=== PATIENT | female | born 1965 | race Caucasian/White ===

== ENCOUNTER 2023-08-05 10:55 | Inpatient (IN) ==
--- NOTE | 2023-08-05 11:51 | Emergency Department Note ---
Impression & Plan Back pain, Lumbar radiculopathy, UTI (urinary tract infection), Mass of buttock ED Provider Note ED Provider Note NAME: SOCORRO VALENZUELA AGE:58 SEX: Female : 1965 ARRIVES VIA: Private vehicle INFORMANT: Patient ED PROVIDER(s): Sybil Milner DO CHIEF COMPLAINT: Right low back pain, right hip pain, radicular pain HPI: This is a 58-year-old female who presents to the emergency department due to concern for worsening right low back pain, right hip pain, and pain rating into the right lower extremity. Symptoms began several months ago and have been slowly worsening. Patient takes Tylenol at home, naproxen, and Flexeril. She states that time it is hard to walk and her leg feels weak. She denies any overt numbness/tingling to the leg or in her genital region. No incontinence or change in urine/stools. Occasionally she has accompanying abdominal pain. No fevers or chills, no nausea or vomiting. Patient is a diabetic. She states she did see Dr. Malagon at [facility] as she was concerned it was her hip. She states she had a hip x-ray performed and was referred for physical therapy. No other imaging. PAST MEDICAL HISTORY:See Below PAST SURGICAL HISTORY:See Below FAMILY HISTORY:See Below SOCIAL HISTORY:See Below HOME MEDICATIONS:See Below ALLERGIES:See Below VITALS:See Below PHYSICAL EXAMINATION: GENERAL: alert, uncomfortable appearing, well nourished, mild distress, non- toxic EYE EXAM: normal conjunctiva, PERRL and EOM's grossly intact OROPHARYNX: no exudate, no erythema, lips, buccal mucosa, and tongue normal and mucous membranes are moist NECK: supple, no nuchal rigidity, no adenopathy, non-tender LUNGS: Clear to auscultation. Normal chest wall mechanics, no w/r/r HEART: no murmurs, S1 normal and S2 normal ABDOMEN: abdomen soft, non-tender, normo-active bowel sounds, no masses, no rebound or guarding. BACK: Pain with palpation across the right lateral lumbar spine and right PSIS. SKIN: no rashes, petechiae, orbruising UPPER EXTREMITIES: upper extremities are grossly normal. Decreased right lower extremity ROM, nml pulses b/l. Normal sensation bilaterally. Pain with palpation over the right lateral and right posterior hip. LOWER EXTREMITIES: No pitting edema. FROM, nml pulses b/l. NEURO EXAM: Normal sensorium, cranial nerves II-XII grossly intact, normal speech, no facial droop,nogross weakness of arms, no gross weakness of legs. Gross sensation intact. No ataxia. Vital Signs: reviewed and remarkable Differential Diagnosis: lumbar radiculopathy, muscle strain, facture, cauda equina, mass, disc herniation, UTI, renal colic, septic arthritis, as well as others were considered MEDICAL DECISION MAKING: This is a 58-year-old female who presents emergency department due to concern for right low back/right hip pain with radiation of the right lower extremity. This has been worsening over the course of several months. Patient was afebrile vital signs stable. Initially we discussed treatment of pain and imaging of the low back. A BSG and UA were also added. Patient's urinalysis suggestive of possible infection and given patient is a diabetic, we discussed additional labs and imaging. Patient continued to have pain despite initial gabapentin and lidocaine, and began requiring IV pain medication. She was given IV Tylenol and IV morphine. Patient sent back for CT of the abdomen pelvis to evaluate for ascending UTI/pyelonephritis. No evidence of SANDRA, mild leukopenia noted on CBC CT of the abdomen and pelvis revealed gluteal mass with lymphadenopathy and evidence of metastatic disease concerning for possible lymphoma. Case discussed with on-call oncology. Extensive time spent at bedside discussing with patient and family. Patient admitted due to ongoing needs for pain control is after additional morphine, Toradol, Valium and Dilaudid she still appeared uncomfortable. Patient was given IV Rocephin initially for UTI, urine culture pending. Patient verbalized understanding of results and plan at this time. Case discussed with hospitalist team for additional evaluation and management. Consultation(s): 1558: Discussed with Dr. Archibald, oncology. No need to transfer. 1628: Discussed with Fiorella Cuellar hospitalist team, for additional evaluation and management. ER Treatment Provided: See below 1252: Patient updated on CT results. Patient now appears markedly more uncomfortable. She states she does have a history of recurrent UTIs, has not had any urinary symptoms recently. Diagnostics Interpreted By Me: -Cardiac Monitoring: An order was placed for continuous cardiac monitoring. The monitor shows a rate of 66 with normal sinus rhythm. -Laboratory studies: As stated above and show below. -Imaging studies: CT lumbar spine: No obvious fracture Triage Nursing Note Reviewed Prior/Outside Records Reviewed Past Med/Surg History Medical History Delivered by section Depression Hypothyroidism GERD (gastroesophageal reflux disease) HLD (hyperlipidemia) HTN (hypertension) DM2 (diabetes mellitus, type 2) Surgical History Hx of tonsillectomy H/O tubal ligation H/O dilation and curettage H/O hernia repair Family History Other Cancer Social History Smoking Status: Former smoker Feels Safe at Home: Yes Allergies Allergies Allergy/AdvReac Type Severity Reaction Status Date / Time adhesive tape Allergy Mild Rash/Itchin Unverified 08/05/23 17:38 [facility] Home Meds Home Medications Medication Instructions Recorded Confirmed metformin 1,000 mg tablet 1,000 mg PO BID ##0 09/21/09 08/05/23 aspirin 81 mg tablet,delayed 81 mg PO QAM ##0 08/15/13 08/05/23 release atorvastatin 20 mg tablet (Lipitor) 20 mg PO PM #0 tabs 08/15/13 08/05/23 citalopram 20 mg tablet 20 mg PO QAM ##0 08/15/13 08/05/23 lisinopril 10 mg tablet 10 mg PO QAM ##0 08/15/13 08/05/23 insulin degludec 100 unit/mL (3 36 unit subcut QAM 05/15/21 08/05/23 mL) subcutaneous pen (Tresiba FlexTouch U-100 insulin) alendronate 70 mg tablet 70 mg PO WK 08/05/23 08/05/23 empagliflozin 25 mg tablet 25 mg PO QAM 08/05/23 08/05/23 (Jardiance) levothyroxine 150 mcg tablet 150 mcg PO DAILYBB 08/05/23 08/05/23 omeprazole 40 mg capsule,delayed 40 mg PO DAILYBB 08/05/23 08/05/23 release oxybutynin chloride 5 mg tablet 5 mg PO AMHS 08/05/23 08/05/23 semaglutide 1 mg/dose (4 mg/3 mL) 1 mg subcut WK 08/05/23 08/05/23 subcutaneous pen injector (Ozempic) Results & Data (ED) Vital Signs Vital Signs - 24 hr 08/05/23 11:02 08/05/23 12:41 08/05/23 16:00 Temperature 36.3 C L Temperature Source Temporal Artery Scan Pulse Rate 97 H Pulse Rate [Finger] 86 65 Respiratory Rate 18 20 12 Respiratory Effort / Characteristics Non-Labored Spontaneous Respiratory Depth Normal Blood Pressure 122/83 Blood Pressure [Right Arm] 122/85 Blood Pressure Mean 96 Blood Pressure Mean [Right Arm] 97 Pulse Oximetry 99 97 94 Oxygen Delivery Method Room Air Room Air Nasal Cannula Oxygen Flow Rate 1 Sepsis Recent Fever Within 48 Hours No Sepsis New/Unexplained Change in Mental Status No Sepsis Action Taken by Nursing No Action Required Laboratory Data 08/05/23 13:11 08/05/23 13:11 Lab Results 08/05/23 08/05/23 Range/Units 11:48 13:11 WBC 3.29 L (4.8-10.8) K/ul RBC 4.02 L (4.20-5.40) M/uL Hgb 11.7 L (12.0-16.0) g/dl Hct 36.9 L (37.0-47.0) % MCV 91.8 (80.0-100.0) fL MCH 29.1 (25.0-34.0) pg MCHC 31.7 L (32.0-36.0) g/dL RDW Std Deviation 50.7 H (36.4-46.3) fL RDW Coeff of Lisset 15.1 H (11.5-14.5) % Plt Count 233 (130-400) K/uL MPV 8.8 L (9.4-12.4) fL Immature Gran % (Auto) 0.9 % Neut % (Auto) 54.8 % Lymph % (Auto) 34.3 % Boundary % (Auto) 7.9 % Eos % (Auto) 1.5 % Baso % (Auto) 0.6 % Neut # (Auto) 1.80 (1.40-6.50) K/uL Lymph # (Auto) 1.13 L (1.20-3.40) K/uL Boundary # (Auto) 0.26 (0.11-0.59) K/uL Eos # (Auto) 0.05 (0.00-0.50) K/uL Baso # (Auto) 0.02 (0.00-0.20) K/uL Immature Gran # (Auto) 0.03 (0.01-0.20) K/uL Sodium 137 (136-145) mmol/L Potassium 4.4 (3.5-5.1) mmol/L Chloride 101 (98-107) mmol/L Carbon Dioxide 28 (21-32) mmol/L Anion Gap 8 (3-11) BUN 18 (6-23) mg/dl Creatinine 0.59 L (0.6-1.2) mg/dl Est Cr Clr Drug Dosing 111.5 ml/min Est GFR ( Amer) 118.8 ml/min Est GFR (Non-Af Amer) 102.5 ml/min BUN/Creatinine Ratio 30.5 H (10-20) Glucose 78 (70-99(Fasting)) mg/dl POC Glucose 107 H (70-99) mg/dl Calcium 9.7 (8.6-10.3) mg/dl Total Bilirubin 0.5 (0.2-1.0) mg/dl AST 29 (13-39) U/L ALT 20 (7-52) U/L Alkaline Phosphatase 91 (34-104) U/L Total Protein 6.6 (6.0-8.3) gm/dl Albumin 4.3 (3.4-5.0) gm/dl Globulin 2.3 L (2.5-4.0) gm/dl Albumin/Globulin Ratio 1.9 (0.9-2) Administered Medications Gabapentin (Gabapentin 100 Mg Cap) [facility] [place] Stop: 09/04/23 11:44 Last Admin: 08/05/23 12:03 Dose: 100 mg Documented By: MMG Gadobutrol (Gadobutrol 65ml Vial) 8.7 ml IV ONCE ONE Stop: 08/05/23 18:30 Last Admin: 08/05/23 18:30 Dose: 8.7 ml Documented By: [facility] Hydromorphone HCl (Hydromorphone Inj 0.5 Mg/0.5 Ml Syr) 0.5 mg IV Q15M PRN PRN Reason: Pain Stop: 08/19/23 15:25 Last Admin: 08/05/23 17:17 Dose: 0.5 mg Documented By: Admin: 08/05/23 16:13 Dose: 0.5 mg Documented By: Admin: 08/05/23 15:55 Dose: 0.5 mg Documented By: MARIPOSA Polyethylene Glycol (Polyethylene (Miralax) 17 Gm Pack) 17 gm PO DAILY JOHN Stop: 09/04/23 17:29 Last Admin: 08/05/23 17:17 Dose: 17 gm Documented By: ABY Discontinued Medications Diazepam (Diazepam 5 Mg/Ml 10ml Vial) 2 mg IV NOW STA Stop: 08/05/23 13:29 Last Admin: 08/05/23 13:33 Dose: 2 mg Documented By: AIMEE Docusate Sodium (Docusate Sodium 100 Mg Cap) 100 mg PO NOW ONE Stop: 08/05/23 17:11 Last Admin: 08/05/23 17:17 Dose: 100 mg Documented By: ABY Sodium Chloride (Nss) 1,000 mls @ 999 mls/hr IV .Q1H1M ONE Stop: 08/05/23 13:52 Last Infusion: 08/05/23 14:26 Dose: Infused Documented By: Admin: 08/05/23 13:08 Dose: 999 mls/hr Documented By: AIMEE Acetaminophen (Ofirmev) 1,000 mg in 100 mls @ 400 mls/hr IV NOW STA Stop: 08/05/23 13:06 Last Infusion: 08/05/23 13:25 Dose: Infused Documented By: Admin: 08/05/23 13:08 Dose: 400 mls/hr Documented By: AIMEE Ceftriaxone Sodium (Rocephin) 2,000 mg in 50 mls @ 100 mls/hr IV NOW STA Stop: 08/05/23 15:26 Last Infusion: 08/05/23 17:03 Dose: Infused Documented By: Admin: 08/05/23 15:38 Dose: 100 mls/hr Documented By: MARIPOSA Ioversol (Optiray 320 100ml) 93 ml IV ONCE ONE Stop: 08/05/23 14:21 Last Admin: 08/05/23 14:20 Dose: 93 ml Documented By: MOY Ioversol (Optiray 320 100ml) 90 ml IV ONCE ONE Stop: 08/05/23 18:03 Last Admin: 08/05/23 18:04 Dose: 90 ml Documented By: NIKOLAS Ketorolac Tromethamine (Ketorolac Tromethamine 15 Mg/Ml Vial) 10 mg IV NOW ONE Stop: 08/05/23 12:53 Last Admin: 08/05/23 13:09 Dose: 10 mg Documented By: AIMEE Lidocaine (Lidocaine 5% 1 Patch) 1 patch TD NOW STA Stop: 08/05/23 11:43 Last Admin: 08/05/23 11:52 Dose: 1 patch Documented By: KACIE Morphine Sulfate (Morphine Sulfate 4 Mg/Ml 1 Ml Carp\Vial) 4 mg IV NOW STA Stop: 08/05/23 12:53 Last Admin: 08/05/23 13:09 Dose: 4 mg Documented By: AIMEE Morphine Sulfate (Morphine Sulfate 4 Mg/Ml 1 Ml Carp\Vial) 4 mg IV NOW STA Stop: 08/05/23 13:45 Last Admin: 08/05/23 13:46 Dose: 4 mg Documented By: AIMEE Ondansetron HCl (Ondansetron Inj 2 Mg/Ml 2 Ml Vial) Confirm Administered Dose 4 mg .ROUTE .STK-MED ONE Stop: 08/05/23 17:40 Last Admin: 08/05/23 17:41 Dose: 4 mg Documented By: ABY Imaging Data Radiologist's Impression: Lumbar Spine CT 08/05/23 11:42 CT lumbar spine wo con CLINICAL HISTORY: low back pain, right sided TECHNIQUE: Multidetector row helical CT of the lumbar spine was performed without administration of intravenous contrast. Coronal and sagittal reformations were obtained. Automated dose lowering techniques and/or adjustment according to patient size were utilized for this exam. CT DOSE: 1062.24 mGy.cm Comparison: Comparison is made to CT abdomen pelvis 07/16/2020 FINDINGS: For counting purposes, the last complete intervertebral disc space is considered L5-S1. No acute fractures are identified. Prominent osteophyte formation and mild loss of height of the L3 vertebral body is unchanged from prior exam. Vertebral body alignment is within normal limits. Surrounding soft tissues are unremarkable. IMPRESSION: Degenerative changes without evidence of acute bony injury. ACT 112: Negative or not required by law. Electronically signed by: Rishi Mckeon M.D. 08/05/2023 12:37 PM Abdomen/Pelvis CT 08/05/23 12:52 CT SCAN OF THE ABDOMEN AND PELVIS WITH IV CONTRAST CLINICAL HISTORY: Urinary tract infection. Back pain. COMPARISON STUDY: Abdominal CT dated 05/15/2021. TECHNIQUE: Following the IV administration of 93 cc of Optiray 320, CT scan of the abdomen and pelvis is performed from the lung bases to the proximal femora. Images are reviewed in the axial, sagittal, and coronal planes. IV contrast was administered without complication. A dose lowering technique was utilized adhering to the principles of ALARA. CT DOSE: 1342.8 mGy.cm FINDINGS: Lung bases: The heart is normal in size and without pericardial effusion. There are coronary artery calcifications. The lung bases are clear. Liver: The contrast-enhanced liver is normal in size, contour, and attenuation. There is no intrahepatic biliary ductal dilatation. The hepatic veins and portal veins are patent. Gallbladder: The gallbladder is distended but otherwise normal in appearance.. Spleen: The spleen is mildly enlarged measuring 13.5 cm in length. There are numerous low attenuation splenic mass lesions. These measure up to 4.8 cm. Pancreas: Unremarkable. Adrenal glands: Unremarkable. Kidneys: The contrast enhanced kidneys are normal in size and without hydronephrosis. The kidneys enhance symmetrically. Abdominal vasculature: The abdominal aorta is normal in course and caliber noting mild to moderate atherosclerotic calcification. Bowel: There is moderate to severe constipation. No bowel obstruction is seen. The appendix is not visualized. Peritoneum: There is no intraperitoneal free air or abdominal ascites. There is evidence of previous ventral hernia repairs. A residual fat-containing hernia is seen in the left ventral pelvis. Lymphadenopathy: There are mildly enlarged retroperitoneal lymph nodes. An aortocaval node on image #136 measures 2.2 x 1.2 cm. A right iliac chain node on image #245 measures 1.9 x 1.6 cm. There is confluent lymphadenopathy along the right external iliac chain extending into the groin. This encases the iliac vessels and measures approximately 8 x 3.5 cm as seen on image #288. There are likely enlarged right groin nodes. The lesion on image #29 measures 2.6 cm. Pelvic viscera: There is an air-fluid level within the bladder. The bladder is otherwise normal as imaged. The uterus and adnexa are normal as visualized. There is marked masslike expansion of the right gluteus medius muscles which extends into the right obturator foramen. There may also be involvement of the proximal right rectus femoris muscle. A 2.7 cm lesion is seen in the left gluteus minimus muscle on image #210. Skeletal structures: The skeletal structures are heterogeneously osteopenic. There is mild lumbosacral spondylosis. There is a chronic superior endplate compression deformity of L3. Metastatic bony involvement is suspected throughout the bony structures. Sclerotic change is noted in the sacroiliac joints and pubic symphysis. IMPRESSION: 1. There is marked masslike expansion of the right gluteus medius muscle extending into the right back shoe operator foramen. There is also mass involving the right rectus femoris muscle and the left gluteus minimus. Additionally, the spleen is mildly enlarged with several splenic masses. There are also enlarged retroperitoneal lymph nodes, as well as right iliac chain lymphadenopathy extending into tube the right groin. This constellation of findings is highly suggestive of a neoplastic process such as lymphoma. Tissue sampling will likely be required for further assessment. 2. The skeletal structures are significantly heterogeneous suggesting metastatic bone involvement. 3. There is an air-fluid level within the bladder, possibly related to instrumentation. Correlate with clinical findings and urinalysis. 4. Coronary artery atherosclerosis. 5. Moderate to severe constipation. 6. Additional findings as above. ACT 112: Positive. There are findings on this exam that require communication between the performing entity and the patient following Patient Test Result Information Act ([place] Act 112) guidelines. Electronically signed by: Igor Mccall M.D. 08/05/2023 2:53 PM Discharge Plan Visit Data Chief Complaint: Back Injury/Pain Stated Complaint: PAIN IN LOWER BACK AND LEGS ED Provider: Sybil Milner Discharge Problem: Back pain, Lumbar radiculopathy, UTI (urinary tract infection), Mass of buttock Patient Disposition: Admitted As Inpatient Discharge Instructions Interventions: ED Discharge Assessment Last Done: 08/05/23 17:04
[2023-08-05] MEDS: LIDOCAINE 5% 1 PATCH TD STA (11:52)
[2023-08-05] MEDS: GABAPENTIN 100 MG CAP PO SCH (12:03)
[2023-08-05 12:24] LABS: Appearance Urine Cloudy (Clear); Bacteria Urine Automated 4+ (Negative); Bilirubin Urine Negative (Negative); Blood Urine 1+ (Negative); Color Urine Yellow; Epithelial Cell Urine Auto 20-30 /lpf (0-5); Glucose Urine UA 3+ (Negative); Ketones Urine Negative (Negative); Leukocyte Esterase Urine 3+ (Negative); Nitrite Urine Negative (Negative); Protein Urine Negative (Negative); Urobilinogen Urine Negative (Negative); WBC Urine Automated >30 /hpf (0-5)
--- NOTE | 2023-08-05 12:38 | CT Scan Report ---
CT lumbar spine wo con CLINICAL HISTORY: low back pain, right sided TECHNIQUE: Multidetector row helical CT of the lumbar spine was performed without administration of i ntravenous contrast. Coronal and sagittal reformations were obtained. Automated dose lowering techniq ues and/or adjustment according to patient size were utilized for this exam. CT DOSE: 1062.24 mGy.cm Comparison: Comparison is made to CT abdomen pelvis 07/16/2020 FINDINGS: For counting purposes, the last complete intervertebral disc space is considered L5-S1. No acute fractures are identified. Prominent osteophyte formation and mild loss of height of the L3 v ertebral body is unchanged from prior exam. Vertebral body alignment is within normal limits. Surroun ding soft tissues are unremarkable. IMPRESSION: Degenerative changes without evidence of acute bony injury. ACT 112: Negative or not required by law. Electronically signed by: Rishi Mckeon M.D. 08/05/2023 12:37 PM
[2023-08-05] MEDS: ACETAMINOPHEN 1,000 MG/100 ML VIAL IV STA (13:08)
[2023-08-05] MEDS: SODIUM CHLORIDE 0.9% 1,000 ML IV ONE (13:08)
[2023-08-05] MEDS: MoRPHine SULFATE 4 MG/ML 1 ML CARP\\VIAL IV STA ×2 (13:09→13:46)
[2023-08-05] MEDS: KETOROLAC TROMETHAMINE 15 MG/ML VIAL IV ONE ×2 (13:09→21:53)
[2023-08-05 13:29] LABS: Basophils # (auto) 0.02 K/uL (0.00-0.20); Basophils % (auto) 0.6 %; Eosinophils # (auto) 0.05 K/uL (0.00-0.50); Eosinophils % (auto) 1.5 %; Hematocrit (blood only) 36.9 % (37.0-47.0); Hemoglobin 11.7 g/dl (12.0-16.0); Immature Granulocytes # (auto) 0.03 K/uL (0.01-0.20); Immature Granulocytes % (auto) 0.9 %; Lymphocytes # (auto) 1.13 K/uL (1.20-3.40); Lymphocytes % (auto) 34.3 %; Mean Corpuscular Hemoglobin 29.1 pg (25.0-34.0); Mean Corpuscular Hgb Conc 31.7 g/dL (32.0-36.0); Mean Corpuscular Volume 91.8 fL (80.0-100.0); Mean Platelet Volume 8.8 fL (9.4-12.4); Monocytes # (auto) 0.26 K/uL (0.11-0.59); Monocytes % (auto) 7.9 %; Neutrophils % (auto) 54.8 %; Platelet Count 233 K/uL (130-400); RDW Coefficient of Variation 15.1 % (11.5-14.5); RDW Standard Deviation 50.7 fL (36.4-46.3); Red Blood Count 4.02 M/uL (4.20-5.40); White Blood Count 3.29 K/ul (4.8-10.8)
[2023-08-05] MEDS: diazePAM 5 MG/ML 10ML VIAL IV STA (13:33)
[2023-08-05 13:53] LABS: Albumin Globulin Ratio 1.9 (0.9-2); Albumin Level 4.3 gm/dl (3.4-5.0); BUN Creatinine Ratio 30.5 (10-20); Bilirubin,Total 0.5 mg/dl (0.2-1.0); Calcium 9.7 mg/dl (8.6-10.3); Creatinine Clr Calc Pharmacy 111.5 ml/min; Est GFR (African American) 118.8 ml/min; Est GFR (Non-African American) 102.5 ml/min; Globulin 2.3 gm/dl (2.5-4.0); Potassium 4.4 mmol/L (3.5-5.1); Total Protein 6.6 gm/dl (6.0-8.3)
[2023-08-05] MEDS: OPTIRAY 320 100ml IV ONE ×2 (14:20→18:04)
--- NOTE | 2023-08-05 14:54 | CT Scan Report ---
CT SCAN OF THE ABDOMEN AND PELVIS WITH IV CONTRAST CLINICAL HISTORY: Urinary tract infection. Back pain. COMPARISON STUDY: Abdominal CT dated 05/15/2021. TECHNIQUE: Following the IV administration of 93 cc of Optiray 320, CT scan of the abdomen and pelvi s is performed from the lung bases to the proximal femora. Images are reviewed in the axial, sagittal , and coronal planes. IV contrast was administered without complication. A dose lowering technique wa s utilized adhering to the principles of ALARA. CT DOSE: 1342.8 mGy.cm FINDINGS: Lung bases: The heart is normal in size and without pericardial effusion. There are coronary artery c alcifications. The lung bases are clear. Liver: The contrast-enhanced liver is normal in size, contour, and attenuation. There is no intrahepa tic biliary ductal dilatation. The hepatic veins and portal veins are patent. Gallbladder: The gallbladder is distended but otherwise normal in appearance.. Spleen: The spleen is mildly enlarged measuring 13.5 cm in length. There are numerous low attenuation splenic mass lesions. These measure up to 4.8 cm. Pancreas: Unremarkable. Adrenal glands: Unremarkable. Kidneys: The contrast enhanced kidneys are normal in size and without hydronephrosis. The kidneys enh ance symmetrically. Abdominal vasculature: The abdominal aorta is normal in course and caliber noting mild to moderate at herosclerotic calcification. Bowel: There is moderate to severe constipation. No bowel obstruction is seen. The appendix is not v isualized. Peritoneum: There is no intraperitoneal free air or abdominal ascites. There is evidence of previous ventral hernia repairs. A residual fat-containing hernia is seen in the left ventral pelvis. Lymphadenopathy: There are mildly enlarged retroperitoneal lymph nodes. An aortocaval node on image # 136 measures 2.2 x 1.2 cm. A right iliac chain node on image #245 measures 1.9 x 1.6 cm. There is con fluent lymphadenopathy along the right external iliac chain extending into the groin. This encases th e iliac vessels and measures approximately 8 x 3.5 cm as seen on image #288. There are likely enlarge d right groin nodes. The lesion on image #29 measures 2.6 cm. Pelvic viscera: There is an air-fluid level within the bladder. The bladder is otherwise normal as im aged. The uterus and adnexa are normal as visualized. There is marked masslike expansion of the right gluteus medius muscles which extends into the right obturator foramen. There may also be involvement of the proximal right rectus femoris muscle. A 2.7 cm lesion is seen in the left gluteus minimus mus jane on image #210. Skeletal structures: The skeletal structures are heterogeneously osteopenic. There is mild lumbosacra l spondylosis. There is a chronic superior endplate compression deformity of L3. Metastatic bony invo lvement is suspected throughout the bony structures. Sclerotic change is noted in the sacroiliac join ts and pubic symphysis. IMPRESSION: 1. There is marked masslike expansion of the right gluteus medius muscle extending into the right ope rator foramen. There is also mass involving the right rectus femoris muscle and the left gluteus mini mus. Additionally, the spleen is mildly enlarged with several splenic masses. There are also enlarged retroperitoneal lymph nodes, as well as right iliac chain lymphadenopathy extending into tube the ri ght groin. This constellation of findings is highly suggestive of a neoplastic process such as lympho ma. Tissue sampling will likely be required for further assessment. 2. The skeletal structures are significantly heterogeneous suggesting metastatic bone involvement. 3. There is an air-fluid level within the bladder, possibly related to instrumentation. Correlate wit h clinical findings and urinalysis. 4. Coronary artery atherosclerosis. 5. Moderate to severe constipation. 6. Additional findings as above. ACT 112: Positive. There are findings on this exam that require communication between the performing entity and the patient following Patient Test Result Information Act ([place] Act 112) guidelines. Electronically signed by: Igor Mccall M.D. 08/05/2023 2:53 PM
[2023-08-05] MEDS: cefTRIAXone SODIUM 2,000 MG/50 ML BAG IV STA (15:38)
[2023-08-05] MEDS: HYDROmorphone INJ 0.5 MG/0.5 ML SYR IV PRN (15:55)
--- NOTE | 2023-08-05 16:30 | History & Physical Report ---
Date of Service August 05, 2023 Assessment & Plan (1) Back pain: (2) Lumbar radiculopathy: Plan: -CT abdomen pelvis reviewed: 1. There is marked masslike expansion of the right gluteus medius muscle extending into the right quick mixer operator foramen. There is also mass involving the right rectus femoris muscle and the left gluteus minimus. Additionally, the spleen is mildly enlarged with several splenic masses. There are also enlarged retroperitoneal lymph nodes, as well as right iliac chain lymphadenopathy extending into tube the right groin. This constellation of findings is highly suggestive of a neoplastic process such as lymphoma. Tissue sampling will likely be required for further assessment. 2. The skeletal structures are significantly heterogeneous suggesting metastatic bone involvement. 3. There is an air-fluid level within the bladder, possibly related to instrumentation. Correlate with clinical findings and urinalysis. 4. Coronary artery atherosclerosis. 5. Moderate to severe constipation. - Concern for new lymphoma with imaging studies-discussed with the patient at bedside at length - Check MRI brain w/wo contrast and CT chest w/wo contrast to eval for metastasis - IR to biopsy while admitted, they are not available over the weekend for such procedure -WBC 2.29, hemoglobin 11.7, RBC 4.02, hematocrit 36.9, platelet 233 -Oncology consult placed, Self-aware -Pain control with IV MS 2 mg Q3 H as she is now somnolent/sleepy status post multiple Dilaudid doses - Bowel regimen with constipation noted above (3) UTI (urinary tract infection): Plan: - Started IV ceftriaxone, follow urine culture previously has grown out E. coli on EMR link epic review - Follow blood cultures - Pt denies urinary symptoms presently, reports stress incontinence at baseline (4) DM2 (diabetes mellitus, type 2): Plan: -Uses Tresiba 38 units daily at home, will switch to Lantus here, hold home me tformin and Jardiance, uses Ozempic once per week -ISS with Accu-Cheks ACHS -A1c with a.m. labs - Allow heart healthy DM diet (5) HTN (hypertension): (6) HLD (hyperlipidemia): Plan: -Chronic, stable, continue antihypertensive medications, statin therapy, baby aspirin (7) GERD (gastroesophageal reflux disease): Plan: Chronic and stable (8) Hypothyroidism: Plan: -Check TSH, free T4 Continue levothyroxine 150 mcg daily (9) Depression: Plan: -History of such, continue citalopram DVT ppx: heparin subq teds, scds Lines: Obtain 2 PIV FEN/GI: HH/DM Diet CODE: FULL Dispo: From home, likely to remain in the hospital x 2 days A total of 80 minutes were spent with greater than 50% of that time face to face with the patient, personally reviewing all current laboratories, imaging studies, past medication reconciliation, outpatient chart review, and discussion with specialists to collaborate care for the patient with attending. Please see attending documentation for corrections and/or additions. History of Present Illness Chief Complaint: Lower back pain, urinary symptoms Primary Care Provider: Héctor Johnson MD This is a 58 yo F with PMhx of recurrent UTI, DM type II, hypothyroidism, HTN, HLD, FELICITY, GERD who presents to the hospital with worsening back pain. Patient underwent workup with CT abdomen pelvis for concerns with recurrent UTI and p ossible kidney involvement and is found to have new masslike involvement in the right gluteus muscle. Pt reports having had R glute pain leg pain for about 2-3 months. She had previously seen ortho about 3 weeks ago where she had an image of her R hip done but it was negative and was referred to PT. Pt was placed on meloxicam per ortho, but states that this got lost and was taking naproxen instead for pain. She also uses flexeril for extra pain relief. PT states she has numbness and tingling in her lower legs and feet for unknown timeframe. She notices it in her fingers moreso while crochetting. Pt states feels lethargic and weakness all over. Pt reports significant weight loss over the past few years. Denies poor po intake. Pt admits to night sweats but didn't think about it much. Her last menses was 16 years ago, and thought it was menopausal hot flashes. Reports SINGER several days in past few weeks. Denies any urinary symptoms, burning, hematuria. Social Hx: hx of tobacco smoking at age 16, quit 25 years ago. No alcohol use or ilicit drug use. Family Hx: Mother- skin cancer Maternal Aunt: Leukemia Allergies Allergy/AdvReac Type Severity Reaction Status Date / Time adhesive tape Allergy Mild Rash/Itchin Unverified 08/05/23 17:38 ess Home Medications Medication Instructions Recorded Confirmed Type metformin 1,000 mg tablet 1,000 mg PO BID ##0 09/21/09 08/05/23 History aspirin 81 mg tablet,delayed 81 mg PO QAM ##0 08/15/13 08/05/23 History release atorvastatin 20 mg tablet (Lipitor) 20 mg PO PM #0 tabs 08/15/13 08/05/23 History citalopram 20 mg tablet 20 mg PO QAM ##0 08/15/13 08/05/23 History lisinopril 10 mg tablet 10 mg PO QAM ##0 08/15/13 08/05/23 History insulin degludec 100 unit/mL (3 36 unit subcut QAM 05/15/21 08/05/23 History mL) subcutaneous pen (Tresiba FlexTouch U-100 insulin) alendronate 70 mg tablet 70 mg PO WK 08/05/23 08/05/23 History empagliflozin 25 mg tablet 25 mg PO QAM 08/05/23 08/05/23 History (Jardiance) levothyroxine 150 mcg tablet 150 mcg PO DAILYBB 08/05/23 08/05/23 History omeprazole 40 mg capsule,delayed 40 mg PO DAILYBB 08/05/23 08/05/23 History release oxybutynin chloride 5 mg tablet 5 mg PO AMHS 08/05/23 08/05/23 History semaglutide 1 mg/dose (4 mg/3 mL) 1 mg subcut WK 08/05/23 08/05/23 History subcutaneous pen injector (Ozempic) Past Med/Surg History Medical History Delivered by section Depression Hypothyroidism GERD (gastroesophageal reflux disease) HLD (hyperlipidemia) HTN (hypertension) DM2 (diabetes mellitus, type 2) Surgical History Hx of tonsillectomy H/O tubal ligation H/O dilation and curettage H/O hernia repair Family History Other Cancer Social History Smoking Status: Former smoker Second Hand Exposure: No; Do You Dip or Chew Tobacco: No; Tobacco Cessation Education Requested by Patient: No Hx Alcohol Use: Yes Alcohol type: wine Hx Substance Use: No Preferred Language: Northern Irish Communication Ability: Effective Skull Grinder Required: No Beliefs That Will Affect Care: None Current Living Situation: Spouse Feels Safe at Home: Yes Safety Concerns: Feels Safe At This Time Assistive Devices: Cane, Glasses, Hospital Bed and Walker Review of Systems Review of Systems: Constitutional: No fever, sweats or chills Eyes: No diplopia, no worsening or blurred vision ENT: normal hearing, no trouble swallowing Respiratory: No cough, sputum, dyspnea at rest or on exertion Cardiovascular: No chest pain, tightness or palpitations Abdomen: No pain, nausea, vomiting, diarrhea or constipation Musculoskeletal: No joint pain, calf pain, swelling Neurologic: No weakness, numbness/tingling, or balance problems Psychiatric: No anxiety or depression Skin: No rash or itch Physical Exam Physical Exam: General: awake, alert, no apparent distress, appears somnolent but has had multiple pain medications Head: Normocephalic, atraumatic ENT: PERRL, EOMI, no pharyngeal exudate, mucous membranes moist Psych: Normal mood and affect Neuro: AAO x 3, strength intact bilaterally and rated 5/5, no motor deficits, speech is clear, no peripheral sensory deficits Please refer to attending addendum for further PE. Results & Data Results & Data Vital Signs (Past 12 Hours) Vital Signs Temp Pulse Pulse Resp BP BP Pulse Ox 08/05/23 16:00 65 12 94 08/05/23 12:41 86 20 122/85 97 08/05/23 11:02 36.3 C L 97 H 18 122/83 99 O2 Del Method O2 Flow Rate 08/05/23 16:00 Nasal Cannula 1 08/05/23 12:41 Room Air 08/05/23 11:02 Room Air Laboratory Results 08/05/23 Unknown Urine Culture - Pending Urine,Clean Catch 08/05/23 08/05/23 08/05/23 Unknown 13:11 11:48 WBC 3.29 L RBC 4.02 L Hgb 11.7 L Hct 36.9 L MCV 91.8 MCH 29.1 MCHC 31.7 L RDW Std Deviation 50.7 H RDW Coeff of Lsiset 15.1 H Plt Count 233 MPV 8.8 L Immature Gran % (Auto) 0.9 Neut % (Auto) 54.8 Lymph % (Auto) 34.3 [place] % (Auto) 7.9 Eos % (Auto) 1.5 Baso % (Auto) 0.6 Neut # (Auto) 1.80 Lymph # (Auto) 1.13 L [place] # (Auto) 0.26 Eos # (Auto) 0.05 Baso # (Auto) 0.02 Immature Gran # (Auto) 0.03 Sodium 137 Potassium 4.4 Chloride 101 Carbon Dioxide 28 Anion Gap 8 BUN 18 Creatinine 0.59 L Est Cr Clr Drug Dosing 111.5 Est GFR ( Amer) 118.8 Est GFR (Non-Af Amer) 102.5 BUN/Creatinine Ratio 30.5 H Glucose 78 POC Glucose 107 H Calcium 9.7 Total Bilirubin 0.5 AST 29 ALT 20 Alkaline Phosphatase 91 Total Protein 6.6 Albumin 4.3 Globulin 2.3 L Albumin/Globulin Ratio 1.9 Urine Color Yellow Urine Appearance Cloudy A Urine pH 6.0 Ur Specific [place] 1.020 Urine Protein Negative Urine Glucose (UA) 3+ H Urine Ketones Negative Urine Blood 1+ H Urine Nitrite Negative Urine Bilirubin Negative Urine Urobilinogen Negative Ur Leukocyte Esterase 3+ H Urine WBC (Auto) >30 H Urine RBC (Auto) 5-10 H U Hyaline Cast (Auto) 1-5 U Epithel Cells (Auto) 20-30 H Urine Bacteria (Auto) 4+ H Diagnostic Findings Lumbar Spine CT 08/05/23 11:42 CT lumbar spine wo con CLINICAL HISTORY: low back pain, right sided TECHNIQUE: Multidetector row helical CT of the lumbar spine was performed without administration of intravenous contrast. Coronal and sagittal reformati ons were obtained. Automated dose lowering techniques and/or adjustment according to patient size were utilized for this exam. CT DOSE: 1062.24 mGy.cm Comparison: Comparison is made to CT abdomen pelvis 07/16/2020 FINDINGS: For counting purposes, the last complete intervertebral disc space is considered L5-S1. No acute fractures are identified. Prominent osteophyte formation and mild loss of height of the L3 vertebral body is unchanged from prior exam. Vertebral body alignment is within normal limits. Surrounding soft tissues are unremarkable. IMPRESSION: Degenerative changes without evidence of acute bony injury. ACT 112: Negative or not required by law. Electronically signed by: Rishi Mckeon M.D. 08/05/2023 12:37 PM Abdomen/Pelvis CT 08/05/23 12:52 CT SCAN OF THE ABDOMEN AND PELVIS WITH IV CONTRAST CLINICAL HISTORY: Urinary tract infection. Back pain. COMPARISON STUDY: Abdominal CT dated 05/15/2021. TECHNIQUE: Following the IV administration of 93 cc of Optiray 320, CT scan of the abdomen and pelvis is performed from the lung bases to the proximal femora. Images are reviewed in the axial, sagittal, and coronal planes. IV contrast was administered without complication. A dose lowering technique was utilized adhering to the principles of ALARA. CT DOSE: 1342.8 mGy.cm FINDINGS: Lung bases: The heart is normal in size and without pericardial effusion. There are coronary artery calcifications. The lung bases are clear. Liver: The contrast-enhanced liver is normal in size, contour, and attenuation. There is no intrahepatic biliary ductal dilatation. The hepatic veins and portal veins are patent. Gallbladder: The gallbladder is distended but otherwise normal in appearance.. Spleen: The spleen is mildly enlarged measuring 13.5 cm in length. There are numerous low attenuation splenic mass lesions. These measure up to 4.8 cm. Pancreas: Unremarkable. Adrenal glands: Unremarkable. Kidneys: The contrast enhanced kidneys are normal in size and without hydronephrosis. The kidneys enhance symmetrically. Abdominal vasculature: The abdominal aorta is normal in course and caliber noting mild to moderate atherosclerotic calcification. Bowel: There is moderate to severe constipation. No bowel obstruction is seen. The appendix is not visualized. Peritoneum: There is no intraperitoneal free air or abdominal ascites. There is evidence of previous ventral hernia repairs. A residual fat-containing hernia is seen in the left ventral pelvis. Lymphadenopathy: There are mildly enlarged retroperitoneal lymph nodes. An aortocaval node on image #136 measures 2.2 x 1.2 cm. A right iliac chain node on image #245 measures 1.9 x 1.6 cm. There is confluent lymphadenopathy along the right external iliac chain extending into the groin. This encases the iliac vessels and measures approximately 8 x 3.5 cm as seen on image #288. There are likely enlarged right groin nodes. The lesion on image #29 measures 2.6 cm. Pelvic viscera: There is an air-fluid level within the bladder. The bladder is otherwise normal as imaged. The uterus and adnexa are normal as visualized. There is marked masslike expansion of the right gluteus medius muscles which extends into the right obturator foramen. There may also be involvement of the proximal right rectus femoris muscle. A 2.7 cm lesion is seen in the left gl uteus minimus muscle on image #210. Skeletal structures: The skeletal structures are heterogeneously osteopenic. There is mild lumbosacral spondylosis. There is a chronic superior endplate compression deformity of L3. Metastatic bony involvement is suspected throughout the bony structures. Sclerotic change is noted in the sacroiliac joints and pubic symphysis. IMPRESSION: 1. There is marked masslike expansion of the right gluteus medius muscle extending into the right quick mixer operator foramen. There is also mass involving the right rectus femoris muscle and the left gluteus minimus. Additionally, the spleen is mildly enlarged with several splenic masses. There are also enlarged retroperitoneal lymph nodes, as well as right iliac chain lymphadenopathy extending into tube the right groin. This constellation of findings is highly suggestive of a neoplastic process such as lymphoma. Tissue sampling will likely be required for further assessment. 2. The skeletal structures are significantly heterogeneous suggesting metastatic bone involvement. 3. There is an air-fluid level within the bladder, possibly related to instrumentation. Correlate with clinical findings and urinalysis. 4. Coronary artery atherosclerosis. 5. Moderate to severe constipation. 6. Additional findings as above. ACT 112: Positive. There are findings on this exam that require communication between the performing entity and the patient following Patient Test Result Information Act ([place] Act 112) guidelines. Electronically signed by: Igor Mccall M.D. 08/05/2023 2:53 PM Code Status & VTE Plan Code Status Full code - discussed with pt at bedside Supervising Physician Co-Signing Physician Notes Patient is a 58-year-old female with history of diabetes mellitus, hypothyroidism and other medical problems presents with history of worsening right hip/low back pain since 2 to 3 months duration resulting in ambulatory dysfunction. She was evaluated by orthopedics 3 weeks ago and had a hip x-ray and was informed that her pain is not related to her hip and was advised to have PT. Patient does report chronic numbness and tingling in lower and upper extremities. Reports generalized weakness today. Also admits to have significant weight loss of unknown quality, duration and night sweats which she thought to be secondary to menopause. She has been having headaches for the past few weeks as well. Please review HPI for complete details of presentation. I personally reviewed blood work and imaging studies. Physical Exam: Vitals signs as noted above General Appearance:Obese, no apparent distress Head: normocephalic, Atraumatic Eyes: normal inspection, EOMI Neck: supple, Trachea midline Respiratory/Chest: Normal breath sounds, CTA, No accessory muscle use Cardiovascular: S1, S2, No murmur Abdomen/GI:Soft, Non tender, Bowel sounds present Extremities/Musculoskeletal:normal inspection, no edema, R hip mildly palpable mass Neurologic/Psych:AAOX3, grossly no focal neurological deficits Skin: normal color, warm Suspected lymphoma/metastatic disease Right gluteal mass Splenomegaly with retroperitoneal lymphadenopathy Leukopenia, normocytic anemia Constipation Suspected UTI Abnormal thyroid function test Agree with anemia workup, MRI brain, CT chest Peripheral smear pending Oncology consulted Gentle IV fluids PT OT, fall precautions May need biopsy by IR Further management based on above testing Pain control Bowel regimen to prevent constipation Continue Rocephin empirically for now Continue insulin for management of diabetes mellitus I personally interviewed and examined at bedside. Patient's care is coordinated with Altagracia Robert PA-C. I have reviewed the advanced practitioner's documentation, and I agree with, and take responsibility for that plan of care. Please refer to the documentation above for details of patient's presentation and for discussion of other issues. I spent a total [id number] coordinating, documenting, and providing care for this patient excluding time spent in the performance of separately billed services.
[2023-08-05] MEDS ORDERED: bisacodyL 10 MG SUPP PR PRN (17:10)
[2023-08-05] MEDS: DOCUSATE SODIUM 100 MG CAP PO ONE (17:17)
[2023-08-05] MEDS: POLYETHYLENE (MIRALAX) 17 GM PACK PO SCH (17:17)
[2023-08-05] MEDS: ONDANSETRON INJ 2 MG/ML 2 ML VIAL ONE (17:41)
[2023-08-05] MEDS: GADOBUTROL 65ML VIAL IV ONE (18:30)
--- NOTE | 2023-08-05 18:30 | CT Scan Report ---
CT chest diagnostic wo/w con CLINICAL HISTORY: Eval for metastasis TECHNIQUE: Multidetector row helical CT of the chest was performed without and with intravenous contr ast. Coronal and sagittal reformations were obtained. Automated dose lowering techniques and/or adjus tment according to patient size were utilized for this exam. CT DOSE: 1565.74 mGy.cm Comparison: Comparison is made to rib series 08/15/[address] abdomen pelvis 08/05/2023 FINDINGS: Lungs and pleura: Minimal atelectatic changes are seen. There are a few additional nodules are seen o n the left. There is a 3 mm nodule in the lingula (image 110). Heart and pericardium: Heart size is normal. No pericardial effusion. Vessels: Moderate atherosclerotic changes in the aorta and coronary arteries. Mediastinum and wesley: Multiple enlarged lymph nodes are seen measuring up to 23 mm in the right hilum and 10 mm in the left hilum. Chest wall and lower neck: Left axillary nodes measure up to 12 mm. Subcentimeter lymph nodes are see n in the right axilla. Abdomen: For findings below the diaphragm, please refer to CT of the abdomen dated the same. Bones: Degenerative changes in the thoracic spine. IMPRESSION: 1. Lymphadenopathy is seen in the left axilla and right greater than left wesley. Findings are suspici ous for neoplastic process such as lymphoma. 2. Patulous and fluid-filled esophagus, correlation for achalasia is recommended. ACT 112: Positive. There are findings on this exam that require communication between the performing entity and the patient following Patient Test Result Information Act ([place] Act 112) guidelines. Electronically signed by: Rishi Mckeon M.D. 08/05/2023 6:28 PM
[2023-08-05] MEDS ORDERED: GLUCOSE 10 TAB/TUBE PO PRN (18:50)
[2023-08-05] MEDS ORDERED: GLUCAGON FOR INJ 1 MG VIAL SQ PRN (18:50)
[2023-08-05] MEDS ORDERED: DEXTROSE 50% 50 ML SYRINGE IV PRN (18:50)
[2023-08-05] MEDS ORDERED: GLUCOSE 40% GEL 15 GM TUBE PO PRN (18:50)
[2023-08-05] MEDS ORDERED: CARBOHYDRATES FOR HYPOGLYCEMIA PO PRN (18:50)
--- NOTE | 2023-08-05 18:53 | Magnetic Resonance Report ---
MR brain wo/w con CLINICAL HISTORY: Eval for metastasis TECHNIQUE: Multiplanar and multisequence MR images of the brain were obtained prior to and following administration of gadolinium contrast. Comparison: None available at the time of this dictation. FINDINGS: No abnormal restricted diffusion is identified. The white matter is unremarkable. The ventricular sys tem is normal in appearance. No mass or abnormal enhancement is seen. There is no mass effect or midl ine shift. There is no evidence of acute intraparenchymal hemorrhage. No extra axial fluid collection s are seen. The corpus callosum, pituitary gland, and cerebellar tonsils appear grossly unremarkable. Flow voids of the major intracranial arterial vessels are identified. The imaged portions of the para nasal sinuses, mastoid air cells, and orbits are unremarkable. IMPRESSION: No acute abnormality and in particular no evidence of metastatic disease. ACT 112: Negative or not required by law. Electronically signed by: Rishi Mckeon M.D. 08/05/2023 6:51 PM
[2023-08-05] MEDS: SODIUM CHLORIDE 0.9% 1,000 ML IV SCH (19:10)
[2023-08-05 19:55] LABS: Thyroid Stimulating Hormone 9.684 uIu/ml (0.300-4.500)
[2023-08-05 19:57] LABS: T4 Free Thyroxine 1.21 ng/dl (0.61-1.60)
[2023-08-05 20:01] LABS: Ferritin 186.7 ng/ml (8-388)
[2023-08-05] MEDS: ATORVASTATIN 20 MG TAB PO SCH (20:18)
[2023-08-05] MEDS: DOCUSATE SODIUM 100 MG CAP PO SCH (20:19)
[2023-08-05] MEDS: oxyBUTYnin chloride 5 MG TAB PO SCH (20:19)
[2023-08-05 20:31] LABS: Tear Drop Cells 1+
[2023-08-05 21:47] LABS: Folate (Folic Acid),Ser orPlas > 22.30 ng/ml (>5.38)
[2023-08-05 21:48] LABS: Vitamin B12 277 pg/ml (180-914)
[2023-08-05] MEDS: INSULIN ASPART PER UNIT CHARGE SC SCH (21:52)
[2023-08-05] MEDS: LANTUS PER UNIT CHARGE SQ SCH (21:52)
[2023-08-05] MEDS: oxyCODONE HCL IR 5 MG TAB (IMMEDIATE RELEASE) PO PRN (21:58)
--- OUTSIDE RECORDS SUMMARY | 2023-08-05 23:21 | External Medical Summary | Summary of Care ---
Author Name Unknown Organization [facility] Address [address] [facility] [place] [address] Phone [phone] Care Team Providers Care Gas Meter Checker Name Role Phone Héctor Johnson MD Primary Care Provider [phone] Encounter Details Date Type Department Care Team (Late st Contact Info) Description 07/25/2023 Orders Only PATIENT PORTAL DO NOT DELETE THIS DEPT USED BY [place] A[place]ULL[place] [id number] Allergies Active Allergy Reactions Criticality Noted Date Comments Adhesive Tape Rash 04/22/2014 documented as of this encounter (statuses as of 07/25/2023) Medications Medication Sig Dispensed Refills Start Date End Date Status ASPIRIN 81 MG PO TABSIndications:DM type 2, goal A1c below 7 ONE DAILY 30 Tab 5 04/01/2011 Active Cranberry 1000 MG Capsule Start: 01/13/19 9:00:00 EDT, PO, Daily 0 01/13/2019 Active Apple Cider Vinegar 188 MG CAPS Start: 01/13/19 14:02:00 EDT, Apple cider vinegar, PO, bid 0 01/13/2019 Active Lancets (ONETOUCH DELICA PLUS [id number]) MISCIndications:Type 2 diabetes mellitus with hemoglobin A1c goal of less than 8.0% (HCC) Use to check blood sugar up to 3 times per day E11.9 100 Each 11 01/17/2020 Active Pen [place] 32G X 4 MMIndications:Type 2 diabetes mellitus with hemoglobin A1c goal of less than 8.0% (HCC) Use as directed. For use with Tresiba insulin pen. 100 Each 3 02/10/2021 Active Ibuprofen 200 MG Oral Tablet (Motrin) Take 3 Tablets by mouth 2 times a day as needed. In the morning and possibly 400mg mid day if needed. 0 Active Ibuprofen PM 200-38 MG Oral Tablet (Ibuprofen-diphenhyd rAMINE Cit) Take 2 Tablets by mouth at bedtime as needed. 0 Active Ondansetron 4 MG Oral Tablet Disintegrating (Zofran) Place 1 Tablet on tongue as needed. 0 05/15/2021 Active OneTouch Verio In Vitro Strip (Glucose Blood)Indications:Ty pe 2 diabetes mellitus with hemoglobin A1c goal of less than 8.0% (HCC) Test blood sugar 2 to 3 times a day and as needed. E11.9 100 Strip 11 08/19/2021 Active SUMAtriptan Succinate 100 MG Oral TabletIndications:Mi graine with aura ONE AT ONSET OF HEADACHE; MAY REPEAT DOSE IN TWO HOURS IF NEEDED; NO MORE THAN 2 PILLS/24 HRS OR 4 PILLS/WEEK 6 Tablet 2 10/23/2022 Active Additional Information Patient not taking.Reported on 04/18/2023 Levothyroxine Sodium 150 MCG Oral Tablet (Levoxyl)Indications :Acquired hypothyroidism TAKE 1 TABLET BY MOUTH EVERY DAY AT LEAST 30 MIN BEFORE BREAKFAST OR OTHER MEDICATION 90 Tablet 3 02/04/2023 Active Lisinopril 10 MG Oral Tablet (Prinivil)Indication s:HTN, goal below 130/80 TAKE 1 TABLET BY MOUTH EVERY DAY IN THE MORNING 90 Tablet 3 02/18/2023 Active Oxybutynin Chloride 5 MG Oral Tablet (Ditropan)Indication s:Urinary urgency TAKE 1 TABLET BY MOUTH EVERY DAY IN THE MORNING AND BEFORE BEDTIME 180 Tablet 3 02/21/2023 Active Jardiance 25 MG Oral Tablet (Empagliflozin)Indic ations:Type 2 diabetes mellitus with hemoglobin A1c goal of less than 8.0% (HCC) TAKE 1 TABLET BY MOUTH EVERY DAY IN THE MORNING 90 Tablet 1 02/20/2023 Active metFORMIN HCl 1000 MG Oral Tablet (Glucophage)Indicati ons:Dyslipidemia, goal LDL below 100 TAKE 1 TABLET BY MOUTH TWICE A DAY 180 Tablet 3 02/21/2023 Active Atorvastatin Calcium 20 MG Oral Tablet (Lipitor)Indications :Dyslipidemia, goal LDL below 100 TAKE 1 TABLET BY MOUTH EVERY DAY 90 Tablet 2 02/23/2023 Active Citalopram Hydrobromide 20 MG Oral Tablet (CeleXA)Indications: Depression, unspecified depression type TAKE 1 TABLET BY MOUTH EVERY DAY IN THE MORNING 90 Tablet 3 02/23/2023 Active Naloxone HCl 4 MG/0.1ML Nasal Liquid (Narcan Nasal) Administer 1 spray into 1 nostril for suspected opioid overdose. Seek immediate medical attention. [email or web address] 1 Each 3 03/01/2023 Active Additional Information Patient not taking.Reported on 04/18/2023 Alendronate Sodium 70 MG Oral Tablet (Fosamax) TAKE 1 TAB BY MOUTH ONCE A WEEK W/ 8OZ. WATER 30MIN BEFORE 1ST MEAL OF DAY. REMAIN UPRIGHT X30MIN 12 Tablet 3 03/21/2023 Active tiZANidine HCl 4 MG Oral CapsuleIndications:S prain lumbar region, initial encounter,Acute left-sided low back pain with left-sided sciatica Take 1 Capsule by mouth 2 times a day as needed for Muscle spasms. hold for sedation 28 Capsule 1 03/31/2023 Active Tresiba FlexTouch 100 UNIT/ML Subcutaneous Solution Pen-injector (Insulin Degludec)Indications :Type 2 diabetes mellitus with hemoglobin A1c goal of less than 8.0% ([facility]) 38 units 0 04/18/2023 Active Ozempic (1 MG/DOSE) 4 MG/3ML Subcutaneous Solution Pen-injector (Semaglutide (1 MG/DOSE))Indications :Dyslipidemia, goal LDL below 100 Inject 1 mg under the skin once a week. 6 mL 1 05/30/2023 Active Omeprazole 40 MG Oral Capsule Delayed Release (PriLOSEC)Indication s:Gastroesophageal reflux disease without esophagitis TAKE 1 CAPSULE BY MOUTH EVERY DAY 1 HOUR BEFORE THE FIRST MEAL OF THE DAY 90 Capsule 1 07/23/2023 Active documented as of this encounter (statuses as of 07/25/2023) Active Problems Problem Noted Date Diagnosed Date Chronic bilateral thoracic back pain 07/26/2022 Encounter for examination fo r normal comparison and control in clinical research program 01/03/2020 Overview: [employer]: A Randomized Controlled Trial (Project # [id number]). The [employer] program provides food-insecure diabetics with healthy food for their entire household (2 meals/ day X 5 days/week). The program also provides education on food preparation, healthy living, and diabetes self management. The research measures the effects of the program on patient health and wellbeing. Subject will begin the FFF program December 2019. Contact Information: Shipyard Painting Supervisor: Dr. Palmer Anders ([phone]) CRC: Glory Arteaga ([phone]) RA: Chiara Laura ([phone]) Diagnosis changed due to Research Module. Go to Snapshot for study details. Gastroesophageal reflux disease without esophagi tis 02/12/2016 HTN, goal below 130/80 02/12/2016 Type 2 diabetes mellitus wit h hemoglobin A1c goal of less than 8.0% 07/23/2013 Overview: ICD-10 update of inactive term FELICITY (obstructive sleep apnea) 11/21/2012 Overview: AHI 11.5 on 11/09/12 AHP 12/29/12 auto cpap set at 10 cm H20 Depression 11/02/2012 Migraine with aura 07/06/2011 Abnormal results of liver function studies 06/08 Overview: FATTY LIVER BY PREVIOUS U/S, CT Localized osteoarthrosis not specified whether primary or secondary, unspecified site 06/08/2010 Overview: KNEES Other specified disorder of gallbladder 02/14/20 08 Overview: SLUDGE ON U/S, NORMAL HIDA 2008 Varicose vein of leg 12/04/2007 Dyslipidemia, goal LDL below 100 01/17/2006 Calculus of kidney 02/15/2005 Overview: NON OBSTRUCTIVE CALCULUS RIGHT KIDNEY 2008 ADVANCE DIRECTIVE INFORMATION 11/09/2004 Acquired hypothyroidism 07/18/2003 documented as of this encounter (statuses as of 07/25/2023) Resolved Problems Problem Noted Date Diagnosed Date Resolved Date Recurrent major depressive disorder 11/09/2021 05/31/2023 Controlled substance agreement signed 04/01/2016 11/23/2017 HTN, goal below 140/90 01/03/201202/11 GERD (gastroesophageal reflux disease) 10/04/2011 02/12/2016 DM type 2, not at goal 04/21/200912/24 Tension headache 03/10/2009 06/08/2010 Other screening mammogram 04/08/2008 Overview: 04/01/2008--NORMAL Mammogram--Dr. Wilson ordered LIVER DISORDER NOS-fatty liver 02/14/2008 06/08/2010 Overview: 02/23/2008-NML HIDA- Sep08- US--Marked increased echogenicity liver finding consistent diffuse hepatocellular process with focal areas of decreased echogenicity. Although these may represent areas of fatty sparing for further evaluation CT scan is recommended. 2.Question of sludge within the gallbladder. 3. Nonobstructive right renal calculus. - neg H pylori, nmlamylase/lipase, LFT ex ast/alt 53/56 Headache 12/04/2007 06/08/2010 Overview: 02/09/2008_ better with PT. 12/22/2007_ MRI -nml--Dr.KS mccrary-Naprosyn try, not to be used w/Ibuprofen, some Midrin, if she can afford it and Vicodin --noninv cardiac testing ,if above does not help as may need to use Imitrex 12/04/2007_ C/o Diplopia--get MRI, refer neurology.--C spine xray --nml( has sig spasm paracervical muscles, refer PT) ICD-10 update of inactive term Seborrhea capitis 12/04/2007 06/08/2010 INFORMATION 06/20/2007 06/08/2010 Overview: 12/04/2007: CPE, 01/31/2009 06/20/2007:TE:pt canceled appt sleep clinic and refused to pool. Major depressive disorder, s rosalia episode, mild 04/18/2007 06/08/2010 Overview: 12/04/2007: off since ?. On prozac, was inc to 30 mg [id number].Still.,wean 04/18/2007 Screening for malignant neoplasm of cervix 01/16/2007 06/08/2010 Overview: [facility]--[facility][id number]--[place] , had post Fu and pap . Viral warts 01/16/2007 06/08/2010 Overview: ICD-10 update of inactive term NEPHRITIS NOS IN OTH DIS-dm 03/31/2006 06/08/2010 Overview: :A neg MICROALBUMIN 03/29/06 132* ,start lisimopril. 07: 30, nml bmp, alt, 11 MICROALBUMIN 01/14/06 62* ,will RPT in 4 wks.- 33. DIABETES-ANTEPARTUM 11/02/2005 06/08/19 11 POLYHYDRAMNIOS-ANTEPART 10/06/200505/30 Type 2 diabetes mellitus wit h hemoglobin A1c goal of less than 7.0% 03/17/2005 07/23/2013 JOINT PAIN-L-LEG(aka KNEE) 07/20/2003 0 06/08/2010 LIPOMA SKIN NEC 07/20/2003 06/08/2010 Obesity 07/18/2003 12/07/2018 documented as of this encounter (statuses as of 07/25/2023) Immunizations Name Administration Dates Next Due COVID-19 mRNA, LNP-s, No Pre serve, 2-Dose Series ([employer]) 05/01/2021 Hepatitis B, 20+ yrs 11/28/1995,07/28/1994,05/30 PPD 07/12/2016, 7,02/18/2009,2008,03/31/2006 Pneumococcal Conjugate Vacc, 13 Valent (Prevnar) 03/04/2015 Seasonal Influenza, PF, 6 M & above, IM , (FluLaval or Fluzone) 03/31/2023,03/16/2021,03/13/2020,2018,02/27/2018,03/25/2017 Seasonal Influenza, Quadriva lent, No Preserve, IM 03/25/2022 Seasonal Influenza, Split, I IV3, With Preserve, Inj 03/25/2016,02/10/2014,03/28/2013,2011,03/12/2011,02/16/2010,02/18/2009,1 ,04/18/2007,04/12/2006 TDAP (age 11 and older)(Adacel) 05/04/2007 documented as of this encounter Social History Tobacco Use Types Packs/Day Years Used Date Smoking Tobacco: Former Cigarettes 0.5 15 0 05/30/1982 - 05/30/1997 Smokeless Tobacco: Never Alcohol Use Standard Drinks/Week Comments Yes 0 (1 standard drink = 0.6 oz pur e alcohol) Once every few months PHQ-2 Answer Date Recorded PHQ Adult Total Score 0 07/26/2022 Hunger Vital Sign Answer Date Recorded Within the past 12 months, y ou worried that your food would run out before you got the money to buy more. Never true 07/26/19 23 Within the past 12 months, t he food you bought just didn't last and you didn't have money to get more. Never true 07/26/2022 Sex and Gender Information Value Date Recorded Sex Assigned at Female 01/17/2019 12:40 PM EDT Gender Identity Female 01/17/2019 12:40 PM EDT Sexual Orientation Straight 01/17/2019 12 :40 PM EDT Job Start Date Occupation Industry Not on file Not on file Not on file documented as of this encounter Plan of Treatment Upcoming Encounters Date Type Department Care Team (Late st Contact Info) Description 02/01/2024 10:00 AM EDT Office Visit [facility] [address] [phone] Héctor Johnson MD [address] [address] Scheduled Procedures Name Priority Associated Diagnoses Date/Ti me COLONOSCOPY FLEXIBLE PROXIMA L DIAGNOSTIC Recall Family history of colon cancer Health Maintenance Due Date Last Done Comments HPV/Co-Test 1997 DTaP,Tdap,and Td Vaccines (2 - Td or Tdap) 05/04/2017 05/04/2007 Zoster Vaccines (1 of 2) 2017 COVID-19 Vaccine (2 - 2022- season) 2023 05/01/2021 Cervical Cancer Screening 03/10/2023 Pap Smear 03/10/2023 03/10/2020, 02/27, 02/10/2016, Additional history exists COLONOSCOPY-ANNUAL AGES 18-100 07/09/2023 07/09/2022, 07/09/2022 Depression Screening 07/26/2023 07/26/2022 Diabetic Foot Exam 07/26/2023 07/26/2022, 1 , 12/17/2019, Additional history exists HbA1c 08/03/2023 02/02/2023, 07/01, 02/22/2022, Additional history exists Mammogram 08/26/2023 08/25/2022, 07/29, 11/28/2017, Additional history exists Albumin/Creatinine Ratio 02/03/2024 023, 02/22/2022, 11/29/2018, Additional history exists B-12 02/03/2024 02/02/2023, 01/29, 01/12/2021, Additional history exists TSH 02/03/2024 02/02/2023, 01/29, 01/12/2021, Additional history exists GFR 03/24/2024 03/24/2023, 10/07/2022, 02/02/2023, Additional history exists Diabetic Eye Exam 06/27/2024 06/27/2023, , 10/04/2018, Additional history exists PAP SMEAR-EVERY 5 YRS,AGES 21-100 03/10/2025 03/10/2020, 03/10/2020, 02/10/2016, Additional history exists Lipid Panel 02/22/2027 02/22/2022, 03/0 05/2020, 03/10/2020, Additional history exists Pneumococcal Vaccine: Pediatrics (0 to 5 Years) and At-Risk Patients (6 to 64 Years) (3 of 3 - PPSV23 or PCV20) 2032 03/04/2015, 03/17/2005 Hepatitis B Completed 11/28/1995, 05/1994, 05/30/1994 Cologuard Discontinued 12/15/2017, 12/08/2017 Colonoscopy Discontinued 07/09/2022, 07/09/2022 Colorectal Cancer Screening Discontinued Influenza Vaccine (FLU shot) Completed 03/31/2023, 03/25/2022, 03/16/2021, Additional history exists Fecal Occult Blood Test Discontinued GARDASIL-HPV IMMUNIZATION SERIES Aged Out No longer eligible based on patient's age to complete this topic MENINGOCOCCAL (MENACTRA/MENVEO) Aged Out No longer eligible based on patient's age to complete this topic Sigmoidoscopy Discontinued documented as of this encounter Medical Devices Not on filedocumented as of this encounter Advance Directives Documents on File Type Date Recorded Patient Varnish Mixer Expl anation Advance Directives and Living Will 11/02/2005 Power of Collection Advisor 11/02/2005 Care Teams Gas Meter Checker Relationship Specialty Start Date End Date Héctor Johnson MD [address] [address] PCP - General Family Medicine 05/20/21 documented as of this encounter
--- OUTSIDE RECORDS SUMMARY | 2023-08-05 23:21 | External Medical Summary | Summary of Care ---
Author Name Unknown Organization [facility] Address [address] [place] [address] Phone [phone] Care Team Providers Care Space Control Supervisor Name Role Phone Louie Kaye MD Primary Care Provider [phone] Reason for Referral * Evaluate & Treat - Unlimited Visits (Within 10 days (routine)) - Pending Review Specialty Diagnoses / Procedures Referred By Rachel urena Referred To Contact Orthopaedic Surgery / Orthopedics Diagnoses Hip pain, right Louie Kaye MD [address] [address] Referral ID Status Reason Start Date Expiration Date Visits Requested Visits Authorized [id number] Pending Review Specialty Services Required 07/14/[phone] Question Answer Referral Priority Within 10 days (routine) Where should this appointment be scheduled? [facility] What body part is the patient being seen for? Hip What condition is the patient being seen for? Arthritis including related infection Reason for Visit * Reason Onset Date Comments Referral 07/13/2023 Encounter Details Date Type Department Care Team (Late Contact Info) Description 07/13/2023 Telephone Sharmaine Goldstein [address] [phone] Louie Kaye MD [address] [address] Referral Allergies Active Allergy Reactions Criticality Noted Date Comments Adhesive Tape Rash 04/22/2014 documented as of this encounter (statuses as of 07/14/2023) Medications Medication Sig Dispensed Refills Start Date End Date Status ASPIRIN 81 MG PO TABSIndications:DM type 2, goal A1c below 7 ONE DAILY 30 Tab 5 04/01/2011 Active Cranberry 1000 MG Capsule Start: 01/13/19 9:00:00 EDT, PO, Daily 0 01/13/2019 Active Apple Cider Vinegar 188 MG CAPS Start: 01/13/19 14:02:00 EDT, Apple cider vinegar, PO, bid 0 01/13/2019 Active Lancets (ONETOUCH DELICA PLUS [id number]) MISCIndications:Type 2 diabetes mellitus with hemoglobin A1c goal of less than 8.0% (HCC) Use to check blood sugar up to 3 times per day E11.9 100 Each 11 01/17/2020 Active Pen [place] 32G X 4 MMIndications:Type 2 diabetes mellitus [...] Additional Information Patient not taking.Reported on 04/18/2023 Omeprazole 40 MG Oral Capsule Delayed Release (PriLOSEC)Indication s:Gastroesophageal reflux disease without esophagitis TAKE 1 CAPSULE BY MOUTH DAILY 1 HOUR BEFORE THE FIRST MEAL OF THE DAY 90 Capsule 1 01/21/2023 Active Levothyroxine Sodium 150 MCG Oral Tablet (Levoxyl)Indications [...] suspected opioid overdose. Seek immediate medical attention. [email or web address]://[email or web address]/[email or web address]?v=[email or web address] 1 Each 3 03/01/2023 Active Additional Information [...] hemoglobin A1c goal of less than 8.0% ([facility]) 38 units 0 04/18/2023 Active Ozempic (1 MG/DOSE) 4 MG/3ML Subcutaneous Solution Pen-injector (Semaglutide (1 MG/DOSE))Indications :Dyslipidemia, goal LDL below 100 Inject 1 mg under the skin once a week. 6 mL 1 05/30/2023 Active documented as of this encounter (statuses as of 07/14/2023) Active Problems Problem Noted Date Diagnosed Date Chronic bilateral thoracic back pain 07/26/2022 Encounter for examination fo r normal comparison and control in clinical research program 01/03/2020 Overview: [employer]: A Randomized Controlled Trial (Project # [id number]). The [employer] program provides food-insecure diabetics with healthy food for their entire household (2 meals/ day X 5 days/week). The program also provides education on food preparation, healthy living, and diabetes self management. The research measures the effects of the program on patient health and wellbeing. Subject will begin the FFF program December 2019. Contact Information: General Milling Superintendent: Dr. Palmer Anders ([phone]) CRC: Glory Arteaga ([phone]) RA: Chiara Laura ([phone]) Diagnosis changed due to Research Module. Go [...] KNEES Other specified disorder of gallbladder 02/14/20 Overview: SLUDGE ON U/S, NORMAL HIDA 2008 Varicose vein of leg 12/04/2007 Dyslipidemia, goal LDL below 100 01/17/2006 Calculus of kidney 02/15/2005 Overview: NON OBSTRUCTIVE CALCULUS RIGHT KIDNEY 2008 ADVANCE DIRECTIVE INFORMATION 11/09/2004 Acquired hypothyroidism 07/18/2003 documented as of this encounter (statuses as of 07/14/2023) Resolved Problems Problem Noted Date Diagnosed Date [...] the gallbladder. 3. Nonobstructive right renal calculus. Sep08- neg H pylori, nmlamylase/lipase, LFT ex ast/alt 53/56 Headache 12/04/2007 06/08/2010 Overview: 02/09/2008_ better with PT. 12/22/2007_ MRI -nml--Dr.KS jonesNaprosbolivar try, not to be used w/Ibuprofen, some [...] On prozac, was inc to 30 mg [id number].Still.,wean 04/18/2007 Screening for malignant neoplasm of cervix 01/16/2007 06/08/2010 Overview: PAP--?[id number]--[place] [place] , had post Fu and pap . Viral warts 01/16/2007 06/08/2010 Overview: ICD-10 update of inactive term NEPHRITIS NOS IN H DIS-dm 03/31/2006 06/08/2010 Overview: :A neg MICROALBUMIN 03/29/06 132* ,start lisimopril. 09-26-07: 30, nml bmp, alt, 11 MICROALBUMIN 01/14/06 62* ,will RPT in 4 wks.- 33. DIABETES-ANTEPARTUM 11/02/2005 06/08/19 11 POLYHYDRAMNIOS-ANTEPART 10/06/200505/30 Type 2 diabetes mellitus wit h hemoglobin A1c goal of less than 7.0% 03/17/2005 07/23/2013 JOINT PAIN-L-LEG(aka KNEE) 07/20/2003 0 06/08/2010 LIPOMA SKIN NEC 07/20/2003 06/08/2010 Obesity 07/18/2003 12/07/2018 documented as of this encounter (statuses as of 07/14/2023) Immunizations Name Administration Dates Next Due COVID-19 mRNA, LNP-s, No Pre serve, 2-Dose Series ([employer]) 05/01/2021 Hepatitis B, 20+ yrs 11/28/1995,07/28/1994,05/30 PPD 07/12/2016, 7,02/18/2009,01/31,03/31/2006,04/13/2005 Pneumococcal Conjugate Vacc, 13 Valent (Prevnar) 03/04/2015 Pneumococcal Polysaccharide PPV23 (Pneumovax) 03/17/2005 Seasonal Influenza, PF, 6 M & above, IM , (FluLaval or Fluzone) 03/31/2023,03/16/2021,03/13/2020,03/26,02/27/2018,03/25/2017 Seasonal Influenza, Quadriva lent, No Preserve, IM 03/25/2022 Seasonal Influenza, Split, I IV3, With Preserve, Inj 03/25/2016,02/10/2014,03/28/2013,02/27,03/12/2011,02/16/2010,02/18/2009 ,03/20/2008,04/18/2007,04/12/2006,02/27 TDAP (age 11 and older)(Adacel) 05/04/2007 documented as of this encounter Social History Tobacco Use Types Packs/Day Years Used Date Smoking Tobacco: Former Cigarettes 0.5 15 Q uit: 05/30/1997 Smokeless Tobacco: Never Alcohol Use Standard [...] on file documented as of this encounter Miscellaneous Notes * Telephone Encounter - Maria De Jesus Gómez OSA - 07/14/2023 11:39 AM EST Corrected order faxed. Pt notified. * Addendum Note - Louie Kaye MD - 07/14/2023 11:37 AM ESTAddended by: LOUIE KAYE on: 07/14/2023 11:37 AM Modules accepted: Orders * Telephone Encounter - Maria De Jesus Gómez OSA - 07/14/2023 9:05 AM EST Order requested was for right hip but was put in as left hip. Please correct and resubmit order. [facility] will not schedule her until it is corrected. Thanks! * Telephone Encounter - Candie Jerome OSA - 07/13/2023 10:42 AM EST Has the patient been seen for this problem? (Y/N)?: no If No, an appt needs to be scheduled before a referral will be placed (exception: proceed with referral request if referral request is for a yearly routine appointment with speciality) Patient Name: Miguel Manuel Patient Primary care provider: Louie Kaye MD Does this need to be an insurance referral (Y/N)?: yes If Yes, does the insurance referral need to be placed into the [employer] system? Name of preferred specialist: Type of specialist: Orthopedics [facility] [place] [facility] Phone #: Specialist's Fax #: Reason for visit: Right Hip Date of visit: needs an appt documented in this encounter Plan of Treatment Upcoming Encounters Date Type Department Care Team (Late st Contact Info) Description 02/01/2024 10:00 AM EDT [facility] [address] [phone] Louie Kaye MD [address] [address] Scheduled Procedures Name Priority Associated Diagnoses Date/Ti me COLONOSCOPY FLEXIBLE PROXIMA L DIAGNOSTIC Recall Family history of colon cancer Scheduled Referrals Name Type Priority Associated Diagnoses Order Schedule ORTHOPAEDICS REFERRAL OP Referral Within 10 days (routine) Hip pain, right Ordered: 07/14/2023 Health Maintenance Due Date Last Done Comments HPV/Co-Test 1997 DTaP,Tdap,and Td Vaccines (2 - Td or Tdap) 05/04/2017 05/04/2007 Zoster Vaccines (1 of 2) 2017 COVID-19 Vaccine (2 - season) 2023 05/01/2021 Cervical Cancer Screening 03/10/2023 [...] 01/12/2021, Additional history exists GFR 03/24/2024 03/24/2023, 1007/2022, 02/02/2023, Additional history exists Diabetic Eye Exam 06/27/2024 06/27/2023, , 10/04/2018, Additional history exists PAP SMEAR-EVERY 5 YRS,AGES 21-100 03/10/2025 03/10/2020, 03/10/2020, 02/10/2016, Additional history exists Lipid Panel 02/22/2027 02/22/2022, 030 05/2020, 03/10/2020, Additional history exists Pneumococcal Vaccine: Pediatrics (0 to 5 Years) and At-Risk Patients (6 to 64 Years) (3 - PPSV23 or PCV20) 2032 03/04/2015, 03/17/2005 [...] Not on filedocumented as of this encounter Visit Diagnoses Diagnosis Hip pain, right- Primary Pain in joint, pelvic region and thigh documented in this encounter Advance Directives Documents on File Type Date Recorded Patient Operator Technician Expl anation Advance Directives and Living Will 11/02/2005 Power of Vamp Creaser 11/02/2005 Care Teams Space Control Supervisor Relationship Specialty Start Date End Date Louie Kaye MD [address] [address] PCP - General Family Medicine 05/20/21 documented as of this encounter
--- OUTSIDE RECORDS SUMMARY | 2023-08-05 23:21 | External Medical Summary | Summary of Care ---
Author Name Unknown Organization [facility] Address [address] [address] Phone [phone] Care Team Providers Care Manager Student Services Name Role Phone Héctor Johnson MD Primary Care Provider +1 [phone] Reason for Visit * Reason Onset Date Comments Referral 07/13/2023 Encounter Details Date Type Department Care Team (Late st Contact Info) Description 07/13/2023 Telephone [facility] [address] [address] Héctor Johnson MD [address] [place] [address] Referral Allergies Active Allergy Reactions Criticality [...] 0 01/13/2019 Active Lancets (ONETOUCH DELICA PLUS [id number]) MISCIndications:Type 2 diabetes mellitus with hemoglobin A1c goal of less than 8.0% (HCC) Use to check blood sugar up to 3 times per day E11.9 100 Each 11 01/17/2020 Active Pen Brilliant 32G X 4 MMIndications:Type 2 diabetes mellitus [...] suspected opioid overdose. Seek immediate medical attention. [email or web address] [email or web address] 1 Each 3 03/01/2023 Active Additional Information [...] A1c goal of less than 8.0% (HCC) 38 units 0 04/18/2023 Active Ozempic (1 [...] clinical research program 01/03/2020 Overview: Fresh [employer]: A Randomized Controlled Trial (Project # [id number]). The Fresh Food Farmacy program provides food-insecure diabetics with healthy food for their entire household (2 meals/ day X 5 days/week). The program also provides education on food preparation, healthy living, and diabetes self management. The research measures the effects of the program on patient health and wellbeing. Subject will begin the FFF program December 2019. Contact Information: Photographic Technician: Dr. Palmer Anders ([phone]) CRC: Glory Arteaga ([phone]) RA: Chiara Laura ([phone]) Diagnosis changed due to Research Module. Go [...] 02/09/2008_ better with PT. 12/22/2007_ MRI -nml--Dr.KS mccrary-Naprosbolivar try, not to be used w/Ibuprofen, some [...] On prozac, was inc to 30 mg [id number].Still.,wean 04/18/2007 Screening for malignant neoplasm of cervix 01/16/2007 06/08/2010 Overview: PAP--?jfv51--IZ.Grill.----is satish DrGrill-- Del , had post Fu and [...] mRNA, LNP-s, No Pre serve, 2-Dose Series ([facility]) 05/01/2021 Hepatitis B, 20+ yrs 11/28/1995,07/28/1994,05/30 PPD [...] * Telephone Encounter - Maria De Jesus Gómez, FELICITY - 07/14/2023 9:05 AM EST Order requested [...] Name: Miguel Manuel Patient Primary care provider: Héctor Johnson MD Does this need to be an insurance referral (Y/N)?: yes If Yes, does the insurance referral need to be placed into the [employer] system? Name of preferred specialist: Type of specialist: Orthopedics [facility] Phone #: Specialist's Fax #: Reason for visit: Right Hip Date of visit: needs an appt documented in this encounter Plan of Treatment Upcoming Encounters Date Type Department Care Team (Late st Contact Info) Description 02/01/2024 10:00 AM EDT Office Visit [facility] [address] [address] Héctor Johnson MD [address] [address] Scheduled Procedures Name Priority Associated Diagnoses Date/Ti [...] 01/12/2021, Additional history exists GFR 03/24/2024 03/24/2023, 100 07/2022, 02/02/2023, Additional history exists Diabetic Eye Exam [...] Documents on File Type Date Recorded 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
--- OUTSIDE RECORDS SUMMARY | 2023-08-05 23:21 | External Medical Summary | Summary of Care ---
Author Name Unknown Organization [facility] Address [address] [place] [address] Phone [phone] Care Team Providers Care Community Theater Actor Name Role Phone Louie Kaye MD Primary Care Provider [phone] [phone] Reason for Visit * Reason Comments eRx-Medication Refill Encounter Details Date Type Department Care Team (Late st Contact Info) Description 07/23/2023 Refill [facility] [address] [facility] [address] [place] [address] Louie Kaye MD 21 [facility] [address] Encounter for long-term (current) use of medications*; Gastroesophageal reflux disease without esophagitis Allergies Active Allergy Reactions Criticality Noted Date Comments Adhesive Tape Rash 04/22/2014 documented as of this encounter (statuses as of 07/23/2023) Medications Medication Sig Dispensed Refills Start Date End Date Status ASPIRIN 81 MG PO TABSIndications:DM type 2, goal A1c below 7 ONE DAILY 30 Tab 5 1 Active Cranberry 1000 MG Capsule Start: 01/13/19 9:00:00 EDT, PO, Daily 0 9 Active Apple Cider Vinegar 188 MG CAPS Start: 01/13/19 14:02:00 EDT, Apple cider vinegar, PO, bid 0 9 Active Lancets (ONETOUCH DELICA PLUS [id number]) MISCIndications:Typ e 2 diabetes mellitus with hemoglobin A1c goal of less than 8.0% (HCC) Use to check blood sugar up to 3 times per day E11.9 100 Each 11 0 Active Pen [place] 32G X 4 MMIndications:Type 2 diabetes mellitus with hemoglobin A1c goal of less than 8.0% (HCC) Use as directed. For use with Tresiba insulin pen. 100 Each 3 1 Active Ibuprofen 200 MG Oral Tablet (Motrin) Take 3 Tablets by mouth 2 times a day as needed. In the morning and possibly 400mg mid day if needed. 0 Active Ibuprofen PM 200-38 MG Oral Tablet (Ibuprofen-diphenhy drAMINE Cit) Take 2 Tablets by mouth at bedtime as needed. 0 Active Ondansetron 4 MG Oral Tablet Disintegrating (Zofran) Place 1 Tablet on tongue as needed. 0 1 Active Clearleap Verio In Vitro Strip (Glucose Blood)Indications:T ype 2 diabetes mellitus with hemoglobin A1c goal of less than 8.0% (HCC) Test blood sugar 2 to 3 times a day and as needed. E11.9 100 Strip 11 2 Active SUMAtriptan Succinate 100 MG Oral TabletIndications:M igraine with aura ONE AT ONSET OF HEADACHE; MAY REPEAT DOSE IN TWO HOURS IF NEEDED; NO MORE THAN 2 PILLS/24 HRS OR 4 PILLS/WEEK 6 Tablet 2 3 Active Additional Information Patient not taking.Reported on 04/18/2023 Levothyroxine Sodium 150 MCG Oral Tablet (Levoxyl)Indication s:Acquired hypothyroidism TAKE 1 TABLET BY MOUTH EVERY DAY AT LEAST 30 MIN BEFORE BREAKFAST OR OTHER MEDICATION 90 Tablet 3 3 Active Lisinopril 10 MG Oral Tablet (Prinivil)Indicatio ns:HTN, goal below 130/80 TAKE 1 TABLET BY MOUTH EVERY DAY IN THE MORNING 90 Tablet 3 3 Active Oxybutynin Chloride 5 MG Oral Tablet (Ditropan)Indicatio ns:Urinary urgency TAKE 1 TABLET BY MOUTH EVERY DAY IN THE MORNING AND BEFORE BEDTIME 180 Tablet 3 3 Active Jardiance 25 MG Oral Tablet (Empagliflozin)Ilda cations:Type 2 diabetes mellitus with hemoglobin A1c goal of less than 8.0% (HCC) TAKE 1 TABLET BY MOUTH EVERY DAY IN THE MORNING 90 Tablet 1 3 Active metFORMIN HCl 1000 MG Oral Tablet (Glucophage)Indicat ions:Dyslipidemia, goal LDL below 100 TAKE 1 TABLET BY MOUTH TWICE A DAY 180 Tablet 3 3 Active Atorvastatin Calcium 20 MG Oral Tablet (Lipitor)Indication s:Dyslipidemia, goal LDL below 100 TAKE 1 TABLET BY MOUTH EVERY DAY 90 Tablet 2 3 Active Citalopram Hydrobromide 20 MG Oral Tablet (CeleXA)Indications :Depression, unspecified depression type TAKE 1 TABLET BY MOUTH EVERY DAY IN THE MORNING 90 Tablet 3 3 Active Naloxone HCl 4 MG/0.1ML Nasal Liquid (Narcan Nasal) Administer 1 spray into 1 nostril for suspected opioid overdose. Seek immediate medical attention. https://www.bizsol.com/watch? [email or web address] 1 Each 3 3 Active Additional Information Patient not taking.Reported on 04/18/2023 Alendronate Sodium 70 MG Oral Tablet (Fosamax) TAKE 1 TAB BY MOUTH ONCE A WEEK W/ 8OZ. WATER 30MIN BEFORE 1ST MEAL OF DAY. REMAIN UPRIGHT X30MIN 12 Tablet 3 3 Active tiZANidine HCl 4 MG Oral CapsuleIndications: Sprain lumbar region, initial encounter,Acute left-sided low back pain with left-sided sciatica Take 1 Capsule by mouth 2 times a day as needed for Muscle spasms. hold for sedation 28 Capsule 1 3 Active Tresiba FlexTouch 100 UNIT/ML Subcutaneous Solution Pen-injector (Insulin Degludec)Indication s:Type 2 diabetes mellitus with hemoglobin A1c goal of less than 8.0% (HCC) 38 units 0 3 Active Ozempic (1 MG/DOSE) 4 MG/3ML Subcutaneous Solution Pen-injector (Semaglutide (1 MG/DOSE))Indication s:Dyslipidemia, goal LDL below 100 Inject 1 mg under the skin once a week. 6 mL 1 4 Active Omeprazole 40 MG Oral Capsule Delayed Release (PriLOSEC)Indicatio ns:Gastroesophageal reflux disease without esophagitis TAKE 1 CAPSULE BY MOUTH EVERY DAY 1 HOUR BEFORE THE FIRST MEAL OF THE DAY 90 Capsule 1 4 Active Omeprazole 40 MG Oral Capsule Delayed Release (PriLOSEC)Indicatio ns:Gastroesophageal reflux disease without esophagitis TAKE 1 CAPSULE BY MOUTH DAILY 1 HOUR BEFORE THE FIRST MEAL OF THE DAY 90 Capsule 1 3 07/23/19 24 Discontinued documented as of this encounter (statuses as of 07/23/2023) Active Problems Problem Noted Date Diagnosed Date Chronic bilateral thoracic back pain 07/26/2022 Encounter for examination fo r normal comparison and control in clinical research program 01/03/2020 Overview: [employer]: A Randomized Controlled Trial (Project # [id number]). The [employer]Before [employer] ID90T program provides food-insecure diabetics with healthy food for their entire household (2 meals/ day X 5 days/week). The program also provides education on food preparation, healthy living, and diabetes self management. The research measures the effects of the program on patient health and wellbeing. Subject will begin the FFF program December 2019. Contact Information: Glass Products Inspector: Dr. Palmer Anders ([phone]) CRC: Glory Arteaga ([phone]) RA: Chiara Laura ([phone]) Diagnosis changed due to Research Module. Go [...] Overview: KNEES Other specified disorder of gallbladder 09/17/20 08 Overview: SLUDGE ON U/S, NORMAL HIDA 2007 Varicose vein of leg 12/04/2007 Dyslipidemia, goal LDL below 100 01/17/2006 Calculus of kidney 02/15/2005 Overview: NON OBSTRUCTIVE CALCULUS RIGHT KIDNEY 2008 ADVANCE DIRECTIVE INFORMATION 11/09/2004 Acquired hypothyroidism 07/18/2003 documented as of this encounter (statuses as of 07/23/2023) Resolved Problems Problem Noted Date Diagnosed Date Resolved Date Recurrent major depressive disorder 11/09/2021 05/31/2023 Controlled substance agreement signed 04/01/2016 11/23/2017 HTN, goal below 140/90 01/03/201202/11 GERD (gastroesophageal reflux disease) 10/04/2011 02/12/2016 DM type 2, not at goal 04/21/200912/24 Tension headache 03/10/2009 06/08/2010 Other screening mammogram 04/08/2008 Overview: 04/01/2008--NORMAL Mammogram--Dr. Wilson ordered LIVER DISORDER NOS-fatty liver 02/14/2008 06/08/2010 Overview: 02/23/2008-NML HIDA- - US--Marked increased echogenicity liver finding consistent diffuse [...] On prozac, was inc to 30 mg .Still.,wean 04/18/2007 Screening for malignant neoplasm of cervix 01/16/2007 06/08/2010 Overview: PAP[facility]?myz51--[facility] , had post Fu and pap [...] as of this encounter (statuses as of 07/23/2023) Immunizations Name Administration Dates Next Due COVID-19 mRNA, LNP-s, No Pre serve, 2-Dose Series ([employer]) 05/01/2021 Hepatitis B, 20+ yrs 11/28/1995,07/28/1994,05/30 PPD [...] encounter Miscellaneous Notes * Telephone Encounter - Nany Martinez [facility] - 07/23/2023 7:43 PM ESTSigned Prescriptions: Disp Refills Omeprazole 40 MG Oral Capsule Delayed Rele*90 Cap*1 Sig: TAKE 1 CAPSULE BY MOUTH EVERY DAY 1 HOUR BEFORE THE FIRST MEAL OF THE DAYAuthorizing Provider: LOUIE KAYE User: NANY MARTINEZ * Telephone Encounter - Nany Martinez [facility] - 07/23/2023 7:42 PM EST Per refill protocol patient needs magnesium lab on file within the past 2 years while using PPIs. Lab work ordered. Patient may obtain with next routine labs. Thanks, Nany Martinez, PharmD Clinical Pharmacist [facility] ([facility] - Former[facility] Telepharm[facility]) [phone] 07/23/2023 7:42 PM documented in this encounter Plan of Treatment Upcoming Encounters Date Type Department Care Team (Late st Contact Info) Description 02/01/2024 10:00 AM EDT Office Visit [facility] [address] [address] Louie Kaye MD [address] [address] Scheduled Orders Name Type Priority Associated Diagnoses Orde r Schedule MAGNESIUM Lab Routine Encounter for long-term (current) use of medications Expected: 07/23/2023 (Approximate), Expires: 07/23/2024 Scheduled Procedures Name Priority Associated Diagnoses Date/Ti [...] as of this encounter Visit Diagnoses Diagnosis Encounter for long-term (current) use of medications- Primary Encounter for long-term (current) use of other medications Gastroesophageal reflux disease without esophagitis Esophageal reflux documented in this encounter Advance Directives Documents on File Type Date Recorded 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
--- OUTSIDE RECORDS SUMMARY | 2023-08-05 23:21 | External Medical Summary | Summary of Care ---
Author Name Unknown Organization [facility] Address [address] [place] [address] Phone [phone] Care Team Providers Care Manager Leasing Name Role Phone Louie Kaye MD Primary Care Provider +1 [phone] Reason for Referral * Evaluate & Treat - Unlimited Visits (Within 10 days (routine)) - Pending Review Specialty Diagnoses / Procedures Referred By Rachel urena Referred To Contact Orthopaedic Surgery / Orthopedics Diagnoses Hip pain, right Louie Kaye MD [address] [address] Referral ID Status Reason Start Date Expiration Date Visits Requested Visits Authorized [id number] Pending Review Specialty Services Required 07/14/2023 999 [...] 0 01/13/2019 Active Lancets (ONETOUCH DELICA PLUS [id number]) MISCIndications:Type 2 diabetes mellitus with hemoglobin A1c goal of less than 8.0% (HCC) Use to check blood sugar up to 3 times per day E11.9 100 Each 11 01/17/2020 Active Pen Wellfleet 32G X 4 MMIndications:Type 2 diabetes mellitus [...] overdose. Seek immediate medical attention. https://www.youtu [email or web address]/watch?v=[email or web address] 1 Each 3 03/01/2023 Active Additional Information [...] hemoglobin A1c goal of less than 8.0% ([facility]) 38 units 0 04/18/2023 Active Ozempic (1 [...] control in clinical research program 01/03/2020 Overview: [employer]: A Randomized Controlled Trial (Project # [id number]). The [employer] program provides food-insecure diabetics with healthy food for their entire household (2 meals/ day X 5 days/week). The program also provides education on food preparation, healthy living, and diabetes self management. The research measures the effects of the program on patient health and wellbeing. Subject will begin the FFF program December 2019. Contact Information: Press Smith Helper: Dr. Palmer Anders ([phone]) CRC: Glory Arteaga ([phone]) RA: Chiara Laura ([phone]) Diagnosis changed due to Research Module. Go [...] On prozac, was inc to 30 mg [id number].Still.,wean 04/18/2007 Screening for malignant neoplasm of cervix 01/16/2007 06/08/2010 Overview: PAP--?mzt69--SN.Grill.----is [facility] Dr[facility]-- Del , had post Fu and [...] mRNA, LNP-s, No Pre serve, 2-Dose Series ([employer]) 05/01/2021 Hepatitis B, 20+ yrs 11/28/1995,07/28/1994,05/30 PPD [...] as of this encounter Miscellaneous Notes * Addendum Note - Louie Kaye MD [...] referral need to be placed into the [employer] system? Name of preferred specialist: Type of specialist: Orthopedics [facility] of [place] [facility] [place] Officer's Phone #: Specialist's Fax #: Reason for visit: Right Hip Date of visit: needs an appt documented in this encounter Plan of Treatment Upcoming Encounters Date Type Department Care Team (Late st Contact Info) Description 02/01/2024 10:00 AM EDT Office Visit [facility] [address] [address] Louie Kaye MD [address] [phone] Scheduled Procedures Name Priority Associated Diagnoses Date/Ti [...] 01/12/2021, Additional history exists GFR 03/24/2024 03/24/2023, 07/2022, 02/02/2023, Additional history exists Diabetic Eye Exam 06/27/2024 06/27/2023, , 10/04/2018, Additional history exists PAP SMEAR-EVERY 5 YRS,AGES 21-100 03/10/2025 03/10/2020, 03/10/2020, 02/10/2016, Additional history exists Lipid Panel 02/22/2027 02/22/2022, 05/2020, 03/10/2020, Additional history exists Pneumococcal Vaccine: [...] Documents on File Type Date Recorded 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
--- OUTSIDE RECORDS SUMMARY | 2023-08-05 23:22 | External Medical Summary | Summary of Care ---
Author Name Unknown Organization [facility] Address [address] [place] [place] [address] Phone [phone] Care Team Providers Care Svp Marketing Name Role Phone Louie Kaye MD Primary Care Provider +1 [phone] Reason for Visit * Reason Comments eRx-Medication Refill Encounter Details Date Type Department Care Team (Late st Contact Info) Description 05/27/2023 Refill [facility] [address] [facility] [place] [place] [address] Louie Kaye MD [address] [facility] [place] [address] Dyslipidemia, goal LDL below 100 Allergies Active Allergy Reactions Criticality Noted Date Comments Adhesive Tape Rash 04/22/2014 documented as of this encounter (statuses as of 05/30/2023) Medications Medication Sig Dispensed Refills Start Date End Date Status ASPIRIN 81 MG PO TABSIndications:DM type 2, goal A1c below 7 ONE DAILY 30 Tab 5 1 Active Cranberry 1000 MG Capsule Start: 01/13/19 9:00:00 EDT, PO, Daily 0 9 Active Apple Cider Vinegar 188 MG CAPS Start: 01/13/19 14:02:00 EDT, Apple cider vinegar, PO, bid 0 9 Active Lancets (ONETOUCH DELICA PLUS [id number]) MISCIndications:Typ e 2 diabetes mellitus with hemoglobin A1c goal of less than 8.0% (HCC) Use to check blood sugar up to 3 times per day E11.9 100 Each 11 0 Active Pen [place] 32G X 4 MMIndications:Type 2 diabetes mellitus [...] on tongue as needed. 0 1 Active [employer] Verio In Vitro Strip (Glucose Blood)Indications:T ype [...] OF THE DAY 90 Capsule 1 3 Active Levothyroxine Sodium 150 MCG Oral Tablet (Levoxyl)Indication [...] suspected opioid overdose. Seek immediate medical attention. https://[email or web address] [email or web address]/watch? [email or web address] 1 Each 3 3 Active Additional Information [...] a week. 6 mL 1 4 Active Ozempic (1 MG/DOSE) 4 MG/3ML Subcutaneous Solution Pen-injector (Semaglutide (1 MG/DOSE))Indication s:Dyslipidemia, goal LDL below 100 INJECT 1 MG UNDER THE SKIN WEEKLY 3 mL 5 3 05/30/19 24 Discontinued documented as of this encounter (statuses as of 05/30/2023) Active Problems Problem Noted Date Diagnosed Date Chronic bilateral thoracic back pain 07/26/2022 Recurrent major depressive disorder 11/09/2021 Encounter for examination fo r normal comparison and control in clinical research program 01/03/2020 Overview: [employer]: A Randomized Controlled Trial (Project # [id number]). The [employer] program provides food-insecure diabetics with healthy food for their entire household (2 meals/ day X 5 days/week). The program also provides education on food preparation, healthy living, and diabetes self management. The research measures the effects of the program on patient health and wellbeing. Subject will begin the FFF program December 2019. Contact Information: Gamma Facilities Operator: Dr. Palmer Anders ([phone]) CRC: Glory Arteaga ([phone]) RA: Chiara Laura ([phone]) Diagnosis changed due to Research Module. Go [...] as of this encounter (statuses as of 05/30/2023) Resolved Problems Problem Noted Date Diagnosed Date Resolved Date Controlled substance agreement signed 04/01/2016 11/23/2017 HTN, [...] 02/09/2008_ better with PT. 12/22/2007_ MRI -nml--Dr.KS Stewart try, not to be used w/Ibuprofen, some [...] On prozac, was inc to 30 mg [id number].Still.,wean 04/18/2007 Screening for malignant neoplasm of cervix 01/16/2007 06/08/2010 Overview: PAP--?kqr00--[place].Grill.----is satish DrGrill-- Del , had post Fu and pap . Viral warts 01/16/2007 06/08/2010 Overview: ICD-10 update of inactive term NEPHRITIS NOS IN OTH DIS-dm 03/31/2006 06/08/2010 Overview: :A neg MICROALBUMIN 03/29/06 132* ,start lisimopril. 30-07: 30, nml bmp, alt, 11 MICROALBUMIN 01/14/06 62* ,will RPT in 4 wks.- 33. DIABETES-ANTEPARTUM 11/02/2005 06/08/19 11 POLYHYDRAMNIOS-ANTEPART 10/06/200505/30 Type 2 diabetes mellitus wit h hemoglobin A1c goal of less than 7.0% 03/17/2005 07/23/2013 JOINT PAIN-L-LEG(aka KNEE) 07/20/2003 0 06/08/2010 LIPOMA SKIN NEC 07/20/2003 06/08/2010 Obesity 07/18/2003 12/07/2018 documented as of this encounter (statuses as of 05/30/2023) Immunizations Name Administration Dates Next Due COVID-19 mRNA, LNP-s, No Pre serve, 2-Dose Series ([employer]) 05/01/2021 Hepatitis B, 20+ yrs 11/28/1995,07/28/1994,05/30 PPD [...] encounter Miscellaneous Notes * Telephone Encounter - Lorin Medina [facility] - 05/30/2023 11:33 AM ESTSigned Prescriptions: Disp Refills Ozempic (1 MG/DOSE) 4 MG/3ML Subcutaneous *6 mL 1 Sig: Inject 1 mg under the skin once a week.Authorizing Provider: LOUIE KAYE User: LORIN MEDINA documented in this encounter Plan of Treatment Upcoming Encounters Date Type Department Care Team (Late st Contact Info) Description 02/01/2024 10:00 AM EDT Office Visit [facility] [address] [address] Louie Kaye MD [address] [address] Scheduled Procedures Name Priority Associated Diagnoses Date/Ti me COLONOSCOPY FLEXIBLE PROXIMA L DIAGNOSTIC Recall Family history of colon cancer Health Maintenance Due Date Last Done Comments HPV/Co-Test 1997 DTaP,Tdap,and Td Vaccines (2 - Td or Tdap) 05/04/2017 05/04/2007 Zoster Vaccines (1 of 2) 2017 Diabetic Eye Exam 03/23/2022 03/23/2021, , 11/17/2016, Additional history exists COVID-19 Vaccine (2 - 2022- season) 2023 [...] 03/24/2024 03/24/2023, 07/2022, 02/02/2023, Additional history exists PAP SMEAR-EVERY 5 YRS,AGES 21-100 03/10/2025 03/10/2020, 03/10/2020, 02/10/2016, Additional history exists Lipid Panel 02/22/2027 02/22/2022, 0305/2020, 03/10/2020, Additional history exists Pneumococcal Vaccine: Pediatrics [...] as of this encounter Visit Diagnoses Diagnosis Dyslipidemia, goal LDL below 100 Other and unspecified hyperlipidemia documented in this encounter Advance Directives Documents on File Type Date Recorded 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
--- OUTSIDE RECORDS SUMMARY | 2023-08-05 23:22 | External Medical Summary | Summary of Care ---
Author Name Unknown Organization [facility] Address [address] [facility] [address] Phone [phone] Care Team Providers Care African Studies Professor Name Role Phone Héctor Johnson MD Primary Care Provider [phone] [phone] Reason for Visit * Reason Onset Date Comments Referral 07/13/2023 Encounter Details Date Type Department Care Team (Late st Contact Info) Description 07/13/[address] [facility] [address] [address] Héctor Johnson MD [address] [place] [address] Referral Allergies Active Allergy Reactions Criticality Noted Date Comments Adhesive Tape Rash 04/22/2014 documented as of this encounter (statuses as of 07/13/2023) Medications Medication Sig Dispensed Refills Start Date End Date Status ASPIRIN 81 MG PO TABSIndications:DM type 2, goal A1c below 7 ONE DAILY 30 Tab 5 04/01/2011 Active Cranberry 1000 MG Capsule Start: 01/13/19 9:00:00 EDT, PO, Daily 0 01/13/2019 Active Apple Cider Vinegar 188 MG CAPS Start: 01/13/19 14:02:00 EDT, Apple cider vinegar, PO, bid 0 01/13/2019 Active Lancets (ONETOUCH DELICA PLUS [id number]) MISCIndications:Type 2 diabetes mellitus with hemoglobin A1c goal of less than 8.0% (HCC) Use to check blood sugar up to 3 times per day E11.9 100 Each 11 01/17/2020 Active Pen [place] 32G X 4 MMIndications:Type 2 diabetes mellitus [...] suspected opioid overdose. Seek immediate medical attention. [email or web address]?v=[email or web address] 1 Each 3 03/01/2023 Active Additional Information [...] as of this encounter (statuses as of 07/13/2023) Active Problems Problem Noted Date Diagnosed Date Chronic bilateral thoracic back pain 07/26/2022 Encounter for examination fo r normal comparison and control in clinical research program 01/03/2020 Overview: Fresh Food [employer]here [employer]): A Randomized Controlled Trial (Project # [id number]). The Fresh Food Farmacy program provides food-insecure diabetics with healthy food for their entire household (2 meals/ day X 5 days/week). The program also provides education on food preparation, healthy living, and diabetes self management. The research measures the effects of the program on patient health and wellbeing. Subject will begin the FFF program December 2019. Contact Information: Credit Risk Analyst: Dr. Palmer Anders ([phone]) CRC: Glory Arteaga ([phone]) RA: Chiara Laura ([phone]) Diagnosis changed due to Research Module. Go [...] as of this encounter (statuses as of 07/13/2023) Resolved Problems Problem Noted Date Diagnosed Date [...] On prozac, was inc to 30 mg Puk57Iz.Still.,wean 04/18/2007 Screening for malignant neoplasm of cervix 01/16/2007 06/08/2010 Overview: PAP--?feg50--RA.Grill.----is [facility] Dr[facility]-- Del , had post Fu [...] as of this encounter (statuses as of 07/13/2023) Immunizations Name Administration Dates Next Due COVID-19 mRNA, LNP-s, No Pre serve, 2-Dose Series ([employer]) 05/01/2021 Hepatitis B, 20+ yrs 11/28/1995,07/28/1994,05/30 PPD [...] encounter Miscellaneous Notes * Telephone Encounter - Candie Jerome OSA [...] referral need to be placed into the [employer] system? Name of preferred specialist: Type of specialist: Orthopedics [facility] [place] Phone #: Specialist's Fax #: Reason for visit: Right Hip Date of visit: needs an appt documented in this encounter Plan of Treatment Upcoming Encounters Date Type Department Care Team (Late st Contact Info) Description 02/01/2024 10:00 AM EDT Office Visit [facility] [address] [phone] Héctor Johnson [...] Documents on File Type Date Recorded Patient Word Processor Operator Expl anation Advance Directives and Living Will 11/02/2005 Power of Hearing Consultant 11/02/2005 Care Teams African Studies Professor Relationship Specialty Start Date End Date Héctor Johnson MD [address] [phone] PCP - General Family Medicine 05/20/21 documented as of this encounter
--- OUTSIDE RECORDS SUMMARY | 2023-08-05 23:22 | External Medical Summary | Summary of Care ---
Author Name Unknown Organization [facility] Address [address] [place] [address] Phone [phone] Care Team Providers Care Cattle Knocker Name Role Phone Louie Kaye MD Primary Care Provider [phone] Reason for Referral * Evaluate & Treat - Unlimited Visits (Within 10 days (routine)) - Pending Review Specialty Diagnoses / Procedures Referred By Rachel urena Referred To Contact Orthopaedic Surgery / Orthopedics Diagnoses Hip pain, left Louie Kaye MD [address] [address] Referral ID Status Reason Start Date Expiration Date Visits Requested Visits Authorized [id number] Pending Review Specialty Services Required 07/12/2023 999 999 Question Answer Referral Priority Within 10 days (routine) Where should this appointment be scheduled? [facility] What body part is the patient being seen for? Hip What condition is the patient being seen for? Arthritis including related infection Encounter Details Date Type Department Care Team (Late st Contact Info) Description 07/12/2023 Telephone [facility] Sharmaine Hardin [address] [phone] Louie Kaye MD [address] [address] Allergies Active Allergy Reactions Criticality Noted Date Comments Adhesive Tape Rash 04/22/2014 documented as of this encounter (statuses as of 07/12/2023) Medications Medication Sig Dispensed Refills Start Date End Date Status ASPIRIN 81 MG PO TABSIndications:DM type 2, goal A1c below 7 ONE DAILY 30 Tab 5 04/01/2011 Active Cranberry 1000 MG Capsule Start: 01/13/19 9:00:00 EDT, PO, Daily 0 01/13/2019 Active Apple Cider Vinegar 188 MG CAPS Start: 01/13/19 14:02:00 EDT, Apple cider vinegar, PO, bid 0 01/13/2019 Active Lancets (ONETOUCH DELICA PLUS [id number]) MISCIndications:Type 2 diabetes mellitus with hemoglobin A1c goal of less than 8.0% (HCC) Use to check blood sugar up to 3 times per day E11.9 100 Each 11 01/17/2020 Active Pen [place] 32G X 4 MMIndications:Type 2 diabetes mellitus [...] on tongue as needed. 0 05/15/2021 Active EnerG2Touch Verio In Vitro Strip (Glucose Blood)Indications:Ty pe [...] overdose. Seek immediate medical attention. [email or web address]://[email or web address] [email or web address]/watch?v=[email or web address] 1 Each 3 03/01/2023 Active Additional Information [...] as of this encounter (statuses as of 07/12/2023) Active Problems Problem Noted Date Diagnosed Date Chronic bilateral thoracic back pain 07/26/2022 Encounter for examination fo r normal comparison and control in clinical research program 01/03/2020 Overview: [email or web address]: A Randomized Controlled Trial (Project # [id number]). The Fresh Food FarmThe Simple program provides food-insecure diabetics with healthy food for their entire household (2 meals/ day X 5 days/week). The program also provides education on food preparation, healthy living, and diabetes self management. The research measures the effects of the program on patient health and wellbeing. Subject will begin the FFF program December 2019. Contact Information: Technology Teacher: Dr. Palmer Anders ([phone]) CRC: Glory Arteaga ([phone]) RA: Chiara Laura ([phone]) Diagnosis changed due to Research Module. Go [...] as of this encounter (statuses as of 07/12/2023) Resolved Problems Problem Noted Date Diagnosed Date [...] On prozac, was inc to 30 mg Wnr78Oi.Still.,wean 04/18/2007 Screening for malignant neoplasm of cervix 01/16/2007 06/08/2010 Overview: PAP--?nqp80--WH.Grill.----[facility] [place] , had post Fu and pap [...] as of this encounter (statuses as of 07/12/2023) Immunizations Name Administration Dates Next Due COVID-19 mRNA, LNP-s, No Pre serve, 2-Dose Series ([employer]) 05/01/2021 Hepatitis B, 20+ yrs 11/28/1995,07/28/1994,05/30 PPD [...] Addendum Note - Louie Kaye MD - 07/12/2023 5:22 PM ESTAddended by: LOUIE KAYE on: 07/12/2023 05:22 PM Modules accepted: Orders * Telephone Encounter - Louie Kaye MD - 07/12/2023 5:22 PM EST Referral signed * Telephone Encounter - Maria De Jesus Gómez OSA - 07/12/2023 9:31 AM EST Pt is requesting an orthopedic referral for her right hip due to ongoing pain. Pt wants to see Dr. Coy at [facility]. Please place referral if agreeable. Thanks! documented in this encounter Plan of Treatment Upcoming Encounters Date Type Department Care Team (Late st Contact Info) Description 02/01/2024 10:00 AM EDT Office Visit [facility] [address] [phone] Louie Kaye MD [address] [phone] Scheduled Procedures Name Priority Associated Diagnoses Date/Ti me COLONOSCOPY FLEXIBLE PROXIMA L DIAGNOSTIC Recall Family history of colon cancer Scheduled Referrals Name Type Priority Associated Diagnoses Order Schedule ORTHOPAEDICS REFERRAL OP Referral Within 10 days (routine) Hip pain, left Ordered: 07/12/2023 Health Maintenance Due Date Last Done Comments [...] this encounter Visit Diagnoses Diagnosis Hip pain, left- Primary Pain in joint, pelvic region and thigh documented in this encounter Advance Directives Documents on File Type Date Recorded Patient Dietary Manager Expl anation Advance Directives and Living Will 11/02/2005 Power of Supercharger Repair Supervisor 11/02/2005 Care Teams Cattle Knocker Relationship Specialty Start Date End Date Louie Kaye MD [address] [phone] PCP - General Family Medicine 05/20/21 documented as of this encounter
--- OUTSIDE RECORDS SUMMARY | 2023-08-05 23:22 | External Medical Summary | Summary of Care ---
Author Name Unknown Organization [facility] Address [address] [place] [address] Phone [phone] Care Team Providers Care Catering Truck Driver Name Role Phone Louie Kaye MD Primary Care Provider [phone] [phone] Reason for Referral * Evaluate & Treat - Unlimited Visits (Within 10 days (routine)) - Pending Review Specialty Diagnoses / Procedures Referred By Rachel urena Referred To Contact Orthopaedic Surgery / Orthopedics Diagnoses Hip pain, left Louie Kaye MD [address] [address] Referral ID Status Reason Start Date Expiration Date Visits Requested Visits Authorized [id number] Pending Review Specialty Services Required 07/12/2023 999 [...] 0 01/13/2019 Active Lancets (ONETOUCH DELICA PLUS [id number]) MISCIndications:Type 2 diabetes mellitus with hemoglobin A1c goal of less than 8.0% (HCC) Use to check blood sugar up to 3 times per day E11.9 100 Each 11 01/17/2020 Active Pen [place] 32G X 4 MMIndications:Type 2 diabetes mellitus [...] on tongue as needed. 0 05/15/2021 Active FamiliarTouch Verio In Vitro Strip (Glucose Blood)Indications:Ty pe [...] overdose. Seek immediate medical attention. [email or web address]://[email or web address] [email or web address]/watch?v=[email or web address] 1 Each 3 03/01/2023 Active Additional Information [...] control in clinical research program 01/03/2020 Overview: [employer] Food Next 1 Interactive: A Randomized Controlled Trial (Project # [id number]). The Fresh Food FarmOctonotco program provides food-insecure diabetics with healthy food for their entire household (2 meals/ day X 5 days/week). The program also provides education on food preparation, healthy living, and diabetes self management. The research measures the effects of the program on patient health and wellbeing. Subject will begin the FFF program December 2019. Contact Information: Microwave Remote Sensing Scientist: Dr. Palmer Anders ([phone]) CRC: Glory Arteaga ([phone]) RA: Chiara Laura ([phone]) Diagnosis changed due to Research Module. Go [...] On prozac, was inc to 30 mg Chc44Vq.Still.,wean 04/18/2007 Screening for malignant neoplasm of cervix 01/16/2007 06/08/2010 Overview: PAP--?vec88--DQ.Grill.[facility] [place] , had post Fu and pap [...] mRNA, LNP-s, No Pre serve, 2-Dose Series ([employer]) 05/01/2021 Hepatitis B, 20+ yrs 11/28/1995,07/28/1994,05/30 PPD [...] - Maria De Jesus Gómez OSA - 07/13/2023 9:47 AM EST [place] [facility] [place] * Addendum Note - Louie Kaye MD [...] Pt wants to see Dr. Coy [place] [facility] [place] place referral if agreeable. Thanks! documented in this encounter Plan of Treatment Upcoming Encounters Date Type Department Care Team (Late st Contact Info) Description 02/01/2024 10:00 AM EDT Office Visit [facility] [address] [phone] Louie Kaye MD [address] [phone] Scheduled Procedures Name Priority Associated Diagnoses Date/Ti [...] Documents on File Type Date Recorded Patient Stereotyper Expl anation Advance Directives and Living Will 11/02/2005 Power of Central Aisle Cashier 11/02/2005 Care Teams Catering Truck Driver Relationship Specialty Start Date End Date Louie Kaye MD [address] [phone] PCP - General Family Medicine 05/20/21 documented as of this encounter
--- OUTSIDE RECORDS SUMMARY | 2023-08-05 23:22 | External Medical Summary | Summary of Care ---
Author Name Unknown Organization [facility] Address [address] [place] [address] Phone [phone] Care Team Providers Care Gis Database Administrator Name Role Phone Louie Kaye MD Primary Care Provider [phone] Reason for Referral * Evaluate & Treat - Unlimited Visits (Within 10 days (routine)) - Pending Review Specialty Diagnoses / Procedures Referred By Rachel urena Referred To Contact Orthopaedic Surgery / Orthopedics Diagnoses Hip pain, left Louie Kaye MD [address] [address] Referral ID Status Reason Start Date Expiration Date Visits Requested Visits Authorized [id number] Pending Review Specialty Services Required 07/12/2023 999 999 Question Answer Referral Priority Within 10 days (routine) Where should this appointment be scheduled? [facility] What body part is the patient being seen for? Hip What condition is the patient being seen for? Arthritis including related infection Encounter Details Date Type Department Care Team (Late st Contact Info) Description 07/12/2023 Telephone [facility] Sharmaine Hardin [address] [...] 0 01/13/2019 Active Lancets (ONETOUCH DELICA PLUS [id number]) MISCIndications:Type 2 diabetes mellitus with hemoglobin A1c goal of less than 8.0% (HCC) Use to check blood sugar up to 3 times per day E11.9 100 Each 11 01/17/2020 Active Pen [place] 32G X 4 MMIndications:Type 2 diabetes mellitus [...] on tongue as needed. 0 05/15/2021 Active Vega-ChiTouch Verio In Vitro Strip (Glucose Blood)Indications:Ty pe [...] overdose. Seek immediate medical attention. [email or web address]://[email or web address] [email or web address]/watch?v=[email or web address] 1 Each 3 03/01/2023 Active Additional Information [...] control in clinical research program 01/03/2020 Overview: [employer] Food Easy Pairings: A Randomized Controlled Trial (Project # [id number]). The Fresh Food FarmPlandai [employer] program provides food-insecure diabetics with healthy food for their entire household (2 meals/ day X 5 days/week). The program also provides education on food preparation, healthy living, and diabetes self management. The research measures the effects of the program on patient health and wellbeing. Subject will begin the FFF program December 2019. Contact Information: Director Retail Brand Development: Dr. Palmer Anders ([phone]) CRC: Glory Arteaga ([phone]) RA: Chiara Laura ([phone]) Diagnosis changed due to Research Module. Go [...] On prozac, was inc to 30 mg Qdp80Mm.Still.,wean 04/18/2007 Screening for malignant neoplasm of cervix 01/16/2007 06/08/2010 Overview: PAP--?vws00--LQ.[facility] , had post Fu and [...] mRNA, LNP-s, No Pre serve, 2-Dose Series ([employer]) 05/01/2021 Hepatitis B, 20+ yrs 11/28/1995,07/28/1994,05/30 PPD [...] [place] [facility] [place] referral if agreeable. Thanks! documented in this encounter Plan of Treatment Upcoming Encounters Date Type Department Care Team (Late st Contact Info) Description 02/01/2024 10:00 AM EDT Office Visit [facility] [address] [phone] Louie Kaye MD [address] [phone] Scheduled Procedures Name Priority Associated Diagnoses Date/Ti [...] Documents on File Type Date Recorded Patient Inspector Shells Expl anation Advance Directives and Living Will 11/02/2005 Power of Hydroelectric Plant Electrical Engineer 11/02/2005 Care Teams Gis Database Administrator Relationship Specialty Start Date End Date Louie Kaye MD [address] [id number] PCP - General Family Medicine 05/20/21 documented as of this encounter
--- OUTSIDE RECORDS SUMMARY | 2023-08-05 23:22 | External Medical Summary | Summary of Care ---
Author Name Unknown Organization [facility] Address [address] [place] [address] Phone [phone] Care Team Providers Care Orthopedic Assistant Name Role Phone Héctor Johnson MD Primary Care Provider [phone] Reason for Visit * Reason Comments NEW PATIENT Referred for finger nail abnormalities x months. Has tired oral medications for fungus, helped a little but came back. Tried otc topicals for fungus, has been using otc healing lotions. Was given doxy on Tuesday, and gave a sample of thumb nails today for culture, ordered by referring doctor. * Evaluate & Treat - Unlimited Visits (Within 10 days (routine)) - Pending Review Specialty Diagnoses / Procedures Referred By Rachel urena Referred To Contact Dermatology Diagnoses Nail abnormalities Rash of hands Josette Reece MD [address] [facility] [place] [address] Referral ID Status Reason Start Date Expiration Date Visits Requested Visits Authorized [id number] Pending Review Specialty Services Required [phone] Encounter Details Date Type Department Care Team (Late st Contact Info) Description 04/20/2023 10:20 AM EST Office Visit Dermatology [facility] ([place], [place]), [place] [id number] [facility] [address] Tessa Ricci PA-C [address] [facility] ([place], [place]) [place] [address] Onychomycosis* Allergies Active Allergy Reactions Criticality Noted Date Comments Adhesive Tape Rash 04/22/2014 documented as of this encounter (statuses as of 05/26/2023) Medications Medication Sig Dispensed Refills Start Date End Date Status ASPIRIN 81 MG PO TABSIndications:DM type 2, goal A1c below 7 ONE DAILY 30 Tab 5 04/01/2011 Active Cranberry 1000 MG Capsule Start: 01/13/19 9:00:00 EDT, PO, Daily 0 01/13/2019 Active Apple Cider Vinegar 188 MG CAPS Start: 01/13/19 14:02:00 EDT, Apple cider vinegar, PO, bid 0 01/13/2019 Active Lancets (ONETOUCH DELICA PLUS [id number]) MISCIndications:Type 2 diabetes mellitus with hemoglobin A1c goal of less than 8.0% (HCC) Use to check blood sugar up to 3 times per day E11.9 100 Each 11 01/17/2020 Active Pen [place] 32G X 4 MMIndications:Type 2 diabetes mellitus [...] needed. E11.9 100 Strip 11 08/19/2021 Active Ozempic (1 MG/DOSE) 4 MG/3ML Subcutaneous Solution Pen-injector (Semaglutide (1 MG/DOSE))Indications :Dyslipidemia, goal LDL below 100 INJECT 1 MG UNDER THE SKIN WEEKLY 3 mL 5 10/20/2022 Active SUMAtriptan Succinate 100 MG Oral TabletIndications:Mi [...] suspected opioid overdose. Seek immediate medical attention. [email or web address]://www.[email or web address] Freedomu [email or web address]/watch?v=[email or web address] 1 Each 3 03/01/2023 Active Additional Information [...] hemoglobin A1c goal of less than 8.0% ([facility]) 38 units 0 04/18/2023 Active Doxycycline Hyclate 100 MG Oral CapsuleIndications:N ail abnormalities Take 1 Capsule by mouth in the morning and 1 Capsule before bedtime. Do all this for 20 days. Until gone.. 40 Capsule 0 04/18/2023 3 Triamcinolone Acetonide 0.1 % External Cream (Aristocort)Indicati ons:Rash of hands Apply topically to affected area 2 times a day for 7 days. To affected area. 15 g 0 04/18/2023 3 documented as of this encounter (statuses as of 05/26/2023) Active Problems Problem Noted Date Diagnosed Date Chronic bilateral thoracic back pain 07/26/2022 Recurrent major depressive disorder 11/09/2021 Encounter for examination fo r normal comparison and control in clinical research program 01/03/2020 Overview: [employer]: A Randomized Controlled Trial (Project # [id number]). The [employer] program provides food-insecure diabetics with healthy food for their entire household (2 meals/ day X 5 days/week). The program also provides education on food preparation, healthy living, and diabetes self management. The research measures the effects of the program on patient health and wellbeing. Subject will begin the FFF program December 2019. Contact Information: Skidder Operator: Dr. Palmer Anders ([phone]) CRC: Glory Arteaga ([phone]) RA: Chiara Laura ([phone]) Diagnosis changed due to Research Module. Go [...] as of this encounter (statuses as of 05/26/2023) Resolved Problems Problem Noted Date Diagnosed Date [...] On prozac, was inc to 30 mg [id number].Still.,wean 04/18/2007 Screening for malignant neoplasm of cervix 01/16/2007 06/08/2010 Overview: PAP--?ajv17--EO.Grill.----is satish DrGrill-- Del , had post Fu [...] as of this encounter (statuses as of 05/26/2023) Immunizations Name Administration Dates Next Due COVID-19 mRNA, LNP-s, No Pre serve, 2-Dose Series ([employer]) 05/01/2021 Hepatitis B, 20+ yrs 11/28/1995,07/28/1994,05/30 PPD [...] on file documented as of this encounter Progress Notes * Ten Treviño MD - 05/26/2023 10:35 AM EST I have reviewed the charting notes and orders and associated images and agree with the assessment and plan of Tessa Clifford PA-C . Ten Treviño MD., Dermatology [facility] [address] [place] [address] * Tessa Ricci PA-C - 04/20/2023 10:32 AM EST Nursing Notes: Adriana Urbano LPN 04/20/23 1037 Signed Patient identified by name and date. Chief Complaint Patient presents with NEW PATIENT Referred for finger nail abnormalities x months. Has tired oral medications for fungus, helped a little but came back. Tried otc topicals for fungus, has been using otc healing lotions. Was given doxy on Tuesday, and gave a sample of thumb nails today for culture, ordered by referring doctor. SUBJECTIVE: HPI: Miguel Manuel is a 57 year old female seen at the request of PCP for evaluation and treatmentof nail abnormalities. Ongoing x months C/o swelling, redness, pain and dry skin around cuticles. Gets manicures done regularly, has brought her own set of tools/dip slovak to her appointments the last few visits. Previous attempted tx includes terbinafine x 6 weeks in Jan 2023 with some improvement but recurrence when stopped med. Has not noticed any breaking of the nails. Recently started getting a boil on R hand. PCP obtained fungal culture of nails this morning and treated with doxycycline and triamcinolone cream 2 days ago. Has not noticed significant improvement yet. REVIEW OF SYSTEMS: See HPI- all other findings negative Constitutional: (-) fever, chills, sweats, weight loss Cardiovascular: (-) lower extremity edema Skin: (-) no rash or new or changing moles or skin lesions Past Medical History: Diagnosis Date Depression 11/02/2012 Depressive disorder, not elsewhere classified Diabetes (HCC) Diabetes mellitus complicating , antepartum 11/02/2005 Dyslipidemia, goal LDL below 100 01/17/2006 Gastroesophageal reflux disease without esophagitis 02/12/2016 HTN, goal below 140/90 01/03/2012 pt denies as of 03/18/21 Hypothyroidism Kidney stones Migraines Motion sickness Polyhydramnios, antepartum complication 10/06/2005 PONV (postoperative nausea and vomiting) Patient Active Problem List Diagnosis Code Acquired hypothyroidism E03.9 ADVANCE DIRECTIVE INFORMATION Calculus of kidney N20.0 Dyslipidemia, goal LDL below 100 E78.5 Varicose vein of leg I83.90 Other specified disorder of gallbladder K82.8 Abnormal results of liver function studies R94.5 Localized osteoarthrosis not specified whether primary or secondary, unspecified site M19.90 Migraine with aura G43.109 Depression F32.A FELICITY (obstructive sleep apnea) G47.33 Type 2 diabetes mellitus with hemoglobin A1c goal of less than 8.0% (HCC) E11.9 Gastroesophageal reflux disease without esophagitis K21.9 HTN, goal below 130/80 I10 Encounter for examination for normal comparison and control in clinical research program Z00.6 Recurrent major depressive disorder (HCC) F33.9 Chronic bilateral thoracic back pain M54.6, G89.29 SOCIAL HISTORY: Social History Tobacco Use Smoking status: Former Packs/day: 0.50 Years: 15.00 Additional pack years: 0.00 Total pack years: 7.50 Types: Cigarettes Quit date: 05/30/1997 Years since quittin.9 Smokeless tobacco: Never Substance Use Topics Alcohol use: Yes Comment: Once every few months Vaping/E-Cigarette Use Vaping/E-Cigarette Use Never User Vaping/E-Cigarette Substances Vaping/E-Cigarette Devices MEDICATIONS: Current Outpatient Medications Medication Sig Dispense Refill ASPIRIN 81 MG PO TABS ONE DAILY 30 Tab 5 Cranberry 1000 MG Capsule Start: 01/13/19 9:00:00 EDT, PO, Daily Apple Cider Vinegar 188 MG CAPS Start: 01/13/19 14:02:00 EDT, Apple cider vinegar, PO, bid Lancets ([place] EnergyTOUCH DELICA PLUS [id number]) [facility] Use to check blood sugar up to 3 times per day E11.9 100 Each 11 Pen Reno 32G X 4 MM Use as directed. For use with Tresiba insulin pen. 100 Each 3 Ibuprofen 200 MG Oral Tablet (Motrin) Take 3 Tablets by mouth 2 times a day as needed. In the morning and possibly 400mg mid day if needed. Ibuprofen PM 200-38 MG Oral Tablet (Ibuprofen-diphenhydrAMINE Cit) Take 2 Tablets by mouth at bedtime as needed. Ondansetron 4 MG Oral Tablet Disintegrating (Zofran) Place 1 Tablet on tongue as needed. (Patient not taking: Reported on 04/18/2023) [employer] In Vitro Strip (Glucose Blood) Test blood sugar 2 to 3 times a day and as needed. E11.9 100 Strip 11 Ozempic (1 MG/DOSE) 4 MG/3ML Subcutaneous Solution Pen-injector (Semaglutide (1 MG/DOSE)) INJECT 1 MG UNDER THE SKIN WEEKLY 3 mL 5 SUMAtriptan Succinate 100 MG Oral Tablet ONE AT ONSET OF HEADACHE; MAY REPEAT DOSE IN TWO HOURS IF NEEDED; NO MORE THAN 2 PILLS/24 HRS OR 4 PILLS/WEEK (Patient not taking: Reported on 04/18/2023) 6 Tablet 2 Omeprazole 40 MG Oral Capsule Delayed Release (PriLOSEC) TAKE 1 CAPSULE BY MOUTH DAILY 1 HOUR BEFORE THE FIRST MEAL OF THE DAY 90 Capsule 1 Levothyroxine Sodium 150 MCG Oral Tablet (Levoxyl) TAKE 1 TABLET BY MOUTH EVERY DAY AT LEAST 30 MINBEFORE BREAKFAST OR OTHER MEDICATION 90 Tablet 3 Lisinopril 10 MG Oral Tablet (Prinivil) TAKE 1 TABLET BY MOUTH EVERY DAY IN THE MORNING 90 Tablet 3 Oxybutynin Chloride 5 MG Oral Tablet (Ditropan) TAKE 1 TABLET BY MOUTH EVERY DAY IN THE MORNING ANDBEFORE BEDTIME 180 Tablet 3 Jardiance 25 MG Oral Tablet (Empagliflozin) TAKE 1 TABLET BY MOUTH EVERY DAY IN THE MORNING 90 Tablet 1 metFORMIN HCl 1000 MG Oral Tablet (Glucophage) TAKE 1 TABLET BY MOUTH TWICE A DAY 180 Tablet 3 Atorvastatin Calcium 20 MG Oral Tablet (Lipitor) TAKE 1 TABLET BY MOUTH EVERY DAY 90 Tablet 2 Citalopram Hydrobromide 20 MG Oral Tablet (CeleXA) TAKE 1 TABLET BY MOUTH EVERY DAY IN THE MORNING 90 Tablet 3 Naloxone HCl 4 MG/0.1ML Nasal Liquid (Narcan Nasal) Administer 1 spray into 1 nostril for suspectedopioid overdose. Seek immediate medical attention. [email or web address]?v=[email or web address] (Patient not taking: Reported on 04/18/2023) 1 Each 3 Alendronate Sodium 70 MG Oral Tablet (Fosamax) TAKE 1 TAB BY MOUTH ONCE A WEEK W/ 8OZ. WATER 30MIN BEFORE 1ST MEAL OF DAY. REMAIN UPRIGHT X30MIN 12 Tablet 3 tiZANidine HCl 4 MG Oral Capsule Take 1 Capsule by mouth 2 times a day as needed for Muscle spasms.hold for sedation 28 Capsule 1 Doxycycline Hyclate 100 MG Oral Capsule Take 1 Capsule by mouth in the morning and 1 Capsule beforebedtime. Do all this for 20 days. Until gone.. 40 Capsule 0 Triamcinolone Acetonide 0.1 % External Cream (Aristocort) Apply topically to affected area 2 times a day for 7 days. To affected area. 15 g 0 Tresiba FlexTouch 100 UNIT/ML Subcutaneous Solution Pen-injector (Insulin Degludec) 38 units No current facility-administered medications for this visit. ALLERGIES: Adhesive tape OBJECTIVE: GEN: Healthy, alert, no distress, appears oriented, pleasant, and cooperative. PSYCH: Appropriate mood and affect, alert SKIN: Detailed exam of bilateral hands was completed and are within normal limits with the following exceptions: 1. Erythema, edema crusting and flaking of nail folds, worse on bilateral thumbs but present on alldigits; yellow discoloration of distal thumb nails No pitting of nails noted ASSESSMENT/PLAN: 1. Dermatitis of nail folds, r/o onychomycosis- culture pending. Favor allergic contact dermatitis - will wait for culture results and treat accordingly. For now, recommend finishing course of doxycycline and triamcinolone cream as prescribed. Strict avoidance of manicure or nail trauma advised. Patient alone today. Follow-up: PRN Photos taken, patient consented to photos. Applicable photos (if any) and chart reviewed by Dr. Ten Treviño The patient was encouraged to contact me with any further questions or concerns. Tessa Ricci PA-C 04/20/2023 10:33 AM documented in this encounter Nursing Notes * Adriana Urbano LPN - 04/20/2023 10:37 AM EST Patient identified by name and date. Chief Complaint Patient presents with NEW PATIENT Referred for finger nail abnormalities x months. Has tired oral medications for fungus, helped a little but came back. Tried otc topicals for fungus, has been using otc healing lotions. Was given doxy on Tuesday, and gave a sample of thumb nails today for culture, ordered by referring doctor. documented in this encounter Plan of Treatment Upcoming Encounters Date Type Department Care Team (Late st Contact Info) Description 02/01/2024 10:00 AM EDT Office Visit [facility] [address] [place] [phone] Héctor Johnson MD [address] [id number] Scheduled Procedures Name Priority Associated Diagnoses Date/Ti [...] Not on filedocumented as of this encounter Procedures Procedure Name Priority Date/Time Associated Diagnosis Comments DERM IMAGE (SITE) Routine 04/20/2023 Onychomycosis documented in this encounter Results * DERM IMAGE (SITE) (04/20/2023) 04/20/2023 Tessa Ricci PA-C DIGITAL ALEXX TOGRAPHY documented in this encounter Visit Diagnoses Diagnosis Onychomycosis- Primary Dermatophytosis of nail documented in this encounter Advance Directives Documents on File Type Date Recorded Patient Miller Supervisor Expl anation Advance Directives and Living Will 11/02/2005 Power of Machine Load Clerk 11/02/2005 Care Teams Orthopedic Assistant Relationship Specialty Start Date End Date Héctor Johnson MD [address] [place] [id number] PCP - General Family Medicine 05/20/21 documented as of this encounter
--- OUTSIDE RECORDS SUMMARY | 2023-08-05 23:22 | External Medical Summary | Summary of Care ---
Author Name Unknown Organization [facility] Address [address] [facility] [address] Phone [phone] Care Team Providers Care Motion Graphics Artist Name Role Phone Héctor Johnson MD Primary Care Provider [phone] Reason for Visit * Reason Onset Date Comments Referral 07/13/2023 Encounter Details Date Type Department Care Team (Late st Contact Info) Description 07/13/2023 Telephone [facility] [address] [place] [phone] Héctor Johnson MD [...] 0 01/13/2019 Active Lancets (ONETOUCH DELICA PLUS [id number]) MISCIndications:Type 2 diabetes mellitus with hemoglobin A1c goal of less than 8.0% (HCC) Use to check blood sugar up to 3 times per day E11.9 100 Each 11 01/17/2020 Active Pen [place] 32G X 4 MMIndications:Type 2 diabetes mellitus [...] suspected opioid overdose. Seek immediate medical attention. [email or web address] [email or web address]?v=[email or web address] 1 Each 3 03/01/2023 Active Additional Information [...] clinical research program 01/03/2020 Overview: [employer] A Randomized Controlled Trial (Project # [id number]). The [employer] program provides food-insecure diabetics with healthy food for their entire household (2 meals/ day X 5 days/week). The program also provides education on food preparation, healthy living, and diabetes self management. The research measures the effects of the program on patient health and wellbeing. Subject will begin the FFF program December 2019. Contact Information: Interventional Tech: Dr. aPlmer Anders ([phone]) CRC: Glory Arteaga ([phone]) RA: Chiara Laura ([phone]) Diagnosis changed due to Research Module. Go [...] On prozac, was inc to 30 mg Ake85Zh.Still.,wean 04/18/2007 Screening for malignant neoplasm of cervix 01/16/2007 06/08/2010 Overview: PAP--?zji69--BI.Grill.----is satish DrGrill-- Del , had post Fu [...] mRNA, LNP-s, No Pre serve, 2-Dose Series ([employer]) 05/01/2021 Hepatitis B, 20+ yrs 11/28/1995,07/28/1994,05/30 PPD [...] referral need to be placed into the [employer] system? Name of preferred specialist: Type of specialist: Orthopedics [facility] [place] Examiner's Phone #: Specialist's Fax #: Reason for visit: Right Hip Date of visit: needs an appt documented in this encounter Plan of Treatment Upcoming Encounters Date Type Department Care Team (Late st Contact Info) Description 02/01/2024 10:00 AM EDT Office Visit [facility] [address] [place] [phone] Héctor Johnson MD [...] Documents on File Type Date Recorded Patient Cigar Binder Expl anation Advance Directives and Living Will 11/02/2005 Power of Time Lock Expert 11/02/2005 Care Teams Motion Graphics Artist Relationship Specialty Start Date End Date Héctor Johnson MD [address] [place] [address] [id number] PCP - General Family Medicine 05/20/21 documented as of this encounter
--- OUTSIDE RECORDS SUMMARY | 2023-08-05 23:22 | External Medical Summary | Summary of Care ---
Author Name Unknown Organization [facility] Address [address] [place] [address] Phone [phone] Care Team Providers Care Supply Chain Planner Name Role Phone Héctor Johnson MD Primary Care Provider [phone] Reason for Visit * Reason Comments NEW [...] Rash of hands Josette Reece MD [address] [facility] [place] [address] Referral ID Status Reason Start Date Expiration Date Visits Requested Visits Authorized [id number] Pending Review Specialty Services Required [phone] Encounter Details Date Type Department Care Team (Late st Contact Info) Description 04/20/2023 10:20 AM EST Office Visit Dermat[facility], [place] [phone] [facility] [address] Tessa Ricci PA-C [address] [facility] [place] [address] Onychomycosis* Allergies Active Allergy Reactions Criticality Noted [...] 0 01/13/2019 Active Lancets (ONETOUCH DELICA PLUS [id number]) MISCIndications:Type 2 diabetes mellitus with hemoglobin A1c goal of less than 8.0% (HCC) Use to check blood sugar up to 3 times per day E11.9 100 Each 11 01/17/2020 Active Pen [place] 32G X 4 MMIndications:Type 2 diabetes mellitus [...] suspected opioid overdose. Seek immediate medical attention. [email or web address]://www.[email or web address] Servicesu [email or web address]/watch?v=[email or web address] 1 Each 3 03/01/2023 Active Additional Information [...] hemoglobin A1c goal of less than 8.0% ([facility]) 38 units 0 04/18/2023 Active Doxycycline [...] control in clinical research program 01/03/2020 Overview: [employer]: A Randomized Controlled Trial (Project # [id number]). The [employer] program provides food-insecure diabetics with healthy food for their entire household (2 meals/ day X 5 days/week). The program also provides education on food preparation, healthy living, and diabetes self management. The research measures the effects of the program on patient health and wellbeing. Subject will begin the FFF program December 2019. Contact Information: Matching Machine Operator: Dr. Palmer Anders ([phone]) CRC: Gloyr Arteaga ([phone]) RA: Chiara Laura ([phone]) Diagnosis changed due to Research Module. Go [...] On prozac, was inc to 30 mg Wnf18Ra.Still.,wean 04/18/2007 Screening for malignant neoplasm of cervix 01/16/2007 06/08/2010 Overview: PAP--?gqr05--NQ.Grill.----is satish DrGrill-- Del , had post Fu [...] mRNA, LNP-s, No Pre serve, 2-Dose Series ([employer]) 05/01/2021 Hepatitis B, 20+ yrs 11/28/1995,07/28/1994,05/30 PPD [...] Clifford PA-C . Ten Treviño MD., Dermatology [facility] [address] [place] [address] * Tessa Ricci PA-C - 04/20/2023 10:32 [...] has brought her own set of tools/dip sri lankan to her appointments the last few visits. [...] EDT, Apple cider vinegar, PO, bid Lancets (whoactuallyTOUCH DELICA PLUS [id number]) [facility] Use to check blood sugar up to 3 times per day E11.9 100 Each 11 Pen [place] 32G X 4 MM Use as directed. [...] needed. (Patient not taking: Reported on 04/18/2023) [employer] In Vitro Strip (Glucose Blood) Test blood [...] for suspectedopioid overdose. Seek immediate medical attention. https://www.[email or web address]/watch?v=[email or web address] (Patient not taking: Reported on 04/18/2023) 1 [...] Description 02/01/2024 10:00 AM EDT Office Visit [facility] [address] [phone] Héctor Johnson MD [address] [phone] Scheduled Procedures Name Priority Associated Diagnoses Date/Ti [...] Documents on File Type Date Recorded Patient Clinical Program Consultant Expl anation Advance Directives and Living Will 11/02/2005 Power of Managing Partner 11/02/2005 Care Teams Supply Chain Planner Relationship Specialty Start Date End Date Héctor Johnson MD [address] [phone] PCP - General Family Medicine 05/20/21 documented as of this encounter
--- OUTSIDE RECORDS SUMMARY | 2023-08-05 23:22 | External Medical Summary | Summary of Care ---
Author Name Unknown Organization [facility] Address [address] [facility] [place] [address] Phone [phone] Care Team Providers Care Police Service Technician Name Role Phone Louie Kaye MD Primary Care Provider [phone] Reason for Visit * Reason Comments eRx-Medication Refill Encounter Details Date Type Department Care Team (Late st Contact Info) Description 02/19/2023 Refill [facility] [address] [facility] [place] [phone] Louie Kaye MD [address] [facility] [address] [place] [address] Encounter for long-term (current) use of medications*; Type 2 diabetes mellitus with hemoglobin A1c goal of less than 8.0% ([facility]) Allergies Active Allergy Reactions Criticality Noted Date Comments Adhesive Tape Rash 04/22/2014 documented as of this encounter (statuses as of 05/11/2023) Medications Medication Sig Dispensed Refills Start Date End Date Status ASPIRIN 81 MG PO TABSIndications:DM type 2, goal A1c below 7 ONE DAILY 30 Tab 5 1 Active Cranberry 1000 MG Capsule Start: 01/13/19 9:00:00 EDT, PO, Daily 0 9 Active Apple Cider Vinegar 188 MG CAPS Start: 01/13/19 14:02:00 EDT, Apple cider vinegar, PO, bid 0 9 Active Lancets (ONETOUCH DELICA PLUS [id number]) MISCIndications:Ty pe 2 diabetes mellitus with hemoglobin A1c goal of less than 8.0% (HCC) Use to check blood sugar up to 3 times per day E11.9 100 Each 11 0 Active Pen [place] 32G X 4 MMIndications:Type 2 diabetes mellitus [...] Active Ibuprofen PM 200-38 MG Oral Tablet (Ibuprofen-diphenh ydrAMINE Cit) Take 2 Tablets by mouth at bedtime as needed. 0 Active Ondansetron 4 MG Oral Tablet Disintegrating (Zofran) Place 1 Tablet on tongue as needed. 0 1 Active OneTouch Verio In Vitro Strip (Glucose Blood)Indications: Type 2 diabetes mellitus with hemoglobin A1c goal of less than 8.0% (HCC) Test blood sugar 2 to 3 times a day and as needed. E11.9 100 Strip 11 2 Active Ozempic (1 MG/DOSE) 4 MG/3ML Subcutaneous Solution Pen-injector (Semaglutide (1 MG/DOSE))Indicatio ns:Dyslipidemia, goal LDL below 100 INJECT 1 MG UNDER THE SKIN WEEKLY 3 mL 5 3 Active SUMAtriptan Succinate 100 MG Oral TabletIndications: Migraine with aura ONE AT ONSET OF HEADACHE; MAY REPEAT DOSE IN TWO HOURS IF NEEDED; NO MORE THAN 2 PILLS/24 HRS OR 4 PILLS/WEEK 6 Tablet 2 3 Active Additional Information Patient not taking.Reported on 04/18/2023 Omeprazole 40 MG Oral Capsule Delayed Release (PriLOSEC)Indicati ons:Gastroesophage al reflux disease without esophagitis TAKE 1 CAPSULE BY MOUTH DAILY 1 HOUR BEFORE THE FIRST MEAL OF THE DAY 90 Capsule 1 3 Active Levothyroxine Sodium 150 MCG Oral Tablet (Levoxyl)Indicatio ns:Acquired hypothyroidism TAKE 1 TABLET BY MOUTH EVERY DAY AT LEAST 30 MIN BEFORE BREAKFAST OR OTHER MEDICATION 90 Tablet 3 3 Active Lisinopril 10 MG Oral Tablet (Prinivil)Indicati ons:HTN, goal below 130/80 TAKE 1 TABLET BY MOUTH EVERY DAY IN THE MORNING 90 Tablet 3 3 Active Jardiance 25 MG Oral Tablet (Empagliflozin)Ind ications:Type 2 diabetes mellitus with hemoglobin A1c goal of less than 8.0% (HCC) TAKE 1 TABLET BY MOUTH EVERY DAY IN THE MORNING 90 Tablet 1 3 Active Oxybutynin Chloride 5 MG Oral Tablet (Ditropan)Indicati ons:Urinary urgency Take by mouth 1 Tablet in the morning AND 1 Tablet before bedtime. 60 Tablet 11 2 023 Discontinued Citalopram Hydrobromide 20 MG Oral Tablet (CeleXA)Indication s:Depression, unspecified depression type Take by mouth 1 Tablet in the morning. 90 Tablet 3 2 023 Discontinued Atorvastatin Calcium 20 MG Oral Tablet (Lipitor)Indicatio ns:Dyslipidemia, goal LDL below 100 TAKE 1 TABLET BY MOUTH EVERY DAY 90 Tablet 3 2 023 Discontinued metFORMIN HCl 1000 MG Oral Tablet (Glucophage)Indica tions:Dyslipidemia , goal LDL below 100 One tablet twice daily 180 Tablet 3 2 023 Discontinued Empagliflozin 25 MG Oral Tablet (Jardiance)Indicat ions:Type 2 diabetes mellitus with hemoglobin A1c goal of less than 8.0% (HCC) Take by mouth 1 Tablet in the morning. 90 Tablet 3 2 023 Discontinued B-12-SL 1000 MCG Sublingual Tablet Sublingual (Cyanocobalamin)In dications:B12 deficiency Place under the tongue 1,000 mcg daily . 90 Tablet 3 2 023 Discontinued(Me dication/Dose Changed) Alendronate Sodium 70 MG Oral Tablet (Fosamax) TAKE 1 TAB BY MOUTH ONCE A WEEK W/ 8OZ. WATER 30MIN BEFORE 1ST MEAL OF DAY. REMAIN UPRIGHT X30MIN 12 Tablet 2 3 023 Discontinued Tresiba FlexTouch 100 UNIT/ML Subcutaneous Solution Pen-injector (Insulin Degludec)Indicatio ns:Type 2 diabetes mellitus with hemoglobin A1c goal of less than 8.0% ([facility]) INJECT 40 UNITS UNDER THE SKIN DAILY 15 mL 5 3 023 Discontinued(Re fill) tiZANidine HCl 4 MG Oral CapsuleIndications :Sprain lumbar region, initial encounter,Acute left-sided low back pain with left-sided sciatica Take 1 Capsule by mouth 2 times a day as needed for Muscle spasms. hold for sedation 28 Capsule 0 3 023 Discontinued(Re fill) Terbinafine HCl 250 MG Oral TabletIndications: Enlarged and hypertrophic nails,Onychomycosi s Take 1 Tablet by mouth in the morning. for toenail fungus. Labs prior to refill. 42 Tablet 0 3 023 documented as of this encounter (statuses as of 05/11/2023) Active Problems Problem Noted Date Diagnosed Date Chronic bilateral thoracic back pain 07/26/2022 Recurrent major depressive disorder 11/09/2021 Encounter for examination fo r normal comparison and control in clinical research program 01/03/2020 Overview: [employer]: A Randomized Controlled Trial (Project # [id number]). The [employer] program provides food-insecure diabetics with healthy food for their entire household (2 meals/ day X 5 days/week). The program also provides education on food preparation, healthy living, and diabetes self management. The research measures the effects of the program on patient health and wellbeing. Subject will begin the FFF program December 2019. Contact Information: Top Hat Body Maker: Dr. Palmer Anders ([phone]) CRC: Glory Arteaga ([phone]) RA: Chiara Laura ([phone]) Diagnosis changed due to Research Module. Go [...] as of this encounter (statuses as of 05/11/2023) Resolved Problems Problem Noted Date Diagnosed Date [...] On prozac, was inc to 30 mg [id number].Still.,wean 04/18/2007 Screening for malignant neoplasm of cervix 01/16/2007 06/08/2010 Overview: PAP--?jmj18--ME.Grill.[facility] , had post Fu and [...] as of this encounter (statuses as of 05/11/2023) Immunizations Name Administration Dates Next Due COVID-19 mRNA, LNP-s, No Pre serve, 2-Dose Series (GI Track) 05/01/2021 Hepatitis B, 20+ yrs 11/28/1995,07/28/1994,05/30 PPD 07/12/2016, 7,02/18/2009,2008,03/31/2006 Pneumococcal Conjugate Vacc, 13 Valent (Prevnar) 03/04/2015 Seasonal Influenza, PF, 6 M & above, IM , (FluLaval or Fluzone) 03/16/2021,03/13/2020,03/26/2019,2017,03/25/2017 Seasonal Influenza, Quadriva lent, No Preserve, IM [...] encounter Miscellaneous Notes * Telephone Encounter - Deniz Trevino - 05/11/2023 6:47 AM EST Received message from [facility] regarding patient needing labs. Patient was notified. Successfully contacted patient and provided [facility] message. * Telephone Encounter - Shari Lee RP - 02/20/2023 8:16 AM EDTSigned Prescriptions: Disp Refills Jardiance 25 MG Oral Tablet (Empagliflozin)90 Tab*1 Sig: TAKE 1 TABLET BY MOUTH EVERY DAY IN THE MORNING Authorizing Provider: LOUIE KAYE Ordering User: SHARI LEE * Telephone Encounter - Shari Lee [facility] - 02/20/2023 8:15 AM EDT Provided 90 days supply with 1 refill(s). Per refill protocol patient should have Lipid panel on file within past year. Reviewed AMP report, Care Gaps/Health Maintenance, medications list, and for any routine labs typically ordered for this patient. Lab orders placed. Please contact patient to advise of labs ordered for blood draw. Recommend patient to fast if able for labs. Patient may still have water and regular medications. Advise to obtain labs before requesting the next refill. Thanks, Shari Lee PharmD Clinical Pharmacist [facility] [phone] 02/20/2023, 8:15 AM documented in this encounter Plan of Treatment Upcoming Encounters Date Type Department Care Team (Late st Contact Info) Description 02/01/2024 10:00 AM EDT Office Visit [facility] [address] [place] [phone] Louie Kaye MD [address] [id number] Scheduled Orders Name Type Priority Associated Diagnoses Orde r Schedule LIPID PANEL WITH DIRECT LDL IF TG IS HIGH Lab Routine Encounter for long-term (current) use of medications Expected: 02/27/2023 (Approximate), Expires: 02/21/2024 Scheduled Procedures Name Priority Associated Diagnoses Date/Ti me COLONOSCOPY FLEXIBLE PROXIMA L DIAGNOSTIC Recall Family history of colon cancer Health Maintenance Due Date Last Done Comments HPV/Co-Test 1997 DTaP,Tdap,and Td Vaccines (2 - Td or Tdap) 05/04/2017 05/04/2007 Zoster Vaccines (1 of 2) 2017 Diabetic Eye Exam 03/23/2022 03/23/2021, , 11/17/2016, Additional history exists COVID-19 Vaccine (2 - season) 2023 05/01/2021 [...] Additional history exists Lipid Panel 02/22/2027 02/22/2022, 0 05/2020, 03/10/2020, Additional history exists Pneumococcal Vaccine: Pediatrics (0 to 5 Years) and At-Risk Patients (6 to 64 Years) (3 - PPSV23 or PCV20) 2032 03/04/2015, 03/17/2005 Hepatitis B Completed 11/28/1995, 0 05/1994, 05/30/1994 Cologuard Discontinued 12/15/2017, 12/08/2017 Colonoscopy [...] for long-term (current) use of other medications Type 2 diabetes mellitus with hemoglobin A1c goal of less than 8.0% (HCC) documented in this encounter Advance Directives Documents on File Type Date Recorded Patient Zinc Etcher Expl anation Advance Directives and Living Will 11/02/2005 Power of Erp Analyst 11/02/2005 Care Teams Police Service Technician Relationship Specialty Start Date End Date Louie Kaye MD [address] [phone] PCP - General Family Medicine 05/20/21 documented as of this encounter
--- OUTSIDE RECORDS SUMMARY | 2023-08-05 23:22 | External Medical Summary | Summary of Care ---
Author Name Unknown Organization [facility] Address [address] [place] [facility] [place] [address] Phone [phone] Care Team Providers Care Mortgage Loan Processor Name Role Phone Héctor Johnson MD Primary Care Provider [phone] [phone] Reason for Visit * Reason Comments Urinary Tract Infection Symptoms Encounter Details Date Type Department Care Team (Late st Contact Info) Description 05/31/2023 11:40 AM EST Office Visit [facility] [address] [phone] Héctor Johnson MD [address] [phone] Acute cystitis without hematuria*; Urinary frequency; Right lower quadrant abdominal pain; Type 2 diabetes mellitus with hemoglobin A1c goal of less than 8.0% ([facility]) Allergies Active Allergy Reactions Criticality Noted Date Comments Adhesive Tape Rash 04/22/2014 documented as of this encounter (statuses as of 05/31/2023) Medications Medication Sig Dispensed Refills Start Date End Date Status ASPIRIN 81 MG PO TABSIndications:DM type 2, goal A1c below 7 ONE DAILY 30 Tab 5 04/01/2011 Active Cranberry 1000 MG Capsule Start: 01/13/19 9:00:00 EDT, PO, Daily 0 01/13/2019 Active Apple Cider Vinegar 188 MG CAPS Start: 01/13/19 14:02:00 EDT, Apple cider vinegar, PO, bid 0 01/13/2019 Active Lancets (ONETOUCH DELICA PLUS [id number]) MISCIndications:Type 2 diabetes mellitus with hemoglobin A1c goal of less than 8.0% (HCC) Use to check blood sugar up to 3 times per day E11.9 100 Each 11 01/17/2020 Active Pen [place] 32G X 4 MMIndications:Type 2 diabetes mellitus [...] on tongue as needed. 0 05/15/2021 Active L2CTouch Verio In Vitro Strip (Glucose Blood)Indications:Ty pe [...] suspected opioid overdose. Seek immediate medical attention. [email or web address] 1 Each 3 03/01/2023 Active Additional Information [...] a week. 6 mL 1 05/30/2023 Active Nitrofurantoin Monohyd Macro 100 MG Oral Capsule (Macrobid)Indication s:Acute cystitis without hematuria Take 1 Capsule by mouth in the morning and 1 Capsule before bedtime. Do all this for 7 days. With food until gone. 14 Capsule 0 05/31/2023 4 Active documented as of this encounter (statuses as of 05/31/2023) Active Problems Problem Noted Date Diagnosed Date Chronic bilateral thoracic back pain 07/26/2022 Encounter for examination fo r normal comparison and control in clinical research program 01/03/2020 Overview: [employer] [place] [employer]: A Randomized Controlled Trial (Project # [id number]). The [employer] program provides food-insecure diabetics with healthy food for their entire household (2 meals/ day X 5 days/week). The program also provides education on food preparation, healthy living, and diabetes self management. The research measures the effects of the program on patient health and wellbeing. Subject will begin the FFF program December 2019. Contact Information: Icing Mixer: Dr. Palmer Anders ([phone]) CRC: Glory Arteaga ([phone]) RA: Chiara Laura ([phone]) Diagnosis changed due to Research Module. Go [...] as of this encounter (statuses as of 05/31/2023) Resolved Problems Problem Noted Date Diagnosed Date [...] malignant neoplasm of cervix 01/16/2007 06/08/2010 Overview: [facility]?eva32--OM.Grill.[facility] [place] , had post Fu and pap [...] as of this encounter (statuses as of 05/31/2023) Immunizations Name Administration Dates Next Due COVID-19 [...] 15 Q uit: 05/30/1997 Smokeless Tobacco: Never Tobacco Cessation:Counseling Given: Not Answered Alcohol Use Standard Drinks/Week Comments Yes 0 [...] on file documented as of this encounter Last Filed Vital Signs Vital Sign Reading Time Taken Comments Blood Pressure 118/66 05/31/2023 12:12 PM EST Pulse 90 05/31/2023 12:12 PM EST Temperature 36.7 C (98 F) 05/31/2023 12:12 PM EST Respiratory Rate 16 05/31/2023 12:12 PM EST Oxygen Saturation 96% 05/31/2023 12:12 PM EST Inhaled Oxygen Concentration - - Weight 85.3 kg (188 lb 1.6 oz) 05/31/2023 12:12 PM EST Height 167.6 cm (5' 6") 05/31/2023 12:12 PM EST Body Mass Index 30.36 05/31/2023 12:12 PM EST documented in this encounter Progress Notes * Héctor Johnson MD - 05/31/2023 12:25 PM EST Images from the original note were not included. History of Present Illness Miguel Manuel is a 57 year old female that presents for Urinary Tract Infection Symptoms Urinary symtoms started 2 weeks ago. Improved on azo, worse after stopping. Dysuria, frequency. Last UTI in February. Working 12-16 hour shifts at [employer]; 12 is okay, but at 16 hours seems to be too much for her. Gets UTIs or sick afterwards. Also getting pain in RLQ intermittently when bending over, twisting, etc. Hx 2 deliveries,plus abdominal hernia surgery with mesh, thinks around 1998 then after 2005. Physical Exam Vitals: 05/31/23 1212 Temp: 36.7 C (98 F) Pulse: 90 Resp: 16 SpO2: 96% BP: 118/66 BMI: 30.37 Physical Exam Constitutional: General: She is not in acute distress. Appearance: She is normal weight. She is not ill-appearing. Abdominal: General: There is no distension. Palpations: There is no mass. Tenderness: There is no abdominal tenderness. There is no right CVA tenderness, left CVA tenderness, guarding or rebound. Hernia: No hernia is present. Comments: No tenderness or bulge with abdominal wall activation I have reviewed the following results: Results for orders placed or performed in visit on 05/31/23 URINALYSIS, POINT OF CARE (ENTER/EDIT) Result Value Ref Range Color, Urine Light Yellow Yellow or Light Yellow Clarity, Urine Turbid Clear Glucose, Urine 500 Negative mg/dL Bilirubin, Urine Negative Negative Ketone, Urine Negative Negative mg/dL Specific Greenleaf, Urine 1.020 1.003 - 1.030 Blood, Urine Negative Negative pH, Urine 7.5 5.0 - 7.5 units Protein, Urine Negative Negative mg/dL Urobilinogen, Urine 1.0 0.2 - 1.0 mg/dL Nitrite, Urine Positive Negative Esterase, Urine Trace Negative *Note: Due to a large number of results and/or encounters for the requested time period, some results have not been displayed. A complete set of results can be found in Results Review. Assessment and Plan Acute cystitis without hematuria Simple cystitis- return precautions given for worsening/ c/f pyelo. Encouraged great hydration, urination after sex, and always to wipe front to back. Avoid tight fitting clothing until symptoms totally resolved. - Nitrofurantoin Monohyd Macro 100 MG Oral Capsule (Macrobid); Take 1 Capsule by mouth in the morning and 1 Capsule before bedtime. Do all this for 7 days. With food until gone. Urinary frequency - URINALYSIS, POINT OF CARE (ENTER/EDIT) Right lower quadrant abdominal pain Question adhesions vs mesh. Ultrasound if persistent. Recent CT w/o any radiopaque cause for pain. Wrap-Up Time: I spent a total of 20-29 minutes (exact time 24 mins) on the date of service in preparation, delivery, and documentation of the care provided to Miguel Manuel excluding any time spent in the performance of separately billed services. * Emily Jesus NeuroPace - 05/31/2023 12:09 PM EST Chief Complaint Patient presents with Urinary Tract Infection Symptoms Pt complaining of urinary frequency and pressure for over a week. Pt tried AZO which helped but then would come back. Pt reports Tuesday she was very fatigued, nauseated and had a fever. Pt was not able to drive home from work. Pt reports she is till running a fever at night. documented in this encounter Plan of Treatment Upcoming Encounters Date Type Department Care Team (Late st Contact Info) Description 02/01/2024 10:00 AM EDT Office Visit [facility] [place] [address] [phone] Héctor Johnson MD [address] [...] Procedure Name Priority Date/Time Associated Diagnosis Comments URINALYSIS, POINT OF CARE (ENTER/EDIT) Routine 05/31/2023 Urinary frequency documented in this encounter Results * URINALYSIS, POINT OF CARE (ENTER/EDIT) (05/31/2023) Color, Urine Light Yellow Yellow or Light Yellow Clarity, Urine Turbid Clear Glucose, Urine 500 Negative mg/dL Bilirubin, Urine Negative Negative Ketone, Urine Negative Negative mg/dL Specific Greenleaf, Urine 1.020 1.003 - 1.030 Blood, Urine Negative Negative pH, Urine 7.5 5.0 - 7.5 units Protein, Urine Negative Negative mg/dL Urobilinogen, Urine 1.0 0.2 - 1.0 mg/dL Nitrite, Urine Positive Negative Esterase, Urine Trace Negative Urine 05/31/2023 Héctor Johnson MD LAB POINT OF CARE TEST ENTER/EDIT ORDERABLES documented in this encounter Visit Diagnoses Diagnosis Acute cystitis without hematuria- Primary Acute cystitis Urinary frequency Right lower quadrant abdominal pain Abdominal pain, right lower quadrant Type 2 diabetes mellitus with hemoglobin A1c goal of less than 8.0% ([facility]) documented in this encounter Advance Directives Documents on File Type Date Recorded Patient Storage Receipt Poster Expl anation Advance Directives and Living Will 11/02/2005 Power of Medical Record Retrieval Specialist 11/02/2005 Care Teams Mortgage Loan Processor Relationship Specialty Start Date End Date Héctor Johnson MD [address] [place] [id number] PCP - General Family Medicine 05/20/21 documented as of this encounter
--- OUTSIDE RECORDS SUMMARY | 2023-08-05 23:22 | External Medical Summary | Summary of Care ---
Author Name Unknown Organization [facility] Address [address] [place] [address] Phone [phone] Care Team Providers Care Window Shade Ring Coverer Name Role Phone Héctor Johnson MD Primary Care Provider [phone] Encounter Details Date Type Department Care Team (Late st Contact Info) Description [facility] [address] [place] [phone] Héctor Johnson MD [address] [facility] [address] [place] [address] Allergies Active Allergy Reactions Criticality Noted [...] 0 01/13/2019 Active Lancets (ONETOUCH DELICA PLUS [id number]) MISCIndications:Type 2 diabetes mellitus with hemoglobin A1c goal of less than 8.0% (HCC) Use to check blood sugar up to 3 times per day E11.9 100 Each 11 01/17/2020 Active Pen [place] 32G X 4 MMIndications:Type 2 diabetes mellitus [...] suspected opioid overdose. Seek immediate medical attention. [email or web address] 1 Each 3 03/01/2023 Active Additional Information [...] clinical research program 01/03/2020 Overview: [employer]: A Randomized Controlled Trial (Project # [id number]). The [employer] program provides food-insecure diabetics with healthy food for their entire household (2 meals/ day X 5 days/week). The program also provides education on food preparation, healthy living, and diabetes self management. The research measures the effects of the program on patient health and wellbeing. Subject will begin the FFF program December 2019. Contact Information: Singer Back Tender: Dr. Palmer Anders ([phone]) CRC: Glory Arteaga ([phone]) RA: Chiara Laura ([phone]) Diagnosis changed due to Research Module. Go [...] On prozac, was inc to 30 mg [id number].Still.,wean 04/18/2007 Screening for malignant neoplasm of cervix 01/16/2007 06/08/2010 Overview: PAP--?fvq21--[place].Grill.----is [facility]-- Del , had post Fu [...] mRNA, LNP-s, No Pre serve, 2-Dose Series ([employer]) 05/01/2021 Hepatitis B, 20+ yrs 11/28/1995,07/28/1994,05/30 PPD [...] Pt wants to see Dr. Coy at [facility]. Please place referral if agreeable. Thanks! documented in this encounter Plan of Treatment Upcoming Encounters Date Type Department Care Team (Late st Contact Info) Description 02/01/2024 10:00 AM EDT Office Visit [facility] [place] [address] [phone] Héctor Johnson MD [address] [phone] Scheduled Procedures Name Priority Associated Diagnoses Date/Ti [...] Documents on File Type Date Recorded Patient Precast Concrete Ironworker Expl anation Advance Directives and Living Will 11/02/2005 Power of Synchronous Motor Assembler 11/02/2005 Care Teams Window Shade Ring Coverer Relationship Specialty Start Date End Date Héctor Johnson MD [address] [id number] PCP - General Family Medicine 05/20/21 documented as of this encounter
--- OUTSIDE RECORDS SUMMARY | 2023-08-05 23:22 | External Medical Summary | Summary of Care ---
Author Name Unknown Organization [facility] Address [address] [place] [address] Phone [phone] Care Team Providers Care Ratchet Setter Name Role Phone Héctor Johnson MD Primary Care Provider [phone] [phone] Encounter Details Date Type Department Care Team (Late st Contact Info) Description 07/11/2023 Orders Only [facility] [address] [place] [id number] Héctor Johnson MD [address] [address] Allergies Active Allergy Reactions Criticality Noted Date Comments Adhesive Tape Rash 04/22/2014 documented as of this encounter (statuses as of 07/11/2023) Medications Medication Sig Dispensed Refills Start Date End Date Status ASPIRIN 81 MG PO TABSIndications:DM type 2, goal A1c below 7 ONE DAILY 30 Tab 5 04/01/2011 Active Cranberry 1000 MG Capsule Start: 01/13/19 9:00:00 EDT, PO, Daily 0 01/13/2019 Active Apple Cider Vinegar 188 MG CAPS Start: 01/13/19 14:02:00 EDT, Apple cider vinegar, PO, bid 0 01/13/2019 Active Lancets (ONETOUCH DELICA PLUS [id number]) MISCIndications:Type 2 diabetes mellitus with hemoglobin A1c goal of less than 8.0% (HCC) Use to check blood sugar up to 3 times per day E11.9 100 Each 11 01/17/2020 Active Pen Lynn 32G X 4 MMIndications:Type 2 diabetes mellitus [...] suspected opioid overdose. Seek immediate medical attention. [email or web address]://[email or web address]?[email or web address] 1 Each 3 03/01/2023 Active Additional Information [...] as of this encounter (statuses as of 07/11/2023) Active Problems Problem Noted Date Diagnosed Date Chronic bilateral thoracic back pain 07/26/2022 Encounter for examination fo r normal comparison and control in clinical research program 01/03/2020 Overview: [employer]: A Randomized Controlled Trial (Project # [id number]). The [employer] program provides food-insecure diabetics with healthy food for their entire household (2 meals/ day X 5 days/week). The program also provides education on food preparation, healthy living, and diabetes self management. The research measures the effects of the program on patient health and wellbeing. Subject will begin the FFF program December 2019. Contact Information: Membership Correspondent: Dr. Palmer Anders ([phone]) CRC: Glory Arteaga ([phone]) RA: Chiara Laura ([phone]) Diagnosis changed due to Research Module. Go [...] as of this encounter (statuses as of 07/11/2023) Resolved Problems Problem Noted Date Diagnosed Date [...] the gallbladder. 3. Nonobstructive right renal calculus. Jan08- neg H pylori, nmlamylase/lipase, LFT ex ast/alt [...] On prozac, was inc to 30 mg [id number].Still.,wean 04/18/2007 Screening for malignant neoplasm of cervix 01/16/2007 06/08/2010 Overview: PAP--?bzq81--CP.Grill.----is [facility] DrGrill-- Del , had post Fu and [...] as of this encounter (statuses as of 07/11/2023) Immunizations Name Administration Dates Next Due COVID-19 mRNA, LNP-s, No Pre serve, 2-Dose Series ([employer]) 05/01/2021 Hepatitis B, 20+ yrs 11/28/1995,07/28/1994,05/30 PPD [...] Description 02/01/2024 10:00 AM EDT Office Visit [facility] [place] [address] [address] Héctor Johnson MD [...] 02/22/2022, Additional history exists Mammogram 08/26/2023 08/25/2022, 2 09/2020, 11/28/2017, Additional history exists Albumin/Creatinine Ratio 02/03/2024 023, 02/22/2022, 11/29/2018, Additional history exists B-12 02/03/2024 02/02/2023, 01/29, 01/12/2021, Additional history exists TSH 02/03/2024 02/02/2023, 01/29, 01/12/2021, Additional history exists GFR 03/24/2024 03/24/2023, 1007/2022, 02/02/2023, Additional history exists Diabetic Eye Exam 07/11/2024 06/27/2023, , 10/04/2018, Additional history exists PAP [...] Procedure Name Priority Date/Time Associated Diagnosis Comments DIABETIC EYE EXAM Routine 06/27/2023 documented in this encounter Results * DIABETIC EYE EXAM (06/27/2023) 06/27/2023 History Per Patient OTHER OUTSIDE LAB (SEE SCANNED REPORT) documented in this encounter Advance Directives Documents on File Type Date Recorded 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
--- OUTSIDE RECORDS SUMMARY | 2023-08-05 23:23 | External Medical Summary ---
Author Name Unknown Address Unknown Organization K1F:[facility] [place] [address] Laboratory Report Ordering Provider Test Date Status MIGUEL SIMENTAL 03/24/2023 20:16:37 Final Observation Date Value Abnormality Reference (Units ) Status RBC, Urine 03/24/2023 20:16:37 50+ Abnormal 0-2 (/HPF) Final WBC, Urine 03/24/2023 20:16:37 50+ Abnormal 0-2 (/HPF) Final Bacteria [#/area] in Urine sediment by Microscopy high power field 03/24/2023 20:16:37 151-200 Abnormal 0-25 (/HPF) Final Performing Location [facility] - [address] [place] [address]
--- OUTSIDE RECORDS SUMMARY | 2023-08-05 23:23 | External Medical Summary | Summary of Care ---
Author Name Unknown Organization [facility] Address [address] [place] [address] Phone [phone] Care Team Providers Care Engineering And Operations Director Name Role Phone Héctor Johnson MD Primary Care Provider [phone] [phone] Reason for Visit * Reason Onset Date Comments Urinary Tract Infection Symptoms 03/28/2023 Encounter Details Date Type Department Care Team (Late st Contact Info) Description 03/28/2023 Telephone [facility] Emergency Department ([place]) [address] [place] [address] Soraya Gomez, [address] [place] [id number] Urinary Tract Infection Symptoms Allergies Active Allergy Reactions Criticality Noted Date Comments Adhesive Tape Rash 04/22/2014 documented as of this encounter (statuses as of 03/28/2023) Medications Medication Sig Dispensed Refills Start Date End Date Status ASPIRIN 81 MG PO TABSIndications:DM type 2, goal A1c below 7 ONE DAILY 30 Tab 5 04/01/2011 Active Cranberry 1000 MG Capsule Start: 01/13/19 9:00:00 EDT, PO, Daily 0 01/13/2019 Active Apple Cider Vinegar 188 MG CAPS Start: 01/13/19 14:02:00 EDT, Apple cider vinegar, PO, bid 0 01/13/2019 Active Lancets (ONETOUCH DELICA PLUS [id number]) MISCIndications:Type 2 diabetes mellitus with hemoglobin A1c goal of less than 8.0% (HCC) Use to check blood sugar up to 3 times per day E11.9 100 Each 11 01/17/2020 Active Pen [place]inault 32G X 4 MMIndications:Type 2 diabetes mellitus [...] Oral Tablet (Ibuprofen-diphenhyd rAMINE Cit) Take 2 Tabs by mouth at bedtime as needed. 0 Active Ondansetron 4 MG Oral Tablet Disintegrating (Zofran) Place 1 Tablet on tongue as needed. 0 05/15/2021 Active OneTouch Verio In Vitro Strip (Glucose Blood)Indications:Ty pe 2 diabetes mellitus with hemoglobin A1c goal of less than 8.0% (HCC) Test blood sugar 2 to 3 times a day and as needed. E11.9 100 Strip 11 08/19/2021 Active B-12-SL 1000 MCG Sublingual Tablet Sublingual (Cyanocobalamin)Ilda cations:B12 deficiency Place under the tongue 1,000 mcg daily . 90 Tablet 3 03/18/2022 Active Ozempic (1 MG/DOSE) 4 MG/3ML Subcutaneous [...] 4 PILLS/WEEK 6 Tablet 2 10/23/2022 Active Tresiba FlexTouch 100 UNIT/ML Subcutaneous Solution Pen-injector (Insulin Degludec)Indications :Type 2 diabetes mellitus with hemoglobin A1c goal of less than 8.0% (HCC) INJECT 40 UNITS UNDER THE SKIN DAILY 15 mL 5 11/16/2022 Active Omeprazole 40 MG Oral Capsule Delayed Release (PriLOSEC)Indication s:Gastroesophageal reflux disease without esophagitis TAKE 1 CAPSULE BY MOUTH DAILY 1 HOUR BEFORE THE FIRST MEAL OF THE DAY 90 Capsule 1 01/21/2023 Active tiZANidine HCl 4 MG Oral CapsuleIndications:S prain lumbar region, initial encounter,Acute left-sided low back pain with left-sided sciatica Take 1 Capsule by mouth 2 times a day as needed for Muscle spasms. hold for sedation 28 Capsule 0 01/26/2023 Active Levothyroxine Sodium 150 MCG Oral Tablet [...] THE MORNING 90 Tablet 3 02/23/2023 Active oxyCODONE HCl 5 MG Oral Tablet (Oxy IR) Take 1 Tablet by mouth every 8 hours as needed for Pain, Breakthrough or Pain, Severe for up to 10 doses. 10 Tablet 0 03/01/2023 Active Naloxone HCl 4 MG/0.1ML Nasal Liquid (Narcan Nasal) Administer 1 spray into 1 nostril for suspected opioid overdose. Seek immediate medical attention. [email or web address]://[email or web address] [email or web address]/watch?v=[email or web address] 1 Each 3 03/01/2023 Active Alendronate Sodium 70 MG Oral Tablet (Fosamax) TAKE 1 TAB BY MOUTH ONCE A WEEK W/ 8OZ. WATER 30MIN BEFORE 1ST MEAL OF DAY. REMAIN UPRIGHT X30MIN 12 Tablet 3 03/21/2023 Active Cephalexin 500 MG Oral Capsule Take 1 Capsule by mouth in the morning and 1 Capsule at noon and 1 Capsule before bedtime. Do all this for 7 days. 21 Capsule 0 03/24/2023 3 Active documented as of this encounter (statuses as of 03/28/2023) Active Problems Problem Noted Date Diagnosed Date Chronic bilateral thoracic back pain 07/26/2022 Recurrent major depressive disorder 11/09/2021 Encounter for examination fo r normal comparison and control in clinical research program 01/03/2020 Overview: [employer]: A Randomized Controlled Trial (Project # [id number]). The [employer] program provides food-insecure diabetics with healthy food for their entire household (2 meals/ day X 5 days/week). The program also provides education on food preparation, healthy living, and diabetes self management. The research measures the effects of the program on patient health and wellbeing. Subject will begin the FFF program December 2019. Contact Information: Fundraising Manager: Dr. Palmer Anders ([phone]) CRC: Glory Arteaga ([phone]) RA: Chiara Laura ([phone]) Diagnosis changed due to Research Module. Go [...] as of this encounter (statuses as of 03/28/2023) Resolved Problems Problem Noted Date Diagnosed Date [...] Overview: 02/09/2008_ better with PT. 12/22/2007_ MRI -nml-- evelio-Naprosyn try, not to be used w/Ibuprofen, some [...] On prozac, was inc to 30 mg [id number].Still.,wean 04/18/2007 Screening for malignant neoplasm of cervix 01/16/2007 06/08/2010 Overview: PAP--?gzx93--EW.Grill.----is [facility] DrGrill-- Del , had post Fu [...] as of this encounter (statuses as of 03/28/2023) Immunizations Name Administration Dates Next Due COVID-19 mRNA, LNP-s, No Pre serve, 2-Dose Series ([employer]) 05/01/2021 Hepatitis B, 20+ yrs 11/28/1995,07/28/1994,05/30 PPD 07/12/2016, 7,02/18/2009,2008,03/31/2006 Pneumococcal Conjugate Vacc, 13 Valent (Prevnar) 03/04/2015 SEASONAL INFLUENZA, PF, 6 M & Above, IM , (FLULAVAL or FLUZONE) 03/16/2021,03/13/2020,03/26/2019,2017,03/25/2017 Seasonal Influenza, Quadriva lent, No Preserve, [...] 10:00 AM EDT Office Visit [facility] [place] [address] [phone] Héctor Johnson MD [address] [phone] Scheduled Procedures Name Priority Associated Diagnoses Date/Ti me COLONOSCOPY FLEXIBLE PROXIMA L DIAGNOSTIC Recall Family history of colon cancer Health Maintenance Due Date Last Done Comments HPV/Co-Test 1997 DTaP,Tdap,and Td Vaccines (2 - Td or Tdap) 05/04/2017 05/04/2007 Zoster Vaccines (1 of 2) 2017 DIABETES-EYE EXAM 03/23/2022 03/23/2021, , 11/17/2016, Additional history exists COVID-19 Vaccine (2 - 2022- season) 2023 05/01/2021 Influenza Vaccine (FLU shot) (#1) 2023 03/25/2022, 03/16/2021, 03/13/2020, Additional history exists Cervical Cancer Screening 03/10/2023 Pap Smear 03/10/2023 [...] Discontinued 07/09/2022, 07/09/2022 Colorectal Cancer Screening Discontinued Fecal Occult Blood Test Discontinued GARDASIL-HPV IMMUNIZATION SERIES Aged Out No longer eligible based on patient's age to complete this topic MENINGOCOCCAL (MENACTRA/MENVEO) Aged Out No longer eligible based on patient's age to complete this topic Sigmoidoscopy Discontinued documented as of this encounter Medical Devices Not on filedocumented as of this encounter Advance Directives Documents on File Type Date Recorded 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
--- OUTSIDE RECORDS SUMMARY | 2023-08-05 23:23 | External Medical Summary ---
Author Name Unknown Address Unknown Organization K1F:[facility] - [address] [place] [address] Laboratory Report Ordering Provider Test Date Status MIGUEL SIMENTAL 03/24/2023 18:44:52 Final Observation Date Value Abnormality Reference (Units ) Status Lipase 03/24/2023 18:44:52 29 13-60 (U/L ) Final Performing Location [facility] - [address] [place] [id number]
--- OUTSIDE RECORDS SUMMARY | 2023-08-05 23:23 | External Medical Summary | Summary of Care ---
Author Name Unknown Organization [facility] Address [address] [place] [address] Phone [phone] Care Team Providers Care Ncr Operator Name Role Phone Héctor Johnson MD Primary Care Provider [phone] Reason for Visit * Reason Onset Date Comments Acute Muscle cramps in ankles, calf muscle, thigh, hips and back up into neck. Sometimes when bending over, she gets a cramp in her stomach that takes her breath away. Was using tizanidine but all out. Now using flexeril prn with no relief. Sx x 1 yr, but recently worsening. Cramps happen daily. Medication Administration 03/31/2023 Flu an d/or Pneumo Inj Encounter Details Date Type Department Care Team (Late st Contact Info) Description 03/31/2023 4:20 PM EDT Office Visit [facility] [address] [facility] [place] [phone] Junaid Daigle MD [address] [place] [address] Need for prophylactic vaccination and inoculation against influenza*; Sprain lumbar region, initial encounter; Acute left-sided low back pain with left-sided sciatica; Urinary tract infection with hematuria, site unspecified; Type 2 diabetes mellitus with hemoglobin A1c goal of less than 8.0% ([facility]) Allergies Active Allergy Reactions Criticality Noted Date Comments Adhesive Tape Rash 04/22/2014 documented as of this encounter (statuses as of 04/02/2023) Medications Medication Sig Dispensed Refills Start Date End Date Status ASPIRIN 81 MG PO TABSIndications:DM type 2, goal A1c below 7 ONE DAILY 30 Tab 5 1 Active Cranberry 1000 MG Capsule Start: 01/13/19 9:00:00 EDT, PO, Daily 0 9 Active Apple Cider Vinegar 188 MG CAPS Start: 01/13/19 14:02:00 EDT, Apple cider vinegar, PO, bid 0 9 Active Lancets (ONETOUCH DELICA PLUS [id number]) MISCIndications:Typ e 2 diabetes mellitus with hemoglobin A1c goal of less than 8.0% (HCC) Use to check blood sugar up to 3 times per day E11.9 100 Each 11 0 Active Pen [place] 32G X 4 MMIndications:Type 2 diabetes mellitus [...] Oral Tablet (Ibuprofen-diphenhy drAMINE Cit) Take 2 Tabs by mouth at bedtime as needed. 0 Active Ondansetron 4 MG Oral Tablet Disintegrating (Zofran) Place 1 Tablet on tongue as needed. 0 1 Active OneTouch Verio In Vitro Strip (Glucose Blood)Indications:T ype 2 diabetes mellitus with hemoglobin A1c goal of less than 8.0% (HCC) Test blood sugar 2 to 3 times a day and as needed. E11.9 100 Strip 11 2 Active B-12-SL 1000 MCG Sublingual Tablet Sublingual (Cyanocobalamin)Ind ications:B12 deficiency Place under the tongue 1,000 mcg daily . 90 Tablet 3 2 Active Additional Information Patient not taking.Reported on 03/31/2023 Ozempic (1 MG/DOSE) 4 MG/3ML Subcutaneous Solution Pen-injector (Semaglutide (1 MG/DOSE))Indication s:Dyslipidemia, goal LDL below 100 INJECT 1 MG UNDER THE SKIN WEEKLY 3 mL 5 3 Active SUMAtriptan Succinate 100 MG Oral TabletIndications:M igraine with aura ONE AT ONSET OF HEADACHE; MAY REPEAT DOSE IN TWO HOURS IF NEEDED; NO MORE THAN 2 PILLS/24 HRS OR 4 PILLS/WEEK 6 Tablet 2 3 Active Tresiba FlexTouch 100 UNIT/ML Subcutaneous Solution Pen-injector (Insulin Degludec)Indication s:Type 2 diabetes mellitus with hemoglobin A1c goal of less than 8.0% (HCC) INJECT 40 UNITS UNDER THE SKIN DAILY 15 mL 5 3 Active Additional Information Patient taking differently: 38 units, Reported on 03/31/2023 Omeprazole 40 MG Oral Capsule Delayed Release (PriLOSEC)Indicatio ns:Gastroesophageal reflux disease without esophagitis TAKE 1 CAPSULE BY MOUTH DAILY 1 HOUR BEFORE THE FIRST MEAL OF THE DAY 90 Capsule 3 Active Levothyroxine Sodium 150 MCG Oral [...] THE MORNING 90 Tablet 3 3 Active oxyCODONE HCl 5 MG Oral Tablet (Oxy IR) Take 1 Tablet by mouth every 8 hours as needed for Pain, Breakthrough or Pain, Severe for up to 10 doses. 10 Tablet 0 3 Active Additional Information Patient not taking.Reported on 03/31/2023 Naloxone HCl 4 MG/0.1ML Nasal Liquid (Narcan Nasal) Administer 1 spray into 1 nostril for suspected opioid overdose. Seek immediate medical attention. [email or web address] 1 Each 3 3 Active Alendronate Sodium 70 MG Oral Tablet [...] for sedation 28 Capsule 1 3 Active tiZANidine HCl 4 MG Oral CapsuleIndications: Sprain lumbar region, initial encounter,Acute left-sided low back pain with left-sided sciatica Take 1 Capsule by mouth 2 times a day as needed for Muscle spasms. hold for sedation 28 Capsule 0 3 03/31/20 23 Discontinue d(Refill) Cephalexin 500 MG Oral Capsule Take 1 Capsule by mouth in the morning and 1 Capsule at noon and 1 Capsule before bedtime. Do all this for 7 days. 21 Capsule 0 3 03/31/20 23 documented as of this encounter (statuses as of 04/02/2023) Active Problems Problem Noted Date Diagnosed Date Chronic bilateral thoracic back pain 07/26/2022 Recurrent major depressive disorder 11/09/2021 Encounter for examination fo r normal comparison and control in clinical research program 01/03/2020 Overview: PlatformQ: A Randomized Controlled Trial (Project # [id number]). The PlatformQ program provides food-insecure diabetics with healthy food for their entire household (2 meals/ day X 5 days/week). The program also provides education on food preparation, healthy living, and diabetes self management. The research measures the effects of the program on patient health and wellbeing. Subject will begin the FFF program December 2019. Contact Information: Residential Tech: Dr. Palmer Anders ([phone]) CRC: Glory Arteaga ([phone]) RA: Chiara Laura ([phone]) Diagnosis changed due to Research Module. Go [...] as of this encounter (statuses as of 04/02/2023) Resolved Problems Problem Noted Date Diagnosed Date [...] On prozac, was inc to 30 mg [id number].Still.,wean 04/18/2007 Screening for malignant neoplasm of cervix 01/16/2007 06/08/2010 Overview: PAP--?ack88--ON.Grill.----is [facility]-- [place] , had post Fu and pap [...] as of this encounter (statuses as of 04/02/2023) Immunizations Name Administration Dates Next Due COVID-19 mRNA, LNP-s, No Pre serve, 2-Dose Series (Tweetwall) 05/01/2021 Hepatitis B, 20+ yrs 11/28/1995,07/28/1994,05/30 PPD 07/12/2016, 7,02/18/2009,2008,03/31/2006 Pneumococcal Conjugate Vacc, 13 Valent (Prevnar) 03/04/2015 SEASONAL INFLUENZA, PF, 6 M & Above, IM , (FLULAVAL or FLUZONE) 03/31/2023,03/16/2021,03/13/2020,2018,02/27/2018,03/25/2017 Seasonal Influenza, Quadriva lent, No Preserve, IM 03/25/2022 Seasonal Influenza, Split, I IV3, With Preserve, Inj 03/25/2016,02/10/2014,03/28/2013,2011,03/12/2011,02/16/2010,02/18/2009,1 ,04/18/2007,04/12/2006 TDAP (age 11 and older)(Adacel) 05/04/2007 documented as of this encounter Social History Tobacco Use Types Packs/Day Years Used Date Smoking Tobacco: Former Cigarettes 0.5 15 Q uit: 05/30/1997 Smokeless Tobacco: Never Tobacco Cessation:Counseling Given: No Alcohol Use Standard Drinks/Week Comments Yes 0 [...] Sign Reading Time Taken Comments Blood Pressure 102/58 03/31/2023 4:25 PM EDT Pulse 100 03/31/2023 4:25 PM EDT Temperature 36.2 C (97.1 F) 03/31/2023 4:25 PM ED T Respiratory Rate 15 03/31/2023 4:25 PM EDT Oxygen Saturation 96% 03/31/2023 4:25 PM EDT Inhaled Oxygen Concentration - - Weight 85.3 kg (188 lb) 03/31/2023 4:25 PM EDT Height - - Body Mass Index 30.34 03/24/2023 6:15 PM EDT documented in this encounter Progress Notes * Pema Serra LPN - 03/31/2023 5:03 PM EDT PRE - ADMINISTRATION DOCUMENTATION Are you experiencing any cold symptoms or fever? No Have you had Guillain-[place] Syndrome (an illness that causes paralysis) within the last 6 weeks? No Have you had the flu shot in the past? YES Have you ever had a reaction to the flu shot? No Pema Serra LPN, 03/31/2023 5:03 PM Immunization Administration Documentation Time Out Procedure Performed: Yes Patient Identified (Ask Name/Date of ): Yes Does the patient have a fever greater than 101 degrees today? No Patient allergic to latex? No VFC Stock: No Immunization(s) verified: Yes, Immunization Name: Flu, VIS Sheet(s) given: Yes Verified Side and Site: Yes Verified Shot(s) with Parent(s)/Patient: Yes * Junaid Daigle MD - 03/31/2023 4:29 PM EDT Subjective: Miguel Manuel is a 57 year old female Chief Complaint Patient presents with Acute Muscle cramps in ankles, calf muscle, thigh, hips and back up into neck. Sometimes when bending over, she gets a cramp in her stomach that takes her breath away. Was using tizanidine but all out. Nowusing flexeril prn with no relief. Sx x 1 yr, but recently worsening. Cramps happen daily. Medication Administration Flu and/or Pneumo Inj HPI: Miguel Manuel is a 57 year old female who presents with a chief complaint of Acute (Muscle cramps in ankles, calf muscle, thigh, hips and back up into neck. Sometimes when bending over, she gets a cramp in her stomach that takes her breath away. Was using tizanidine but all out. Now using flexerilprn with no relief. Sx x 1 yr, but recently worsening. Cramps happen daily. ) and Medication Administration (Flu and/or Pneumo Inj) Whole body cramps for the past year Has a bladder infection, no burning no pain, frequency, currently taking cephalexin and symptoms are improving Nasuea, no emesis today first time Thinking about food makes her nauseous. 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 [facility] Cramps in LE, ankles and works way up, helps to stretch Will awaken her at night Reviewed recent lab Requests refill of muscle relaxer, cyclobenzaprine not much help Component Latest Ref Rng 03/01/2023 03/24/2023 BUN 6 - 20 mg/dL 26 (H) 32 (H) Creatinine 0.5 - 1.0 mg/dL 0.7 0.8 Estimated Glomerular Filtration Rate >=60 mL/min >90 86 Sodium 135 - 146 mmol/L 138 135 Potassium 3.5 - 5.1 mmol/L 4.6 4.2 Chloride 98 - 107 mmol/L 103 98 CO2 22 - 32 mmol/L 28 22 Anion Gap 7 - 15 mmol/L 7 15 Glucose 70 - 120 mg/dL 117 120 Albumin 3.8 - 5.0 g/dL 3.7 (L) 4.2 AST 10 - 35 U/L 22 25 Alkaline Phosphatase 35 - 130 U/L 68 84 Bilirubin, Total <=1.2 mg/dL 0.2 0.6 Calcium 8.4 - 10.2 mg/dL 8.7 9.7 Protein 6.0 - 8.3 g/dL 6.0 6.8 ALT 10 - 35 U/L 15 16 WBC 4.00 - 10.80 K/uL 3.43 (L) 6.32 Neutrophils % 40.0 - 75.0 % 53.9 67.7 Lymphocytes % 18.0 - 42.0 % 36.4 24.1 Monocytes % 1.0 - 11.0 % 7.6 7.3 Eosinophils % 0.0 - 6.0 % 1.2 0.3 Basophils % 0.0 - 2.0 % 0.3 0.3 Immature Granulocytes % 0.0 - 2.0 % 0.6 0.3 Absolute Neutrophils 1.80 - 7.70 K/uL 1.85 4.28 Absolute Lymphocytes 1.00 - 4.80 K/ul 1.25 1.52 Absolute Monocytes 0.00 - 1.10 K/uL 0.26 0.46 Absolute Eosinophils 0.00 - 0.70 K/uL 0.04 0.02 Absolute Basophils 0.00 - 0.20 K/uL 0.01 0.02 Absolute Immature Granulocytes 0.00 - 0.20 K/uL 0.02 0.02 Color, Urine Light Yellow, Yellow, Dark Yellow Yellow Yellow Clarity, Urine Clear Clear Cloudy ! Glucose, Urine Negative mg/dL >=1000 ! >=1000 ! Bilirubin, Urine Negative Negative Negative Ketone, Urine Negative mg/dL Negative Negative Specific [place], Urine 1.003 - 1.030 1.025 1.041 (H) Blood, Urine Negative Negative Large ! pH, Urine 5.0 - 7.5 Units 6.0 6.0 Protein, Urine Negative mg/dL Negative 30 ! Urobilinogen, Urine 0.2, 1.0 mg/dL 1.0 0.2 Nitrite, Urine Negative Negative Positive ! Esterase, Urine Negative Negative Large ! Comment, Urine -- WBC 4.00 - 10.80 K/uL 3.43 (L) 6.32 RBC 3.85 - 5.15 M/uL 3.38 3.87 HGB 12.0 - 15.3 g/dL 10.1 (L) 11.8 (L) HCT 36.0 - 45.2 % 31.3 (L) 34.4 (L) MCV 81.5 - 97.5 fL 92.6 88.9 MCH 27.0 - 34.0 pg 29.9 30.5 MCHC 32.0 - 36.0 g/dL 32.3 34.3 RDW 11.5 - 15.5 % 14.6 14.7 PLT 140 - 400 K/uL 172 222 MPV 6.6 - 11.1 fL 8.9 8.9 nRBCs <=0 /100 WBCs 0 0 RBC, Urine 0 - 2 /HPF 50+ ! WBC, Urine 0 - 2 /HPF 50+ ! Bacteria, Urine 0 - 25 /HPF 151-200 ! Troponin T, High Sensitivity <=14 ng/L 11 Troponin T, High Sensitivity 12 Lactate 0.4 - 2.0 mmol/L 2.4 (H) Lipase 13 - 60 U/L 29 Legend: (H) High (L) Low ! Abnormal Patient Active Problem List Diagnosis Code Acquired [...] goal of less than 8.0% ([facility]) E11.9 Gastroesophageal reflux disease without esophagitis K21.9 HTN, goal below 130/80 I10 Encounter for examination for normal comparison and control in clinical research program Z00.6 Recurrent major depressive disorder ([facility]) F33.9 Chronic bilateral thoracic back pain M54.6, G89.29 Current Outpatient Medications Medication Sig Dispense Refill ASPIRIN 81 MG PO TABS ONE DAILY 30 Tab 5 Cranberry 1000 MG Capsule Start: 01/13/19 9:00:00 EDT, PO, Daily Apple Cider Vinegar 188 MG CAPS Start: 01/13/19 14:02:00 EDT, Apple cider vinegar, PO, bid Ibuprofen 200 MG Oral Tablet (Motrin) Take 3 Tablets by mouth 2 times a day as needed. In the morning and possibly 400mg mid day if needed. Ondansetron 4 MG Oral Tablet Disintegrating (Zofran) Place 1 Tablet on tongue as needed. Ozempic (1 MG/DOSE) 4 MG/3ML Subcutaneous Solution Pen-injector (Semaglutide (1 MG/DOSE)) INJECT 1 MG UNDER THE SKIN WEEKLY 3 mL 5 SUMAtriptan Succinate 100 MG Oral Tablet ONE AT ONSET OF HEADACHE; MAY REPEAT DOSE IN TWO HOURS IF NEEDED; NO MORE THAN 2 PILLS/24 HRS OR 4 PILLS/WEEK 6 Tablet 2 Tresiba FlexTouch 100 UNIT/ML Subcutaneous Solution Pen-injector (Insulin Degludec) INJECT 40 UNITSUNDER THE SKIN DAILY (Patient taking differently: 38 units) 15 mL 5 Omeprazole 40 MG Oral Capsule Delayed Release [...] DAY IN THE MORNING 90 Tablet 3 Alendronate Sodium 70 MG Oral Tablet (Fosamax) TAKE 1 TAB BY MOUTH ONCE A WEEK W/ 8OZ. WATER 30MIN BEFORE 1ST MEAL OF DAY. REMAIN UPRIGHT X30MIN 12 Tablet 3 tiZANidine HCl 4 MG Oral Capsule Take 1 Capsule by mouth 2 times a day as needed for Muscle spasms.hold for sedation 28 Capsule 1 Lancets (Beaut[employer] DELICA PLUS [id number]) MIS Use to check blood sugar up to 3 times per day E11.9 100 Each 11 Pen [place] 32G X 4 MM Use as directed. For use with Tresiba insulin pen. 100 Each 3 Ibuprofen PM 200-38 MG Oral Tablet (Ibuprofen-diphenhydrAMINE Cit) Take 2 Tabs by mouth at bedtime as needed. (Patient not taking: Reported on 03/31/2023) [employer] In Vitro Strip (Glucose Blood) Test blood sugar 2 to 3 times a day and as needed. E11.9 100 Strip 11 B-12-SL 1000 MCG Sublingual Tablet Sublingual (Cyanocobalamin) Place under the tongue 1,000 mcg daily . (Patient not taking: Reported on 03/31/2023) 90 Tablet 3 oxyCODONE HCl 5 MG Oral Tablet (Oxy IR) Take 1 Tablet by mouth every 8 hours as needed for Pain, Breakthrough or Pain, Severe for up to 10 doses. (Patient not taking: Reported on 03/31/2023) 10 Tablet0 Naloxone HCl 4 MG/0.1ML Nasal Liquid (Narcan Nasal) Administer 1 spray into 1 nostril for suspectedopioid overdose. Seek immediate medical attention. [email or web address] 1 Each 3 No current facility-administered medications for this visit. Review of patient's allergies indicates: Allergen Reactions Adhesive Tape Rash Past Medical History: Diagnosis Date Depression 11/02/2012 Depressive disorder, not elsewhere classified Diabetes (HCC) Diabetes mellitus complicating , antepartum 11/02/2005 Dyslipidemia, goal LDL below 100 01/17/2006 Gastroesophageal reflux disease without esophagitis 02/12/2016 HTN, goal below 140/90 01/03/2012 pt denies as of 03/18/21 Hypothyroidism Kidney stones Migraines Motion sickness Polyhydramnios, antepartum complication 10/06/2005 PONV (postoperative nausea and vomiting) Past Surgical History: Procedure Laterality Date ANESTHESIA FOR FAT LAYER REMOVAL 05/28/2007 partial panniculectomy DELIVERY x2 COLONOSCOPY, DIAGNOSTIC (RECTUM) N/A 07/09/2022 poor prep/recall 1 year/COLONOSCOPY FLEXIBLE PROXIMAL DIAGNOSTIC performed by Genoveva Bauer DO at ENDOSCOPY GE CYSTOSCOPY 01/08/2013 CYSTOSCOPY Right 10/20/2015 stent placed DILATION AND CURETTAGE (D&C) D&C, non OB INFORMATION nov hernioarhhaphy, with mesh LIGATE/CUT OVIDUCT(S) MISCELLANEOUS ORDER ([facility] ONLY) 05/30/2004 lipoma removal REMOVAL OF ABDOMINAL LESION endometriosis REMOVAL OF TONSILS, UNDER AGE 12 REPAIR INITIAL INGUINAL HERNIA REDUCIBLE AGE 5 OR MORE STAB PHLEB VARICOSE VEINS,1 EX Right 04/22/2014 STAB PHLEBECTOMY VARICOSE VEINS ONE EXTREMITY - performed by Palmer Guerrero MD at OR [facility] TENDON SHEATH INCISION, FINGER Right 03/24/2021 TRIGGER FINGER RELEASE performed by Franki Dick MD at OR [facility] UMBIL HERNIA REPAIR (INCARCERATED) AGE 5+YR 05/28/2007 Umbilical Herniorraphy, with mesh VEIN ABLATION EXTREMITY,ENDOVEN,1ST Right 04/22/2014 ENDOVENOUS RADIOFREQUENCY ABLATION THERAPY FIRST VEIN performed by Palmer Guerrero MD at OR [facility] Objective: The patient is a 57 year old female BP 102/58 | Pulse 100 | Temp 36.2 C (97.1 F) (Tympanic) | Resp 15 | Wt 85.3 kg (188 lb) | LMP 07/14/2010 | SpO2 96% | BMI 30.34 kg/m | BSA 1.99 m General: alert, healthy, well nourished, well developed, anxious, obese, restless, and smiling Neck: supple, no adenopathy, no bruits, thyroid normal size, non-tender, without nodularity, no stridor, non-tender, neck veins flat, trachea midline Heart: regular rate & rhythm, no murmur, no gallops, S-1 normal, and S-2 normal Lungs: chest symmetric with normal AP diameter, no chest deformities noted, no chest wall tenderness, lungs clear to auscultation Abdomen: abdomen soft, non-tender, normal bowel sounds, and no masses or organomegaly Extremities: less than 2 second capillary refill, no joint deformities, effusion, or inflammation Neuro Exam: alert & oriented x 3 with fluent speech, no focal motor/sensory deficits, gait normal, reflexes normal and symmetric Musculoskeletal: no significant abnormalities ASSESSMENT/PLAN: Need for prophylactic vaccination and inoculation against influenza (Primary) - INFLUENZA VACC, QUAD, PF, 6 MONTHS & UP, 0.5 ML, IM Sprain lumbar region, initial encounter - tiZANidine HCl 4 MG Oral Capsule; Take 1 Capsule by mouth 2 times a day as needed for Muscle spasms. hold for sedation Acute left-sided low back pain with left-sided sciatica - tiZANidine HCl 4 MG Oral Capsule; Take 1 Capsule by mouth 2 times a day as needed for Muscle spasms. hold for sedation Urinary tract infection with hematuria, site unspecified Type 2 diabetes mellitus with hemoglobin A1c goal of less than 8.0% ([facility]) Junaid Daigle MD [address] [address] documented in this encounter Nursing Notes * Colleen Garcia CMA - 03/31/2023 4:21 PM EDT Chief Complaint Patient presents with Acute Muscle cramps in ankles, calf muscle, thigh, hips and back up into neck. Sometimes when bending over, she gets a cramp in her stomach that takes her breath away. Was using tizanidine but all out. Nowusing flexeril prn with no relief. Sx x 1 yr, but recently worsening. Cramps happen daily. The tizanidine worked better for the cramps, would like refill if possible. documented in this encounter Plan of Treatment Upcoming Encounters Date Type Department Care Team (Late st Contact Info) Description 02/01/2024 10:00 AM EDT Office Visit [facility] [place] [address] [phone] Héctor Johnson MD [address] [id number] Scheduled Procedures Name Priority Associated Diagnoses Date/Ti [...] as of this encounter Visit Diagnoses Diagnosis Need for prophylactic vaccination and inoculation against influenza- Primary Sprain lumbar region, initial encounter Acute left-sided low back pain with left-sided sciatica Urinary tract infection with hematuria, site unspecified Type 2 diabetes mellitus with hemoglobin A1c goal of less than 8.0% ([facility]) documented in this encounter Advance Directives Documents on File Type Date 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
--- OUTSIDE RECORDS SUMMARY | 2023-08-05 23:23 | External Medical Summary ---
Author Name Unknown Address Unknown Organization K1F:[facility] - [address] [facility] [place] [address] Laboratory Report Ordering Provider Test Date Status MIGUEL SIMENTAL 03/24/2023 18:44:52 Final Observation Date Value Abnormality Reference (Units ) Status SYNC LEUKOCYTES IN BLOOD BY AUTOMATED COUNT 03/24/2023 18:44:52 6.32 4.00-10.80 (K/uL) Final Segs 03/24/2023 18:44:52 67.7 40.0-75.0 (%) Final Lymphs % 03/24/2023 18:44:52 24.1 18.0-42.0 (%) Final Monos 03/24/2023 18:44:52 7.3 1.0-11.0 (%) Final Eosinophils 03/24/2023 18:44:52 0.3 0.0-6.0 (%) Final Basos 03/24/2023 18:44:52 0.3 0.0-2.0 (%) Final Immature Granulocyte, Percent 03/24/2023 18:44:52 0.3 0.0-2.0 (%) Final Absolute Segs 03/24/2023 18:44:52 4.28 1.80-7.70 (K/uL) Final Lymphs, absolute 03/24/2023 18:44:52 1.52 1.00-4.80 (K/ul) Final Monos, Abs 03/24/2023 18:44:52 0.46 0.00-1.10 (K/uL) Final Eos, Abs 03/24/2023 18:44:52 0.02 0.00-0.70 (K/uL) Final Basos, Abs 03/24/2023 18:44:52 0.02 0.00-0.20 (K/uL) Final Immature Granulocytes, Number 03/24/2023 18:44:52 0.02 0.00-0.20 (K/uL) Final Performing Location [facility] - [address] [place] [address]
--- OUTSIDE RECORDS SUMMARY | 2023-08-05 23:23 | External Medical Summary | Summary of Care ---
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 ([facility]) [address] [place] [address] Tato Macedo, [address] [place] [address] Closed fracture of one rib of right side, initial encounter (Primary Dx); Syncope Allergies Active Allergy Reactions Severity Noted Date Comments Adhesive Tape Rash 04/22/2014 documented as of this encounter (statuses as of 03/02/2023) Medications Medication Sig Dispensed Refills Start Date End Date Status ASPIRIN 81 MG PO TABSIndications:DM type 2, goal A1c below 7 ONE DAILY 30 Tab 5 04/01/2011 Active Cranberry 1000 MG Capsule Start: 01/13/19 9:00:00 EDT, PO, Daily 0 01/13/2019 Active Apple Cider Vinegar 188 MG CAPS Start: 01/13/19 14:02:00 EDT, Apple cider vinegar, PO, bid 0 01/13/2019 Active Lancets (ONETOUCH DELICA PLUS [id number]) MISCIndications:Type 2 diabetes mellitus with hemoglobin A1c goal of less than 8.0% (HCC) Use to check blood sugar up to 3 times per day E11.9 100 Each 11 01/17/2020 Active Pen Alma 32G X 4 MMIndications:Type 2 diabetes mellitus [...] on tongue as needed. 0 05/15/2021 Active Q Interactiveuch Verio In Vitro Strip (Glucose Blood)Indications:Ty pe 2 diabetes mellitus with hemoglobin A1c goal of less than 8.0% (HCC) Test blood sugar 2 to 3 times a day and as needed. E11.9 100 Strip 11 08/19/2021 Active B-12-SL 1000 MCG Sublingual Tablet Sublingual (Cyanocobalamin)Ilda cations:B12 deficiency Place under the tongue 1,000 mcg daily . 90 Tablet 3 03/18/2022 Active Alendronate Sodium 70 MG Oral Tablet (Fosamax) TAKE 1 TAB BY MOUTH ONCE A WEEK W/ 8OZ. WATER 30MIN BEFORE 1ST MEAL OF DAY. REMAIN UPRIGHT X30MIN 12 Tablet 2 07/05/2022 Active Ozempic (1 MG/DOSE) 4 MG/3ML Subcutaneous [...] OTHER MEDICATION 90 Tablet 3 02/04/2023 Active Terbinafine HCl 250 MG Oral TabletIndications:En larged and hypertrophic nails,Onychomycosis Take 1 Tablet by mouth in the morning. for toenail fungus. Labs prior to refill. 42 Tablet 0 02/04/2023 Active Lisinopril 10 MG Oral Tablet [...] suspected opioid overdose. Seek immediate medical attention. [email or web address]://[email or web address]/[email or web address]?v=v26c [email or web address] 1 Each 3 03/01/2023 Active documented as of this encounter (statuses as of 03/02/2023) Active Problems Problem Noted Date Chronic bilateral thoracic back pain Recurrent major depressive disorder 10/28 Encounter for examination fo r normal comparison and control in clinical research program 01/03/2020 Overview: [employer]: A Randomized Controlled Trial (Project # [id number]). The [employer] program provides food-insecure diabetics with healthy food for their entire household (2 meals/ day X 5 days/week). The program also provides education on food preparation, healthy living, and diabetes self management. The research measures the effects of the program on patient health and wellbeing. Subject will begin the FFF program December 2019. Contact Information: Family Nurse: Dr. Palmer Anders ([phone]) CRC: Glory Arteaga ([phone]) RA: Chiara Laura ([phone]) Diagnosis changed due to Research Module. Go to Snapshot for study details. Gastroesophageal reflux disease without esophagitis 02/12/2016 HTN, goal below 130/80 02/12/2016 Type 2 diabetes mellitus with hemoglobin A1c goal of less than 8.0% 07/23/2013 Overview: ICD-10 update of inactive term FELICITY (obstructive sleep apnea) 11/21/2012 Overview: AHI 11.5 on 11/09/12 AHP 12/29/12 auto cpap set at 10 cm H20 Depression 11/02/2012 Migraine with aura 07/06/2011 Abnormal results of liver function studi es 06/08/2010 Overview: FATTY LIVER BY PREVIOUS U/S, CT Localized osteoarthrosis not specified whether primary or secondary, unspecified site 06/08/2010 Overview: KNEES Other specified disorder of gallbladder 02/14/2008 Overview: SLUDGE ON U/S, NORMAL HIDA 2007 Varicose vein of leg 12/04/2007 Dyslipidemia, goal LDL below 100 006 Calculus of kidney 02/15/2005 Overview: NON OBSTRUCTIVE CALCULUS RIGHT KIDNEY 2008 ADVANCE DIRECTIVE INFORMATION 11/09/2004 Acquired hypothyroidism 07/18/2003 documented as of this encounter (statuses as of 03/02/2023) Resolved Problems Problem Noted Date Resolved Date Controlled substance agreement signed 04/01/2016 11/23/2017 HTN, goal below 140/90 01/03/2012 6 GERD (gastroesophageal reflux disease) 2 02/12/2016 DM type 2, not at goal 04/21/2009 1 Tension headache 03/10/2009 06/08/2010 Other screening mammogram 04/08/20082010 Overview: 04/01/2008--NORMAL Mammogram--Dr. Wilson ordered LIVER DISORDER NOS-fatty liver 02/14/2008 0 06/08/2010 Overview: 02/23/2008-NML HIDA- Sep08- [place]--Marked increased [...] and refused to pool. Major depressive disorder, single episode, mild 04/18/2007 06/08/2010 Overview: 12/04/2007: off since ?. On prozac, was inc to 30 mg [id number].Still.,wean 04/18/2007 Screening for malignant neoplasm of cervix 01/1606/08/2010 Overview: PAP--?lga08--KR.Grill.----is [facility]-- [place] , had post Fu and pap . Viral warts 01/16/2007 06/08/2010 Overview: ICD-10 update of inactive term NEPHRITIS NOS IN OTH DIS-dm 03/31/200605/30 Overview: :A neg MICROALBUMIN 03/29/06 132* ,start lisimopril. 09-26-07: 30, nml bmp, alt, 11 MICROALBUMIN 01/14/06 62* ,will RPT in 4 wks.- 33. DIABETES-ANTEPARTUM 11/02/2005 06/08/2010 POLYHYDRAMNIOS-ANTEPART 10/06/2005 06/08/19 11 Type 2 diabetes mellitus wit h hemoglobin A1c goal of less than 7.0% 03/17/2005 07/23/2013 JOINT PAIN-L-LEG(aka KNEE) 07/20/200306/08 LIPOMA SKIN NEC 07/20/2003 06/08/2010 Obesity 07/18/2003 12/07/2018 documented as of this encounter (statuses as of 03/02/2023) Immunizations Name Administration Dates Next Due COVID-19 [...] pur e alcohol) Once every few months Food Insecurity Answer Date Recorded Within the past 12 months, y ou worried that your food would run out before you got money to buy more. Never true 07/26/2022 Within the past 12 months, t he food you bought just didn't last and you didn't have money to get more. Never true 07/26/2022 Sex Assigned at Date Recorded Female 01/17/2019 12:40 PM EDT Job Start Date Occupation Industry Not on file Not on file Not on file documented as of this encounter Last Filed Vital Signs Vital Sign Reading Time Taken Comments Blood Pressure 152/99 03/01/2023 2:00 PM EDT Pulse 72 03/01/2023 2:00 PM EDT Temperature 36.4 C (97.5 F) 03/01/2023 9:39 AM ED T Respiratory Rate 18 03/01/2023 2:00 PM EDT Oxygen Saturation 97% 03/01/2023 2:00 PM EDT Inhaled Oxygen Concentration - - Weight 84.4 kg (186 lb) 03/01/2023 9:39 AM EDT Height 170.2 cm (5' 7") 03/01/2023 9:39 AM EDT Body Mass Index 29.13 03/01/2023 9:39 AM EDT documented in this encounter Discharge Instructions * Discharge Instructions* Tato Macedo DO - 03/01/2023 2:23 PM EDT You have a right rib fracture. Please use the incentive spirometer and refer to the attachment for information instructions. Please use ibuprofen and Tylenol to help with your discomfort. Make sure you follow the instructions. You can alternate between Tylenol and ibuprofen every 3 hours. So 1st take 650 mg Tylenol, 3 hours later take 400 mg ibuprofen, 3 hours later take Tylenol, and so on. Make sure you eat something when you take ibuprofen. Please avoid the ibuprofen if possible. Only use the oxycodone for breakthrough pain. Do not operate machinery of taking this medication and also be very cautious when you standup or walk as you may be unsteady on her feet when taking this medicine. Please follow-up with your primary care doctor this week. If you develop any new or concerning symptoms such as chest pain, difficulty breathing, fevers, persistent nausea/vomiting, inability to tolerate oral hydration, severe abdominal pain, or any other concerning symptoms please return to the emergency department for evaluation. documented in this encounter ED Notes * Tato Macedo DO - 03/01/2023 11:06 AM EDT HISTORY OF PRESENT ILLNESS Miguel Manuel is a 57 year old female who presents to the ED for evaluation of Fall. The patient was seen at 03/01/23 1012. 57-year-old female presenting to the emergency department after a fall. She was at work and tripped over a cord. She struck her right shoulder and face on the ground. She is developing a right- sided headache. She does not have any posterior neck pain but does have pain nearthe base of her right lateral neck. She complains of pain in the trapezius area I am right upper chest as well as her right shoulder and upper arm. She denies any injuries in the other extremities, abdomen or midline back but does have some right upper back pain from the fall. She says she got up and walked but when she got out to her car she felt like she was going to pass out and then woke up on the ground with everyone around her. She denies any coughing, fevers, urinary symptoms, abnormal bowel movements. She has pain in the right clavicle, upper chest region with deep breaths. History provided by: patient level designer used: No Trauma Evaluation: Mechanism of injury: fall Trauma Mechanism of injury: Fall The patient's allergies, past history, and medications were reviewed. PHYSICAL EXAM Initial Vitals (see all): BP 106/80 | Pulse 88 | Resp 18 | Temp 97.5 | O2 100 %Weight 84.37 kg | Height 170.2 cm | BMI 29.13 kg/m2 Initial Pain Assessment (see all): 8 (severe pain)/10, location: right shoulder/clavicle ([facility] Adult Scale 0-10) Physical Exam Vitals and nursing note reviewed. Constitutional: General: She is not in acute distress. Appearance: Normal appearance. She is well-developed. She is not ill-appearing or diaphoretic. HENT: Head: Normocephalic and atraumatic. Comments: She does have some mild tenderness around the right eye Nose: Nose normal. Mouth/Throat: Mouth: Mucous membranes are moist. Pharynx: Oropharynx is clear. Eyes: Extraocular Movements: Extraocular movements intact. Pupils: Pupils are equal, round, and reactive to light. Cardiovascular: Rate and Rhythm: Normal rate and regular rhythm. Pulses: Normal pulses. Pulmonary: Effort: Pulmonary effort is normal. No respiratory distress. Breath sounds: Normal breath sounds. No wheezing or rales. Abdominal: General: Bowel sounds are normal. There is no distension. Palpations: Abdomen is soft. Tenderness: There is no abdominal tenderness. There is no guarding. Musculoskeletal: General: Normal range of motion. Cervical back: Normal range of motion. Comments: There is tenderness over the right shoulder, upper humerus, right upper chest, trapezius,there is limited range of motion in the right shoulder There is no midline spine tenderness or deformity, there is no tenderness with palpation of the lower extremities or left upper extremity or the elbow down through the hand of the right upper extremity Skin: General: Skin is warm. Comments: There is no significant bruising Neurological: General: No focal deficit present. Mental Status: She is alert. Sensory: No sensory deficit. Motor: No weakness. Psychiatric: Mood and Affect: Mood normal. PROCEDURES AND TREATMENTS ED Orders | ED Results MEDICAL DECISION MAKING Nursing notes and vital signs were reviewed. ED Course as of 03/01/23 1424 Tue Mar 01, 2023 1343 Patient did well with ambulation and orthostatics. [AT] 1416 Patient found to have a possible right rib fracture of indeterminate age but this is the area of pain for the patient. No pulmonary contusion read by Radiology. Since this patient's pain is improved and she is oxygenating well and prefers to be discharged home I will discharge her. Troponin series is negative. Patient ambulated well. Pulse ox within normal limits during ambulation for nursing staff. Pain is improving but still 5/10. I will give her a short prescription of oxycodone to go home with. Incentive spirometer. Return precautions. Encouraged to follow-up with her primary care doctor as well. [AT] ED Course User Index [AT] Tato Macedo DO Differential Diagnoses Based on my history, physical exam, and evaluation, the differential includes, but is not limited, to the following diagnoses: Mechanical fall, syncope, arrhythmia, ACS, rib fracture, clavicle fracture, shoulder dislocation less likely, humeral fracture, contusions, occult C-spine injury, intracranial hemorrhage, tumor less likely, pulmonary contusion, vagal episode, orthostatic hypotension, UTI. 57-year-old female presenting to the emergency department after mechanical fall. She syncopized shortly after as well. She complains of a right-sided headache. She has pain over her right shoulder, trapezius and right upper chest. I will obtain CT head from head through chest. She will be provided Tylenol. Labs will be obtained including a troponin. EKG on my independent review reveals a normal sinus rhythm at a rate of 69. Intervals within normal limits. I do not appreciate any signs of ischemia arrhythmia. Overall appears similar compared to prior. Urinalysis will be sent as well. No significant bruising or tenderness on exam of the face to suggest a need for a CT face. She has full extraocular range of motion and pupils are equal and reactive. Amount and/or Complexity of Data Reviewed Labs: ordered. Radiology: ordered. ECG/medicine tests: ordered. Risk OTC drugs. Prescription drug management. Clinical Impressions Syncope Closed fracture of one rib of right side, initial encounter Disposition Discharged. The patient's condition at disposition was: stable. Discharge Medications Disp Refills Start End oxyCODONE HCl 5 MG Oral Tablet (Oxy IR) 10 Tablet 0 03/01/2023 Sig - Route: Take 1 Tablet by mouth every 8 hours as needed for Pain, Breakthrough or Pain, Severe for up to 10 doses. - Oral Class: ePrescribing Earliest Fill Date: 03/01/2023 Renewals Renewal requests to authorizing provider (Tato Macedo DO) <b>prohibited</b> Naloxone HCl 4 MG/0.1ML Nasal Liquid (Narcan Nasal) 1 Each 3 03/01/2023 Sig: Administer 1 spray into 1 nostril for suspected opioid overdose. Seek immediate medical attention. [email or web address]://www.Shape [email or web address]/[email or web address]?v=[email or web address] Class: ePrescribing Renewals Renewal requests to authorizing provider (Tato Macedo DO) <b>prohibited</b> Tato Macedo * Anjelica Jensen RN - 03/01/2023 9:44 AM EDT Pt came to ED via EMS due to fall.pt states on baby aspirin. Pt states at work and tripped over wires. Pt states hit head off of wheel chair, shoulder off of hospital bed. States pain in right shoulder region. 8/10 on pain scale. Zofran given by EMS. documented in this encounter Miscellaneous Notes * Pt Handout (on AVS) - Tato Macedo, - 03/01/2023 2:18 PM EDT Images from the original note were not included. [address]2005 Using an Incentive Spirometer An incentive spirometer is a device that helps you do deep breathing exercises after surgery. Or ithelps lower the risk for breathing problems if you have a lung disease or condition. These exercises expand your lungs, aid in circulation, and may help prevent pneumonia. Deep breathing exercises also help you breathe better and improve the function of your lungs by: Keeping your lungs clear Strengthening your breathing muscles Helping prevent respiratory complications or problems The incentive spirometer gives you a way to take an active part in your recovery. A nurse or respiratory therapist will teach you breathing exercises. To do these exercises, you will breathe in through your mouth and not your nose. The incentive spirometer only works correctly if you breathe in through your mouth. Deep breathing expands the lungs, aids circulation, and helps prevent pneumonia. Your healthcare provider or their staff will tell you how to use the device, your targeted volume(s), and provide other helpful tips to prevent complications (such as pain, dizziness, feeling lightheaded) when blowing in the incentive spirometer. Steps to clear lungs Step 1. Exhale normally. Then, inhale normally. Relax and breathe out. Step 2. Place your lips tightly around the mouthpiece. Make sure the device is upright and not tilted. Sit up and breathe out (exhale) fully Tightly seal your lips around the mouthpiece Step 3. Inhale as much air as you can through the mouthpiece. Don't breathe through your nose. Breathe in (inhale) slowly and deeply. Hold your breath long enough to keep the balls, piston, or disk raised for at least 3 to 5seconds, or as instructed by your healthcare provider. Exhale slowly to allow the balls, piston, or disk to fall before repeating again. Note: Some spirometers have an indicator to let you know that you are breathing in too fast. If theindicator goes off, breathe in more slowly. Step 4. Repeat the exercise regularly. Do sets of 10 exercises every hour while you're awake, or as instructed by your healthcare provider. Don't do more than 30 breaths in each set. If you were taught deep breathing and coughing exercises, do them regularly as instructed by your provider, nurse, or respiratory therapist. Follow-up care Make a follow-up appointment, or as directed by your healthcare provider. Also follow up with your provider as advised if your symptoms don't improve or continue to get worse. When to call your healthcare provider Call your healthcare provider right away if you have any of these: Fever 100.4 (38C) or higher, or as advised by your provider Brownish, bloody, or smelly sputum (phlegm that you cough up) Call 911 Call 911 if any of these occur: Shortness of breath that doesn't get better after taking your medicine Cool, moist, pale, or blue skin Trouble breathing or swallowing, wheezing Fainting or loss of consciousness Feeling of dizziness or weakness, or a sudden drop in blood pressure Feeling very ill Lightheadedness Chest pain or rapid heart rate Last Reviewed Date: 10/28/202119998515-7895 [employer]. All rights reserved. This information is not intended as a substitute for professional medical care. Always follow your healthcare professional's instructions. * Pt Handout (on AVS) - Tato Macedo DO - 03/01/2023 2:18 PM EDT Images from the original note were not included. [address]5633 Rib Fracture (Broken Rib) Your ribs are curved bones in your chest. They help protect your lungs and expand and contract whenyou breathe. Children's ribs bend easily and can often withstand a blow or fall. But adult ribs aremore likely to break (fracture) under stress. Even coughing or a hard sneeze can fracture a rib. When to go to the emergency room (ER) Although they can be painful, most rib fractures aren't serious. But they often make it hard to cough or breathe deeply. Get to the ER or call 911 right away if you have: Trouble breathing Nausea, vomiting, or stomach pain with a sore or bruised rib Pain that worsens over time An injury to the chest or stomach What to expect in the ER Here's what will happen in the ER: A healthcare provider will ask about your injury and examine you carefully. An X-ray of your chest will likely be taken to show any major damage to ribs and lungs. But ribscan have small breaks that don't show up on X-rays, even though they still hurt. In some cases, a CT scan may be done. You may be given medicine to ease your discomfort. In rare cases, rib fractures can cause a lung to collapse or lead to bleeding in the chest. In these cases, a tube will be inserted into the chest to reinflate the lung or drain the blood. Follow-up You are likely to heal in 6 to 8 weeks. Most rib fractures heal on their own with no lasting effects. Call your healthcare provider right away if you notice any of these symptoms: Increased chest pain Shortness of breath Fever of 100.4F (38C) or above, or as directed by your provider Chills Coughing up blood Last Reviewed Date: 02/27/202119993506-4581 [employer]. All rights reserved. This information is not intended as a substitute for professional medical care. Always follow your healthcare professional's instructions. * ED Educational Technology Coordinator Note - Anjelica Jensen RN - 03/01/2023 9:54 AM EDT Pt came to ED due to fall via EMS. Pt states at work she tripped over cords and hit head on wheel chair, shoulder on hospital bed. Pt denies LOC. Pt states 8/10 pain in right shoulder/clavicle region. Pt has no evident bruising in region. Pt states on baby aspirin. Pt denies SINGER. States dizziness when moving. Pt states hx of lower BP. Pt denies SOB, /GI abnormalities. Denies NVD. Pt states pain in left clavicle region when breathing in. Pt denies any other complaints. Normoactive bowel sounds.Regular heart rhythm. Bilaterally clear in lungs. +PMS in all extremities. Pt laying in bed with call modi in reach. All questions answered at this time. 1112: pt given meds as per order. Pt tolerated well. Pt laying in bed with call modi in reach. All questions answered at this time. 1307: c collar removed by provider. Pt laying in bed with call modi in reach. All questions answered at this time. 1331: pt positional changes tolerated well and documented. Denies dizziness, SINGER, SOB. Pulse ox ambulated tolerated well. Denies SOB, dizziness, SINGER. Pt tolerated medications given as per eMAR Well. Provider made aware. Pt denies any further needs at this time. Pt laying in bed with call modi in reach. All questions answered at this time. 1407: pt states pain 5/10 on adult pain scale. Pt laying in bed with call modi in reach. All questions answered at this time. documented in this encounter Plan of Treatment Upcoming Encounters Date Type Specialty Care Team Description 02/01/2024 Office Visit Family Medicine Héctor Johnson MD [address] [place] [id number] Scheduled Orders Name Type Priority Associated Diagnoses Orde r Schedule 3 POSITIONAL BLOOD PRESSURE Procedures STAT One Time for 1 Occurrences starting 03/01/2023 until 03/01/2023 Scheduled Procedures Name Priority Associated Diagnoses Date/Ti me COLONOSCOPY FLEXIBLE PROXIMA L DIAGNOSTIC Recall Family history of colon cancer Health Maintenance Due Date Last Done Comments HPV/Co-Test 1997 DTaP,Tdap,and Td Vaccines (2 - Td or Tdap) 05/04/2017 05/04/2007 Zoster Vaccines (1 of 2) 2017 DIABETES-EYE EXAM 03/23/2022 03/23/2021, , 11/17/2016, Additional history exists COVID-19 Vaccine (2 - season) 2023 05/01/2021 Influenza Vaccine (FLU shot) [...] 02/02/2023, 01/29, 01/12/2021, Additional history exists GFR 03/01/2024 03/01/2023, 10/2022, 02/22/2022, Additional history exists PAP SMEAR-EVERY 5 YRS,AGES 21-100 03/10/2025 03/10/2020, 03/10/2020, 02/10/2016, Additional history exists Lipid Panel 02/22/2027 02/22/2022, 0305/2020, 03/10/2020, Additional history exists Pneumococcal Vaccine: Pediatrics (0 to 5 Years) and At-Risk Patients (6 to 64 Years) (3 - PPSV23 or PCV20) 2032 03/04/2015, 03/17/2005 Hepatitis B Completed 11/28/1995, 030 05/1994, 05/30/1994 Cologuard Discontinued 12/15/2017, 12/08/2017 Colonoscopy [...] Procedure Name Priority Date/Time Associated Diagnosis Comments TROPONIN T, HIGH SENSITIVITY Routine 03/01/2023 1:12 PM EDT URINALYSIS, REFLEX TO MICROSCOPIC STAT 03/01/2023 12:42 PM EDT XR HUMERUS 2 OR MORE VIEWS STAT 03/01/2023 11:33 AM EDT XR SHOULDER, 2 OR MORE VIEWS STAT 03/01/2023 11:[address] C SPINE WO CONTRAST STAT 11:[address] CHEST WO CONTRAST STAT 03/01/2023 11:[address] HEAD/BRAIN WO CONTRAST STAT 03/01/2023 11:29 AM EDT DIFFERENTIAL, AUTOMATED STAT 03/01/2023 10:52 AM EDT TROPONIN T, HIGH SENSITIVITY STAT 03/01/2023 10:52 AM EDT COMPREHENSIVE METABOLIC PANEL STAT 03/01/2023 10:52 AM EDT CBC STAT 03/01/2023 10:52 AM EDT CBC STAT 03/01/2023 10:52 AM EDT documented in this encounter Results * TROPONIN T, HIGH SENSITIVITY (03/01/2023 1:12 PM EDT) Troponin T, High Sensitivity 11 <=14 ng/L 03/01/2023 1:46 PM EDT [facility] Blood Venous blood specimen / Unknown Venipuncture / Unknown 03/01/2023 1:12 PM EDT 03/01/2023 1:20 PM EDT Tato Macedo DO LAB BLOOD ORDERABLE S LABORATORY [address] [address] * (ABNORMAL) URINALYSIS, REFLEX TO MICROSCOPIC (03/01/2023 12:42 PM EDT) Color, Urine Yellow Light Yellow, Yellow, Dark Yellow 03/01/2023 12:55 PM EDT [facility] Clarity, Urine Clear Clear 03/01/2023 12:55 PM EDT [facility] Glucose, Urine >=1000(A) Negative mg/dL 03/01/2023 12:55 PM EDT LABORATORY [facility] Bilirubin, Urine Negative Negative 03/01/2023 12:55 PM EDT LABORATORY [facility] Ketone, Urine Negative Negative mg/dL 03/01/2023 12:55 PM EDT [facility] Specific [place], Urine 1.025 1.003 - 1.030 03/01/2023 12:55 PM EDT [facility] Blood, Urine Negative Negative 03/01/2023 12:55 PM EDT LABORATORY GL pH, Urine 6.0 5.0 - 7.5 Units 03/01/2023 12:55 PM EDT LABORATORY GL Protein, Urine Negative Negative mg/dL 03/01/2023 12:55 PM EDT LABORATORY GL Urobilinogen, Urine 1.0 0.2, 1.0 mg/dL 03/01/2023 12:55 PM EDT LABORATORY GL Nitrite, Urine Negative Negative 03/01/2023 12:55 PM EDT [facility] Esterase, Urine Negative Negative 12:55 PM EDT LAB[facility]ATORY [facility] Comment, Urine 03/01/2023 12:55 PM EDT LABORATORY [facility] Comment:Screen negative - Mi croscopic not performed. Urine Urine specimen obtained by clean catch procedure / Unknown Non-blood Collection / Unknown 03/01/2023 12:42 PM EDT 03/01/2023 12:47 PM EDT Tato Macedo DO LAB URINE ORDERABLE S LABORATORY [address] [address] * XR SHOULDER, 2 OR MORE VIEWS (03/01/2023 11:33 AM EDT) Anatomical Region Laterality Modality Upper Extremity, Shoulder Digita l Radiography 03/01/2023 11:4 3 AM EDT Impressions 03/01/2023 12:19 PM EDT IMPRESSION: No acute abnormality. THIS DOCUMENT HAS BEEN ELECTRONICALLY SIGNED BY GAEL MARINO MD Narrative 03/01/2023 12:19 PM EDT PROCEDURE INFORMATION: Exam: XR Right Shoulder Exam date and time: 03/01/2023 11:43 AM Age: 57 years old Clinical indication: Other: Pain after fall TECHNIQUE: Imaging protocol: Radiologic exam of the right shoulder. Views: 2 or more views. COMPARISON: DX XR HUMERUS 2 OR MORE VIEWS 03/01/2023 11:42 AM FINDINGS: Bones/joints: No acute fracture or dislocation is seen. There are moderate degenerative changes involving the right acromioclavicular joint. Soft tissues: Normal. Procedure Note Gael Marino MD - 03/01/2023 PROCEDURE INFORMATION: Exam: XR Right Shoulder Exam date and time: 03/01/2023 11:43 AM Age: 57 years old Clinical indication: Other: Pain after fall TECHNIQUE: Imaging protocol: Radiologic exam of the right shoulder. Views: 2 or more views. COMPARISON: DX XR HUMERUS 2 OR MORE VIEWS 03/01/2023 11:42 AM FINDINGS: Bones/joints: No acute fracture or dislocation is seen. There are moderate degenerative changes involving the right acromioclavicular joint. Soft tissues: Normal. IMPRESSION IMPRESSION: No acute abnormality. THIS DOCUMENT HAS BEEN ELECTRONICALLY SIGNED BY GAEL MARINO MD [facility] RADIOLOGY ([facility]) * XR HUMERUS 2 OR MORE VIEWS (03/01/2023 11:33 AM EDT) Anatomical Region Laterality Modality Upper Extremity, HUMERUS Digital Radiography 03/01/2023 11:4 2 AM EDT Impressions 03/01/2023 12:18 PM EDT IMPRESSION: No acute findings. THIS DOCUMENT HAS BEEN ELECTRONICALLY SIGNED BY GAEL MARINO MD Narrative 03/01/2023 12:18 PM EDT PROCEDURE INFORMATION: Exam: XR Right Humerus Exam date and time: 03/01/2023 11:42 AM Age: 57 years old Clinical indication: Other: Pain, after fall TECHNIQUE: Imaging protocol: Radiologic exam of the right humerus. Views: 2 or more views. COMPARISON: CT C SPINE WO CONTRAST 03/01/2023 11:16 AM FINDINGS: Bones/joints: There is no acute fracture or dislocation. Soft tissues: Normal. Procedure Note Gael Marino MD - 03/01/2023 PROCEDURE INFORMATION: Exam: XR Right Humerus Exam date and time: 03/01/2023 11:42 AM Age: 57 years old Clinical indication: Other: Pain, after fall TECHNIQUE: Imaging protocol: Radiologic exam of the right humerus. Views: 2 or more views. COMPARISON: CT C SPINE WO CONTRAST 03/01/2023 11:16 AM FINDINGS: Bones/joints: There is no acute fracture or dislocation. Soft tissues: Normal. IMPRESSION IMPRESSION: No acute findings. THIS DOCUMENT HAS BEEN ELECTRONICALLY SIGNED BY GAEL MARINO MD [facility] RADIOLOGY ([facility]) * CT CHEST WO CONTRAST (03/01/2023 11:29 AM EDT) Anatomical Region Laterality Modality Chest, Body, Cardio Computed Sukhwinder ography 03/01/2023 11:1 6 AM EDT Impressions 03/01/2023 12:03 PM EDT IMPRESSION: 1. Age-indeterminate fracture involving the anterior right 2nd rib near the costochondral junction. 2. Chronic findings as discussed above. REFERENCES: Stephany Titus, et al. Guidelines for Management of Incidental Pulmonary Nodules Detected on CT Images: From the Fleischner Society 2017. Radiology. 2017;284(1):228-243. THIS DOCUMENT HAS BEEN ELECTRONICALLY SIGNED BY GAEL MARINO MD Narrative 03/01/2023 12:03 PM EDT PROCEDURE INFORMATION: Exam: CT Chest Without Contrast; Diagnostic Exam date and time: 03/01/2023 11:16 AM Age: 57 years old Clinical indication: Other: Right upper chest pain, concern for rib fractures/clavicle/other injury TECHNIQUE: Imaging protocol: Diagnostic computed tomography of the chest without contrast. 3D rendering (Not supervised by radiologist): MIP and/or 3D reconstructed images were created by the technologist. Radiation optimization: All CT scans at this facility use at least one of these dose optimization techniques: automated exposure control; mA and/or kV adjustment per patient size (includes targeted exams where dose is matched to clinical indication); or iterative reconstruction. REPORTING DATA: Count of CT and Cardiac NM exams in prior 12 months: This patient has received 0 known CTs and 0 known cardiac nuclear medicine studies in the 12 months prior to the current study. COMPARISON: DX (PORT CXR AP X-TRIVEDI, CHEST, PORT CXR AP X-TRIVEDI) 04/01/2016 1:47 PM FINDINGS: Limitations: Evaluation is limited without IV contrast. Lungs: Dependent atelectasis is present in both lungs. No focal consolidation is seen. There are two 6 mm nodules in the left lower lobe along the major fissure.For patients at low risk (minimal or absent history of smoking and of other known risk factors), recommend CT Chest at 3-6 months, then consider CT Chest at 18-24 months. For patients at high risk (history of smoking or of other known risk factors), recommend CT Chest at 3-6 months, then CT Chest at 18-24 months. (Reference: MacMahon) Pleural spaces: Unremarkable. No pneumothorax. No pleural effusion. Heart: The heart is not significantly enlarged. Coronary artery calcifications are present. There is no pericardial effusion. Lymph nodes: Unremarkable. No enlarged lymph nodes. Vasculature: No aortic aneurysm. Bones/joints: There is an age-indeterminate fracture involving the anterior right 2nd rib near the costochondral junction. Soft tissues: Unremarkable. Procedure Note Gael Marino MD - 03/01/2023 PROCEDURE INFORMATION: Exam: CT Chest Without Contrast; Diagnostic Exam date and time: 03/01/2023 11:16 AM Age: 57 years old Clinical indication: Other: Right upper chest pain, concern for rib fractures/clavicle/other injury TECHNIQUE: Imaging protocol: Diagnostic computed tomography of the chest withoutcontrast. 3D rendering (Not supervised by radiologist): MIP and/or 3D reconstructed images were created by the technologist. Radiation optimization: All CT scans at this facility use at least one ofthese dose optimization techniques: automated exposure control; mA and/or kV adjustment per patient size (includes targeted exams where dose is matchedto clinical indication); or iterative reconstruction. REPORTING DATA: Count of CT and Cardiac NM exams in prior 12 months: This patient hasreceived 0 known CTs and 0 known cardiac nuclear medicine studies in the 12 monthsprior to the current study. COMPARISON: DX (PORT CXR AP X-TRIVEDI, CHEST, PORT CXR AP X-TRIVEDI) 04/01/2016 1:47 PM FINDINGS: Limitations: Evaluation is limited without IV contrast. Lungs: Dependent atelectasis is present in both lungs. No focalconsolidation is seen. There are two 6 mm nodules in the left lower lobe along the major fissure.For patients at low risk (minimal or absent history of smoking andof other known risk factors), recommend CT Chest at 3-6 months, then considerCT Chest at 18-24 months. For patients at high risk (history of smoking or of other known risk factors), recommend CT Chest at 3-6 months, then CT Chestat 18-24 months. (Reference: Stephany) Pleural spaces: Unremarkable. No pneumothorax. No pleural effusion. Heart: The heart is not significantly enlarged. Coronary arterycalcifications are present. There is no pericardial effusion. Lymph nodes: Unremarkable. No enlarged lymph nodes. Vasculature: No aortic aneurysm. Bones/joints: There is an age-indeterminate fracture involving theanterior right 2nd rib near the costochondral junction. Soft tissues: Unremarkable. IMPRESSION IMPRESSION: 1. Age-indeterminate fracture involving the anterior right 2nd rib nearthe costochondral junction. 2. Chronic findings as discussed above. REFERENCES: Stephany H, et al. Guidelines for Management of Incidental PulmonaryNodules Detected on CT Images: From the Fleischner Society 2017. Radiology. 2017;284(1):228-243. THIS DOCUMENT HAS BEEN ELECTRONICALLY SIGNED BY GAEL MARINO MD [facility] * CT C SPINE WO CONTRAST (03/01/2023 11:29 AM EDT) Anatomical Region Laterality Modality Cspine, Spine, Neck, Vertebra Co mputed Tomography 03/01/2023 11:1 6 AM EDT Impressions 03/01/2023 12:15 PM EDT IMPRESSION: No acute abnormality. THIS DOCUMENT HAS BEEN ELECTRONICALLY SIGNED BY GAEL MARINO MD Narrative 03/01/2023 12:15 PM EDT PROCEDURE INFORMATION: Exam: CT Cervical Spine Without Contrast Exam date and time: 03/01/2023 11:16 AM Age: 57 years old Clinical indication: Other: Fall; Additional info: No applicable indication TECHNIQUE: Imaging protocol: Computed tomography of the cervical spine without contrast. Radiation optimization: All CT scans at this facility use at least one of these dose optimization techniques: automated exposure control; mA and/or kV adjustment per patient size (includes targeted exams where dose is matched to clinical indication); or iterative reconstruction. REPORTING DATA: Count of CT and Cardiac NM exams in prior 12 months: This patient has received 0 known CTs and 0 known cardiac nuclear medicine studies in the 12 months prior to the current study. COMPARISON: DX TSPINE 06/25/2022 11:59 AM FINDINGS: Bones/joints: There is no acute cervical spine fracture alignment is anatomic. Moderate degenerative changes of the cervical spine are present. There is no significant spinal canal stenosis. Lungs: The lung apices are clear. Soft tissues: Unremarkable. Procedure Note Gael Marino MD - 03/01/2023 PROCEDURE INFORMATION: Exam: CT Cervical Spine Without Contrast Exam date and time: 03/01/2023 11:16 AM Age: 57 years old Clinical indication: Other: Fall; Additional info: No applicableindication TECHNIQUE: Imaging protocol: Computed tomography of the cervical spine withoutcontrast. Radiation optimization: All CT scans at this facility use at least one ofthese dose optimization techniques: automated exposure control; mA and/or kV adjustment per patient size (includes targeted exams where dose is matchedto clinical indication); or iterative reconstruction. REPORTING DATA: Count of CT and Cardiac NM exams in prior 12 months: This patient hasreceived 0 known CTs and 0 known cardiac nuclear medicine studies in the 12 monthsprior to the current study. COMPARISON: DX TSPINE 06/25/2022 11:59 AM FINDINGS: Bones/joints: There is no acute cervical spine fracture alignment isanatomic. Moderate degenerative changes of the cervical spine are present. There isno significant spinal canal stenosis. Lungs: The lung apices are clear. Soft tissues: Unremarkable. IMPRESSION IMPRESSION: No acute abnormality. THIS DOCUMENT HAS BEEN ELECTRONICALLY SIGNED BY GAEL MARINO MD [facility] CT HEAD/BRAIN WO CONTRAST (03/01/2023 11:29 AM EDT) Anatomical Region Laterality Modality Head Computed Tomogra phy 03/01/2023 11:1 6 AM EDT Impressions 03/01/2023 11:45 AM EDT IMPRESSION: No acute intracranial abnormality. THIS DOCUMENT HAS BEEN ELECTRONICALLY SIGNED BY GAEL MARINO MD Narrative 03/01/2023 11:45 AM EDT PROCEDURE INFORMATION: Exam: CT Head Without Contrast Exam date and time: 03/01/2023 11:16 AM Age: 57 years old Clinical indication: Other: Fall, syncope, SINGER, right side TECHNIQUE: Imaging protocol: Computed tomography of the head without contrast. Radiation optimization: All CT scans at this facility use at least one of these dose optimization techniques: automated exposure control; mA and/or kV adjustment per patient size (includes targeted exams where dose is matched to clinical indication); or iterative reconstruction. REPORTING DATA: Count of CT and Cardiac NM exams in prior 12 months: This patient has received 0 known CTs and 0 known cardiac nuclear medicine studies in the 12 months prior to the current study. COMPARISON: No relevant prior studies available. FINDINGS: Brain: No acute intracranial hemorrhage, cerebral edema, or midline shift. Cerebral ventricles: No hydrocephalus. Paranasal sinuses: There is no acute sinusitis. Mastoid air cells: Visualized mastoid air cells are well aerated. Orbital cavities: The visualized orbits appear unremarkable. Bones/joints: No acute fracture. Soft tissues: Unremarkable. Procedure Note Gael Marino MD - 03/01/2023 PROCEDURE INFORMATION: Exam: CT Head Without Contrast Exam date and time: 03/01/2023 11:16 AM Age: 57 years old Clinical indication: Other: Fall, syncope, SINGER, right side TECHNIQUE: Imaging protocol: Computed tomography of the head without contrast. Radiation optimization: All CT scans at this facility use at least one ofthese dose optimization techniques: automated exposure control; mA and/or kV adjustment per patient size (includes targeted exams where dose is matchedto clinical indication); or iterative reconstruction. REPORTING DATA: Count of CT and Cardiac NM exams in prior 12 months: This patient hasreceived 0 known CTs and 0 known cardiac nuclear medicine studies in the 12 monthsprior to the current study. COMPARISON: No relevant prior studies available. FINDINGS: Brain: No acute intracranial hemorrhage, cerebral edema, or midline shift. Cerebral ventricles: No hydrocephalus. Paranasal sinuses: There is no acute sinusitis. Mastoid air cells: Visualized mastoid air cells are well aerated. Orbital cavities: The visualized orbits appear unremarkable. Bones/joints: No acute fracture. Soft tissues: Unremarkable. IMPRESSION IMPRESSION: No acute intracranial abnormality. THIS DOCUMENT HAS BEEN ELECTRONICALLY SIGNED BY GAEL MARINO MD [facility] CT * (ABNORMAL) DIFFERENTIAL, AUTOMATED (03/01/2023 10:52 AM EDT) WBC 3.43(L) 4.00 - 10.80 K/uL 03/01/2023 10:59 AM EDT [facility] Neutrophils % 53.9 40.0 - 75.0 % 03/01/2023 10:59 AM EDT [facility] Lymphocytes % 36.4 18.0 - 42.0 % 03/01/2023 10:59 AM EDT [facility] Monocytes % 7.6 1.0 - 11.0 % 03/01/2023 10:59 AM EDT [facility] Eosinophils % 1.2 0.0 - 6.0 % 03/01/2023 10:59 AM EDT [facility] Basophils % 0.3 0.0 - 2.0 % 03/01/2023 10:59 AM EDT [facility] Immature Granulocytes % 0.6 0.0 - 2.0 % 03/01/2023 10:59 AM EDT [facility] Absolute Neutrophils 1.85 1.80 - 7.70 K/uL 03/01/2023 10:59 AM EDT [facility] Absolute Lymphocytes 1.25 1.00 - 4.80 K/ul 03/01/2023 10:59 AM EDT [facility] Absolute Monocytes 0.26 0.00 - 1.10 K/uL 03/01/2023 10:59 AM EDT [facility] Absolute Eosinophils 0.04 0.00 - 0.70 K/uL 03/01/2023 10:59 AM EDT [facility] Absolute Basophils 0.01 0.00 - 0.20 K/uL 03/01/2023 10:59 AM EDT [facility] Absolute Immature Granulocytes 0.02 0.00 - 0.20 K/uL 03/01/2023 10:59 AM EDT [facility] Blood Venous blood specimen / Unknown Venipuncture / Unknown 03/01/2023 10:52 AM EDT 03/01/2023 10:56 AM EDT [facility] [address] [place] [address] * (ABNORMAL) CBC (03/01/2023 10:52 AM EDT) WBC 3.43(L) 4.00 - 10.80 K/uL 03/01/2023 10:59 AM EDT [facility] RBC 3.38 3.85 - 5.15 M/uL 03/01/2023 10:59 AM EDT [facility] HGB 10.1(L) 12.0 - 15.3 g/dL 03/01/2023 10:59 AM EDT [facility] HCT 31.3(L) 36.0 - 45.2 % 03/01/2023 10:59 AM EDT [facility] MCV 92.6 81.5 - 97.5 fL 03/01/2023 10:59 AM EDT [facility] MCH 29.9 27.0 - 34.0 pg 03/01/2023 10:59 AM EDT [facility] MCHC 32.3 32.0 - 36.0 g/dL 03/01/2023 10:59 AM EDT [facility] RDW 14.6 11.5 - 15.5 % 03/01/2023 10:59 AM EDT [facility] PLT 172 140 - 400 K/uL 03/01/2023 10:59 AM EDT [facility] MPV 8.9 6.6 - 11.1 fL 03/01/2023 10:59 AM EDT [facility] nRBCs 0 <=0 /100 WBCs 03/01/2023 10:59 AM EDT [facility] Blood Venous blood specimen / Unknown Venipuncture / Unknown 03/01/2023 10:52 AM EDT 03/01/2023 10:56 AM EDT [facility] S Performing Organization Address City/[facility]/ZIP Co de Phone Number [facility] [address] [place] [address] * TROPONIN T, HIGH SENSITIVITY (03/01/2023 10:52 AM EDT) Troponin T, High Sensitivity 12 <=14 ng/L 03/01/2023 11:15 AM EDT [facility] Blood Venous blood specimen / Unknown Venipuncture / Unknown 03/01/2023 10:52 AM EDT 03/01/2023 10:56 AM EDT [facility] S Performing Organization Address City/[facility]/ZIP Co de Phone Number [facility] [address] [place] [address] * (ABNORMAL) COMPREHENSIVE METABOLIC PANEL (03/01/2023 10:52 AM EDT) BUN 26(H) 6 - 20 mg/dL 03/01/2023 11:15 AM EDT LABORATORY [facility] Creatinine 0.7 0.5 - 1.0 mg/dL 03/01/2023 11:15 AM EDT [facility] Estimated Glomerular Filtration Rate >90 >=60 mL/min 03/01/2023 11:15 AM EDT [facility] Comment:eGFR is calculated b ased on the CKD-EPI 2020 equation Sodium 138 135 - 146 mmol/L 03/01/2023 11:15 AM EDT [facility] Potassium 4.6 3.5 - 5.1 mmol/L 03/01/2023 11:15 AM EDT [facility] Chloride 103 98 - 107 mmol/L 03/01/2023 11:15 AM EDT [facility] CO2 28 22 - 32 mmol/L 03/01/2023 11:15 AM EDT [facility] Anion Gap 7 7 - 15 mmol/L 03/01/2023 11:15 AM EDT [facility] Glucose 117 70 - 120 mg/dL 03/01/2023 11:15 AM EDT [facility] Albumin 3.7(L) 3.8 - 5.0 g/dL 03/01/2023 11:15 AM EDT [facility] AST 22 10 - 35 U/L 03/01/2023 11:15 AM EDT [facility] Alkaline Phosphatase 68 35 - 130 U/L 03/01/2023 11:15 AM EDT [facility] Bilirubin, Total 0.2 <=1.2 mg/dL 03/01/2023 11:15 AM EDT [facility] Calcium 8.7 8.4 - 10.2 mg/dL 03/01/2023 11:15 AM EDT [facility] Protein 6.0 6.0 - 8.3 g/dL 03/01/2023 11:15 AM EDT [facility] ALT 15 10 - 35 U/L 03/01/2023 11:15 AM EDT [facility] Blood Venous blood specimen / Unknown Venipuncture / Unknown 03/01/2023 10:52 AM EDT 03/01/2023 10:56 AM EDT [facility] BLOOD ORDERABLE S LAB[facility]ATORY [address] [address] documented in this encounter Visit Diagnoses Diagnosis Closed fracture of one rib of right side, initial encounter- Primary Syncope Syncope and collapse documented in this encounter Administered Medications Inactive Administered Medications - up to 3 most recent administrations Medication Order MAR Action Action Date Dose Rate Site Acetaminophen (Tylenol) tab 975 mg 975 mg, Oral, ONCE, On Tue03/01/23 at 1100, For 1 dose, Maximum of 4 grams (4000 mg) per day. Given 03/01/2023 11:10 AM EDT 975 mg ketorolac (Toradol) 30 MG/ML inj 15 mg 15 mg, Intramuscular, ONCE, On Tue03/01/23 at 1345, For 1 dose, Given 03/01/2023 1:26 PM EDT 15 mg Deltoid Left Lower NSS 0.9% 1,000 mL bolus infusion Peripheral IV, at 1,000 mL/hr Administer over 60 Minutes, Administer entire volume within 60 minutes or less., ONCE, 1 dose, On Tue03/01/23 at 1200 New Bag 03/01/2023 11:38 AM EDT 1,000 mL 1000 mL/hr oxyCODONE (Oxy IR) tab 5 mg 5 mg, Oral, ONCE, On Tue03/01/23 at 1345, For 1 dose Given 03/01/2023 1:29 PM EDT 5 mg documented in this encounter Active and Recently Administered Medications Times are shown in EDT. Scheduled Medication Order 02/27/2023 02/28/2023 03/01/2023 Acetaminophen (Tylenol) tab 975 mg (COMPLETED) 975 mg, Oral, ONCE, On Tue03/01/23 at 1100, For 1 dose, Maximum of 4 grams (4000 mg) per day. 1110 (Given - Provid er: Anjelica Jensen RN) ketorolac (Toradol) 30 MG/ML inj 15 mg (COMPLETED) 15 mg, Intramuscular, ONCE, On Tue03/01/23 at 1345, For 1 dose, 1326 (Given - Provid er: Anjelica Jensen RN) NSS 0.9% 1,000 mL bolus infusion (COMPLETED) Peripheral IV, at 1,000 mL/hr Administer over 60 Minutes, Administer entire volume within 60 minutes or less., ONCE, 1 dose, On Tue03/01/23 at 1200 1138 (New Bag - Prov ider: Edgar Overton RN)1322 (Stopped - Provider: Anjeliac Jensen RN) oxyCODONE (Oxy IR) tab 5 mg (COMPLETED) 5 mg, Oral, ONCE, On Tue03/01/23 at 1345, For 1 dose 1329 (Given - Provid er: Anjelica Jensen RN) documented in this encounter Advance Directives Documents on File Type Date Recorded 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
--- OUTSIDE RECORDS SUMMARY | 2023-08-05 23:23 | External Medical Summary | Summary of Care ---
Author Name Unknown Organization [facility] Address [address] [place] [facility] [place] [address] Phone [phone] Care Team Providers Care Director Name Role Phone Héctor Johnson MD Primary Care Provider [phone] Reason for Visit * Reason Comments Abdominal Pain * Auth/Cert Specialty Diagnoses / Procedures Referred By Rachel urena Referred To Contact Referral ID Status Reason Start Date Expiration Date Visits Re quested Visits Authorized [id number] Encounter Details Date Type Department Care Team (Late st Contact Info) Description 03/24/2023 6:15 PM EDT - 03/24/2023 9:13 PM EDT Emergency [facility] Emergency Department ([facility]) [address] [facility] [address] Soraya Gomez, DO [address] [facility] [address] Acute cystitis with hematuria (Primary Dx) Discharge Disposition: Home - Self Care Allergies Active Allergy Reactions Criticality Noted Date Comments Adhesive Tape Rash 04/22/2014 documented as of this encounter (statuses as of 03/25/2023) Medications Medication Sig Dispensed Refills Start Date End Date Status ASPIRIN 81 MG PO TABSIndications:DM type 2, goal A1c below 7 ONE DAILY 30 Tab 5 04/01/2011 Active Cranberry 1000 MG Capsule Start: 01/13/19 9:00:00 EDT, PO, Daily 0 01/13/2019 Active Apple Cider Vinegar 188 MG CAPS Start: 01/13/19 14:02:00 EDT, Apple cider vinegar, PO, bid 0 01/13/2019 Active Lancets (ONETOUCH DELICA PLUS [id number]) MISCIndications:Type 2 diabetes mellitus with hemoglobin A1c goal of less than 8.0% (HCC) Use to check blood sugar up to 3 times per day E11.9 100 Each 11 01/17/2020 Active Pen [place] 32G X 4 MMIndications:Type 2 diabetes mellitus [...] suspected opioid overdose. Seek immediate medical attention. [email or web address]?[email or web address] 1 Each 3 03/01/2023 Active Alendronate Sodium [...] for 7 days. 21 Capsule 0 03/24/2023 Active documented as of this encounter (statuses as of 03/25/2023) Active Problems Problem Noted Date Diagnosed Date Chronic bilateral thoracic back pain 07/26/2022 Recurrent major depressive disorder 11/09/2021 Encounter for examination fo r normal comparison and control in clinical research program 01/03/2020 Overview: [employer]: A Randomized Controlled Trial (Project # [id number]). The [employer] program provides food-insecure diabetics with healthy food for their entire household (2 meals/ day X 5 days/week). The program also provides education on food preparation, healthy living, and diabetes self management. The research measures the effects of the program on patient health and wellbeing. Subject will begin the F[employer] program December 2019. Contact Information: Presidential Support Specialist: Dr. Palmer Anders ([phone]) CRC: Glory Arteaga ([phone]) RA: Chiara Laura ([phone]) Diagnosis changed due to Research Module. Go [...] as of this encounter (statuses as of 03/25/2023) Resolved Problems Problem Noted Date Diagnosed Date [...] On prozac, was inc to 30 mg Mhe41Hu.Still.,wean 04/18/2007 Screening for malignant neoplasm of cervix 01/16/2007 06/08/2010 Overview: PAP--[facility]azd18--EG[facility]Grill.[facility] , had post Fu and [...] as of this encounter (statuses as of 03/25/2023) Immunizations Name Administration Dates Next Due COVID-19 mRNA, LNP-s, No Pre serve, 2-Dose Series (Clever) 05/01/2021 Hepatitis B, 20+ yrs 11/28/1995,07/28/1994,05/30 PPD [...] Sign Reading Time Taken Comments Blood Pressure 108/80 03/24/2023 6:15 PM EDT Pulse 103 03/24/2023 6:15 PM EDT Temperature 37.3 C (99.1 F) 03/24/2023 6:15 PM ED T Respiratory Rate 20 03/24/2023 6:15 PM EDT Oxygen Saturation 99% 03/24/2023 6:15 PM EDT Inhaled Oxygen Concentration - - Weight 84.4 kg (186 lb) 03/24/2023 6:15 PM EDT Height 167.6 cm (5' 6") 03/24/2023 6:15 PM EDT Body Mass Index 30.02 03/24/2023 6:15 PM EDT documented in this encounter ED Notes * Soraya Gomez, DO - 03/24/2023 6:23 PM EDT HISTORY OF PRESENT ILLNESS Miguel Manuel is a 57 year old female who presents to the ED for evaluation of Abdominal Pain. Thepatient was seen at 03/24/231816. Patient is a 57-year-old female who presents a chief complaint of abdominal pain, nausea vomiting. The patient has past medical history of diabetes, hypertension, hyperlipidemia, hypothyroidism, depression, migraine disorder. The patient states that today she had onset of mostly lower abdominal pain but then it worsened to be more diffuse throughout the day. Shedoes admit to multiple episodes of nausea with nonbloody nonbilious emesis. No diarrhea. No associated fevers, chills, chest pain, shortness of breath. No history of abdominal surgeries in the past. Denies any urinary symptoms. No suspicious food intake or new medications. No other treatment prior to arrival. History provided by: patient psychiatric aide instructor used: No Abdominal Pain Associated symptoms: nausea and vomiting Associated symptoms: no chest pain, no chills, no constipation, no cough, no diarrhea, no dysuria, no fatigue, no fever, no hematuria, no shortness of breath and no sore throat Review of Systems Constitutional: Negative for chills, fatigue and fever. HENT: Negative for congestion, rhinorrhea, sinus pressure, sinus pain, sneezing and sore throat. Eyes: Negative for photophobia and visual disturbance. Respiratory: Negative for cough, shortness of breath and wheezing. Cardiovascular: Negative for chest pain and palpitations. Gastrointestinal: Positive for abdominal pain, nausea and vomiting. Negative for constipation and diarrhea. Genitourinary: Negative for dysuria, frequency and hematuria. Musculoskeletal: Negative for back pain, neck pain and neck stiffness. Skin: Negative for rash and wound. Neurological: Negative for dizziness, light-headedness and headaches. Psychiatric/Behavioral: Negative for agitation, behavioral problems and confusion. The patient's allergies, past history, and medications were reviewed. PHYSICAL EXAM Initial Vitals (see all): BP 108/80 | Pulse 103 | Resp 20 | Temp 99.1 | O2 99 %Weight 84.37 kg | Height 167.6 cm | BMI 30.02 kg/m2 Initial Pain Assessment (see all): 10 (severe pain)/10, location: abdomen ([facility] Adult Scale 0-10) Physical Exam Constitutional: General: She is not in acute distress. Appearance: She is not toxic-appearing. HENT: Head: Normocephalic. Mouth/Throat: Mouth: Mucous membranes are dry. Eyes: General: No scleral icterus. Pupils: Pupils are equal, round, and reactive to light. Cardiovascular: Rate and Rhythm: Tachycardia present. Heart sounds: No murmur heard. No gallop. Pulmonary: Effort: No respiratory distress. Breath sounds: Normal breath sounds. No wheezing. Comments: Clear breath sounds in all lung contreras. No acute respiratory distress. Pulse ox 99% on room air. Abdominal: Tenderness: There is abdominal tenderness. Comments: Patient does have diffuse abdominal tenderness palpation. Abdomen is soft, no rigidity orguarding. Musculoskeletal: General: No swelling or deformity. Normal range of motion. Cervical back: No rigidity. Lymphadenopathy: Cervical: No cervical adenopathy. Skin: General: Skin is warm. Capillary Refill: Capillary refill takes less than 2 seconds. Coloration: Skin is not jaundiced. Findings: No bruising. Neurological: Mental Status: She is alert and oriented to person, place, and time. Cranial Nerves: No cranial nerve deficit. Motor: No weakness. PROCEDURES AND TREATMENTS ED Orders | ED Results MEDICAL DECISION MAKING Nursing notes and vital signs were reviewed. ED Course as of 03/24/232041 Abril Mar 24, 2023 1840 Chest x-ray was performed I do not see any free air underneath the abdomen. [MS] 2039 Patient was updated on her laboratory results. She will be discharged home this time after Rocephin. [MS] ED Course User Index [MS] Soraya Gomez DO Patient is a 57-year-old female who presents with a chief complaint of abdominal pain that started today has gotten worse. She does admit to nausea vomiting as well. Patient was found have urinary tract infection. Labs otherwise are stable, CT scan now show any other abnormality. Patient was given 1 dose of Rocephin in the emergency department she will be discharged home with a prescription. She d id receive Zofran IV fluids as well as pain medication. She is feeling much better at this time. Amount and/or Complexity of Data Reviewed Labs: ordered. Radiology: ordered. Risk Prescription drug management. Clinical Impressions Acute cystitis with hematuria Disposition Discharged. The patient's condition at disposition was: stable. Discharge Medications Disp Refills Start End Cephalexin 500 MG Oral Capsule 21 Capsule 0 03/24/2023 03/31/2023 Sig - Route: Take 1 Capsule by mouth in the morning and 1 Capsule at noon and 1 Capsule before bedtime. Do all this for 7 days. - Oral Class: ePrescribing Renewals Renewal requests to authorizing provider (Soraya Gomez DO) <b>prohibited</b> Soraya Gomez * Jean Claude Correa RN - 03/24/2023 6:13 PM EDT Pt c/o abdominal pain that started today and has become worse within the last hour. documented in this encounter Miscellaneous Notes * ED Mother Tester Note - Zainab Smith RN - 03/24/2023 9:12 PM EDT 2111. Pt verbalized understanding of discharge instructions. Made aware of prescription sent to pharmacy and how to take it. Advised to follow up with PCP and to return for any worsening symptoms. Ptambulated steadily out of unit with belongings. * Pt Handout (on AVS) - Soraya Gomez, - 03/24/2023 8:41 PM EDT Images from the original note were not included. [id number] Bladder Infection, Female (Adult) Urine normally doesn't have any germs (bacteria) in it. But bacteria can get into the urinary tractfrom the skin around the rectum. Or they can travel in the blood from other parts of the body. Oncethey are in your urinary tract, they can cause infection in these areas: The urethra (urethritis) The bladder (cystitis) The kidneys (pyelonephritis) The most common place for an infection is in the bladder. This is called a bladder infection. This is one of the most common infections in women because women have a shorter urethra than men. Bacteria have a shorter distance to travel to reach the bladder.. Women who have gone through menopause also lose the protection from estrogen that lowers the chance of getting a UTI. And some women are at higher risk because of their genes. Most bladder infections are easily treated. They are not serious unless the infection spreads to the kidney. The terms bladder infection, UTI, and cystitis are often used to describe the same thing. But they are not always the same. Cystitis is an inflammation of the bladder. The most common cause of cystitis is an infection. Symptoms The infection causes inflammation in the urethra and bladder. This causes many of the symptoms. Themost common symptoms of a bladder infection are: Pain or burning when urinating Having to urinate more often than normal Urgent need to urinate Only a small amount of urine comes out Blood in urine Belly (abdominal) discomfort. This is often in the lower belly above the pubic bone. Lower back pain Cloudy urine Strong- or bad-smelling urine Unable to urinate (urinary retention) Unable to hold urine in (urinary incontinence) Fever Loss of appetite Confusion (in older adults) Causes Bladder infections are not contagious. You can't get one from someone else, from a toilet seat, or from sharing a bath. The most common cause of bladder infections is bacteria from the bowels. The bacteria get onto the skin around the opening of the urethra. From there, they can get into the urine. Then they travel upto the bladder, causing inflammation and infection. This often happens because of: Wiping incorrectly after urinating. Always wipe from front to back. Bowel incontinence . During urinary tract changes raise the risk for infection. Procedures such as having a catheter put in Older age Not emptying your bladder. This can give bacteria a chance to grow in your urine. Fluid loss (dehydration) Constipation Having sex Using a diaphragm for control Treatment Bladder infections are diagnosed by a urine test and urine culture. They are treated with antibiotics. They often clear up quickly without problems. Treatment helps prevent a more serious kidney infection. Medicines Medicines can help in the treatment of a bladder infection: Take antibiotics until they are used up, even if you feel better. It's important to finish them to make sure the infection has cleared. You can use acetaminophen or ibuprofen for pain, fever, or discomfort, unless another medicine was prescribed. If you have long-term (chronic) liver or kidney disease, talk with your healthcare provider before using these medicines. Also talk with your provider if you've ever had a stomach ulceror GI (gastrointestinal) bleeding, or are taking blood-thinner medicines. If you are given phenazopydridine to reduce burning with urination, it will make your urine a bright orange color. This can stain clothing. Care and prevention These self-care steps can help prevent future infections: Drink plenty of fluids. This helps to prevent dehydration and flush out your bladder. Do this unless you must restrict fluids for other health reasons, or your healthcare provider told you not to. Clean yourself correctly after going to the bathroom. Wipe from front to back after using the toilet. This helps prevent the spread of bacteria. Urinate more often. Don't try to hold urine in for a long time. Wear loose-fitting clothes and cotton underwear. Don't wear tight-fitting pants. Improve your diet and prevent constipation. Eat more fresh fruits and vegetables, and fiber. Eatless junk foods and fatty foods. Don't have sex until your symptoms are gone. Don't have caffeine, alcohol, and spicy foods. These can irritate your bladder. Urinate right after you have sex to flush out your bladder. If you use control pills and have frequent bladder infections, discuss it with your healthcare provider. Follow-up care Call your healthcare provider if all symptoms are not gone after 3 days of treatment. This is especially important if you have repeat infections. If a culture was done, you will be told if your treatment needs to be changed. If directed, you cancall to find out the results. If X-rays were done, you will be told if the results will affect your treatment. Call 911 Call 911 if any of the following occur: Trouble breathing Hard to wake up or confusion Fainting (loss of consciousness) Fast heart rate When to get medical advice Call your healthcare provider right away if any of these occur: Fever of 100.4F (38.0C) or higher, or as directed by your healthcare provider Symptoms are not better after 3 days of treatment Symptoms get worse or you have new symptoms Back or belly pain that gets worse Repeated vomiting, or unable to keep medicine down Weakness or dizziness Vaginal discharge Pain, redness, or swelling in the outer vaginal area (labia) Last Reviewed Date: 05/30/202119996014-5013 [employer]. All rights reserved. This information is not intended as a substitute for professional medical care. Always follow your healthcare professional's instructions. * ED Mother Tester Note - Diana Gunn RN - 03/24/2023 6:25 PM EDT Patient presents to the ED for abdominal pain and nausea. Per patient she was not feeling well thismorning with chills stomachache and nausea. Patient took zofran and imitrex for a migraine and tooka nap. Upon waking, patient with severe abdominal pain and vomiting. Patient AAOx4, lungs clear andequal, respirations unlabored. Heart rate regular, no edema. Patient with tenderness in right upperand right lower quadrant. Bowel sounds present in all quadrants and abdomen soft. Call modi within reach and bed rails up. documented in this encounter Plan of Treatment Upcoming Encounters Date Type Department Care Team (Late st Contact Info) Description 02/01/2024 10:00 AM EDT Office Visit [facility] [address] [phone] Héctor Johnson MD [address] [phone] Pending Results Name Type Priority Associated Diagnoses Date /Time CULTURE, URINE, QUANTITATIVE Lab STAT 03/24/2023 8:54 PM EDT Scheduled Orders Name Type Priority Associated Diagnoses Orde r Schedule CULTURE, URINE, QUANTITATIVE Lab STAT Perform Now for 1 Occurrences starting 03/24/2023 until 03/24/2023 Scheduled Procedures Name Priority Associated Diagnoses Date/Ti [...] Procedure Name Priority Date/Time Associated Diagnosis Comments MICROSCOPIC EXAM, URINE STAT 03/24/2023 8:16 PM EDT URINALYSIS, REFLEX TO MICROSCOPIC STAT 03/24/2023 8:[address] ABD/PELVIS W IV CONTRAST - WO ORAL CONTRAST STAT 03/24/2023 7:24 PM EDT DIFFERENTIAL, AUTOMATED STAT 03/24/2023 6:44 PM EDT COMPREHENSIVE METABOLIC PANEL STAT 03/24/2023 6:44 PM EDT CBC STAT 03/24/2023 6:44 PM EDT LIPASE STAT 03/24/2023 6:44 PM EDT LACTATE STAT 03/24/2023 6:44 PM EDT CBC STAT 03/24/2023 6:44 PM EDT XR CHEST 1 VIEW STAT 03/24/2023 6:39 PM EDT documented in this encounter Results * (ABNORMAL) MICROSCOPIC EXAM, URINE (03/24/2023 8:16 PM EDT) RBC, Urine 50+(A) 0 - 2 /HPF 03/24/2023 8:47 PM EDT [facility] WBC, Urine 50+(A) 0 - 2 /HPF 03/24/2023 8:47 PM EDT [facility] Bacteria, Urine 151-200(A) 0 - 25 /HPF 03/24/2023 8:47 PM EDT [facility] Urine Non-blood Collection / Unknown 03/24/2023 8:16 PM EDT 03/24/2023 8:22 PM EDT Soraya Gomez DO LAB URINE [facility] [address] [place] [address] * (ABNORMAL) URINALYSIS, REFLEX TO MICROSCOPIC (03/24/2023 8:16 PM EDT) Color, Urine Yellow Light Yellow, Yellow, Dark Yellow 03/24/2023 8:30 PM EDT [facility] Clarity, Urine Cloudy(A) Clear 03/24/2023 8:30 PM EDT [facility] Glucose, Urine >=1000(A) Negative mg/dL 03/24/2023 8:30 PM EDT [facility] Bilirubin, Urine Negative Negative 03/24/2023 8:30 PM EDT [facility] Ketone, Urine Negative Negative mg/dL 03/24/2023 8:30 PM EDT [facility] Specific Decker, Urine 1.041(H) 1.003 - 1.030 03/24/2023 8:30 PM EDT [facility] Blood, Urine Large(A) Negative 03/24/2023 8:30 PM EDT [facility] pH, Urine 6.0 5.0 - 7.5 Units 03/24/2023 8:30 PM EDT [facility] Protein, Urine 30(A) Negative mg/dL 03/24/2023 8:30 PM EDT [facility] Urobilinogen, Urine 0.2 0.2, 1.0 mg/dL 03/24/2023 8:30 PM EDT [facility] Nitrite, Urine Positive(A) Negative 03/24/2023 8:30 PM EDT [facility] Esterase, Urine Large(A) Negative 03/24/2023 8:30 PM EDT [facility] Urine Non-blood Collection / Unknown 03/24/2023 8:16 PM EDT 03/24/2023 8:22 PM EDT Soraya Gomez DO LAB URINE [facility] FLOR[facility] Performing Organization Address City/State/[facility] Co de Phone Number LABORATORY [address] [address] * CT ABD/PELVIS W IV CONTRAST - WO ORAL CONTRAST (03/24/2023 7:24 PM EDT) Anatomical Region Laterality Modality Body, Abdomen, Pelvis Computed T omography 03/24/2023 7:17 PM EDT Impressions 03/24/2023 8:00 PM EDT IMPRESSION: 1. Findings concerning for urinary tract infection with wall thickening and prominence of the bilateral renal pelvises and ureters without obstructing calculus. 2. Nondependent air within the bladder which could be secondary to prior instrumentation versus infectious process. Recommend correlation with urinalysis to exclude cystitis. THIS DOCUMENT HAS BEEN ELECTRONICALLY SIGNED BY FREDDY HANNAH MD Narrative 03/24/2023 8:00 PM EDT PROCEDURE INFORMATION: Exam: CT Abdomen And Pelvis With Contrast Exam date and time: 03/24/2023 7:17 PM Age: 57 years old Clinical indication: Other: Lower abdominal pain TECHNIQUE: Imaging protocol: Computed tomography of the abdomen and pelvis with contrast. Radiation optimization: All CT scans at this facility use at least one of these dose optimization techniques: automated exposure control; mA and/or kV adjustment per patient size (includes targeted exams where dose is matched to clinical indication); or iterative reconstruction. Contrast material: OPTI 350; Contrast volume: 100 ml; Contrast route: INTRAVENOUS (IV); REPORTING DATA: Count of CT and Cardiac NM exams in prior 12 months: This patient has received 3 known CTs and 0 known cardiac nuclear medicine studies in the 12 months prior to the current study. COMPARISON: CT ABDOMEN /PELVIS WIT 04/01/2016 2:12 PM FINDINGS: Lungs: Lung bases demonstrate dependent atelectasis. Liver: Normal. No mass. Gallbladder and bile ducts: Normal. No calcified stones. No ductal dilation. Pancreas: Normal. No ductal dilation. Spleen: Normal. No splenomegaly. Adrenal glands: Normal. No mass. Kidneys and ureters: There is mild prominence of the bilateral renal pelvises and ureters with mild wall thickening. No obstructing calculus. Stomach and bowel: Unremarkable. No obstruction. No mucosal thickening. Appendix: No evidence of appendicitis. Intraperitoneal space: Unremarkable. No free air. No significant fluid collection. Vasculature: Mild atherosclerosis of the abdominal aorta. No abdominal aortic aneurysm. Lymph nodes: Unremarkable. No enlarged lymph nodes. Urinary bladder: Bladder is distended with non dependent air within the lumen. No abnormal bladder wall thickening. Reproductive: Unremarkable as visualized. Bones/joints: Unremarkable. No acute fracture. Soft tissues: Unremarkable. Procedure Note Freddy Hannah MD - 03/24/2023 PROCEDURE INFORMATION: Exam: CT Abdomen And Pelvis With Contrast Exam date and time: 03/24/2023 7:17 PM Age: 57 years old Clinical indication: Other: Lower abdominal pain TECHNIQUE: Imaging protocol: Computed tomography of the abdomen and pelvis withcontrast. Radiation optimization: All CT scans at this facility use at least one ofthese dose optimization techniques: automated exposure control; mA and/or kV adjustment per patient size (includes targeted exams where dose is matchedto clinical indication); or iterative reconstruction. Contrast material: OPTI 350; Contrast volume: 100 ml; Contrast route: INTRAVENOUS (IV); REPORTING DATA: Count of CT and Cardiac NM exams in prior 12 months: This patient hasreceived 3 known CTs and 0 known cardiac nuclear medicine studies in the 12 monthsprior to the current study. COMPARISON: CT ABDOMEN /PELVIS WIT 04/01/2016 2:12 PM FINDINGS: Lungs: Lung bases demonstrate dependent atelectasis. Liver: Normal. No mass. Gallbladder and bile ducts: Normal. No calcified stones. No ductaldilation. Pancreas: Normal. No ductal dilation. Spleen: Normal. No splenomegaly. Adrenal glands: Normal. No mass. Kidneys and ureters: There is mild prominence of the bilateral renalpelvises and ureters with mild wall thickening. No obstructing calculus. Stomach and bowel: Unremarkable. No obstruction. No mucosal thickening. Appendix: No evidence of appendicitis. Intraperitoneal space: Unremarkable. No free air. No significant fluid collection. Vasculature: Mild atherosclerosis of the abdominal aorta. No abdominalaortic aneurysm. Lymph nodes: Unremarkable. No enlarged lymph nodes. Urinary bladder: Bladder is distended with non dependent air within thelumen. No abnormal bladder wall thickening. Reproductive: Unremarkable as visualized. Bones/joints: Unremarkable. No acute fracture. Soft tissues: Unremarkable. IMPRESSION IMPRESSION: 1. Findings concerning for urinary tract infection with wall thickeningand prominence of the bilateral renal pelvises and ureters without obstructing calculus. 2. Nondependent air within the bladder which could be secondary to prior instrumentation versus infectious process. Recommend correlation with urinalysis to exclude cystitis. THIS DOCUMENT HAS BEEN ELECTRONICALLY SIGNED BY FREDDY HANNAH MD Soraya Gomez DO RAD CT * DIFFERENTIAL, AUTOMATED (03/24/2023 6:44 PM EDT) WBC 6.32 4.00 - 10.80 K/uL 03/24/2023 6:51 PM EDT [facility] Neutrophils % 67.7 40.0 - 75.0 % 03/24/2023 6:51 PM EDT [facility] Lymphocytes % 24.1 18.0 - 42.0 % 03/24/2023 6:51 PM EDT [facility] Monocytes % 7.3 1.0 - 11.0 % 03/24/2023 6:51 PM EDT [facility] Eosinophils % 0.3 0.0 - 6.0 % 03/24/2023 6:51 PM EDT [facility] Basophils % 0.3 0.0 - 2.0 % 03/24/2023 6:51 PM EDT LABORATORY GL Immature Granulocytes % 0.3 0.0 - 2.0 % 03/24/2023 6:51 PM EDT LABORATORY GL Absolute Neutrophils 4.28 1.80 - 7.70 K/uL 03/24/2023 6:51 PM EDT LABORATORY GL Absolute Lymphocytes 1.52 1.00 - 4.80 K/ul 03/24/2023 6:51 PM EDT LABORATORY [facility] Absolute Monocytes 0.46 0.00 - 1.10 K/uL 03/24/2023 6:51 PM EDT LABORATORY [facility] Absolute Eosinophils 0.02 0.00 - 0.70 K/uL 03/24/2023 6:51 PM EDT LABORATORY [facility] Absolute Basophils 0.02 0.00 - 0.20 K/uL 03/24/2023 6:51 PM EDT LABORATORY GL Absolute Immature Granulocytes 0.02 0.00 - 0.20 K/uL 03/24/2023 6:51 PM EDT LABORATORY [facility] Blood Venous blood specimen / Unknown Venipuncture / Unknown 03/24/2023 6:44 PM EDT 03/24/2023 6:49 PM EDT Soraya Gomez DO LAB BLOOD ZAYRA FLORES LABORATORY [facility] [address] [place] [address] * (ABNORMAL) CBC (03/24/2023 6:44 PM EDT) Pathologist [facility] WBC 6.32 4.00 - 10.80 K/uL 03/24/2023 6:51 PM EDT LABORATORY GL RBC 3.87 3.85 - 5.15 M/uL 03/24/2023 6:51 PM EDT LABORATORY [facility] HGB 11.8(L) 12.0 - 15.3 g/dL 03/24/2023 6:51 PM EDT LABORATORY [facility] HCT 34.4(L) 36.0 - 45.2 % 03/24/2023 6:51 PM EDT LABORATORY [facility] MCV 88.9 81.5 - 97.5 fL 03/24/2023 6:51 PM EDT LABORATORY [facility] MCH 30.5 27.0 - 34.0 pg 03/24/2023 6:51 PM EDT LABORATORY GL MCHC 34.3 32.0 - 36.0 g/dL 03/24/2023 6:51 PM EDT LABORATORY GL RDW 14.7 11.5 - 15.5 % 03/24/2023 6:51 PM EDT LABORATORY GL PLT 222 140 - 400 K/uL 03/24/2023 6:51 PM EDT LABORATORY GL MPV 8.9 6.6 - 11.1 fL 03/24/2023 6:51 PM EDT LABORATORY GL nRBCs 0 <=0 /100 WBCs 03/24/2023 6:51 PM EDT LABORATORY GL Blood Venous blood specimen / Unknown Venipuncture / Unknown 03/24/2023 6:44 PM EDT 03/24/2023 6:49 PM EDT Soraya Gomez DO LAB BLOOD ORDTiffani FLORES LABORATORY [address] [id number] * LIPASE (03/24/2023 6:44 PM EDT) Pathologist [facility] Lipase 29 13 - 60 U/L 03/24/2023 7:07 PM EDT LABORATORY GL Blood Venous blood specimen / Unknown Venipuncture / Unknown 03/24/2023 6:44 PM EDT 03/24/2023 6:49 PM EDT Soraya Gomez DO LAB BLOOD ORDTiffani FLORES LABORATORY [address] [id number] * (ABNORMAL) LACTATE (03/24/2023 6:44 PM EDT) Lactate 2.4(H) 0.4 - 2.0 mmol/L 03/24/2023 7:05 PM EDT LABORATORY GL Blood Venous blood specimen / Unknown Venipuncture / Unknown 03/24/2023 6:44 PM EDT 03/24/2023 6:49 PM EDT Soraya Gomez DO LAB BLOOD [facility]OR[facility]AT[facility] [address] [id number] * (ABNORMAL) COMPREHENSIVE METABOLIC PANEL (03/24/2023 6:44 PM EDT) BUN 32(H) 6 - 20 mg/dL 03/24/2023 7:07 PM EDT LABORATORY GL Creatinine 0.8 0.5 - 1.0 mg/dL 03/24/2023 7:07 PM EDT LABORATORY [facility] Estimated Glomerular Filtration Rate 86 >=60 mL/min 03/24/2023 7:07 PM EDT LABORATORY [facility] Comment:eGFR is calculated b ased on the CKD-EPI 2020 equation Sodium 135 135 - 146 mmol/L 03/24/2023 7:07 PM EDT LABORATORY [facility] Potassium 4.2 3.5 - 5.1 mmol/L 03/24/2023 7:07 PM EDT LABORATORY [facility] Chloride 98 98 - 107 mmol/L 03/24/2023 7:07 PM EDT LABORATORY [facility] CO2 22 22 - 32 mmol/L 03/24/2023 7:07 PM EDT LABORATORY [facility] Anion Gap 15 7 - 15 mmol/L 03/24/2023 7:07 PM EDT LABORATORY [facility] Glucose 120 70 - 120 mg/dL 03/24/2023 7:07 PM EDT LABORATORY [facility] Albumin 4.2 3.8 - 5.0 g/dL 03/24/2023 7:07 PM EDT LABORATORY [facility] AST 25 10 - 35 U/L 03/24/2023 7:07 PM EDT LABORATORY [facility] Alkaline Phosphatase 84 35 - 130 U/L 03/24/2023 7:07 PM EDT LABORATORY [facility] Bilirubin, Total 0.6 <=1.2 mg/dL 03/24/2023 7:07 PM EDT LABORATORY [facility] Calcium 9.7 8.4 - 10.2 mg/dL 03/24/2023 7:07 PM EDT LABORATORY [facility] Protein 6.8 6.0 - 8.3 g/dL 03/24/2023 7:07 PM EDT LABORATORY GL[facility] ALT 16 10 - 35 U/L 03/24/2023 7:07 PM EDT LABORATORY [facility] Blood Venous blood specimen / Unknown Venipuncture / Unknown 03/24/2023 6:44 PM EDT 03/24/2023 6:49 PM EDT Soraya Gomez DO LAB BLOOD ORDTiffani FLORES Performing Organization Address City/State/[facility] Co de Phone Number LABORATORY [facility] [address] [place] [phone] * XR CHEST 1 VIEW (03/24/2023 6:39 PM EDT) Anatomical Region Laterality Modality Chest Digital Radiogra phy 03/24/2023 6:32 PM EDT Impressions 03/24/2023 7:01 PM EDT IMPRESSION: No evidence of intra-abdominal free air assuming radiograph was obtained in the upright position. THIS DOCUMENT HAS BEEN ELECTRONICALLY SIGNED BY JOHN HAMLIN MD Narrative 03/24/2023 7:01 PM EDT PROCEDURE INFORMATION: Exam: XR Chest Exam date and time: 03/24/2023 6:32 PM Age: 57 years old Clinical indication: Other: R/O free air underneath the diaphragm TECHNIQUE: Imaging protocol: Radiologic exam of the chest. Views: 1 view. COMPARISON: CT CHEST WO CONTRAST 03/01/2023 11:16 AM FINDINGS: Lungs: The lungs are well-aerated and clear. No acute infiltrate or consolidation. Pleural spaces: No significant pleural thickening, effusion or pneumothorax. Heart/Mediastinum: Normal cardiac size and contour. No pathologic mediastinal widening. Bones/joints: No significant bony abnormality. Intraperitoneal space: No evidence of intra-abdominal free air. Procedure Note John Hamlin MD - 03/24/2023 PROCEDURE INFORMATION: Exam: XR Chest Exam date and time: 03/24/2023 6:32 PM Age: 57 years old Clinical indication: Other: R/O free air underneath the diaphragm TECHNIQUE: Imaging protocol: Radiologic exam of the chest. Views: 1 view. COMPARISON: CT CHEST WO CONTRAST 03/01/2023 11:16 AM FINDINGS: Lungs: The lungs are well-aerated and clear. No acute infiltrate or consolidation. Pleural spaces: No significant pleural thickening, effusion orpneumothorax. Heart/Mediastinum: Normal cardiac size and contour. No pathologicmediastinal widening. Bones/joints: No significant bony abnormality. Intraperitoneal space: No evidence of intra-abdominal free air. IMPRESSION IMPRESSION: No evidence of intra-abdominal free air assuming radiograph was obtainedin the upright position. THIS DOCUMENT HAS BEEN ELECTRONICALLY SIGNED BY JOHN HAMLIN MD Soraya Gomez DO RADIOLOGY (RAD GENERAL) documented in this encounter Visit Diagnoses Diagnosis Acute cystitis with hematuria- Primary Acute cystitis documented in this encounter Administered Medications Inactive Administered Medications - up to 3 most recent administrations Medication Order MAR Action Action Date Dose Rate Site cefTRIAXone in dextrose (Rocephin) IVPB 1 g IV Piggyback, 1 g, ONCE, 1 dose, On Abril 03/24/23 at 2115, Administer over 30 Minutes New Bag 03/24/2023 8:54 PM EDT 1 g 100 mL/hr fentaNYL (PF) inj 50 mcg 50 mcg, Intravenous, ONCE, On Abril 03/24/23 at 1900, For 1 dose, When given IV Push its recommended that the dose be given over 3 to 5 minutes. Given 03/24/2023 6:49 PM EDT 50 mcg Ioversol (Optiray 350) 74 % inj 100 mL 100 mL, Intravenous, ONCE, On Abril 03/24/23 at 2000, For 1 dose, Radiology Medication Routing (Non-IR) Given 03/24/2023 8:00 PM EDT 100 mL NSS 0.9% 1,000 mL bolus infusion Intravenous, at 1,000 mL/hr Administer over 60 Minutes, Wide open, This infusion may be completed in less than 1 hour, since it will be a wide open rate, ONCE, 1 dose, On Abril 03/24/23 at 1900 New Bag 03/24/2023 6:45 PM EDT 1,000 mL 1000 mL/hr ondansetron (Zofran) inj 4 mg 4 mg, IV Push, ONCE, On Abril 03/24/23 at 1900, For 1 dose Given 03/24/2023 6:49 PM EDT 4 mg documented in this encounter Active and Recently Administered Medications Times are shown in EDT. Scheduled Medication Order 03/22/2023 03/23/2023 03/24/2023 cefTRIAXone in dextrose (Rocephin) IVPB 1 g (COMPLETED) IV Piggyback, 1 g, ONCE, 1 dose, On Abril 03/24/23 at 2114, Administer over 30 Minutes 2053 (New Bag - Prov ider: Zainab Smith, LEA)2111 (Stopped - Provider: Zainab Smith, LEA) fentaNYL (PF) inj 50 mcg (COMPLETED) 50 mcg, Intravenous, ONCE, On Abril 03/24/23 at 1900, For 1 dose, When given IV Push its recommended that the dose be given over 3 to 5 minutes. 1848 (Given - Provid er: Diana Gunn RN) Ioversol (Optiray 350) 74 % inj 100 mL (COMPLETED) 100 mL, Intravenous, ONCE, On Abril 03/24/23 at 2000, For 1 dose, Radiology Medication Routing (Non-IR) 1999 (Given - Provid er: Miri Contreras, RT) NSS 0.9% 1,000 mL bolus infusion (COMPLETED) Intravenous, at 1,000 mL/hr Administer over 60 Minutes, Wide open, This infusion may be completed in less than 1 hour, since it will be a wide open rate, ONCE, 1 dose, On Abril 03/24/23 at 1900 1844 (New Bag - Prov ider: Diana Gunn RN)2056 (Stopped - Provider: Zainab Smith RN) ondansetron (Zofran) inj 4 mg (COMPLETED) 4 mg, IV Push, ONCE, On Abril 03/24/23 at 1900, For 1 dose 1848 (Given - Provid er: Diana Gunn RN) documented in this encounter Advance Directives Documents on File Type Date Recorded 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
--- OUTSIDE RECORDS SUMMARY | 2023-08-05 23:23 | External Medical Summary | Summary of Care ---
Author Name Unknown Organization [facility] Address [address] [address] Phone [phone] Care Team Providers Care Glost Placer Name Role Phone Héctor Johnson MD Primary Care Provider [phone] Reason for Visit * Reason Comments Outpatient Testing Encounter Details Date Type Department Care Team (Late st Contact Info) Description 04/20/2023 8:40 AM EST Laboratory Laboratory, [place] [address] [place] [address] [facility] [address] [facility] [address] Nail abnormalities Allergies Active Allergy Reactions Criticality Noted Date Comments Adhesive Tape Rash 04/22/2014 documented as of this encounter (statuses as of 04/20/2023) Medications Medication Sig Dispensed Refills Start Date End Date Status ASPIRIN 81 MG PO TABSIndications:DM type 2, goal A1c below 7 ONE DAILY 30 Tab 5 04/01/2011 Active Cranberry 1000 MG Capsule Start: 01/13/19 9:00:00 EDT, PO, Daily 0 01/13/2019 Active Apple Cider Vinegar 188 MG CAPS Start: 01/13/19 14:02:00 EDT, Apple cider vinegar, PO, bid 0 01/13/2019 Active Lancets (ONETOUCH DELICA PLUS [id number]) MISCIndications:Type 2 diabetes mellitus with hemoglobin A1c goal of less than 8.0% (HCC) Use to check blood sugar up to 3 times per day E11.9 100 Each 11 01/17/2020 Active Pen [place] 32G X 4 MMIndications:Type 2 diabetes mellitus [...] overdose. Seek immediate medical attention. [email or web address]/[email or web address] 1 Each 3 03/01/2023 Active Additional Information [...] for sedation 28 Capsule 1 03/31/2023 Active Doxycycline Hyclate 100 MG Oral CapsuleIndications:N ail abnormalities Take 1 Capsule by mouth in the morning and 1 Capsule before bedtime. Do all this for 20 days. Until gone.. 40 Capsule 0 04/18/2023 Active Triamcinolone Acetonide 0.1 % External Cream (Aristocort)Indicati ons:Rash of hands Apply topically to affected area 2 times a day for 7 days. To affected area. 15 g 0 04/18/2023 3 Active Tresiba FlexTouch 100 UNIT/ML Subcutaneous Solution Pen-injector (Insulin Degludec)Indications :Type 2 diabetes mellitus with hemoglobin A1c goal of less than 8.0% (HCC) 38 units 0 04/18/2023 Active documented as of this encounter (statuses as of 04/20/2023) Active Problems Problem Noted Date Diagnosed Date Chronic bilateral thoracic back pain 07/26/2022 Recurrent major depressive disorder 11/09/2021 Encounter for examination fo r normal comparison and control in clinical research program 01/03/2020 Overview: [employer]: A Randomized Controlled Trial (Project # [id number]). The [employer] Farm[employer] program provides food-insecure diabetics with healthy food for their entire household (2 meals/ day X 5 days/week). The program also provides education on food preparation, healthy living, and diabetes self management. The research measures the effects of the program on patient health and wellbeing. Subject will begin the FFF program December 2019. Contact Information: Sewage Disposal Worker: Dr. Palmer Anders ([phone]) CRC: Glory Arteaga ([phone]) RA: Chiara Laura ([phone]) Diagnosis changed due to Research Module. Go [...] 02/14/20 Overview: SLUDGE ON U/S, NORMAL HIDA 2007 Varicose vein of leg 12/04/2007 Dyslipidemia, goal LDL below 100 01/17/2006 Calculus of kidney 02/15/2005 Overview: NON OBSTRUCTIVE CALCULUS RIGHT KIDNEY 2008 ADVANCE DIRECTIVE INFORMATION 11/09/2004 Acquired hypothyroidism 07/18/2003 documented as of this encounter (statuses as of 04/20/2023) Resolved Problems Problem Noted Date Diagnosed Date [...] On prozac, was inc to 30 mg [id number].Still.,wean 04/18/2007 Screening for malignant neoplasm of cervix 01/16/2007 06/08/2010 Overview: [facility]hlu14[facility] [place] , had post Fu and [...] as of this encounter (statuses as of 04/20/2023) Immunizations Name Administration Dates Next Due COVID-19 [...] 04/20/2023 10:20 AM EST Office Visit Dermatology [facility], [place] [address] [facility] [address] [address] Tessa Ricci PA-C [address] [facility] [address] [place] [address] 02/01/2024 10:00 AM EDT Office Visit [facility] [address] [phone] Héctor Johnson MD [address] [address] Pending Results Name Type Priority Associated Diagnoses Date /Time CULTURE, FUNGUS, DERM Lab Routine Nail abnormalities 04/20/2023 8:35 AM EST Scheduled Procedures Name Priority Associated Diagnoses Date/Ti [...] as of this encounter Visit Diagnoses Diagnosis Nail abnormalities Unspecified disease of nail documented in this encounter Advance Directives Documents on File Type Date Recorded 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
--- OUTSIDE RECORDS SUMMARY | 2023-08-05 23:23 | External Medical Summary ---
Author Name Unknown Address Unknown Organization [id number]:LABORATORY [facility] - [address] [place] [address] Laboratory Report Ordering Provider Test Date Status MIGUEL SIMENTAL 03/24/2023 20:16:37 Final Observation Date Value Abnormality Reference (Units ) Status Color of Urine by Auto 03/24/2023 20:16:37 Yellow Light Yellow, Yellow, Dark Yellow Final Clarity, Urine 03/24/2023 20:16:37 Cloudy Abnormal Clear Final Glucose [Mass/volume] in Urine by Automated test strip 03/24/2023 20:16:37 >=1000 Abnormal Negative (mg/dL) Final Bilirubin.total [Presence] in Urine by Automated test strip 03/24/2023 20:16:37 Negative Negative Final Ketones [Mass/volume] in Urine by Automated test strip 03/24/2023 20:16:37 Negative Negative (mg/dL) Final Specific gravity, Urine 03/24/2023 20:16:37 1.041 Above high normal 1.003-1.030 Final Hemoglobin [Presence] in Urine by Automated test strip 03/24/2023 20:16:37 Large Abnormal Negative Final pH, Urine 03/24/2023 20:16:37 6.0 5.0-7.5 (Units) Final Protein [Mass/volume] in Urine by Automated test strip 03/24/2023 20:16:37 30 Abnormal Negative (mg/dL) Final Urobilinogen [Mass/volume] in Urine by Automated test strip 03/24/2023 20:16:37 0.2 0.2, 1.0 (mg/dL) Final Nitrite [Presence] in Urine by Automated test strip 03/24/2023 20:16:37 Positive Abnormal Negative Final Leukocyte esterase [Presence] in Urine by Automated test strip 03/24/2023 20:16:37 Large Abnormal Negative Final Performing Location LABORATORY [facility] - [address] [place] [address]
--- OUTSIDE RECORDS SUMMARY | 2023-08-05 23:23 | External Medical Summary ---
Author Name Unknown Address Unknown Organization K01:LABORATORY [facility] [place] [place] - [address] [facility] [address] Laboratory Report Ordering Provider Test Date Status MIGUEL SIMENTAL 03/24/2023 20:54:37 Final <10,000 colonies/ml mixed no rmal prashanth Observation Date Value Abnormality Reference (Units ) Status Bacteria identified in Specimen by Culture 03/24/2023 20:54:37 [id number]^ESCHE RICHIA COLI Abnormal Final >100,000 colonies/mL Escheri william coli Performing Location LABORATORY [facility] [place] [place] - [address] [facility] [id number] Ordering Provider Test Date Status MIGUEL SIMENTAL 03/24/2023 20:54:37 Final Observation Date Value Abnormality Reference (Units ) Status Ampicillin 03/24/2023 20:54:37 >=32 Resistant Final Ampicillin + Sulbactam 03/24/2023 20:54:37 >=32 Resistant Final Cefazolin 03/24/2023 20:54:37 <=4 Susceptible Final Cefepime susceptibility 03/24/2023 20:54:37 <=1 Susceptible Final Ceftriaxone suceptibility 03/24/2023 20:54:37 <=1 Susceptible Final Ciprofloxacin 03/24/2023 20:54:37 <=0.25 Susceptible Final Due to serious side effects, the FDA has advised against using Ciprofloxacin to treat uncomplicated UTIs and respiratory tract infections unless there are no alternative treatment options. Gentamicin susceptibility 03/24/2023 20:54:37 <=1 Susc eptible Final Levofloxacin susceptibility 03/24/2023 20:54:37 <=0.12 Vo sceptible Final Due to serious side effects, the FDA has advised against using Levofloxacin to treat uncomplicated UTIs and respiratory tract infections unless there are no alternative treatment options. Nitrofurantoin susceptibility 03/24/2023 20:54:37 <=16 Susceptible Final Piperacillin + Tazobactamsusceptibility 03/24/2023 20:54:37 <=4 Susceptible Final TMP-SMZ susceptibility 03/24/2023 20:54:37 >=320 Resista nt Final Test: Culture, Urine, Quanti tative
Specimen Source: Urine, Clean Catch
Specimen Type: Urine
Specimen Date: 03/24/2023 8:54 PM
Result Date: 03/27/2023 2:22 PM
Result Status: Final result
Abnormal: Yes
Resulting Lab: LABORATORY [facility] [place] [place]
[address]
[place] [address]

CULTURE

>100,000 colonies/mL Escherichia coli (Abnormal)

<10,000 colonies/ml mixed normal prashanth

SUSCEPTIBILITY

Escherichia coli
METHOD MICROBROTH DILUTIONS

AMPICILLIN >=32 Resistant
AMPICILLIN/SULBACTAM >=32 Resistant
CEFAZOLIN <=4 Susceptible
CEFEPIME <=1 Susceptible
CEFTRIAXONE <=1 Susceptible
CIPROFLOXACIN <=0.25 Susceptible [1]
GENTAMICIN <=1 Susceptible
LEVOFLOXACIN <=0.12 Susceptible [2]
NITROFURANTOIN <=16 Susceptible
PIPERACILLIN TAZOBACTAM <=4 Susceptible
TRIMETH/SULFAMETHOXAZOLE >=320 Resistant

[1] Due to serious side effects, the FDA has advised against using
Ciprofloxacin to treat uncomplicated UTIs and respiratory tract infections
unless there are no alternative treatment options.

[2] Due to serious side effects, the FDA has advised against using
Levofloxacin to treat uncomplicated UTIs and respiratory tract infections
unless there are no alternative treatment options.

null Performing Location LABORATORY [facility] – [place] [place] - [address] [facility] [address]
--- OUTSIDE RECORDS SUMMARY | 2023-08-05 23:23 | External Medical Summary | Summary of Care ---
Author Name Unknown Organization [facility] Address [address] [place] [address] Phone [phone] Care Team Providers Care Rn Community Health Name Role Phone Héctor Johnosn MD Primary Care Provider [phone] Reason for Referral * Evaluate & Treat - Unlimited Visits (Within 10 days (routine)) - Pending Review Specialty Diagnoses / Procedures Referred By Rachel urena Referred To Contact Dermatology Diagnoses Nail abnormalities Rash of hands Josette Reece MD [address] [address] Referral ID Status Reason Start Date Expiration Date Visits Requested Visits Authorized [id number] Pending Review Specialty Services Required 3 [phone] Question Answer Referral Priority Within 10 days (routine) Where should this appointment be scheduled? [facility] Are you referring the patient for Mohs Surgery and have a current positive skin cancer biopsy result? No What is the reason for the patient referral? Rash/Skin Check/Eval of Lesion or Mole Reason for Visit * Reason Comments Acute Pt presents with fun deb under and around fingernails, pt took terbinafine some time ago which cleared it up but unable to have med refilled by PCP. Encounter Details Date Type Department Care Team (Late st Contact Info) Description 04/18/2023 3:20 PM EST Office Visit [facility] Sharmaine Hardin [address] [address] Josette Reece MD [address] [address] Nail abnormalities*; Rash of hands; Type 2 diabetes mellitus with hemoglobin A1c goal of less than 8.0% (HCC) Allergies Active Allergy Reactions Criticality Noted Date Comments Adhesive Tape Rash 04/22/2014 documented as of this encounter (statuses as of 04/18/2023) Medications Medication Sig Dispensed Refills Start Date End Date Status ASPIRIN 81 MG PO TABSIndications:DM type 2, goal A1c below 7 ONE DAILY 30 Tab 5 04/01/2011 Active Cranberry 1000 MG Capsule Start: 01/13/19 9:00:00 EDT, PO, Daily 0 01/13/2019 Active Apple Cider Vinegar 188 MG CAPS Start: 01/13/19 14:02:00 EDT, Apple cider vinegar, PO, bid 0 01/13/2019 Active Lancets (ONETOUCH DELICA PLUS [id number]) MISCIndications:Typ e 2 diabetes mellitus with hemoglobin A1c goal of less than 8.0% (HCC) Use to check blood sugar up to 3 times per day E11.9 100 Each 11 01/17/2020 Active Pen [place] 32G X 4 MMIndications:Type 2 diabetes mellitus [...] 10/20/2022 Active SUMAtriptan Succinate 100 MG Oral TabletIndications:M [...] 02/04/2023 Active Lisinopril 10 MG Oral Tablet (Prinivil)Indicatio ns:HTN, goal below 130/80 TAKE 1 TABLET BY MOUTH EVERY DAY IN THE MORNING 90 Tablet 3 02/18/2023 Active Oxybutynin Chloride 5 MG Oral Tablet (Ditropan)Indicatio ns:Urinary urgency TAKE 1 TABLET BY MOUTH EVERY DAY IN THE MORNING AND BEFORE BEDTIME 180 Tablet 3 02/21/2023 Active Jardiance 25 MG Oral Tablet (Empagliflozin)Ilda cations:Type 2 diabetes mellitus with hemoglobin A1c goal of less than 8.0% ([facility]) TAKE 1 TABLET BY MOUTH EVERY DAY [...] suspected opioid overdose. Seek immediate medical attention. [email or web address] 1 Each 3 03/01/2023 Active Additional Information Patient not taking.Reported on 04/18/2023 Alendronate Sodium 70 MG Oral Tablet (Fosamax) TAKE 1 TAB BY MOUTH ONCE A WEEK W/ 8OZ. WATER 30MIN BEFORE 1ST MEAL OF DAY. REMAIN UPRIGHT X30MIN 12 Tablet 3 03/21/2023 Active tiZANidine HCl 4 MG Oral CapsuleIndications: Sprain lumbar region, initial encounter,Acute left-sided low back pain with left-sided sciatica Take 1 Capsule by mouth 2 times a day as needed for Muscle spasms. hold for sedation 28 Capsule 1 03/31/2023 Active Doxycycline Hyclate 100 MG Oral CapsuleIndications: Nail abnormalities Take 1 Capsule by mouth in the morning and 1 Capsule before bedtime. Do all this for 20 days. Until gone.. 40 Capsule 0 04/18/2023 05/08/20 Active Triamcinolone Acetonide 0.1 % External Cream (Aristocort)Indicat ions:Rash of hands Apply topically to affected area 2 times a day for 7 days. To affected area. 15 g 0 04/18/2023 04/25/20 Active Tresiba FlexTouch 100 UNIT/ML Subcutaneous Solution Pen-injector (Insulin Degludec)Indication s:Type 2 diabetes mellitus with hemoglobin A1c goal of less than 8.0% (HCC) 38 units 0 04/18/2023 Active B-12-SL 1000 MCG Sublingual Tablet Sublingual (Cyanocobalamin)Ind ications:B12 deficiency Place under the tongue 1,000 mcg daily . 90 Tablet 3 03/18/2022 04/18/20 Discontinu ed(Medicat ion/Dose Changed) Tresiba FlexTouch 100 UNIT/ML Subcutaneous Solution Pen-injector (Insulin Degludec)Indication s:Type 2 diabetes mellitus with hemoglobin A1c goal of less than 8.0% (HCC) INJECT 40 UNITS UNDER THE SKIN DAILY 15 mL 5 11/16/2022 11/20/20 23 Discontinu ed(Refill) oxyCODONE HCl 5 MG Oral Tablet (Oxy IR) Take 1 Tablet by mouth every 8 hours as needed for Pain, Breakthrough or Pain, Severe for up to 10 doses. 10 Tablet 0 03/01/2023 04/18/20 23 Discontinu ed(Medicat ion/Dose Changed) documented as of this encounter (statuses as of 04/18/2023) Active Problems Problem Noted Date Diagnosed Date Chronic bilateral thoracic back pain 07/26/2022 Recurrent major depressive disorder 11/09/2021 Encounter for examination fo r normal comparison and control in clinical research program 01/03/2020 Overview: [employer]: A Randomized Controlled Trial (Project # [id number]). The [employer] program provides food-insecure diabetics with healthy food for their entire household (2 meals/ day X 5 days/week). The program also provides education on food preparation, healthy living, and diabetes self management. The research measures the effects of the program on patient health and wellbeing. Subject will begin the FFF program December 2019. Contact Information: Waste Examiner: Dr. Palmer Anders ([phone]) CRC: Glory Arteaga ([phone]) RA: Chiara Laura ([phone]) Diagnosis changed due to Research Module. Go [...] as of this encounter (statuses as of 04/18/2023) Resolved Problems Problem Noted Date Diagnosed Date [...] On prozac, was inc to 30 mg [id number].Still.,wean 04/18/2007 Screening for malignant neoplasm of cervix 01/16/2007 06/08/2010 Overview: PAP--?lcd70--[place].Grill.----is [facility] DrGrill-- Del , had post Fu [...] as of this encounter (statuses as of 04/18/2023) Immunizations Name Administration Dates Next Due COVID-19 [...] Sign Reading Time Taken Comments Blood Pressure 100/62 04/18/2023 3:44 PM EST Pulse 92 04/18/2023 3:44 PM EST Temperature 36.4 C (97.5 F) 04/18/2023 3:44 PM ES T Respiratory Rate 20 04/18/2023 3:44 PM EST Oxygen Saturation 95% 04/18/2023 3:44 PM EST Inhaled Oxygen Concentration - - Weight 86.9 kg (191 lb 8 oz) 04/18/2023 3:44 PM EST Height - - Body Mass Index 30.91 03/24/2023 6:15 PM EDT documented in this encounter Progress Notes * Josette Reece MD - 04/18/2023 3:52 PM EST Images from the original note were not included. History of Present Illness Miguel Manuel is a 57 year old female that presents for Acute (Pt presents with fungus under and around fingernails, pt took terbinafine some time ago which cleared it up but unable to have med refilled by PCP.) Acute visit. Patient reports "nail fungus" on BL hands for 6-8 months, skin around nail is swollen,dry, irritated, tender to touch . Patient took Lamisil for 6 weeks 01/2023 with some improvement. No other rashes, joint pains, fever/chills. Physical Exam Vitals: 04/18/23 1544 Temp: 36.4 C (97.5 F) Pulse: 92 Resp: 20 SpO2: 95% BP: 100/62 BP Readings from Last 3 Encounters: 04/18/23 100/62 03/31/23 102/58 03/24/23 108/80 Wt Readings from Last 3 Encounters: 04/18/23 86.9 kg (191 lb 8 oz) 03/31/23 85.3 kg (188 lb) 03/24/23 84.4 kg (186 lb) BMI Readings from Last 3 Encounters: 04/18/23 30.91 kg/m 03/31/23 30.34 kg/m 03/24/23 30.02 kg/m Physical Exam Constitutional: General: She is not in acute distress. Appearance: Normal appearance. She is not ill-appearing. HENT: Head: Normocephalic and atraumatic. Right Ear: External ear normal. Left Ear: External ear normal. Nose: Nose normal. Mouth/Throat: Mouth: Mucous membranes are moist. Eyes: Pupils: Pupils are equal, round, and reactive to light. Cardiovascular: Rate and Rhythm: Normal rate and regular rhythm. Pulses: Normal pulses. Pulmonary: Effort: Pulmonary effort is normal. Breath sounds: Normal breath sounds. Abdominal: General: There is no distension. Musculoskeletal: Hands: Cervical back: Neck supple. Skin: General: Skin is warm and dry. Findings: Rash present. Comments: Nail pashto+, BL hands skin around nail beds erythematous, swollen , tender to touch, skin is dry, mild peeling on the fingertips Neurological: Mental Status: She is alert and oriented to person, place, and time. Psychiatric: Mood and Affect: Mood normal. Behavior: Behavior normal. I have reviewed the following results: None Assessment and Plan 1. Nail abnormalities - CULTURE, FUNGUS, DERM; Future - Doxycycline Hyclate 100 MG Oral Capsule; Take 1 Capsule by mouth in the morning and 1 Capsule before bedtime. Do all this for 20 days. Until gone.. Dispense: 40 Capsule; Refill: 0 - DERMATOLOGY REFERRAL OP 2. Rash of hands - DERMATOLOGY REFERRAL OP - Triamcinolone Acetonide 0.1 % External Cream (Aristocort); Apply topically to affected area 2 times a day for 7 days. To affected area. Dispense: 15 g; Refill: 0 3. Type 2 diabetes mellitus with hemoglobin A1c goal of less than 8.0% ([facility]) - Tresiba FlexTouch 100 UNIT/ML Subcutaneous Solution Pen-injector (Insulin Degludec); 38 units Wrap-Up As needed Time: I spent a total of 20-29 minutes (exact time 25 mins) on the date of service in preparation, delivery, and documentation of the care provided to Miguel Manuel excluding any time spent in the performance of separately billed services. documented in this encounter Nursing Notes * Verna Gloria LPN - 04/18/2023 3:40 PM EST Chief Complaint Patient presents with Acute Pt presents with fungus under and around fingernails, pt took terbinafine some time ago which cleared it up but unable to have med refilled by PCP. documented in this encounter Plan of Treatment Upcoming Encounters Date Type Department Care Team (Late st Contact Info) Description 04/20/2023 10:20 AM EST Office Visit Dermatology [facility] [place] [address] [place] [address] Tessa Ricci PA-C [address] [place] [address] 02/01/2024 10:00 AM EDT Office Visit [facility] ([place], [place]) [address] [place] [address] Héctor Johnson MD [address] [place] [address] Scheduled Orders Name Type Priority Associated Diagnoses Orde r Schedule CULTURE, FUNGUS, DERM Lab Routine Nail abnormalities Expected: 04/19/2023, Expires: 04/18/2024 Scheduled Procedures Name Priority Associated Diagnoses Date/Ti me COLONOSCOPY FLEXIBLE PROXIMA L DIAGNOSTIC Recall Family history of colon cancer Scheduled Referrals Name Type Priority Associated Diagnoses Orde r Schedule DERMATOLOGY REFERRAL OP Referral Within 10 days (routine) Nail abnormalities Rash of hands Ordered: 04/18/2023 Health Maintenance Due Date Last Done Comments [...] of this encounter Visit Diagnoses Diagnosis Nail abnormalities- Primary Unspecified disease of nail Rash of hands Rash and other nonspecific skin eruption Type 2 diabetes mellitus with hemoglobin A1c goal of less than 8.0% ([facility]) documented in this encounter Advance Directives Documents on File Type Date Recorded Patient Environmental Field Office Manager Expl anation Advance Directives and Living Will 11/02/2005 Power of Truck Bracer 11/02/2005 Care Teams Rn Community Health Relationship Specialty Start Date End Date Héctor Johnson MD [address] [id number] PCP - General Family Medicine 05/20/21 documented as of this encounter
--- OUTSIDE RECORDS SUMMARY | 2023-08-05 23:23 | External Medical Summary | Summary of Care ---
Author Name Unknown Organization [facility] Address [address] [place] [place] [address] Phone [phone] Care Team Providers Care Manager Online Name Role Phone Louie Kaye MD Primary Care Provider [phone] Reason for Visit * Reason Comments eRx-Medication Refill Encounter Details Date Type Department Care Team (Late st Contact Info) Description 03/20/2023 Refill [facility] [address] [facility] [address] [place] [address] Louie Kaye MD [address] [facility] [place] [address] Allergies Active Allergy Reactions Criticality Noted Date Comments Adhesive Tape Rash 04/22/2014 documented as of this encounter (statuses as of 03/21/2023) Medications Medication Sig Dispensed Refills Start Date End Date Status ASPIRIN 81 MG PO TABSIndications:DM type 2, goal A1c below 7 ONE DAILY 30 Tab 5 1 Active Cranberry 1000 MG Capsule Start: 01/13/19 9:00:00 EDT, PO, Daily 0 9 Active Apple Cider Vinegar 188 MG CAPS Start: 01/13/19 14:02:00 EDT, Apple cider vinegar, PO, bid 0 9 Active Lancets (ONETOUCH DELICA PLUS [id number]) MISCIndications:Ty pe 2 diabetes mellitus with hemoglobin A1c goal of less than 8.0% (HCC) Use to check blood sugar up to 3 times per day E11.9 100 Each 11 0 Active Pen [place] 32G X 4 MMIndications:Type 2 diabetes mellitus [...] Oral Tablet (Ibuprofen-diphenh ydrAMINE Cit) Take 2 Tabs by mouth at [...] Active B-12-SL 1000 MCG Sublingual Tablet Sublingual (Cyanocobalamin)In dications:B12 deficiency Place under the tongue 1,000 mcg daily . 90 Tablet 3 2 Active Ozempic (1 MG/DOSE) 4 MG/3ML [...] SKIN DAILY 15 mL 5 3 Active Omeprazole 40 MG Oral Capsule Delayed Release (PriLOSEC)Indicati ons:Gastroesophage al reflux disease without esophagitis TAKE 1 CAPSULE BY MOUTH DAILY 1 HOUR BEFORE THE FIRST MEAL OF THE DAY 90 Capsule 1 3 Active tiZANidine HCl 4 MG Oral CapsuleIndications :Sprain lumbar region, initial encounter,Acute left-sided low back pain with left-sided sciatica Take 1 Capsule by mouth 2 times a day as needed for Muscle spasms. hold for sedation 28 Capsule 0 3 Active Levothyroxine Sodium 150 MCG Oral [...] 5 MG Oral Tablet (Ditropan)Indicati ons:Urinary urgency TAKE 1 TABLET BY MOUTH EVERY DAY IN THE MORNING AND BEFORE BEDTIME 180 Tablet 3 3 Active Jardiance 25 MG Oral Tablet (Empagliflozin)Ind ications:Type 2 diabetes mellitus with hemoglobin A1c goal of less than 8.0% (HCC) TAKE 1 TABLET BY MOUTH EVERY DAY IN THE MORNING 90 Tablet 1 3 Active metFORMIN HCl 1000 MG Oral Tablet (Glucophage)Indica tions:Dyslipidemia , goal LDL below 100 TAKE 1 TABLET BY MOUTH TWICE A DAY 180 Tablet 3 3 Active Atorvastatin Calcium 20 MG Oral Tablet (Lipitor)Indicatio ns:Dyslipidemia, goal LDL below 100 TAKE 1 TABLET BY MOUTH EVERY DAY 90 Tablet 2 3 Active Citalopram Hydrobromide 20 MG Oral Tablet (CeleXA)Indication s:Depression, unspecified depression type TAKE 1 TABLET BY MOUTH EVERY DAY IN THE MORNING 90 Tablet 3 3 Active oxyCODONE HCl 5 MG Oral Tablet (Oxy IR) Take 1 Tablet by mouth every 8 hours as needed for Pain, Breakthrough or Pain, Severe for up to 10 doses. 10 Tablet 0 3 Active Naloxone HCl 4 MG/0.1ML Nasal Liquid (Narcan Nasal) Administer 1 spray into 1 nostril for suspected opioid overdose. Seek immediate medical attention. [email or web address]://[email or web address].com/watch?v= [email or web address] 1 Each 3 3 Active Alendronate Sodium 70 MG Oral Tablet (Fosamax) TAKE 1 TAB BY MOUTH ONCE A WEEK W/ 8OZ. WATER 30MIN BEFORE 1ST MEAL OF DAY. REMAIN UPRIGHT X30MIN 12 Tablet 3 3 Active Alendronate Sodium 70 MG Oral Tablet (Fosamax) TAKE 1 TAB BY MOUTH ONCE A WEEK W/ 8OZ. WATER 30MIN BEFORE 1ST MEAL OF DAY. REMAIN UPRIGHT X30MIN 12 Tablet 2 3 03/21/20 23 Discontinued documented as of this encounter (statuses as of 03/21/2023) Active Problems Problem Noted Date Diagnosed Date Chronic bilateral thoracic back pain 07/26/2022 Recurrent major depressive disorder 11/09/2021 Encounter for examination fo r normal comparison and control in clinical research program 01/03/2020 Overview: [employer]: A Randomized Controlled Trial (Project # [id number]). The [employer] program provides food-insecure diabetics with healthy food for their entire household (2 meals/ day X 5 days/week). The program also provides education on food preparation, healthy living, and diabetes self management. The research measures the effects of the program on patient health and wellbeing. Subject will begin the FFF program December 2019. Contact Information: Mds Nurse: Dr. Palmer Anders ([phone]) CRC: Glory Arteaga ([phone]) RA: Chiara Laura ([phone]) Diagnosis changed due to Research Module. Go [...] as of this encounter (statuses as of 03/21/2023) Resolved Problems Problem Noted Date Diagnosed Date [...] On prozac, was inc to 30 mg [id number].Still.,wean 04/18/2007 Screening for malignant neoplasm of cervix 01/16/2007 06/08/2010 Overview: PAP--?rnf55--[place] [place] , had post Fu and [...] as of this encounter (statuses as of 03/21/2023) Immunizations Name Administration Dates Next Due COVID-19 mRNA, LNP-s, No Pre serve, 2-Dose Series ([employer]) 05/01/2021 Hepatitis B, 20+ yrs 11/28/1995,07/28/1994,05/30 PPD [...] Notes * Telephone Encounter - Nany Martinez [facility] - 03/21/2023 8:29 AM EDTSigned Prescriptions: Disp Refills Alendronate Sodium 70 MG Oral Tablet (Fosa*12 Tab*3 Sig: TAKE 1 TAB BY MOUTH ONCE A WEEK W/ 8OZ. WATER 30MIN BEFORE 1ST MEAL OF DAY. REMAIN UPRIGHT [id number] Provider: LOUIE KAYE User: NANY MARTINEZ documented in this encounter Plan of Treatment Upcoming Encounters Date Type Department Care Team (Late st Contact Info) Description 02/01/2024 10:00 AM EDT Office Visit [facility] [address] [address] Louie Kaye MD [address] [id number] Scheduled Procedures Name Priority Associated Diagnoses Date/Ti [...] Documents on File Type Date Recorded Patient Airport Operations Duty Manager Expl anation Advance Directives and Living Will 11/02/2005 Power of Pipe Organ Mechanic 11/02/2005 Care Teams Manager Online Relationship Specialty Start Date End Date Louie Kaye MD [address] [address] PCP - General Family Medicine 05/20/21 documented as of this encounter
--- OUTSIDE RECORDS SUMMARY | 2023-08-05 23:23 | External Medical Summary | Summary of Care ---
Author Name Unknown Organization [facility] Address [address] [facility] [address] Phone [phone] Care Team Providers Care Hematology Supervisor Name Role Phone Héctor Johnson MD Primary Care Provider [phone] Reason for Visit * Reason Onset Date Comments Advice 03/21/2023 Encounter Details Date Type Department Care Team (Late st Contact Info) Description 03/21/[address] [facility] [address] [address] Héctor Johnson MD [address] [facility] [address] [place] [address] Advice Allergies Active Allergy Reactions Criticality Noted Date [...] 0 01/13/2019 Active Lancets (ONETOUCH DELICA PLUS [id number]) MISCIndications:Type 2 diabetes mellitus with hemoglobin A1c goal of less than 8.0% (HCC) Use to check blood sugar up to 3 times per day E11.9 100 Each 11 01/17/2020 Active Pen [place] 32G X 4 MMIndications:Type 2 diabetes mellitus [...] suspected opioid overdose. Seek immediate medical attention. [email or web address] 1 Each 3 03/01/2023 Active Alendronate Sodium 70 MG Oral Tablet (Fosamax) TAKE 1 TAB BY MOUTH ONCE A WEEK W/ 8OZ. WATER 30MIN BEFORE 1ST MEAL OF DAY. REMAIN UPRIGHT X30MIN 12 Tablet 3 03/21/2023 Active documented as of this encounter (statuses as of 03/21/2023) Active Problems Problem Noted Date Diagnosed Date Chronic bilateral thoracic back pain 07/26/2022 Recurrent major depressive disorder 11/09/2021 Encounter for examination fo r normal comparison and control in clinical research program 01/03/2020 Overview: [employer]: A Randomized Controlled Trial (Project # [id number]). The [employer] program provides food-insecure diabetics with healthy food for their entire household (2 meals/ day X 5 days/week). The program also provides education on food preparation, healthy living, and diabetes self management. The research measures the effects of the program on patient health and wellbeing. Subject will begin the FFF program December 2019. Contact Information: Vp Research: Dr. Palmer Anders ([phone]) CRC: Glory Arteaga ([phone]) RA: Chiara Laura ([phone]) Diagnosis changed due to Research Module. Go [...] On prozac, was inc to 30 mg Sxs18Ph.Still.,wean 04/18/2007 Screening for malignant neoplasm of cervix 01/16/2007 06/08/2010 Overview: PAP--?bku48--[place].Grill.----[facility] DrGrill-- Del , had post Fu and [...] mRNA, LNP-s, No Pre serve, 2-Dose Series ([employer]) 05/01/2021 Hepatitis B, 20+ yrs 11/28/1995,07/28/1994,05/30 PPD [...] encounter Miscellaneous Notes * Telephone Encounter - Vanesa Rojas, BRYCE - 03/21/2023 1:08 PM EDT Appt scheduled. * Telephone Encounter - FELICITY Barrera - 03/21/2023 10:56 AM EDT Pt called asking for a nurse to call back. Pt's both hands & fingertips are numb. The pt also has an infection around the cuticle area on most of her fingers. 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 documented in this encounter Plan of Treatment Upcoming Encounters Date Type Department Care Team (Late st Contact Info) Description 03/23/2023 8:20 AM EDT Office Visit [facility] [address] [phone] Deanna Bright CRNP [address] [phone] 02/01/2024 10:00 AM EDT [facility] [address] [address] Héctor Johnson MD [address] [id number] Scheduled Procedures Name Priority Associated Diagnoses Date/Ti [...] Documents on File Type Date Recorded Patient Welfare Officer Expl anation Advance Directives and Living Will 11/02/2005 Power of Farm Manager 11/02/2005 Care Teams Hematology Supervisor Relationship Specialty Start Date End Date Héctor Johnson MD [address] [address] PCP - General Family Medicine 05/20/21 documented as of this encounter
--- OUTSIDE RECORDS SUMMARY | 2023-08-05 23:23 | External Medical Summary ---
Author Name Unknown Address Unknown Organization K1F:[facility] [address] [place] [address] Laboratory Report Ordering Provider Test Date Status MIGUEL SIMENTAL 03/24/2023 18:44:52 Final Observation Date Value Abnormality Reference (Units ) Status Lactic Acid 03/24/2023 18:44:52 2.4 Above high normal 0.4-2.0 (mmol/L) Final Performing Location [facility] [address] [place] [address]
--- OUTSIDE RECORDS SUMMARY | 2023-08-05 23:23 | External Medical Summary ---
Author Name Unknown Address Unknown Organization K1F:[facility] [address] [facility] [place] [address] Laboratory Report Ordering Provider Test Date Status MIGUEL SIMENTAL 03/24/2023 18:44:52 Final Observation Date Value Abnormality Reference (Units ) Status BUN 03/24/2023 18:44:52 32 Above high normal 6-20 (mg/dL) Final Creatinine 03/24/2023 18:44:52 0.8 0.5-1.0 (mg/dL) Final Glomerular filtration rate/1.73 sq M.predicted [Volume Rate/Area] in Serum, Plasma or Blood by Creatinine-based formula (CKD-EPI) 03/24/2023 18:44:52 86 >=60 (mL/min) Final eGFR is calculated based on the CKD-EPI 2020 equation SODIUM 03/24/2023 18:44:52 135 135-146 (m mol/L) Final Potassium 03/24/2023 18:44:52 4.2 3.5-5.1 (m mol/L) Final Cl 03/24/2023 18:44:52 98 98-107 (mm ol/L) Final CO2 03/24/2023 18:44:52 22 22-32 (mmo l/L) Final Anion gap 03/24/2023 18:44:52 15 7-15 (mmol /L) Final Glucose 03/24/2023 18:44:52 120 70-120 (mg /dL) Final Albumin 03/24/2023 18:44:52 4.2 3.8-5.0 (g /dL) Final AST (Aspartate aminotransferase) 03/24/2023 18:44:52 25 10-35 (U/L) Final Alk Phos 03/24/2023 18:44:52 84 35-130 (U/ L) Final Bilirubin, Total 03/24/2023 18:44:52 0.6 <=1 .2 (mg/dL) Final Calcium 03/24/2023 18:44:52 9.7 8.4-10.2 ( mg/dL) Final Protein 03/24/2023 18:44:52 6.8 6.0-8.3 (g /dL) Final ALT (Alanine aminotransferase) 03/24/2023 18:44:52 16 10-35 (U/L) Final Performing Location [facility] - [address] [place], [place] [address]. [place] [address]
--- OUTSIDE RECORDS SUMMARY | 2023-08-05 23:23 | External Medical Summary | Summary of Care ---
Author Name Unknown Organization [facility] Address [address] [address] Phone [phone] Care Team Providers Care Livestock Counter Name Role Phone Héctor Johnson MD Primary Care Provider [phone] [phone] Reason for Visit * Reason Comments Outpatient Testing Encounter Details Date Type Department Care Team (Late st Contact Info) Description 04/20/2023 8:40 AM EST Laboratory Laboratory, [place] [address] [facility] [place] [address] [facility] 21 [place] [address] Nail abnormalities Allergies Active Allergy Reactions [...] 0 01/13/2019 Active Lancets (ONETOUCH DELICA PLUS [id number]) MISCIndications:Type 2 diabetes mellitus with hemoglobin A1c goal of less than 8.0% (HCC) Use to check blood sugar up to 3 times per day E11.9 100 Each 11 01/17/2020 Active Pen [place] 32G X 4 MMIndications:Type 2 diabetes mellitus [...] overdose. Seek immediate medical attention. [email or web address] 1 Each 3 03/01/2023 Active Additional Information [...] clinical research program 01/03/2020 Overview: [employer]: A Randomized Controlled Trial (Project # [id number]). The [employer] program provides food-insecure diabetics with healthy food for their entire household (2 meals/ day X 5 days/week). The program also provides education on food preparation, healthy living, and diabetes self management. The research measures the effects of the program on patient health and wellbeing. Subject will begin the FFF program December 2019. Contact Information: Business Practices Supervisor: Dr. Palmer Anders ([phone]) CRC: Glory Arteaga ([phone]) RA: Chiara Laura ([phone]) Diagnosis changed due to Research Module. Go [...] On prozac, was inc to 30 mg Ocf31Mf.Still.,wean 04/18/2007 Screening for malignant neoplasm of cervix 01/16/2007 06/08/2010 Overview: P[facility]?wuy37--TF[facility] [place] , had post Fu and pap [...] 04/20/2023 10:20 AM EST Office Visit Dermatology [facility] [place] [address] [facility] [place] [address] Tessa Ricci PA-C [address] [facility] [place] [address] 02/01/2024 10:00 AM EDT Office Visit [facility] [address] [place] [address] Héctor Johnson [...] Documents on File Type Date Recorded Patient Profiler Expl anation Advance Directives and Living Will 11/02/2005 Power of Technical Support Director 11/02/2005 Care Teams Livestock Counter Relationship Specialty Start Date End Date Héctor Johnson MD [address] [place] [id number] PCP - General Family Medicine 05/20/21 documented as of this encounter
--- OUTSIDE RECORDS SUMMARY | 2023-08-05 23:23 | External Medical Summary ---
Author Name Unknown Address Unknown Organization K1F:LABORATORY [facility] - [address] [place] [address] [address] [place] [address] Laboratory Report Ordering Provider Test Date Status MIGUEL SIMENTAL 03/24/2023 18:44:52 Final Observation Date Value Abnormality Reference (Units ) Status WBC, Total 03/24/2023 18:44:52 6.32 4.00-10.80 (K/uL) Final RBC 03/24/2023 18:44:52 3.87 3.85-5.15 (M/uL) Final Hemoglobin 03/24/2023 18:44:52 11.8 Below low normal 12.0-15.3 (g/dL) Final HCT 03/24/2023 18:44:52 34.4 Below low normal 36.0-45.2 (%) Final MCV 03/24/2023 18:44:52 88.9 81.5-97.5 (fL) Final MCH 03/24/2023 18:44:52 30.5 27.0-34.0 (pg) Final MCHC 03/24/2023 18:44:52 34.3 32.0-36.0 (g/dL) Final RDW 03/24/2023 18:44:52 14.7 11.5-15.5 (%) Final Platelets 03/24/2023 18:44:52 222 140-400 (K/uL) Final MPV 03/24/2023 18:44:52 8.9 6.6-11.1 (fL) Final Nucleated erythrocytes/100 leukocytes [Ratio] in Blood by Automated count 03/24/2023 18:44:52 0 <=0 (/100 WBCs) Final Performing Location [facility]ORY [facility] - [address] [facility] [address] [place] [address]
--- OUTSIDE RECORDS SUMMARY | 2023-08-05 23:23 | External Medical Summary ---
Author Name Unknown Address Unknown Organization K01:LABORATORY [facility] - [address] [facility] [address] [place] [id number] Laboratory Report Ordering Provider Test Date Status JR SILVA 04/20/2023 08:35:10 Final Observation Date Value Abnormality Reference (Units) Status Bacteria identified in Specimen by Culture 04/20/2023 08:35:10 [id number]^MULTIPLE NONPATHOGENIC MOLDS Abnormal Final Multiple nonpathogenic molds
No further workup routinely performed.
Test: Culture, Fungus, Derm
Specimen Source: Finger, Unspecified
Specimen Type: Nail
Specimen Date: 04/20/2023 8:35 AM
Result Date: 05/12/2023 7:27 AM
Result Status: Final result
Abnormal: Yes
Resulting Lab: [facility]ORY [facility]
[address] [facility] [address] [place]
[facility] [address]

CULTURE

Multiple nonpathogenic molds (Abnormal)

No further workup routinely performed.

null Performing Location LABORATORY [facility] - [address] [facility] [address]
--- OUTSIDE RECORDS SUMMARY | 2023-08-05 23:24 | External Medical Summary ---
Author Name Unknown Address Unknown Organization K1F:LABORATORY [facility] - [address] [facility]. [place] [address] Laboratory Report Ordering Provider Test Date Status KIYA BLAKE 03/01/2023 10:52:12 Final Observation Date Value Abnormality Reference (Units ) Status SYNC LEUKOCYTES IN BLOOD BY AUTOMATED COUNT 03/01/2023 10:52:12 3.43 Below low normal 4.00-10.80 (K/uL) Final Segs 03/01/2023 10:52:12 53.9 40.0-75.0 (%) Final Lymphs % 03/01/2023 10:52:12 36.4 18.0-42.0 (%) Final Monos 03/01/2023 10:52:12 7.6 1.0-11.0 (%) Final Eosinophils 03/01/2023 10:52:12 1.2 0.0-6.0 (%) Final Basos 03/01/2023 10:52:12 0.3 0.0-2.0 (%) Final Immature Granulocyte, Percent 03/01/2023 10:52:12 0.6 0.0-2.0 (%) Final Absolute Segs 03/01/2023 10:52:12 1.85 1.80-7.70 (K/uL) Final Lymphs, absolute 03/01/2023 10:52:12 1.25 1.00-4.80 (K/ul) Final Monos, Abs 03/01/2023 10:52:12 0.26 0.00-1.10 (K/uL) Final Eos, Abs 03/01/2023 10:52:12 0.04 0.00-0.70 (K/uL) Final Basos, Abs 03/01/2023 10:52:12 0.01 0.00-0.20 (K/uL) Final Immature Granulocytes, Number 03/01/2023 10:52:12 0.02 0.00-0.20 (K/uL) Final Performing Location LABORATORY [facility] - [address] [facility] [address]
--- OUTSIDE RECORDS SUMMARY | 2023-08-05 23:24 | External Medical Summary | Summary of Care ---
Author Name Unknown Organization [facility] Address [address] [address] Phone [phone] Care Team Providers Care Vessel Manager Name Role Phone Louei Kaye MD Primary Care Provider [phone] [phone] Reason for Visit * Reason Comments eRx-Medication Refill Encounter Details Date Type Department Care Team Description 02/20/2023 Refill [facility] [address] [facility] [place] [address] Louie Kaye MD [address] [facility] [place] [address] Dyslipidemia, goal LDL below 100 Allergies Active Allergy Reactions Severity Noted Date Comments Adhesive Tape Rash 04/22/2014 documented as of this encounter (statuses as of 02/21/2023) Medications Medication Sig Dispensed Refills Start Date End Date Status ASPIRIN 81 MG PO TABSIndications:DM type 2, goal A1c below 7 ONE DAILY 30 Tab 5 1 Active Cranberry 1000 MG Capsule Start: 01/13/19 9:00:00 EDT, PO, Daily 0 9 Active Apple Cider Vinegar 188 MG CAPS Start: 01/13/19 14:02:00 EDT, Apple cider vinegar, PO, bid 0 9 Active Lancets (ONETOUCH DELICA PLUS [id number]) MISCIndications:Typ e 2 diabetes mellitus with hemoglobin A1c goal of less than 8.0% (HCC) Use to check blood sugar up to 3 times per day E11.9 100 Each 11 0 Active Pen [place] 32G X 4 MMIndications:Type 2 diabetes mellitus [...] needed. E11.9 100 Strip 11 2 Active Citalopram Hydrobromide 20 MG Oral Tablet (CeleXA)Indications :Depression, unspecified depression type Take by mouth 1 Tablet in the morning. 90 Tablet 3 2 Active Atorvastatin Calcium 20 MG Oral Tablet (Lipitor)Indication s:Dyslipidemia, goal LDL below 100 TAKE 1 TABLET BY MOUTH EVERY DAY 90 Tablet 3 2 Active B-12-SL 1000 MCG Sublingual Tablet Sublingual (Cyanocobalamin)Ind ications:B12 deficiency Place under the tongue 1,000 mcg daily . 90 Tablet 3 2 Active Alendronate Sodium 70 MG Oral Tablet (Fosamax) TAKE 1 TAB BY MOUTH ONCE A WEEK W/ 8OZ. WATER 30MIN BEFORE 1ST MEAL OF DAY. REMAIN UPRIGHT X30MIN 12 Tablet 2 3 Active Ozempic (1 MG/DOSE) 4 MG/3ML [...] OTHER MEDICATION 90 Tablet 3 3 Active Terbinafine HCl 250 MG Oral TabletIndications:E nlarged and hypertrophic nails,Onychomycosis Take 1 Tablet by mouth in the morning. for toenail fungus. Labs prior to refill. 42 Tablet 0 3 03/18/20 23 Active Lisinopril 10 MG Oral Tablet (Prinivil)Indicatio [...] A DAY 180 Tablet 3 3 Active metFORMIN HCl 1000 MG Oral Tablet (Glucophage)Indicat ions:Dyslipidemia, goal LDL below 100 One tablet twice daily 180 Tablet 3 2 02/22/20 23 Discontinued documented as of this encounter (statuses as of 02/21/2023) Active Problems Problem Noted Date Chronic bilateral thoracic back pain Recurrent major depressive disorder 10/28 Encounter for examination fo r normal comparison and control in clinical research program 01/03/2020 Overview: [employer]: A Randomized Controlled Trial (Project # [id number]). The [employer] program provides food-insecure diabetics with healthy food for their entire household (2 meals/ day X 5 days/week). The program also provides education on food preparation, healthy living, and diabetes self management. The research measures the effects of the program on patient health and wellbeing. Subject will begin the FFF program December 2019. Contact Information: Fabric Machine Operator: Dr. Palmer Anders ([phone]) CRC: Glory Arteaga ([phone]) RA: Chiara Laura ([phone]) Diagnosis changed due to Research Module. Go [...] as of this encounter (statuses as of 02/21/2023) Resolved Problems Problem Noted Date Resolved Date [...] On prozac, was inc to 30 mg [id number].Still.,wean 04/18/2007 Screening for malignant neoplasm of cervix 01/1606/08/2010 Overview: PAP--?oij27--BI.Grill.----[place] [facility] DrGrill-- [place] , had post Fu and [...] as of this encounter (statuses as of 02/21/2023) Immunizations Name Administration Dates Next Due COVID-19 mRNA, LNP-s, No Pre serve, 2-Dose Series ([employer]) 05/01/2021 Hepatitis B, 20+ yrs 11/28/1995,07/28/1994,05/30 PPD 07/12/2016, 7,02/18/2009,2008,03/31/2006 Pneumococcal Conjugate Vacc, 13 Valent (Prevnar) 03/04/2015 Seasonal Influenza, PF, 6 mo ns & Above, IM , (Flulaval) 03/16/2021,03/13/2020,03/26/2019,2017,03/25/2017 Seasonal Influenza, Quadriva lent, No Preserve, [...] encounter Miscellaneous Notes * Telephone Encounter - Y[facility] - 02/21/2023 11:13 AM EDTSigned Prescriptions: Disp Refills metFORMIN HCl 1000 MG Oral Tablet (Glucoph*180 Ta*3 Sig: TAKE 1 TABLET BY MOUTH TWICE A DAYAuthorizing Provider: LOUIE KAYE User: BISMARK STEINBERG N documented in this encounter Plan of Treatment Upcoming Encounters Date Type Specialty Care Team Description 02/01/2024 Office Visit Family Medicine Louie Kaye MD [address] [place] [id number] Scheduled Procedures Name Priority Associated Diagnoses Date/Ti me COLONOSCOPY FLEXIBLE PROXIMA L DIAGNOSTIC Recall Family history of colon cancer Health Maintenance Due Date Last Done Comments HPV/Co-Test 1997 DTaP,Tdap,and Td Vaccines (2 - Td or Tdap) 05/04/2017 05/04/2007 Zoster Vaccines (1 of 2) 2017 COVID-19 Vaccine (2 - Pfizer series) 06/26/2021 05/01/2021 DIABETES-EYE EXAM 03/23/2022 03/23/2021, , 11/17/2016, Additional history exists Influenza Vaccine (FLU shot) (#1) 2023 03/25/2022, [...] 02/02/2023, 01/29, 01/12/2021, Additional history exists GFR 02/03/2024 02/02/2023, 01/29, 05/15/2021, Additional history exists TSH 02/03/2024 02/02/2023, 01/29, 01/12/2021, Additional history exists PAP SMEAR-EVERY 5 YRS,AGES [...] Discontinued 07/09/2022, 07/09/2022 Colorectal Cancer Screening Discontinued Hepatitis C Screening Completed 07/26/2022 , 07/26/2022, 07/26/2022 Fecal Occult Blood Test Discontinued GARDASIL-HPV IMMUNIZATION [...] Documents on File Type Date Recorded Patient Panel Wirer Expl anation Advance Directives and Living Will 11/02/2005 Power of Gear Lapper 11/02/2005 Care Teams Vessel Manager Relationship Specialty Start Date End Date Louie Kaye MD [address] [facility] [place] [id number] PCP - General Family Medicine 05/20/21 documented as of this encounter
--- OUTSIDE RECORDS SUMMARY | 2023-08-05 23:24 | External Medical Summary | Summary of Care ---
Author Name Unknown Organization [facility] Address [address] [facility] [place] [address] Phone [phone] Care Team Providers Care Patient Care Provider Name Role Phone Louie Kaye MD Primary Care Provider [phone] [phone] Reason for Visit * Reason Comments eRx-Medication Refill Encounter Details Date Type Department Care Team Description 02/18/[address] [place] [address] Kaleigh Wells CRNP [address] [place] [address] HTN, goal below 130/80 Allergies Active Allergy Reactions Severity Noted Date Comments Adhesive Tape Rash 04/22/2014 documented as of this encounter (statuses as of 02/18/2023) Medications Medication Sig Dispensed Refills Start Date End Date Status ASPIRIN 81 MG PO TABSIndications:DM type 2, goal A1c below 7 ONE DAILY 30 Tab 5 1 Active Cranberry 1000 MG Capsule Start: 01/13/19 9:00:00 EDT, PO, Daily 0 9 Active Apple Cider Vinegar 188 MG CAPS Start: 01/13/19 14:02:00 EDT, Apple cider vinegar, PO, bid 0 9 Active Lancets (ONETOUCH DELICA PLUS [id number]) MISCIndications:Typ e 2 diabetes mellitus with hemoglobin A1c goal of less than 8.0% (HCC) Use to check blood sugar up to 3 times per day E11.9 100 Each 11 0 Active Pen [place] 32G X 4 MMIndications:Type 2 diabetes mellitus [...] needed. E11.9 100 Strip 11 2 Active Oxybutynin Chloride 5 MG Oral Tablet (Ditropan)Indicatio ns:Urinary urgency Take by mouth 1 Tablet in the morning AND 1 Tablet before bedtime. 60 Tablet 11 2 Active Citalopram Hydrobromide 20 MG Oral Tablet (CeleXA)Indications :Depression, unspecified depression type Take by mouth 1 Tablet in the morning. 90 Tablet 3 2 Active Atorvastatin Calcium 20 MG Oral Tablet (Lipitor)Indication s:Dyslipidemia, goal LDL below 100 TAKE 1 TABLET BY MOUTH EVERY DAY 90 Tablet 3 2 Active metFORMIN HCl 1000 MG Oral Tablet (Glucophage)Indicat ions:Dyslipidemia, goal LDL below 100 One tablet twice daily 180 Tablet 3 2 Active Empagliflozin 25 MG Oral Tablet (Jardiance)Indicati ons:Type 2 diabetes mellitus with hemoglobin A1c goal of less than 8.0% (HCC) Take by mouth 1 Tablet in the morning. 90 Tablet 3 2 Active B-12-SL 1000 [...] hemoglobin A1c goal of less than 8.0% ([facility]) INJECT 40 UNITS UNDER THE SKIN [...] THE MORNING 90 Tablet 3 3 Active Lisinopril 10 MG Oral Tablet (Prinivil)Indicatio ns:HTN, goal below 130/80 Take by mouth 1 Tablet in the morning. 90 Tablet 3 2 02/19/20 23 Discontinued documented as of this encounter (statuses as of 02/18/2023) Active Problems Problem Noted Date Chronic bilateral thoracic back pain Recurrent major depressive disorder 10/28 Encounter for examination fo r normal comparison and control in clinical research program 01/03/2020 Overview: [employer]: A Randomized Controlled Trial (Project # [id number]). The [employer] program provides food-insecure diabetics with healthy food for their entire household (2 meals/ day X 5 days/week). The program also provides education on food preparation, healthy living, and diabetes self management. The research measures the effects of the program on patient health and wellbeing. Subject will begin the FFF program December 2019. Contact Information: Burr Bench Operator: Dr. Palmer Anders ([phone]) CRC: Glory Arteaga ([phone]) RA: Chiara Laura ([phone]) Diagnosis changed due to Research Module. Go [...] as of this encounter (statuses as of 02/18/2023) Resolved Problems Problem Noted Date Resolved Date [...] for malignant neoplasm of cervix 01/1606/08/2010 Overview: PAP--?ovn25--ZT.Grill.----is [facility] DrGrill-- Del , had post Fu [...] as of this encounter (statuses as of 02/18/2023) Immunizations Name Administration Dates Next Due COVID-19 mRNA, LNP-s, No Pre serve, 2-Dose Series ([facility]) 05/01/2021 Hepatitis B, 20+ yrs 11/28/1995,07/28/1994,05/30 PPD [...] encounter Miscellaneous Notes * Telephone Encounter - Aria Mejia [facility] - 02/18/2023 10:44 AM EDTSigned Prescriptions: Disp Refills Lisinopril 10 MG Oral Tablet (Prinivil) 90 Tab*3 Sig: TAKE 1 TABLET BY MOUTH EVERY DAY IN THE MORNINGAuthorizing Provider: LOUIE KAYE User: ARIA MEJIA documented in this encounter Plan of Treatment Upcoming Encounters Date Type Specialty Care Team Description 02/01/2024 Office Visit Family Medicine Louie Kaye MD [address] [place] [address] Scheduled Procedures Name Priority Associated Diagnoses Date/Ti [...] as of this encounter Visit Diagnoses Diagnosis HTN, goal below 130/80 Unspecified essential hypertension documented in this encounter Advance Directives Documents on File Type Date Recorded Patient Tread Booker Expl anation Advance Directives and Living Will 11/02/2005 Power of Asphalt Layer 11/02/2005 Care Teams Patient Care Provider Relationship Specialty Start Date End Date Louie Kaye MD [address] [facility] [place] [address] PCP - General Family Medicine 05/20/21 documented as of this encounter
--- OUTSIDE RECORDS SUMMARY | 2023-08-05 23:24 | External Medical Summary ---
Author Name Unknown Address Unknown Organization K1F:LAB[facility]ORY [facility] [place] [address] Laboratory Report Ordering Provider Test Date Status KIYA BLAKE 03/01/2023 13:12:00 Final Observation Date Value Abnormality Reference (Units ) Status Troponin T 03/01/2023 13:12:00 11 <=14 (ng/ L) Final Performing Location LABORATORY [facility] - [address] [place] [address]
--- OUTSIDE RECORDS SUMMARY | 2023-08-05 23:24 | External Medical Summary ---
Author Name Unknown Address Unknown Organization K1F:LABORATORY [facility] [place] - [address] [place] [address] [address] [place] [address] Laboratory Report Ordering Provider Test Date Status KIYA BLAKE 03/01/2023 10:52:12 Final Observation Date Value Abnormality Reference (Units ) Status WBC, Total 03/01/2023 10:52:12 3.43 Below low normal 4.00-10.80 (K/uL) Final RBC 03/01/2023 10:52:12 3.38 3.85-5.15 (M/uL) Final Hemoglobin 03/01/2023 10:52:12 10.1 Below low normal 12.0-15.3 (g/dL) Final HCT 03/01/2023 10:52:12 31.3 Below low normal 36.0-45.2 (%) Final MCV 03/01/2023 10:52:12 92.6 81.5-97.5 (fL) Final MCH 03/01/2023 10:52:12 29.9 27.0-34.0 (pg) Final MCHC 03/01/2023 10:52:12 32.3 32.0-36.0 (g/dL) Final RDW 03/01/2023 10:52:12 14.6 11.5-15.5 (%) Final Platelets 03/01/2023 10:52:12 172 140-400 (K/uL) Final MPV 03/01/2023 10:52:12 8.9 6.6-11.1 (fL) Final Nucleated erythrocytes/100 leukocytes [Ratio] in Blood by Automated count 03/01/2023 10:52:12 0 <=0 (/100 WBCs) Final Performing Location LABORATORY [facility] [place] - [address] [place] [address]
--- OUTSIDE RECORDS SUMMARY | 2023-08-05 23:24 | External Medical Summary ---
Author Name Unknown Address Unknown Organization K1F:LABORATORY [facility] - [place] [address] Laboratory Report Ordering Provider Test Date Status KIYA BLAKE 03/01/2023 10:52:12 Final Observation Date Value Abnormality Reference (Units ) Status Troponin T 03/01/2023 10:52:12 12 <=14 (ng/ L) Final Performing Location LABORATORY [facility] - [address] [place] [address]
--- OUTSIDE RECORDS SUMMARY | 2023-08-05 23:24 | External Medical Summary | Summary of Care ---
Author Name Unknown Organization [facility] Address [address] [facility] [place] [address] Phone [phone] Care Team Providers Care Electronic System Engineer Name Role Phone Louie Kaye MD Primary Care Provider [phone] Reason for Visit * Reason Comments eRx-Medication Refill Encounter Details Date Type Department Care Team Description 02/22/2023 Refill [facility] [address] [facility] [place] [address] Kaleigh Wells CRNP [address] [place] [address] Dyslipidemia, goal LDL below 100; Depression, unspecified depression type Allergies Active Allergy Reactions Severity Noted Date Comments Adhesive Tape Rash 04/22/2014 documented as of this encounter (statuses as of 02/23/2023) Medications Medication Sig Dispensed Refills Start Date End Date Status ASPIRIN 81 MG PO TABSIndications:DM type 2, goal A1c below 7 ONE DAILY 30 Tab 5 1 Active Cranberry 1000 MG Capsule Start: 01/13/19 9:00:00 EDT, PO, Daily 0 9 Active Apple Cider Vinegar 188 MG CAPS Start: 01/13/19 14:02:00 EDT, Apple cider vinegar, PO, bid 0 9 Active Lancets (ONETOUCH DELICA PLUS [id number]) MISCIndications:Typ e 2 diabetes mellitus with hemoglobin A1c goal of less than 8.0% (HCC) Use to check blood sugar up to 3 times per day E11.9 100 Each 11 0 Active Pen Lucas 32G X 4 MMIndications:Type 2 diabetes mellitus [...] THE MORNING 90 Tablet 3 3 Active Citalopram Hydrobromide 20 MG Oral Tablet (CeleXA)Indications :Depression, unspecified depression type Take by mouth 1 Tablet in the morning. 90 Tablet 3 2 02/24/20 23 Discontinued Atorvastatin Calcium 20 MG Oral Tablet (Lipitor)Indication s:Dyslipidemia, goal LDL below 100 TAKE 1 TABLET BY MOUTH EVERY DAY 90 Tablet 3 2 02/24/20 23 Discontinued documented as of this encounter (statuses as of 02/23/2023) Active Problems Problem Noted Date Chronic bilateral thoracic back pain Recurrent major depressive disorder 10/28 Encounter for examination fo r normal comparison and control in clinical research program 01/03/2020 Overview: [employer]: A Randomized Controlled Trial (Project # [id number]). The [employer] program provides food-insecure diabetics with healthy food for their entire household (2 meals/ day X 5 days/week). The program also provides education on food preparation, healthy living, and diabetes self management. The research measures the effects of the program on patient health and wellbeing. Subject will begin the FFF program December 2019. Contact Information: Director Of Infection Control: Dr. Palmer Anders ([phone]) CRC: Glory Arteaga ([phone]) RA: Chiara Laura ([phone]) Diagnosis changed due to Research Module. Go [...] as of this encounter (statuses as of 02/23/2023) Resolved Problems Problem Noted Date Resolved Date [...] On prozac, was inc to 30 mg Hzt11Ov.Still.,wean 04/18/2007 Screening for malignant neoplasm of cervix 01/1606/08/2010 Overview: PAP--?lal44--SW.Grill.----is satish DrGrill-- Del , had post Fu [...] as of this encounter (statuses as of 02/23/2023) Immunizations Name Administration Dates Next Due COVID-19 [...] encounter Miscellaneous Notes * Telephone Encounter - Migdalia Colindres [facility] - 02/23/2023 9:45 AM EDTSigned Prescriptions: Disp Refills Atorvastatin Calcium 20 MG Oral Tablet (Li*90 Tab*2 Sig: TAKE 1 TABLET BY MOUTH EVERY DAYAuthorizing Provider: LOUIE KAYE User: MIGDALIA COLINDRES Citalopram Hydrobromide 20 MG Oral Tablet *90 Tab*3 Sig: TAKE 1 TABLET BY MOUTH EVERY DAY IN THE ORNINGAuthorizing Provider: LOUIE KAYE User: MIGDALIA COLINDRES * Telephone Encounter - Migdalia Colindres [facility] - 02/23/2023 9:45 AM EDT Lipid panel previously ordered. Pt can obtain with next labs. documented in this encounter Plan of Treatment Upcoming Encounters Date Type Specialty Care Team Description 02/01/2024 Office Visit Family Medicine Louie Kaye MD [address] [facility] [place] [id number] Scheduled Procedures Name Priority Associated Diagnoses Date/Ti [...] LDL below 100 Other and unspecified hyperlipidemia Depression, unspecified depression type documented in this encounter Advance Directives Documents on File Type Date Recorded Patient Frame Catcher Expl anation Advance Directives and Living Will 11/02/2005 Power of Property Administrator 11/02/2005 Care Teams Electronic System Engineer Relationship Specialty Start Date End Date Louie Kaye MD [address] [facility] [place] [address] PCP - General Family Medicine 05/20/21 documented as of this encounter
--- OUTSIDE RECORDS SUMMARY | 2023-08-05 23:24 | External Medical Summary ---
Author Name Unknown Address Unknown Organization K1F:[facility] - [address] [facility]. [place] [address] Laboratory Report Ordering Provider Test Date Status KIYA BLAKE 03/01/2023 10:52:12 Final Observation Date Value Abnormality Reference (Units ) Status BUN 03/01/2023 10:52:12 26 Above high normal 6-20 (mg/dL) Final Creatinine 03/01/2023 10:52:12 0.7 0.5-1.0 (mg/dL) Final Glomerular filtration rate/1.73 sq M.predicted [Volume Rate/Area] in Serum, Plasma or Blood by Creatinine-based formula (CKD-EPI) 03/01/2023 10:52:12 >90 >=60 (mL/min) Final eGFR is calculated based on the CKD-EPI 2020 equation SODIUM 03/01/2023 10:52:12 138 135-146 (m mol/L) Final Potassium 03/01/2023 10:52:12 4.6 3.5-5.1 (m mol/L) Final Cl 03/01/2023 10:52:12 103 98-107 (mm ol/L) Final CO2 03/01/2023 10:52:12 28 22-32 (mmo l/L) Final Anion gap 03/01/2023 10:52:12 7 7-15 (mmol /L) Final Glucose 03/01/2023 10:52:12 117 70-120 (mg /dL) Final Albumin 03/01/2023 10:52:12 3.7 Below low normal 3.8 -5.0 (g/dL) Final AST (Aspartate aminotransferase) 03/01/2023 10:52:12 22 10-35 (U/L) Fin al Alk Phos 03/01/2023 10:52:12 68 35-130 (U/ L) Final Bilirubin, Total 03/01/2023 10:52:12 0.2 <=1 .2 (mg/dL) Final Calcium 03/01/2023 10:52:12 8.7 8.4-10.2 ( mg/dL) Final Protein 03/01/2023 10:52:12 6.0 6.0-8.3 (g /dL) Final ALT (Alanine aminotransferase) 03/01/2023 10:52:12 15 10-35 (U/L) Prosper ballard Performing Location LAB[facility]ATORY [facility] - [facility] [place] [address]. [place] [address]
--- OUTSIDE RECORDS SUMMARY | 2023-08-05 23:24 | External Medical Summary | Summary of Care ---
Author Name Unknown Organization [facility] Address [address] [facility] [place] [address] Phone [phone] Care Team Providers Care Ballet Soloist Name Role Phone Louie Kaye MD Primary Care Provider [phone] Reason for Visit * Reason Comments eRx-Medication Refill Encounter Details Date Type Department Care Team Description 02/19/2023 Refill [facility] [address] [facility] [place] [address] Kaleigh Wells CRNP [address] [place] [address] Urinary urgency Allergies Active Allergy Reactions Severity Noted Date [...] 0 9 Active Lancets (ONETOUCH DELICA PLUS [id number]) MISCIndications:Typ e 2 diabetes mellitus with hemoglobin A1c goal of less than 8.0% (HCC) Use to check blood sugar up to 3 times per day E11.9 100 Each 11 0 Active Pen [place] 32G X 4 MMIndications:Type 2 diabetes mellitus [...] twice daily 180 Tablet 3 2 Active B-12-SL 1000 MCG [...] hemoglobin A1c goal of less than 8.0% ([facility]) INJECT 40 UNITS UNDER THE SKIN DAILY [...] BEFORE BEDTIME 180 Tablet 3 3 Active Oxybutynin Chloride 5 MG Oral Tablet (Ditropan)Indicatio ns:Urinary urgency Take by mouth 1 Tablet in the morning AND 1 Tablet before bedtime. 60 Tablet 11 2 02/22/20 23 Discontinued Empagliflozin 25 MG Oral Tablet (Jardiance)Indicati ons:Type 2 diabetes mellitus with hemoglobin A1c goal of less than 8.0% (HCC) Take by mouth 1 Tablet in the morning. 90 Tablet 3 2 02/21/20 23 Discontinued documented as of this encounter (statuses as of 02/21/2023) Active Problems Problem Noted Date Chronic bilateral thoracic back pain Recurrent major depressive disorder 10/28 Encounter for examination fo r normal comparison and control in clinical research program 01/03/2020 Overview: [employer]: A Randomized Controlled Trial (Project # [id number]). The [employer] program provides food-insecure diabetics with healthy food for their entire household (2 meals/ day X 5 days/week). The program also provides education on food preparation, healthy living, and diabetes self management. The research measures the effects of the program on patient health and wellbeing. Subject will begin the FFF program December 2019. Contact Information: Driver Courier: Dr. Palmer Anders ([phone]) CRC: Glory Arteaga ([phone]) RA: Chiara Laura ([phone]) Diagnosis changed due to Research Module. Go [...] On prozac, was inc to 30 mg Upj15Ii.Still.,wean 04/18/2007 Screening for malignant neoplasm of cervix 01/1606/08/2010 Overview: PAP--?exa38--XX.Grill.----is satish DrGrill-- Del , had post Fu [...] mRNA, LNP-s, No Pre serve, 2-Dose Series ([employer]) 05/01/2021 Hepatitis B, 20+ yrs 11/28/1995,07/28/1994,05/30 PPD [...] encounter Miscellaneous Notes * Telephone Encounter - Louie Kaye MD - 02/21/2023 6:54 AM EDTSigned Prescriptions: Disp Refills Oxybutynin Chloride 5 MG Oral Tablet (Ditr*180 Ta*3 Sig: TAKE 1 TABLET BY MOUTH EVERY DAY IN THE MORNING AND BEFORE BEDTIME Authorizing Provider: LOUIE KAYE * Telephone Encounter - Laura Resendiz [facility] - 02/20/2023 8:13 AM EDTPending Prescriptions: Disp Refills Oxybutynin Chloride 5 MG Oral Tablet (Ditr*180 Ta*3 Sig: TAKE 1 TABLET BY MOUTH EVERY DAY IN THE MORNING AND BEFORE BEDTIME * Telephone Encounter - Laura Resendiz [facility] - 02/20/2023 8:13 AM EDT [facility] is currently not authorized to approve refills for the pended medication(s) per refill protocol. Please approve if appropriate. Thanks, Laura Resendiz, PharmD Clinical Pharmacist Centralized Clinical Pharmacy Services ([facility]) (formerly [facility]). [phone] 02/20/2023, 8:13 AM * Telephone Encounter - Laura Resendiz [facility] - 02/20/2023 8:12 AM EDT Pending Prescriptions: Disp Refills Oxybutynin Chloride 5 MG Oral Tablet (Dit*180 Ta*3 Sig: TAKE 1 TABLET BY MOUTH EVERY DAY IN THE MORNING AND BEFORE BEDTIME Last Visit: 01/26/2023 (in office), Visit date not found (telemedicine) Next Visit: 02/01/2024 If no future appointments scheduled, and last appointment is greater than a year ago, please schedule patient for a follow-up appointment Last date the medication was ordered: 02/19/22 Pharmacy: [id number] [address] [facility] Is this request for a controlled substance? No Urine Drug Screen: Results for orders placed or performed in visit on 02/27/09 TOX SCREEN, URINE Result Value Amphetamine NOT DETECTED Barbiturates NOT DETECTED Benzodiazepines NOT DETECTED Cannabinoids NOT DETECTED Cocaine Metabolite NOT DETECTED Morphine / Codeine NOT DETECTED PCP NOT DETECTED MDMA NOT DETECTED OXYCODONE NOT DETECTED PROPOXYPHENE MEDICAL NOT DETECTED METHADONE MEDICAL NOT DETECTED ACETAMINOPHEN, QUAL NOT DETECTED SALICYLATES, QUAL NOT DETECTED NOTE: SCREENING RESULTS QUALITATIVELY IDENTIFY DRUGS LISTED IN THE GML USER'S MANUAL FOR THE SPECIMEN TYPE INDICATED. RESULTS ARE PRESUMPTIVE UNLESS RETESTED BY A CONFIRMATORY METHOD. CONTACT TOXICOLOGY SERVICE FOR INFORMATION ON CONFIRMATORY TESTING. DETECTION LIMIT *Note: Due to a large number of results and/or encounters for the requested time period, some results have not been displayed. A complete set of results can be found in Results Review. Patient Phone Numbers mobile [phone] Labs: Lab Results Component Value Date/Time CREAT 0.6 02/02/2023 03:27 PM CREAT 0.67 05/15/2021 12:00 AM CREAT 0.5 12/22/2019 09:36 AM CREAT 0.6 (L) 08/17/1996 08:00 AM POTASSIUM 5.3 (H) 02/02/2023 03:27 PM POTASSIUM 4.0 05/15/2021 12:00 AM POTASSIUM 4.5 12/22/2019 09:36 AM POTASSIUM 4.6 08/17/1996 08:00 AM TSH 0.20 (L) 02/02/2023 03:27 PM TSH 0.55 12/22/2019 09:36 AM LDLCALC 114 02/22/2022 08:30 AM LDLCALC 97 03/10/2020 01:38 PM LDLCALC 158. (H) 08/17/1996 08:00 AM LDLDIRECT NOT APPLICABLE 03/10/2020 01:38 PM LDLDIRECT 168 (H) 02/21/2017 01:12 PM ALT 26 02/02/2023 03:27 PM ALT 25 12/22/2019 09:36 AM HGBA1C 7.0 (H) 02/02/2023 03:27 PM HGBA1C 7.5 (H) 03/16/2021 05:11 PM HGBA1C 7.8 (H) 03/10/2020 01:38 PM documented in this encounter Plan of Treatment Upcoming Encounters Date Type Specialty Care Team Description 02/01/2024 Office Visit Family Medicine Louie Kaye MD [address] [facility] [place] [address] Scheduled Procedures Name Priority Associated Diagnoses [...] as of this encounter Visit Diagnoses Diagnosis Urinary urgency Urgency of urination documented in this encounter Advance Directives Documents on File Type Date Recorded Patient Chick Grader Expl anation Advance Directives and Living Will 11/02/2005 Power of Cork Compounder 11/02/2005 Care Teams Ballet Soloist Relationship Specialty Start Date End Date Louie Kaye MD [address] [place] [id number] PCP - General Family Medicine 05/20/21 documented as of this encounter
--- OUTSIDE RECORDS SUMMARY | 2023-08-05 23:24 | External Medical Summary ---
Author Name Unknown Address Unknown Organization K1F:LABORATORY [facility] - [address] [place] [address] Laboratory Report Ordering Provider Test Date Status KIYA BLAKE 03/01/2023 12:42:38 Final Observation Date Value Abnormality Reference (Units ) Status Color of Urine by Auto 03/01/2023 12:42:38 Yellow Light Yellow, Yellow, Dark Yellow Final Clarity, Urine 03/01/2023 12:42:38 Clear Clear Final Glucose [Mass/volume] in Urine by Automated test strip 03/01/2023 12:42:38 >=1000 Abnormal Negative (mg/dL) Final Bilirubin.total [Presence] in Urine by Automated test strip 03/01/2023 12:42:38 Negative Negative Final Ketones [Mass/volume] in Urine by Automated test strip 03/01/2023 12:42:38 Negative Negative (mg/dL) Final Specific gravity, Urine 03/01/2023 12:42:38 1.025 1.003-1.030 Final Hemoglobin [Presence] in Urine by Automated test strip 03/01/2023 12:42:38 Negative Negative Final pH, Urine 03/01/2023 12:42:38 6.0 5.0-7.5 (Units) Final Protein [Mass/volume] in Urine by Automated test strip 03/01/2023 12:42:38 Negative Negative (mg/dL) Final Urobilinogen [Mass/volume] in Urine by Automated test strip 03/01/2023 12:42:38 1.0 0.2, 1.0 (mg/dL) Final Nitrite [Presence] in Urine by Automated test strip 03/01/2023 12:42:38 Negative Negative Final Leukocyte esterase [Presence] in Urine by Automated test strip 03/01/2023 12:42:38 Negative Negative Final Annotation Comment 03/01/2023 12:42:38 Final Screen negative - Microscopi c not performed. Performing Location LAB[facility]AT[facility] - [address] [place] [address]
[2023-08-05] MEDS: MoRPHine SULFATE 4 MG/ML 1 ML CARP\\VIAL IV PRN (23:29)
[2023-08-06] MEDS: PANTOprazole 40 MG TAB PO SCH (06:27)
[2023-08-06] MEDS: LEVOTHYROXINE SODIUM 150 MCG TABLET PO SCH (06:27)
[2023-08-06 06:31] LABS: BUN Creatinine Ratio 33.9 (10-20); Calcium 8.4 mg/dl (8.6-10.3); Creatinine Clr Calc Pharmacy 119.8 ml/min; Est GFR (African American) 120.8 ml/min; Est GFR (Non-African American) 104.2 ml/min; Hematocrit (blood only) 32.6 % (37.0-47.0); Hemoglobin 10.6 g/dl (12.0-16.0); Magnesium 1.4 mg/dl (1.7-2.4); Mean Corpuscular Hemoglobin 29.6 pg (25.0-34.0); Mean Corpuscular Hgb Conc 32.5 g/dL (32.0-36.0); Mean Corpuscular Volume 91.1 fL (80.0-100.0); Mean Platelet Volume 8.7 fL (9.4-12.4); Platelet Count 234 K/uL (130-400); Potassium 4.2 mmol/L (3.5-5.1); RDW Coefficient of Variation 15.4 % (11.5-14.5); RDW Standard Deviation 50.4 fL (36.4-46.3); Red Blood Count 3.58 M/uL (4.20-5.40); White Blood Count 3.25 K/ul (4.8-10.8)
[2023-08-06 07:11] LABS: Estimated Average Glucose 154 mg/dl
[2023-08-06] MEDS: CITALOPRAM 20 MG TAB PO SCH (08:33)
[2023-08-06] MEDS: ASPIRIN 81 MG ECTAB PO SCH (08:33)
[2023-08-06] MEDS: lisinopril 10 MG TAB PO SCH (08:34)
[2023-08-06] MEDS: ENOXAPARIN INJ 40 MG/0.4 ML SYR SQ SCH (08:34)
[2023-08-06] MEDS: MAGNESIUM SULFATE / D5W 1 GM/100 ML BAG IV SCH (10:30)
[2023-08-06] MEDS: cefTRIAXone SODIUM 2,000 MG in DEXTROSE 5 % MINI-B 50 ML IV SCH (12:25)
[2023-08-06] MEDS: oxyCODONE HCL IR 5 MG TAB (IMMEDIATE RELEASE) PO SCH (12:29)
--- NOTE | 2023-08-06 14:34 | Hospitalist Progress Note ---
Date of Service August 06, 2023 Assessment & Plan (1) Mass of buttock: Plan: Suspected lymphoma/metastatic disease Right gluteal mass Splenomegaly with retroperitoneal lymphadenopathy Leukopenia, normocytic anemia -CT abd/pelvis:There is marked masslike expansion of the right gluteus medius muscle extending into the right lumber press operator foramen. There is also mass involving the right rectus femoris muscle and the left gluteus minimus. Additionally, the spleen is mildly enlarged with several splenic masses. There are also enlarged retroperitoneal lymph nodes, as well as right iliac chain lymphadenopathy extending into tube the right groin. This constellation of findings is highly suggestive of a neoplastic process such as lymphoma. --CT Brown:Lymphadenopathy is seen in the left axilla and right greater than left wesley. Findings are suspicious for neoplastic process such as lymphoma. --MRI Brain:No acute abnormality and in particular no evidence of metastatic disease. --Lumbar CT:Degenerative changes without evidence of acute bony injury. -- Peripheral smear is pending Oncology consulted Will likely need biopsy by IR Pain control PT OT as able UTI Urine culture growing gram-negative bacilli Empirically on Rocephin Hypomagnesemia Replete electrolytes as needed Monitor Constipation Continue bowel regimen DM II HbA1c 7.0 Hold home regimen Continue insulin while hospitalized Monitor BGs HTN HLD Continue home medications Monitor GERD Continue PPI Hypothyroidism: Elevated TSH, normal free T4 Continue levothyroxine 150 mcg daily Depression: Continue citalopram DVT Px: Lovenox SQ CODE STATUS Full code Admission and Anticipated Discharge Date Admission Date: August 05, 2023 Subjective Patient is seen and examined at bedside States having persistent right hip pain Denies any dysuria, hematuria Also denies any nausea, vomiting Admits to have some abdominal discomfort Discussed with patient's family at bedside Denies any chest pain, dyspnea Review of Systems Review of Systems: All systems reviewed & are unremarkable except as noted in Subjective Physical Exam Physical Exam: Physical Exam: Vitals signs as noted above General Appearance:Obese, no apparent distress Head: normocephalic, Atraumatic Eyes: normal inspection, EOMI Neck: supple, Trachea midline Respiratory/Chest: Normal breath sounds, CTA, No accessory muscle use Cardiovascular: S1, S2, No murmur Abdomen/GI:Soft, Non tender, Bowel sounds present Extremities/Musculoskeletal:normal inspection, no edema, R hip mildly palpable mass Neurologic/Psych:AAOX3, grossly no focal neurological deficits Skin: normal color, warm Results & Data Results & Data Vital Signs (Past 12 Hours) Vital Signs Temp Pulse Resp BP Pulse Ox O2 Del Method O2 Flow Rate 08/06/23 07:30 Room Air 08/06/23 07:25 36.4 C L 75 16 104/72 96 Nasal Cannula 2 Laboratory Results Short CBC 08/06/23 Range/Units 05:45 WBC 3.25 L (4.8-10.8) K/ul Hgb 10.6 L (12.0-16.0) g/dl Hct 32.6 L (37.0-47.0) % Plt Count 234 (130-400) K/uL BMP 08/06/23 05:45 Sodium 135 L Potassium 4.2 Chloride 101 Carbon Dioxide 27 BUN 19 Creatinine 0.56 L Glucose 70 Calcium 8.4 L
[2023-08-06] MEDS: MoRPHine SULFATE 4 MG/ML 1 ML CARP\\VIAL IV PRN (15:16)
--- NOTE | 2023-08-06 19:11 | Oncology Consultation ---
Date of Consultation August 06, 2023 Assessment & Plan (1) Mass of buttock: I recommend an IR guided biopsy, that will give us a tissue diagnosis. Oncology will have further recommendations subsequently (2) Lymphadenopathy: In my opinion the lymphadenopathy is directly related to the mass of the gluteus medius muscle. If needed we can get a lymph node directed biopsy and would recommend either axillary or retroperitoneal lymph node biopsy (3) Splenic mass: Explained to the patient that biopsy of the spleen is unlikely. That we will need to be assessed subsequently. Plan Medical oncology will continue to follow the patient make appropriate recommendations. Thank you for this interesting oncological consult. History of Present Illness Reason for Consultation: Generalized lymphadenopathy Skeletal muscle involvement Splenic masses ? 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 Over the last couple of weeks the pain has worsened. She was evaluated by one of her orthopedic surgery colleagues and a recommendation was made for physical therapy. However her pain worsened. She came to the [facility] ER and received had a CT of the chest as well as abdomen pelvis which revealed bilateral axillary lymphadenopathy, right gluteus medius muscle mass, questionable dilatation of the esophagus, rectus femoris mass splenic mass and splenomegaly, enlarged retroperitoneal lymph nodes, questionable metastatic bone involvement. Medical oncology has been consulted to assist in management of this patient with generalized lymphadenopathy, skeletal muscle mass, skeletal bone disease. Allergies Allergy/AdvReac Type Severity Reaction Status Date / Time adhesive tape Allergy Mild Rash/Itchin Unverified 08/05/23 17:38 [facility] Home Medications Medication Instructions Recorded Confirmed Type metformin 1,000 mg tablet 1,000 mg PO BID ##0 09/21/09 08/05/23 History aspirin 81 mg tablet,delayed 81 mg PO QAM ##0 08/15/13 08/05/23 History release atorvastatin 20 mg tablet (Lipitor) 20 mg PO PM #0 tabs 08/15/13 08/05/23 History citalopram 20 mg tablet 20 mg PO QAM ##0 08/15/13 08/05/23 History lisinopril 10 mg tablet 10 mg PO QAM ##0 08/15/13 08/05/23 History insulin degludec 100 unit/mL (3 36 unit subcut QAM 12/17/21 03/08/24 History mL) subcutaneous pen (Tresiba FlexTouch U-100 insulin) alendronate 70 mg tablet 70 mg PO WK 08/05/23 08/05/23 History empagliflozin 25 mg tablet 25 mg PO QAM 08/05/23 08/05/23 History (Jardiance) levothyroxine 150 mcg tablet 150 mcg PO DAILYBB 08/05/23 08/05/23 History omeprazole 40 mg capsule,delayed 40 mg PO DAILYBB 08/05/23 08/05/23 History release oxybutynin chloride 5 mg tablet 5 mg PO AMHS 08/05/23 08/05/23 History semaglutide 1 mg/dose (4 mg/3 mL) 1 mg subcut WK 08/05/23 08/05/23 History subcutaneous pen injector (Ozempic) Patient History Medical History Delivered by section Depression Hypothyroidism GERD (gastroesophageal reflux disease) HLD (hyperlipidemia) HTN (hypertension) DM2 (diabetes mellitus, type 2) Surgical History Hx of tonsillectomy H/O tubal ligation H/O dilation and curettage H/O hernia repair Family History Other Cancer Social History Smoking Status: Former smoker Second Hand Exposure: No; Do You Dip or Chew Tobacco: No; Tobacco Cessation Education Requested by Patient: No Hx Alcohol Use: Yes Alcohol type: wine Hx Substance Use: No Preferred Language: Belarusian Communication Ability: Effective Land Department Head Required: No Beliefs That Will Affect Care: None Current Living Situation: Spouse Feels Safe at Home: Yes Safety Concerns: Feels Safe At This Time Assistive Devices: Cane, Glasses, Hospital Bed and Walker Results & Data Vital Signs (Past 12 Hours) Vital Signs Temp Pulse Resp BP Pulse Ox O2 Del Method O2 Flow Rate 08/06/23 15:40 36.8 C 84 16 107/69 92 Nasal Cannula 2 08/06/23 07:30 Room Air 03/09/24 07:25 36.4 C L 75 16 104/72 96 Nasal Cannula 2
[2023-08-06] MEDS: MAGNESIUM CHLORIDE W/CALCIUM 64MG DELAYED REL TAB PO SCH (20:54)
[2023-08-07] MEDS: ACETAMINOPHEN 325 MG TAB PO PRN (01:51)
[2023-08-07 06:33] LABS: Hematocrit (blood only) 34.3 % (37.0-47.0); Hemoglobin 10.8 g/dl (12.0-16.0); Mean Corpuscular Hemoglobin 28.8 pg (25.0-34.0); Mean Corpuscular Hgb Conc 31.5 g/dL (32.0-36.0); Mean Corpuscular Volume 91.5 fL (80.0-100.0); Mean Platelet Volume 8.8 fL (9.4-12.4); Platelet Count 227 K/uL (130-400); RDW Coefficient of Variation 15.6 % (11.5-14.5); RDW Standard Deviation 52.7 fL (36.4-46.3); Red Blood Count 3.75 M/uL (4.20-5.40); White Blood Count 2.97 K/ul (4.8-10.8)
[2023-08-07 06:49] LABS: BUN Creatinine Ratio 26.7 (10-20); Calcium 8.9 mg/dl (8.6-10.3); Creatinine Clr Calc Pharmacy 111.8 ml/min; Est GFR (African American) 118.1 ml/min; Est GFR (Non-African American) 101.9 ml/min; Potassium 4.4 mmol/L (3.5-5.1)
[2023-08-07 08:37] LABS: Thyroid Stimulating Hormone 10.631 uIu/ml (0.300-4.500)
[2023-08-07] MEDS: ERTAPENEM SODIUM 1,000 MG in SYRINGE 0 ML IV SCH (11:55)
[2023-08-07] MEDS: oxyCODONE HCL IR 5 MG TAB (IMMEDIATE RELEASE) PO SCH (12:28)
--- NOTE | 2023-08-07 17:24 | Hospitalist Progress Note ---
Date of Service August 07, 2023 Assessment & Plan (1) Mass of buttock: Plan: Suspected lymphoma/metastatic disease Right gluteal mass Splenomegaly with retroperitoneal lymphadenopathy Leukopenia, normocytic anemia -CT abd/pelvis:There is marked masslike expansion of the right gluteus medius muscle extending into the right pump house operator foramen. There is also mass involving the right rectus femoris muscle and the left gluteus minimus. Additionally, the spleen is mildly enlarged with several splenic masses. There are also enlarged retroperitoneal lymph nodes, as well as right iliac chain lymphadenopathy extending into tube the right groin. This constellation of findings is highly suggestive of a neoplastic process such as lymphoma. --CT Brown:Lymphadenopathy is seen in the left axilla and right greater than left wesley. Findings are suspicious for neoplastic process such as lymphoma. --MRI Brain:No acute abnormality and in particular no evidence of metastatic disease. --Lumbar CT:Degenerative changes without evidence of acute bony injury. -- Peripheral smear is pending Appreciate oncology Input Pain control PT OT as able N.p.o. after midnight for possible IR biopsy of lymph node, right hip mass UTI Urine culture ESBL E. coli Empirically on Rocephin>> ertapenem on 08/07/2023 Hypomagnesemia Replete electrolytes as needed Monitor Constipation Continue bowel regimen DM II HbA1c 7.0 Hold home regimen Continue insulin while hospitalized Monitor BGs HTN HLD Continue home medications Monitor GERD Continue PPI Hypothyroidism: Elevated TSH, normal free T4 Continue levothyroxine 150 mcg daily Depression: Continue citalopram DVT Px: Lovenox SQ CODE STATUS Full code Admission and Anticipated Discharge Date Admission Date: August 05, 2023 Subjective Patient is seen and examined at bedside No new complaints Still has right hip pain Denies any chest pain, dyspnea, nausea, vomiting, dizziness Review of Systems Review of Systems: All systems reviewed & are unremarkable except as noted in Subjective Physical Exam Physical Exam: Physical Exam: Vitals signs as noted above General Appearance:Obese, no apparent distress Head: normocephalic, Atraumatic Eyes: normal inspection, EOMI Neck: supple, Trachea midline Respiratory/Chest: Normal breath sounds, CTA, No accessory muscle use Cardiovascular: S1, S2, No murmur Abdomen/GI:Soft, Non tender, Bowel sounds present Extremities/Musculoskeletal:normal inspection, no edema, R hip mildly palpable mass Neurologic/Psych:AAOX3, grossly no focal neurological deficits Skin: normal color, warm Results & Data Results & Data Vital Signs (Past 12 Hours) Vital Signs Temp Pulse Resp BP Pulse Ox O2 Del Method 08/07/23 15:28 37.0 C 88 16 104/67 91 Room Air 08/07/23 06:58 36.8 C 92 H 16 112/75 92 Room Air Laboratory Results Short CBC 08/07/23 Range/Units 05:37 WBC 2.97 L (4.8-10.8) K/ul Hgb 10.8 L (12.0-16.0) g/dl Hct 34.3 L (37.0-47.0) % Plt Count 227 (130-400) K/uL BMP 08/07/23 05:37 Sodium 135 L Potassium 4.4 Chloride 101 Carbon Dioxide 26 BUN 16 Creatinine 0.60 Glucose 113 H Calcium 8.9
[2023-08-07] MEDS: diphenhydrAMINE 2%/ZINC 0.1% CREAM 28.4GM TUBE EXT PRN (22:03)
[2023-08-08] MEDS: KETOROLAC 30 MG/ML VIAL IV ONE (01:35)
[2023-08-08] MEDS: SODIUM CHLORIDE 0.9% 1,000 ML IV ONE (01:41)
[2023-08-08] MEDS: tiZANidine HCL 4 MG TABLET PO PRN (01:50)
[2023-08-08] MEDS: oxyCODONE HCL IR 5 MG TAB (IMMEDIATE RELEASE) PO PRN (02:50)
[2023-08-08] MEDS: MoRPHine SULFATE 10 MG/ML CARP/VIAL IV PRN (05:15)
[2023-08-08] MEDS: ONDANSETRON INJ 2 MG/ML 2 ML VIAL IV PRN (05:20)
[2023-08-08 07:20] LABS: Hematocrit (blood only) 31.8 % (37.0-47.0); Hemoglobin 10.4 g/dl (12.0-16.0); Mean Corpuscular Hemoglobin 29.9 pg (25.0-34.0); Mean Corpuscular Hgb Conc 32.7 g/dL (32.0-36.0); Mean Corpuscular Volume 91.4 fL (80.0-100.0); Mean Platelet Volume 8.7 fL (9.4-12.4); Platelet Count 202 K/uL (130-400); RDW Coefficient of Variation 15.6 % (11.5-14.5); RDW Standard Deviation 51.4 fL (36.4-46.3); Red Blood Count 3.48 M/uL (4.20-5.40); White Blood Count 2.51 K/ul (4.8-10.8)
[2023-08-08 07:37] LABS: BUN Creatinine Ratio 35.3 (10-20); Creatinine Clr Calc Pharmacy 98.6 ml/min; Est GFR (African American) 113.3 ml/min; Est GFR (Non-African American) 97.8 ml/min; Magnesium 1.9 mg/dl (1.7-2.4); Potassium 4.6 mmol/L (3.5-5.1)
[2023-08-08] MEDS ORDERED: bisacodyL 10 MG SUPP PR PRN (13:59)
--- NOTE | 2023-08-08 14:33 | Ultrasound Report ---
Ultrasound-guided right groin mass core biopsy INDICATION: Right iliac chain lymphadenopathy extending into the right groin PROCEDURE: Procedure and risks were explained. Informed consent was obtained. A final timeout was com pleted. The right groin was prepped and draped in sterile fashion. 1% buffered lidocaine was utilized for skin anesthesia. The patient received 25 mcg fentanyl IV. Utilizing ultrasound guidance, an 18-gauge core biopsy needle was advanced into the right groin mass. Ultrasound images were obtained. 4 cores were obtained and given to the pathologist for review. The needle was removed and Band-Aid applied. The patient tolerated the procedure well. Vital signs will b e monitored postprocedure. IMPRESSION: Right groin mass core biopsy as detailed above. Performed, dictated, and signed by Alexys Pickett PA-C; to be co-signed by Dr. Gael Ha. Electronically signed by: Gael Ha M.D. 08/08/2023 2:59 PM
[2023-08-08] MEDS: CHECK fentaNYL PATCH PLACEMENT SCH (15:08)
--- NOTE | 2023-08-08 16:55 | Hospitalist Progress Note ---
Date of Service August 08, 2023 Assessment & Plan (1) Mass of buttock: Plan: Suspected lymphoma/metastatic disease Right gluteal mass Splenomegaly with retroperitoneal lymphadenopathy Leukopenia, normocytic anemia -CT abd/pelvis:There is marked masslike expansion of the right gluteus medius muscle extending into the right concrete pump operator helper foramen. There is also mass involving the right rectus femoris muscle and the left gluteus minimus. Additionally, the spleen is mildly enlarged with several splenic masses. There are also enlarged retroperitoneal lymph nodes, as well as right iliac chain lymphadenopathy extending into tube the right groin. This constellation of findings is highly suggestive of a neoplastic process such as lymphoma. --CT Brown:Lymphadenopathy is seen in the left axilla and right greater than left wesley. Findings are suspicious for neoplastic process such as lymphoma. --MRI Brain:No acute abnormality and in particular no evidence of metastatic disease. --Lumbar CT:Degenerative changes without evidence of acute bony injury. -- Peripheral smear: No overt changes of neoplastic process or hemolytic anemia Appreciate oncology Input Pain control PT OT as able Had lymph node biopsy by IR today Pathology pending May benefit from rehab placement Needs follow-up with oncology on discharge UTI Urine culture ESBL E. coli Empirically on Rocephin>> ertapenem on 08/07/2023 Continue current management Hypomagnesemia Replete electrolytes as needed Monitor Constipation Continue bowel regimen DM II HbA1c 7.0 Hold home regimen Continue insulin while hospitalized Monitor BGs HTN HLD Continue home medications Monitor GERD Continue PPI Hypothyroidism: Elevated TSH, normal free T4 Continue levothyroxine 150 mcg daily Depression: Continue citalopram DVT Px: Lovenox SQ CODE STATUS Full code Admission and Anticipated Discharge Date Admission Date: August 05, 2023 Subjective Patient is seen and examined at bedside Patient has lymph node biopsy by IR today Still has right hip pain Family at bedside Reports constipation Denies any chest pain, dyspnea, nausea, vomiting, dizziness Review of Systems Review of Systems: All systems reviewed & are unremarkable except as noted in Subjective Physical Exam Physical Exam: Physical Exam: Vitals signs as noted above General Appearance:Obese, no apparent distress Head: normocephalic, Atraumatic Eyes: normal inspection, EOMI Neck: supple, Trachea midline Respiratory/Chest: Normal breath sounds, CTA, No accessory muscle use Cardiovascular: S1, S2, No murmur Abdomen/GI:Soft, Non tender, Bowel sounds present Extremities/Musculoskeletal:normal inspection, no edema, R hip mildly palpable mass Neurologic/Psych:AAOX3, grossly no focal neurological deficits Skin: normal color, warm Results & Data Results & Data Vital Signs (Past 12 Hours) Vital Signs Temp Pulse Resp BP Pulse Ox O2 Del Method 08/08/23 15:08 36.3 C L 93 H 16 128/83 96 Room Air 08/08/23 07:34 36.6 C 82 16 97/64 L 94 Room Air 08/08/23 05:04 74 19 110/74 96 Room Air Laboratory Results Short CBC 08/08/23 Range/Units 06:58 WBC 2.51 L (4.8-10.8) K/ul Hgb 10.4 L (12.0-16.0) g/dl Hct 31.8 L (37.0-47.0) % Plt Count 202 (130-400) K/uL BMP 08/08/23 06:58 Sodium 136 Potassium 4.6 Chloride 102 Carbon Dioxide 28 BUN 24 H Creatinine 0.68 Glucose 121 H Calcium 9.0
[2023-08-08] MEDS: fentaNYL 12 MCG/HR TDSY TD SCH (17:31)
[2023-08-08] MEDS: fentaNYL citrate PF 100 MCG/2 ML VIAL ONE ×2 (19:13)
[2023-08-09] MEDS: DOCUSATE SODIUM/SENNA 50/8.6MG TAB PO SCH (00:43)
[2023-08-09] MEDS: LACTULOSE SYRUP 30 GM/45 ML UDP PO STA (00:43)
[2023-08-09] MEDS: METHYLNALTREXONE BROMIDE 12 MG/0.6 ML VIAL SQ STA (03:59)
[2023-08-09 09:27] LABS: BUN Creatinine Ratio 42.3 (10-20); Calcium 9.4 mg/dl (8.6-10.3); Est GFR (African American) 123.8 ml/min; Est GFR (Non-African American) 106.8 ml/min; Potassium 4.7 mmol/L (3.5-5.1)
--- NOTE | 2023-08-09 17:10 | Hospitalist Progress Note ---
Date of Service August 09, 2023 Assessment & Plan (1) Mass of buttock: Plan: Suspected lymphoma/metastatic disease Right gluteal mass Splenomegaly with retroperitoneal lymphadenopathy Leukopenia, normocytic anemia -CT abd/pelvis:There is marked masslike expansion of the right gluteus medius muscle extending into the right chamfering machine operator foramen. There is also mass involving the right rectus femoris muscle and the left gluteus minimus. Additionally, the spleen is mildly enlarged with several splenic masses. There are also enlarged retroperitoneal lymph nodes, as well as right iliac chain lymphadenopathy extending into tube the right groin. This constellation of findings is highly suggestive of a neoplastic process such as lymphoma. --CT Brown:Lymphadenopathy is seen in the left axilla and right greater than left wesley. Findings are suspicious for neoplastic process such as lymphoma. --MRI Brain:No acute abnormality and in particular no evidence of metastatic disease. --Lumbar CT:Degenerative changes without evidence of acute bony injury. -- Peripheral smear: No overt changes of neoplastic process or hemolytic anemia Appreciate oncology Input Pain control PT OT as able Had lymph node biopsy by IR today Pathology pending Needs follow-up with oncology on discharge Discussed with oncology today--further management will be based on pathology. Will likely discharge home tomorrow UTI Urine culture ESBL E. coli Empirically on Rocephin>> ertapenem on 08/07/2023 Continue current management Plan to transition to p.o. antibiotics on discharge Hypomagnesemia Replete electrolytes as needed Monitor Constipation Continue bowel regimen DM II HbA1c 7.0 Hold home regimen Continue insulin while hospitalized Monitor BGs HTN HLD Continue home medications Monitor GERD Continue PPI Hypothyroidism: Elevated TSH, normal free T4 Continue levothyroxine 150 mcg daily Depression: Continue citalopram DVT Px: Lovenox SQ CODE STATUS Full code Admission and Anticipated Discharge Date Admission Date: August 05, 2023 Subjective Patient is seen and examined at bedside Right hip pain is controlled Had bowel movement today No new complaints Denies any chest pain, dyspnea, nausea, vomiting, dizziness Review of Systems Review of Systems: All systems reviewed & are unremarkable except as noted in Subjective Physical Exam Physical Exam: Physical Exam: Vitals signs as noted above General Appearance:Obese, no apparent distress Head: normocephalic, Atraumatic Eyes: normal inspection, EOMI Neck: supple, Trachea midline Respiratory/Chest: Normal breath sounds, CTA, No accessory muscle use Cardiovascular: S1, S2, No murmur Abdomen/GI:Soft, Non tender, Bowel sounds present Extremities/Musculoskeletal:normal inspection, no edema, R hip mildly palpable mass Neurologic/Psych:AAOX3, grossly no focal neurological deficits Skin: normal color, warm Results & Data Results & Data Vital Signs (Past 12 Hours) Vital Signs Temp Pulse Resp BP Pulse Ox O2 Del Method 08/09/23 15:37 36.8 C 91 H 16 114/73 92 Room Air 08/09/23 09:18 Room Air 08/09/23 06:58 36.9 C 80 16 116/77 93 Room Air Laboratory Results [facility] 08/09/23 08:37 Sodium 134 L Potassium 4.7 Chloride 100 Carbon Dioxide 27 BUN 22 Creatinine 0.52 L Glucose 202 H Calcium 9.4
[2023-08-10] MEDS: KETOROLAC 30 MG/ML VIAL IV ONE (04:52)
[2023-08-10] MEDS: TROLAMINE SALICYLATE 10% CRM 255 APPLN/85 GM TUBE EXT PRN (04:53)
[2023-08-10] MEDS: ACETAMINOPHEN 1000 MG/100 ML IV IV ONE (10:30)
[2023-08-10] MEDS: fentaNYL citrate PF 100 MCG/2 ML VIAL ONE (10:30)
[2023-08-10] MEDS ORDERED: MoRPHine SULFATE 4 MG/ML 1 ML CARP\\VIAL IV PRN (11:44)
[2023-08-10] MEDS: HYDROmorphone INJ 0.5 MG/0.5 ML SYR IV STA (11:47)
--- NOTE | 2023-08-10 11:54 | Hematology/Oncology Prog Note ---
Date of Service August 10, 2023 Assessment & Plan (1) Lymphadenopathy: Plan: Prelim diagnosis suggest that we are dealing with a lymphoma. However we do not have enough tissue to send for flow. Keeping this in mind Dr. Gray from pathology recommended bone marrow biopsy. Bone marrow biopsy was performed today. We will continue to wait for results from pathology before formulating a plan. Plan Medical oncology will continue to follow the patient make appropriate recommendations Admission and Anticipated Discharge Date Admission Date: August 05, 2023 Subjective Pain is still there however better controlled with current use of opiates. Reports no other issues. Reports no nausea vomiting. Reports no fever chills or night sweats. Physical Exam Constitutional: WD/WN, vitals as above Eyes: PERRL, conjunctivae normal, anicteric sclerae ENMT: external ear and nose normal, oropharynx normal Neck: trachea midline, no thyromegaly Respiratory: normal respiratory effort, lungs clear to auscultation Cardiovascular: RRR, no murmur, no edema Gastrointestinal (Abdomen): normal bowel sounds, soft, nontender, no hepatosplenomegaly Musculoskeletal: no cyanosis or clubbing, extremities motor strength 5/5 Skin: no rashes, warm and dry Results & Data Vital Signs (Past 12 Hours) Vital Signs Pulse Resp BP Pulse Ox O2 Del Method 08/10/23 07:42 Room Air 08/10/23 06:58 73 14 120/75 94 Room Air
--- NOTE | 2023-08-10 11:54 | Procedure Note ---
Procedure Note Date of Service August 10, 2023 Note The patient was identified by name, previously a consent had been obtained for a bone marrow biopsy. The patient was placed in a left lateral decubitus position. Right posterior iliac spine was identified by palpation. The area was cleaned and made sterile with povidone iodine. Local anesthetic was injected. A small incision was made and a Jamshidi needle was inserted. 5 cc of aspirate was withdrawn. Core was withdrawn. The specimens were processed and sent to lab for evaluation. The area was cleaned postprocedure and bandage was placed. The patient was asked to lie on her back for 30 minutes. A total of 20 minutes were spent in the procedure. Estimated blood loss was 5 cc. Postprocedure physical exam: General: Patient alert oriented HEENT: Pupils equal round reactive to light Neck: Supple Respiratory: Clear breath sounds Abdomen: Soft nontender nondistended Coding
[2023-08-10 14:44] LABS: Basophils # (auto) 0.02 K/uL (0.00-0.20); Basophils % (auto) 0.7 %; Eosinophils # (auto) 0.04 K/uL (0.00-0.50); Eosinophils % (auto) 1.4 %; Hematocrit (blood only) 33.4 % (37.0-47.0); Hemoglobin 10.5 g/dl (12.0-16.0); Immature Granulocytes # (auto) 0.04 K/uL (0.01-0.20); Immature Granulocytes % (auto) 1.4 %; Lymphocytes # (auto) 0.73 K/uL (1.20-3.40); Lymphocytes % (auto) 25.6 %; Mean Corpuscular Hemoglobin 28.7 pg (25.0-34.0); Mean Corpuscular Hgb Conc 31.4 g/dL (32.0-36.0); Mean Corpuscular Volume 91.3 fL (80.0-100.0); Mean Platelet Volume 8.7 fL (9.4-12.4); Monocytes # (auto) 0.19 K/uL (0.11-0.59); Monocytes % (auto) 6.7 %; Neutrophils # (auto) 1.83 K/uL (1.40-6.50); Neutrophils % (auto) 64.2 %; Nucleated RBC # (auto) 0.02 K/uL (0.00-0.12); Nucleated RBC % (auto) 0.7 %; Platelet Count 222 K/uL (130-400); RDW Coefficient of Variation 15.3 % (11.5-14.5); RDW Standard Deviation 50.5 fL (36.4-46.3); Red Blood Count 3.66 M/uL (4.20-5.40); White Blood Count 2.85 K/ul (4.8-10.8)
--- NOTE | 2023-08-10 15:22 | Hospitalist Progress Note ---
Date of Service August 10, 2023 Assessment & Plan (1) Mass of buttock: Plan: Suspected lymphoma/metastatic disease Right gluteal mass Splenomegaly with retroperitoneal lymphadenopathy Leukopenia, normocytic anemia -CT abd/pelvis:There is marked masslike expansion of the right gluteus medius muscle extending into the right lace paper machine operator foramen. There is also mass involving the right rectus femoris muscle and the left gluteus minimus. Additionally, the spleen is mildly enlarged with several splenic masses. There are also enlarged retroperitoneal lymph nodes, as well as right iliac chain lymphadenopathy extending into tube the right groin. This constellation of findings is highly suggestive of a neoplastic process such as lymphoma. --CT Brown:Lymphadenopathy is seen in the left axilla and right greater than left wesley. Findings are suspicious for neoplastic process such as lymphoma. --MRI Brain:No acute abnormality and in particular no evidence of metastatic disease. --Lumbar CT:Degenerative changes without evidence of acute bony injury. -- Peripheral smear: No overt changes of neoplastic process or hemolytic anemia Appreciate oncology Input Pain control PT OT as able Had lymph node biopsy on 08/09/2023, bone biopsy on 08/10/2023 Pathology pending Needs follow-up with oncology on discharge Further management based on pathology studies UTI Urine culture ESBL E. coli Empirically on Rocephin>> ertapenem on 08/07/2023 Continue current management Plan to transition to p.o. antibiotics on discharge Hypomagnesemia Replete electrolytes as needed Monitor Constipation Continue bowel regimen DM II HbA1c 7.0 Hold home regimen Continue insulin while hospitalized Monitor BGs HTN HLD Continue home medications Monitor GERD Continue PPI Hypothyroidism: Elevated TSH, normal free T4 Continue levothyroxine 150 mcg daily Depression: Continue citalopram DVT Px: Lovenox SQ CODE STATUS Full code Admission and Anticipated Discharge Date Admission Date: August 05, 2023 Subjective Patient is seen and examined at bedside No new complaints Discussed with oncology today Plan for bone biopsy today Right hip pain is persistent Denies any chest pain, dyspnea, nausea, vomiting, dizziness Review of Systems Review of Systems: All systems reviewed & are unremarkable except as noted in Subjective Physical Exam Physical Exam: Physical Exam: Vitals signs as noted above General Appearance:Obese, no apparent distress Head: normocephalic, Atraumatic Eyes: normal inspection, EOMI Neck: supple, Trachea midline Respiratory/Chest: Normal breath sounds, CTA, No accessory muscle use Cardiovascular: S1, S2, No murmur Abdomen/GI:Soft, Non tender, Bowel sounds present Extremities/Musculoskeletal:normal inspection, no edema, R hip mildly palpable mass Neurologic/Psych:AAOX3, grossly no focal neurological deficits Skin: normal color, warm Results & Data Results & Data Vital Signs (Past 12 Hours) Vital Signs Pulse Resp BP Pulse Ox O2 Del Method 08/10/23 07:42 Room Air 08/10/23 06:58 73 14 120/75 94 Room Air Laboratory Results Short CBC 08/08/23 08/10/23 Range/Units 06:58 14:26 WBC 2.51 L 2.85 L (4.8-10.8) K/ul Hgb 10.4 L 10.5 L (12.0-16.0) g/dl Hct 31.8 L 33.4 L (37.0-47.0) % Plt Count 202 222 (130-400) K/uL
[2023-08-10 22:44] LABS: Bone Marrow Smear SLHOLD
[2023-08-10] MEDS: HYDROmorphone INJ 0.5 MG/0.5 ML SYR IV PRN (23:34)
[2023-08-11 07:58] LABS: Hematocrit (blood only) 31.4 % (37.0-47.0); Hemoglobin 10.1 g/dl (12.0-16.0); Mean Corpuscular Hemoglobin 29.2 pg (25.0-34.0); Mean Corpuscular Hgb Conc 32.2 g/dL (32.0-36.0); Mean Corpuscular Volume 90.8 fL (80.0-100.0); Mean Platelet Volume 8.8 fL (9.4-12.4); Nucleated RBC # (auto) 0.02 K/uL (0.00-0.12); Nucleated RBC % (auto) 0.7 %; Platelet Count 218 K/uL (130-400); RDW Coefficient of Variation 15.5 % (11.5-14.5); RDW Standard Deviation 50.8 fL (36.4-46.3); Red Blood Count 3.46 M/uL (4.20-5.40); White Blood Count 2.98 K/ul (4.8-10.8)
[2023-08-11 08:18] LABS: BUN Creatinine Ratio 34.5 (10-20); Calcium 8.8 mg/dl (8.6-10.3); Creatinine Clr Calc Pharmacy 115.6 ml/min; Est GFR (African American) 119.4 ml/min; Potassium 4.2 mmol/L (3.5-5.1)
--- NOTE | 2023-08-11 12:28 | Surgery Consultation ---
Date of Consultation August 11, 2023 Assessment & Plan (1) Lymphadenopathy: Her CT images and results were personally viewed and interpreted by myself She has an ill-defined right buttock mass as well as right retroperitoneal and left axillary lymphadenopathy We discussed the case with IR and they are going to try to get more tissue from the axilla Would also recommend CNB of right buttock mass if more tissue is needed From a surgical standpoint, the right retroperitoneal nodes are too deep for excisional biopsy Would not recommend an open biopsy of the buttock mass If more tissue is needed I think the best approach would be and excisional biopsy of a left axillary lymph node with pre-operative localization Will await the pending pathology results and repeat biopsies from IR prior to consideration of any surgical biopsy (2) Mass of buttock: History of Present Illness Reason for Consultation: Lymphadenopathy, Right buttock mass Attending Physician: Titi Preston MD History of Present Illness This is a 58 yo female how was admitted to the hospital last week with sharp right hip pain for a few weeks. This pain radiated into her right buttock. No aggravating or relieving factors. She was found to have a right buttock and right retroperitoneal lymphadenopathy as well as left axillary and bilateral hilar lymphadenopathy concerning for lymphoma. She has never had surgery in either inguinal or axillary region. No blood thinners. She did undergo a CNB of right groin mass on 08/07 and a bone marrow biopsy yesterday. We are consulted for consideration of excisional biopsy. Allergies Allergy/AdvReac Type Severity Reaction Status Date / Time adhesive tape Allergy Mild Rash/Itchin Unverified 08/05/23 17:38 [facility] Home Medications Medication Instructions Recorded Confirmed Type metformin 1,000 mg tablet 1,000 mg PO BID ##0 09/21/09 08/05/23 History aspirin 81 mg tablet,delayed 81 mg PO QAM ##0 08/15/13 08/05/23 History release atorvastatin 20 mg tablet (Lipitor) 20 mg PO PM #0 tabs 08/15/13 08/05/23 History citalopram 20 mg tablet 20 mg PO QAM ##0 08/15/13 08/05/23 History lisinopril 10 mg tablet 10 mg PO QAM ##0 08/15/13 08/05/23 History insulin degludec 100 unit/mL (3 36 unit subcut QAM 05/15/21 08/05/23 History mL) subcutaneous pen (Tresiba FlexTouch U-100 insulin) alendronate 70 mg tablet 70 mg PO WK 08/05/23 08/05/23 History empagliflozin 25 mg tablet 25 mg PO QAM 08/05/23 08/05/23 History (Jardiance) levothyroxine 150 mcg tablet 150 mcg PO DAILYBB 08/05/23 08/05/23 History omeprazole 40 mg capsule,delayed 40 mg PO DAILYBB 08/05/23 08/05/23 History release oxybutynin chloride 5 mg tablet 5 mg PO AMHS 08/05/23 08/05/23 History semaglutide 1 mg/dose (4 mg/3 mL) 1 mg subcut WK 08/05/23 08/05/23 History subcutaneous pen injector (Ozempic) Patient History Medical History Delivered by section Depression Hypothyroidism GERD (gastroesophageal reflux disease) HLD (hyperlipidemia) HTN (hypertension) DM2 (diabetes mellitus, type 2) Surgical History Hx of tonsillectomy H/O tubal ligation H/O dilation and curettage H/O hernia repair Family History Other Cancer Social History Smoking Status: Former smoker Second Hand Exposure: No; Do You Dip or Chew Tobacco: No; Tobacco Cessation Education Requested by Patient: No Hx Alcohol Use: Yes Alcohol type: wine Hx Substance Use: No Preferred Language: Luxembourgish Communication Ability: Effective [employer]ors [employer]ulatory [employer] Required: No Beliefs That Will Affect Care: None Current Living Situation: Spouse Feels Safe at Home: Yes Safety Concerns: Feels Safe At This Time Assistive Devices: Cane Review of Systems Constitutional: no fever and no chills Eyes: no blind spots and no worsening vision Ear, Nose, Mouth, Throat: no ear pain and no hearing loss Respiratory: no cough and no dyspnea Cardiovascular: no chest pain and no dyspnea on exertion Gastrointestinal: no abdominal pain, no nausea and no vomiting Genitourinary: no dysuria and no urinary urgency Musculoskeletal: no back pain and no neck pain Integumentary: no acne, no skin ulcer and no erythema Neurologic: no paresthesia and no headache(s) Psychiatric: no behavioral changes and no depression Hematologic / Lymphatic: no easy bleeding and no easy bruising Physical Exam Constitutional: WD/WN, vitals as above Eyes: PERRL, conjunctivae normal, anicteric sclerae ENMT: external ear and nose normal, oropharynx normal Neck: trachea midline, no thyromegaly Respiratory: normal respiratory effort, lungs clear to auscultation Cardiovascular: RRR, no murmur, no edema Gastrointestinal (Abdomen): normal bowel sounds, soft, nontender, no hepatosplenomegaly Musculoskeletal: no cyanosis or clubbing, extremities motor strength 5/5 Skin: no rashes, warm and dry Neurologic: PERRL, EOMI, accommodation nl, no face palsy, no dysarthria Psychiatric: A+Ox3, euthymic affect Lymphatic: no cervical lymphadenopathy and no axillary lymphadenopathy Results & Data Vital Signs (Past 12 Hours) Vital Signs Temp Pulse Resp BP Pulse Ox O2 Del Method 08/11/23 07:32 37.0 C 82 16 111/70 95 Room Air Laboratory Results CT chest diagnostic wo/w con CLINICAL HISTORY: Eval for metastasis TECHNIQUE: Multidetector row helical CT of the chest was performed without and with intravenous contrast. Coronal and sagittal reformations were obtained. Automated dose lowering techniques and/or adjustment according to patient size were utilized for this exam. CT DOSE: 1565.74 mGy.cm Comparison: Comparison is made to rib series 08/15/[address] abdomen pelvis 08/05/2023 FINDINGS: Lungs and pleura: Minimal atelectatic changes are seen. There are a few additional nodules are seen on the left. There is a 3 mm nodule in the lingula (image 110). Heart and pericardium: Heart size is normal. No pericardial effusion. Vessels: Moderate atherosclerotic changes in the aorta and coronary arteries. Mediastinum and wesley: Multiple enlarged lymph nodes are seen measuring up to 23 mm in the right hilum and 10 mm in the left hilum. Chest wall and lower neck: Left axillary nodes measure up to 12 mm. Subcentimeter lymph nodes are seen in the right axilla. Abdomen: For findings below the diaphragm, please refer to CT of the abdomen dated the same. Bones: Degenerative changes in the thoracic spine. IMPRESSION: 1. Lymphadenopathy is seen in the left axilla and right greater than left wesley. Findings are suspicious for neoplastic process such as lymphoma. 2. Patulous and fluid-filled esophagus, correlation for achalasia is recommended. Diagnostic Findings IMPRESSION: 1. There is marked masslike expansion of the right gluteus medius muscle extending into the right strap cutting machine operator foramen. There is also mass involving the right rectus femoris muscle and the left gluteus minimus. Additionally, the spleen is mildly enlarged with several splenic masses. There are also enlarged retroperitoneal lymph nodes, as well as right iliac chain lymphadenopathy extending into tube the right groin. This constellation of findings is highly suggestive of a neoplastic process such as lymphoma. Tissue sampling will likely be required for further assessment. 2. The skeletal structures are significantly heterogeneous suggesting metastatic bone involvement. 3. There is an air-fluid level within the bladder, possibly related to instrumentation. Correlate with clinical findings and urinalysis. 4. Coronary artery atherosclerosis. 5. Moderate to severe constipation. 6. Additional findings as above. PG Care Time/CCT Total # of Minutes Spent Total Time Spent with Patient: Total time spent is greater than 50% in coordination of care (as documented) at patient's floor/unit and/or counseling patient: Coding Level of Care Code 76658 IN/OBS CONSULT LVL 5,80M Diagnoses Lymphadenopathy R59.1 Mass of buttock R22.2
[2023-08-11] MEDS: fentaNYL 25 MCG/HR TDSY TD SCH (12:49)
[2023-08-11] MEDS: fentaNYL citrate PF 100 MCG/2 ML VIAL ONE (14:20)
--- NOTE | 2023-08-11 14:42 | Ultrasound Report ---
ULTRASOUND-GUIDED LEFT AXILLARY LYMPH NODE CORE BIOPSY CLINICAL HISTORY: Abnormal left axillary lymph node PROCEDURE: Procedure and risks were explained. Informed consent was obtained. A final timeout was com pleted. The left axilla was prepped and draped in sterile fashion. 1% buffered lidocaine was utilized for skin anesthesia. The patient received 100 mcg fentanyl IV. Utilizing ultrasound guidance, an 18-gauge core biopsy needle was advanced into the left axillary lym ph node. Ultrasound images were obtained. 4 cores were obtained and given to the pathologist for revi ew. The patient tolerated the procedure well. IMPRESSION: Ultrasound-guided left axillary lymph node core biopsy as above. Performed, dictated, and signed by Alexys Pickett PA-C; to be co-signed by Dr. Gael Ha. Electronically signed by: Gael Ha M.D. 08/11/2023 3:35 PM
[2023-08-11] MEDS: CHECK fentaNYL PATCH PLACEMENT SCH (15:18)
--- NOTE | 2023-08-11 15:52 | Hospitalist Progress Note ---
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 There is also mass involving the right rectus femoris muscle and the left gluteus minimus. Additionally, the spleen is mildly enlarged with several splenic masses. There are also enlarged retroperitoneal lymph nodes, as well as right iliac chain lymphadenopathy extending into tube the right groin. This constellation of findings is highly suggestive of a neoplastic process such as lymphoma. --CT Chest: Lymphadenopathy is seen in the left axilla and right greater than left wesley. Findings are suspicious for neoplastic process such as lymphoma. --MRI Brain: No acute abnormality and in particular no evidence of metastatic disease. --Lumbar CT: Degenerative changes without evidence of acute bony injury. -- Peripheral smear: No overt changes of neoplastic process or hemolytic anemia Appreciate oncology Input - Pain control PT OT as able Had lymph node biopsy on 08/09/2023, bone biopsy on 08/10/2023 with pathology pending Gen surg consulted today for consideration of excisional biopsy - feel R retroperitoneal nodes are too deep. Recommend awaiting pending pathology, discussed with IR and will attempt to obtain more tissue from axilla Needs follow-up with oncology on discharge Further management based on pathology studies Working to optimize pain control for R gluteal mass. Increasing fentanyl patch to 25mcg, added IV Dilaudid PRN for severe breakthrough pain with some improvement UTI Urine culture ESBL E. coli Empirically on Rocephin>> ertapenem on 08/07/2023 Continue current management Plan to transition to p.o. antibiotics on discharge Hypomagnesemia Replete electrolytes as needed Monitor Constipation Continue bowel regimen HTN HLD Continue home medications Monitor GERD Continue PPI Hypothyroidism: Elevated TSH, normal free T4 Continue levothyroxine 150 mcg daily Depression: Continue citalopram DVT Px: Lovenox SQ CODE STATUS Full code Patient seen in collaboration with Dr. Preston. Please see addendum. I spent a total of 45 minutes coordinating, documenting, and providing care for this patient excluding time spent in the performance of separately billed services. Admission and Anticipated Discharge Date Admission Date: August 05, 2023 Supervising Physician Co-Signing Physician Notes Patient is seen and examined at bedside. Reports persistent pain of right hip especially at night. Constipation resolved. Denies any chest pain, dyspnea, nausea, vomiting, abdominal pain. Discussed with surgery and oncology today. Physical Exam: Vitals signs as noted above General Appearance:Obese, no apparent distress Head: normocephalic, Atraumatic Eyes: normal inspection, EOMI Neck: supple, Trachea midline Respiratory/Chest: Normal breath sounds, CTA, No accessory muscle use Cardiovascular: S1, S2, No murmur Abdomen/GI:Soft, Non tender, Bowel sounds present Extremities/Musculoskeletal:normal inspection, no edema, R hip mildly palpable mass Neurologic/Psych:AAOX3, grossly no focal neurological deficits Skin: normal color, warm Suspected lymphoma/metastatic disease Right gluteal mass Splenomegaly with retroperitoneal lymphadenopathy UTI Imaging studies were reviewed Had biopsy of lymph node, bone marrow by IR Plan for possible excisional biopsy by surgery Appreciate surgery, oncology input Bowel regimen to prevent constipation Pain control Continue PT OT Continue ertapenem for UTI Lymphoma workup per oncology Needs follow-up with oncology on discharge I personally interviewed and examined at bedside. Patient's care is coordinated with Darlene Kim PA-C. I have reviewed the advanced practitioner's documentation, and I agree with, and take responsibility for that plan of care. Please refer to the documentation above for details of patient's presentation and for discussion of other issues. I spent a total [id number] coordinating, documenting, and providing care for this patient excluding time spent in the performance of separately billed services. Subjective Seen and examined in 381 bed 1 in follow-up for gluteal mass. Continues to have pain in right hip radiating buttocks but improved with addition of IV Dilaudid overnight. Plan to increase fentanyl patch dose today. Care being coordinated with oncology and general surgery. Denies any other new complaints overnight. No fever, chills, lightheadedness, chest pain, shortness of breath, nausea, vomiting, abdominal pain, dysuria, diarrhea or constipation. Review of Systems Review of Systems: At least ten systems reviewed and negative except as noted in the HPI. Physical Exam Physical Exam: Please see Dr. Preston's addendum for physical exam. Results & Data Results & Data Vital Signs (Past 12 Hours) Vital Signs Temp Pulse Resp BP Pulse Ox O2 Del Method 08/11/23 15:17 36.9 C 83 16 122/74 92 Room Air 03/14/24 07:32 37.0 C 82 16 111/70 95 Room Air Laboratory Results Short CBC 08/11/23 Range/Units 07:23 WBC 2.98 L (4.8-10.8) K/ul Hgb 10.1 L (12.0-16.0) g/dl Hct 31.4 L (37.0-47.0) % Plt Count 218 (130-400) K/uL BMP 08/11/23 07:23 Sodium 134 L Potassium 4.2 Chloride 101 Carbon Dioxide 26 BUN 20 Creatinine 0.58 L Glucose 109 H Calcium 8.8 Diagnostic Findings Lumbar Spine CT 08/05/23 11:42 CT lumbar spine wo con CLINICAL HISTORY: low back pain, right sided TECHNIQUE: Multidetector row helical CT of the lumbar spine was performed without administration of intravenous contrast. Coronal and sagittal reformations were obtained. Automated dose lowering techniques and/or adjustment according to patient size were utilized for this exam. CT DOSE: 1062.24 mGy.cm Comparison: Comparison is made to CT abdomen pelvis 07/16/2020 FINDINGS: For counting purposes, the last complete intervertebral disc space is considered L5-S1. No acute fractures are identified. Prominent osteophyte formation and mild loss of height of the L3 vertebral body is unchanged from prior exam. Vertebral body alignment is within normal limits. Surrounding soft tissues are unremarkable. IMPRESSION: Degenerative changes without evidence of acute bony injury. ACT 112: Negative or not required by law. Electronically signed by: Rishi Mckeon M.D. 08/05/2023 12:37 PM Abdomen/Pelvis CT 08/05/23 12:52 CT SCAN OF THE ABDOMEN AND PELVIS WITH IV CONTRAST CLINICAL HISTORY: Urinary tract infection. Back pain. COMPARISON STUDY: Abdominal CT dated 05/15/2021. TECHNIQUE: Following the IV administration of 93 cc of Optiray 320, CT scan of the abdomen and pelvis is performed from the lung bases to the proximal femora. Images are reviewed in the axial, sagittal, and coronal planes. IV contrast was administered without complication. A dose lowering technique was utilized adhering to the principles of ALARA. CT DOSE: 1342.8 mGy.cm FINDINGS: Lung bases: The heart is normal in size and without pericardial effusion. There are coronary artery calcifications. The lung bases are clear. Liver: The contrast-enhanced liver is normal in size, contour, and attenuation. There is no intrahepatic biliary ductal dilatation. The hepatic veins and portal veins are patent. Gallbladder: The gallbladder is distended but otherwise normal in appearance.. Spleen: The spleen is mildly enlarged measuring 13.5 cm in length. There are numerous low attenuation splenic mass lesions. These measure up to 4.8 cm. Pancreas: Unremarkable. Adrenal glands: Unremarkable. Kidneys: The contrast enhanced kidneys are normal in size and without hydronephrosis. The kidneys enhance symmetrically. Abdominal vasculature: The abdominal aorta is normal in course and caliber noting mild to moderate atherosclerotic calcification. Bowel: There is moderate to severe constipation. No bowel obstruction is seen. The appendix is not visualized. Peritoneum: There is no intraperitoneal free air or abdominal ascites. There is evidence of previous ventral hernia repairs. A residual fat-containing hernia is seen in the left ventral pelvis. Lymphadenopathy: There are mildly enlarged retroperitoneal lymph nodes. An aortocaval node on image #136 measures 2.2 x 1.2 cm. A right iliac chain node on image #245 measures 1.9 x 1.6 cm. There is confluent lymphadenopathy along the right external iliac chain extending into the groin. This encases the iliac vessels and measures approximately 8 x 3.5 cm as seen on image #288. There are likely enlarged right groin nodes. The lesion on image #29 measures 2.6 cm. Pelvic viscera: There is an air-fluid level within the bladder. The bladder is otherwise normal as imaged. The uterus and adnexa are normal as visualized. There is marked masslike expansion of the right gluteus medius muscles which extends into the right obturator foramen. There may also be involvement of the proximal right rectus femoris muscle. A 2.7 cm lesion is seen in the left gluteus minimus muscle on image #210. Skeletal structures: The skeletal structures are heterogeneously osteopenic. There is mild lumbosacral spondylosis. There is a chronic superior endplate compression deformity of L3. Metastatic bony involvement is suspected throughout the bony structures. Sclerotic change is noted in the sacroiliac joints and pubic symphysis. IMPRESSION: 1. 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 There is also mass involving the right rectus femoris muscle and the left gluteus minimus. Additionally, the spleen is mildly enlarged with several splenic masses. There are also enlarged retroperitoneal lymph nodes, as well as right iliac chain lymphadenopathy extending into tube the right groin. This constellation of findings is highly suggestive of a neoplastic process such as lymphoma. Tissue sampling will likely be required for further assessment. 2. The skeletal structures are significantly heterogeneous suggesting metastatic bone involvement. 3. There is an air-fluid level within the bladder, possibly related to instrumentation. Correlate with clinical findings and urinalysis. 4. Coronary artery atherosclerosis. 5. Moderate to severe constipation. 6. Additional findings as above. ACT 112: Positive. There are findings on this exam that require communication between the performing entity and the patient following Patient Test Result Information Act ([place] Act 112) guidelines. Electronically signed by: Igor Mccall M.D. 08/05/2023 2:53 PM Brain MRI 08/05/23 17:10 MR brain wo/w con CLINICAL HISTORY: Eval for metastasis TECHNIQUE: Multiplanar and multisequence MR images of the brain were obtained prior to and following administration of gadolinium contrast. Comparison: None available at the time of this dictation. FINDINGS: No abnormal restricted diffusion is identified. The white matter is unremarkable. The ventricular system is normal in appearance. No mass or abnormal enhancement is seen. There is no mass effect or midline shift. There is no evidence of acute intraparenchymal hemorrhage. No extra axial fluid collections are seen. The corpus callosum, pituitary gland, and cerebellar tonsils appear grossly unremarkable. Flow voids of the major intracranial arterial vessels are identified. The imaged portions of the paranasal sinuses, mastoid air cells, and orbits are unrema rkable. IMPRESSION: No acute abnormality and in particular no evidence of metastatic disease. ACT 112: Negative or not required by law. Electronically signed by: Rishi Mckeon M.D. 08/05/2023 6:[address] 08/05/23 17:10 CT chest diagnostic wo/w con CLINICAL HISTORY: Eval for metastasis TECHNIQUE: Multidetector row helical CT of the chest was performed without and with intravenous contrast. Coronal and sagittal reformations were obtained. Automated dose lowering techniques and/or adjustment according to patient size were utilized for this exam. CT DOSE: 1565.74 mGy.cm Comparison: Comparison is made to rib series 08/15/[address] abdomen pelvis 08/05/2023 FINDINGS: Lungs and pleura: Minimal atelectatic changes are seen. There are a few a dditional nodules are seen on the left. There is a 3 mm nodule in the lingula (image 110). Heart and pericardium: Heart size is normal. No pericardial effusion. Vessels: Moderate atherosclerotic changes in the aorta and coronary arteries. Mediastinum and wesley: Multiple enlarged lymph nodes are seen measuring up to 23 mm in the right hilum and 10 mm in the left hilum. Chest wall and lower neck: Left axillary nodes measure up to 12 mm. Subcentimeter lymph nodes are seen in the right axilla. Abdomen: For findings below the diaphragm, please refer to CT of the abdomen dated the same. Bones: Degenerative changes in the thoracic spine. IMPRESSION: 1. Lymphadenopathy is seen in the left axilla and right greater than left wesley. Findings are suspicious for neoplastic process such as lymphoma. 2. Patulous and fluid-filled esophagus, correlation for achalasia is recommended. ACT 112: Positive. There are findings on this exam that require communication between the performing entity and the patient following Patient Test Result Information Act ([place] Act 112) guidelines. Electronically signed by: Rishi Mckeon M.D. 08/05/2023 6:28 PM Biopsy Ultrasound 08/08/23 07:00 Ultrasound-guided right groin mass core biopsy INDICATION: Right iliac chain lymphadenopathy extending into the right groin PROCEDURE: Procedure and risks were explained. Informed consent was obtained. A final timeout was completed. The right groin was prepped and draped in sterile fashion. 1% buffered lidocaine was utilized for skin anesthesia. The patient received 25 mcg fentanyl IV. Utilizing ultrasound guidance, an 18-gauge core biopsy needle was advanced into the right groin mass. Ultrasound images were obtained. 4 cores were obtained and given to the pathologist for review. The needle was removed and Band-Aid applied. The patient tolerated the procedure well. Vital signs will be monitored postprocedure. IMPRESSION: Right groin mass core biopsy as detailed above. Performed, dictated, and signed by Alexys Pickett PA-C; to be co-signed by Dr. Gael Ha. Electronically signed by: Gael Ha M.D. 08/08/2023 2:59 PM Lymph Node Biopsy Ultrasound 08/11/23 12:24 ULTRASOUND-GUIDED LEFT AXILLARY LYMPH NODE CORE BIOPSY CLINICAL HISTORY: Abnormal left axillary lymph node PROCEDURE: Procedure and risks were explained. Informed consent was obtained. A final timeout was completed. The left axilla was prepped and draped in sterile fashion. 1% buffered lidocaine was utilized for skin anesthesia. The patient received 100 mcg fentanyl IV. Utilizing ultrasound guidance, an 18-gauge core biopsy needle was advanced into the left axillary lymph node. Ultrasound images were obtained. 4 cores were obtained and given to the pathologist for review. The patient tolerated the procedure well. IMPRESSION: Ultrasound-guided left axillary lymph node core biopsy as above. Performed, dictated, and signed by Alexys Pickett PA-C; to be co-signed by Dr. Gael Ha. Electronically signed by: Gael Ha M.D. 08/11/2023 3:35 PM
[2023-08-12 07:03] LABS: Hematocrit (blood only) 31.1 % (37.0-47.0); Hemoglobin 9.9 g/dl (12.0-16.0); Mean Corpuscular Hgb Conc 31.8 g/dL (32.0-36.0); Mean Corpuscular Volume 91.2 fL (80.0-100.0); Mean Platelet Volume 8.8 fL (9.4-12.4); Nucleated RBC # (auto) 0.03 K/uL (0.00-0.12); Platelet Count 217 K/uL (130-400); RDW Coefficient of Variation 15.5 % (11.5-14.5); RDW Standard Deviation 51.7 fL (36.4-46.3); Red Blood Count 3.41 M/uL (4.20-5.40); White Blood Count 2.86 K/ul (4.8-10.8)
[2023-08-12 07:33] LABS: BUN Creatinine Ratio 34.5 (10-20); Calcium 8.9 mg/dl (8.6-10.3); Est GFR (African American) 121.5 ml/min; Est GFR (Non-African American) 104.9 ml/min; Potassium 3.9 mmol/L (3.5-5.1)
--- NOTE | 2023-08-12 14:00 | Pain Management Consultation ---
Date of Consultation August 12, 2023 Assessment & Plan (1) Mass of buttock: (2) Lymphadenopathy: (3) Splenic mass: Plan 1. Continue fentanyl patch at 25 mcg/hour. Could consider further dose increase if pain is not adequately controlled. 2. Continue oxycodone 10 mg every 6 hours if needed. 3. Continue IV Dilaudid 0.5 mg if needed for breakthrough pain. 4. She will continue the gabapentin 100 mg in the morning and I will add on an additional 300 mg at bedtime to see if it may be efficacious towards managing her pain. 5. Nothing to offer the patient interventionally at this time. 6. Could consider switching Oxycodone to PO Dilaudid if pain is not improved. History of Present Illness Reason for Consultation: Right bundle mass, right low back pain Attending Physician: Vladimir Curiel MD History of Present Illness This is a 58-year-old female that coming to the [facility] for low back pain, right hip pain, and pain into the right upper leg to the level of the knee. She did go to [facility] and there was concern for her hip. Right hip x-ray was performed and she was sent to physical therapy. Pain did not improve so she then went to the emergency department for further evaluation and found to have urinary tract infection as well as a gluteal mass with lymphadenopathy and evidence of metastatic disease concerning for possible lymphoma. Patient states that her pain is the worst at night or when she is lying supine or startled she will experience a shooting pain going down the right leg and spasming associated. She did have a recent increase of fentanyl patch from 12 to 25 mcg/hour and states that last night was the first night that she was able to sleep supine over the last several weeks. She does take oxycodone 10 mg every 6 hours and has used IV Dilaudid if needed for breakthrough pain. She describes this sharp shooting pain along the right upper leg as her primary pain complaint. Pain is currently 0/10. No leg weakness. Able to weight bear without issue. Allergies Allergy/AdvReac Type Severity Reaction Status Date / Time adhesive tape Allergy Mild Rash/Itchin Unverified 08/05/23 17:38 ess Home Medications Medication Instructions Recorded Confirmed Type metformin 1,000 mg tablet 1,000 mg PO BID ##0 09/21/09 08/05/23 History aspirin 81 mg tablet,delayed 81 mg PO QAM ##0 08/15/13 08/05/23 History release atorvastatin 20 mg tablet (Lipitor) 20 mg PO PM #0 tabs 08/15/13 08/05/23 History citalopram 20 mg tablet 20 mg PO QAM ##0 08/15/13 08/05/23 History lisinopril 10 mg tablet 10 mg PO QAM ##0 08/15/13 08/05/23 History insulin degludec 100 unit/mL (3 36 unit subcut QAM 05/15/21 08/05/23 History mL) subcutaneous pen (Tresiba FlexTouch U-100 insulin) alendronate 70 mg tablet 70 mg PO WK 08/05/23 08/05/23 History empagliflozin 25 mg tablet 25 mg PO QAM 08/05/23 08/05/23 History (Jardiance) levothyroxine 150 mcg tablet 150 mcg PO DAILYBB 08/05/23 08/05/23 History omeprazole 40 mg capsule,delayed 40 mg PO DAILYBB 08/05/23 08/05/23 History release oxybutynin chloride 5 mg tablet 5 mg PO AMHS 08/05/23 08/05/23 History semaglutide 1 mg/dose (4 mg/3 mL) 1 mg subcut WK 08/05/23 08/05/23 History subcutaneous pen injector (Ozempic) Patient History Medical History Delivered by section Depression Hypothyroidism GERD (gastroesophageal reflux disease) HLD (hyperlipidemia) HTN (hypertension) DM2 (diabetes mellitus, type 2) Surgical History Hx of tonsillectomy H/O tubal ligation H/O dilation and curettage H/O hernia repair Family History Other Cancer Social History Smoking Status: Former smoker Second Hand Exposure: No; Do You Dip or Chew Tobacco: No; Tobacco Cessation Education Requested by Patient: No Hx Alcohol Use: Yes Alcohol type: wine Hx Substance Use: No Preferred Language: Bahraini Communication Ability: Effective Supply Manager Required: No Beliefs That Will Affect Care: None Current Living Situation: Spouse Feels Safe at Home: Yes Safety Concerns: Feels Safe At This Time Assistive Devices: Cane Physical Exam Physical Exam: GENERAL: This is a pleasant 58 year old female in no acute distress. Sitting co mfortably in the recliner with her legs elevated. HEAD/FACE: Normocephalic and atraumatic. EYES: No drainage or conjunctival injection. ENT: Nose without bleeding or discharge. Oral mucosa moist. NECK: Full ROM without apparent pain. No swelling or masses noted. RESPIRATORY: Patient with unlabored breathing. No signs of respiratory distress. CHEST/AXILLA: Chest movement symmetrical. No deformities noted. ABDOMEN/GI: No distension BACK: Moves without difficulty SKIN: Mccrory, warm and dry. No rash noted. MS/EXTREMITY: No swelling, no deformities. Moving extremities appropriately. NEURO: Alert and appears oriented. Speech is fluent. Cranial Nerves are grossly intact. PSYCH: Alert, pleasant, affect is calm Results (Pain Clinic) Diagnostic Review CT Findings: CT SCAN OF THE ABDOMEN AND PELVIS WITH IV CONTRAST CLINICAL HISTORY: Urinary tract infection. Back pain. COMPARISON STUDY: Abdominal CT dated 05/15/2021. TECHNIQUE: Following the IV administration of 93 cc of Optiray 320, CT scan of the abdomen and pelvis is performed from the lung bases to the proximal femora. Images are reviewed in the axial, sagittal, and coronal planes. IV contrast was administered without complication. A dose lowering technique was utilized adhering to the principles of ALARA. CT DOSE: 1342.8 mGy.cm FINDINGS: Lung bases: The heart is normal in size and without pericardial effusion. There are coronary artery calcifications. The lung bases are clear. Liver: The contrast-enhanced liver is normal in size, contour, and attenuation. There is no intrahepatic biliary ductal dilatation. The hepatic veins and portal veins are patent. Gallbladder: The gallbladder is distended but otherwise normal in appearance.. Spleen: The spleen is mildly enlarged measuring 13.5 cm in length. There are numerous low attenuation splenic mass lesions. These measure up to 4.8 cm. Pancreas: Unremarkable. Adrenal glands: Unremarkable. Kidneys: The contrast enhanced kidneys are normal in size and without hydronephrosis. The kidneys enhance symmetrically. Abdominal vasculature: The abdominal aorta is normal in course and caliber noting mild to moderate atherosclerotic calcification. Bowel: There is moderate to severe constipation. No bowel obstruction is seen. The appendix is not visualized. Peritoneum: There is no intraperitoneal free air or abdominal ascites. There is evidence of previous ventral hernia repairs. A residual fat-containing hernia is seen in the left ventral pelvis. Lymphadenopathy: There are mildly enlarged retroperitoneal lymph nodes. An aortocaval node on image #136 measures 2.2 x 1.2 cm. A right iliac chain node on image #245 measures 1.9 x 1.6 cm. There is confluent lymphadenopathy along the right external iliac chain extending into the groin. This encases the iliac vessels and measures approximately 8 x 3.5 cm as seen on image #288. There are likely enlarged right groin nodes. The lesion on image #29 measures 2.6 cm. Pelvic viscera: There is an air-fluid level within the bladder. The bladder is otherwise normal as imaged. The uterus and adnexa are normal as visualized. There is marked masslike expansion of the right gluteus medius muscles which extends into the right obturator foramen. There may also be involvement of the proximal right rectus femoris muscle. A 2.7 cm lesion is seen in the left gluteus minimus muscle on image #210. Skeletal structures: The skeletal structures are heterogeneously osteopenic. There is mild lumbosacral spondylosis. There is a chronic superior endplate compression deformity of L3. Metastatic bony involvement is suspected throughout the bony structures. Sclerotic change is noted in the sacroiliac joints and p ubic symphysis. IMPRESSION: 1. There is marked masslike expansion of the right gluteus medius muscle extending into the right job press operator foramen. There is also mass involving the right rectus femoris muscle and the left gluteus minimus. Additionally, the spleen is mildly enlarged with several splenic masses. There are also enlarged retroperitoneal lymph nodes, as well as right iliac chain lymphadenopathy extending into tube the right groin. This constellation of findings is highly suggestive of a neoplastic process such as lymphoma. Tissue sampling will likely be required for further assessment. 2. The skeletal structures are significantly heterogeneous suggesting metastatic bone involvement. 3. There is an air-fluid level within the bladder, possibly related to instrumentation. Correlate with clinical findings and urinalysis. 4. Coronary artery atherosclerosis. 5. Moderate to severe constipation. 6. Additional findings as above. ACT 112: Positive. There are findings on this exam that require communication between the performing entity and the patient following Patient Test Result Information Act ([place] Act 112) guidelines. Electronically signed by: Igor Mccall M.D. 08/05/2023 2:53 PM
--- NOTE | 2023-08-12 14:00 | Hospitalist Progress Note ---
Date of Service August 12, 2023 Assessment & Plan (1) Mass of buttock: Plan: Suspected lymphoma/metastatic disease Right gluteal mass Splenomegaly with retroperitoneal lymphadenopathy Leukopenia, normocytic anemia -CT abd/pelvis:There is marked masslike expansion of the right gluteus medius muscle extending into the right concrete buster operator foramen. There is also mass involving the right rectus femoris muscle and the left gluteus minimus. Additionally, the spleen is mildly enlarged with several splenic masses. There are also enlarged retroperitoneal lymph nodes, as well as right iliac chain lymphadenopathy extending into tube the right groin. This constellation of findings is highly suggestive of a neoplastic process such as lymphoma. --CT Chest: Lymphadenopathy is seen in the left axilla and right greater than left wesley. Findings are suspicious for neoplastic process such as lymphoma. --MRI Brain: No acute abnormality and in particular no evidence of metastatic disease. --Lumbar CT: Degenerative changes without evidence of acute bony injury. -- Peripheral smear: No overt changes of neoplastic process or hemolytic anemia Appreciate oncology Input - Pain control PT OT as able Had lymph node biopsy on 08/09/2023, bone biopsy on 08/10/2023 with pathology pending Gen surg consulted today for consideration of excisional biopsy - feel R retroperitoneal nodes are too deep. Recommend awaiting pending pathology, discussed with IR, who obtained more tissue from axilla the evening of 08/10 Pathology pending Discussed with Dr. Archibald of oncology - okay to discharge from their perspective while awaiting path. Scheduled for followup in clinic next week Working to optimize pain control for R gluteal mass. Increasing fentanyl patch to 25mcg, requiring IV Dilaudid PRN and oxycodone PRN for severe breakthrough pain with some improvement Consulted pain mgmt for recommendations for pain control with return home UTI Urine culture ESBL E. coli Empirically on Rocephin>> ertapenem on 08/07/2023 Continue current management Plan to transition to p.o. antibiotics on discharge Hypomagnesemia Replete electrolytes as needed Monitor Constipation Continue bowel regimen HTN HLD Continue home medications Monitor GERD Continue PPI Hypothyroidism: Elevated TSH, normal free T4 Continue levothyroxine 150 mcg daily Depression: Continue citalopram DVT Px: Lovenox SQ CODE STATUS Full code Patient seen in collaboration with Dr. Curiel. Please see addendum. I spent a total of 45 minutes coordinating, documenting, and providing care for this patient excluding time spent in the performance of separately billed services. Admission and Anticipated Discharge Date Admission Date: August 05, 2023 Supervising Physician Co-Signing Physician Notes Patient seen and examined by me, care coordinated w/ Chava Kim PA-C, pls refer to her note above for further detail. I agree and take responsibility for the plan. Pt had lymph node biopsy done last evening. Seen by pain management today to help manage pain as currently uncontrolled. Continue ertapenem for UTI. Needs follow-up with oncology on discharge. Currently sitting up in chair, surrounded by family, in NAD. Describes her pain in right lower extremity/gluteal area. No fevers chills chest pain shortness of breath or abdominal pain. Lungs are clear to auscultation, heart sounds regular abdomen soft nontender. MD Moisés Subjective Seen and examined in 381 bed 1 in follow-up for gluteal mass. Continues to have pain in right hip radiating buttocks that feels better with increased fentanyl patch dose. Still using IV dilaudid overnight for worsening pain around 0300. Care being coordinated with oncology and general surgery. Denies any other new complaints overnight. No fever, chills, lightheadedness, chest pain, shortness of breath, nausea, vomiting, abdominal pain, dysuria, diarrhea or constipation. Having normal bowel movements. Review of Systems Review of Systems: At least ten systems reviewed and negative except as noted in the HPI. Physical Exam Physical Exam: Gen: WD/WN, NAD, sitting in bedside chair, obese, A&Ox3 HEENT: Normocephalic, atraumatic, conjunctivae moist, sclerae anicteric, mucous membranes moist Lung: Clear to Auscultation bilaterally, no wheezes/rales/rhonchi Heart: Regular rate, regular rhythm, no murmurs, rubs, or gallops Abdomen: Soft, NT, ND +BS x 4 Extremities: + R hip mildly palpable mass , no edema Skin: Warm, no rash Results & Data Results & Data Vital Signs (Past 12 Hours) Vital Signs Temp Pulse Resp BP Pulse Ox O2 Del Method 08/12/23 07:52 36.8 C 77 16 138/82 93 Room Air Laboratory Results Short CBC 08/12/23 Range/Units 06:32 WBC 2.86 L (4.8-10.8) K/ul Hgb 9.9 L (12.0-16.0) g/dl Hct 31.1 L (37.0-47.0) % Plt Count 217 (130-400) K/uL [facility] 08/12/23 06:32 Sodium 134 L Potassium 3.9 Chloride 99 Carbon Dioxide 28 BUN 19 Creatinine 0.55 L Glucose 102 H Calcium 8.9 Diagnostic Findings Lumbar Spine CT 08/05/23 11:42 CT lumbar spine wo con CLINICAL HISTORY: low back pain, right sided TECHNIQUE: Multidetector row helical CT of the lumbar spine was performed without administration of intravenous contrast. Coronal and sagittal reformations were obtained. Automated dose lowering techniques and/or adjustment according to patient size were utilized for this exam. CT DOSE: 1062.24 mGy.cm Comparison: Comparison is made to CT abdomen pelvis 07/16/2020 FINDINGS: For counting purposes, the last complete intervertebral disc space is considered L5-S1. No acute fractures are identified. Prominent osteophyte formation and mild loss of height of the L3 vertebral body is unchanged from prior exam. Vertebral body alignment is within normal limits. Surrounding soft tissues are unremarkable. IMPRESSION: Degenerative changes without evidence of acute bony injury. ACT 112: Negative or not required by law. Electronically signed by: Rishi Mckeon M.D. 08/05/2023 12:37 PM Abdomen/Pelvis CT 08/05/23 12:52 CT SCAN OF THE ABDOMEN AND PELVIS WITH IV CONTRAST CLINICAL HISTORY: Urinary tract infection. Back pain. COMPARISON STUDY: Abdominal CT dated 05/15/2021. TECHNIQUE: Following the IV administration of 93 cc of Optiray 320, CT scan of the abdomen and pelvis is performed from the lung bases to the proximal femora. Images are reviewed in the axial, sagittal, and coronal planes. IV contrast was administered without complication. A dose lowering technique was utilized adhering to the principles of ALARA. CT DOSE: 1342.8 mGy.cm FINDINGS: Lung bases: The heart is normal in size and without pericardial effusion. There are coronary artery calcifications. The lung bases are clear. Liver: The contrast-enhanced liver is normal in size, contour, and attenuation. There is no intrahepatic biliary ductal dilatation. The hepatic veins and portal veins are patent. Gallbladder: The gallbladder is distended but otherwise normal in appearance.. Spleen: The spleen is mildly enlarged measuring 13.5 cm in length. There are numerous low attenuation splenic mass lesions. These measure up to 4.8 cm. Pancreas: Unremarkable. Adrenal glands: Unremarkable. Kidneys: The contrast enhanced kidneys are normal in size and without hydronephrosis. The kidneys enhance symmetrically. Abdominal vasculature: The abdominal aorta is normal in course and caliber noting mild to moderate atherosclerotic calcification. Bowel: There is moderate to severe constipation. No bowel obstruction is seen. The appendix is not visualized. Peritoneum: There is no intraperitoneal free air or abdominal ascites. There is evidence of previous ventral hernia repairs. A residual fat-containing hernia is seen in the left ventral pelvis. Lymphadenopathy: There are mildly enlarged retroperitoneal lymph nodes. An aortocaval node on image #136 measures 2.2 x 1.2 cm. A right iliac chain node on image #245 measures 1.9 x 1.6 cm. There is confluent lymphadenopathy along the right external iliac chain extending into the groin. This encases the iliac vessels and measures approximately 8 x 3.5 cm as seen on image #288. There are likely enlarged right groin nodes. The lesion on image #29 measures 2.6 cm. Pelvic viscera: There is an air-fluid level within the bladder. The bladder is otherwise normal as imaged. The uterus and adnexa are normal as visualized. There is marked masslike expansion of the right gluteus medius muscles which extends into the right obturator foramen. There may also be involvement of the proximal right rectus femoris muscle. A 2.7 cm lesion is seen in the left gluteus minimus muscle on image #210. Skeletal structures: The skeletal structures are heterogeneously osteopenic. There is mild lumbosacral spondylosis. There is a chronic superior endplate compression deformity of L3. Metastatic bony involvement is suspected throughout the bony structures. Sclerotic change is noted in the sacroiliac joints and pubic symphysis. IMPRESSION: 1. There is marked masslike expansion of the right gluteus medius muscle extending into the right concrete buster operator foramen. There is also mass involving the right rectus femoris muscle and the left gluteus minimus. Additionally, the spleen is mildly enlarged with several splenic masses. There are also enlarged retroperitoneal lymph nodes, as well as right iliac chain lymphadenopathy extending into tube the right groin. This constellation of findings is highly suggestive of a neoplastic process such as lymphoma. Tissue sampling will likely be required for further assessment. 2. The skeletal structures are significantly heterogeneous suggesting metastatic bone involvement. 3. There is an air-fluid level within the bladder, possibly related to instrumentation. Correlate with clinical findings and urinalysis. 4. Coronary artery atherosclerosis. 5. Moderate to severe constipation. 6. Additional findings as above. ACT 112: Positive. There are findings on this exam that require communication between the performing entity and the patient following Patient Test Result Information Act ([place] Act 112) guidelines. Electronically signed by: Igor Mccall M.D. 08/05/2023 2:53 PM Brain MRI 08/05/23 17:10 MR brain wo/w con CLINICAL HISTORY: Eval for metastasis TECHNIQUE: Multiplanar and multisequence MR images of the brain were obtained prior to and following administration of gadolinium contrast. Comparison: None available at the time of this dictation. FINDINGS: No abnormal restricted diffusion is identified. The white matter is unremarkable. The ventricular system is normal in appearance. No mass or abnormal enhancement is seen. There is no mass effect or midline shift. There is no evidence of acute intraparenchymal hemorrhage. No extra axial fluid collections are seen. The corpus callosum, pituitary gland, and cerebellar tonsils appear grossly unremarkable. Flow voids of the major intracranial arterial vessels are identified. The imaged portions of the paranasal sinuses, mastoid air cells, and orbits are unremarkable. IMPRESSION: No acute abnormality and in particular no evidence of metastatic disease. ACT 112: Negative or not required by law. Electronically signed by: Rishi Mckeon M.D. 08/05/2023 6:[address] 08/05/23 17:10 CT chest diagnostic wo/w con CLINICAL HISTORY: Eval for metastasis TECHNIQUE: Multidetector row helical CT of the chest was performed without and with intravenous contrast. Coronal and sagittal reformations were obtained. Automated dose lowering techniques and/or adjustment according to patient size were utilized for this exam. CT DOSE: 1565.74 mGy.cm Comparison: Comparison is made to rib series 08/15/[address] abdomen pelvis 08/05/2023 FINDINGS: Lungs and pleura: Minimal atelectatic changes are seen. There are a few additional nodules are seen on the left. There is a 3 mm nodule in the lingula (image 110). Heart and pericardium: Heart size is normal. No pericardial effusion. Vessels: Moderate atherosclerotic changes in the aorta and coronary arteries. Mediastinum and wesley: Multiple enlarged lymph nodes are seen measuring up to 23 mm in the right hilum and 10 mm in the left hilum. Chest wall and lower neck: Left axillary nodes measure up to 12 mm. Subcentimeter lymph nodes are seen in the right axilla. Abdomen: For findings below the diaphragm, please refer to CT of the abdomen dated the same. Bones: Degenerative changes in the thoracic spine. IMPRESSION: 1. Lymphadenopathy is seen in the left axilla and right greater than left wesley. Findings are suspicious for neoplastic process such as lymphoma. 2. Patulous and fluid-filled esophagus, correlation for achalasia is recommended. ACT 112: Positive. There are findings on this exam that require communication between the performing entity and the patient following Patient Test Result Information Act ([place] Act 112) guidelines. Electronically signed by: Rishi Mckeon M.D. 08/05/2023 6:28 PM Biopsy Ultrasound 08/08/23 07:00 Ultrasound-guided right groin mass core biopsy INDICATION: Right iliac chain lymphadenopathy extending into the right groin PROCEDURE: Procedure and risks were explained. Informed consent was obtained. A final timeout was completed. The right groin was prepped and draped in sterile fashion. 1% buffered lidocaine was utilized for skin anesthesia. The patient received 25 mcg fentanyl IV. Utilizing ultrasound guidance, an 18-gauge core biopsy needle was advanced into the right groin mass. Ultrasound images were obtained. 4 cores were obtained and given to the pathologist for review. The needle was removed and Band-Aid applied. The patient tolerated the procedure well. Vital signs will be monitored postprocedure. IMPRESSION: Right groin mass core biopsy as detailed above. Performed, dictated, and signed by Alexys Pickett PA-C; to be co-signed by Dr. Gael Ha. Electronically signed by: Gael Ha M.D. 08/08/2023 2:59 PM Lymph Node Biopsy Ultrasound 08/11/23 12:24 ULTRASOUND-GUIDED LEFT AXILLARY LYMPH NODE CORE BIOPSY CLINICAL HISTORY: Abnormal left axillary lymph node PROCEDURE: Procedure and risks were explained. Informed consent was obtained. A final timeout was completed. The left axilla was prepped and draped in sterile fashion. 1% buffered lidocaine was utilized for skin anesthesia. The patient received 100 mcg fentanyl IV. Utilizing ultrasound guidance, an 18-gauge core biopsy needle was advanced into the left axillary lymph node. Ultrasound images were obtained. 4 cores were obtained and given to the pathologist for review. The patient tolerated the procedure well. IMPRESSION: Ultrasound-guided left axillary lymph node core biopsy as above. Performed, dictated, and signed by Alexys Pickett PA-C; to be co-signed by Dr. Gael Ha. Electronically signed by: Gael Ha M.D. 08/11/2023 3:35 PM
[2023-08-12] MEDS: GABAPENTIN 300 MG CAP PO SCH (21:14)
[2023-08-13] MEDS: oxyCODONE HCL IR 5 MG TAB (IMMEDIATE RELEASE) PO PRN (05:58)
[2023-08-13 07:29] LABS: Hematocrit (blood only) 30.3 % (37.0-47.0); Mean Corpuscular Hemoglobin 29.6 pg (25.0-34.0); Mean Corpuscular Volume 89.6 fL (80.0-100.0); Mean Platelet Volume 8.9 fL (9.4-12.4); Nucleated RBC # (auto) 0.02 K/uL (0.00-0.12); Nucleated RBC % (auto) 0.8 %; Platelet Count 232 K/uL (130-400); RDW Coefficient of Variation 15.8 % (11.5-14.5); Red Blood Count 3.38 M/uL (4.20-5.40); White Blood Count 2.66 K/ul (4.8-10.8)
[2023-08-13 07:51] LABS: Creatinine Clr Calc Pharmacy 134.2 ml/min; Est GFR (African American) 125.4 ml/min; Est GFR (Non-African American) 108.2 ml/min
--- NOTE | 2023-08-13 18:49 | Hospitalist Progress Note ---
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 There is also mass involving the right rectus femoris muscle and the left gluteus minimus. Additionally, the spleen is mildly enlarged with several splenic masses. There are also enlarged retroperitoneal lymph nodes, as well as right iliac chain lymphadenopathy extending into tube the right groin. This constellation of findings is highly suggestive of a neoplastic process such as lymphoma. --CT Chest: Lymphadenopathy is seen in the left axilla and right greater than left wesley. Findings are suspicious for neoplastic process such as lymphoma. --MRI Brain: No acute abnormality and in particular no evidence of metastatic disease. --Lumbar CT: Degenerative changes without evidence of acute bony injury. -- Peripheral smear: No overt changes of neoplastic process or hemolytic anemia Appreciate oncology Input - Pain control PT OT as able Had lymph node biopsy on 08/09/2023, bone biopsy on 08/10/2023 with pathology pending Gen surg consulted today for consideration of excisional biopsy - feel R retroperitoneal nodes are too deep. Recommend awaiting pending pathology, discussed with IR, who obtained more tissue from axilla the evening of 08/10 Pathology pending Discussed with Dr. Archibald of oncology - okay to discharge from their perspective while awaiting path. Scheduled for followup in clinic next week Working to optimize pain control for R gluteal mass. Increasing fentanyl patch to 25mcg, requiring IV Dilaudid PRN and oxycodone PRN for severe breakthrough pain with some improvement Consulted pain mgmt for recommendations for pain control with return home - added gabapentin 300 HS UTI Urine culture ESBL E. coli Empirically on Rocephin>> ertapenem on 08/07/2023 Continue current management Plan to transition to p.o. antibiotics on discharge Hypomagnesemia Replete electrolytes as needed Monitor Constipation Continue bowel regimen HTN HLD Continue home medications Monitor GERD Continue PPI Hypothyroidism: Elevated TSH, normal free T4 Continue levothyroxine 150 mcg daily Depression: Continue citalopram DVT Px:Lovenox SQ CODE STATUS Full code Admission and Anticipated Discharge Date Admission Date: August 05, 2023 Subjective Seen in follow up gluteal mass. Continues to have pain in right hip radiating buttocks. No fevers chills chest pain shortness of breath no abdominal pain. Discussed bowel regimen. Review of Systems Review of Systems: All systems reviewed & are unremarkable except as noted in Subjective Physical Exam Physical Exam: Gen: WD/WN, in NAD HEENT: Normocephalic, atraumatic, conjunctivae moist, sclerae anicteric, mucous membranes moist Lung: Clear to Auscultation bilaterally, no wheezes/rales/rhonchi Heart: Regular rate, regular rhythm, no murmurs, rubs, or gallops Abdomen: Soft, NT, ND +BS x 4 Extremities: + R hip mildly palpable mass , no edema Skin: Warm, no rash Results & Data Results & Data Vital Signs (Past 12 Hours) Vital Signs Temp Pulse Resp BP BP Pulse Ox O2 Del Method 08/13/23 14:41 36.5 C 85 20 143/90 H 94 Room Air 08/13/23 07:53 36.7 C 83 16 113/74 94 Room Air Laboratory Results 08/13/23 08/13/23 08/13/23 Range/Units 16:33 11:34 07:53 WBC (4.8-10.8) K/ul RBC (4.20-5.40) M/uL Hgb (12.0-16.0) g/dl Hct (37.0-47.0) % MCV (80.0-100.0) fL MCH (25.0-34.0) pg MCHC (32.0-36.0) g/dL RDW Std Deviation (36.4-46.3) fL RDW Coeff of Lisset (11.5-14.5) % Plt Count (130-400) K/uL MPV (9.4-12.4) fL Absolute Nucleated RBC (0.00-0.12) K/uL Nucleated RBC % (auto) % Sodium (136-145) mmol/L Potassium (3.5-5.1) mmol/L Chloride (98-107) mmol/L Carbon Dioxide (21-32) mmol/L Anion Gap (3-11) BUN (6-23) mg/dl Creatinine (0.6-1.2) mg/dl Est Cr Clr Drug Dosing ml/min Est GFR ( Amer) ml/min Est GFR (Non-Af Amer) ml/min BUN/Creatinine Ratio (10-20) Glucose (70-99(Fasting)) mg/dl POC Glucose 131 H 177 H 100 H (70-99) mg/dl Calcium (8.6-10.3) mg/dl 08/13/23 08/12/23 Range/Units 06:41 20:01 WBC 2.66 L (4.8-10.8) K/ul RBC 3.38 L (4.20-5.40) M/uL Hgb 10.0 L (12.0-16.0) g/dl Hct 30.3 L (37.0-47.0) % MCV 89.6 (80.0-100.0) fL MCH 29.6 (25.0-34.0) pg MCHC 33.0 (32.0-36.0) g/dL RDW Std Deviation 51.0 H (36.4-46.3) fL RDW Coeff of Lisset 15.8 H (11.5-14.5) % Plt Count 232 (130-400) K/uL MPV 8.9 L (9.4-12.4) fL Absolute Nucleated RBC 0.02 (0.00-0.12) K/uL Nucleated RBC % (auto) 0.8 % Sodium 136 (136-145) mmol/L Potassium 4.0 (3.5-5.1) mmol/L Chloride 101 (98-107) mmol/L Carbon Dioxide 29 (21-32) mmol/L Anion Gap 6 (3-11) BUN 17 (6-23) mg/dl Creatinine 0.50 L (0.6-1.2) mg/dl Est Cr Clr Drug Dosing 134.2 ml/min Est GFR ( Amer) 125.4 ml/min Est GFR (Non-Af Amer) 108.2 ml/min BUN/Creatinine Ratio 34.0 H (10-20) Glucose 94 (70-99(Fasting)) mg/dl POC Glucose 271 H (70-99) mg/dl Calcium 9.0 (8.6-10.3) mg/dl Medications Administered Current Inpatient Medications Acetaminophen (Acetaminophen 325 Mg Tab) 650 mg PO Q4H PRN PRN Reason: Moderate Pain (Scale 4, 5, 6) Stop: 09/04/23 18:49 Last Admin: 08/13/23 16:11 Dose: 650 mg Aspirin (Aspirin 81 Mg Ectab) 81 mg PO QAM [facility] Stop: 09/05/23 08:59 Last Admin: 08/13/23 09:01 Dose: 81 mg Atorvastatin Calcium (Atorvastatin 20 Mg Tab) 20 mg PO PM [facility] Stop: 09/04/23 20:59 Last Admin: 08/12/23 20:06 Dose: 20 mg Bisacodyl (Bisacodyl 10 Mg Supp) 10 mg [place] DAILY PRN PRN Reason: Constipation Stop: 09/04/23 17:09 Bisacodyl (Bisacodyl 10 Mg Supp) 10 mg [place] DAILY PRN PRN Reason: Constipation Stop: 09/07/23 13:58 Citalopram Hydrobromide (Citalopram 20 Mg Tab) 20 mg PO DAILY [facility] Stop: 09/05/23 08:59 Last Admin: 08/13/23 09:02 Dose: 20 mg Dextrose (Dextrose 50% 50 Ml Syringe) 25 - 50 ml IV UD PRN; Protocol PRN Reason: Hypoglycemia Protocol Stop: 09/04/23 18:49 Enoxaparin Sodium (Enoxaparin Inj 40 Mg/0.4 Ml Syr) 40 mg SQ QAM [facility] Stop: 09/05/23 08:59 Last Admin: 08/13/23 09:02 Dose: 40 mg Fentanyl (Fentanyl 25 Mcg/Hr Tdsy) 25 mcg TD Q3D [facility] Stop: 08/25/23 12:29 Last Admin: 08/11/23 12:49 Dose: 25 mcg Gabapentin (Gabapentin 100 Mg Cap) 100 mg PO QAM [facility] Stop: 09/04/23 11:44 Last Admin: 08/13/23 09:01 Dose: 100 mg Gabapentin (Gabapentin 300 Mg Cap) 300 mg PO HS [facility] Stop: 09/11/23 20:59 Last Admin: 08/12/23 21:14 Dose: 300 mg Glucagon (Glucagon For Inj 1 Mg Vial) 1 mg SQ UD PRN; Protocol PRN Reason: Hypoglycemia Protocol Stop: 09/04/23 18:49 Glucose (Glucose 10 Tab/Tube) 4 - 8 tab PO UD PRN; Protocol PRN Reason: Hypoglycemia Treatment Stop: 09/04/23 18:49 Glucose (Glucose 40% Gel 15 Gm Tube) 15 - 30 gm PO UD PRN; Protocol PRN Reason: Hypoglycemia Protocol Stop: 09/04/23 18:49 Hydromorphone HCl (Hydromorphone Inj 0.5 Mg/0.5 Ml Syr) 0.5 mg IV Q3H PRN PRN Reason: Severe Pain (Scale 7, 8, 9,10) Stop: 08/24/23 23:16 Last Admin: 08/13/23 16:10 Dose: 0.5 mg Ertapenem 1,000 mg/ Syringe 10 mls @ 2 mls/min IV Q24H [facility]; Protocol Stop: 08/17/23 10:29 Last Admin: 08/13/23 11:56 Dose: 2 mls/min Insulin Aspart (Insulin Aspart Per Unit Charge) 0 units SC ACHS [facility] Stop: 09/04/23 20:59 Last Admin: 08/13/23 17:56 Dose: 3 units Insulin Glargine (Lantus Per Unit Charge) 30 units SQ QPM [facility] Stop: 09/04/23 20:59 Last Admin: 08/12/23 21:04 Dose: 30 units Levothyroxine Sodium (Levothyroxine Sodium 150 Mcg Tablet) 150 mcg PO DAILYBB [facility] Stop: 09/05/23 06:29 Last Admin: 08/13/23 05:50 Dose: 150 mcg Lisinopril (Lisinopril 10 Mg Tab) 10 mg PO QAM [facility] Stop: 09/05/23 08:59 Last Admin: 08/08/23 08:33 Dose: Not Given Magnesium Chloride (Magnesium Chloride W/Calcium 64mg Delayed Rel Tab) 64 mg PO BID [facility] Stop: 09/05/23 20:59 Last Admin: 08/13/23 08:40 Dose: 64 mg Miscellaneous (Remove Lidoderm Patch) 1 each N/A DAILY@2100 [facility] Stop: 09/04/23 20:59 Last Admin: 08/12/23 20:06 Dose: 1 each Miscellaneous (Carbohydrates For Hypoglycemia ) 15 - 30 gm PO UD PRN PRN Reason: Hypoglycemia Protocol Stop: 09/04/23 18:49 Miscellaneous (Check Fentanyl Patch Placement) 1 each N/A QS [facility] Stop: 09/10/23 15:59 Last Admin: 08/13/23 16:11 Dose: 1 each Miscellaneous (Fentanyl Patch Remove & Waste) 1 each N/A Q3D [facility] Stop: 09/10/23 12:29 Last Admin: 08/11/23 12:48 Dose: 1 each Ondansetron HCl (Ondansetron Inj 2 Mg/Ml 2 Ml Vial) 4 mg IV Q4H PRN PRN Reason: Nausea And Vomiting Stop: 09/04/23 18:49 Last Admin: 08/08/23 05:20 Dose: 4 mg Oxybutynin Chloride (Oxybutynin Chloride 5 Mg Tab) 5 mg PO AMHS JOHN Stop: 09/04/23 20:59 Last Admin: 08/13/23 08:41 Dose: 5 mg Oxycodone HCl (Oxycodone Hcl Ir 5 Mg Tab (Immediate Release)) 10 mg PO Q6H PRN PRN Reason: Pain Stop: 08/22/23 01:22 Last Admin: 08/13/23 18:02 Dose: 10 mg Pantoprazole Sodium (Pantoprazole 40 Mg Tab) 40 mg PO DAILYBB [facility] Stop: 09/05/23 06:29 Last Admin: 08/13/23 05:50 Dose: 40 mg Polyethylene Glycol (Polyethylene (Miralax) 17 Gm Pack) 17 gm PO DAILY [facility] Stop: 09/04/23 17:29 Last Admin: 08/13/23 08:59 Dose: 17 gm Senna/Docusate Sodium (Docusate Sodium/Senna 50/8.6mg Tab) 1 tab PO BID [facility] Stop: 09/07/23 23:44 Last Admin: 08/13/23 08:40 Dose: 1 tab Tizanidine HCl (Tizanidine Hcl 4 Mg Tablet) 2 mg PO TID PRN PRN Reason: spasm Stop: 09/07/23 08:59 Last Admin: 08/13/23 08:38 Dose: 2 mg Trolamine Salicylate (Trolamine Salicylate 10% Crm 255 Appln/85 Gm Tube) 1 appln EXT TID PRN PRN Reason: hip pain Stop: 09/09/23 04:37 Last Admin: 08/12/23 22:32 Dose: 1 appln Zinc Acetate/Diphenhydramine (Diphenhydramine 2%/Zinc 0.1% Cream 28.4gm Tube) 1 appln EXT QID PRN PRN Reason: itchy skin Stop: 09/06/23 21:33 Last Admin: 08/08/23 08:36 Dose: 1 appln
--- NOTE | 2023-08-14 17:03 | Hospitalist Progress Note ---
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 There is also mass involving the right rectus femoris muscle and the left gluteus minimus. Additionally, the spleen is mildly enlarged with several splenic masses. There are also enlarged retroperitoneal lymph nodes, as well as right iliac chain lymphadenopathy extending into tube the right groin. This constellation of findings is highly suggestive of a neoplastic process such as lymphoma. --CT Chest: Lymphadenopathy is seen in the left axilla and right greater than left wesley. Findings are suspicious for neoplastic process such as lymphoma. --MRI Brain: No acute abnormality and in particular no evidence of metastatic disease. --Lumbar CT: Degenerative changes without evidence of acute bony injury. -- Peripheral smear: No overt changes of neoplastic process or hemolytic anemia Appreciate oncology Input - Pain control PT OT as able Had lymph node biopsy on 08/09/2023, bone biopsy on 08/10/2023 with pathology pending Gen surg consulted for consideration of excisional biopsy - feel R retroperitoneal nodes are too deep. Recommend awaiting pending pathology, discussed with IR, who obtained more tissue from axilla the evening of 08/10 Pathology pending Discussed with Dr. Archibald of oncology - okay to discharge from their perspective while awaiting path. Scheduled for followup in clinic next week Working to optimize pain control for R gluteal mass. Increasing fentanyl patch to 25mcg, requiring IV Dilaudid PRN and oxycodone PRN for severe breakthrough pain with some improvement Consulted pain mgmt for recommendations for pain control with return home - added gabapentin 300 HS UTI Urine culture ESBL E. coli Empirically on Rocephin>> ertapenem on 08/07/2023 Continue current management Plan to transition to p.o. antibiotics on discharge Hypomagnesemia Replete electrolytes as needed Monitor Constipation Continue bowel regimen HTN HLD Continue home medications Monitor GERD Continue PPI Hypothyroidism: Elevated TSH, normal free T4 Continue levothyroxine 150 mcg daily Depression: Continue citalopram DVT Px:Lovenox SQ CODE STATUS Full code Admission and Anticipated Discharge Date Admission Date: August 05, 2023 Subjective Seen in follow up gluteal mass. Continues to have pain in right hip radiating buttocks. No fevers chills chest pain shortness of breath no abdominal pain. Discussed bowel regimen. she would like relistor, discussed w/ pharm Review of Systems Review of Systems: All systems reviewed & are unremarkable except as noted in Subjective Physical Exam Physical Exam: Gen: WD/WN, in NAD HEENT: Normocephalic, atraumatic, conjunctivae moist, sclerae anicteric, mucous membranes moist Lung: Clear to Auscultation bilaterally, no wheezes/rales/rhonchi Heart: Regular rate, regular rhythm, no murmurs, rubs, or gallops Abdomen: Soft, NT, ND +BS x 4 Extremities: + R hip mildly palpable mass , no edema Skin: Warm, no rash Results & Data Results & Data Vital Signs (Past 12 Hours) Vital Signs Temp Pulse Resp BP Pulse Ox O2 Del Method 08/14/23 14:15 36.8 C 82 16 114/72 96 Room Air 08/14/23 07:24 36.7 C 77 18 113/76 94 Room Air Laboratory Results 08/14/23 08/14/23 08/14/23 Range/Units 16:36 11:58 07:26 POC Glucose 126 H 107 H 101 H (70-99) mg/dl 08/13/23 Range/Units 20:09 POC Glucose 168 H (70-99) mg/dl Medications Administered Current Inpatient Medications Acetaminophen (Acetaminophen 325 Mg Tab) 650 mg PO Q4H PRN PRN Reason: Moderate Pain (Scale 4, 5, 6) Stop: 09/04/23 18:49 Last Admin: 08/14/23 12:00 Dose: 650 mg Aspirin (Aspirin 81 Mg Ectab) 81 mg PO QAM [facility] Stop: 09/05/23 08:59 Last Admin: 08/14/23 09:02 Dose: 81 mg Atorvastatin Calcium (Atorvastatin 20 Mg Tab) 20 mg PO PM [facility] Stop: 09/04/23 20:59 Last Admin: 08/13/23 20:13 Dose: 20 mg Bisacodyl (Bisacodyl 10 Mg Supp) 10 mg [place] DAILY PRN PRN Reason: Constipation Stop: 09/04/23 17:09 Bisacodyl (Bisacodyl 10 Mg Supp) 10 mg IA DAILY PRN PRN Reason: Constipation Stop: 09/07/23 13:58 Citalopram Hydrobromide (Citalopram 20 Mg Tab) 20 mg PO DAILY [facility] Stop: 09/05/23 08:59 Last Admin: 08/14/23 09:02 Dose: 20 mg Dextrose (Dextrose 50% 50 Ml Syringe) 25 - 50 ml IV UD PRN; Protocol PRN Reason: Hypoglycemia Protocol Stop: 09/04/23 18:49 Enoxaparin Sodium (Enoxaparin Inj 40 Mg/0.4 Ml Syr) 40 mg SQ QAM [facility] Stop: 09/05/23 08:59 Last Admin: 08/14/23 09:02 Dose: 40 mg Fentanyl (Fentanyl 25 Mcg/Hr Tdsy) 25 mcg TD Q3D [facility] Stop: 08/25/23 12:29 Last Admin: 08/14/23 12:35 Dose: 25 mcg Gabapentin (Gabapentin 100 Mg Cap) 100 mg PO QAM [facility] Stop: 09/04/23 11:44 Last Admin: 08/14/23 09:02 Dose: 100 mg Gabapentin (Gabapentin 300 Mg Cap) 300 mg PO HS [facility] Stop: 09/11/23 20:59 Last Admin: 08/13/23 20:13 Dose: 300 mg Glucagon (Glucagon For Inj 1 Mg Vial) 1 mg SQ UD PRN; Protocol PRN Reason: Hypoglycemia Protocol Stop: 09/04/23 18:49 Glucose (Glucose 10 Tab/Tube) 4 - 8 tab PO UD PRN; Protocol PRN Reason: Hypoglycemia Treatment Stop: 09/04/23 18:49 Glucose (Glucose 40% Gel 15 Gm Tube) 15 - 30 gm PO UD PRN; Protocol PRN Reason: Hypoglycemia Protocol Stop: 09/04/23 18:49 Hydromorphone HCl (Hydromorphone Inj 0.5 Mg/0.5 Ml Syr) 0.5 mg IV Q3H PRN PRN Reason: Severe Pain (Scale 7, 8, 9,10) Stop: 08/24/23 23:16 Last Admin: 08/14/23 05:29 Dose: 0.5 mg Ertapenem 1,000 mg/ Syringe 10 mls @ 2 mls/min IV Q24H [facility]; Protocol Stop: 08/17/23 10:29 Last Admin: 08/14/23 10:43 Dose: 2 mls/min Insulin Aspart (Insulin Aspart Per Unit Charge) [facility] Stop: 09/04/23 20:59 Last Admin: 08/14/23 12:35 Dose: 3 units Insulin Glargine (Lantus Per Unit Charge) 30 units SQ QPM [facility] Stop: 09/04/23 20:59 Last Admin: 08/13/23 20:52 Dose: 30 units Levothyroxine Sodium (Levothyroxine Sodium 150 Mcg Tablet) 150 mcg PO DAILYBB [facility] Stop: 09/05/23 06:29 Last Admin: 08/14/23 05:31 Dose: 150 mcg Lisinopril (Lisinopril 10 Mg Tab) 10 mg PO QAM [facility] Stop: 09/05/23 08:59 Last Admin: 08/08/23 08:33 Dose: Not Given Magnesium Chloride (Magnesium Chloride W/Calcium 64mg Delayed Rel Tab) 64 mg PO BID [facility] Stop: 09/05/23 20:59 Last Admin: 08/14/23 09:01 Dose: 64 mg Miscellaneous (Remove Lidoderm Patch) 1 each N/A DAILY@2100 [facility] Stop: 09/04/23 20:59 Last Admin: 08/13/23 20:14 Dose: 1 each Miscellaneous (Carbohydrates For Hypoglycemia ) 15 - 30 gm PO UD PRN PRN Reason: Hypoglycemia Protocol Stop: 09/04/23 18:49 Miscellaneous (Check Fentanyl Patch Placement) 1 each N/A QS [facility] Stop: 09/10/23 15:59 Last Admin: 08/14/23 16:32 Dose: 1 each Miscellaneous (Fentanyl Patch Remove & Waste) 1 each N/A Q3D [facility] Stop: 09/10/23 12:29 Last Admin: 08/14/23 12:37 Dose: 1 each Ondansetron HCl (Ondansetron Inj 2 Mg/Ml 2 Ml Vial) 4 mg IV Q4H PRN PRN Reason: Nausea And Vomiting Stop: 09/04/23 18:49 Last Admin: 08/08/23 05:20 Dose: 4 mg Oxybutynin Chloride (Oxybutynin Chloride 5 Mg Tab) 5 mg PO AMHS [facility] Stop: 09/04/23 20:59 Last Admin: 08/14/23 09:01 Dose: 5 mg Oxycodone HCl (Oxycodone Hcl Ir 5 Mg Tab (Immediate Release)) 10 mg PO Q6H PRN PRN Reason: Pain Stop: 08/22/23 01:22 Last Admin: 08/14/23 15:34 Dose: 10 mg Pantoprazole Sodium (Pantoprazole 40 Mg Tab) 40 mg PO DAILYBB JOHN Stop: 09/05/23 06:29 Last Admin: 08/14/23 05:31 Dose: 40 mg Polyethylene Glycol (Polyethylene (Miralax) 17 Gm Pack) 17 gm PO DAILY JOHN Stop: 09/04/23 17:29 Last Admin: 08/14/23 09:02 Dose: 17 gm Senna/Docusate Sodium (Docusate Sodium/Senna 50/8.6mg Tab) 1 tab PO BID [facility] Stop: 09/07/23 23:44 Last Admin: 08/14/23 09:01 Dose: 1 tab Tizanidine HCl (Tizanidine Hcl 4 Mg Tablet) 2 mg PO TID PRN PRN Reason: spasm Stop: 09/07/23 08:59 Last Admin: 08/14/23 04:14 Dose: 2 mg Trolamine Salicylate (Trolamine Salicylate 10% Crm 255 Appln/85 Gm Tube) 1 appln EXT TID PRN PRN Reason: hip pain Stop: 09/09/23 04:37 Last Admin: 08/14/23 08:59 Dose: 1 appln Zinc Acetate/Diphenhydramine (Diphenhydramine 2%/Zinc 0.1% Cream 28.4gm Tube) 1 appln EXT QID PRN PRN Reason: itchy skin Stop: 09/06/23 21:33 Last Admin: 08/08/23 08:36 Dose: 1 appln
[2023-08-14] MEDS: METHYLNALTREXONE BROMIDE 12 MG/0.6 ML VIAL SQ ONE (17:13)
[2023-08-15 07:23] LABS: Hematocrit (blood only) 29.3 % (37.0-47.0); Hemoglobin 9.7 g/dl (12.0-16.0); Mean Corpuscular Hemoglobin 29.8 pg (25.0-34.0); Mean Corpuscular Hgb Conc 33.1 g/dL (32.0-36.0); Mean Corpuscular Volume 89.9 fL (80.0-100.0); Mean Platelet Volume 8.7 fL (9.4-12.4); Nucleated RBC # (auto) 0.04 K/uL (0.00-0.12); Nucleated RBC % (auto) 1.6 %; Platelet Count 220 K/uL (130-400); RDW Coefficient of Variation 15.6 % (11.5-14.5); RDW Standard Deviation 50.8 fL (36.4-46.3); Red Blood Count 3.26 M/uL (4.20-5.40); White Blood Count 2.57 K/ul (4.8-10.8)
[2023-08-15 07:45] LABS: BUN Creatinine Ratio 41.7 (10-20); Calcium 8.5 mg/dl (8.6-10.3); Creatinine Clr Calc Pharmacy 139.7 ml/min; Est GFR (African American) 127.1 ml/min; Est GFR (Non-African American) 109.7 ml/min; Magnesium 1.5 mg/dl (1.7-2.4); Potassium 3.9 mmol/L (3.5-5.1)
--- NOTE | 2023-08-15 09:16 | Hospitalist Progress Note ---
Date of Service August 15, 2023 Assessment & Plan (1) Mass of buttock: Plan: Suspected lymphoma/metastatic disease Right gluteal mass Splenomegaly with retroperitoneal lymphadenopathy Leukopenia, normocytic anemia -CT abd/pelvis:There is marked masslike expansion of the right gluteus medius muscle extending into the right primer inserting machine operator foramen. There is also mass involving the right rectus femoris muscle and the left gluteus minimus. Additionally, the spleen is mildly enlarged with several splenic masses. There are also enlarged retroperitoneal lymph nodes, as well as right iliac chain lymphadenopathy extending into tube the right groin. This constellation of findings is highly suggestive of a neoplastic process such as lymphoma. --CT Chest: Lymphadenopathy is seen in the left axilla and right greater than left wesley. Findings are suspicious for neoplastic process such as lymphoma. --MRI Brain: No acute abnormality and in particular no evidence of metastatic disease. --Lumbar CT: Degenerative changes without evidence of acute bony injury. -- Peripheral smear: No overt changes of neoplastic process or hemolytic anemia Appreciate oncology Input - Pain control PT OT as able Had lymph node biopsy on 08/09/2023, bone biopsy on 08/10/2023 with pathology pending Gen surg consulted for consideration of excisional biopsy - feel R retroperitoneal nodes are too deep. Recommend awaiting pending pathology, discussed with IR, who obtained more tissue from axilla the evening of 08/10 Pathology pending Discussed with Dr. Archibald of oncology - okay to discharge from their perspective while awaiting path. Scheduled for followup in clinic next week Working to optimize pain control for R gluteal mass. Increasing fentanyl patch to 25mcg, requiring IV Dilaudid PRN and oxycodone PRN for severe breakthrough pain with some improvement Consulted pain mgmt for recommendations for pain control with return home - added gabapentin 300 HS 08/14 per pain management - gabapentin 300 am, oxycodone frequency increased to q4 h prn, Fentanyl increased to 50, tizanidine 2 TID UTI Urine culture ESBL E. coli Empirically on Rocephin>> ertapenem on 08/07/2023 Continue current management Plan to transition to p.o. antibiotics on discharge Hypomagnesemia Replete electrolytes as needed Monitor Constipation Continue bowel regimen HTN HLD Continue home medications Monitor GERD Continue PPI Hypothyroidism: Elevated TSH, normal free T4 Continue levothyroxine 150 mcg daily Depression: Continue citalopram DVT Px:Lovenox SQ CODE STATUS Full code Admission and Anticipated Discharge Date Admission Date: August 05, 2023 Subjective Seen in follow up gluteal mass. Continues to have pain in right hip radiating buttocks. No fevers chills chest pain shortness of breath no abdominal pain. Discussed bowel regimen. received relistor yesterday, had BM today Reports having another difficult night. Seen by pain management - medications further adjusted. Review of Systems Review of Systems: All systems reviewed & are unremarkable except as noted in Subjective Physical Exam Physical Exam: Gen: WD/WN, in NAD HEENT: Normocephalic, atraumatic, conjunctivae moist, sclerae anicteric, mucous membranes moist Lung: Clear to Auscultation bilaterally, no wheezes/rales/rhonchi Heart: Regular rate, regular rhythm, no murmurs, rubs, or gallops Abdomen: Soft, NT, ND +BS x 4 Extremities: + R hip mildly palpable mass , no edema Skin: Warm, no rash Results & Data Results & Data Vital Signs (Past 12 Hours) Vital Signs Temp Pulse Pulse Resp BP Pulse Ox O2 Del Method 08/15/23 07:47 36.6 C 75 16 107/71 92 Room Air 08/14/23 21:34 86 Laboratory Results 08/15/23 08/15/23 08/14/23 Range/Units 07:45 06:58 20:54 WBC 2.57 L (4.8-10.8) K/ul RBC 3.26 L (4.20-5.40) M/uL Hgb 9.7 L (12.0-16.0) g/dl Hct 29.3 L (37.0-47.0) % MCV 89.9 (80.0-100.0) fL MCH 29.8 (25.0-34.0) pg MCHC 33.1 (32.0-36.0) g/dL RDW Std Deviation 50.8 H (36.4-46.3) fL RDW Coeff of Lisset 15.6 H (11.5-14.5) % Plt Count 220 (130-400) K/uL MPV 8.7 L (9.4-12.4) fL Absolute Nucleated RBC 0.04 (0.00-0.12) K/uL Nucleated RBC % (auto) 1.6 % Sodium 137 (136-145) mmol/L Potassium 3.9 (3.5-5.1) mmol/L Chloride 104 (98-107) mmol/L Carbon Dioxide 27 (21-32) mmol/L Anion Gap 6 (3-11) BUN 20 (6-23) mg/dl Creatinine 0.48 L (0.6-1.2) mg/dl Est Cr Clr Drug Dosing 139.7 ml/min Est GFR ( Amer) 127.1 ml/min Est GFR (Non-Af Amer) 109.7 ml/min BUN/Creatinine Ratio 41.7 H (10-20) Glucose 122 H (70-99(Fasting)) mg/dl POC Glucose 135 H 180 H (70-99) mg/dl Calcium 8.5 L (8.6-10.3) mg/dl Magnesium 1.5 L (1.7-2.4) mg/dl 08/14/23 08/14/23 Range/Units 16:36 11:58 WBC (4.8-10.8) K/ul RBC (4.20-5.40) M/uL Hgb (12.0-16.0) g/dl Hct (37.0-47.0) % MCV (80.0-100.0) fL MCH (25.0-34.0) pg MCHC (32.0-36.0) g/dL RDW Std Deviation (36.4-46.3) fL RDW Coeff of Lisset (11.5-14.5) % Plt Count (130-400) K/uL MPV (9.4-12.4) fL Absolute Nucleated RBC (0.00-0.12) K/uL Nucleated RBC % (auto) % Sodium (136-145) mmol/L Potassium (3.5-5.1) mmol/L Chloride (98-107) mmol/L Carbon Dioxide (21-32) mmol/L Anion Gap (3-11) BUN (6-23) mg/dl Creatinine (0.6-1.2) mg/dl Est Cr Clr Drug Dosing ml/min Est GFR ( Amer) ml/min Est GFR (Non-Af Amer) ml/min BUN/Creatinine Ratio (10-20) Glucose (70-99(Fasting)) mg/dl POC Glucose 126 H 107 H (70-99) mg/dl Calcium (8.6-10.3) mg/dl Magnesium (1.7-2.4) mg/dl Medications Administered Current Inpatient Medications Acetaminophen (Acetaminophen 325 Mg Tab) 650 mg PO Q4H PRN PRN Reason: Moderate Pain (Scale 4, 5, 6) Stop: 09/04/23 18:49 Last Admin: 08/15/23 08:21 Dose: 650 mg Aspirin (Aspirin 81 Mg Ectab) 81 mg PO QAM [facility] Stop: 09/05/23 08:59 Last Admin: 08/15/23 08:23 Dose: 81 mg Atorvastatin Calcium (Atorvastatin 20 Mg Tab) 20 mg PO PM [facility] Stop: 09/04/23 20:59 Last Admin: 08/14/23 20:32 Dose: 20 mg Bisacodyl (Bisacodyl 10 Mg Supp) 10 mg [place] DAILY PRN PRN Reason: Constipation Stop: 09/04/23 17:09 Bisacodyl (Bisacodyl 10 Mg Supp) 10 mg [place] DAILY PRN PRN Reason: Constipation Stop: 09/07/23 13:58 Citalopram Hydrobromide (Citalopram 20 Mg Tab) 20 mg PO DAILY [facility] Stop: 09/05/23 08:59 Last Admin: 08/15/23 08:23 Dose: 20 mg Dextrose (Dextrose 50% 50 Ml Syringe) 25 - 50 ml IV UD PRN; Protocol PRN Reason: Hypoglycemia Protocol Stop: 09/04/23 18:49 Enoxaparin Sodium (Enoxaparin Inj 40 Mg/0.4 Ml Syr) 40 mg SQ QAM [facility] Stop: 09/05/23 08:59 Last Admin: 08/15/23 08:23 Dose: 40 mg Fentanyl (Fentanyl 50 Mcg/Hr Tdsy) 50 mcg TD Q3D@0900 [facility] Stop: 08/29/23 09:14 Gabapentin (Gabapentin 300 Mg Cap) 300 mg PO HS [facility] Stop: 09/11/23 20:59 Last Admin: 08/14/23 20:32 Dose: 300 mg Gabapentin (Gabapentin 300 Mg Cap) 300 mg PO QAM [facility] Stop: 09/15/23 08:59 Glucagon (Glucagon For Inj 1 Mg Vial) 1 mg SQ UD PRN; Protocol PRN Reason: Hypoglycemia Protocol Stop: 09/04/23 18:49 Glucose (Glucose 10 Tab/Tube) 4 - 8 tab PO UD PRN; Protocol PRN Reason: Hypoglycemia Treatment Stop: 09/04/23 18:49 Glucose (Glucose 40% Gel 15 Gm Tube) 15 - 30 gm PO UD PRN; Protocol PRN Reason: Hypoglycemia Protocol Stop: 09/04/23 18:49 Hydromorphone HCl (Hydromorphone Inj 0.5 Mg/0.5 Ml Syr) 0.5 mg IV Q3H PRN PRN Reason: Severe Pain (Scale 7, 8, 9,10) Stop: 08/24/23 23:16 Last Admin: 08/15/23 08:37 Dose: 0.5 mg Ertapenem 1,000 mg/ Syringe 10 mls @ 2 mls/min IV Q24H [facility]; Protocol Stop: 08/17/23 10:29 Last Admin: 08/14/23 10:43 Dose: 2 mls/min Magnesium Sulfate/Dextrose (Magnesium Sulfate / D5w) 1 gm in 100 mls @ 50 mls/hr IV ONE ONE Stop: 08/15/23 11:09 Insulin Aspart (Insulin Aspart Per Unit Charge) 0 units SC ACHS [facility] Stop: 09/04/23 20:59 Last Admin: 08/15/23 08:36 Dose: 4 units Insulin Glargine (Lantus Per Unit Charge) 30 units SQ QPM [facility] Stop: 09/04/23 20:59 Last Admin: 08/14/23 21:10 Dose: 30 units Levothyroxine Sodium (Levothyroxine Sodium 150 Mcg Tablet) 150 mcg PO DAILYBB [facility] Stop: 09/05/23 06:29 Last Admin: 08/15/23 06:09 Dose: 150 mcg Lisinopril (Lisinopril 10 Mg Tab) 10 mg PO QAM [facility] Stop: 09/05/23 08:59 Last Admin: 08/08/23 08:33 Dose: Not Given Magnesium Chloride (Magnesium Chloride W/Calcium 64mg Delayed Rel Tab) 64 mg PO BID [facility] Stop: 09/05/23 20:59 Last Admin: 08/15/23 08:22 Dose: 64 mg Magnesium Citrate (Magnesium Citrate 296 Ml/Btl) 148 ml PO TODAY@0915 [facility] Stop: 08/15/23 09:16 Methylnaltrexone Cochran (Methylnaltrexone Cochran 12 Mg/0.6 Ml Vial) 12 mg SQ Q2D [facility] Stop: 09/15/23 06:59 Miscellaneous (Remove Lidoderm Patch) 1 each N/A DAILY@2100 [facility] Stop: 09/04/23 20:59 Last Admin: 08/14/23 20:32 Dose: 1 each Miscellaneous (Carbohydrates For Hypoglycemia ) 15 - 30 gm PO UD PRN PRN Reason: Hypoglycemia Protocol Stop: 09/04/23 18:49 Miscellaneous (Check Fentanyl Patch Placement) 1 each N/A QS [facility] Stop: 09/10/23 15:59 Last Admin: 08/15/23 08:27 Dose: 1 each Miscellaneous (Fentanyl Patch Remove & Waste) 1 each N/A Q3D [facility] Stop: 09/10/23 12:29 Last Admin: 08/14/23 12:37 Dose: 1 each Miscellaneous (Check Fentanyl Patch Placement) 1 each N/A QS [facility] Stop: 09/14/23 15:59 Miscellaneous (Fentanyl Patch Remove & Waste) 1 each N/A Q3D@0859 [facility] Stop: 09/17/23 08:58 Ondansetron HCl (Ondansetron Inj 2 Mg/Ml 2 Ml Vial) 4 mg IV Q4H PRN PRN Reason: Nausea And Vomiting Stop: 09/04/23 18:49 Last Admin: 08/08/23 05:20 Dose: 4 mg Oxybutynin Chloride (Oxybutynin Chloride 5 Mg Tab) 5 mg PO AMHS [facility] Stop: 09/04/23 20:59 Last Admin: 08/15/23 08:22 Dose: 5 mg Oxycodone HCl (Oxycodone Hcl Ir 5 Mg Tab (Immediate Release)) 10 mg PO Q4H PRN PRN Reason: Pain Stop: 08/26/23 23:10 Pantoprazole Sodium (Pantoprazole 40 Mg Tab) 40 mg PO DAILYBB [facility] Stop: 09/05/23 06:29 Last Admin: 08/15/23 06:09 Dose: 40 mg Polyethylene Glycol (Polyethylene (Miralax) 17 Gm Pack) 17 gm PO DAILY [facility] Stop: 09/04/23 17:29 Last Admin: 08/15/23 08:37 Dose: 17 gm Senna/Docusate Sodium (Docusate Sodium/Senna 50/8.6mg Tab) 1 tab PO BID [facility] Stop: 09/07/23 23:44 Last Admin: 08/15/23 08:23 Dose: 1 tab Tizanidine HCl (Tizanidine Hcl 4 Mg Tablet) 2 mg PO TID [facility] Stop: 09/14/23 13:59 Trolamine Salicylate (Trolamine Salicylate 10% Crm 255 Appln/85 Gm Tube) 1 appln EXT TID PRN PRN Reason: hip pain Stop: 09/09/23 04:37 Last Admin: 08/15/23 08:21 Dose: 1 appln Zinc Acetate/Diphenhydramine (Diphenhydramine 2%/Zinc 0.1% Cream 28.4gm Tube) 1 appln EXT QID PRN PRN Reason: itchy skin Stop: 09/06/23 21:33 Last Admin: 08/08/23 08:36 Dose: 1 appln
[2023-08-15] MEDS: MAGNESIUM SULFATE / D5W 1 GM/100 ML BAG IV ONE (10:25)
[2023-08-15] MEDS: MAGNESIUM CITRATE 296 ML/BTL PO SCH (10:25)
[2023-08-15] MEDS: fentaNYL 50 MCG/HR TDSY TD SCH (10:25)
[2023-08-15] MEDS: oxyCODONE HCL IR 5 MG TAB (IMMEDIATE RELEASE) PO PRN (12:37)
[2023-08-15] MEDS: tiZANidine HCL 4 MG TABLET PO SCH (14:03)
[2023-08-15] MEDS: CHECK fentaNYL PATCH PLACEMENT SCH (15:13)
--- NOTE | 2023-08-15 17:27 | Pain Management Progress Note ---
Date of Service August 15, 2023 Assessment & Plan (1) Mass of buttock: (2) Lymphadenopathy: (3) Splenic mass: (4) Back pain: Plan 1. Recommend increasing gabapentin to 300 mg p.o. daily twice daily. 2. Recommend increasing fentanyl to 50 mcg every 72 hours. Recommend utilizing oxycodone 10 mg p.o. every 4 as needed with IV Dilaudid backup. We discussed utilization of long-acting and short acting opiates and how these work together to minimize fluctuations in pain control. Would recommend home dose of Narcan available at discharge. Discussed with patient that well oral hydromorphone is an option, it's duration of action is only approximately 3 hours and therefore less beneficial to her in comparison to oxycodone at this time. 3. Recommend magnesium citrate today with scheduled Relistor starting tomorrow every 2 days. We discussed need for bowel movement at least every 3 days. 4. Recommend scheduled utilization of tizanidine. May utilize baclofen if this fails to provide benefit. 5. Consider conversion from Celexa to Cymbalta in the future to augment descend ing pain regulatory pathways. This was not specifically discussed with the patient at today's visit but can be considered for future visits. 6. Will follow-up with her tomorrow morning. Admission and Anticipated Discharge Date Admission Date: August 05, 2023 Subjective 58-year-old female with a right gluteal mass currently awaiting pathology reports but concerning for possible lymphoma. She reports pain ranges between 8-10 out of 10 and has characterized it as cramping sharp stabbing shooting predominantly over her right buttock but down her posterior lateral thigh to the level of the superior gastroc and superiorly to her lumbosacral junction. She reports modest benefit from fentanyl 25 mcg every 72 hours and has utilized 40 mg of oxycodone over the last 24 hours. She is regularly using IV Dilaudid in addition for breakthrough pain. She denies any significant benefit from increasing her gabapentin to 300 mg p.o. nightly. She denies bowel or bladder incontinence, motor weakness, fever, chills. She admits to significant constipation and has not moved her bowels since 08/10/2023. She had a dose of Relistor yesterday without benefit. She reports significant passage of flatus but no true bowel movement. She denies mental sedation or cognitive deficits secondary to opiate use. She reports significant issues with anxiety surrounding her current medical condition. Current usage of Celexa for depression. Physical Exam Physical Exam: GENERAL: This is a pleasant 58 year old female in no acute distress. Sitting comfortably in her hospital bed with her legs elevated. HEAD/FACE: Normocephalic and atraumatic. EYES: No drainage or conjunctival injection. ENT: Nose without bleeding or discharge. Oral mucosa moist. NECK: Full ROM without apparent pain. No swelling or masses noted. RESPIRATORY: Patient with unlabored breathing. No signs of respiratory distress. CHEST/AXILLA: Chest movement symmetrical. No deformities noted. ABDOMEN/GI: No distension BACK:Able to log roll with some difficulty secondary to pain. SKIN: [place], warm and dry. No rash noted. MS/EXTREMITY: No swelling, no deformities. Moves RLE with reluctance. Notable palpable mass right hip/buttock NEURO: Alert and appears oriented. Speech is fluent. Cranial Nerves are grossly intact. PSYCH: Alert, pleasant, affect is calm Results (Pain Clinic) Diagnostic Review CT Findings: CT SCAN OF THE ABDOMEN AND PELVIS WITH IV CONTRAST CLINICAL HISTORY: Urinary tract infection. Back pain. COMPARISON STUDY: Abdominal CT dated 05/15/2021. TECHNIQUE: Following the IV administration of 93 cc of Optiray 320, CT scan of the abdomen and pelvis is performed from the lung bases to the proximal femora. Images are reviewed in the axial, sagittal, and coronal planes. IV contrast was administered without complication. A dose lowering technique was utilized adhering to the principles of ALARA. CT DOSE: 1342.8 mGy.cm FINDINGS: Lung bases: The heart is normal in size and without pericardial effusion. There are coronary artery calcifications. The lung bases are clear. Liver: The contrast-enhanced liver is normal in size, contour, and attenuation. There is no intrahepatic biliary ductal dilatation. The hepatic veins and portal veins are patent. Gallbladder: The gallbladder is distended but otherwise normal in appearance.. Spleen: The spleen is mildly enlarged measuring 13.5 cm in length. There are numerous low attenuation splenic mass lesions. These measure up to 4.8 cm. Pancreas: Unremarkable. Adrenal glands: Unremarkable. Kidneys: The contrast enhanced kidneys are normal in size and without hydronephrosis. The kidneys enhance symmetrically. Abdominal vasculature: The abdominal aorta is normal in course and caliber noting mild to moderate atherosclerotic calcification. Bowel: There is moderate to severe constipation. No bowel obstruction is seen. The appendix is not visualized. Peritoneum: There is no intraperitoneal free air or abdominal ascites. There is evidence of previous ventral hernia repairs. A residual fat-containing hernia is seen in the left ventral pelvis. Lymphadenopathy: There are mildly enlarged retroperitoneal lymph nodes. An aortocaval node on image #136 measures 2.2 x 1.2 cm. A right iliac chain node on image #245 measures 1.9 x 1.6 cm. There is confluent lymphadenopathy along the right external iliac chain extending into the groin. This encases the iliac vessels and measures approximately 8 x 3.5 cm as seen on image #288. There are likely enlarged right groin nodes. The lesion on image #29 measures 2.6 cm. Pelvic viscera: There is an air-fluid level within the bladder. The bladder is otherwise normal as imaged. The uterus and adnexa are normal as visualized. There is marked masslike expansion of the right gluteus medius muscles which extends into the right obturator foramen. There may also be involvement of the proximal right rectus femoris muscle. A 2.7 cm lesion is seen in the left gluteus minimus muscle on image #210. Skeletal structures: The skeletal structures are heterogeneously osteopenic. There is mild lumbosacral spondylosis. There is a chronic superior endplate compression deformity of L3. Metastatic bony involvement is suspected throughout the bony structures. Sclerotic change is noted in the sacroiliac joints and pubic symphysis. IMPRESSION: 1. There is marked masslike expansion of the right gluteus medius muscle extending into the right glove operator foramen. There is also mass involving the right rectus femoris muscle and the left gluteus minimus. Additionally, the spleen is mildly enlarged with several splenic masses. There are also enlarged retroperitoneal lymph nodes, as well as right iliac chain lymphadenopathy extending into tube the right groin. This constellation of findings is highly suggestive of a neoplastic process such as lymphoma. Tissue sampling will likely be required for further assessment. 2. The skeletal structures are significantly heterogeneous suggesting metastatic bone involvement. 3. There is an air-fluid level within the bladder, possibly related to instrumentation. Correlate with clinical findings and urinalysis. 4. Coronary artery atherosclerosis. 5. Moderate to severe constipation. 6. Additional findings as above. 3/8/24 CT lumbar spine wo con CLINICAL HISTORY: low back pain, right sided TECHNIQUE: Multidetector row helical CT of the lumbar spine was performed without administration of intravenous contrast. Coronal and sagittal reformations were obtained. Automated dose lowering techniques and/or adjustment according to patient size were utilized for this exam. CT DOSE: 1062.24 mGy.cm Comparison: Comparison is made to CT abdomen pelvis 07/16/2020 FINDINGS: For counting purposes, the last complete intervertebral disc space is considered L5-S1. No acute fractures are identified. Prominent osteophyte formation and mild loss of height of the L3 vertebral body is unchanged from prior exam. Vertebral body alignment is within normal limits. Surrounding soft tissues are unremarkable. IMPRESSION: Degenerative changes without evidence of acute bony injury.
[2023-08-16] MEDS: METHYLNALTREXONE BROMIDE 12 MG/0.6 ML VIAL SQ SCH (06:04)
[2023-08-16 07:44] LABS: Hematocrit (blood only) 34.6 % (37.0-47.0); Hemoglobin 10.9 g/dl (12.0-16.0); Mean Corpuscular Hemoglobin 29.1 pg (25.0-34.0); Mean Corpuscular Hgb Conc 31.5 g/dL (32.0-36.0); Mean Corpuscular Volume 92.5 fL (80.0-100.0); Mean Platelet Volume 8.9 fL (9.4-12.4); Nucleated RBC # (auto) 0.02 K/uL (0.00-0.12); Nucleated RBC % (auto) 0.7 %; Platelet Count 233 K/uL (130-400); RDW Standard Deviation 53.6 fL (36.4-46.3); Red Blood Count 3.74 M/uL (4.20-5.40); White Blood Count 2.97 K/ul (4.8-10.8)
[2023-08-16] MEDS: GABAPENTIN 300 MG CAP PO SCH (08:02)
[2023-08-16 08:19] LABS: BUN Creatinine Ratio 38.8 (10-20); Calcium 8.9 mg/dl (8.6-10.3); Creatinine Clr Calc Pharmacy 136.9 ml/min; Est GFR (African American) 126.2 ml/min; Est GFR (Non-African American) 108.9 ml/min; Magnesium 1.7 mg/dl (1.7-2.4); Phosphorus 3.3 mg/dl (2.5-4.9); Potassium 4.3 mmol/L (3.5-5.1)
--- NOTE | 2023-08-16 08:26 | Pain Management Progress Note ---
Date of Service August 16, 2023 Assessment & Plan (1) Mass of buttock: (2) Lymphadenopathy: (3) Splenic mass: (4) Back pain: Back pain location: low back pain Chronicity: unspecified Back pain laterality: bilateral Sciatica presence: with sciatica Sciatica laterality: bilateral sciatica Qualified Code(s): M54.42 - Lumbago with sciatica, left side; M54.41 - Lumbago with sciatica, right side Plan 1. Maintain gabapentin 300 mg p.o. daily twice daily, but consider increase to 3 times daily moving forward 2. Maintain fentanyl at 50 mcg every 72 hours. We discussed expectations regarding benefit and reviewed potential side effects. Patient will continue with oxycodone 10 mg p.o. every 4 as needed with IV Dilaudid backup. Recommend home dose of Narcan available at discharge. 3. Continue with current bowel regimen with magnesium citrate and scheduled Relistor as patient did have bowel movement yesterday. 4. Continue with tizanidine scheduled dosing currently 5. Potentially consider transitioning Celexa to Cymbalta in the future to augment descending pain regulatory pathways. 6. Will initiate Medrol Dosepak due to likely secondary forms of response from tumor burden in the gluteal region contributing to radicular pattern pain complaints. Side effects versus benefits discussed. 7. Will follow-up with patient again tomorrow morning. Admission and Anticipated Discharge Date Admission Date: August 05, 2023 Subjective Mrs. Manuel is a 58-year-old female with a right gluteal mass currently awaiting pathology concerning for possible lymphoma. Patient has a large right gluteal mass and a smaller left gluteal region mass and has ongoing difficulties with pain in the right greater than left gluteal region which can travel in an S1 distribution to the foot. She further describes a bandlike sensation around the feet bilaterally right greater than left-sided. Fentanyl was increased to 50 mcg/72h dosing yesterday. Patient continues with use of Oxy IR and hydromorphone IV for breakthrough pain. She is tolerating this dose adjustment without notable side effects. She does believe her pain control is slightly improved. She reports diminished reliance on breakthrough pain medications. She reports that she had an "good night". She did have bowel movement yesterday. She denies abdominal pain or bloating. Patient rates her pain a 6- 8/10. Her pain remains characterized as cramping, sharp, stabbing and shooting predominantly over her right buttock and traveling down the posterior leg. She describes a sense of intense tightness in the gastrocnemius location. She is tolerating gabapentin titrated to 300 mg twice daily yesterday. She denies bowel or bladder incontinence, motor weakness, fever, chills. She continues to deny mental sedation or cognitive deficits secondary to opiate use. Plan of care discussed with Dr. Martha Britton. Pain Assessment Pain Assessment Full Body Front + Back: 2 1. Right gluteal region 2. Left gluteal region 3. Right S1 distribution pain to the foot 4. Left posterior thigh pain Pain scale - at its best (0-10): 6 Pain scale - at its worst (0-10): 8 Physical Exam 2 Physical Exam: GENERAL: This is a pleasant 58 year old female in no acute distress. Sitting comfortably in her hospital bed with her legs elevated. Patient was witnessed crawling out of bed and walking to the bathroom. ABDOMEN/GI: Soft and nondistended. BACK: Patient is tender over the gluteal region to direct palpation right greater left-sided. There does appear to be appreciable edema of the right gluteal region when compared to the left with notable palpable mass. No focal midline tenderness over the lumbosacral spine. MS/EXTREMITY: No swelling, no deformities. SLR was positive on the right reproducing S1 radicular pattern pain aggravated with dorsiflexion. Sensation is intact distally. Patient is some generalized tenderness to palpation over the midfoot bilaterally. NEURO: Alert and appears oriented. Speech is fluent. Cranial Nerves are grossly intact. PSYCH: Alert, pleasant, affect is calm
[2023-08-16] MEDS ORDERED: methylPREDNISolone 4 MG TAB, 6 DAY TAPER PO SCH (09:00)
--- NOTE | 2023-08-16 09:29 | Hospitalist Progress Note ---
Date of Service August 16, 2023 Assessment & Plan (1) Mass of buttock: Plan: Suspected lymphoma/metastatic disease Right gluteal mass Splenomegaly with retroperitoneal lymphadenopathy Leukopenia, normocytic anemia -CT abd/pelvis:There is marked masslike expansion of the right gluteus medius muscle extending into the right combine operator foramen. There is also mass involving the right rectus femoris muscle and the left gluteus minimus. Additionally, the spleen is mildly enlarged with several splenic masses. There are also enlarged retroperitoneal lymph nodes, as well as right iliac chain lymphadenopathy extending into tube the right groin. This constellation of findings is highly suggestive of a neoplastic process such as lymphoma. --CT Chest: Lymphadenopathy is seen in the left axilla and right greater than left wesley. Findings are suspicious for neoplastic process such as lymphoma. --MRI Brain: No acute abnormality and in particular no evidence of metastatic disease. --Lumbar CT: Degenerative changes without evidence of acute bony injury. -- Peripheral smear: No overt changes of neoplastic process or hemolytic anemia Appreciate oncology Input - Pain control PT OT as able Had lymph node biopsy on 08/09/2023, bone biopsy on 08/10/2023 with pathology pending Gen surg consulted for consideration of excisional biopsy - feel R retroperitoneal nodes are too deep. Recommend awaiting pending pathology, discussed with IR, who obtained more tissue from axilla the evening of 08/10 Pathology pending Discussed with Dr. Archibald of oncology - okay to discharge from their perspective while awaiting path. Scheduled for followup in clinic next week Working to optimize pain control for R gluteal mass. Increasing fentanyl patch to 25mcg, requiring IV Dilaudid PRN and oxycodone PRN for severe breakthrough pain with some improvement Consulted pain mgmt for recommendations for pain control with return home - added gabapentin 300 HS 08/14 per pain management - gabapentin 300 am, oxycodone frequency increased to q4 h prn, Fentanyl increased to 50, tizanidine 2 TID 08/15 Started on Medrol pack by pain management UTI Urine culture ESBL E. coli Empirically on Rocephin>> ertapenem on 08/07/2023 Continue current management Hypomagnesemia Replete electrolytes as needed Monitor Constipation - resolved Continue bowel regimen HTN HLD Continue home medications Monitor GERD Continue PPI Hypothyroidism: Elevated TSH, normal free T4 Continue levothyroxine 150 mcg daily Depression: Continue citalopram DVT Px:Lovenox SQ CODE STATUS Full code Admission and Anticipated Discharge Date Admission Date: August 05, 2023 Subjective Seen in follow up gluteal mass. Continues to have pain in right hip radiating buttocks. No fevers chills chest pain shortness of breath no abdominal pain. Discussed bowel regimen. received relistor, mag citrate - had BM Seen by pain management - medications further adjusted. Started on Medrol pack today Pain seems to be better controlled. Pt reports Dr. Archibald talked to her today and prelim pathology c/w B-cell lymphoma Review of Systems Review of Systems: All systems reviewed & are unremarkable except as noted in Subjective Physical Exam Physical Exam: Gen: WD/WN, in NAD HEENT: Normocephalic, atraumatic, conjunctivae moist, sclerae anicteric, mucous membranes moist Lung: Clear to Auscultation bilaterally, no wheezes/rales/rhonchi Heart: Regular rate, regular rhythm, no murmurs, rubs, or gallops Abdomen: Soft, NT, ND +BS x 4 Extremities: + R hip mildly palpable mass , no edema Skin: Warm, no rash Results & Data Results & Data Vital Signs (Past 12 Hours) Vital Signs Temp Pulse Resp BP BP Pulse Ox O2 Del Method 08/16/23 07:25 36.8 C 87 18 123/77 95 Room Air 08/15/23 22:02 36.9 C 90 17 125/77 95 Room Air Laboratory Results 08/16/23 08/16/23 08/15/23 Range/Units 07:53 07:08 20:23 WBC 2.97 L (4.8-10.8) K/ul RBC 3.74 L (4.20-5.40) M/uL Hgb 10.9 L (12.0-16.0) g/dl Hct 34.6 L (37.0-47.0) % MCV 92.5 (80.0-100.0) fL MCH 29.1 (25.0-34.0) pg MCHC 31.5 L (32.0-36.0) g/dL RDW Std Deviation 53.6 H (36.4-46.3) fL RDW Coeff of Lisset 16.0 H (11.5-14.5) % Plt Count 233 (130-400) K/uL MPV 8.9 L (9.4-12.4) fL Absolute Nucleated RBC 0.02 (0.00-0.12) K/uL Nucleated RBC % (auto) 0.7 % Sodium 134 L (136-145) mmol/L Potassium 4.3 (3.5-5.1) mmol/L Chloride 99 (98-107) mmol/L Carbon Dioxide 27 (21-32) mmol/L Anion Gap 8 (3-11) BUN 19 (6-23) mg/dl Creatinine 0.49 L (0.6-1.2) mg/dl Est Cr Clr Drug Dosing 136.9 ml/min Est GFR ( Amer) 126.2 ml/min Est GFR (Non-Af Amer) 108.9 ml/min BUN/Creatinine Ratio 38.8 H (10-20) Glucose 119 H (70-99(Fasting)) mg/dl POC Glucose 166 H 117 H (70-99) mg/dl Calcium 8.9 (8.6-10.3) mg/dl Phosphorus 3.3 (2.5-4.9) mg/dl Magnesium 1.7 (1.7-2.4) mg/dl Flow Cytometry Comment 08/15/23 08/15/23 08/10/23 Range/Units 16:38 11:31 12:20 WBC (4.8-10.8) K/ul RBC (4.20-5.40) M/uL Hgb (12.0-16.0) g/dl Hct (37.0-47.0) % MCV (80.0-100.0) fL MCH (25.0-34.0) pg MCHC (32.0-36.0) g/dL RDW Std Deviation (36.4-46.3) fL RDW Coeff of Lisset (11.5-14.5) % Plt Count (130-400) K/uL MPV (9.4-12.4) fL Absolute Nucleated RBC (0.00-0.12) K/uL Nucleated RBC % (auto) % Sodium (136-145) mmol/L Potassium (3.5-5.1) mmol/L Chloride (98-107) mmol/L Carbon Dioxide (21-32) mmol/L Anion Gap (3-11) BUN (6-23) mg/dl Creatinine (0.6-1.2) mg/dl Est Cr Clr Drug Dosing ml/min Est GFR ( Amer) ml/min Est GFR (Non-Af Amer) ml/min BUN/Creatinine Ratio (10-20) Glucose (70-99(Fasting)) mg/dl POC Glucose 102 H 181 H (70-99) mg/dl Calcium (8.6-10.3) mg/dl Phosphorus (2.5-4.9) mg/dl Magnesium (1.7-2.4) mg/dl Flow Cytometry Comment See Comment Medications Administered Current Inpatient Medications Acetaminophen (Acetaminophen 325 Mg Tab) 650 mg PO Q4H PRN PRN Reason: Moderate Pain (Scale 4, 5, 6) Stop: 09/04/23 18:49 Last Admin: 08/15/23 20:56 Dose: 650 mg Aspirin (Aspirin 81 Mg Ectab) 81 mg PO QAM [facility] Stop: 09/05/23 08:59 Last Admin: 08/16/23 08:02 Dose: 81 mg Atorvastatin Calcium (Atorvastatin 20 Mg Tab) 20 mg PO PM [facility] Stop: 09/04/23 20:59 Last Admin: 08/15/23 21:02 Dose: 20 mg Bisacodyl (Bisacodyl 10 Mg Supp) 10 mg NC DAILY PRN PRN Reason: Constipation Stop: 09/04/23 17:09 Bisacodyl (Bisacodyl 10 Mg Supp) 10 mg NC DAILY PRN PRN Reason: Constipation Stop: 09/07/23 13:58 Citalopram Hydrobromide (Citalopram 20 Mg Tab) 20 mg PO DAILY [facility] Stop: 09/05/23 08:59 Last Admin: 08/16/23 08:02 Dose: 20 mg Dextrose (Dextrose 50% 50 Ml Syringe) 25 - 50 ml IV UD PRN; Protocol PRN Reason: Hypoglycemia Protocol Stop: 09/04/23 18:49 Enoxaparin Sodium (Enoxaparin Inj 40 Mg/0.4 Ml Syr) 40 mg SQ QAM [facility] Stop: 09/05/23 08:59 Last Admin: 08/16/23 08:02 Dose: 40 mg Fentanyl (Fentanyl 50 Mcg/Hr Tdsy) 50 mcg TD Q3D@0900 [facility] Stop: 08/29/23 09:14 Last Admin: 08/15/23 10:25 Dose: 50 mcg Gabapentin (Gabapentin 300 Mg Cap) 300 mg PO HS [facility] Stop: 09/11/23 20:59 Last Admin: 08/15/23 21:02 Dose: 300 mg Gabapentin (Gabapentin 300 Mg Cap) 300 mg PO QAM [facility] Stop: 09/15/23 08:59 Last Admin: 08/16/23 08:02 Dose: 300 mg Glucagon (Glucagon For Inj 1 Mg Vial) 1 mg SQ UD PRN; Protocol PRN Reason: Hypoglycemia Protocol Stop: 09/04/23 18:49 Glucose (Glucose 10 Tab/Tube) 4 - 8 tab PO UD PRN; Protocol PRN Reason: Hypoglycemia Treatment Stop: 09/04/23 18:49 Glucose (Glucose 40% Gel 15 Gm Tube) 15 - 30 gm PO UD PRN; Protocol PRN Reason: Hypoglycemia Protocol Stop: 09/04/23 18:49 Hydromorphone HCl (Hydromorphone Inj 0.5 Mg/0.5 Ml Syr) 0.5 mg IV Q3H PRN PRN Reason: Severe Pain (Scale 7, 8, 9,10) Stop: 08/24/23 23:16 Last Admin: 08/15/23 23:31 Dose: 0.5 mg Ertapenem 1,000 mg/ Syringe 10 mls @ 2 mls/min IV Q24H [facility]; Protocol Stop: 08/17/23 10:29 Last Admin: 08/15/23 11:06 Dose: 2 mls/min Insulin Aspart (Insulin Aspart Per Unit Charge) 0 units SC ACHS [facility] Stop: 09/04/23 20:59 Last Admin: 08/16/23 08:14 Dose: 4 units Insulin Glargine (Lantus Per Unit Charge) 30 units SQ QPM [facility] Stop: 09/04/23 20:59 Last Admin: 08/15/23 20:55 Dose: 30 units Levothyroxine Sodium (Levothyroxine Sodium 150 Mcg Tablet) 150 mcg PO DAILYBB [facility] Stop: 09/05/23 06:29 Last Admin: 08/16/23 06:04 Dose: 150 mcg Lisinopril (Lisinopril 10 Mg Tab) 10 mg PO QAM [facility] Stop: 09/05/23 08:59 Last Admin: 08/08/23 08:33 Dose: Not Given Magnesium Chloride (Magnesium Chloride W/Calcium 64mg Delayed Rel Tab) 64 mg PO BID [facility] Stop: 09/05/23 20:59 Last Admin: 08/16/23 08:03 Dose: 64 mg Methylnaltrexone [place] (Methylnaltrexone [place] 12 Mg/0.6 Ml Vial) 12 mg SQ Q2D [facility] Stop: 09/15/23 06:59 Last Admin: 08/16/23 06:04 Dose: 12 mg Methylprednisolone (Methylprednisolone 4 Mg Tab) 8 mg PO 0900,2100 [facility] Stop: 08/16/23 21:01 Methylprednisolone (Methylprednisolone 4 Mg Tab) 4 mg PO 1300,1800 [facility] Stop: 08/16/23 18:01 Methylprednisolone (Methylprednisolone 4 Mg Tab) 4 mg PO 0700,1300,1800 [facility] Stop: 08/17/23 18:01 Methylprednisolone (Methylprednisolone 4 Mg Tab) 8 mg PO HS [facility] Stop: 08/17/23 21:01 Methylprednisolone (Methylprednisolone 4 Mg Tab) 4 mg PO 0700,1300,1800,2100 [facility] Stop: 08/18/23 21:01 Methylprednisolone (Methylprednisolone 4 Mg Tab) 4 mg PO 0700,1300,2100 [facility] Stop: 08/19/23 21:01 Methylprednisolone (Methylprednisolone 4 Mg Tab) 4 mg PO 0700,2100 [facility] Stop: 08/20/23 21:01 Methylprednisolone (Methylprednisolone 4 Mg Tab) 4 mg PO 0700 [facility] Stop: 08/21/23 07:01 Miscellaneous (Remove Lidoderm Patch) 1 each N/A DAILY@2100 [facility] Stop: 09/04/23 20:59 Last Admin: 08/15/23 20:57 Dose: Not Given Miscellaneous (Carbohydrates For Hypoglycemia ) 15 - 30 gm PO UD PRN PRN Reason: Hypoglycemia Protocol Stop: 09/04/23 18:49 Miscellaneous (Check Fentanyl Patch Placement) 1 each N/A QS [facility] Stop: 09/14/23 15:59 Last Admin: 08/16/23 08:02 Dose: 1 each Miscellaneous (Fentanyl Patch Remove & Waste) 1 each N/A Q3D@0859 [facility] Stop: 09/14/23 08:58 Last Admin: 08/15/23 10:24 Dose: 1 each Ondansetron HCl (Ondansetron Inj 2 Mg/Ml 2 Ml Vial) 4 mg IV Q4H PRN PRN Reason: Nausea And Vomiting Stop: 09/04/23 18:49 Last Admin: 08/08/23 05:20 Dose: 4 mg Oxybutynin Chloride (Oxybutynin Chloride 5 Mg Tab) 5 mg PO AMHS [facility] Stop: 09/04/23 20:59 Last Admin: 08/15/23 21:02 Dose: 5 mg Oxycodone HCl (Oxycodone Hcl Ir 5 Mg Tab (Immediate Release)) 10 mg PO Q4H PRN PRN Reason: Pain Stop: 08/26/23 23:10 Last Admin: 08/16/23 08:01 Dose: 10 mg Pantoprazole Sodium (Pantoprazole 40 Mg Tab) 40 mg PO DAILYBB [facility] Stop: 09/05/23 06:29 Last Admin: 08/16/23 06:04 Dose: 40 mg Polyethylene Glycol (Polyethylene (Miralax) 17 Gm Pack) 17 gm PO DAILY [facility] Stop: 09/04/23 17:29 Last Admin: 08/16/23 08:01 Dose: 17 gm Senna/Docusate Sodium (Docusate Sodium/Senna 50/8.6mg Tab) 1 tab PO BID [facility] Stop: 09/07/23 23:44 Last Admin: 08/16/23 08:02 Dose: 1 tab Tizanidine HCl (Tizanidine Hcl 4 Mg Tablet) 2 mg PO TID [facility] Stop: 09/14/23 13:59 Last Admin: 08/16/23 08:03 Dose: 2 mg Trolamine Salicylate (Trolamine Salicylate 10% Crm 255 Appln/85 Gm Tube) 1 appln EXT TID PRN PRN Reason: hip pain Stop: 09/09/23 04:37 Last Admin: 08/15/23 08:21 Dose: 1 appln Zinc Acetate/Diphenhydramine (Diphenhydramine 2%/Zinc 0.1% Cream 28.4gm Tube) 1 appln EXT QID PRN PRN Reason: itchy skin Stop: 09/06/23 21:33 Last Admin: 08/16/23 05:47 Dose: 1 appln
[2023-08-16] MEDS: methylPREDNISolone 4 MG TAB PO SCH ×2 (09:37→12:45)
[2023-08-16] MEDS: INSULIN ASPART PER UNIT CHARGE SC SCH (21:06)
[2023-08-16] MEDS: SODIUM CHLORIDE 0.9% 1,000 ML IV ONE (21:14)
[2023-08-17] MEDS: methylPREDNISolone 4 MG TAB PO SCH ×2 (06:05→20:34)
--- NOTE | 2023-08-17 09:06 | Pain Management Progress Note ---
Date of Service August 17, 2023 Assessment & Plan (1) Mass of buttock: (2) Lymphadenopathy: (3) Splenic mass: (4) Back pain: Back pain laterality: bilateral Back pain location: low back pain Chronicity: unspecified Sciatica laterality: bilateral sciatica Sciatica presence: with sciatica Qualified Code(s): M54.42 - Lumbago with sciatica, left side; M54.41 - Lumbago with sciatica, right side (5) Lumbar radicular pain: Plan 1. Maintain gabapentin 300 mg p.o. daily twice daily 2. Maintain fentanyl at 50 mcg every 72 hours. We discussed expectations regarding benefit and reviewed potential side effects. Patient will continue with oxycodone 10 mg p.o. every 4 as needed with IV Dilaudid backup. Would recommend Oxy IR 10 mg every 4 hours as needed upon discharge for breakthrough pain. Recommend home dose of Narcan available at discharge. 3. Continue with current bowel regimen with magnesium citrate and scheduled Relistor as patient has been having daily bowel movements over the past few days . 4. Continue with Medrol Dosepak. Side effects versus benefits discussed. 5. Pain service will sign off on patient at this time. Patient may follow-up in outpatient setting as needed. Admission and Anticipated Discharge Date Admission Date: August 05, 2023 Subjective Mrs. Manuel is a 58-year-old female with a right gluteal mass currently with initial pathology appearing to indicate B-cell lymphoma. Patient has a large right gluteal mass and a smaller left gluteal region mass and has ongoing difficulties with pain in the right greater than left gluteal region which can travel in an S1 distribution to the foot. Patient is reporting significantly improved pain control over the past 12 hours. She indicated some mild "twinges" in the gluteal region around 3 AM and utilize Oxy IR which allowed her to return to sleep. She awoke this morning reporting her pain is a 0/10 sitting up eating breakfast. Her pain continues to range between a 0-6/10. She continues to tolerate fentanyl 50 mcg/72h dosing. Patient continues with use of Oxy IR and hydromorphone IV for breakthrough pain with diminished utilization over the past 12 hours. Patient reports that she has had bowel movements the past 2 days. She denies abdominal pain or bloating. Patient appears to be tolerating gabapentin titrated to 300 mg twice daily 2 days ago. She denies bowel or bladder incontinence, motor weakness, fever, chills. She continues to deny mental sedation or cognitive deficits secondary to opiate use. Patient is awaiting further plan from hematology/oncology. Plan of care discussed with Dr. Martha Britton. Physical Exam Physical Exam: General: Patient sitting up eating breakfast upon entering the room in no acute distress. Speech and thought process appropriate. Mood and affect appropriate. Cognition intact. Neurologic: Cranial nerves grossly intact. Ambulation not witnessed.
[2023-08-17] MEDS ORDERED: PHARMACY GLYCEMIC MGMT CONSULT PRN (09:28)
--- NOTE | 2023-08-17 10:12 | Pharmacy Report ---
Pharmacy Glycemic Short Note 2 - Date of Service August 17, 2023 - Glycemic Short BSG Results (Last 24 hours): 08/16/23 08/16/23 08/16/23 11:48 16:48 20:21 POC Glucose 228 H 177 H 328 H* 08/17/23 08/17/23 00:24 08:11 POC Glucose 308 H* 292 H OUTPATIENT ANTIDIABETIC REGIMEN: * Metformin 1000 mg PO BID * Jardiance 25 mg PO AM * Tresiba 36 units SC AM * Ozempic 1 mg SC every * HbA1c: 7.0% (08/06/23) ASSESSMENT: * 58 yo F admitted on 08/05/23 secondary to lumbar radiculopathy. Pharmacy has been consulted to assist with inpatient glycemic management. Patient is a Type 2 diabetic as an outpatient. Please refer to outpatient regimen and most recent HbA1c above. * Consult received this morning as patient was started on a Medrol Dose Pack yesterday and now having steroid-induced hyperglycemia. BSGs > 300 mg/dL last evening and fasting was 292 mg/dL this AM. Patient had already received 12 units of bolus insulin for morning meal by the time consult was received. * Discussed situation with patient and explained steroids can increase BSGs which means she will need to receive larger insulin doses over the next few days. * Received 30 units of basal last evening. Takes home basal in AM so will give a stressed home dose now x 1 with plan to continue basal dosing in the AM. Basal dose to be reassessed tomorrow. * Bolus regimen will be tightened as well at lunchtime. PLAN FOR INPATIENT GLYCEMIC CONTROL: * Hold outpatient oral diabetes medications * Basal insulin * Lantus 45 units SC x 1 * Reassess in AM * Bolus insulin * NovoLog per scale ACHS or Q6hrs while NPO * Goal Range: Low 110 mg/dL - High 140 mg/dL * Correction Factor: 15 mg/dL/unit * Nutritional / Prandial insulin per carb ratio of 1 unit per 5 grams CHO consumed
[2023-08-17] MEDS: LANTUS PER UNIT CHARGE SQ STA (10:27)
--- NOTE | 2023-08-17 11:11 | Hospitalist Progress Note ---
Date of Service August 17, 2023 Assessment & Plan (1) Mass of buttock: Plan: Lymphoma/metastatic disease Right gluteal mass Splenomegaly with retroperitoneal lymphadenopathy Leukopenia, normocytic anemia -CT abd/pelvis:There is marked masslike expansion of the right gluteus medius muscle extending into the right front elevator operator foramen. There is also mass involving the right rectus femoris muscle and the left gluteus minimus. Additionally, the spleen is mildly enlarged with several splenic masses. There are also enlarged retroperitoneal lymph nodes, as well as right iliac chain lymphadenopathy extending into tube the right groin. This constellation of findings is highly suggestive of a neoplastic process such as lymphoma. --CT Chest: Lymphadenopathy is seen in the left axilla and right greater than left wesley. Findings are suspicious for neoplastic process such as lymphoma. --MRI Brain: No acute abnormality and in particular no evidence of metastatic disease. --Lumbar CT: Degenerative changes without evidence of acute bony injury. -- Peripheral smear: No overt changes of neoplastic process or hemolytic anemia Appreciate oncology Input -needs PET scan, Chemo-Port upon discharge. Plans to be started on chemotherapy Pain control PT OT as able Had lymph node biopsy on 08/09/2023, bone biopsy on 08/10/2023 Gen surg consulted for consideration of excisional biopsy - feel R retroperitoneal nodes are too deep. No surgery recommended currently. Discussed with Dr. Archibald on multiple occasions Appreciate pain management help Started on gabapentin, tizanidine, continue oxycodone Continue Medrol pack Plan to discharge home today UTI Urine culture ESBL E. coli Empirically on Rocephin>> ertapenem Completed IV Ertapenem course Hypomagnesemia Replete electrolytes as needed Monitor Constipation - resolved Continue bowel regimen HTN HLD Continue home medications Monitor GERD Continue PPI Hypothyroidism: Elevated TSH, normal free T4 Continue levothyroxine 150 mcg daily Depression: Continue citalopram DVT Px: Lovenox SQ CODE STATUS Full code Disposition Home Admission and Anticipated Discharge Date Admission Date: August 05, 2023 Subjective Patient is seen and examined at bedside Right hip pain is controlled with medications Denies any chest pain, dyspnea, dizziness, nausea, vomiting, abdominal pain Constipation resolved Discussed with oncology today Plan to discharge home today Review of Systems Review of Systems: All systems reviewed & are unremarkable except as noted in Subjective Physical Exam Physical Exam: Physical Exam: Vitals signs as noted above General Appearance:Obese, no apparent distress Head: normocephalic, Atraumatic Eyes: normal inspection, EOMI Neck: supple, Trachea midline Respiratory/Chest: Normal breath sounds, CTA, No accessory muscle use Cardiovascular: S1, S2, No murmur Abdomen/GI:Soft, Non tender, Bowel sounds present Extremities/Musculoskeletal:normal inspection, no edema, R hip mildly palpable mass Neurologic/Psych:AAOX3, grossly no focal neurological deficits Skin: normal color, warm Results & Data Results & Data Vital Signs (Past 12 Hours) Vital Signs Temp Pulse Resp BP Pulse Ox O2 Del Method 08/17/23 07:55 Room Air 08/17/23 07:17 36.6 C 94 H 18 122/76 95 Room Air
--- NOTE | 2023-08-17 15:15 | Communication Note ---
Date of Service: August 17, 2023 Given elevated blood glucose level secondary to steroids. Patient will be monitored today.
[2023-08-17] MEDS: methylPREDNISolone 4 MG TAB PO ONE (16:20)
[2023-08-17] MEDS ORDERED: methylPREDNISolone 4 MG TAB PO SCH (21:00)
[2023-08-17] MEDS: INSULIN ASPART PER UNIT CHARGE SC SCH (23:54)
[2023-08-18] MEDS: methylPREDNISolone 4 MG TAB PO SCH (06:04)
[2023-08-18] MEDS ORDERED: methylPREDNISolone 4 MG TAB PO SCH (07:00)
[2023-08-18] MEDS: LANTUS PER UNIT CHARGE SQ SCH (08:54)
--- NOTE | 2023-08-18 10:53 | Pharmacy Report ---
Pharmacy Glycemic Short Note 2 - Date of Service August 18, 2023 - Glycemic Short BSG Results (Last 24 hours): 08/17/23 08/17/23 08/17/23 11:52 11:53 14:26 POC Glucose 424 H* 434 H* 269 H 08/17/23 08/17/23 08/17/23 16:54 21:05 23:50 POC Glucose 212 H 174 H 282 H 08/18/23 08/18/23 04:02 07:41 POC Glucose 121 H 82 OUTPATIENT ANTIDIABETIC REGIMEN: * Metformin 1000 mg PO BID * Jardiance 25 mg PO AM * Tresiba 36 units SC AM * Ozempic 1 mg SC every * HbA1c: 7.0% (08/06/23) ASSESSMENT: 08/17 * Patient received total of 117 units of insulin yesterday, of which 45 units were basal insulin * Fasting BSG much improved ~82 mg/dL this AM, continues with medrol dose chandana * Plan to scale back on basal to 30 units this AM, no change to CF/CR 08/16 * 58 yo F admitted on 08/05/23 secondary to lumbar radiculopathy. Pharmacy has been consulted to assist with inpatient glycemic management. Patient is a Type 2 diabetic as an outpatient. Please refer to outpatient regimen and most recent HbA1c above. * Consult received this morning as patient was started on a Medrol Dose Pack yesterday and now having steroid-induced hyperglycemia. BSGs > 300 mg/dL last evening and fasting was 292 mg/dL this AM. Patient had already received 12 units of bolus insulin for morning meal by the time consult was received. * Discussed situation with patient and explained steroids can increase BSGs which means she will need to receive larger insulin doses over the next few days. * Received 30 units of basal last evening. Takes home basal in AM so will give a stressed home dose now x 1 with plan to continue basal dosing in the AM. Basal dose to be reassessed tomorrow. * Bolus regimen will be tightened as well at lunchtime. PLAN FOR INPATIENT GLYCEMIC CONTROL: * Hold outpatient oral diabetes medications * Basal insulin * Lantus 30 units x 1 * Reassess in AM * Bolus insulin * NovoLog per scale ACHS or Q6hrs while NPO * Goal Range: Low 110 mg/dL - High 140 mg/dL * Correction Factor: 15 mg/dL/unit * Nutritional / Prandial insulin per carb ratio of 1 unit per 5 grams CHO consumed
--- NOTE | 2023-08-18 11:10 | Hospitalist Progress Note ---
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 There is also mass involving the right rectus femoris muscle and the left gluteus minimus. Additionally, the spleen is mildly enlarged with several splenic masses. There are also enlarged retroperitoneal lymph nodes, as well as right iliac chain lymphadenopathy extending into tube the right groin. This constellation of findings is highly suggestive of a neoplastic process such as lymphoma. --CT Chest: Lymphadenopathy is seen in the left axilla and right greater than left wesley. Findings are suspicious for neoplastic process such as lymphoma. --MRI Brain: No acute abnormality and in particular no evidence of metastatic disease. --Lumbar CT: Degenerative changes without evidence of acute bony injury. -- Peripheral smear: No overt changes of neoplastic process or hemolytic anemia Appreciate oncology Input -needs PET scan, Chemo-Port upon discharge. Plans to be started on chemotherapy Pain control PT OT as able Had lymph node biopsy on 08/09/2023, bone biopsy on 08/10/2023 Gen surg consulted for consideration of excisional biopsy - feel R retroperitoneal nodes are too deep. No surgery recommended currently. Discussed with Dr. Archibald on multiple occasions Appreciate pain management help Started on gabapentin, tizanidine, continue oxycodone Continue Medrol pack to complete the course Advised to follow-up with PCP, oncology on discharge UTI Urine culture ESBL E. coli Empirically on Rocephin>> ertapenem Completed IV Ertapenem course Hypomagnesemia Replete electrolytes as needed Monitor Constipation - resolved Continue bowel regimen HTN HLD Continue home medications Monitor GERD Continue PPI Hypothyroidism: Elevated TSH, normal free T4 Continue levothyroxine 150 mcg daily Depression: Continue citalopram DVT Px: Lovenox SQ CODE STATUS Full code Disposition Home Admission and Anticipated Discharge Date Admission Date: August 05, 2023 Subjective Patient is seen and examined at bedside Reports having minimal right leg ankle swelling but otherwise no new complaints Right hip pain is controlled Denies any chest pain, dyspnea, dizziness, nausea, vomiting, abdominal pain Blood glucose levels are better today Plan to be discharged home today Review of Systems Review of Systems: All systems reviewed & are unremarkable except as noted in Subjective Physical Exam Physical Exam: Physical Exam: Vitals signs as noted above General Appearance:Obese, no apparent distress Head: normocephalic, Atraumatic Eyes: normal inspection, EOMI Neck: supple, Trachea midline Respiratory/Chest: Normal breath sounds, CTA, No accessory muscle use Cardiovascular: S1, S2, No murmur Abdomen/GI:Soft, Non tender, Bowel sounds present Extremities/Musculoskeletal:normal inspection, no edema, R hip mildly palpable mass Neurologic/Psych:AAOX3, grossly no focal neurological deficits Skin: normal color, warm Results & Data Results & Data Vital Signs (Past 12 Hours) Vital Signs Temp Pulse Resp BP Pulse Ox O2 Del Method 08/18/23 07:37 36.5 C 61 16 112/82 96 Room Air
--- NOTE | 2023-08-18 11:12 | Discharge Summary ---
Date of Service August 18, 2023 Admission HPI Per Admitting Provider This is a 58 yo F with PMhx of recurrent UTI, DM type II, hypothyroidism, HTN, HLD, FELICITY, GERD who presents to the hospital with worsening back pain. Patient underwent workup with CT abdomen pelvis for concerns with recurrent UTI and possible kidney involvement and is found to have new masslike involvement in the right gluteus muscle. Pt reports having had R glute pain leg pain for about 2-3 months. She had previously seen ortho about 3 weeks ago where she had an image of her R hip done but it was negative and was referred to PT. Pt was placed on meloxicam per ortho, but states that this got lost and was taking naproxen instead for pain. She also uses flexeril for extra pain relief. PT states she has numbness and tingling in her lower legs and feet for unknown timeframe. She notices it in her fingers moreso while crochetting. Pt states feels lethargic and weakness all over. Pt reports significant weight loss over the past few years. Denies poor po intake. Pt admits to night sweats but didn't think about it much. Her last menses was 16 years ago, and thought it was menopausal hot flashes. Reports SINGER several days in past few weeks. Denies any urinary symptoms, burning, hematuria. Social Hx: hx of tobacco smoking at age 16, quit 25 years ago. No alcohol use or ilicit drug use. Family Hx: Mother- skin cancer Maternal Aunt: Leukemia Admission Exam Per Admitting Provider General: awake, alert, no apparent distress, appears somnolent but has had multiple pain medications Head: Normocephalic, atraumatic ENT: PERRL, EOMI, no pharyngeal exudate, mucous membranes moist Psych: Normal mood and affect Neuro: AAO x 3, strength intact bilaterally and rated 5/5, no motor deficits, speech is clear, no peripheral sensory deficits Please refer to attending addendum for further PE. Principal Diagnosis Lymphoma ESBL E. coli urinary tract infection Hypomagnesemia Discharge Data Allergies Allergy/AdvReac Type Severity Reaction Status Date / Time adhesive tape Allergy Mild Rash/Itchin Unverified 08/05/23 17:38 ess Consultations 08/05/23 16:28 ED Decision to Admit Stat 08/05/23 16:49 Consult Oncology Routine 08/11/23 10:41 Consult General Surgery Routine 08/12/23 11:01 Consult Pain Management Routine Procedures Performed Laboratory Results WBC 2.97 K/ul (4.8-10.8) L 08/16/23 07:08 RBC 3.74 M/uL (4.20-5.40) L 08/16/23 07:08 Hgb 10.9 g/dl (12.0-16.0) L 08/16/23 07:08 Hct 34.6 % (37.0-47.0) L 08/16/23 07:08 MCV 92.5 fL (80.0-100.0) 08/16/23 07:08 MCH 29.1 pg (25.0-34.0) 08/16/23 07:08 MCHC 31.5 g/dL (32.0-36.0) L 08/16/23 07:08 RDW Std Deviation 53.6 fL (36.4-46.3) H 08/16/23 07:08 RDW Coeff of Lisset 16.0 % (11.5-14.5) H 08/16/23 07:08 Plt Count 233 K/uL (130-400) 08/16/23 07:08 MPV 8.9 fL (9.4-12.4) L 08/16/23 07:08 Immature Gran % (Auto) 1.4 % 08/10/23 14:26 Neut % (Auto) 64.2 % 08/10/23 14:26 Lymph % (Auto) 25.6 % 08/10/23 14:26 Dukes % (Auto) 6.7 % 08/10/23 14:26 Eos % (Auto) 1.4 % 08/10/23 14:26 Baso % (Auto) 0.7 % 08/10/23 14:26 Neut # (Auto) 1.83 K/uL (1.40-6.50) 08/10/23 14:26 Lymph # (Auto) 0.73 K/uL (1.20-3.40) L 08/10/23 14:26 Dukes # (Auto) 0.19 K/uL (0.11-0.59) 08/10/23 14:26 Eos # (Auto) 0.04 K/uL (0.00-0.50) 08/10/23 14:26 Baso # (Auto) 0.02 K/uL (0.00-0.20) 08/10/23 14:26 Immature Gran # (Auto) 0.04 K/uL (0.01-0.20) 08/10/23 14:26 Absolute Nucleated RBC 0.02 K/uL (0.00-0.12) 08/16/23 07:08 Nucleated RBC % (auto) 0.7 % 08/16/23 07:08 Neutrophils % (Manual) Cancelled 08/08/23 06:58 Band Neutrophils % Cancelled 08/08/23 06:58 Lymphocytes % (Manual) Cancelled 08/08/23 06:58 Prolymphocyte % Cancelled 08/08/23 06:58 Reactive Lymphs % (Man) Cancelled 08/08/23 06:58 Monocytes % (Manual) Cancelled 08/08/23 06:58 Eosinophils % (Manual) Cancelled 08/08/23 06:58 Basophils % (Manual) Cancelled 08/08/23 06:58 Metamyelocytes % (Man) Cancelled 08/08/23 06:58 Myelocytes % (Man) Cancelled 08/08/23 06:58 Promyelocytes % (Man) Cancelled 08/08/23 06:58 Blast Cells % (Manual) Cancelled 08/08/23 06:58 Plasma Cell % (Manual) Cancelled 08/08/23 06:58 Other Cells % Cancelled 08/08/23 06:58 Nucleated RBC % Cancelled 08/08/23 06:58 Neutrophils # (Manual) Cancelled 08/08/23 06:58 Band Neutrophils # Cancelled 08/08/23 06:58 Total Absolute Neuts Cancelled 08/08/23 06:58 Lymphocytes # (Manual) Cancelled 08/08/23 06:58 Prolymphocyte # Cancelled 08/08/23 06:58 Reactive Lymphs # Cancelled 08/08/23 06:58 Total Abs Lymphocytes Cancelled 08/08/23 06:58 Monocytes # (Manual) Cancelled 08/08/23 06:58 Eosinophils # (Manual) Cancelled 08/08/23 06:58 Basophils # (Manual) Cancelled 08/08/23 06:58 Metamyelocytes # (Man) Cancelled 08/08/23 06:58 Myelocytes # (Manual) Cancelled 08/08/23 06:58 Promyelocytes # (Man) Cancelled 08/08/23 06:58 Blast Cells # (Man) Cancelled 08/08/23 06:58 Plasma Cell # (Manual) Cancelled 08/08/23 06:58 Other Cells # Cancelled 08/08/23 06:58 Nucleated RBCs # (Man) Cancelled 08/08/23 06:58 Hypersegmented Neuts Cancelled 08/08/23 06:58 Hyposegmented Neuts Cancelled 08/08/23 06:58 Hypogranular Neuts Cancelled 08/08/23 06:58 Large Granular Lymphs Cancelled 08/08/23 06:58 # Lrg Granular Lymphs Cancelled 08/08/23 06:58 Hairy Cells Cancelled 08/08/23 06:58 Smudge Cells Cancelled 08/08/23 06:58 Toxic Granulation Cancelled 08/08/23 06:58 Toxic Vacuolation Cancelled 08/08/23 06:58 Dohle Bodies Cancelled 08/08/23 06:58 Addison Rods Cancelled 08/08/23 06:58 Hypogranular Platelets Cancelled 08/08/23 06:58 Giant Platelets Cancelled 08/08/23 06:58 Platelet Satelliting Cancelled 08/08/23 06:58 RBC Morphology Cancelled 08/08/23 06:58 Polychromasia Cancelled 08/08/23 06:58 Hypochromasia Cancelled 08/08/23 06:58 Poikilocytosis Cancelled 08/08/23 06:58 Basophilic Stippling Cancelled 08/08/23 06:58 Anisocytosis Cancelled 08/08/23 06:58 Microcytosis Cancelled 08/08/23 06:58 Macrocytosis Cancelled 08/08/23 06:58 Spherocytes Cancelled 08/08/23 06:58 Pappenheimer Bodies Cancelled 08/08/23 06:58 Sickle Cells Cancelled 08/08/23 06:58 Target Cells Cancelled 08/08/23 06:58 Tear Drop Cells Cancelled 08/08/23 06:58 Ovalocytes Cancelled 08/08/23 06:58 Stomatocytes Cancelled 08/08/23 06:58 Kay-Sequim Bodies Cancelled 08/08/23 06:58 Echinocytes Cancelled 08/08/23 06:58 Acanthocytes (Spur) Cancelled 08/08/23 06:58 Rouleaux Cancelled 08/08/23 06:58 RBC Agglutinates Cancelled 08/08/23 06:58 Schistocytes Cancelled 08/08/23 06:58 Peripher Smr Path Cons 08/05/23 13:11 Sezary Cell Cancelled 08/08/23 06:58 Sodium 134 mmol/L (136-145) L 08/16/23 07:08 Potassium 4.3 mmol/L (3.5-5.1) 08/16/23 07:08 Chloride 99 mmol/L (98-107) 08/16/23 07:08 Carbon Dioxide 27 mmol/L (21-32) 08/16/23 07:08 Anion Gap 8 (3-11) 08/16/23 07:08 BUN 19 mg/dl (6-23) 08/16/23 07:08 Creatinine 0.49 mg/dl (0.6-1.2) L 08/16/23 07:08 Est Cr Clr Drug Dosing 136.9 ml/min 08/16/23 07:08 Est GFR ( Amer) 126.2 ml/min 08/16/23 07:08 Est GFR (Non-Af Amer) 108.9 ml/min 08/16/23 07:08 BUN/Creatinine Ratio 38.8 (10-20) H 08/16/23 07:08 Glucose 119 mg/dl (70-99(Fasting)) H 08/16/23 07:08 POC Glucose 82 mg/dl (70-99) 08/18/23 07:41 Estimat Average Glucose 154 mg/dl 08/06/23 05:45 Hemoglobin A1c 7.0 % (4.5-5.6) H 08/06/23 05:45 Calcium 8.9 mg/dl (8.6-10.3) 08/16/23 07:08 Phosphorus 3.3 mg/dl (2.5-4.9) 08/16/23 07:08 Magnesium 1.7 mg/dl (1.7-2.4) 08/16/23 07:08 Iron 61 mcg/dl (35-150) 08/05/23 13:11 Unsaturated IBC 269 mcg/dl (155-355) 08/05/23 13:11 Transferrin 249 mg/dl (200-360) 08/05/23 13:11 Ferritin 186.7 ng/ml (8-388) 08/05/23 13:11 Total Bilirubin 0.5 mg/dl (0.2-1.0) 08/05/23 13:11 AST 29 U/L (13-39) 08/05/23 13:11 ALT 20 U/L (7-52) 08/05/23 13:11 Alkaline Phosphatase 91 U/L (34-104) 08/05/23 13:11 Total Protein 6.6 gm/dl (6.0-8.3) 08/05/23 13:11 Albumin 4.3 gm/dl (3.4-5.0) 08/05/23 13:11 Globulin 2.3 gm/dl (2.5-4.0) L 08/05/23 13:11 Albumin/Globulin Ratio 1.9 (0.9-2) 08/05/23 13:11 Vitamin B12 277 pg/ml (180-914) 08/05/23 13:11 Folate > 22.30 ng/ml (>5.38) 08/05/23 13:11 TSH 10.631 uIu/ml (0.300-4.500) H 08/07/23 05:37 TSH Cancelled 08/07/23 05:37 Free T4 1.00 ng/dl (0.61-1.60) 08/07/23 05:37 Urine Color Yellow 08/05/23 Unknown Urine Appearance Cloudy (Clear) A 08/05/23 Unknown Urine pH 6.0 (4.5-7.5) 08/05/23 Unknown Ur Specific [place] 1.020 (1.000-1.030) 08/05/23 Unknown Urine Protein Negative (Negative) 08/05/23 Unknown Urine Glucose (UA) 3+ (Negative) H 08/05/23 Unknown Urine Ketones Negative (Negative) 08/05/23 Unknown Urine Blood 1+ (Negative) H 08/05/23 Unknown Urine Nitrite Negative (Negative) 08/05/23 Unknown Urine Bilirubin Negative (Negative) 08/05/23 Unknown Urine Urobilinogen Negative (Negative) 08/05/23 Unknown Ur Leukocyte Esterase 3+ (Negative) H 08/05/23 Unknown Urine WBC (Auto) >30 /hpf (0-5) H 08/05/23 Unknown Urine RBC (Auto) 5-10 /hpf (0-4) H 08/05/23 Unknown U Hyaline Cast (Auto) 1-5 /lpf (0-5) 08/05/23 Unknown U Epithel Cells (Auto) 20-30 /lpf (0-5) H 08/05/23 Unknown Urine Bacteria (Auto) 4+ (Negative) H 08/05/23 Unknown Blood Parasites ID Cancelled 08/08/23 06:58 Flow Cytometry Comment See Comment 08/11/23 Unknown Impressions Lumbar Spine CT 08/05/23 11:42 CT lumbar spine wo con CLINICAL HISTORY: low back pain, right sided TECHNIQUE: Multidetector row helical CT of the lumbar spine was performed without administration of intravenous contrast. Coronal and sagittal r eformations were obtained. Automated dose lowering techniques and/or adjustment according to patient size were utilized for this exam. CT DOSE: 1062.24 mGy.cm Comparison: Comparison is made to CT abdomen pelvis 07/16/2020 FINDINGS: For counting purposes, the last complete intervertebral disc space is considered L5-S1. No acute fractures are identified. Prominent osteophyte formation and mild loss of height of the L3 vertebral body is unchanged from prior exam. Vertebral body alignment is within normal limits. Surrounding soft tissues are unremarkable. IMPRESSION: Degenerative changes without evidence of acute bony injury. ACT 112: Negative or not required by law. Electronically signed by: Rishi Mckeon M.D. 08/05/2023 12:37 PM Abdomen/Pelvis CT 08/05/23 12:52 CT SCAN OF THE ABDOMEN AND PELVIS WITH IV CONTRAST CLINICAL HISTORY: Urinary tract infection. Back pain. COMPARISON STUDY: Abdominal CT dated 05/15/2021. TECHNIQUE: Following the IV administration of 93 cc of Optiray 320, CT scan of the abdomen and pelvis is performed from the lung bases to the proximal femora. Images are reviewed in the axial, sagittal, and coronal planes. IV contrast was administered without complication. A dose lowering technique was utilized adhering to the principles of ALARA. CT DOSE: 1342.8 mGy.cm FINDINGS: Lung bases: The heart is normal in size and without pericardial effusion. There are coronary artery calcifications. The lung bases are clear. Liver: The contrast-enhanced liver is normal in size, contour, and attenuation. There is no intrahepatic biliary ductal dilatation. The hepatic veins and portal veins are patent. Gallbladder: The gallbladder is distended but otherwise normal in appearance.. Spleen: The spleen is mildly enlarged measuring 13.5 cm in length. There are numerous low attenuation splenic mass lesions. These measure up to 4.8 cm. Pancreas: Unremarkable. Adrenal glands: Unremarkable. Kidneys: The contrast enhanced kidneys are normal in size and without hydronephrosis. The kidneys enhance symmetrically. Abdominal vasculature: The abdominal aorta is normal in course and caliber noting mild to moderate atherosclerotic calcification. Bowel: There is moderate to severe constipation. No bowel obstruction is seen. The appendix is not visualized. Peritoneum: There is no intraperitoneal free air or abdominal ascites. There is evidence of previous ventral hernia repairs. A residual fat-containing hernia is seen in the left ventral pelvis. Lymphadenopathy: There are mildly enlarged retroperitoneal lymph nodes. An aortocaval node on image #136 measures 2.2 x 1.2 cm. A right iliac chain node on image #245 measures 1.9 x 1.6 cm. There is confluent lymphadenopathy along the right external iliac chain extending into the groin. This encases the iliac vessels and measures approximately 8 x 3.5 cm as seen on image #288. There are likely enlarged right groin nodes. The lesion on image #29 measures 2.6 cm. Pelvic viscera: There is an air-fluid level within the bladder. The bladder is otherwise normal as imaged. The uterus and adnexa are normal as visualized. There is marked masslike expansion of the right gluteus medius muscles which extends into the right obturator foramen. There may also be involvement of the proximal right rectus femoris muscle. A 2.7 cm lesion is seen in the left gluteus minimus muscle on image #210. Skeletal structures: The skeletal structures are heterogeneously osteopenic. There is mild lumbosacral spondylosis. There is a chronic superior endplate c ompression deformity of L3. Metastatic bony involvement is suspected throughout the bony structures. Sclerotic change is noted in the sacroiliac joints and pubic symphysis. IMPRESSION: 1. There is marked masslike expansion of the right gluteus medius muscle extending into the right road equipment operator foramen. There is also mass involving the right rectus femoris muscle and the left gluteus minimus. Additionally, the spleen is mildly enlarged with several splenic masses. There are also enlarged retroperitoneal lymph nodes, as well as right iliac chain lymphadenopathy extending into tube the right groin. This constellation of findings is highly suggestive of a neoplastic process such as lymphoma. Tissue sampling will likely be required for further assessment. 2. The skeletal structures are significantly heterogeneous suggesting metastatic bone involvement. 3. There is an air-fluid level within the bladder, possibly related to instrumentation. Correlate with clinical findings and urinalysis. 4. Coronary artery atherosclerosis. 5. Moderate to severe constipation. 6. Additional findings as above. ACT 112: Positive. There are findings on this exam that require communication between the performing entity and the patient following Patient Test Result Information Act ([place] Act 112) guidelines. Electronically signed by: Igor Mccall M.D. 08/05/2023 2:53 PM Brain MRI 08/05/23 17:10 MR brain wo/w con CLINICAL HISTORY: Eval for metastasis TECHNIQUE: Multiplanar and multisequence MR images of the brain were obtained prior to and following administration of gadolinium contrast. Comparison: None available at the time of this dictation. FINDINGS: No abnormal restricted diffusion is identified. The white matter is unremarkable. The ventricular system is normal in appearance. No mass or abnormal enhancement is seen. There is no mass effect or midline shift. There is no evidence of acute intraparenchymal hemorrhage. No extra axial fluid collections are seen. The corpus callosum, pituitary gland, and cerebellar tonsils appear grossly unremarkable. Flow voids of the major intracranial arterial vessels are identified. The imaged portions of the paranasal sinuses, mastoid air cells, and orbits are unremarkable. IMPRESSION: No acute abnormality and in particular no evidence of metastatic disease. ACT 112: Negative or not required by law. Electronically signed by: Rishi Mckeon M.D. 08/05/2023 6:[address] 08/05/23 17:10 CT chest diagnostic wo/w con CLINICAL HISTORY: Eval for metastasis TECHNIQUE: Multidetector row helical CT of the chest was performed without and with intravenous contrast. Coronal and sagittal reformations were obtained. Automated dose lowering techniques and/or adjustment according to patient size were utilized for this exam. CT DOSE: 1565.74 mGy.cm Comparison: Comparison is made to rib series 08/15/[address] abdomen pelvis 08/05/2023 FINDINGS: Lungs and pleura: Minimal atelectatic changes are seen. There are a few additional nodules are seen on the left. There is a 3 mm nodule in the lingula (image 110). Heart and pericardium: Heart size is normal. No pericardial effusion. Vessels: Moderate atherosclerotic changes in the aorta and coronary arteries. Mediastinum and wesley: Multiple enlarged lymph nodes are seen measuring up to 23 mm in the right hilum and 10 mm in the left hilum. Chest wall and lower neck: Left axillary nodes measure up to 12 mm. Subcentimeter lymph nodes are seen in the right axilla. Abdomen: For findings below the diaphragm, please refer to CT of the abdomen dated the same. Bones: Degenerative changes in the thoracic spine. IMPRESSION: 1. Lymphadenopathy is seen in the left axilla and right greater than left wesley. Findings are suspicious for neoplastic process such as lymphoma. 2. Patulous and fluid-filled esophagus, correlation for achalasia is recommended. ACT 112: Positive. There are findings on this exam that require communication between the performing entity and the patient following Patient Test Result Information Act [place] Act 112) guidelines. Electronically signed by: Rishi Mckeon M.D. 08/05/2023 6:28 PM Biopsy Ultrasound 08/08/23 07:00 Ultrasound-guided right groin mass core biopsy INDICATION: Right iliac chain lymphadenopathy extending into the right groin PROCEDURE: Procedure and risks were explained. Informed consent was obtained. A final timeout was completed. The right groin was prepped and draped in sterile fashion. 1% buffered lidocaine was utilized for skin anesthesia. The patient received 25 mcg fentanyl IV. Utilizing ultrasound guidance, an 18-gauge core biopsy needle was advanced into the right groin mass. Ultrasound images were obtained. 4 cores were obtained and given to the pathologist for review. The needle was removed and Band-Aid applied. The patient tolerated the procedure well. Vital signs will be monitored postprocedure. IMPRESSION: Right groin mass core biopsy as detailed above. Performed, dictated, and signed by Alexys Pickett PA-C; to be co-signed by Dr. Gael Ha. Electronically signed by: Gael Ha M.D. 08/08/2023 2:59 PM Lymph Node Biopsy Ultrasound 08/11/23 12:24 ULTRASOUND-GUIDED LEFT AXILLARY LYMPH NODE CORE BIOPSY CLINICAL HISTORY: Abnormal left axillary lymph node PROCEDURE: Procedure and risks were explained. Informed consent was obtained. A final timeout was completed. The left axilla was prepped and draped in sterile fashion. 1% buffered lidocaine was utilized for skin anesthesia. The patient received 100 mcg fentanyl IV. Utilizing ultrasound guidance, an 18-gauge core biopsy needle was advanced into the left axillary lymph node. Ultrasound images were obtained. 4 cores were obtained and given to the pathologist for review. The patient tolerated the procedure well. IMPRESSION: Ultrasound-guided left axillary lymph node core biopsy as above. Performed, dictated, and signed by Alexys Pickett PA-C; to be co-signed by Dr. Gael Ha. Electronically signed by: Gael Ha M.D. 08/11/2023 3:35 PM Ordered Studies 08/05/23 11:42 CT lumbar spine wo con Stat 08/05/23 12:52 CT abd pelvis IV con only Stat 08/05/23 17:10 CT chest diagnostic wo/w con Stat MRI Brain [MR brain wo/w con] Stat 08/08/23 07:00 IR biops softtiss mass/musc US Routine 08/11/23 12:24 IR biopsy lymph US Urgent Hospital Course (1) Mass of buttock: Lymphoma/metastatic disease Right gluteal mass Splenomegaly with retroperitoneal lymphadenopathy Leukopenia, normocytic anemia -CT abd/pelvis:There is marked masslike expansion of the right gluteus medius muscle extending into the right road equipment operator foramen. There is also mass involving the right rectus femoris muscle and the left gluteus minimus. Additionally, the spleen is mildly enlarged with several splenic masses. There are also enlarged retroperitoneal lymph nodes, as well as right iliac chain lymphadenopathy ex tending into tube the right groin. This constellation of findings is highly suggestive of a neoplastic process such as lymphoma. --CT Chest: Lymphadenopathy is seen in the left axilla and right greater than left wesley. Findings are suspicious for neoplastic process such as lymphoma. --MRI Brain: No acute abnormality and in particular no evidence of metastatic disease. --Lumbar CT: Degenerative changes without evidence of acute bony injury. -- Peripheral smear: No overt changes of neoplastic process or hemolytic anemia Appreciate oncology Input -needs PET scan, Chemo-Port upon discharge. Plans to be started on chemotherapy Pain control PT OT as able Had lymph node biopsy on 08/09/2023, bone biopsy on 08/10/2023 Gen surg consulted for consideration of excisional biopsy - feel R retroperiton eal nodes are too deep. No surgery recommended currently. Discussed with Dr. Archibald on multiple occasions Appreciate pain management help Started on gabapentin, tizanidine, continue oxycodone Continue Medrol pack to complete the course Advised to follow-up with PCP, oncology on discharge UTI Urine culture ESBL E. coli Empirically on Rocephin>> ertapenem Completed IV Ertapenem course Hypomagnesemia Replete electrolytes as needed Monitor Constipation - resolved Continue bowel regimen HTN HLD Continue home medications Monitor GERD Continue PPI Hypothyroidism: Elevated TSH, normal free T4 Continue levothyroxine 150 mcg daily Depression: Continue citalopram DVT Px: Lovenox SQ CODE STATUS Full code Disposition Home Total Time Total Time Spent Total Time Spent (In Minutes): 58 minutes Discharge Plan Discharge Items Patient Disposition: Home - Self-Care Reason For Visit: PAIN IN LOWER BACK AND LEGS Discharge Diagnosis: Lymphoma ESBL E. coli urinary tract infection Hypomagnesemia Activity: Per Instructions section Exercise/Sports: Wait until after follow-up appointment Non-emergency contact: Primary Care Provider and Oncologist Call non-emergency contact if: you have any medication questions, your symptoms worsen and your pain is concerning for you Follow-up/Referrals: Flynn Archibald MD [Physician] - 08/23/23 2:30 pm () Héctor Johnson MD [Primary Care Provider] - (Date & Time 08/23/2023 11:00 AM Provider Celestino Lewis MD [facility] ) Diet: Carb Consistent or DM2 and Heart Healthy Addtl Attending Provider Instructions: Follow-up with your primary care physician Dr. Johnson on 08/23/2023 11:00 AM Follow-up with your oncologist Dr. Archibald as scheduled on 08/23/23 at 2:30 PM Medrol Pack (methylprednisolone) taper Course: on 08/18/23:Take methylprednisolone 4 mg at 2PM and 9PM on 08/19/23:Take methylprednisolone 4 mg at 9AM and 9 PM on 08/20/23:Take methylprednisolone 4 mg at 9 AM only -- Your blood pressure has been normal during your hospital stay. Monitor your blood pressure regularly at home. Discuss with your physician for further adjustment of medications as needed. -- Monitor your blood glucose levels as instructed and discussed with your primary care physician for further adjustment of diabetic medications as needed. -- Your final pathology results are pending at the time of discharge. Follow-up with your physician for results. Seek immediate medical attention if your symptoms reoccur or worsen Please take all medications as instructed on discharge list below. Please call if you have any questions or problems. You can reach a [facility] hospitalist on duty at [facility] 24 hours a day by calling [phone] Pending Studies at Discharge: Yes Studies:: Pathology results Stand-Alone Forms: My [facility], Smoking Cessation Medications and DC Order Prescriptions: New tizanidine 4 mg Tablet 2 mg PO TID PRN (Reason: Spasms) Qty: 30 0RF fentanyl 50 mcg/hr Patch 72 Hour 50 mcg transdermal Q3D@0900 Qty: 5 0RF bisacodyl 10 mg Suppository 10 mg GA DAILY PRN (Reason: constipation) Qty: 30 0RF gabapentin 300 mg Capsule 300 mg PO BID Qty: 60 0RF Mag 64 64 mg Tablet,Delayed Release (Dr/Ec) 64 mg PO BID Qty: 60 0RF polyethylene glycol 3350 [Miralax] 17 gram Powder In Packet 17 g PO DAILY PRN (Reason: Constipation) Qty: 30 0RF docusate sodium [Colace] 100 mg capsule 100 mg PO BID Qty: 60 0RF Rx Instructions: Hold for diarrhea oxycodone 10 mg tablet 10 mg PO Q8H PRN (Reason: pain) Qty: 15 0RF methylprednisolone 4 mg tablet 4 mg PO UD 3 Days Qty: 5 0RF Rx Instructions: As directed Continued metformin 1,000 mg Tablet 1,000 mg PO BID Qty: 0 aspirin 81 mg Tablet,Delayed Release (Dr/Ec) 81 mg PO QAM Qty: 0 citalopram 20 mg Tablet 20 mg PO QAM Qty: 0 atorvastatin [Lipitor] 20 mg Tablet 20 mg PO PM Qty: 0 insulin degludec [Tresiba FlexTouch U-100] 100 unit/mL (3 mL) insulin pen 36 unit SUBCUT QAM omeprazole 40 mg capsule,delayed release(DR/EC) 40 mg PO DAILYBB Ozempic 1 mg/dose (4 mg/3 mL) pen injector 1 mg SUBCUT WK Rx Instructions: levothyroxine 150 mcg tablet 150 mcg PO DAILYBB oxybutynin chloride 5 mg tablet 5 mg PO AMHS Jardiance 25 mg tablet 25 mg PO QAM alendronate 70 mg tablet 70 mg PO WK Rx Instructions: Held lisinopril 10 mg Tablet 10 mg PO QAM Qty: 0 Hold Instructions: Hold until further recommendations from your Primary care physician Discharge Orders: Discharge Order (Routine); Ordered 08/18/23 Ordered By: Titi Preston Admission Data Admit Date/Time: 08/05/23 16:49 Attending Provider: Titi Preston Admit Provider: Titi Preston Primary Care Provider: Héctor Johnson Other Providers: Flynn Archibald; Titi Preston; Parker Marie; Martha Britton
[2023-08-19] MEDS ORDERED: methylPREDNISolone 4 MG TAB PO SCH ×2 (07:00)
[2023-08-20] MEDS ORDERED: methylPREDNISolone 4 MG TAB PO SCH ×2 (07:00)
[2023-08-21] MEDS ORDERED: methylPREDNISolone 4 MG TAB PO SCH (07:00)
== END 2023-08-18 14:14 | disposition home or self-care (01) | DRG 824 ==
LOC: ED 10:55 → EDINP 16:49 → SUATTDRO 16:49 → EDINP 17:04 → 3N 18:50

== ENCOUNTER 2023-12-22 16:35 | Inpatient (IN) ==
[2023-12-22] MEDS ORDERED: POLYETHYLENE (MIRALAX) 17 GM PACK PO PRN (16:41)
[2023-12-22] MEDS ORDERED: ONDANSETRON INJ 2 MG/ML 2 ML VIAL IV PRN (16:41)
--- NOTE | 2023-12-22 17:11 | History & Physical Report ---
Date of Service December 22, 2023 Assessment & Plan (1) Febrile neutropenia: Plan: This is a 58yo F with a PMH of diffuse large B-cell lymphoma (following with [facility], most recent treatment was cycle 6 day 1 on 12/14/23), type 2 diabetes on insulin, recurrent UTI, hypertension, hypothyroidism, hyperlipidemia and other medical problems listed below who presents from acute visit with [facility] for fever and suspected UTI. Fever (tmax: 38.5 C) in setting of UTI, possible chest wall cellulitis VSS stable Received 1 L NSS in clinic, will given add'l liter at 125ml/hr Severe neutropenia noted in setting of chemo treatment - WBC 0.48, ANC <0.5 Follow blood cultures obtained earlier today Continue neutropenic precautions Repeat CBC daily (2) B-cell lymphoma: Plan: Following with [facility] On polatuzamab + R-CHOP, last dose 12/14/23 Continue ppx acyclovir, holding bactrim while on broad spectrum abx as below (3) Complicated UTI (urinary tract infection): (4) History of ESBL E. coli infection: Plan: Urinary sx x 2 days UA in with ESBL Cover with meropenem and vanc MRSA swab Contact precautions (5) Cellulitis of chest wall: Plan: ? Developing cellulitis from infected bug bite Port site on L chest wall c/d/i Vanc as above (6) Generalized weakness: Plan: 2/2 above Fall precautions (7) DM2 (diabetes mellitus, type 2): Plan: A1c 7.0 in July, repeat in AM Hold home agents Basal/bolus insulin per protocol while in-patient BSG AC HS (8) Back pain: Plan: Longstanding back pain On Percocet 5/325 Q4-6H PRN - continue Resume gabapentin (ran out at home) Due for MRI 01/18 (9) HTN (hypertension): Plan: Low normal - 109/71 Continue lisinopril with hold parameters (10) HLD (hyperlipidemia): Plan: Continue statin HS (11) Hypothyroidism: Plan: Continue levothyroxine (12) Depression: Plan: Stable. Continue citalopram DVT Ppx: SCDs for now - recheck platelet count in AM to consider adding chemical vte Code status: FULL PCP: Alex Dispo: adm med/surg Patient seen in collaboration with Dr. Malone. Please see addendum. I spent a total of 75 minutes coordinating, documenting, and providing care for this patient excluding time spent in the performance of separately billed services. History of Present Illness Chief Complaint: fever, direct admission from [facility] Primary Care Provider: Héctor Johnson MD This is a 58yo F with a PMH of diffuse large B-cell lymphoma (following with [facility], most recent treatment was cycle 6 day 1 on 12/14/23), type 2 diabetes on insulin, recurrent UTI, hypertension, hypothyroidism, h yperlipidemia and other medical problems listed below who presents from acute visit with [facility] for fever and suspected UTI. Patient started to feel rundown 2 days ago and woke up this morning with a fever of 100.2 F. Was able to see DAVID Bro in clinic who felt that given patient's immunocompromised state and fever, would be best served by a direct admission for IV antibiotics and closer monitoring. Associated symptoms include chills and nausea. Has had increased urinary frequency and some burning for the past few days similar to previous urinary tract infections. Has been on acyclovir and Bactrim for suppressive therapy. Patient also notes a bug bite on her right chest wall that seems to be hot and tender. No headache, chest pain, palpitations, vomiting, abdominal pain, diarrhea or constipation. Allergies Allergy/AdvReac Type Severity Reaction Status Date / Time adhesive tape Allergy Mild Rash/Itchin Verified 09/15/23 09:28 ess Home Medications Medication Instructions Recorded Confirmed Type metformin 1,000 mg tablet 1,000 mg PO BID ##0 09/21/09 12/22/23 History aspirin 81 mg tablet,delayed 81 mg PO QAM ##0 08/15/13 12/22/23 History release atorvastatin 20 mg tablet (Lipitor) 20 mg PO HS #0 tabs 08/15/13 12/22/23 His tory citalopram 20 mg tablet 20 mg PO QAM ##0 08/15/13 12/22/23 History insulin degludec 100 unit/mL (3 36 unit subcut QAM 05/15/21 12/22/23 History mL) subcutaneous pen (Tresiba FlexTouch U-100 insulin) alendronate 70 mg tablet 70 mg PO Q7D 08/05/23 12/22/23 History empagliflozin 25 mg tablet 25 mg PO QAM 08/05/23 12/22/23 History (Jardiance) levothyroxine 150 mcg tablet 150 mcg PO QAM 08/05/23 12/22/23 History omeprazole 40 mg capsule,delayed 40 mg PO QAM 08/05/23 12/22/23 History release oxybutynin chloride 5 mg tablet 5 mg PO BID 08/05/23 12/22/23 History semaglutide 1 mg/dose (4 mg/3 mL) 1 mg subcut Q7D 08/05/23 12/22/23 History subcutaneous pen injector (Ozempic) docusate sodium 100 mg capsule 100 mg PO BID #60 caps 08/17/23 12/22/23 Rx (Colace) gabapentin 300 mg capsule 300 mg PO BID #60 caps 08/17/23 12/22/23 Rx polyethylene glycol 3350 17 gram 17 g PO DAILY PRN Constipation #30 08/17/23 12/22/23 Rx oral powder packet (Miralax) ea apple cider vinegar 1 tab PO DAILY 08/24/23 12/22/23 History cranberry 1 tab PO DAILY 08/24/23 12/22/23 History lisinopril 10 mg tablet 10 mg PO QAM ##0 09/15/23 12/22/23 History tizanidine 4 mg tablet 4 mg PO BID PRN Spasms 09/15/23 12/22/23 History acyclovir 400 mg tablet 400 mg PO BID 12/22/23 12/22/23 History oxycodone-acetaminophen 5 mg-325 1 tab PO Q6H PRN pain or fever 12/22/23 12/22/23 History mg tablet sulfamethoxazole 800 1 tab PO [id number] 12/22/23 12/22/23 History mg-trimethoprim 160 mg tablet Past Med/Surg History Problem List Generalized weakness Cellulitis of chest wall Febrile neutropenia History of ESBL E. coli infection Complicated UTI (urinary tract infection) B-cell lymphoma (Chronic 08/05/23) Asthma Splenic mass Lymphadenopathy Mass of buttock (Acute) Lumbar radiculopathy (Acute) Back pain (Acute) UTI (urinary tract infection) Renal calculi Lymphoma dx 2023 Lumbar radicular pain DM2 (diabetes mellitus, type 2) (Chronic) HTN (hypertension) (Chronic) "pt only on meds for her kidneys and diabetes, no high blood pressure" HLD (hyperlipidemia) (Chronic) GERD (gastroesophageal reflux disease) (Chronic) Hypothyroidism (Chronic) Depression (Chronic) Delivered by section (Chronic) x2 H/O hernia repair (Chronic) 1996,1998,2007 H/O dilation and curettage (Chronic) H/O tubal ligation (Chronic) Hx of tonsillectomy (Chronic) Medical History FELICITY (obstructive sleep apnea) Nausea and vomiting after administration of anesthetic agent 2005, after , "but had eaten prior to procedure, procedure was an emergency, no issues since then" History of frequent urinary tract infections has had 4 since 02/2023 Hx of renal calculi Hx of migraines 32 years ago, had "migraine induced seizure, no seizures since then." Surgical History Port-A-Cath in place (08/30/23) Insertion Access Port with Fluoroscopy, Left subclavian (Left) - Parker Marie, DO S/P cystoscopy with ureteral stent placement w/laser destruction of kidney stone Hx of colonoscopy Family History Mother Cancer skin cancer Diabetes Hypertension Brother Colorectal cancer Hypertension Father Hypertension Other Mass of buttock Social History Smoking Status: Former smoker Tobacco Type: Cigarettes Second Hand Exposure: Yes (hx growing up); Do You Dip or Chew Tobacco: No; Hx Alcohol Use: Yes Alcohol type: other Alcohol type Comment: wine coolers Hx Substance Use: No Preferred Language: Japanese Communication Ability: Effective Print Cutter Required: No Beliefs That Will Affect Care: None Current Living Situation: Spouse and Family current occupational status: other current occupation: [employer] Feels Safe at Home: Yes Assistive Devices: Glasses Review of Systems Review of Systems: At least ten systems reviewed and negative except as noted in the HPI. Physical Exam Physical Exam: Please see Dr. Malone' addendum for physical exam. Results & Data Results & Data Laboratory Results admission labs pending Diagnostic Findings admission CXR: IMPRESSION: No acute process. Code Status & VTE Plan VTE Prophylaxis Plan VTE Prophylaxis will be ordered: Yes Supervising Physician Co-Signing Physician Notes I have seen and discussed the case with the collaborating advanced practitioner. I agree with the above H&P. I have reviewed and confirmed the patients medical history, the findings on physical examination, and the patients diagnosis and treatment plan with Julio SHARPE and agree with the information documented. Ms Manuel is a 58 yo F with PMhx of recurrent UTI, DM type II, hypothyroidism, HTN, HLD, FELICITY, GERD, and aggressive B cell lymphoma on [facility] who is admitted for febrile neutropenia who has urine consistent with infection. OP labs with notable neutropenia s/p [facility] on 12/13 Patient reports ssx c/w UTI marked by frequency and dysuria for over 48 hours. Patient also reports cellulitis on chest after presumptive bug bite GENERAL APPEARANCE: AxOx4, fatigued appearing woman , no acute distress. HEENT: NC, AT. MMM. EOMI, clear conjunctiva, oropharynx clear. NECK: Supple without lymphadenopathy. No stiffness or restricted ROM. HEART: Normal rate and regular rhythm, normal S1/S1, no m/r/g LUNGS: CTAB, moving air well. No crackles or wheezes are heard. ABDOMEN: Soft, nontender, nondistended with good bowel sounds heard. BACK: No CVAT, no obvious deformity. EXTREMITIES: Without cyanosis, clubbing or edema. NEUROLOGICAL: Grossly nonfocal. Alert and oriented, moving all 4 extremities. CN not formally tested but appear grossly intact Skin: small wound on right chest with surrounding firmness and erythema #Acute complicated UTI #HX ESBL #Febrile neutropenia #Probable cellulitis -UA in with ESBL MRSA swab Start Vanc/Meropenem Follow cultures Continue ppx acyclovir contact precautions #Severe neutropenia #Bcell lymphoma on HOP trend cbc w diff heme consult neutropenic precautions Rest of plan as above I spent a total of 35 minutes coordinating, documenting, and providing care for this patient excluding time spent in the performance of separately billed services. All of the aforementioned completed outside of collaborating with the assigned advanced practitioner for a full treatment plan. I have reviewed the advanced practitioner's documentation, and I agree with, and take responsibility for the plan of care (2) B-cell lymphoma B-cell lymphoma type: diffuse large B-cell (8) Back pain Back pain laterality: bilateral Back pain location: low back pain Chronicit y: unspecified Sciatica laterality: bilateral sciatica Sciatica presence: with sciatica Qualified Code(s): M54.42 - Lumbago with sciatica, left side; M54.41 - Lumbago with sciatica, right side
[2023-12-22] MEDS ORDERED: CEFEPIME 2,000 MG in SYRINGE 0 ML IV SCH (18:00)
[2023-12-22] MEDS ORDERED: Patient's HEIGHT &/or WEIGHT Needed SCH (18:00)
--- NOTE | 2023-12-22 18:07 | XRay Report ---
XR chest 1V portable HISTORY: 58 years-old Female admission COMPARISON: PET/CT 10/26/2023 TECHNIQUE: AP view of the chest FINDINGS: Cardiac silhouette is unchanged. Left subclavian [id number] catheter. No pneumothorax, large pleur al effusion, or pulmonary edema or lobar airspace consolidation. Spondylotic spurring of the spine. O sseous metastatic disease better seen on prior exam. IMPRESSION: No acute process. ACT 112: Negative or not required by law. The above report was generated using voice recognition software. It may contain grammatical, syntax o r spelling errors. Electronically signed by: Gael Ha M.D. 12/22/2023 6:05 PM
[2023-12-22] MEDS: ACETAMINOPHEN 325 MG TAB PO PRN (18:24)
[2023-12-22] MEDS: MAGNESIUM SULFATE / D5W 1 GM/100 ML BAG IV SCH (18:25)
[2023-12-22] MEDS ORDERED: VANCOMYCIN CONSULT ACTIVE PRN (18:29)
[2023-12-22] MEDS ORDERED: tiZANidine HCL 4 MG TABLET PO PRN (18:31)
--- NOTE | 2023-12-22 19:45 | Pharmacy Report ---
Pharmacy PK ABX Note - Date of Service December 22, 2023 - Assessment and Plan Assessment Ms Manuel is a 58 yo F with PMhx of recurrent UTI, DM type II, hypothyroidism, HTN, HLD, FELICITY, GERD, and aggressive B cell lymphoma on [facility] who is admitted for febrile neutropenia. She last received chemo on 12/13. Patient reports symptoms consistent with UTI, frequency and dysuria for over 48 hours. She also reports cellulitis on chest after presumptive bug bite. Plan Vancomycin * Loading dose: 2000 mg IV x 1 * Maintenance dose: mg IV every 7 hours * Regimen is predicted to achieve target AUC/HAMMAD of 400-600 mg/L.hr * predicted AUC/HAMMAD at steady state: 555 mg/L.hr * Vanc level ordered for: 12/23 with am labs Pharmacy will continue to follow and will adjust dose/frequency as necessary. Thank you. Pharmacy has transitioned to AUC monitoring for vancomycin. AUC/HAMMAD is the preferred PK/PD target and is associated with decreased risk of nephrotoxicity compared to traditional trough targets.
[2023-12-22] MEDS ORDERED: DEXTROSE 50% 50 ML SYRINGE IV PRN (19:56)
[2023-12-22] MEDS ORDERED: GLUCOSE 40% GEL 15 GM TUBE PO PRN (19:56)
[2023-12-22] MEDS ORDERED: GLUCOSE 10 TAB/TUBE PO PRN (19:56)
[2023-12-22] MEDS ORDERED: CARBOHYDRATES FOR HYPOGLYCEMIA PO PRN (19:56)
[2023-12-22] MEDS ORDERED: GLUCAGON FOR INJ 1 MG VIAL SQ PRN (19:56)
[2023-12-22] MEDS: LACTATED RINGER'S 1,000 ML IV SCH (20:23)
[2023-12-22] MEDS: VANCOMYCIN HCL 2,000 MG in SODIUM CHLORIDE 0.9% 500 ML IV ONE (20:24)
[2023-12-22] MEDS: oxyBUTYnin chloride 5 MG TAB PO SCH (20:29)
[2023-12-22] MEDS: DOCUSATE SODIUM 100 MG CAP PO SCH (20:30)
[2023-12-22] MEDS: GABAPENTIN 300 MG CAP PO SCH (20:31)
[2023-12-22] MEDS: ACYCLOVIR 400 MG TAB PO SCH (20:32)
[2023-12-22] MEDS: ATORVASTATIN 20 MG TAB PO SCH (20:32)
[2023-12-22] MEDS: LANTUS PER UNIT CHARGE SQ SCH (22:14)
[2023-12-22] MEDS: INSULIN ASPART PER UNIT CHARGE SC SCH (22:15)
[2023-12-22] MEDS: MEROPENEM 500 MG in SYRINGE 0 ML IV SCH (22:16)
[2023-12-22] MEDS: oxyCODONE/ACETAMINOPHEN 5mg/325mg TAB PO PRN (23:14)
[2023-12-23] MEDS: LEVOTHYROXINE SODIUM 150 MCG TABLET PO SCH (06:03)
[2023-12-23] MEDS: lisinopril 10 MG TAB PO SCH (07:42)
[2023-12-23] MEDS: PANTOprazole 40 MG TAB PO SCH (07:43)
[2023-12-23] MEDS: CITALOPRAM 20 MG TAB PO SCH (07:43)
[2023-12-23] MEDS: ASPIRIN 81 MG ECTAB PO SCH (07:43)
[2023-12-23] MEDS: VANCOMYCIN HCL 1,500 MG in SODIUM CHLORIDE 0.9% 500 ML IV SCH (07:48)
[2023-12-23 08:27] LABS: Estimated Average Glucose 134 mg/dl; Hemoglobin A1C 6.3 % (4.5-5.6)
[2023-12-23 08:53] LABS: Albumin Globulin Ratio 1.7 (0.9-2); Albumin Level 3.4 gm/dl (3.4-5.0); Bilirubin,Total 0.4 mg/dl (0.2-1.0); Calcium 8.3 mg/dl (8.6-10.3); Magnesium 1.9 mg/dl (1.7-2.4); Phosphorus 3.3 mg/dl (2.5-4.9); Potassium 3.5 mmol/L (3.5-5.1); Total Protein 5.4 gm/dl (6.0-8.3)
[2023-12-23] MEDS ORDERED: CRANBERRY PO SCH (09:00)
[2023-12-23 09:05] LABS: Dohle Bodies 3+; Mean Corpuscular Hgb Conc 33.3 g/dL (32.0-36.0); Mean Platelet Volume 10.6 fL (9.4-12.4); Platelet Count 57 K/uL (130-400); RDW Coefficient of Variation 16.9 % (11.5-14.5); RDW Standard Deviation 60.8 fL (36.4-46.3); Red Blood Count 2.09 M/uL (4.20-5.40); Tear Drop Cells 1+
[2023-12-23 09:19] LABS: BUN Creatinine Ratio 14.3 (10-20); Creatinine Clr Calc Pharmacy 144.3 ml/min; Est GFR (African American) 126.2 ml/min; Est GFR (Non-African American) 108.9 ml/min
[2023-12-23 10:00] LABS: Basophils # (auto) 0.01 K/uL (0.00-0.20); Basophils % (auto) 1.1 %; Eosinophils # (auto) 0.01 K/uL (0.00-0.50); Eosinophils % (auto) 1.1 %; Hematocrit (blood only) 20.7 % (37.0-47.0); Hemoglobin 6.9 g/dl (12.0-16.0); Lymphocytes # (auto) 0.17 K/uL (1.20-3.40); Lymphocytes % (auto) 18.3 %; Monocytes # (auto) 0.19 K/uL (0.11-0.59); Monocytes % (auto) 20.4 %; Neutrophils # (auto) 0.55 K/uL (1.40-6.50); Neutrophils % (auto) 59.1 %; White Blood Count 0.93 K/ul (4.8-10.8)
--- NOTE | 2023-12-23 11:41 | Infectious Disease Consult ---
Date of Service December 23, 2023 Telehealth Information I performed this visit using a real-time telehealth connection between my location and the patients location ([facility]). After connecting through interactive tele-video, patient was identified by name and date of and/or wristband check.Patient (or authorized healthcare benefits representative) was informed that this was a telemedicine visit and it was being conducted confidentially over secure lines. My office door was closed and no one else was present in the room with me.Patient (or authorized healthcare benefits representative) provided consent to proceed with the visit, expressed an understanding of privacy and security of the telemedicine visit, and gave permission to have a hospital benefits representative in the room in order to assist with the visit and to conduct portions of the visit, as needed. I informed the patient (or authorized healthcare benefits representative) that I reviewed their record and presented the opportunity for them to ask any questions regarding the visit today. The patient agreed to participate. Assessment & Plan (1) Febrile neutropenia: (2) UTI (urinary tract infection): (3) E coli infection: (4) History of ESBL E. coli infection: (5) Complicated UTI (urinary tract infection): (6) B-cell lymphoma: Plan Assessment: Pt is a 58 yo F with a PMH of diffuse large B-cell lymphoma (following with [facility], most recent treatment was cycle 6 day 1 on 12/14/23), type 2 diabetes on insulin, recurrent UTI, hypertension, hypothyroidism, hyperlipidemia and other medical problems listed below who presented to [facility] on 12/22/2023 from acute visit with CCP for fever and suspected UTI. At [facility], pt had a Fever (tmax: 38.5 C) in setting of UTI, possible chest wall cellulitis, VSS stable, and noted to have severe neutropenia noted in setting of chemo treatment - WBC 0.48, ANC <0.5. Blood cultures and Urine cultures collected. Blood culture pending and Urine culture showing E. coli preliminarily. Plan: - Recommend continuing Meropenem IV given previous culture data. - Recommend following up on Blood and Urine cultures - we will not active monitor patient, for additional recommendation please contact the ID physician via tiger text or call. Thank you for your consult. History of Present Illness History of Present Illness Reason for Consult: febrile neutropenia Pt is a 58 yo F with a PMH of diffuse large B-cell lymphoma (following with [facility], most recent treatment was cycle 6 day 1 on 12/14/23), type 2 diabetes on insulin, recurrent UTI, hypertension, hypothyroidism, hyperlipidemia and other medical problems listed below who presented to [facility] on 12/22/2023 from acute visit with CCP for fever and suspected UTI. At [facility], pt had a Fever (tmax: 38.5 C) in setting of UTI, possible chest wall cellulitis, VSS stable, and noted to have severe ntropenia noted in setting of chemo treatment - WBC 0.48, ANC <0.5. Blood cultures and Urine cultures collected. Blood culture pending and Urine culture showing E. coli preliminarily. ID consulted for evaluation and management. Allergies Allergy/AdvReac Type Severity Reaction Status Date / Time adhesive tape Allergy Mild Rash/Itchin Verified 09/15/23 09:28 ess Home Medications Medication Instructions Recorded Confirmed Type metformin 1,000 mg tablet 1,000 mg PO BID ##0 09/21/09 12/22/23 History aspirin 81 mg tablet,delayed 81 mg PO QAM ##0 08/15/13 12/22/23 History release atorvastatin 20 mg tablet (Lipitor) 20 mg PO HS #0 tabs 08/15/13 12/22/23 History citalopram 20 mg tablet 20 mg PO QAM ##0 08/15/13 12/22/23 History insulin degludec 100 unit/mL (3 36 unit subcut QAM 05/15/21 12/22/23 History mL) subcutaneous pen (Tresiba FlexTouch U-100 insulin) alendronate 70 mg tablet 70 mg PO Q7D 08/05/23 12/22/23 History empagliflozin 25 mg tablet 25 mg PO QAM 08/05/23 12/22/23 History (Jardiance) levothyroxine 150 mcg tablet 150 mcg PO QAM 08/05/23 12/22/23 History omeprazole 40 mg capsule,delayed 40 mg PO QAM 08/05/23 12/22/23 History release oxybutynin chloride 5 mg tablet 5 mg PO BID 08/05/23 12/22/23 History semaglutide 1 mg/dose (4 mg/3 mL) 1 mg subcut Q7D 08/05/23 12/22/23 History subcutaneous pen injector (Ozempic) docusate sodium 100 mg capsule 100 mg PO BID #60 caps 08/17/23 12/22/23 Rx (Colace) gabapentin 300 mg capsule 300 mg PO BID #60 caps 08/17/23 12/22/23 Rx polyethylene glycol 3350 17 gram 17 g PO DAILY PRN Constipation #30 08/17/23 12/22/23 Rx oral powder packet (Miralax) ea apple cider vinegar 1 tab PO DAILY 08/24/23 12/22/23 History cranberry 1 tab PO DAILY 08/24/23 12/22/23 History lisinopril 10 mg tablet 10 mg PO QAM ##0 09/15/23 12/22/23 History tizanidine 4 mg tablet 4 mg PO BID PRN Spasms 09/15/23 12/22/23 History acyclovir 400 mg tablet 400 mg PO BID 12/22/23 12/22/23 History oxycodone-acetaminophen 5 mg-325 1 tab PO Q6H PRN pain or fever 12/22/23 12/22/23 History mg tablet sulfamethoxazole 800 1 tab PO MoWeFr@0900 12/22/23 12/22/23 History mg-trimethoprim 160 mg tablet Patient History Medical History FELICITY (obstructive sleep apnea) Nausea and vomiting after administration of anesthetic agent 2005, after , "but had eaten prior to procedure, procedure was an emergency, no issues since then" History of frequent urinary tract infections has had 4 since 02/2023 Hx of renal calculi Hx of migraines 32 years ago, had "migraine induced seizure, no seizures since then." Surgical History Port-A-Cath in place (08/30/23) Insertion Access Port with Fluoroscopy, Left subclavian (Left) - Parker Marie, DO S/P cystoscopy with ureteral stent placement w/laser destruction of kidney stone Hx of colonoscopy Family History Mother Cancer skin cancer Diabetes Hypertension Brother Colorectal cancer Hypertension Father Hypertension Other Mass of buttock Social History Smoking Status: Former smoker Tobacco Type: Cigarettes Second Hand Exposure: No; Do You Dip or Chew Tobacco: No; Hx Alcohol Use: Yes Alcohol type: other Alcohol type Comment: wine coolers Hx Substance Use: No Preferred Language: Samoan Communication Ability: Effective J2Ee Architect Required: No Beliefs That Will Affect Care: None Current Living Situation: Spouse and Family Current Living Situation Comment: , son, grandchild current occupational status: other 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 Physical Exam NA Results & Data Vital Signs (Past 12 Hours) Vital Signs Temp Pulse Resp BP Pulse Ox O2 Del Method 12/23/23 07:06 36.6 C 84 16 96/62 L 94 Room Air 12/23/23 04:20 38.1 C H Laboratory Results Urine culture on 08/03/2023 Urine Culture Final 08/07/23-0855 Organism 1 Escherichia coli ESBL Kiel Count >100,000 CFU/ml Sens Sensitivities to Follow +Mix Urine Plus Low Counts of Other Mixed Janneth ESBL E col RX M.I.C. --- --------- Amox/Clav I 16/8 Ampicillin R >16 Amp/Sul I 16/8 Cefazolin R >16 Cefepime R >16 Cefotaxime R >16 Ceftriaxone R >2 Ciprofloxacin R >2 Ertapenem S <=0.5 Gentamicin S <=4 Levofloxacin R >4 Meropenem S <=1 Nitrofurantoin S <=32 Tobramycin R >8 Trimeth/Sulfa S <=2/38 Pip/Tazo S <=16 S = SENSITIVE I = INTERMEDIATE R = RESISTANT 12/23/23 12/23/23 12/23/23 11:42 08:09 07:35 WBC 0.93 L* RBC 2.09 L Hgb 6.9 L* Hct 20.7 L* MCV 99.0 MCH 33.0 MCHC 33.3 RDW Std Deviation 60.8 H RDW Coeff of Lisset 16.9 H Plt Count 57 L MPV 10.6 Immature Gran % (Auto) 0.0 Neut % (Auto) 59.1 Lymph % (Auto) 18.3 Day % (Auto) 20.4 Eos % (Auto) 1.1 Baso % (Auto) 1.1 Neut # (Auto) 0.55 L* Lymph # (Auto) 0.17 L Day # (Auto) 0.19 Eos # (Auto) 0.01 Baso # (Auto) 0.01 Immature Gran # (Auto) 0.00 L Dohle Bodies 3+ Tear Drop Cells 1+ Sodium 138 Potassium 3.5 Chloride 104 Carbon Dioxide 29 Anion Gap 5 BUN 7 Creatinine 0.49 L Est Cr Clr Drug Dosing 144.3 Est GFR ( Amer) 126.2 Est GFR (Non-Af Amer) 108.9 BUN/Creatinine Ratio 14.3 Glucose 108 H POC Glucose 113 H 206 H Estimat Average Glucose 134 Hemoglobin A1c 6.3 H Lactate Calcium 8.3 L Phosphorus 3.3 Magnesium 1.9 Total Bilirubin 0.4 AST 25 ALT 21 Alkaline Phosphatase 55 Total Protein 5.4 L Albumin 3.4 Globulin 2.0 L Albumin/Globulin Ratio 1.7 Nasal Screen MRSA (PCR) Negative Anaplasma Smear See Comment Babesia Smear See Comment Lyme Disease Screen 12/22/23 12/22/23 21:17 20:27 WBC RBC Hgb Hct MCV MCH MCHC RDW Std Deviation RDW Coeff of Lisset Plt Count MPV Immature Gran % (Auto) Neut % (Auto) Lymph % (Auto) Day % (Auto) Eos % (Auto) Baso % (Auto) Neut # (Auto) Lymph # (Auto) Day # (Auto) Eos # (Auto) Baso # (Auto) Immature Gran # (Auto) Dohle Bodies Tear Drop Cells Sodium Potassium Chloride Carbon Dioxide Anion Gap BUN Creatinine Est Cr Clr Drug Dosing Est GFR ( Amer) Est GFR (Non-Af Amer) BUN/Creatinine Ratio Glucose POC Glucose 256 H Estimat Average Glucose Hemoglobin A1c Lactate 1.0 Calcium Phosphorus Magnesium Total Bilirubin AST ALT Alkaline Phosphatase Total Protein Albumin Globulin Albumin/Globulin Ratio Nasal Screen MRSA (PCR) Anaplasma Smear Babesia Smear Lyme Disease Screen Negative Urine culture on 12/22/2023 (+) E. coli, ana pending. Blood culture on 12/22/2023 pending Diagnostic Findings Chest X-Ray 12/22/23 16:45 XR chest 1V portable HISTORY: 58 years-old Female admission COMPARISON: PET/CT 10/26/2023 TECHNIQUE: AP view of the chest FINDINGS: Cardiac silhouette is unchanged. Left subclavian [id number] catheter. No pneumothorax, large pleural effusion, or pulmonary edema or lobar airspace consolidation. Spondylotic spurring of the spine. Osseous metastatic disease better seen on prior exam. IMPRESSION: No acute process. ACT 112: Negative or not required by law. The above report was generated using voice recognition software. It may contain grammatical, syntax or spelling errors. Electronically signed by: Gael Ha M.D. 12/22/2023 6:05 PM Medications Administered Home Medications Medication Instructions Recorded Confirmed Last Taken metformin 1,000 mg tablet 1,000 mg PO BID ##0 09/21/09 12/22/23 08/29/23 21:00 aspirin 81 mg tablet,delayed 81 mg PO QAM ##0 08/15/13 12/22/23 08/29/23 09:00 release atorvastatin 20 mg tablet (Lipitor) 20 mg PO HS #0 tabs 08/15/13 12/22/23 08/29/23 21:30 citalopram 20 mg tablet 20 mg PO QAM ##0 08/15/13 12/22/23 08/29/23 09:00 insulin degludec 100 unit/mL (3 36 unit subcut QAM 05/15/21 12/22/23 08/29/23 08:00 mL) subcutaneous pen (Tresiba FlexTouch U-100 insulin) alendronate 70 mg tablet 70 mg PO Q7D 08/05/23 12/22/23 08/25/23 empagliflozin 25 mg tablet 25 mg PO QAM 08/05/23 12/22/23 08/29/23 09:00 (Jardiance) levothyroxine 150 mcg tablet 150 mcg PO QAM 08/05/23 12/22/23 08/29/23 08:00 omeprazole 40 mg capsule,delayed 40 mg PO QAM 08/05/23 12/22/23 08/29/23 09:00 release oxybutynin chloride 5 mg tablet 5 mg PO BID 08/05/23 12/22/23 08/29/23 21:00 semaglutide 1 mg/dose (4 mg/3 mL) 1 mg subcut Q7D 08/05/23 12/22/23 08/04/23 subcutaneous pen injector (Ozempic) docusate sodium 100 mg capsule 100 mg PO BID #60 caps 08/17/23 12/22/23 08/29/23 09:00 (Colace) gabapentin 300 mg capsule 300 mg PO BID #60 caps 08/17/23 12/22/23 08/29/23 21 :00 polyethylene glycol 3350 17 gram 17 g PO DAILY PRN Constipation #30 08/17/23 12/22/23 08/23/23 oral powder packet (Miralax) ea apple cider vinegar 1 tab PO DAILY 08/24/23 12/22/23 08/29/23 21:30 cranberry 1 tab PO DAILY 08/24/23 12/22/23 08/29/23 08:00 lisinopril 10 mg tablet 10 mg PO QAM ##0 09/15/23 12/22/23 Unknown tizanidine 4 mg tablet 4 mg PO BID PRN Spasms 09/15/23 12/22/23 Unknown acyclovir 400 mg tablet 400 mg PO BID 12/22/23 12/22/23 Unknown oxycodone-acetaminophen 5 mg-325 1 tab PO Q6H PRN pain or fever 12/22/23 12/22/23 Unknown mg tablet sulfamethoxazole 800 1 tab PO MoWeFr@0900 12/22/23 12/22/23 Unknown mg-trimethoprim 160 mg tablet Active Medications Generic Name Dose Route Start Last Admin Trade Name Polaq PRN Reason Stop Dose Admin Acetaminophen 650 mg 12/22/23 16:41 12/23/23 04:10 Acetaminophen 325 Mg Tab PO 01/21/24 16:40 650 mg Q4H PRN Administration pain/fever Acyclovir 400 mg 12/22/23 21:00 12/23/23 07:43 Acyclovir 400 Mg Tab PO 01/21/24 20:59 400 mg BID JOHN Administration Aspirin 81 mg 12/23/23 09:00 12/23/23 07:43 Aspirin 81 Mg Ectab PO 01/22/24 08:59 81 mg QAM JOHN Administration Atorvastatin Calcium 20 mg 12/22/23 21:00 12/22/23 20:32 Atorvastatin 20 Mg Tab PO 01/21/24 20:59 20 mg HS JOHN Administration Citalopram Hydrobromide 20 mg 12/23/23 09:00 12/23/23 07:43 Citalopram 20 Mg Tab PO 01/22/24 08:59 20 mg QAM JOHN Administration Docusate Sodium 100 mg 12/22/23 21:00 12/23/23 07:43 Docusate Sodium 100 Mg Cap PO 01/21/24 20:59 100 mg BID JOHN Administration Gabapentin 300 mg 12/22/23 21:00 12/23/23 07:42 Gabapentin 300 Mg Cap PO 01/21/24 20:59 300 mg BID JOHN Administration Heparin Sodium (Beef Lung) 5 ml 12/23/23 01:37 12/23/23 04:12 Heparin 10 Unit/Ml 5 Ml Flush FLUSH 01/22/24 01:36 5 ml PRN PRN Administration Flush Meropenem 500 mg/ Syringe 10 mls @ 2 mls/min 12/22/23 18:30 12/23/23 09:32 IV 01/01/24 18:29 2 mls/min Q6H JOHN Administration Protocol Vancomycin HCl 1,500 mg/ 530 mls @ 200 mls/hr 12/23/23 08:00 12/23/23 10:34 Sodium Chloride IV 12/29/23 19:59 Infused Q12H JOHN Infusion Insulin Aspart 0 units 12/22/23 21:00 12/23/23 08:33 Insulin Aspart Per Unit Charge SC 01/21/24 20:59 9 units ACHS JOHN Administration Insulin Glargine 0 - 18 units 12/22/23 21:00 12/23/23 08:33 Lantus Per Unit Charge SQ 01/21/24 20:59 18 units BID JOHN Administration Levothyroxine Sodium 150 mcg 12/23/23 06:30 12/23/23 06:03 Levothyroxine Sodium 150 Mcg Tablet PO 01/22/24 06:29 150 mcg DAILYBB JOHN Administration Lisinopril 10 mg 12/23/23 09:00 12/23/23 07:42 Lisinopril 10 Mg Tab PO 01/22/24 08:59 10 mg QAM JOHN Administration Oxybutynin Chloride 5 mg 12/22/23 21:00 12/23/23 07:43 Oxybutynin Chloride 5 Mg Tab PO 01/21/24 20:59 5 mg BID JOHN Administration Oxycodone/Acetaminophen 1 tab 12/22/23 18:31 12/23/23 06:03 Oxycodone/Acetaminophen 5mg/325mg Tab PO 01/05/24 18:44 1 tab Q6H PRN Administration moderate to severe pain Pantoprazole Sodium 40 mg 12/23/23 09:00 12/23/23 07:43 Pantoprazole 40 Mg Tab PO 01/22/24 08:59 40 mg QAM JOHN Administration (6) B-cell lymphoma B-cell lymphoma type: diffuse large B-cell
[2023-12-23] MEDS ORDERED: SODIUM CHLORIDE 0.9% 250 ML IV PRN (15:02)
--- NOTE | 2023-12-23 16:46 | Hospitalist Progress Note ---
Date of Service December 23, 2023 Assessment & Plan (1) Febrile neutropenia: Plan: This is a 58yo F with a PMH of diffuse large B-cell lymphoma (following with [facility], most recent treatment was cycle 6 day 1 on 12/14/23), type 2 diabetes on insulin, recurrent UTI, hypertension, hypothyroidism, hyperlipidemia and other medical problems listed below who presents from acute visit with CCP for fever and suspected UTI. Fever (tmax: 38.5 C) in setting of UTI, possible chest wall cellulitis VSS stable Received 1 L NSS in clinic, will given add'l liter at 125ml/hr Severe neutropenia noted in setting of chemo treatment - WBC 0.48, ANC <0.5 Follow blood cultures obtained earlier today Continue neutropenic precautions Repeat CBC daily 12/22 Afebrile since last night Urine culture: E. coli, 100 K, sensitivities pending Blood cultures: Pending ID consulted Recommend to continue meropenem ANC improved to 550 Monitor closely Hematology service on board Pancytopenia Likely secondary to chemo therapy Hemoglobin 6.9 Will transfuse 1 unit of packed RBCs Discussed with Dr. Archibald monitor CBC (2) B-cell lymphoma: Plan: Following with [facility] On polatuzamab + R-CHOP, last dose 12/14/23 Continue ppx acyclovir, holding bactrim while on broad spectrum abx as below (3) Complicated UTI (urinary tract infection): (4) History of ESBL E. coli infection: Plan: Urinary sx x 2 days UA in with ESBL Cover with meropenem MRSA swab: negative Contact precautions (5) Cellulitis of chest wall: Plan: ? Developing cellulitis from infected bug bite Port site on L chest wall c/d/i Vanc as above Check for Lyme, anaplasmosis, Babesia (6) Generalized weakness: Plan: 2/2 above Fall precautions (7) DM2 (diabetes mellitus, type 2): Plan: A1c 7.0 in July, repeat in AM Hold home agents Basal/bolus insulin per protocol while in-patient BSG AC HS (8) Back pain: Plan: Longstanding back pain On Percocet 5/325 Q4-6H PRN - continue Resume gabapentin (ran out at home) Due for MRI 01/18 will order MRI as inpatient (9) HTN (hypertension): Plan: Low normal - 109/71 Continue lisinopril with hold parameters (10) HLD (hyperlipidemia): Plan: Continue statin HS (11) Hypothyroidism: Plan: Continue levothyroxine (12) Depression: Plan: Stable. Continue citalopram DVT Ppx: SCDs for now - recheck platelet count in AM to consider adding chemical vte Code status: FULL PCP: Alex Dispo: pending Admission and Anticipated Discharge Date Admission Date: December 22, 2023 Subjective Follow-up for febrile neutropenia, etc. Seen resting in bed, not in distress, comfortable Patient's at the bedside visiting States she feels improved compared to yesterday less weakness, no chills today Denies headache, sore throat, chest pain, shortness of breath, cough, abdominal pain, nausea vomiting, problems with urination, diarrhea No chest pain, palpitations, dizziness No other new symptoms Review of Systems Review of Systems: all noted and negative except for above Physical Exam Physical Exam: General- oriented x 3, not in distress, speaks in sentences with no effort or accessory muscle use Eyes- anicteric Neck- no JVD Lungs- clear breath sounds bilaterally, no rales/wheezes Heart- normal rate, regular rhythm; no murmurs Abdomen- normal bowel sounds, nondistended, soft, nontender Extremities- no pretibial edema, no calf tenderness Neuro- alert, oriented x 3; no gross focal neurologic deficits Skin- warm & dry Results & Data Results & Data Vital Signs (Past 12 Hours) Vital Signs Temp Pulse Resp BP Pulse Ox O2 Del Method 12/23/23 14:37 37.9 C H 95 H 18 119/73 94 Room Air 12/23/23 07:06 36.6 C 84 16 96/62 L 94 Room Air all noted and reviewed including below (2) B-cell lymphoma B-cell lymphoma type: diffuse large B-cell (8) Back pain Back pain laterality: bilateral Back pain location: low back pain Chronicity: unspecified Sciatica laterality: bilateral sciatica Sciatica presence: with sciatica Qualified Code(s): M54.42 - Lumbago with sciatica, left side; M54.41 - Lumbago with sciatica, right side
[2023-12-23] MEDS: diphenhydrAMINE Capsule 25 MG CAP PO ONE (20:58)
--- NOTE | 2023-12-23 21:14 | Electrocardiogram Report ---
Test Reason : Blood Pressure : / mmHG Vent. Rate : 081 BPM Atrial Rate : 081 BPM P-R Int : 160 ms QRS Dur : 092 ms QT Int : 360 ms P-R-T Axes : 032 000 009 degrees QTc Int : 418 ms Normal sinus rhythm Normal ECG When compared with ECG of 20-OCT-2015 14:43, No significant change Confirmed by Junaid Manuel ([id number]) on 12/23/2023 9:14:19 PM Referred By: Massiel Malone Confirmed By:Junaid Manuel
[2023-12-24] MEDS ORDERED: VANCOMYCIN LEVEL ONE (07:00)
[2023-12-24 07:58] LABS: Creatinine Clr Calc Pharmacy 176.8 ml/min; Est GFR (African American) 134.9 ml/min; Est GFR (Non-African American) 116.4 ml/min
[2023-12-24 10:15] LABS: Hematocrit (blood only) 25.1 % (37.0-47.0); Hemoglobin 8.4 g/dl (12.0-16.0); Mean Corpuscular Hemoglobin 32.3 pg (25.0-34.0); Mean Corpuscular Hgb Conc 33.5 g/dL (32.0-36.0); Mean Corpuscular Volume 96.5 fL (80.0-100.0); Mean Platelet Volume 10.1 fL (9.4-12.4); Platelet Count 67 K/uL (130-400); RDW Coefficient of Variation 19.7 % (11.5-14.5); White Blood Count 1.99 K/ul (4.8-10.8)
[2023-12-24 10:19] LABS: Calcium 8.8 mg/dl (8.6-10.3); Potassium 3.7 mmol/L (3.5-5.1)
[2023-12-24 10:50] LABS: Anisocytosis Present; Basophils # (auto) 0.02 K/uL (0.00-0.20); Dohle Bodies 1+; Eosinophils # (auto) 0.03 K/uL (0.00-0.50); Eosinophils % (auto) 1.5 %; Immature Granulocytes # (auto) 0.07 K/uL (0.01-0.20); Immature Granulocytes % (auto) 3.5 %; Lymphocytes # (auto) 0.23 K/uL (1.20-3.40); Lymphocytes % (auto) 11.6 %; Monocytes # (auto) 0.27 K/uL (0.11-0.59); Monocytes % (auto) 13.6 %; Neutrophils # (auto) 1.37 K/uL (1.40-6.50); Neutrophils % (auto) 68.8 %; Tear Drop Cells 2+; Toxic Granulation 1+
[2023-12-24] MEDS: GADOBUTROL 30ML VIAL IV ONE (11:12)
[2023-12-24] MEDS: ERTAPENEM SODIUM 1,000 MG in SYRINGE 0 ML IV SCH (11:43)
--- NOTE | 2023-12-24 12:19 | Magnetic Resonance Report ---
MR thoracic spine wo/w con, MR lumbar spine wo/w con HISTORY: 58 years-old Female back pain chronic back pain in a patient with history of lymphoma COMPARISON: PET/CT 10/26/2023, 08/23/2023 TECHNIQUE: Multiplanar multisequence MRI of the thoracic and lumbar spine was obtained with and witho ut IV contrast. FINDINGS: THORACIC: The district scout executive localizer images demonstrate no gross extraspinal abnormality. The study is motion degrade d. Multifocal areas of marrow replacement again noted throughout the osseous structures with patchy e nhancement most notably present at T7, T10, T11 and T12. This corresponds with the hypermetabolic les ion seen on the prior PET CTs. Minimal T10 wedge deformity is chronic. No acute pathologic fracture, subluxation or endplate erosions. No epidural tumor or fluid collections. No significant tumor involv ement into the neural foramen identified on this study. Pathologic marrow replacement involves the ri ght transverse process at T7 as well as a few medial ribs bilaterally. Mild to moderate multilevel intervertebral disc space narrowing, spondylitic spurring and facet arthr osis. Posterior disc osteophyte complex at T12-L1. There is no high-grade central canal or foraminal narrowing. There is at least mild narrowing of the left lateral recess at T12-L1. Mild multilevel cassandra ral foraminal narrowing. There is normal signal within the thoracic spinal cord. Conus medullaris terminates at T12-L1. Trace pleural effusions. LUMBAR: The district scout executive localizer images demonstrate no gross extraspinal abnormality. Multifocal areas of marrow replacement with heterogeneous enhancement redemonstrated throughout the lumbar spine, sacrum and ilium imaged iliac bones. No acute pathologic fracturing. Chronic mild L3 compression deformity. The cauda equina appear unremarkable. Trace free pelvic fluid. No significant epidural tumor involvem ent. Anteflexed uterus appears heterogeneous. L1-L2: No central canal or foraminal narrowing. L2-L3: Moderate to severe disc space narrowing with circumferential disc osteophyte complex. Mild fla ttening of the ventral thecal sac without significant central canal or foraminal narrowing. L3-L4: No central canal or foraminal narrowing. L4-L5: No central canal or foraminal narrowing. L5-S1: No central canal or foraminal narrowing. IMPRESSION: 1. Multifocal marrow replacement compatible with the patient's history of lymphoma with osseous invol vement has not significantly changed compared to the 10/26/2023 PET/CT. 2. No acute pathologic fracture, or significant epidural tumor involvement. 3. Chronic mild T10 wedge deformity without retropulsion. 4. No significant central canal or foraminal narrowing within the thoracic or lumbar spine. ACT 112: Negative or not required by law. The above report was generated using voice recognition software. It may contain grammatical, syntax o r spelling errors. Electronically signed by: Gael Ha M.D. 12/24/2023 12:17 PM
[2023-12-24] MEDS: BACITRACIN OINT 14 GM TUBE EXT SCH (14:24)
--- NOTE | 2023-12-24 16:58 | Hospitalist Progress Note ---
Date of Service December 24, 2023 Assessment & Plan (1) Febrile neutropenia: Plan: This is a 58yo F with a PMH of diffuse large B-cell lymphoma (following with [facility], most recent treatment was cycle 6 day 1 on 12/14/23), type 2 diabetes on insulin, recurrent UTI, hypertension, hypothyroidism, hyperlipidemia and other medical problems listed below who presents from acute visit with CCP for fever and suspected UTI. Febrile Neutropenia secondary to ESBL E coli Fever (tmax: 38.5 C) in setting of UTI, possible chest wall cellulitis VSS stable Received 1 L NSS in clinic, will given add'l liter at 125ml/hr Severe neutropenia noted in setting of chemo treatment - WBC 0.48, ANC <0.5 Follow blood cultures obtained earlier today Continue neutropenic precautions Repeat CBC daily 12/22 Afebrile since last night Urine culture: E. coli, 100 K, sensitivities pending Blood cultures: Pending ID consulted Recommend to continue meropenem ANC improved to 550 Monitor closely Hematology service on board 12/23 clinically improving Urine cx: ESBL E coli Blood cultures: negative so far transition from Meropenem to Ertapenem ANC increased to 1,300 monitor closely Pancytopenia Likely secondary to chemo therapy Hemoglobin 6.9 Will transfuse 1 unit of packed RBCs Discussed with Dr. Archibald Hg improved to 8.4 Chest Wall Wound history of insect bite Bacitracin BID seems to be healing well monitor CBC (2) B-cell lymphoma: Plan: Following with [facility] On polatuzamab + R-CHOP, last dose 12/14/23 Continue ppx acyclovir, holding bactrim while on broad spectrum abx as below (3) Complicated UTI (urinary tract infection): (4) History of ESBL E. coli infection: Plan: Urinary sx x 2 days UA in with ESBL Cover with meropenem MRSA swab: negative Contact precautions (5) Cellulitis of chest wall: Plan: ? Developing cellulitis from infected insect bite Port site on L chest wall c/d/i Vanc as above Check for Lyme, anaplasmosis, Babesia Lyme: negative Anaplasmosis, Babesia DNA: pending (6) Generalized weakness: Plan: 2/2 above Fall precautions (7) DM2 (diabetes mellitus, type 2): Plan: A1c 7.0 in July, repeat in AM Hold home agents Basal/bolus insulin per protocol while in-patient BSG AC HS (8) Back pain: Plan: Longstanding back pain On Percocet 5/325 Q4-6H PRN - continue Resume gabapentin (ran out at home) Due for MRI 01/18 MRI ordered: IMPRESSION: 1. Multifocal marrow replacement compatible with the patient's history of lymphoma with osseous involvement has not significantly changed compared to the 10/26/2023 PET/CT. 2. No acute pathologic fracture, or significant epidural tumor involvement. 3. Chronic mild T10 wedge deformity without retropulsion. 4. No significant central canal or foraminal narrowing within the thoracic or lumbar spine. ACT 112: Negative or not required by law. (9) HTN (hypertension): Plan: Low normal - 109/71 Continue lisinopril with hold parameters (10) HLD (hyperlipidemia): Plan: Continue statin HS (11) Hypothyroidism: Plan: Continue levothyroxine (12) Depression: Plan: Stable. Continue citalopram DVT Ppx: SCDs for now - recheck platelet count in AM to consider adding chemical vte Code status: FULL PCP: Alex Dispo: anticipate d/c home when medically stable Admission and Anticipated Discharge Date Admission Date: December 22, 2023 Subjective ff up for febrile neutropenia, etc seen resting in bed, comfortable feels better today overall no chills, nausea, abdominal pain, problems with urination no other symptoms Review of Systems Review of Systems: all noted and negative except for above Physical Exam Physical Exam: General- oriented x 3, not in distress, speaks in sentences with no effort or accessory muscle use Eyes- anicteric Neck- no JVD Lungs- clear breath sounds bilaterally, no rales/wheezes Chest- right chest wall: small area of erythema, with central punctate wound, healing well, no fluctuant mass noted, no tenderness Heart- normal rate, regular rhythm; no murmurs Abdomen- normal bowel sounds, nondistended, soft, nontender Extremities- no pretibial edema, no calf tenderness Neuro- alert, oriented x 3; no gross focal neurologic deficits Skin- warm & dry Results & Data Results & Data Vital Signs (Past 12 Hours) Vital Signs Temp Pulse Resp BP Pulse Ox O2 Del Method 12/24/23 14:56 36.6 C 84 16 115/73 94 Room Air 12/24/23 07:36 36.6 C 77 16 121/75 94 Room Air all noted and reviewed including below (2) B-cell lymphoma B-cell lymphoma type: diffuse large B-cell (8) Back pain Back pain laterality: bilateral Back pain location: low back pain Chronicity: unspecified Sciatica laterality: bilateral sciatica Sciatica presence: with sciatica Qualified Code(s): M54.42 - Lumbago with sciatica, left side; M54.41 - Lumbago with sciatica, right side
[2023-12-25 06:50] LABS: Basophils # (auto) 0.03 K/uL (0.00-0.20); Basophils % (auto) 1.2 %; Eosinophils # (auto) 0.03 K/uL (0.00-0.50); Eosinophils % (auto) 1.2 %; Hematocrit (blood only) 28.7 % (37.0-47.0); Hemoglobin 9.5 g/dl (12.0-16.0); Immature Granulocytes # (auto) 0.09 K/uL (0.01-0.20); Immature Granulocytes % (auto) 3.6 %; Lymphocytes # (auto) 0.32 K/uL (1.20-3.40); Mean Corpuscular Hemoglobin 31.7 pg (25.0-34.0); Mean Corpuscular Hgb Conc 33.1 g/dL (32.0-36.0); Mean Corpuscular Volume 95.7 fL (80.0-100.0); Mean Platelet Volume 10.4 fL (9.4-12.4); Monocytes % (auto) 16.2 %; Neutrophils % (auto) 64.8 %; Nucleated RBC # (auto) 0.03 K/uL (0.00-0.12); Nucleated RBC % (auto) 1.2 %; Platelet Count 102 K/uL (130-400); RDW Standard Deviation 65.7 fL (36.4-46.3); White Blood Count 2.47 K/ul (4.8-10.8)
[2023-12-25 07:24] LABS: BUN Creatinine Ratio 23.7 (10-20); Calcium 9.4 mg/dl (8.6-10.3); Creatinine Clr Calc Pharmacy 186.1 ml/min; Est GFR (African American) 137.2 ml/min; Est GFR (Non-African American) 118.4 ml/min; Potassium 3.9 mmol/L (3.5-5.1)
--- NOTE | 2023-12-25 16:17 | Hospitalist Progress Note ---
Date of Service December 25, 2023 Assessment & Plan (1) Febrile neutropenia: Plan: This is a 58yo F with a PMH of diffuse large B-cell lymphoma (following with [facility], most recent treatment was cycle 6 day 1 on 12/14/23), type 2 diabetes on insulin, recurrent UTI, hypertension, hypothyroidism, hyperlipidemia and other medical problems listed below who presents from acute visit with CCP for fever and suspected UTI. Febrile Neutropenia secondary to ESBL E coli Fever (tmax: 38.5 C) in setting of UTI, possible chest wall cellulitis VSS stable Received 1 L NSS in clinic, will given add'l liter at 125ml/hr Severe neutropenia noted in setting of chemo treatment - WBC 0.48, ANC <0.5 Follow blood cultures obtained earlier today Continue neutropenic precautions Repeat CBC daily 12/22 Afebrile since last night Urine culture: E. coli, 100 K, sensitivities pending Blood cultures: Pending ID consulted Recommend to continue meropenem ANC improved to 550 Monitor closely Hematology service on board 12/23 clinically improving Urine cx: ESBL E coli Blood cultures: negative so far transition from Meropenem to Ertapenem ANC increased to 1,300 monitor closely 12/24 Continues to improve We will ANC 1600 Discussed with ID service Plan to continue IV ertapenem daily to complete 10-day course Patient has a port in place Pancytopenia Likely secondary to chemo therapy Hemoglobin 6.9 Will transfuse 1 unit of packed RBCs Discussed with Dr. Archibald Hg improved to 9 Plt also 100k Chest Wall Wound history of insect bite Bacitracin BID seems to be healing well monitor CBC (2) B-cell lymphoma: Plan: Following with [facility] On polatuzamab + R-CHOP, last dose 12/14/23 Continue ppx acyclovir, holding bactrim while on broad spectrum abx as below (3) Complicated UTI (urinary tract infection): (4) History of ESBL E. coli infection: Plan: Urinary sx x 2 days UA in with ESBL MRSA swab: negative Contact precautions management per above (5) Cellulitis of chest wall: Plan: ? Developing cellulitis from infected insect bite Port site on L chest wall c/d/i MRSA nasal swab: negative Check for Lyme, anaplasmosis, Babesia Lyme: negative Anaplasmosis, Babesia DNA: pending (6) Generalized weakness: Plan: 2/2 above Fall precautions (7) DM2 (diabetes mellitus, type 2): Plan: A1c 7.0 in July, repeat in AM Hold home agents Basal/bolus insulin per protocol while in-patient BSG AC HS (8) Back pain: Plan: Longstanding back pain On Percocet 5/325 Q4-6H PRN - continue Resume gabapentin (ran out at home) Due for MRI 01/18 MRI ordered: IMPRESSION: 1. Multifocal marrow replacement compatible with the patient's history of lymphoma with osseous involvement has not significantly changed compared to the 10/26/2023 PET/CT. 2. No acute pathologic fracture, or significant epidural tumor involvement. 3. Chronic mild T10 wedge deformity without retropulsion. 4. No significant central canal or foraminal narrowing within the thoracic or lumbar spine. ACT 112: Negative or not required by law. (9) HTN (hypertension): Plan: Low normal - 109/71 Continue lisinopril with hold parameters (10) HLD (hyperlipidemia): Plan: Continue statin HS (11) Hypothyroidism: Plan: Continue levothyroxine (12) Depression: Plan: Stable. Continue citalopram DVT Ppx: SCDs , encouraged to ambulate Code status: FULL PCP: Alex Dispo: anticipate d/c home when home health services arranged Admission and Anticipated Discharge Date Admission Date: December 22, 2023 Subjective Follow-up for febrile neutropenia, UTI, etc. Seen resting in bed, comfortable, not in distress States she continues to feel improved overall Weakness improving, ambulating with no problems No abdominal pain, nausea vomiting, fevers or chills No other new symptoms Review of Systems Review of Systems: all noted and negative except for above Physical Exam Physical Exam: General- oriented x 3, not in distress, speaks in sentences with no effort or accessory muscle use Eyes- anicteric Neck- no JVD Lungs- clear breath sounds bilaterally, no rales/wheezes Heart- normal rate, regular rhythm; no murmurs Abdomen- normal bowel sounds, nondistended, soft, nontender Extremities- no pretibial edema, no calf tenderness Neuro- alert, oriented x 3; no gross focal neurologic deficits Skin- warm & dry Results & Data Results & Data Vital Signs (Past 12 Hours) Vital Signs Temp Pulse Resp BP Pulse Ox O2 Del Method 12/25/23 15:15 36.6 C 76 16 98/64 L 94 Room Air 12/25/23 06:53 36.5 C 70 16 106/67 95 Room Air all noted and reviewed including below (2) B-cell lymphoma B-cell lymphoma type: diffuse large B-cell (8) Back pain Back pain laterality: bilateral Back pain location: low back pain Chronicity: unspecified Sciatica laterality: bilateral sciatica Sciatica presence: with sciatica Qualified Code(s): M54.42 - Lumbago with sciatica, left side; M54.41 - Lumbago with sciatica, right side
[2023-12-26 07:44] LABS: Hematocrit (blood only) 30.8 % (37.0-47.0); Hemoglobin 10.2 g/dl (12.0-16.0); Mean Corpuscular Hemoglobin 31.7 pg (25.0-34.0); Mean Corpuscular Hgb Conc 33.1 g/dL (32.0-36.0); Mean Corpuscular Volume 95.7 fL (80.0-100.0); Mean Platelet Volume 10.8 fL (9.4-12.4); Nucleated RBC # (auto) 0.03 K/uL (0.00-0.12); Nucleated RBC % (auto) 0.9 %; Platelet Count 157 K/uL (130-400); RDW Coefficient of Variation 18.4 % (11.5-14.5); RDW Standard Deviation 63.7 fL (36.4-46.3); Red Blood Count 3.22 M/uL (4.20-5.40); White Blood Count 3.42 K/ul (4.8-10.8)
[2023-12-26 08:05] LABS: Basophils # (auto) 0.03 K/uL (0.00-0.20); Basophils % (auto) 0.9 %; Eosinophils # (auto) 0.03 K/uL (0.00-0.50); Eosinophils % (auto) 0.9 %; Immature Granulocytes # (auto) 0.22 K/uL (0.01-0.20); Immature Granulocytes % (auto) 6.4 %; Lymphocytes # (auto) 0.35 K/uL (1.20-3.40); Lymphocytes % (auto) 10.2 %; Monocytes % (auto) 11.7 %; Neutrophils # (auto) 2.39 K/uL (1.40-6.50); Neutrophils % (auto) 69.9 %; Ovalocytes 1+; Polychromasia 1+; Tear Drop Cells 2+; Toxic Granulation 2+
[2023-12-26 08:08] LABS: BUN Creatinine Ratio 34.9 (10-20); Calcium 9.4 mg/dl (8.6-10.3); Creatinine Clr Calc Pharmacy 164.5 ml/min; Est GFR (African American) 131.8 ml/min; Est GFR (Non-African American) 113.7 ml/min; Potassium 4.4 mmol/L (3.5-5.1)
--- NOTE | 2023-12-26 17:40 | Discharge Summary ---
Discharge Summary Date of Service December 26, 2023 Principal Dx & Hospital Course #1 = Principal Diagnosis (1) Febrile neutropenia: Febrile neutropenia, secondary to ESBL E. coli urinary tract infection, Recurrence This is a 58yo F with a PMH of diffuse large B-cell lymphoma (following with [facility], most recent treatment was cycle 6 day 1 on 12/14/23), type 2 diabetes on insulin, recurrent UTI, hypertension, hypothyroidism, hyp erlipidemia and other medical problems listed below who presents from acute visit with CCP for fever and suspected UTI. Febrile Neutropenia secondary to ESBL E coli Fever (tmax: 38.5 C) in setting of UTI, possible chest wall cellulitis VSS stable Received 1 L NSS in clinic, will given add'l liter at 125ml/hr Severe neutropenia noted in setting of chemo treatment - WBC 0.48, ANC <0.5 Urine culture: ESBL E. coli Blood cultures: Negative Required 1 unit of packed RBCs for hemoglobin of 6.9 Patient's pancytopenia gradually improved ID consulted Recommended IV ertapenem times total of 10 days Given total of 3 days of IV ertapenem as an inpatient She gradually improved clinically, fever resolved CBC upon discharge WBC 3.4, hemoglobin 10.2, platelet count 157 She will receive IV ertapenem daily at home CBC CMP in 1 week, please follow-up results (2) B-cell lymphoma: Following with [facility] On polatuzamab + R-CHOP, last dose 12/14/23 Continue ppx acyclovir, bactrim (3) Complicated UTI (urinary tract infection): (4) History of ESBL E. coli infection: management per above (5) Cellulitis of chest wall: ? Developing cellulitis from infected insect bite Port site on L chest wall : no signs of infection MRSA nasal swab: negative Check for Lyme, anaplasmosis, Babesia Lyme: negative Anaplasmosis, Babesia DNA: pending, pls ff up small area of redness, improving continue Bacitracin BID (6) Generalized weakness: resolved (7) DM2 (diabetes mellitus, type 2): A1c 7.0 in July, repeat in AM continue usual regimen (8) Back pain: Longstanding back pain On Percocet 5/325 Q4-6H PRN - continue Resume gabapentin (ran out at home) MRI ordered: IMPRESSION: 1. Multifocal marrow replacement compatible with the patient's history of lymphoma with osseous involvement has not significantly changed compared to the 10/26/2023 PET/CT. 2. No acute pathologic fracture, or significant epidural tumor involvement. 3. Chronic mild T10 wedge deformity without retropulsion. 4. No significant central canal or foraminal narrowing within the thoracic or lumbar spine. ACT 112: Negative or not required by law. (9) HTN (hypertension): Continue lisinopril with hold parameters (10) HLD (hyperlipidemia): Continue statin HS (11) Hypothyroidism: Continue levothyroxine (12) Depression: Stable. Continue citalopram DVT Ppx: SCDs , encouraged to ambulate Code status: FULL PCP: Alex Dispo: d/c roberta ff up with PCP in 1 week ff up with oncologist as scheduled Notes For Next Care Provider Medication Changes From Visit Ertapenem 1 g IV daily x 7 days Admission HPI Per Admitting Provider This is a 58yo F with a PMH of diffuse large B-cell lymphoma ([facility], most recent treatment was cycle 6 day 1 on 12/14/23), type 2 diabetes on insulin, recurrent UTI, hypertension, hypothyroidism, hyperlipidemia and other medical problems listed below who presents from acute visit with CCP for fever and suspected UTI. Patient started to feel rundown 2 days ago and woke up this morning with a fever of 100.2 F. Was able to see DAVID Bro in clinic who felt that given patient's immunocompromised state and fever, would be best served by a direct admission for IV antibiotics and closer monitoring. Associated symptoms include chills and nausea. Has had increased urinary frequency and some burning for the past few days similar to previous urinary tract infections. Has been on acyclovir and Bactrim for suppressive therapy. Patient also notes a bug bite on her right chest wall that seems to be hot and tender. No headache, chest pain, palpitations, vomiting, abdominal pain, diarrhea or constipation. Admission Exam Per Admitting Provider GENERAL APPEARANCE: AxOx4, fatigued appearing woman , no acute distress. HEENT: NC, AT. MMM. EOMI, clear conjunctiva, oropharynx clear. NECK: Supple without lymphadenopathy. No stiffness or restricted ROM. HEART: Normal rate and regular rhythm, normal S1/S1, no m/r/g LUNGS: CTAB, moving air well. No crackles or wheezes are heard. ABDOMEN: Soft, nontender, nondistended with good bowel sounds heard. BACK: No CVAT, no obvious deformity. EXTREMITIES: Without cyanosis, clubbing or edema. NEUROLOGICAL: Grossly nonfocal. Alert and oriented, moving all 4 extremities. CN not formally tested but appear grossly intact Skin: small wound on right chest with surrounding firmness and erythema Discharge Exam General- oriented x 3, not in distress, speaks in sentences with no effort or accessory muscle use Eyes- anicteric Neck- no JVD Lungs- clear breath sounds bilaterally, no rales/wheezes Heart- normal rate, regular rhythm; no murmurs Abdomen- normal bowel sounds, nondistended, soft, nontender Extremities- no pretibial edema, no calf tenderness Neuro- alert, oriented x 3; no gross focal neurologic deficits Skin- warm & dry Updated Medication List Medication Instructions Recorded Confirmed Type metformin 1,000 mg tablet 1,000 mg PO BID ##0 09/21/09 12/22/23 History aspirin 81 mg tablet,delayed 81 mg PO QAM ##0 08/15/13 12/22/23 History release atorvastatin 20 mg tablet (Lipitor) 20 mg PO HS #0 tabs 08/15/13 12/22/23 History citalopram 20 mg tablet 20 mg PO QAM ##0 08/15/13 12/22/23 History insulin degludec 100 unit/mL (3 36 unit subcut QAM 05/15/21 12/22/23 History mL) subcutaneous pen (Tresiba FlexTouch U-100 insulin) alendronate 70 mg tablet 70 mg PO Q7D 08/05/23 12/22/23 History empagliflozin 25 mg tablet 25 mg PO QAM 08/05/23 12/22/23 History (Jardiance) levothyroxine 150 mcg tablet 150 mcg PO QAM 08/05/23 12/22/23 History omeprazole 40 mg capsule,delayed 40 mg PO QAM 08/05/23 12/22/23 History release oxybutynin chloride 5 mg tablet 5 mg PO BID 08/05/23 12/22/23 History semaglutide 1 mg/dose (4 mg/3 mL) 1 mg subcut Q7D 08/05/23 12/22/23 History subcutaneous pen injector (Ozempic) docusate sodium 100 mg capsule 100 mg PO BID #60 caps 08/17/23 12/22/23 Rx (Colace) gabapentin 300 mg capsule 300 mg PO BID #60 caps 08/17/23 12/22/23 Rx polyethylene glycol 3350 17 gram 17 g PO DAILY PRN Constipation #30 08/17/23 12/22/23 Rx oral powder packet (Miralax) ea apple cider vinegar 1 tab PO DAILY 08/24/23 12/22/23 History cranberry 1 tab PO DAILY 08/24/23 12/22/23 History lisinopril 10 mg tablet 10 mg PO QAM ##0 09/15/23 12/22/23 History tizanidine 4 mg tablet 4 mg PO BID PRN Spasms 09/15/23 12/22/23 History acyclovir 400 mg tablet 400 mg PO BID 12/22/23 12/22/23 History oxycodone-acetaminophen 5 mg-325 1 tab PO Q6H PRN pain or fever 12/22/23 0 12/22/23 History mg tablet sulfamethoxazole 800 1 tab PO MoWeFr@0900 12/22/23 12/22/23 History mg-trimethoprim 160 mg tablet bacitracin 500 unit/gram topical 1 applic EXT BID 7 days #28 grams 12/26/23 Rx ointment ertapenem 1 gram solution for 1 g IV DAILY 7 days #7 ea 12/26/23 Rx injection Hospital Stay Data Consultations 12/23/23 07:55 Consult Infectious Diseases Routine 12/23/23 08:00 Consult Oncology Routine Diagnostic Imagining Performed Laboratory Results WBC 3.42 K/ul (4.8-10.8) L 12/26/23 06:59 RBC 3.22 M/uL (4.20-5.40) L 12/26/23 06:59 Hgb 10.2 g/dl (12.0-16.0) L 12/26/23 06:59 Hct 30.8 % (37.0-47.0) L 12/26/23 06:59 MCV 95.7 fL (80.0-100.0) 12/26/23 06:59 MCH 31.7 pg (25.0-34.0) 12/26/23 06:59 MCHC 33.1 g/dL (32.0-36.0) 12/26/23 06:59 RDW Std Deviation 63.7 fL (36.4-46.3) H 12/26/23 06:59 RDW Coeff of Lisset 18.4 % (11.5-14.5) H 12/26/23 06:59 Plt Count 157 K/uL (130-400) D 12/26/23 06:59 MPV 10.8 fL (9.4-12.4) 12/26/23 06:59 Immature Gran % (Auto) 6.4 % 12/26/23 06:59 Neut % (Auto) 69.9 % 12/26/23 06:59 Lymph % (Auto) 10.2 % 12/26/23 06:59 Stephens % (Auto) 11.7 % 12/26/23 06:59 Eos % (Auto) 0.9 % 12/26/23 06:59 Baso % (Auto) 0.9 % 12/26/23 06:59 Neut # (Auto) 2.39 K/uL (1.40-6.50) 12/26/23 06:59 Lymph # (Auto) 0.35 K/uL (1.20-3.40) L 12/26/23 06:59 Stephens # (Auto) 0.40 K/uL (0.11-0.59) 12/26/23 06:59 Eos # (Auto) 0.03 K/uL (0.00-0.50) 12/26/23 06:59 Baso # (Auto) 0.03 K/uL (0.00-0.20) 12/26/23 06:59 Immature Gran # (Auto) 0.22 K/uL (0.01-0.20) H 12/26/23 06:59 Absolute Nucleated RBC 0.03 K/uL (0.00-0.12) 12/26/23 06:59 Nucleated RBC % (auto) 0.9 % 12/26/23 06:59 Toxic Granulation 2+ 12/26/23 06:59 Dohle Bodies 1+ 12/24/23 06:48 Polychromasia 1+ 12/26/23 06:59 Anisocytosis Present 12/24/23 06:48 Tear Drop Cells 2+ 12/26/23 06:59 Ovalocytes 1+ 12/26/23 06:59 Sodium 138 mmol/L (136-145) 12/26/23 06:59 Potassium 4.4 mmol/L (3.5-5.1) 12/26/23 06:59 Chloride 101 mmol/L (98-107) 12/26/23 06:59 Carbon Dioxide 30 mmol/L (21-32) 12/26/23 06:59 Anion Gap 7 (3-11) 12/26/23 06:59 BUN 15 mg/dl (6-23) 12/26/23 06:59 Creatinine 0.43 mg/dl (0.6-1.2) L 12/26/23 06:59 Est Cr Clr Drug Dosing 164.5 ml/min 12/26/23 06:59 Est GFR ( Amer) 131.8 ml/min 12/26/23 06:59 Est GFR (Non-Af Amer) 113.7 ml/min 12/26/23 06:59 BUN/Creatinine Ratio 34.9 (10-20) H 12/26/23 06:59 Glucose 153 mg/dl (70-99(Fasting)) H 12/26/23 06:59 POC Glucose 201 mg/dl (70-99) H 12/26/23 11:42 Estimat Average Glucose 134 mg/dl 12/23/23 07:35 Hemoglobin A1c 6.3 % (4.5-5.6) H 12/23/23 07:35 Lactate 1.0 mmol/L (0.4-2.0) 12/22/23 20:27 Calcium 9.4 mg/dl (8.6-10.3) 12/26/23 06:59 Phosphorus 3.3 mg/dl (2.5-4.9) 12/23/23 07:35 Magnesium 1.9 mg/dl (1.7-2.4) 12/23/23 07:35 Total Bilirubin 0.4 mg/dl (0.2-1.0) 12/23/23 07:35 AST 25 U/L (13-39) 12/23/23 07:35 ALT 21 U/L (7-52) 12/23/23 07:35 Alkaline Phosphatase 55 U/L (34-104) 12/23/23 07:35 Total Protein 5.4 gm/dl (6.0-8.3) L 12/23/23 07:35 Albumin 3.4 gm/dl (3.4-5.0) 12/23/23 07:35 Globulin 2.0 gm/dl (2.5-4.0) L 12/23/23 07:35 Albumin/Globulin Ratio 1.7 (0.9-2) 12/23/23 07:35 Nasal Screen MRSA (PCR) Negative (Negative) 12/23/23 07:35 Anaplasma Smear See Comment 12/23/23 07:35 Babesia Smear See Comment 12/23/23 07:35 Lyme Disease Screen Negative (Negative) 12/22/23 20:27 Blood Type A Negative 12/23/23 15:29 Blood Type Recheck A Negative 12/23/23 15:57 Antibody Screen NEGATIVE 12/23/23 15:29 Crossmatch See Detail 12/23/23 15:29 Impressions Chest X-Ray 12/22/23 16:45 XR chest 1V portable HISTORY: 58 years-old Female admission COMPARISON: PET/CT 10/26/2023 TECHNIQUE: AP view of the chest FINDINGS: Cardiac silhouette is unchanged. Left subclavian [id number]-[id number] catheter. No pneumothorax, large pleural effusion, or pulmonary edema or lobar airspace consolidation. Spondylotic spurring of the spine. Osseous metastatic disease better seen on prior exam. IMPRESSION: No acute process. ACT 112: Negative or not required by law. The above report was generated using voice recognition software. It may contain grammatical, syntax or spelling errors. Electronically signed by: Gael Ha M.D. 12/22/2023 6:05 PM Lumbar Spine MRI 12/24/23 09:16 MR thoracic spine wo/w con, MR lumbar spine wo/w con HISTORY: 58 years-old Female back pain chronic back pain in a patient with history of lymphoma COMPARISON: PET/CT 10/26/2023, 08/23/2023 TECHNIQUE: Multiplanar multisequence MRI of the thoracic and lumbar spine was obtained with and without IV contrast. FINDINGS: THORACIC: The medication aide localizer images demonstrate no gross extraspinal abnormality. The study is motion degraded. Multifocal areas of marrow replacement again noted throughout the osseous structures with patchy enhancement most notably present at T7, T10, T11 and T12. This corresponds with the hypermetabolic lesion seen on the prior PET CTs. Minimal T10 wedge deformity is chronic. No acute pathologic fracture, subluxation or endplate erosions. No epidural tumor or fluid collections. No significant tumor involvement into the neural foramen identified on this study. Pathologic marrow replacement involves the right transverse process at T7 as well as a few medial ribs bilaterally. Mild to moderate multilevel intervertebral disc space narrowing, spondylitic spurring and facet arthrosis. Posterior disc osteophyte complex at T12-L1. There is no high-grade central canal or foraminal narrowing. There is at least mild narrowing of the left lateral recess at T12-L1. Mild multilevel neural foraminal narrowing. There is normal signal within the thoracic spinal cord. Conus medullaris terminates at T12-L1. Trace pleural effusions. LUMBAR: The medication aide localizer images demonstrate no gross extraspinal abnormality. Multifocal areas of marrow replacement with heterogeneous enhancement redemonstrated throughout the lumbar spine, sacrum and ilium imaged iliac bones. No acute pathologic fracturing. Chronic mild L3 compression deformity. The cauda equina appear unremarkable. Trace free pelvic fluid. No significant epidural tumor involvement. Anteflexed uterus appears heterogeneous. L1-L2: No central canal or foraminal narrowing. L2-L3: Moderate to severe disc space narrowing with circumferential disc osteophyte complex. Mild flattening of the ventral thecal sac without significant central canal or foraminal narrowing. L3-L4: No central canal or foraminal narrowing. L4-L5: No central canal or foraminal narrowing. L5-S1: No central canal or foraminal narrowing. IMPRESSION: 1. Multifocal marrow replacement compatible with the patient's history of lymphoma with osseous involvement has not significantly changed compared to the 10/26/2023 PET/CT. 2. No acute pathologic fracture, or significant epidural tumor involvement. 3. Chronic mild T10 wedge deformity without retropulsion. 4. No significant central canal or foraminal narrowing within the thoracic or lumbar spine. ACT 112: Negative or not required by law. The above report was generated using voice recognition software. It may contain grammatical, syntax or spelling errors. Electronically signed by: Gael Ha M.D. 12/24/2023 12:17 PM Thoracic Spine MRI 12/24/23 09:16 MR thoracic spine wo/w con, MR lumbar spine wo/w con HISTORY: 58 years-old Female back pain chronic back pain in a patient with history of lymphoma COMPARISON: PET/CT 10/26/2023, 08/23/2023 TECHNIQUE: Multiplanar multisequence MRI of the thoracic and lumbar spine was obtained with and without IV contrast. FINDINGS: THORACIC: The medication aide localizer images demonstrate no gross extraspinal abnormality. The study is motion degraded. Multifocal areas of marrow replacement again noted throughout the osseous structures with patchy enhancement most notably present at T7, T10, T11 and T12. This corresponds with the hypermetabolic lesion seen on the prior PET CTs. Minimal T10 wedge deformity is chronic. No acute pathologic fracture, subluxation or endplate erosions. No epidural tumor or fluid collections. No significant tumor involvement into the neural foramen identified on this study. Pathologic marrow replacement involves the right transverse process at T7 as well as a few medial ribs bilaterally. Mild to moderate multilevel intervertebral disc space narrowing, spondylitic spurring and facet arthrosis. Posterior disc osteophyte complex at T12-L1. There is no high-grade central canal or foraminal narrowing. There is at least mild narrowing of the left lateral recess at T12-L1. Mild multilevel neural foraminal narrowing. There is normal signal within the thoracic spinal cord. Conus medullaris terminates at T12-L1. Trace pleural effusions. LUMBAR: The medication aide localizer images demonstrate no gross extraspinal abnormality. Multifocal areas of marrow replacement with heterogeneous enhancement redemonstrated throughout the lumbar spine, sacrum and ilium imaged iliac bones. No acute pathologic fracturing. Chronic mild L3 compression deformity. The cauda equina appear unremarkable. Trace free pelvic fluid. No significant epidural tumor involvement. Anteflexed uterus appears heterogeneous. L1-L2: No central canal or foraminal narrowing. L2-L3: Moderate to severe disc space narrowing with circumferential disc osteophyte complex. Mild flattening of the ventral thecal sac without significant central canal or foraminal narrowing. L3-L4: No central canal or foraminal narrowing. L4-L5: No central canal or foraminal narrowing. L5-S1: No central canal or foraminal narrowing. IMPRESSION: 1. Multifocal marrow replacement compatible with the patient's history of lymphoma with osseous involvement has not significantly changed compared to the 10/26/2023 PET/CT. 2. No acute pathologic fracture, or significant epidural tumor involvement. 3. Chronic mild T10 wedge deformity without retropulsion. 4. No significant central canal or foraminal narrowing within the thoracic or lumbar spine. ACT 112: Negative or not required by law. The above report was generated using voice recognition software. It may contain grammatical, syntax or spelling errors. Electronically signed by: Gael Ha M.D. 12/24/2023 12:17 PM Pending Results Patient Have Any Pending Studies at Discharge: Yes Discharge Instructions Given to Patient (Per Discharging Provider) PLEASE REFER TO YOUR NEW MEDICATION LIST AND FOLLOW INSTRUCTIONS CAREFULLY. YOUR NEW MEDICATIONS INCLUDE: Ertapenem-antibiotic for urinary tract infection Please take a probiotic daily for at least 1 month. [employer] recommended. Please drink plenty of water. PLEASE CALL YOUR PRIMARY CARE PHYSICIAN OR RETURN TO THE ER IF WITH WORSENING OF SYMPTOMS, INCLUDING Problems with urination, abdominal/flank/back pain, nausea vomiting, fevers or chills, Diarrhea,etc. FOLLOW UP WITH PRIMARY CARE PHYSICIAN OUTLINED ABOVE. Follow-up with oncologist as scheduled. Total Time Total Time Spent Total Time Spent (In Minutes): 40 minutes
[2023-12-29 05:17] LABS: Babesia microti DNA Not Detected (Not Detected)
== END 2023-12-26 14:48 | disposition home health service (06) | DRG 689 ==
LOC: SUATTDRO 17:49 → 3W 17:49

== ENCOUNTER 2024-06-25 11:46 | Inpatient (IN) ==
[2024-06-25 13:00] LABS: Hematocrit (blood only) 34.1 % (37.0-47.0); Hemoglobin 11.8 g/dl (12.0-16.0); Mean Corpuscular Hemoglobin 32.7 pg (25.0-34.0); Mean Corpuscular Hgb Conc 34.6 g/dL (32.0-36.0); Mean Corpuscular Volume 94.5 fL (80.0-100.0); Mean Platelet Volume 8.7 fL (9.4-12.4); Platelet Count 186 K/uL (130-400); RDW Coefficient of Variation 13.5 % (11.5-14.5); RDW Standard Deviation 46.7 fL (36.4-46.3); Red Blood Count 3.61 M/uL (4.20-5.40); White Blood Count 1.08 K/ul (4.8-10.8)
[2024-06-25] MEDS: FAMOTIDINE 20MG IV PUSH 20 MG/5 ML SYR IV STA (13:02)
[2024-06-25] MEDS: ONDANSETRON INJ 2 MG/ML 2 ML VIAL IV STA (13:02)
[2024-06-25 13:03] LABS: Albumin Globulin Ratio 1.8 (0.9-2); Albumin Level 4.2 gm/dl (3.4-5.0); BUN Creatinine Ratio 35.3 (10-20); Bilirubin,Total 0.5 mg/dl (0.2-1.0); Calcium 9.5 mg/dl (8.6-10.3); Creatinine Clr Calc Pharmacy 125.9 ml/min; Globulin 2.3 gm/dl (2.5-4.0); Potassium 4.4 mmol/L (3.5-5.1); Total Protein 6.5 gm/dl (6.0-8.3)
[2024-06-25] MEDS: SODIUM CHLORIDE 0.9% 1,000 ML IV ONE (13:09)
[2024-06-25 13:24] LABS: Appearance Urine Clear (Clear); Bilirubin Urine Negative (Negative); Blood Urine Negative (Negative); Color Urine Yellow; Glucose Urine UA 3+ (Negative); Ketones Urine Negative (Negative); Leukocyte Esterase Urine Negative (Negative); Nitrite Urine Negative (Negative); Protein Urine Negative (Negative); Specific Gravity Urine 1.025 (1.000-1.030); Urobilinogen Urine Negative (Negative); pH Urine 5.5 (4.5-7.5)
[2024-06-25 13:51] LABS: ALC (manual) 0.51 K/uL (1.2-3.4); ANC (manual) 0.22 K/uL (1.4-6.5); Basophils # (manual) 0.02 K/uL (0-0.2); Basophils % (manual) 2 %; Eosinophils # (manual) 0.01 K/uL (0-0.50); Eosinophils % (manual) 1 %; Lymphocytes # (manual) 0.35 K/uL (1.2-3.4); Lymphocytes % (manual) 32 %; Monocytes # (manual) 0.32 K/uL (0.11-0.59); Monocytes % (manual) 30 %; Neutrophils # (manual) 0.22 K/uL (1.40-6.50); Neutrophils % (manual) 20 %; Reactive Lymphocytes # (manual) 0.16 K/uL; Reactive Lymphocytes % (manual) 15 %
--- NOTE | 2024-06-25 14:03 | XRay Report ---
XR chest 1V portable CLINICAL HISTORY: dizziness COMPARISON STUDY: Chest CT August 05, 2023. Chest radiograph December 22, 2023. PET/CT October 26, 2023. FINDINGS: Left subclavian [id number]-[id number] is in place. Lung volumes are normal. Lungs are clear. There is no pneumothorax or pleural effusion. Cardiac size is normal. Mediastinal contours are normal. Ther e is no evidence for pulmonary edema. IMPRESSION: No acute cardiopulmonary findings. ACT 112: Negative or not required by law. Electronically signed by: Mehdi Douglas M.D. 06/25/2024 2:01 PM
[2024-06-25 14:19] LABS: Bilirubin Direct 0.1 mg/dl (0-0.2); Magnesium 1.4 mg/dl (1.7-2.4)
[2024-06-25 14:22] LABS: Adenovirus PCR Not Detected (NotDetected); Bordetella parapertussis PCR Not Detected (NotDetected); Bordetella pertussis PCR Not Detected (NotDetected); Chlamydia pneumoniae PCR Not Detected (NotDetected); Coronavirus 229E PCR Not Detected (NotDetected); Coronavirus CoV-2 (COVID19)PCR Not Detected (NotDetected); Coronavirus HKU1 PCR Not Detected (NotDetected); Coronavirus NL63 PCR Not Detected (NotDetected); Coronavirus OC43PCR Not Detected (NotDetected); Human Metapneumovirus PCR Not Detected (NotDetected); Influenza A PCR Not Detected (NotDetected); Influenza B PCR Not Detected (NotDetected); Mycoplasma pneumoniae PCR Not Detected (NotDetected); Parainfluenza Virus 1 PCR Not Detected (NotDetected); Parainfluenza Virus 2 PCR Not Detected (NotDetected); Parainfluenza Virus 3 PCR Not Detected (NotDetected); Parainfluenza Virus 4 PCR Not Detected (NotDetected); Respiratory Syncytial VirusPCR Not Detected (NotDetected); Rhinovirus/Enterovirus PCR Not Detected (NotDetected)
[2024-06-25 14:25] LABS: Troponin I High Sensitivity 7.7 pg/ml (0-14)
[2024-06-25] MEDS ORDERED: VANCOMYCIN CONSULT ACTIVE PRN ×2 (14:30→15:44)
--- NOTE | 2024-06-25 14:41 | Emergency Department Note ---
Impression & Plan Facial cellulitis, Neutropenia, Hypomagnesemia, Intractable nausea and vomiting ED Provider Note NAME: SOCORRO VALENZUELA AGE: 59 SEX: F : 1965 ARRIVES VIA: Walk-In INFORMANT: Patient ED PROVIDER(S): Mihir Lentz MD CHIEF COMPLAINT: Facial pain, redness and swelling. Intractable nausea and vomiting PLAN: Disposition: Admit MEDICAL DECISION MAKING: The patient is a pleasant 59-year-old woman with a past medical history of CLL now in remission and no longer on chemotherapy who presents to the emergency department via walk-in for evaluation of worsening pain, redness and swelling of the left side of her face after noticing an ingrown hair/berger which she attempted to pop on her own and subsequently developed redness, swelling and pain. She denies any fevers but feels her face is hot. She reports developing nausea and dizziness yesterday with vomiting that began today. She reports a history of cysts on her scalp which were positive for MRSA per her report. She denies any cough, congestion, chest pain, shortness of breath, diarrhea. On evaluation the patient is uncomfortable but no distress, afebrile stable vital signs. She appears clinically dry. She exhibits erythema, warmth and swelling of the left maxillary/preauricular region with punctate vesicle which was easily unroofed and with the patient's permission was expressed where a moderate amount of purulent drainage resulted and was cultured. There is no crepitus. WBC 1K with ANC of 0.22 consistent with neutropenia and infection. H/H similar to prior range values. Platelets 1 86K, within normal limits. Chemistry without metabolic acidosis. Magnesium 1.4 with IV repletion provided. LFTs are unremarkable. High-sensitivity troponin 7.7, within normal limits. Lipase is normal. Procalcitonin is not elevated. UA without evidence of infection. Respiratory BioFire was negative. CT of the head, CT of the face as well as abdomen pelvis were obtained. Findings are notable for left-sided facial cellulitis and suggestion of parotitis with adjacent stranding but no drainable fluid collection/abscess. CT of the abdomen pelvis was negative for acute intra-abdominal process. Moderate retained stool is described. Given the patient's neutropenia with rapidly worsening facial cellulitis she does agree plan for admission and further management. Blood cultures were obtained and empiric treatment initiated with IV cefepime and vancomycin. Topical Bactroban also applied. Case was discussed with Jessi GUPTA with Dr. Preston, [facility] hospitalist, who will evaluate the patient for admission. Further management per admitting team. Triage Nursing notes reviewed and agree them. Prior/external medical records reviewed Vital Signs: reviewed Differential diagnosis: Cellulitis, abscess, MRSA infection, DVT, necrotizing fasciitis, dermatitis, drug eruption, allergic reaction, as well as other pathologies. ER treatment provided: See below. Diagnostics interpreted by me: ECG: NSR, 94 bpm, no ectopy, no overt ST elevation or depression. Cardiac Monitoring: An order for continuous cardiac monitoring was placed and demonstrated NSR, 94 bpm, no ectopy Laboratory studies: See below Imaging studies: See below Consultation(s): [facility]: The patient is a pleasant 59-year-old woman with a past medical history of CLL now in remission and no longer on chemotherapy who presents to the emergency department via walk-in for evaluation of worsening pain, redness and swelling of the left side of her face after noticing an ingrown hair/berger which she attempted to pop on her own and subsequently developed redness, swelling and pain. She denies any fevers but feels her face is hot. She reports developing nausea and dizziness yesterday with vomiting that began today. She reports a history of cysts on her scalp which were positive for MRSA per her report. She denies any cough, congestion, chest pain, shortness of breath, diarrhea. ROS: See above HPI for pertinent positives & negatives. A total of 10 systems reviewed and were otherwise negative. VITALS:See Below PHYSICAL EXAMINATION: GENERAL: Awake, alert, uncomfortable-appearing, in no distress HENT: Normocephalic, atraumatic. Erythema warmth and swelling of the left maxillary/preauricular region with punctate vesicle which was easily unroofed and with the patient's permission was expressed where a moderate amount of purulent drainage resulted and was cultured. There is no crepitus. Oropharynx with dry mucous membranes and otherwise unremarkable. EYES: Normal conjunctiva. Sclera non-icteric. EOMI. No nystamgus. PEARRL. . NECK: Supple. No nuchal rigidity. FROM. No JVD. RESPIRATORY: Clear to auscultation. CARDIAC: Regular rate, normal rhythm. Extremities warm and well perfused. Pulses equal. ABDOMEN: Soft, non-distended. No tenderness to palpation. No rebound or guarding. No masses. MUSCULOSKELETAL: Chest examination reveals no tenderness. The back is symmetrical on inspection without obvious abnormality. There is no CVA tenderness to palpation. No joint edema. LOWER EXTREMITIES: Calves are equal size bilaterally and non-tender. No edema. No discoloration. NEURO: Normal sensorium. No sensory or motor deficits noted. SKIN: No rash or jaundice noted. Mihir Lentz MD Past Med/Surg History Problem List Intractable nausea and vomiting (Acute) Hypomagnesemia (Acute) Neutropenia (Acute) Facial cellulitis (Acute) Neutropenia Facial cellulitis E coli infection UTI (urinary tract infection) Generalized weakness Cellulitis of chest wall Febrile neutropenia History of ESBL E. coli infection Complicated UTI (urinary tract infection) B-cell lymphoma (Chronic 08/05/23) Asthma Splenic mass Lymphadenopathy Mass of buttock (Acute) Lumbar radiculopathy (Acute) Back pain (Acute) UTI (urinary tract infection) Renal calculi Lymphoma dx 2023 Lumbar radicular pain DM2 (diabetes mellitus, type 2) (Chronic) HTN (hypertension) (Chronic) "pt only on meds for her kidneys and diabetes, no high blood pressure" HLD (hyperlipidemia) (Chronic) GERD (gastroesophageal reflux disease) (Chronic) Hypothyroidism (Chronic) Depression (Chronic) Delivered by section (Chronic) x2 H/O hernia repair (Chronic) 1996,1998,2007 H/O dilation and curettage (Chronic) H/O tubal ligation (Chronic) Hx of tonsillectomy (Chronic) Medical History FELICITY (obstructive sleep apnea) Nausea and vomiting after administration of anesthetic agent 2005, after , "but had eaten prior to procedure, procedure was an emergency, no issues since then" History of frequent urinary tract infections has had 4 since 02/2023 Hx of renal calculi Hx of migraines 32 years ago, had "migraine induced seizure, no seizures since then." Surgical History Port-A-Cath in place (08/30/23) Insertion Access Port with Fluoroscopy, Left subclavian (Left) - Parker Marie, S/P cystoscopy with ureteral stent placement w/laser destruction of kidney stone Hx of colonoscopy Family History Mother Cancer skin cancer Diabetes Hypertension Brother Colorectal cancer Hypertension Father Hypertension Other Mass of buttock Social History Smoking Status: Former smoker Tobacco Type: Cigarettes Second Hand Exposure: No; Do You Dip or Chew Tobacco: No; Hx Alcohol Use: Yes Alcohol type: other Alcohol type Comment: wine coolers Hx Substance Use: No Preferred Language: Indonesian Communication Ability: Effective 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 Beliefs That Will Affect Care: None Current Living Situation: Spouse Current Living Situation Comment: , son, grandchild current occupational status: other 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 Other Information That Helps Us Care for You: No Feels Safe at Home: Yes Safety Concerns: Feels Safe At This Time Assistive Devices: Glasses Allergies Allergies Allergy/AdvReac Type Severity Reaction Status Date / Time adhesive tape Allergy Mild Rash/Itchin Verified 06/25/24 15:52 ess Home Meds Home Medications Medication Instructions Recorded Confirmed metformin 1,000 mg tablet 1,000 mg PO BID ##0 09/21/09 06/25/24 aspirin 81 mg tablet,delayed 81 mg PO QAM ##0 08/15/13 06/25/24 release atorvastatin 20 mg tablet (Lipitor) 20 mg PO HS #0 tabs 08/15/13 06/25/24 citalopram 20 mg tablet 20 mg PO QAM ##0 08/15/13 06/25/24 alendronate 70 mg tablet 70 mg PO Q7D 08/05/23 06/25/24 empagliflozin 25 mg tablet 25 mg PO QAM 08/05/23 06/25/24 (Jardiance) levothyroxine 150 mcg tablet 150 mcg PO QAM 08/05/23 06/25/24 omeprazole 40 mg capsule,delayed 40 mg PO QAM 08/05/23 06/25/24 release semaglutide 1 mg/dose (4 mg/3 mL) 1 mg subcut Q7D 08/05/23 06/25/24 subcutaneous pen injector (Ozempic) apple cider vinegar 500 mg tablet 500 mg PO QAM ##0 08/24/23 06/25/24 cranberry 500 mg capsule 500 mg PO QAM ##0 08/24/23 06/25/24 lisinopril 10 mg tablet 10 mg PO QAM ##0 09/15/23 06/25/24 tizanidine 4 mg tablet 4 mg PO BID PRN Spasms 09/15/23 06/25/24 oxycodone-acetaminophen 5 mg-325 1 tab PO Q6H PRN pain or fever 12/22/23 06/25/24 mg tablet insulin degludec 100 unit/mL (3 34 unit subcut QAM 02/15/24 06/25/24 mL) subcutaneous pen (Tresiba FlexTouch U-100 insulin) nitrofurantoin 0 mg PO DAILY 02/15/24 06/25/24 monohydrate/macrocrystals 100 mg capsule (Macrobid) solifenacin 10 mg tablet (Vesicare) 10 mg PO QAM 02/15/24 06/25/24 diphenhydramine HCl 25 mg capsule 25 mg PO HS 06/25/24 06/25/24 (Benadryl) fluoride (sodium) 1.1 % dental 1 applic dental DAILY 06/25/24 06/25/24 paste gabapentin 300 mg capsule 0 mg PO BID 06/25/24 06/25/24 melatonin 10 mg tablet 20 mg PO HS 06/25/24 06/25/24 Previous Rx's Medication Instructions Recorded polyethylene glycol 3350 17 gram 17 g PO DAILY PRN Constipation #30 08/17/23 oral powder packet (Miralax) ea Results & Data (ED) Vital Signs Vital Signs - 24 hr 06/25/24 11:48 06/25/24 12:48 06/25/24 13:09 Temperature 36.9 C Temperature Source Oral Pulse Rate 98 H 98 H Pulse Rate [Left Apical] Pulse Rate [Right] 94 H Pulse Rate from SpO2 Sensor Respiratory Rate 18 16 10 L Respiratory Effort / Characteristics Non-Labored Spontaneous Respiratory Depth Normal Normal Respiratory Pattern Regular Blood Pressure 142/85 H 123/73 Blood Pressure [Right Arm] 121/70 Blood Pressure Mean 104 89 Blood Pressure Mean [Right Arm] 87 Pulse Oximetry 99 95 Oxygen Delivery Method Room Air Sepsis Recent Fever Within 48 Hours No Sepsis New/Unexplained Change in Mental Status N/A Sepsis Action Taken by Nursing No Action Required 06/25/24 13:12 06/25/24 15:09 Temperature Temperature Source Pulse Rate 92 H Pulse Rate [Left Apical] 99 H Pulse Rate [Right] Pulse Rate from SpO2 Sensor 92 H Respiratory Rate 14 18 Respiratory Effort / Characteristics Non-Labored Spontaneous Respiratory Depth Normal Respiratory Pattern Regular Blood Pressure 117/72 Blood Pressure [Right Arm] 123/73 Blood Pressure Mean 87 Blood Pressure Mean [Right Arm] 89 Pulse Oximetry 95 95 Oxygen Delivery Method Room Air Sepsis Recent Fever Within 48 Hours Sepsis New/Unexplained Change in Mental Status Sepsis Action Taken by Nursing Laboratory Data Attestation: I reviewed the patient's lab results. 06/25/24 12:28 06/25/24 12:28 Lab Results 06/25/24 06/25/24 06/25/24 Range/Units 12:28 13:03 13:12 WBC 1.08 L (4.8-10.8) K/ul RBC 3.61 L (4.20-5.40) M/uL Hgb 11.8 L (12.0-16.0) g/dl Hct 34.1 L (37.0-47.0) % MCV 94.5 (80.0-100.0) fL MCH 32.7 (25.0-34.0) pg MCHC 34.6 (32.0-36.0) g/dL RDW Std Deviation 46.7 H (36.4-46.3) fL RDW Coeff of Lisset 13.5 (11.5-14.5) % Plt Count 186 (130-400) K/uL MPV 8.7 L (9.4-12.4) fL Neutrophils % (Manual) 20 % Lymphocytes % (Manual) 32 % Reactive Lymphs % (Man) 15 % Monocytes % (Manual) 30 % Eosinophils % (Manual) 1 % Basophils % (Manual) 2 % Neutrophils # (Manual) 0.22 L (1.40-6.50) K/uL Total Absolute Neuts 0.22 L* (1.4-6.5) K/uL Lymphocytes # (Manual) 0.35 L (1.2-3.4) K/uL Reactive Lymphs # 0.16 K/uL Total Abs Lymphocytes 0.51 L (1.2-3.4) K/uL Monocytes # (Manual) 0.32 (0.11-0.59) K/uL Eosinophils # (Manual) 0.01 (0-0.50) K/uL Basophils # (Manual) 0.02 (0-0.2) K/uL Sodium 135 L (136-145) mmol/L Potassium 4.4 (3.5-5.1) mmol/L Chloride 99 (98-107) mmol/L Carbon Dioxide 28 (21-32) mmol/L Anion Gap 8 (3-11) BUN 18 (6-23) mg/dl Creatinine 0.51 L (0.6-1.2) mg/dl Est Cr Clr Drug Dosing 125.9 ml/min eGFR 108.81 BUN/Creatinine Ratio 35.3 H (10-20) Glucose 137 H (70-99(Fasting)) mg/dl Calcium 9.5 (8.6-10.3) mg/dl Magnesium 1.4 L (1.7-2.4) mg/dl Total Bilirubin 0.5 (0.2-1.0) mg/dl Direct Bilirubin 0.1 (0-0.2) mg/dl AST 12 L (13-39) U/L ALT 11 (7-52) U/L Alkaline Phosphatase 60 (34-104) U/L Troponin I High Sens 7.7 (0-14) pg/ml Total Protein 6.5 (6.0-8.3) gm/dl Albumin 4.2 (3.4-5.0) gm/dl Globulin 2.3 L (2.5-4.0) gm/dl Albumin/Globulin Ratio 1.8 (0.9-2) Lipase 19 (11-82) U/L Urine Color Yellow Urine Appearance Clear (Clear) Urine pH 5.5 (4.5-7.5) Ur Specific Maupin 1.025 (1.000-1.030) Urine Protein Negative (Negative) Urine Glucose (UA) 3+ H (Negative) Urine Ketones Negative (Negative) Urine Blood Negative (Negative) Urine Nitrite Negative (Negative) Urine Bilirubin Negative (Negative) Urine Urobilinogen Negative (Negative) Ur Leukocyte Esterase Negative (Negative) Adenovirus (PCR) Not Detected (NotDetected) B. pertussis DNA (PCR) Not Detected (NotDetected) B.parapertussis DNA PCR Not Detected (NotDetected) C. pneumoniae DNA (PCR) Not Detected (NotDetected) Coronavirus OC43 (PCR) Not Detected (NotDetected) Coronavirus HKU1 (PCR) Not Detected (NotDetected) Coronavirus 229E (PCR) Not Detected (NotDetected) SARS-CoV-2 (PCR) Not Detected (NotDetected) Coronavirus NL63 (PCR) Not Detected (NotDetected) Human Metapneumovir PCR Not Detected (NotDetected) Influenza Type A (PCR) Not Detected (NotDetected) Influenza Type B (PCR) Not Detected (NotDetected) M. pneumoniae (PCR) Not Detected (NotDetected) Parainfluenza 1 (PCR) Not Detected (NotDetected) Parainfluenza 2 (PCR) Not Detected (NotDetected) Parainfluenza 3 (PCR) Not Detected (NotDetected) Parainfluenza 4 (PCR) Not Detected (NotDetected) RSV (PCR) Not Detected (NotDetected) Entero/Rhino (PCR) Not Detected (NotDetected) Administered Medications Diphenhydramine HCl (Diphenhydramine Capsule 25 Mg Cap) 25 mg PO HS [facility] Stop: 07/25/24 20:59 Last Admin: 06/25/24 20:07 Dose: 25 mg Documented By: MARYCHUY Gabapentin (Gabapentin 300 Mg Cap) 300 mg PO BID [facility] Stop: 07/25/24 20:59 Last Admin: 06/25/24 20:08 Dose: 300 mg Documented By: MARYCHUY Heparin Sodium (Porcine) (Heparin Sod 5,000 Unit/0.5 Ml Vial) 5,000 units SQ Q12 [facility] Stop: 07/25/24 20:59 Last Admin: 06/25/24 20:07 Dose: 5,000 units Documented By: MARYCHUY Piperacillin Sod/Tazobactam Sod (Zosyn) 4.5 gm in 100 mls @ 25 mls/hr IV Q8H [facility]; Protocol Stop: 07/02/24 21:59 Last Admin: 06/25/24 22:50 Dose: 25 mls/hr Documented By: MARYCHUY Sodium Chloride (Nss) 1,000 mls @ 80 mls/hr IV .[id number] JOHN Stop: 06/26/24 16:59 Last Admin: 06/25/24 16:05 Dose: 80 mls/hr Documented By: WILLIAM Vancomycin HCl 1,500 mg/ (Sodium Chloride) 530 mls @ 200 mls/hr IV Q12H [facility] Stop: 07/02/24 21:59 Last Admin: 06/25/24 22:49 Dose: 200 mls/hr Documented By: MARYCHUY Insulin Aspart (Insulin Aspart Per Unit Charge) 0 units SC ACHS JOHN Stop: 07/25/24 18:03 Last Admin: 06/25/24 22:46 Dose: 2 units Documented By: MARYCHUY Co-signed By: SHAHEEN Admin: 06/25/24 20:07 Dose: 4 units Documented By: MARYCHUY Co-signed By: SHAHEEN Morphine Sulfate (Morphine Sulfate 2 Mg/Ml Carp) 1 mg IV Q3H PRN PRN Reason: Pain Stop: 07/09/24 16:23 Last Admin: 06/25/24 22:46 Dose: 1 mg Documented By: MARYCHUY Discontinued Medications Dexamethasone Sodium Phosphate (DexamethasonePf 10 Mg/Ml Vial) 10 mg IV NOW ONE Stop: 06/25/24 14:31 Last Admin: 06/25/24 15:16 Dose: 10 mg Documented By: CANELO Sodium Chloride (Nss) 1,000 mls @ 999 mls/hr IV .Q1H1M ONE Stop: 06/25/24 13:57 Last Infusion: 06/25/24 14:20 Dose: Infused Documented By: Admin: 06/25/24 13:09 Dose: 999 mls/hr Documented By: TOMAS Famotidine (Pepcid 20mg Iv Push) 20 mg in 5 mls @ 2.5 mls/min IV NOW STA Stop: 06/25/24 12:59 Last Admin: 06/25/24 13:02 Dose: 2.5 mls/min Documented By: TOMAS Cefepime HCl (Maxipime 2000mg) 2,000 mg in 20 mls @ 5 mls/min IV NOW STA; Protocol Stop: 06/25/24 14:33 Last Admin: 06/25/24 15:16 Dose: 5 mls/min Documented By: CANELO Vancomycin HCl 2,000 mg/ (Sodium Chloride) 540 mls @ 200 mls/hr IV NOW ONE Stop: 06/25/24 17:11 Last Infusion: 06/25/24 18:26 Dose: Infused Documented By: Admin: 06/25/24 15:15 Dose: 200 mls/hr Documented By: CANELO Acetaminophen (Ofirmev) 1,000 mg in 100 mls @ 400 mls/hr IV NOW STA Stop: 06/25/24 14:44 Last Infusion: 06/25/24 15:32 Dose: Infused Documented By: Admin: 06/25/24 15:15 Dose: 400 mls/hr Documented By: CANELO Magnesium Sulfate/Dextrose (Magnesium Sulfate / D5w) 1 gm in 100 mls @ 100 mls/hr IV Q1H JOHN Stop: 06/25/24 16:35 Last Infusion: 06/25/24 18:27 Dose: Infused Documented By: Admin: 06/25/24 16:48 Dose: 100 mls/hr Documented By: Infusion: 06/25/24 16:15 Dose: Infused Documented By: Admin: 06/25/24 15:15 Dose: 100 mls/hr Documented By: CANELO Piperacillin Sod/Tazobactam Sod (Zosyn) 4.5 gm in 100 mls @ 200 mls/hr IV ONE STA; Protocol Stop: 06/25/24 16:21 Last Infusion: 06/25/24 16:35 Dose: Infused Documented By: Admin: 06/25/24 16:05 Dose: 200 mls/hr Documented By: WILLIAM Ioversol (Optiray 320 100ml) 93 ml IV ONCE ONE Stop: 06/25/24 15:01 Last Admin: 06/25/24 15:00 Dose: 93 ml Documented By: XIN Morphine Sulfate (Morphine Sulfate 4 Mg/Ml 1 Ml Carp\\Vial) 4 mg IV NOW STA Stop: 06/25/24 14:31 Last Admin: 06/25/24 15:40 Dose: 4 mg Documented By: CANELO Mupirocin (Mupirocin 2% Oint 22 Gm Tube) 1 appln EXT NOW STA Stop: 06/25/24 14:34 Last Admin: 06/25/24 15:16 Dose: 1 appln Documented By: CANELO Ondansetron HCl (Ondansetron Inj 2 Mg/Ml 2 Ml Vial) 4 mg IV NOW STA Stop: 06/25/24 12:59 Last Admin: 06/25/24 13:02 Dose: 4 mg Documented By: [facility] Imaging Data Radiologist's Impression: Chest X-Ray 06/25/24 12:59 XR chest 1V portable CLINICAL HISTORY: dizziness COMPARISON STUDY: Chest CT August 05, 2023. Chest radiograph December 22, 2023. PET/CT October 26, 2023. FINDINGS: Left subclavian Gjujne-e-Rfee is in place. Lung volumes are normal. Lungs are clear. There is no pneumothorax or pleural effusion. Cardiac size is normal. Mediastinal contours are normal. There is no evidence for pulmonary edema. IMPRESSION: No acute cardiopulmonary findings. ACT 112: Negative or not required by law. Electronically signed by: Mehdi Douglas M.D. 06/25/2024 2:[address] 06/25/24 14:33 CT facial bones w con CLINICAL HISTORY: left facial abscess neutropenia, SINGER COMPARISON STUDY: None TECHNIQUE: Helical axial CT of the face was performed. Optiray 320 intravenously. Sagittal and coronal reconstructions were done. Total exam DLP 2862.54 FINDINGS: There is no evidence of a drainable abscess. There is a left hemifacial cellulitis with soft tissue opacity and inflammatory stranding in the subcutaneous tissues and fat over the left cheek. There is also inflammatory stranding involving the superficial lobe of the left parotid gland which is contiguous with the soft tissue changes. The submandibular glands are unremarkable. The epiglottis is not swollen. The prevertebral soft tissues are negative. No significant adenopathy. There is a small air-fluid level in the left maxillary sinus and minimal mucosal thickening in the sphenoid sinus.. IMPRESSION: No evidence of abscess. Left facial cellulitis and parotiditis Mild changes of sinusitis in the left maxillary antrum and sphenoid sinus. ACT 112: Negative or not required by law. Electronically signed by: Misty Hinojosa M.D. 06/25/2024 3:[address] 06/25/24 14:33 CT OF THE HEAD WITHOUT CONTRAST CLINICAL HISTORY: left facial abscess neutropenia, headache COMPARISON STUDY: MRI of the brain August 05, 2023. TECHNIQUE: Helical axial images of the head were obtained without IV contrast. Automated exposure control was utilized for the study. A dose lowering technique was utilized adhering to the principles of ALARA. FINDINGS: No acute intracranial hemorrhage, midline shift or mass effect is present. The ventricular system is unremarkable. The basal cisterns are patent. No extra-axial collections are present. There are no findings to suggest acute dural sinus thrombosis or acute territorial infarct. The mastoid air cells are clear. There is mild sinus mucosal thickening. Extensive left facial stranding is noted with associated skin thickening. The facial bone CT will be reported separately. No fluid collection is identified. There is no soft tissue gas. IMPRESSION: 1. No acute intracranial findings. 2. Left facial cellulitis better depicted on the facial bone CT. No fluid collection to suggest abscess. ACT 112: Negative or not required by law. Electronically signed by: Mehdi Douglas M.D. 06/25/2024 3:21 PM Abdomen/Pelvis CT 06/25/24 14:[address] WITH IV CONTRAST CT DOSE: 2862.54 mGy.cm HISTORY: n/v, neutropenia TECHNIQUE: Multiaxial CT images of the abdomen and pelvis were performed following the IV administration of 90 cc of Optiray, A dose lowering technique was utilized adhering to the principles of ALARA. COMPARISON STUDY: 02/15/2024 FINDINGS: ABDOMEN: Liver, gallbladder, spleen, pancreas, and adrenal glands are unremarkable. Stable tiny cyst at the right kidney. There are atherosclerotic calcifications. No abdominal aortic aneurysm. Kidneys show no hydronephrosis or calculi. Pelvis: Urinary bladder is mildly distended. Uterus and adnexa are grossly unremarkable. There is moderate retained stool. No bowel inflammation or obstruction. No free fluid, free air, or abscess. No enlarged adenopathy. Osseous structures: There is stable mild height loss at the L3 vertebral body. No acute osseous findings. IMPRESSION: No acute findings. ACT 112: Negative or not required by law. The above report was generated using voice recognition software. It may contain grammatical, syntax or spelling errors. Electronically signed by: Kyle Landers M.D. 06/25/2024 3:18 PM Discharge Plan Visit Data Chief Complaint: Illness Stated Complaint: VOMITING, CYST LT FACE/HEAD TIGHT, NAUSEA, DIZZY ED Provider: Mihir Lentz Discharge Problem: Facial cellulitis, Neutropenia, Hypomagnesemia, Intractable nausea and vomiting Patient Disposition: Admitted As Inpatient Discharge Instructions Interventions: ED Discharge Assessment Last Done: 06/25/24 17:47 Discharge Problem: Neutropenia Qualifiers: Neutropenia type: unspecified Qualified Code(s): D70.9 - Neutropenia, unspecified
--- NOTE | 2024-06-25 14:56 | Electrocardiogram Report ---
Test Reason : Blood Pressure : */* mmHG Vent. Rate : 94 BPM Atrial Rate : 94 BPM P-R Int : 148 ms QRS Dur : 84 ms QT Int : 382 ms P-R-T Axes : 54 59 43 degrees QTcB Int : 477 ms Normal sinus rhythm Low voltage QRS Borderline ECG When compared with ECG of 23-Dec-2023 07:29, Questionable change in QRS axis Confirmed by Pepe Morales ([id number]) on 06/25/2024 2:55:40 PM Referred By: REFERRED SELF Confirmed By: Pepe Morales
[2024-06-25] MEDS: OPTIRAY 320 100ml IV ONE (15:00)
[2024-06-25] MEDS: ACETAMINOPHEN 1,000 MG/100 ML VIAL IV STA (15:15)
[2024-06-25] MEDS: MAGNESIUM SULFATE / D5W 1 GM/100 ML BAG IV SCH (15:15)
[2024-06-25] MEDS: VANCOMYCIN HCL 2,000 MG in SODIUM CHLORIDE 0.9% 500 ML IV ONE (15:15)
[2024-06-25] MEDS: MUPIROCIN 2% OINT 22 GM TUBE EXT STA (15:16)
[2024-06-25] MEDS: dexAMETHasone**PF** 10 MG/ML VIAL IV ONE (15:16)
[2024-06-25] MEDS: CEFEPIME 2000MG 2,000 MG/20 ML SYR IV STA (15:16)
--- NOTE | 2024-06-25 15:19 | CT Scan Report ---
ABDOMEN AND PELVIS CT WITH IV CONTRAST CT DOSE: 2862.54 mGy.cm HISTORY: n/v, neutropenia TECHNIQUE: Multiaxial CT images of the abdomen and pelvis were performed following the IV administrat ion of 90 cc of Optiray, A dose lowering technique was utilized adhering to the principles of ALARA. COMPARISON STUDY: 02/15/2024 FINDINGS: ABDOMEN: Liver, gallbladder, spleen, pancreas, and adrenal glands are unremarkable. Stable tiny cyst at the right kidney. There are atherosclerotic calcifications. No abdominal aortic aneurysm. Kidneys show no hydronephrosis or calculi. Pelvis: Urinary bladder is mildly distended. Uterus and adnexa are grossly unremarkable. There is mod erate retained stool. No bowel inflammation or obstruction. No free fluid, free air, or abscess. No e nlarged adenopathy. Osseous structures: There is stable mild height loss at the L3 vertebral body. No acute osseous findi ngs. IMPRESSION: No acute findings. ACT 112: Negative or not required by law. The above report was generated using voice recognition software. It may contain grammatical, syntax o r spelling errors. Electronically signed by: Kyle Landers M.D. 06/25/2024 3:18 PM
--- NOTE | 2024-06-25 15:22 | CT Scan Report ---
CT OF THE HEAD WITHOUT CONTRAST CLINICAL HISTORY: left facial abscess neutropenia, headache COMPARISON STUDY: MRI of the brain August 05, 2023. TECHNIQUE: Helical axial images of the head were obtained without IV contrast. Automated exposure con trol was utilized for the study. A dose lowering technique was utilized adhering to the principles o f ALARA. FINDINGS: No acute intracranial hemorrhage, midline shift or mass effect is present. The ventricular system is unremarkable. The basal cisterns are patent. No extra-axial collections are present. There are no findings to suggest acute dural sinus thrombosis or acute territorial infarct. The mastoid air cells are clear. There is mild sinus mucosal thickening. Extensive left facial stranding is noted wi th associated skin thickening. The facial bone CT will be reported separately. No fluid collection is identified. There is no soft tissue gas. IMPRESSION: 1. No acute intracranial findings. 2. Left facial cellulitis better depicted on the facial bone CT. No fluid collection to suggest absce ss. ACT 112: Negative or not required by law. Electronically signed by: Mehdi Douglas M.D. 06/25/2024 3:21 PM
--- NOTE | 2024-06-25 15:29 | CT Scan Report ---
CT facial bones w con CLINICAL HISTORY: left facial abscess neutropenia, SINGER COMPARISON STUDY: None TECHNIQUE: Helical axial CT of the face was performed. Optiray 320 intravenously. Sagittal and vasquez l reconstructions were done. Total exam DLP 2862.54 FINDINGS: There is no evidence of a drainable abscess. There is a left hemifacial cellulitis with sof t tissue opacity and inflammatory stranding in the subcutaneous tissues and fat over the left cheek. There is also inflammatory stranding involving the superficial lobe of the left parotid gland which i s contiguous with the soft tissue changes. The submandibular glands are unremarkable. The epiglottis is not swollen. The prevertebral soft tissu es are negative. No significant adenopathy. There is a small air-fluid level in the left maxillary sinus and minimal mucosal thickening in the sp henoid sinus.. IMPRESSION: No evidence of abscess. Left facial cellulitis and parotiditis Mild changes of sinusitis in the left maxillary antrum and sphenoid sinus. ACT 112: Negative or not required by law. Electronically signed by: Misty Hinojosa M.D. 06/25/2024 3:28 PM
[2024-06-25] MEDS: MoRPHine SULFATE 4 MG/ML 1 ML CARP\\VIAL IV STA (15:40)
[2024-06-25] MEDS ORDERED: ACETAMINOPHEN 325 MG TAB PO PRN (15:44)
--- NOTE | 2024-06-25 15:57 | History & Physical Report ---
Date of Service June 25, 2024 Assessment & Plan (1) B-cell lymphoma: (2) DM2 (diabetes mellitus, type 2): (3) HTN (hypertension): (4) HLD (hyperlipidemia): (5) Hypothyroidism: (6) Depression: (7) FELICITY (obstructive sleep apnea): (8) Facial cellulitis: (9) Neutropenia: Plan The patient is a 59-year-old female with a past medical history of CLL, hypothyroidism, DM2, depression, HLD, HTN who presents to the ED on 06/25/2024 with complaints of nausea/vomiting/dizziness/headaches x 24 hours. Found to have left facial cellulitis and severe neutropenia L facial cellulitis/parotiditis: Noted on facial CT, continue IV Vanco/Zosyn for anaerobic coverage Blood cultures pending, no abscess identified on CT -I & D performed in ER - cx sent Local wound care, consider ID consult once cultures result Check lactic acid/procalcitonin Severe neutropenia New R hip mass History CLLin remission No longer on chemotherapy, reportedly in remission Neutropenia new over the past month - pt also reports a new r hip mass (2 mos ago) -Planned for f/u with oncology in 08/21 for repeat PET scan -08/31/2023. Cycle 1 day 1 R-CHOP plus polatuzumab. -12/14/2023. Cycle 6-day 1 R-CHO plus polatuzumab. -01/04/2024-01/25/2024. Maintenance Rituxan x 2 cycles. -03/26/2024. S/p of consolidation radiation therapy to the right pelvis. Hx DM2: Takes Ozempic/Jardiance/metformin, hold oral hypoglycemics SSI/4 times daily BGM, consult glycemic pharmacy Hx hypothyroidism: Continue levothyroxine Hx HTN/HLD: -Continue lisinopril/lipitor/aspirin A total of 60 minutes was spent on chart review/facilitating plan of care/reviewing diagnostic data/discussion with consultants Full code DVT prophylaxis: Heparin sub-q History of Present Illness Chief Complaint: Nausea/vomiting Primary Care Provider: Héctor Johnson MD The patient is a 59-year-old female with a past medical history of DM2, hypothyroidism, CLL, currently in remission, HLD, depression who presents to the ED on 06/25/2024 with complaints of nausea/vomiting over the past 24 hours. Pt reports noting a cyst on the L side of her face on Tuesday, nothing came out. Reported associated headaches and dizziness with the cyst, denies LOC. Reports being up most of the night because of the pain in the L side of her face. Reports vomiting prior to nail appt today x 1. Reports feeling dizzy at the nail salon and almost falling over when she was standing up. Reports 2 more episodes of emesis after that. Reports a history of a similar cyst in feb that was positive for MRSA at that time. Reports persistent headaches. Denies double vision. Denies any hearing loss. Denies any cp, sob, abd pain, or diarrhea. Denies any trouble swallowing. Denies any cough or flu like symptoms. Recently hospitalized 11/2023 with febrile neutropenia secondary to ESBL E. coli UTIrecurrent, patient was discharged on IV ertapenem to complete 10 days at this time. On arrival to the ED, labs remarkable for severe neutropenia, WBC 1.08, hemoglobin 11.8, hematocrit 34.1, total absolute neutrophils 0.22, NA 135, glucose 137, magnesium 1.4, UA negative. Respiratory panel negative. Chest x-ray negative Face CT negative for an abscess, left facial cellulitis and parotiditis Head CT showed left facial cellulitis, no fluid collection Abdomen/pelvis CT negative for any acute findings The patient was given IV Vanco/cefepime/IV fluids/IV magnesium and morphine in the ED The patient will be admitted for sepsis workup and left facial cellulitis Allergies Allergy/AdvReac Type Severity Reaction Status Date / Time adhesive tape Allergy Mild Rash/Itchin Verified 06/25/24 15:52 [facility] Home Medications Medication Instructions Recorded Confirmed Type metformin 1,000 mg tablet 1,000 mg PO BID ##0 09/21/09 06/25/24 History aspirin 81 mg tablet,delayed 81 mg PO QAM ##0 08/15/13 06/25/24 History release atorvastatin 20 mg tablet (Lipitor) 20 mg PO HS #0 tabs 08/15/13 06/25/24 History citalopram 20 mg tablet 20 mg PO QAM ##0 08/15/13 06/25/24 History alendronate 70 mg tablet 70 mg PO Q7D 08/05/23 06/25/24 History empagliflozin 25 mg tablet 25 mg PO QAM 08/05/23 06/25/24 History (Jardiance) levothyroxine 150 mcg tablet 150 mcg PO QAM 08/05/23 06/25/24 History omeprazole 40 mg capsule,delayed 40 mg PO QAM 08/05/23 06/25/24 History release semaglutide 1 mg/dose (4 mg/3 mL) 1 mg subcut Q7D 08/05/23 06/25/24 History subcutaneous pen injector (Ozempic) polyethylene glycol 3350 17 gram 17 g PO DAILY PRN Constipation #30 08/17/23 06/25/24 Rx oral powder packet (Miralax) ea apple cider vinegar 500 mg tablet 500 mg PO QAM ##0 08/24/23 06/25/24 History cranberry 500 mg capsule 500 mg PO QAM ##0 08/24/23 06/25/24 History lisinopril 10 mg tablet 10 mg PO QAM ##0 09/15/23 06/25/24 History tizanidine 4 mg tablet 4 mg PO BID PRN Spasms 09/15/23 06/25/24 History oxycodone-acetaminophen 5 mg-325 1 tab PO Q6H PRN pain or fever 12/22/23 06/25/24 History mg tablet insulin degludec 100 unit/mL (3 34 unit subcut QAM 02/15/24 06/25/24 History mL) subcutaneous pen (Tresiba FlexTouch U-100 insulin) nitrofurantoin 0 mg PO DAILY 02/15/24 06/25/24 History monohydrate/macrocrystals 100 mg capsule (Macrobid) solifenacin 10 mg tablet (Vesicare) 10 mg PO QAM 02/15/24 06/25/24 History diphenhydramine HCl 25 mg capsule 25 mg PO HS 06/25/24 06/25/24 History (Benadryl) fluoride (sodium) 1.1 % dental 1 applic dental DAILY 06/25/24 06/25/24 History paste gabapentin 300 mg capsule 0 mg PO BID 06/25/24 06/25/24 History melatonin 10 mg tablet 20 mg PO HS 06/25/24 06/25/24 History Past Med/Surg History Problem List Neutropenia Facial cellulitis E coli infection UTI (urinary tract infection) Generalized weakness Cellulitis of chest wall Febrile neutropenia History of ESBL E. coli infection Complicated UTI (urinary tract infection) B-cell lymphoma (Chronic 08/05/23) Asthma Splenic mass Lymphadenopathy Mass of buttock (Acute) Lumbar radiculopathy (Acute) Back pain (Acute) UTI (urinary tract infection) Renal calculi Lymphoma dx 2023 Lumbar radicular pain DM2 (diabetes mellitus, type 2) (Chronic) HTN (hypertension) (Chronic) "pt only on meds for her kidneys and diabetes, no high blood pressure" HLD (hyperlipidemia) (Chronic) GERD (gastroesophageal reflux disease) (Chronic) Hypothyroidism (Chronic) Depression (Chronic) Delivered by section (Chronic) x2 H/O hernia repair (Chronic) 1996,1998,2007 H/O dilation and curettage (Chronic) H/O tubal ligation (Chronic) Hx of tonsillectomy (Chronic) Medical History FELICITY (obstructive sleep apnea) Nausea and vomiting after administration of anesthetic agent 2005, after , "but had eaten prior to procedure, procedure was an emergency, no issues since then" History of frequent urinary tract infections has had 4 since 02/2023 Hx of renal calculi Hx of migraines 32 years ago, had "migraine induced seizure, no seizures since then." Surgical History Port-A-Cath in place (08/30/23) Insertion Access Port with Fluoroscopy, Left subclavian (Left) - Parker Marie, DO S/P cystoscopy with ureteral stent placement w/laser destruction of kidney stone Hx of colonoscopy Family History Mother Cancer skin cancer Diabetes Hypertension Brother Colorectal cancer Hypertension Father Hypertension Other Mass of buttock Social History Smoking Status: Never smoker Tobacco Type: Cigarettes Second Hand Exposure: No; Do You Dip or Chew Tobacco: No; Hx Alcohol Use: Yes Alcohol type: other Alcohol type Comment: wine coolers Hx Substance Use: No Preferred Language: Maori Communication Ability: Effective Flat Sorter Processor Required: No Beliefs That Will Affect Care: None Current Living Situation: Spouse and Family Current Living Situation Comment: , son, grandchild current occupational status: other 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 Feels Safe at Home: Yes Assistive Devices: Cane and Walker Review of Systems Review of Systems: All systems reviewed & are unremarkable except as noted in HPI & below Physical Exam Constitutional: WD/WN, vitals as above Eyes: PERRL, conjunctivae normal, anicteric sclerae ENMT: external ear and nose normal, oropharynx normal (L facial redness and cellulitis ) Neck: trachea midline, no thyromegaly Respiratory: normal respiratory effort, lungs clear to auscultation Cardiovascular: RRR, no murmur, no edema Gastrointestinal (Abdomen): normal bowel sounds, soft, nontender, no hepatosplenomegaly Musculoskeletal: no cyanosis or clubbing, extremities motor strength 5/5 (r hip pain - small lump - appears superficial) Skin: no rashes, warm and dry Neurologic: PERRL, EOMI, accommodation nl, no face palsy, no dysarthria Psychiatric: A+Ox3, euthymic affect Results & Data Results & Data Vital Signs (Past 12 Hours) Vital Signs Temp Pulse Pulse Pulse Resp BP BP 06/25/24 13:12 99 H 14 123/73 06/25/24 12:48 94 H 16 121/70 06/25/24 11:48 36.9 C 98 H 18 142/85 H Pulse Ox O2 Del Method 06/25/24 13:12 95 Room Air 06/25/24 12:48 95 06/25/24 11:48 99 Room Air Diagnostic Findings Laboratory Results WBC 1.08 K/ul (4.8-10.8) L 06/25/24 12:28 RBC 3.61 M/uL (4.20-5.40) L 06/25/24 12:28 Hgb 11.8 g/dl (12.0-16.0) L 06/25/24 12:28 Hct 34.1 % (37.0-47.0) L 06/25/24 12:28 MCV 94.5 fL (80.0-100.0) 06/25/24 12:28 MCH 32.7 pg (25.0-34.0) 06/25/24 12:28 MCHC 34.6 g/dL (32.0-36.0) 06/25/24 12: RDW Std Deviation 46.7 fL (36.4-46.3) H 06/25/24 12: RDW Coeff of Lisset 13.5 % (11.5-14.5) 06/25/24 12: Plt Count 186 K/uL (130-400) 06/25/24 12: MPV 8.7 fL (9.4-12.4) L 06/25/24 12:28 Neutrophils % (Manual) 20 % 06/25/24 12:28 Lymphocytes % (Manual) 32 % 06/25/24 12: Reactive Lymphs % (Man) 15 % 06/25/24 12: Monocytes % (Manual) 30 % 06/25/24 12: Eosinophils % (Manual) 1 % 06/25/24 12: Basophils % (Manual) 2 % 06/25/24 12: Neutrophils # (Manual) 0.22 K/uL (1.40-6.50) L 06/25/24 12:28 Total Absolute Neuts 0.22 K/uL (1.4-6.5) L* 06/25/24 12: Lymphocytes # (Manual) 0.35 K/uL (1.2-3.4) L 06/25/24 12: Reactive Lymphs # 0.16 K/uL 06/25/24 12: Total Abs Lymphocytes 0.51 K/uL (1.2-3.4) L 06/25/24 12: Monocytes # (Manual) 0.32 K/uL (0.11-0.59) 06/25/24 12:28 Eosinophils # (Manual) 0.01 K/uL (0-0.50) 06/25/24 12: Basophils # (Manual) 0.02 K/uL (0-0.2) 06/25/24 12: Sodium 135 mmol/L (136-145) L 06/25/24 12: Potassium 4.4 mmol/L (3.5-5.1) 06/25/24 12: Chloride 99 mmol/L (98-107) 06/25/24 12: Carbon Dioxide 28 mmol/L (21-32) 06/25/24 12:28 Anion Gap 8 (3-11) 06/25/24 12:28 BUN 18 mg/dl (6-23) 06/25/24 12:28 Creatinine 0.51 mg/dl (0.6-1.2) L 06/25/24 12:28 Est Cr Clr Drug Dosing 125.9 ml/min 06/25/24 12:28 eGFR 108.81 06/25/24 12:28 BUN/Creatinine Ratio 35.3 (10-20) H 06/25/24 12:28 Glucose 137 mg/dl (70-99(Fasting)) H 06/25/24 12:28 Calcium 9.5 mg/dl (8.6-10.3) 06/25/24 12:28 Magnesium 1.4 mg/dl (1.7-2.4) L 06/25/24 12:28 Total Bilirubin 0.5 mg/dl (0.2-1.0) 06/25/24 12:28 Direct Bilirubin 0.1 mg/dl (0-0.2) 06/25/24 12:28 AST 12 U/L (13-39) L 06/25/24 12:28 ALT 11 U/L (7-52) 06/25/24 12:28 Alkaline Phosphatase 60 U/L (34-104) 06/25/24 12:28 Troponin I High Sens 7.7 pg/ml (0-14) 06/25/24 12:28 Total Protein 6.5 gm/dl (6.0-8.3) 06/25/24 12:28 Albumin 4.2 gm/dl (3.4-5.0) 06/25/24 12:28 Globulin 2.3 gm/dl (2.5-4.0) L 06/25/24 12:28 Albumin/Globulin Ratio 1.8 (0.9-2) 06/25/24 12:28 Lipase 19 U/L (11-82) 06/25/24 12:28 Urine Color Yellow 06/25/24 13:03 Urine Appearance Clear (Clear) 06/25/24 13:03 Urine pH 5.5 (4.5-7.5) 06/25/24 13:03 Ur Specific [place] 1.025 (1.000-1.030) 06/25/24 13:03 Urine Protein Negative (Negative) 06/25/24 13:03 Urine Glucose (UA) 3+ (Negative) H 06/25/24 13:03 Urine Ketones Negative (Negative) 06/25/24 13:03 Urine Blood Negative (Negative) 06/25/24 13:03 Urine Nitrite Negative (Negative) 06/25/24 13:03 Urine Bilirubin Negative (Negative) 06/25/24 13:03 Urine Urobilinogen Negative (Negative) 06/25/24 13:03 Ur Leukocyte Esterase Negative (Negative) 06/25/24 13:03 Adenovirus (PCR) Not Detected (NotDetected) 06/25/24 13:12 B. pertussis DNA (PCR) Not Detected (NotDetected) 06/25/24 13:12 B.parapertussis DNA PCR Not Detected (NotDetected) 06/25/24 13:12 C. pneumoniae DNA (PCR) Not Detected (NotDetected) 06/25/24 13:12 Coronavirus OC43 (PCR) Not Detected (NotDetected) 06/25/24 13:12 Coronavirus HKU1 (PCR) Not Detected (NotDetected) 06/25/24 13:12 Coronavirus 229E (PCR) Not Detected (NotDetected) 06/25/24 13:12 SARS-CoV-2 (PCR) Not Detected (NotDetected) 06/25/24 13:12 Coronavirus NL63 (PCR) Not Detected (NotDetected) 06/25/24 13:12 Human Metapneumovir PCR Not Detected (NotDetected) 06/25/24 13:12 Influenza Type A (PCR) Not Detected (NotDetected) 06/25/24 13:12 Influenza Type B (PCR) Not Detected (NotDetected) 06/25/24 13:12 M. pneumoniae (PCR) Not Detected (NotDetected) 06/25/24 13:12 Parainfluenza 1 (PCR) Not Detected (NotDetected) 06/25/24 13:12 Parainfluenza 2 (PCR) Not Detected (NotDetected) 06/25/24 13:12 Parainfluenza 3 (PCR) Not Detected (NotDetected) 06/25/24 13:12 Parainfluenza 4 (PCR) Not Detected (NotDetected) 06/25/24 13:12 RSV (PCR) Not Detected (NotDetected) 06/25/24 13:12 Entero/Rhino (PCR) Not Detected (NotDetected) 06/25/24 13:12 Impressions Chest X-Ray 06/25/24 12:59 XR chest 1V portable CLINICAL HISTORY: dizziness COMPARISON STUDY: Chest CT August 05, 2023. Chest radiograph December 22, 2023. PET/CT October 26, 2023. FINDINGS: Left subclavian [id number] is in place. Lung volumes are normal. Lungs are clear. There is no pneumothorax or pleural effusion. Cardiac size is normal. Mediastinal contours are normal. There is no evidence for pulmonary edema. IMPRESSION: No acute cardiopulmonary findings. ACT 112: Negative or not required by law. Electronically signed by: Mehdi Douglas M.D. 06/25/2024 2:[address] 06/25/24 14:33 CT facial bones w con CLINICAL HISTORY: left facial abscess neutropenia, SINGER COMPARISON STUDY: None TECHNIQUE: Helical axial CT of the face was performed. Optiray 320 intr avenously. Sagittal and coronal reconstructions were done. Total exam DLP 2862.54 FINDINGS: There is no evidence of a drainable abscess. There is a left hemifacial cellulitis with soft tissue opacity and inflammatory stranding in the subcutaneous tissues and fat over the left cheek. There is also inflammatory stranding involving the superficial lobe of the left parotid gland which is contiguous with the soft tissue changes. The submandibular glands are unremarkable. The epiglottis is not swollen. The prevertebral soft tissues are negative. No significant adenopathy. There is a small air-fluid level in the left maxillary sinus and minimal mucosal thickening in the sphenoid sinus.. IMPRESSION: No evidence of abscess. Left facial cellulitis and parotiditis Mild changes of sinusitis in the left maxillary antrum and sphenoid sinus. ACT 112: Negative or not required by law. Electronically signed by: Misty Hinojosa M.D. 06/25/2024 3:[address] 06/25/24 14:33 CT OF THE HEAD WITHOUT CONTRAST CLINICAL HISTORY: left facial abscess neutropenia, headache COMPARISON STUDY: MRI of the brain August 05, 2023. TECHNIQUE: Helical axial images of the head were obtained without IV contrast. Automated exposure control was utilized for the study. A dose lowering technique was utilized adhering to the principles of ALARA. FINDINGS: No acute intracranial hemorrhage, midline shift or mass effect is present. The ventricular system is unremarkable. The basal cisterns are patent. No extra-axial collections are present. There are no findings to suggest acute dural sinus thrombosis or acute territorial infarct. The mastoid air cells are clear. There is mild sinus mucosal thickening. Extensive left facial stranding is noted with associated skin thickening. The facial bone CT will be reported separately. No fluid collection is identified. There is no soft tissue gas. IMPRESSION: 1. No acute intracranial findings. 2. Left facial cellulitis better depicted on the facial bone CT. No fluid collection to suggest abscess. ACT 112: Negative or not required by law. Electronically signed by: Mehdi Douglas M.D. 06/25/2024 3:21 PM Abdomen/Pelvis CT 06/25/24 14:[address] WITH IV CONTRAST CT DOSE: 2862.54 mGy.cm HISTORY: n/v, neutropenia TECHNIQUE: Multiaxial CT images of the abdomen and pelvis were performed following the IV administration of 90 cc of Optiray, A dose lowering technique was utilized adhering to the principles of ALARA. COMPARISON STUDY: 02/15/2024 FINDINGS: ABDOMEN: Liver, gallbladder, spleen, pancreas, and adrenal glands are unremarkable. Stable tiny cyst at the right kidney. There are atherosclerotic calcifications. No abdominal aortic aneurysm. Kidneys show no hydronephrosis or calculi. Pelvis: Urinary bladder is mildly distended. Uterus and adnexa are grossly unremarkable. There is moderate retained stool. No bowel inflammation or obstruction. No free fluid, free air, or abscess. No enlarged adenopathy. Osseous structures: There is stable mild height loss at the L3 vertebral body. No acute osseous findings. IMPRESSION: No acute findings. ACT 112: Negative or not required by law. The above report was generated using voice recognition software. It may contain grammatical, syntax or spelling errors. Electronically signed by: Kyle Landers M.D. 06/25/2024 3:18 PM Supervising Physician Co-Signing Physician Notes Patient is a 59-year-old female with history of diffuse large B-cell lymphoma, diabetes mellitus, hypothyroidism, depression and other medical problems presents with history of nausea, vomiting, left facial swelling/pain. Patient initially noted left facial cyst on Xander associated with headache, dizziness. Denies any fever, chills. She reports left facial tightness/throbbing pain/headache but denies any discharge from the cyst. Patient reports having similar swelling on the scalp previously which grew MRSA. She denies any change in vision, dysphagia/odynophagia, neck stiffness, chest pain, dyspnea. Patient completed immunotherapy, radiation therapy for B-cell lymphoma. She also notes developing a mass on right femur 2 months ago. Please review HPI for complete details of presentation. I personally reviewed blood work and imaging studies. Blood work suggestive of leukopenia/neutropenia,Sodium 135, magnesium 1.4, normal lactate, procalcitonin levels. UA within normal limits. Nasal MRSA pending. BioFire negative. Facial CT suggestive cellulitis, parotiditis, sinusitis of left maxillary antrum and sphenoid. No evidence of abscess. Physical Exam: Vitals signs as noted above General Appearance:Moderately built and nourished, no apparent distress Head: normocephalic, Atraumatic, +Left Facial swelling/minimal erythema, Cyst with some discharge Eyes: normal inspection, EOMI Neck: supple, Trachea midline,No neck stiffness Respiratory/Chest: Normal breath sounds, CTA, No accessory muscle use Cardiovascular: S1, S2, No murmur Abdomen/GI:Soft, Non tender, Bowel sounds present Extremities/Musculoskeletal:normal inspection, no edema, Right femoral region small mass palpable Neurologic/Psych:AAOX3, grossly no focal neurological deficits Skin: normal color, warm Left facial cellulitis/parotiditis/sinusitis Severe neutropenia H/O MRSA S/P I&D in ED No signs of sepsis Blood, wound cultures pending IV fluids Pain control Neutropenic/contact precautions Will consider ID evaluation when appropriate Monitor CBC Local wound care Right hip mass H/O large B-cell lymphoma Will need follow-up with [facility] oncology on discharge I personally interviewed and examined the patient at bedside. I have reviewed the advanced practitioner's documentation on the date of service referred in note and agree with plan. Patient's care is coordinated with Jessi GUPTA. Please refer to the documentation above for details of patient's presentation and for discussion of other issues. I spent a total [id number] coordinating, documenting, and providing care for this patient excluding time spent in the performance of separately billed services or time spent by another provider/QHP. (1) B-cell lymphoma B-cell lymphoma type: diffuse large B-cell
[2024-06-25] MEDS: PIPERACILLIN/TAZOBACTAM 4.5 GM/100 ML BAG IV STA (16:05)
[2024-06-25] MEDS: SODIUM CHLORIDE 0.9% 1,000 ML IV SCH (16:05)
[2024-06-25] MEDS ORDERED: tiZANidine HCL 4 MG TABLET PO PRN (16:11)
[2024-06-25] MEDS ORDERED: MELATONIN 3 MG TAB PO PRN (16:15)
[2024-06-25] MEDS ORDERED: ONDANSETRON INJ 2 MG/ML 2 ML VIAL IV PRN (16:33)
[2024-06-25] MEDS ORDERED: DEXTROSE 50% 50 ML SYRINGE IV PRN (18:04)
[2024-06-25] MEDS ORDERED: GLUCOSE 10 TAB/TUBE PO PRN (18:04)
[2024-06-25] MEDS ORDERED: CARBOHYDRATES FOR HYPOGLYCEMIA PO PRN (18:04)
[2024-06-25] MEDS ORDERED: GLUCAGON FOR INJ 1 MG VIAL SQ PRN (18:04)
[2024-06-25] MEDS ORDERED: GLUCOSE 40% GEL 15 GM TUBE PO PRN (18:04)
[2024-06-25] MEDS: INSULIN ASPART PER UNIT CHARGE SC SCH (20:07)
[2024-06-25] MEDS: diphenhydrAMINE Capsule 25 MG CAP PO SCH (20:07)
[2024-06-25] MEDS: HEPARIN SOD 5,000 UNIT/0.5 ML VIAL SQ SCH (20:07)
[2024-06-25] MEDS: GABAPENTIN 300 MG CAP PO SCH (20:08)
[2024-06-25] MEDS: MoRPHine SULFATE 2 MG/ML CARP IV PRN (22:46)
[2024-06-25] MEDS: VANCOMYCIN HCL 1,500 MG in SODIUM CHLORIDE 0.9% 500 ML IV SCH (22:49)
[2024-06-25] MEDS: PIPERACILLIN/TAZOBACTAM 4.5 GM/100 ML BAG IV SCH (22:50)
[2024-06-26] MEDS: oxyCODONE/ACETAMINOPHEN 5mg/325mg TAB PO PRN (03:10)
[2024-06-26] MEDS ORDERED: HEPARIN 100 UNIT/ML 5ML FLUSH FLUSH PRN (03:11)
[2024-06-26] MEDS: LEVOTHYROXINE SODIUM 150 MCG TABLET PO SCH (06:02)
[2024-06-26 06:12] LABS: Hematocrit (blood only) 31.7 % (37.0-47.0); Hemoglobin 10.9 g/dl (12.0-16.0); Mean Corpuscular Hemoglobin 32.3 pg (25.0-34.0); Mean Corpuscular Hgb Conc 34.4 g/dL (32.0-36.0); Mean Corpuscular Volume 94.1 fL (80.0-100.0); Mean Platelet Volume 8.5 fL (9.4-12.4); Platelet Count 188 K/uL (130-400); RDW Coefficient of Variation 13.2 % (11.5-14.5); RDW Standard Deviation 45.2 fL (36.4-46.3); Red Blood Count 3.37 M/uL (4.20-5.40); White Blood Count 1.11 K/ul (4.8-10.8)
[2024-06-26 06:27] LABS: Albumin Globulin Ratio 1.8 (0.9-2); Albumin Level 3.6 gm/dl (3.4-5.0); BUN Creatinine Ratio 37.7 (10-20); Bilirubin,Total 0.5 mg/dl (0.2-1.0); Calcium 8.4 mg/dl (8.6-10.3); Creatinine Clr Calc Pharmacy 122.2 ml/min; Magnesium 1.9 mg/dl (1.7-2.4); Potassium 4.1 mmol/L (3.5-5.1); Total Protein 5.6 gm/dl (6.0-8.3)
[2024-06-26 06:42] LABS: Basophils # (auto) 0.01 K/uL (0.00-0.20); Basophils % (auto) 0.9 %; Lymphocytes # (auto) 0.45 K/uL (1.20-3.40); Lymphocytes % (auto) 40.5 %; Monocytes # (auto) 0.42 K/uL (0.11-0.59); Monocytes % (auto) 37.8 %; Neutrophils # (auto) 0.23 K/uL (1.40-6.50); Neutrophils % (auto) 20.8 %
[2024-06-26] MEDS: ASPIRIN 81 MG ECTAB PO SCH (09:22)
[2024-06-26] MEDS: PANTOprazole 40 MG TAB PO SCH (09:23)
[2024-06-26] MEDS: CITALOPRAM 20 MG TAB PO SCH (09:23)
[2024-06-26] MEDS: lisinopril 10 MG TAB PO SCH (09:24)
--- NOTE | 2024-06-26 09:43 | Pharmacy Report ---
Pharmacy PK ABX Note - Date of Service June 26, 2024 - Assessment and Plan Assessment 59 year old F receiving vancomycin and zosyn for treatment of facial cellulitis/parotiditis. History of CLL. (+) neutropenic. Prelim surface face culture (+) Staph aureus. Blood cultures pending. Renal function stable. Day # 2 of antimicrobial therapy. Plan Vancomycin * Loading dose: 2000 mg IV x 1 * Maintenance dose: 1500 mg IV every 12 hours * Regimen is predicted to achieve target AUC/HAMMAD of 400-600 mg/L.hr * Random level tomorrow AM Pharmacy will continue to follow and will adjust dose/frequency as necessary. Thank you. Pharmacy has transitioned to AUC monitoring for vancomycin. AUC/HAMMAD is the preferred PK/PD target and is associated with decreased risk of nephrotoxicity compared to traditional trough targets.
--- NOTE | 2024-06-26 12:49 | Electrocardiogram Report ---
Test Reason : Blood Pressure : */* mmHG Vent. Rate : 78 BPM Atrial Rate : 78 BPM P-R Int : 162 ms QRS Dur : 94 ms QT Int : 418 ms P-R-T Axes : 43 2 15 degrees QTcB Int : 476 ms Normal sinus rhythm Normal ECG When compared with ECG of 25-Jun-2024 13:41, Questionable change in QRS axis Confirmed by Pepe Morales ([id number]) on 06/26/2024 12:49:41 PM Referred By: REFERRED SELF Confirmed By: Pepe Morales
--- NOTE | 2024-06-26 15:19 | Hospitalist Progress Note ---
Date of Service June 26, 2024 Assessment & Plan (1) B-cell lymphoma: (2) DM2 (diabetes mellitus, type 2): (3) HTN (hypertension): (4) HLD (hyperlipidemia): (5) Hypothyroidism: (6) Depression: (7) FELICITY (obstructive sleep apnea): (8) Facial cellulitis: (9) Neutropenia: Plan Per admitting service notes with addendum: The patient is a 59-year-old female with a past medical history of CLL, hypothyroidism, DM2, depression, HLD, HTN who presents to the ED on 06/25/2024 wi th complaints of nausea/vomiting/dizziness/headaches x 24 hours. Found to have left facial cellulitis and severe neutropenia L facial cellulitis/parotiditis: Noted on facial CT, continue IV Vanco/Zosyn for anaerobic coverage Blood cultures pending, no abscess identified on CT -I & D performed in ER - cx sent Local wound care, consider ID consult once cultures result Check lactic acid/procalcitonin 06/26 Wound culture: Staph aureus, sensitivities pending Blood cultures: Pending Clinically improving Continue vancomycin plus Zosyn ID consulted Severe neutropenia New R hip mass History CLLin remission No longer on chemotherapy, reportedly in remission Neutropenia new over the past month - pt also reports a new r hip mass (2 mos ago) -Planned for f/u with oncology in 08/21 for repeat PET scan -08/31/2023. Cycle 1 day 1 R-CHOP plus polatuzumab. -12/14/2023. Cycle 6-day 1 R-CHO plus polatuzumab. -01/04/2024-01/25/2024. Maintenance Rituxan x 2 cycles. -03/26/2024. S/p of consolidation radiation therapy to the right pelvis. 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 Archibald Hx DM2: Takes Ozempic/Jardiance/metformin, hold oral hypoglycemics SSI/4 times daily BGM, consult glycemic pharmacy Hx hypothyroidism: Continue levothyroxine Hx HTN/HLD: -Continue lisinopril/lipitor/aspirin Full code DVT prophylaxis: Heparin sub-q Disposition Lives at home with family Admission and Anticipated Discharge Date Admission Date: June 25, 2024 Subjective Follow-up for left facial cellulitis in the setting of neutropenia, history of CLL, in remission, etc. Seen resting in bed, comfortable, not in distress States he feels improved today compared to yesterday Minimal discomfort over the left lower face, no problems with chewing, swallowing No fevers or chills Review of Systems Review of Systems: all noted and negative except for above Physical Exam Physical Exam: General- oriented x 3, not in distress, speaks in sentences with no effort or accessory muscle use Face-very mild edema of the left lower half of the face, small pustular lesion anterior to the ear, with small scab, minimal tenderness, minimal erythema, no warmth Eyes- anicteric Neck- no JVD Lungs- clear breath sounds bilaterally, no rales/wheezes Heart- normal rate, regular rhythm; no murmurs Abdomen- normal bowel sounds, nondistended, soft, nontender Extremities- no pretibial edema, no calf tenderness Right lateral hip: Small nodule palpated, nontender, no erythema Neuro- alert, oriented x 3; no gross focal neurologic deficits Skin- warm & dry Results & Data Results & Data Vital Signs (Past 12 Hours) Vital Signs Temp Pulse Resp BP Pulse Ox O2 Del Method 06/26/24 12:36 36.7 C 87 20 122/78 98 Room Air 06/26/24 08:40 105/67 06/26/24 08:06 36.7 C 81 17 81/51 L 95 Room Air all noted and reviewed including below (1) B-cell lymphoma B-cell lymphoma type: diffuse large B-cell
[2024-06-26] MEDS ORDERED: PHARMACY GLYCEMIC MGMT CONSULT PRN (17:31)
[2024-06-26] MEDS: LANTUS PER UNIT CHARGE SC ONE (18:04)
[2024-06-26] MEDS: MUPIROCIN 2% OINT 22 GM TUBE EXT SCH (21:13)
[2024-06-27 06:42] LABS: Hematocrit (blood only) 31.5 % (37.0-47.0); Hemoglobin 10.7 g/dl (12.0-16.0); Mean Corpuscular Hemoglobin 32.4 pg (25.0-34.0); Mean Corpuscular Volume 95.5 fL (80.0-100.0); Mean Platelet Volume 8.5 fL (9.4-12.4); Platelet Count 182 K/uL (130-400); RDW Coefficient of Variation 13.4 % (11.5-14.5); RDW Standard Deviation 47.3 fL (36.4-46.3)
[2024-06-27 06:49] LABS: BUN Creatinine Ratio 26.2 (10-20); Calcium 8.6 mg/dl (8.6-10.3); Creatinine Clr Calc Pharmacy 106.1 ml/min; Potassium 4.3 mmol/L (3.5-5.1)
--- NOTE | 2024-06-27 07:26 | Oncology Consultation ---
Date of Consultation June 27, 2024 Assessment & Plan (1) Neutropenia: Cellulitis has resolved, she continues to be neutropenic. She will need a full workup for relapse of her lymphoma. I will arrange for bone marrow biopsy and a PET CT scan once the patient is discharged on an outpatient basis. The patient is planning to be discharged today. Okay to discharge on antibiotic coverage. Plan Follow-up in the oncology clinic in the next 1 to 2 weeks, he will schedule a bone marrow biopsy as well as a PET CT scan for restaging purposes given that she is at high risk for relapse. History of Present Illness Reason for Consultation: Diffuse large B-cell lymphoma neutropenia cellulitis Attending Physician: Vladimir Curiel MD History of Present Illness Diagnosis: Diffuse large B-cell lymphoma, not otherwise specified Date of diagnosis: 08/11/2023 Stage: Stage IV IPI score: 3 Treatment: Polatuzumab plus R CHP x 6 cycles Followed by radiation therapy Pretreatment testing: HIV, hepatitis B, negative Polatuzumab-R CHP; cycle 1 day 1: 08/31/2023 Polatuzumab-R CHP, cycle 2-day 1: 09/21/2023 Polatuzumab R CHP; cycle 3-day 1: 10/12/2023 Polatuzumab R CHP, cycle 4-day 1: 11/02/2023 Polatuzuman R CHP, cycle 5-day 1: 11/23/2023 Polatuzumab R CHP, cycle 6-day 1: 12/14/2023 Pretreatment labs: Hemoglobin: 9.5 g/dL WBC count: 2.55 Platelet count: 194 ANC: 1.46 Creatinine: 0.58 Bilirubin: 0.6 LDH: [address] scan, 08/23/2023: HEAD AND NECK: There is normal distribution of F-18 radiopharmaceutical in the visualized brain with no evidence of abnormal radiopharmaceutical uptake. It should be noted that a contrast enhanced CT or MRI is more sensitive for evaluation of brain masses. There is no FDG-avid disease or significant lymphadenopathy in the head and neck. CHEST: There is no pleural or pericardial effusion. Right hilar lymph node measures 24 mm with FDG uptake, SUV max 11.27. Left axillary nodes measure up to 10 mm with FDG uptake, SUV max 3.16. ABDOMEN/PELVIS: Below the diaphragm, tracer is distributed physiologically in the gastrointestinal and genitourinary tracts. Prominent uptake is in the spleen, SUV max 11.5. There is lymphadenopathy most prominently the right internal and external iliac chains, SUV max 13. MUSCULOSKELETAL: Expansile lesions are seen in multiple muscles most prominently including the right gluteus medius and minimus, SUV max 20.2, and the left extensor compartment, SUV max 10.3. Diffuse foci of osseous disease are seen throughout the axial and appendicular skeleton. IMPRESSION: Extensive foci of disease are seen with multiple bony lesions, right hilar, left axillary, and right iliac lymphadenopathy, and muscular involvement in the pelvis and leg. Findings are compatible with diagnosis of B-cell lymphoma. PET CT scan, 10/26/2023: IMPRESSION: 1. Overall significant positive response to treatment. 2. No pathologically enlarged lymph nodes are identified. Previously characterized FDG avid lymphadenopathy and abnormal splenic activity have resolved. 3. Significant improvement in bony metastatic disease as compared to previous. There are foci of persistent low-level uptake throughout the skeletal structures as above which could represent residual disease versus marrow rebound. Continued attention at follow-up is recommended. 4. The lungs are clear. 5. Additional findings as above. MRI spine lumbo-thoracic; 12/24/2023; done for back pain: IMPRESSION: 1. Multifocal marrow replacement compatible with the patient's history of lymphoma with osseous involvement has not significantly changed compared to the 10/26/2023 PET/CT. 2. No acute pathologic fracture, or significant epidural tumor involvement. 3. Chronic mild T10 wedge deformity without retropulsion. 4. No significant central canal or foraminal narrowing within the thoracic or lumbar spine. IMPRESSION: 1. Multifocal marrow replacement compatible with the patient's history of lymphoma with osseous involvement has not significantly changed compared to the 10/26/2023 PET/CT. 2. No acute pathologic fracture, or significant epidural tumor involvement. 3. Chronic mild T10 wedge deformity without retropulsion. 4. No significant central canal or foraminal narrowing within the thoracic or lumbar spine. CT chest, 08/05/2023 IMPRESSION: 1. Lymphadenopathy is seen in the left axilla and right greater than left wesley. Findings are suspicious for neoplastic process such as lymphoma. 2. Patulous and fluid-filled esophagus, correlation for achalasia is recommended. Brain MRI, 08/05/2023: 4 no acute intracranial abnormality CT abdomen pelvis, 08/05/2023: IMPRESSION: 1. There is marked masslike expansion of the right gluteus medius muscle extending into the right rooter operator foramen. There is also mass involving the right rectus femoris muscle and the left gluteus minimus. Additionally, the spleen is mildly enlarged with several splenic masses. There are also enlarged retroperitoneal lymph nodes, as well as right iliac chain lymphadenopathy extending into tube the right groin. This constellation of findings is highly suggestive of a neoplastic process such as lymphoma. Tissue sampling will likely be required for further assessment. 2. The skeletal structures are significantly heterogeneous suggesting metastatic bone involvement. 3. There is an air-fluid level within the bladder, possibly related to instrumentation. Correlate with clinical findings and urinalysis. 4. Coronary artery atherosclerosis. 5. Moderate to severe constipation. 6. Additional findings as above. Lymph node biopsy, left axilla, core biopsy, 08/11/2023: B-cell lymphoma, not otherwise specified Atypical lymphoid cells positive for CD20, PAX5, BCL6 and mum 1. Negative for CD10, CD30. Ki-67 shows a high proliferative index rate. Background T cells with CD3, CD5, CD8, CD7. JOSE by MURIEL is negative. DLBCL FISH for Bcl-2, BCL6, C MYC panel: Negative for Bcl-2, BCL6, c-Myc rearrangement Mediport placed, 08/30/2023 Echocardiogram, 08/31/2023: Ejection fraction 60 to 64% Strain of -21.5% PET CT scan, 02/08/2024: IMPRESSION: 1. Overall, positive treatment response compared to the prior study. 2. Interval improvement in the mild FDG uptake and thickening within the right gluteus medius muscle. 3. Multifocal patchy areas of mild marrow FDG uptake within the majority of the osseous structures has also improved. This could also be related to posttreatment changes. 4. No lymphadenopathy or splenomegaly. Miguel is very well-known to me with a prior history of DLBCL, currently at mated with neutropenia facial cellulitis. She is finished radiation to the right lower extremity. She has been started on broad-spectrum antibiotic and the cellulitis has resolved. She has been sick lately. Allergies Allergy/AdvReac Type Severity Reaction Status Date / Time adhesive tape Allergy Mild Rash/Itchin Verified 06/25/24 15:52 ess Home Medications Medication Instructions Recorded Confirmed Type metformin 1,000 mg tablet 1,000 mg PO BID ##0 09/21/09 06/25/24 History aspirin 81 mg tablet,delayed 81 mg PO QAM ##0 08/15/13 06/25/24 History release atorvastatin 20 mg tablet (Lipitor) 20 mg PO HS #0 tabs 08/15/13 06/25/24 History citalopram 20 mg tablet 20 mg PO QAM ##0 08/15/13 06/25/24 History alendronate 70 mg tablet 70 mg PO Q7D 08/05/23 06/25/24 History empagliflozin 25 mg tablet 25 mg PO QAM 08/05/23 06/25/24 History (Jardiance) levothyroxine 150 mcg tablet 150 mcg PO QAM 08/05/23 06/25/24 History omeprazole 40 mg capsule,delayed 40 mg PO QAM 08/05/23 06/25/24 History release semaglutide 1 mg/dose (4 mg/3 mL) 1 mg subcut Q7D 08/05/23 06/25/24 History subcutaneous pen injector (Ozempic) polyethylene glycol 3350 17 gram 17 g PO DAILY PRN Constipation #30 08/17/23 06/25/24 Rx oral powder packet (Miralax) ea apple cider vinegar 500 mg tablet 500 mg PO QAM ##0 08/24/23 06/25/24 History cranberry 500 mg capsule 500 mg PO QAM ##0 08/24/23 06/25/24 History lisinopril 10 mg tablet 10 mg PO QAM ##0 09/15/23 06/25/24 History tizanidine 4 mg tablet 4 mg PO BID PRN Spasms 09/15/23 06/25/24 History oxycodone-acetaminophen 5 mg-325 1 tab PO Q6H PRN pain or fever 12/22/23 06/25/24 History mg tablet insulin degludec 100 unit/mL (3 34 unit subcut QAM 02/15/24 06/25/24 History mL) subcutaneous pen (Tresiba FlexTouch U-100 insulin) nitrofurantoin 0 mg PO DAILY 02/15/24 06/25/24 History monohydrate/macrocrystals 100 mg capsule (Macrobid) solifenacin 10 mg tablet (Vesicare) 10 mg PO QAM 02/15/24 06/25/24 History diphenhydramine HCl 25 mg capsule 25 mg PO HS 06/25/24 06/25/24 History (Benadryl) fluoride (sodium) 1.1 % dental 1 applic dental DAILY 06/25/24 06/25/24 History paste gabapentin 300 mg capsule 0 mg PO BID 06/25/24 06/25/24 History melatonin 10 mg tablet 20 mg PO HS 06/25/24 06/25/24 History L.acidop,casei,lactis,rham-B.lact,maria guadalupe 1 cap PO DAILY #14 caps 06/27/24 Rx 625 mg (10 billion cell) capsule (Advanced Probiotic) amoxicillin 875 mg-potassium 1 tab PO BID 12 days #24 tabs 06/27/24 Rx clavulanate 125 mg tablet blood-glucose meter (OneTouch #1 ea 06/27/24 Rx Verio Flex Meter) gabapentin 100 mg capsule 100 mg PO BID #14 caps 06/27/24 Rx sulfamethoxazole 800 1 tab PO BID 12 days #24 tabs 06/27/24 Rx mg-trimethoprim 160 mg tablet (Bactrim DS) Patient History Medical History FELICITY (obstructive sleep apnea) Nausea and vomiting after administration of anesthetic agent 2005, after , "but had eaten prior to procedure, procedure was an emergency, no issues since then" History of frequent urinary tract infections has had 4 since 02/2023 Hx of renal calculi Hx of migraines 32 years ago, had "migraine induced seizure, no seizures since then." Surgical History Port-A-Cath in place (08/30/23) Insertion Access Port with Fluoroscopy, Left subclavian (Left) - Parker Marie, DO S/P cystoscopy with ureteral stent placement w/laser destruction of kidney stone Hx of colonoscopy Family History Mother Cancer skin cancer Diabetes Hypertension Brother Colorectal cancer Hypertension Father Hypertension Other Mass of buttock Social History Smoking Status: Former smoker Tobacco Type: Cigarettes Second Hand Exposure: No; Do You Dip or Chew Tobacco: No; Hx Alcohol Use: Yes Alcohol type: other Alcohol type Comment: wine coolers Hx Substance Use: No Preferred Language: Lao Communication Ability: Effective Patient Portal Concierge Required: No Beliefs That Will Affect Care: None Current Living Situation: Spouse Current Living Situation Comment: , son, grandchild current occupational status: other current occupation: [employer] Feels Safe at Home: Yes Assistive Devices: None Review of Systems Review of Systems: All systems reviewed & are unremarkable except as noted in HPI & below Constitutional: as per Subjective / HPI Eyes: as per Subjective / HPI Ear, Nose, Mouth, Throat: as per Subjective / HPI Respiratory: as per Subjective / HPI Cardiovascular: as per Subjective / HPI Gastrointestinal: as per Subjective / HPI Genitourinary: as per Subjective / HPI Musculoskeletal: as per Subjective / HPI Integumentary: as per Subjective / HPI Neurologic: as per Subjective / HPI Psychiatric: as per Subjective / HPI Endocrine: as per Subjective / HPI Physical Exam Constitutional: WD/WN, vitals as above Eyes: PERRL, conjunctivae normal, anicteric sclerae ENMT: external ear and nose normal, oropharynx normal Neck: trachea midline, no thyromegaly Respiratory: normal respiratory effort, lungs clear to auscultation Cardiovascular: RRR, no murmur, no edema Gastrointestinal (Abdomen): normal bowel sounds, soft, nontender, no hepatosplenomegaly Musculoskeletal: no cyanosis or clubbing, extremities motor strength 5/5 Results & Data Vital Signs (Past 12 Hours) Vital Signs Temp Pulse Pulse Pulse Resp BP Pulse Ox 06/27/24 03:41 36.7 C 75 16 110/70 96 06/26/24 23:04 36.7 C 75 18 126/75 96 06/26/24 21:45 75 06/26/24 19:55 36.5 C 80 18 127/74 97 O2 Del Method 06/27/24 03:41 Room Air 06/26/24 23:04 Room Air 06/26/24 21:45 06/26/24 19:55 Room Air (1) Neutropenia Neutropenia type: unspecified Qualified Code(s): D70.9 - Neutropenia, unspecified
[2024-06-27 08:14] LABS: Basophils # (auto) 0.01 K/uL (0.00-0.20); Eosinophils # (auto) 0.03 K/uL (0.00-0.50); Immature Granulocytes # (auto) 0.01 K/uL (0.01-0.20); Lymphocytes # (auto) 0.59 K/uL (1.20-3.40); Monocytes # (auto) 0.25 K/uL (0.11-0.59); Neutrophils # (auto) 0.11 K/uL (1.40-6.50)
[2024-06-27] MEDS: LANTUS PER UNIT CHARGE SC SCH (08:47)
--- NOTE | 2024-06-27 09:17 | Pharmacy Report ---
Pharmacy PK ABX Note - Date of Service June 27, 2024 - Assessment and Plan Assessment 06/27/24: Face culture s/p I&D growing MRSA. BC with no growth to date. ID consulted. Vanco random level drawn this AM resulted at 14.1 mcg/mL with extrapolated AUC at goal. 59 year old F receiving vancomycin and zosyn for treatment of facial cellulitis/parotiditis. History of CLL. (+) neutropenic. Prelim surface face culture (+) Staph aureus. Blood cultures pending. Renal function stable. Day # 2 of antimicrobial therapy. Plan Vancomycin * Current regimen: 1500 mg IV every 12 hours * Predicted AUC at steady state: 542 mg/L.hr * Will repeat level in the next 48-72 hours if therapy is continued and/or change in patient clinical status Pharmacy will continue to follow and will adjust dose/frequency as necessary. Thank you.
--- NOTE | 2024-06-27 09:43 | Electrocardiogram Report ---
Test Reason : Blood Pressure : */* mmHG Vent. Rate : 74 BPM Atrial Rate : 74 BPM P-R Int : 160 ms QRS Dur : 88 ms QT Int : 398 ms P-R-T Axes : 50 29 33 degrees QTcB Int : 441 ms Normal sinus rhythm Low voltage QRS Borderline ECG When compared with ECG of 26-Jun-2024 06:07, No significant change was found Confirmed by Pepe Morales ([id number]) on 06/27/2024 9:43:21 AM Referred By: REFERRED SELF Confirmed By: Pepe Morales
--- NOTE | 2024-06-27 10:10 | Hospitalist Progress Note ---
Date of Service June 27, 2024 Assessment & Plan (1) B-cell lymphoma: (2) DM2 (diabetes mellitus, type 2): (3) HTN (hypertension): (4) HLD (hyperlipidemia): (5) Hypothyroidism: (6) Depression: (7) FELICITY (obstructive sleep apnea): (8) Facial cellulitis: (9) Neutropenia: Plan Per admitting service notes with addendum: The patient is a 59-year-old female with a past medical history of CLL, hypothyroidism, DM2, depression, HLD, HTN who presents to the ED on 06/25/2024 wi th complaints of nausea/vomiting/dizziness/headaches x 24 hours. Found to have left facial cellulitis and severe neutropenia L facial cellulitis/parotiditis: Noted on facial CT, continue IV Vanco/Zosyn for anaerobic coverage Blood cultures pending, no abscess identified on CT -I & D performed in ER - cx posit. for MRSA Clinically improving Continued vancomycin plus Zosyn 06/27 ID consulted - recommend to switch to Bactrim + Augmentin for total of 14 days Severe neutropenia New R hip mass History CLLin remission No longer on chemotherapy, reportedly in remission Neutropenia new over the past month - pt also reports a new r hip mass (2 mos ago) -Planned for f/u with oncology in 08/21 for repeat PET scan -08/31/2023. Cycle 1 day 1 R-CHOP plus polatuzumab. -12/14/2023. Cycle 6-day 1 R-CHO plus polatuzumab. -01/04/2024-01/25/2024. Maintenance Rituxan x 2 cycles. -03/26/2024. S/p of consolidation radiation therapy to the right pelvis. 06/26 Completed chemotherapy and radiation therapy fall of last year Absolute neutrophil count currently 230 Likely secondary to underlying infection Will consult patient's director of safety Dr. Archibald 06/27 Discussed w/ Dr. Archibald - ok to discharge. Pt will need to follow up with them, likely will need bone marrow biopsy Hx DM2: Takes Ozempic/Jardiance/metformin, hold oral hypoglycemics SSI/4 times daily BGM, consult glycemic pharmacy Hx hypothyroidism: Continue levothyroxine Hx HTN/HLD: -Continue lisinopril/lipitor/aspirin Full code DVT prophylaxis: Heparin sub-q Disposition Lives at home with family Admission and Anticipated Discharge Date Admission Date: June 25, 2024 Subjective Follow-up for left facial cellulitis in the setting of neutropenia, history of CLL, in remission, etc. Seen resting in bed, comfortable, not in distress Overall feels improved ID consulted - recommend to switch to Po abx also discussed with oncology - will follow up with them as outpt Review of Systems Review of Systems: All systems reviewed & are unremarkable except as noted in Subjective Physical Exam Physical Exam: General- oriented x 3, not in distress, speaks in sentences with no effort or ac cessory muscle use Face-very mild edema of the left lower half of the face, small pustular lesion anterior to the ear, with small scab, minimal tenderness, minimal erythema, no warmth Eyes- anicteric Neck- no JVD Lungs- clear breath sounds bilaterally, no rales/wheezes Heart- normal rate, regular rhythm; no murmurs Abdomen- normal bowel sounds, nondistended, soft, nontender Neuro- alert, oriented x 3; no gross focal neurologic deficits Skin- warm & dry Results & Data Results & Data Vital Signs (Past 12 Hours) Vital Signs Temp Pulse Pulse Resp BP Pulse Ox O2 Del Method 06/27/24 08:03 36.5 C 71 20 113/72 93 Room Air 06/27/24 07:30 72 06/27/24 03:41 36.7 C 75 16 110/70 96 Room Air 06/26/24 23:04 36.7 C 75 18 126/75 96 Room Air Laboratory Results 06/27/24 06/27/24 06/27/24 Range/Units 08:01 07:49 06:04 WBC 1.00 L (4.8-10.8) K/ul RBC 3.30 L (4.20-5.40) M/uL Hgb 10.7 L (12.0-16.0) g/dl Hct 31.5 L (37.0-47.0) % MCV 95.5 (80.0-100.0) fL MCH 32.4 (25.0-34.0) pg MCHC 34.0 (32.0-36.0) g/dL RDW Std Deviation 47.3 H (36.4-46.3) fL RDW Coeff of Lisset 13.4 (11.5-14.5) % Plt Count 182 (130-400) K/uL MPV 8.5 L (9.4-12.4) fL Immature Gran % (Auto) 1.0 % Neut % (Auto) 11.0 % Lymph % (Auto) 59.0 % [place] % (Auto) 25.0 % Eos % (Auto) 3.0 % Baso % (Auto) 1.0 % Neut # (Auto) 0.11 L* (1.40-6.50) K/uL Lymph # (Auto) 0.59 L (1.20-3.40) K/uL [place] # (Auto) 0.25 (0.11-0.59) K/uL Eos # (Auto) 0.03 (0.00-0.50) K/uL Baso # (Auto) 0.01 (0.00-0.20) K/uL Immature Gran # (Auto) 0.01 (0.01-0.20) K/uL Peripher Smr Path Cons Pending Sodium 138 (136-145) mmol/L Potassium 4.3 (3.5-5.1) mmol/L Chloride 104 (98-107) mmol/L Carbon Dioxide 29 (21-32) mmol/L Anion Gap 5 (3-11) BUN 16 (6-23) mg/dl Creatinine 0.61 (0.6-1.2) mg/dl Est Cr Clr Drug Dosing 106.1 ml/min eGFR 104.21 BUN/Creatinine Ratio 26.2 H (10-20) Glucose 171 H (70-99(Fasting)) mg/dl POC Glucose 155 H (70-99) mg/dl Calcium 8.6 (8.6-10.3) mg/dl Random Vancomycin 14.1 (10-20) mcg/ml 06/26/24 06/26/24 06/26/24 Range/Units 20:38 17:00 12:16 WBC (4.8-10.8) K/ul RBC (4.20-5.40) M/uL Hgb (12.0-16.0) g/dl Hct (37.0-47.0) % MCV (80.0-100.0) fL MCH (25.0-34.0) pg MCHC (32.0-36.0) g/dL RDW Std Deviation (36.4-46.3) fL RDW Coeff of Lisset (11.5-14.5) % Plt Count (130-400) K/uL MPV (9.4-12.4) fL Immature Gran % (Auto) % Neut % (Auto) % Lymph % (Auto) % [place] % (Auto) % Eos % (Auto) % Baso % (Auto) % Neut # (Auto) (1.40-6.50) K/uL Lymph # (Auto) (1.20-3.40) K/uL [place] # (Auto) (0.11-0.59) K/uL Eos # (Auto) (0.00-0.50) K/uL Baso # (Auto) (0.00-0.20) K/uL Immature Gran # (Auto) (0.01-0.20) K/uL Peripher Smr Path Cons Sodium (136-145) mmol/L Potassium (3.5-5.1) mmol/L Chloride (98-107) mmol/L Carbon Dioxide (21-32) mmol/L Anion Gap (3-11) BUN (6-23) mg/dl Creatinine (0.6-1.2) mg/dl Est Cr Clr Drug Dosing ml/min eGFR BUN/Creatinine Ratio (10-20) Glucose (70-99(Fasting)) mg/dl POC Glucose 174 H 288 H 288 H (70-99) mg/dl Calcium (8.6-10.3) mg/dl Random Vancomycin (10-20) mcg/ml Medications Administered Current Inpatient Medications Acetaminophen (Acetaminophen 325 Mg Tab) 650 mg PO Q4H PRN PRN Reason: Pain or Fever Stop: 07/25/24 15:43 Aspirin (Aspirin 81 Mg Ectab) 81 mg PO [facility] Stop: 07/26/24 08:59 Last Admin: 06/27/24 08:44 Dose: 81 mg Citalopram Hydrobromide (Citalopram 20 Mg Tab) [facility] [place] Stop: 07/26/24 08:59 Last Admin: 06/27/24 08:45 Dose: 20 mg Dextrose (Dextrose 50% 50 Ml Syringe) 25 - 50 ml IV UD PRN; Protocol PRN Reason: Hypoglycemia Protocol Stop: 07/25/24 18:03 Diphenhydramine HCl (Diphenhydramine Capsule 25 Mg Cap) 25 mg PO HS JOHN Stop: 07/25/24 20:59 Last Admin: 06/26/24 21:12 Dose: 25 mg Gabapentin (Gabapentin 300 Mg Cap) 300 mg PO BID JOHN Stop: 07/25/24 20:59 Last Admin: 06/27/24 08:45 Dose: 300 mg Glucagon (Glucagon For Inj 1 Mg Vial) 1 mg SQ UD PRN; Protocol PRN Reason: Hypoglycemia Protocol Stop: 07/25/24 18:03 Glucose (Glucose 40% Gel 15 Gm Tube) 15 - 30 gm PO UD PRN; Protocol PRN Reason: Hypoglycemia Protocol Stop: 07/25/24 18:03 Glucose (Glucose 10 Tab/Tube) 4 - 8 tab PO UD PRN; Protocol PRN Reason: Hypoglycemia Protocol Stop: 07/25/24 18:03 Heparin Sodium (Porcine) (Heparin Sod 5,000 Unit/0.5 Ml Vial) 5,000 units SQ Q12 JOHN Stop: 07/25/24 20:59 Last Admin: 06/27/24 08:45 Dose: 5,000 units Heparin Sodium (Porcine) (Heparin 100 Unit/Ml 5ml Flush) 5 ml FLUSH PRN PRN PRN Reason: Flush Stop: 07/26/24 03:10 Piperacillin Sod/Tazobactam Sod (Zosyn) 4.5 gm in 100 mls @ 25 mls/hr IV Q8H [facility]; Protocol Stop: 07/02/24 21:59 Last Infusion: 06/27/24 09:54 Dose: Infused Vancomycin HCl 1,500 mg/ (Sodium Chloride) 530 mls @ 200 mls/hr IV Q12H [facility] Stop: 07/02/24 21:59 Last Admin: 06/27/24 09:49 Dose: 200 mls/hr Insulin Aspart (Insulin Aspart Per Unit Charge) 0 units SC ACHS [facility] Stop: 07/25/24 18:03 Last Admin: 06/27/24 08:48 Dose: 10 units Insulin Glargine (Lantus Per Unit Charge) 25 units SC QAM [facility] Stop: 07/27/24 08:59 Last Admin: 06/27/24 08:47 Dose: 25 units Levothyroxine Sodium (Levothyroxine Sodium 150 Mcg Tablet) 150 mcg PO DAILYBB [facility] Stop: 07/26/24 06:29 Last Admin: 06/27/24 05:53 Dose: 150 mcg Lisinopril (Lisinopril 10 Mg Tab) 10 mg PO QAM JHON Stop: 07/26/24 08:59 Last Admin: 06/27/24 08:44 Dose: 10 mg Melatonin (Melatonin 3 Mg Tab) 9 mg PO HS PRN PRN Reason: Sleep Stop: 07/25/24 16:14 Miscellaneous (Carbohydrates For Hypoglycemia ) 15 - 30 gm PO UD PRN PRN Reason: Hypoglycemia Protocol Stop: 07/25/24 18:03 Miscellaneous Information (Vancomycin Consult Active) 1 each N/A UD PRN PRN Reason: Consult Stop: 07/25/24 15:43 Miscellaneous Information (Pharmacy Glycemic Mgmt Consult) 1 each N/A UD PRN; Protocol PRN Reason: Consult Stop: 07/26/24 17:30 Morphine Sulfate (Morphine Sulfate 2 Mg/Ml Carp) 1 mg IV Q3H PRN PRN Reason: Pain Stop: 07/09/24 16:23 Last Admin: 06/27/24 03:47 Dose: 1 mg Mupirocin (Mupirocin 2% Oint 22 Gm Tube) 1 appln EXT BID JOHN Stop: 07/26/24 20:59 Last Admin: 06/27/24 08:45 Dose: 1 appln Ondansetron HCl (Ondansetron Inj 2 Mg/Ml 2 Ml Vial) 4 mg IV Q6H PRN PRN Reason: Nausea And Vomiting Stop: 07/25/24 16:32 Oxycodone/Acetaminophen (Oxycodone/Acetaminophen 5mg/325mg Tab) 1 tab PO Q6H PRN PRN Reason: pain or fever Stop: 07/09/24 16:10 Last Admin: 06/26/24 15:42 Dose: 1 tab Pantoprazole Sodium (Pantoprazole 40 Mg Tab) 40 mg PO QAM JOHN Stop: 07/26/24 08:59 Last Admin: 06/27/24 08:45 Dose: 40 mg Tizanidine HCl (Tizanidine Hcl 4 Mg Tablet) 4 mg PO BID PRN PRN Reason: Spasms Stop: 07/25/24 16:10 (1) B-cell lymphoma B-cell lymphoma type: diffuse large B-cell
[2024-06-27 12:13] VITALS: BP 121/85; RESP 17; TEMP 98.2; O2SAT 95
--- NOTE | 2024-06-27 12:42 | Pharmacy Report ---
Pharmacy Glycemic Short Note 2 - Date of Service June 27, 2024 - Glycemic Short BSG Results (Last 24 hours): 06/26/24 06/26/24 06/27/24 17:00 20:38 06:04 Glucose 171 H POC Glucose 288 H 174 H 06/27/24 06/27/24 08:01 12:10 Glucose POC Glucose 155 H 190 H OUTPATIENT ANTIDIABETIC REGIMEN: * Insulin degludec 34 units SQ qAM * Empagliflozin 25 mg PO qAM * Metformin 1000 mg PO BID * Semaglutide 1 mg SQ weekly * A1c = 6.3% ASSESSMENT: * Miguel is a T2DM admitted with facial cellulitis. * Pharmacy consulted for post prandial hyperglycemia, likely steroid induced. Patient was ordered a one time dose of IV dexamethasone 06/25 PM. * Patient received 29 units of insulin yesterday (10 units basal) with majority of BSGs above goal. * Will increase Lantus to 25 units based on past admission data (patient tolerated 20-30 units/day in past). * Continue current Novolog parameters. I anticipate improvement as peak effect of dexamethasone has worn off. PLAN FOR INPATIENT GLYCEMIC CONTROL: * Hold outpatient oral diabetes medications * Basal insulin * Lantus 25 units SQ qAM * Bolus insulin * NovoLog per scale ACHS or Q6hrs while NPO * Goal Range: Low 110 mg/dL - High 140 mg/dL * Correction Factor: 25 mg/dL/unit * Nutritional / Prandial insulin per carb ratio of 1 unit per 7 grams CHO consumed
--- NOTE | 2024-06-27 14:28 | Infectious Disease Consult ---
Date of Service June 27, 2024 Telehealth Information I performed this visit using a real-time telehealth connection between my location and the patients location ([facility]). After connecting through interactive tele-video, patient was identified by name and date of and/or wristband check.Patient (or authorized healthcare workforce services representative) was informed that this was a telemedicine visit and it was being conducted confidentially over secure lines. My office door was closed and no one else was present in the room with me.Patient (or authorized healthcare workforce services representative) provided consent to proceed with the visit, expressed an understanding of privacy and security of the telemedicine visit, and gave permission to have a hospital workforce services representative in the room in order to assist with the visit and to conduct portions of the visit, as needed. I informed the patient (or authorized healthcare workforce services representative) that I reviewed their record and presented the opportunity for them to ask any questions regarding the visit today. The patient agreed to participate. Assessment & Plan (1) Facial cellulitis: Plan: Assessment: L facial cellulitis w/ parotitis w/ self-inflicted skin injury Neutropenia Hx of CLL in remission since 02/2024, DM2 Recommendations: - I recommend to switch iv abx to oral abx: bactrim DS 1 tab po bid and augmentin 875 mg/125 mg po bid to complete total 14 days of abx therapy from 06/26 to 07/09/24 - Provide probiotic w/ abx therapy - ID signing off Neutropenia is likely secondary to infection in the setting of relatively depleted BM given the hx of CLL and chemo given not too long ago. As the patient remains afebrile w/ no obvious s/sx of sepsis and symptoms seemingly improved, it is appropriate to de-escalate abx therapy to cover the MRSA and possible OP prashanth. I spent a total of 60 minutes coordinating, documenting, and providing care for this patient excluding time spent in the performance of separately billed services or time spent by another provider/QHP. (2) Neutropenia: (3) Parotitis: History of Present Illness History of Present Illness This is a 59 y/o female (Miguel) w/ a hx of CLL in remission since 02/2024, DM2, and hypothyroidism, who presented to ED on 06/25/24 for n/v, dizziness and headache for 24 hours w/ L facial pain, redness and swelling suggestive of cellulitis and parotitis and severe neutropenia. She tried to get rid of ingrown hair on L jaw last week and subsequently developed the presenting symptoms. She did not take any antibiotic therapy before coming to hospital: she was on macrobid for recurrent UTI but she stopped taking it about a month ago because she ran out of it. Pain and swelling are improving. No diarrhea, persistent coughing, sore throat, dysphagia, sob, chest pain, abd pain, n/v or urinary symptoms. Currently on zosyn and vancomycin iv. Allergies Allergy/AdvReac Type Severity Reaction Status Date / Time adhesive tape Allergy Mild Rash/Itchin Verified 06/25/24 15:52 ess Home Medications Medication Instructions Recorded Confirmed Type metformin 1,000 mg tablet 1,000 mg PO BID ##0 09/21/09 06/25/24 History aspirin 81 mg tablet,delayed 81 mg PO QAM ##0 08/15/13 06/25/24 History release atorvastatin 20 mg tablet (Lipitor) 20 mg PO HS #0 tabs 08/15/13 06/25/24 History citalopram 20 mg tablet 20 mg PO QAM ##0 08/15/13 06/25/24 History alendronate 70 mg tablet 70 mg PO Q7D 08/05/23 06/25/24 History empagliflozin 25 mg tablet 25 mg PO QAM 08/05/23 06/25/24 History (Jardiance) levothyroxine 150 mcg tablet 150 mcg PO QAM 08/05/23 06/25/24 History omeprazole 40 mg capsule,delayed 40 mg PO QAM 08/05/23 06/25/24 History release semaglutide 1 mg/dose (4 mg/3 mL) 1 mg subcut Q7D 08/05/23 06/25/24 History subcutaneous pen injector (Ozempic) polyethylene glycol 3350 17 gram 17 g PO DAILY PRN Constipation #30 08/17/23 06/25/24 Rx oral powder packet (Miralax) ea apple cider vinegar 500 mg tablet 500 mg PO QAM ##0 08/24/23 06/25/24 History cranberry 500 mg capsule 500 mg PO QAM ##0 08/24/23 06/25/24 History lisinopril 10 mg tablet 10 mg PO QAM ##0 09/15/23 06/25/24 History tizanidine 4 mg tablet 4 mg PO BID PRN Spasms 09/15/23 06/25/24 History oxycodone-acetaminophen 5 mg-325 1 tab PO Q6H PRN pain or fever 12/22/23 06/25/24 History mg tablet insulin degludec 100 unit/mL (3 34 unit subcut QAM 02/15/24 06/25/24 History mL) subcutaneous pen (Tresiba FlexTouch U-100 insulin) nitrofurantoin 0 mg PO DAILY 02/15/24 06/25/24 History monohydrate/macrocrystals 100 mg capsule (Macrobid) solifenacin 10 mg tablet (Vesicare) 10 mg PO QAM 02/15/24 06/25/24 History diphenhydramine HCl 25 mg capsule 25 mg PO HS 06/25/24 06/25/24 History (Benadryl) fluoride (sodium) 1.1 % dental 1 applic dental DAILY 06/25/24 06/25/24 History paste gabapentin 300 mg capsule 0 mg PO BID 06/25/24 06/25/24 History melatonin 10 mg tablet 20 mg PO HS 06/25/24 06/25/24 History Patient History Medical History FELICITY (obstructive sleep apnea) Nausea and vomiting after administration of anesthetic agent 2005, after , "but had eaten prior to procedure, procedure was an emergency, no issues since then" History of frequent urinary tract infections has had 4 since 02/2023 Hx of renal calculi Hx of migraines 32 years ago, had "migraine induced seizure, no seizures since then." Surgical History Port-A-Cath in place (08/30/23) Insertion Access Port with Fluoroscopy, Left subclavian (Left) - Parker Marie, S/P cystoscopy with ureteral stent placement w/laser destruction of kidney stone Hx of colonoscopy Family History Mother Cancer skin cancer Diabetes Hypertension Brother Colorectal cancer Hypertension Father Hypertension Other Mass of buttock Social History Smoking Status: Former smoker Tobacco Type: Cigarettes Second Hand Exposure: No; Do You Dip or Chew Tobacco: No; Hx Alcohol Use: Yes Alcohol type: other Alcohol type Comment: wine coolers Hx Substance Use: No Preferred Language: Greek Communication Ability: Effective Brim Ironer Hand Required: No Beliefs That Will Affect Care: None Current Living Situation: Spouse Current Living Situation Comment: , son, grandchild current occupational status: other 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 Other Information That Helps Us Care for You: No Feels Safe at Home: Yes Safety Concerns: Feels Safe At This Time Assistive Devices: None Review of Systems as HPI and all others negative Physical Exam Gen: no acute distress Lungs: breathing comfortably on RA Skin: faint redness noted on L face on maxilla but no obvious swelling (but the visual qualithy of the IPAD was suboptimal) Neuro: alert and oriented x3 Results & Data Vital Signs (Past 12 Hours) Vital Signs Temp Pulse Pulse Resp BP Pulse Ox O2 Del Method 06/27/24 14:09 85 06/27/24 12:12 36.8 C 79 17 121/85 95 Room Air 06/27/24 08:03 36.5 C 71 20 113/72 93 Room Air 06/27/24 07:30 72 06/27/24 03:41 36.7 C 75 16 110/70 96 Room Air Laboratory Results Labs WBC 1K (N 11 %) H 10.7 Plt 182K Cr 0.61 LFT unremarkable UA (06/25): unremarkable Wound cx (06/25): MRSA (S to clinda, dapto, linezolid, rifampin, bact, vanco) MRSA screen: pos RPPCR: ND Blood cx (06/25): NGTD CT A/P (06/25): No acute findings. CT head (06/25): 1. No acute intracranial findings. 2. Left facial cellulitis better depicted on the facial bone CT. No fluid collection to suggest abscess. CT face (06/25): No evidence of abscess. Left facial cellulitis and parotiditis Mild changes of sinusitis in the left maxillary antrum and sphenoid sinus. CXR (06/25): No acute cardiopulmonary findings. Medications Administered vancomycin and zosyn (2) Neutropenia Neutropenia type: unspecified Qualified Code(s): D70.9 - Neutropenia, unspecified
[2024-06-27] MEDS: ADVANCED PROBIOTIC 625 MG CAPSULE PO SCH (17:21)
[2024-06-27] MEDS: HEPARIN 100 UNIT/ML 5ML FLUSH FLUSH STA (17:24)
[2024-06-27 17:32] VITALS: PULSE 80
--- NOTE | 2024-06-27 18:51 | Discharge Summary ---
Date of Service June 27, 2024 Admission HPI Per Admitting Provider The patient is a 59-year-old female with a past medical history of DM2, hypothyroidism, CLL, currently in remission, HLD, depression who presents to the ED on 06/25/2024 with complaints of nausea/vomiting over the past 24 hours. Pt reports noting a cyst on the L side of her face on Tuesday, nothing came out. Reported associated headaches and dizziness with the cyst, denies LOC. Reports being up most of the night because of the pain in the L side of her face. Reports vomiting prior to nail appt today x 1. Reports feeling dizzy at the nail salon and almost falling over when she was standing up. Reports 2 more episodes of emesis after that. Reports a history of a similar cyst in feb that was positive for MRSA at that time. Reports persistent headaches. Denies double vision. Denies any hearing loss. Denies any cp, sob, abd pain, or diarrhea. Denies any trouble swallowing. Denies any cough or flu like symptoms. Recently hospitalized 11/2023 with febrile neutropenia secondary to ESBL E. coli UTIrecurrent, patient was discharged on IV ertapenem to complete 10 days at this time. On arrival to the ED, labs remarkable for severe neutropenia, WBC 1.08, hemoglobin 11.8, hematocrit 34.1, total absolute neutrophils 0.22, NA 135, glucose 137, magnesium 1.4, UA negative. Respiratory panel negative. Chest x-ray negative Face CT negative for an abscess, left facial cellulitis and parotiditis Head CT showed left facial cellulitis, no fluid collection Abdomen/pelvis CT negative for any acute findings The patient was given IV Vanco/cefepime/IV fluids/IV magnesium and morphine in the ED The patient will be admitted for sepsis workup and left facial cellulitis Admission Exam Per Admitting Provider Constitutional: WD/WN, vitals as above Eyes: PERRL, conjunctivae normal, anicteric sclerae ENMT: external ear and nose normal, oropharynx normal (L facial redness and cellulitis ) Neck: trachea midline, no thyromegaly Respiratory: normal respiratory effort, lungs clear to auscultation Cardiovascular: RRR, no murmur, no edema Gastrointestinal (Abdomen): normal bowel sounds, soft, nontender, no hepatosplenomegaly Musculoskeletal: no cyanosis or clubbing, extremities motor strength 5/5 (r hip pain - small lump - appears superficial) Skin: no rashes, warm and dry Neurologic: PERRL, EOMI, accommodation nl, no face palsy, no dysarthria Psychiatric: A+Ox3, euthymic affect Principal Diagnosis Left facial cellulitis Neutropenia Discharge Exam General- oriented x 3, not in distress, speaks in sentences with no effort or accessory muscle use Face-very mild edema of the left lower half of the face, small pustular lesion anterior to the ear, with small scab, minimal tenderness, minimal erythema, no warmth Eyes- anicteric Neck- no JVD Lungs- clear breath sounds bilaterally, no rales/wheezes Heart- normal rate, regular rhythm; no murmurs Abdomen- normal bowel sounds, nondistended, soft, nontender Neuro- alert, oriented x 3; no gross focal neurologic deficits Skin- warm & dry Discharge Data Allergies Allergy/AdvReac Type Severity Reaction Status Date / Time adhesive tape Allergy Mild Rash/Itchin Verified 06/25/24 15:52 ess Consultations 06/25/24 15:58 ED Decision to Admit Stat 06/26/24 08:03 Consult Infectious Diseases Routine 06/26/24 11:15 Consult Hematology Routine Ordered Studies 06/25/24 14:33 CT face [CT facial bones w con] Stat FINDINGS: There is no evidence of a drainable abscess. There is a left hemifacial cellulitis with soft tissue opacity and inflammatory stranding in the subcutaneous tissues and fat over the left cheek. There is also inflammatory stranding involving the superficial lobe of the left parotid gland which is contiguous with the soft tissue changes. The submandibular glands are unremarkable. The epiglottis is not swollen. The prevertebral soft tissues are negative. No significant adenopathy. There is a small air-fluid level in the left maxillary sinus and minimal mucosal thickening in the sphenoid sinus.. IMPRESSION: No evidence of abscess. Left facial cellulitis and parotiditis Mild changes of sinusitis in the left maxillary antrum and sphenoid sinus. CT head/brain wo con Stat IMPRESSION: 1. No acute intracranial findings. 2. Left facial cellulitis better depicted on the facial bone CT. No fluid collection to suggest abscess. 06/25/24 14:34 CT abd pelvis IV con only Stat FINDINGS: ABDOMEN: Liver, gallbladder, spleen, pancreas, and adrenal glands are unremarkable. Stable tiny cyst at the right kidney. There are atherosclerotic calcifications. No abdominal aortic aneurysm. Kidneys show no hydronephrosis or calculi. Pelvis: Urinary bladder is mildly distended. Uterus and adnexa are grossly unremarkable. There is moderate retained stool. No bowel inflammation or obstruction. No free fluid, free air, or abscess. No enlarged adenopathy. Osseous structures: There is stable mild height loss at the L3 vertebral body. No acute osseous findings. IMPRESSION: No acute findings. Hospital Course (1) B-cell lymphoma: (2) DM2 (diabetes mellitus, type 2): (3) HTN (hypertension): (4) HLD (hyperlipidemia): (5) Hypothyroidism: (6) Depression: (7) FELICITY (obstructive sleep apnea): (8) Facial cellulitis: (9) Neutropenia: Plan Per admitting service notes with addendum: The patient is a 59-year-old female with a past medical history of CLL, hypothyroidism, DM2, depression, HLD, HTN who presents to the ED on 06/25/2024 with complaints of nausea/vomiting/dizziness/headaches x 24 hours. Found to have left facial cellulitis and severe neutropenia L facial cellulitis/parotiditis: Noted on facial CT, continue IV Vanco/Zosyn for anaerobic coverage Blood cultures pending, no abscess identified on CT -I & D performed in ER - cx posit. for MRSA Clinically improving Continued vancomycin plus Zosyn 06/27 ID consulted - recommend to switch to Bactrim + Augmentin for total of 14 days Severe neutropenia New R hip mass History CLLin remission No longer on chemotherapy, reportedly in remission Neutropenia new over the past month - pt also reports a new r hip mass (2 mos ago) -Planned for f/u with oncology in 08/21 for repeat PET scan -08/31/2023. Cycle 1 day 1 R-CHOP plus polatuzumab. -12/14/2023. Cycle 6-day 1 R-CHO plus polatuzumab. -01/04/2024-01/25/2024. Maintenance Rituxan x 2 cycles. -03/26/2024. S/p of consolidation radiation therapy to the right pelvis. 06/26 Completed chemotherapy and radiation therapy fall of last year Absolute neutrophil count currently 230 Likely secondary to underlying infection Will consult patient's whip sawyer Dr. Archibald 06/27 Discussed w/ Dr. Dragan Paredes ok to discharge. Pt will need to follow up with them, likely will need bone marrow biopsy Hx DM2: Takes Ozempic/Jardiance/metformin, hold oral hypoglycemics SSI/4 times daily BGM, consult glycemic pharmacy Hx hypothyroidism: Continue levothyroxine Hx HTN/HLD: -Continue lisinopril/lipitor/aspirin Total Time Total Time Spent Total Time Spent (In Minutes): 40 Discharge Plan Discharge Items Patient Disposition: Home - Self-Care Reason For Visit: L FACIAL CELLULITIS Discharge Diagnosis: Left facial cellulitis Neutropenia Activity: Per Instructions section Non-emergency contact: Primary Care Provider and Oncologist Call non-emergency contact if: you have any medication questions and your symptoms worsen Follow-up/Referrals: Héctor Johnson MD [Primary Care Provider] - (Date & Time 07/04/2024 3:00 PM Provider: Ranjana Oglesby PA-C [facility] ) Diet: Carb Consistent or DM2 Addtl Attending Provider Instructions: Follow up with your primary care doctor, the appointment was scheduled for you for 07/04/2024. Finish antibiotic treatment as prescribed. Take probiotic as prescribed. Pending Studies at Discharge: Yes Studies:: final results of blood cultx Stand-Alone Forms: [employer], Smoking Cessation Medications and DC Order Prescriptions: New Advanced Probiotic 625 mg (10 billion cell) Capsule 1 cap PO DAILY Qty: 14 0RF (DME) blood-glucose meter [OneTouch Verio Flex meter] Misc See Rx Instructions .Route Qty: 1 0RF Rx Instructions: check 2x a day sulfamethoxazole-trimethoprim [Bactrim DS] 800-160 mg tablet 1 tab PO BID 12 Days Qty: 24 0RF amoxicillin-pot clavulanate 875-125 mg tablet 1 tab PO BID 12 Days Qty: 24 0RF gabapentin 100 mg capsule 100 mg PO BID Qty: 14 0RF Continued solifenacin [Vesicare] 10 mg tablet 10 mg PO QAM metformin 1,000 mg Tablet 1,000 mg PO BID Qty: 0 aspirin 81 mg Tablet,Delayed Release (Dr/Ec) 81 mg PO QAM Qty: 0 citalopram 20 mg Tablet 20 mg PO QAM Qty: 0 atorvastatin [Lipitor] 20 mg Tablet 20 mg PO HS Qty: 0 lisinopril 10 mg tablet 10 mg PO QAM Qty: 0 Hold Instructions: Hold until further recommendations from your Primary care physician Patient Comments: currently on hold insulin degludec [Tresiba FlexTouch U-100] 100 unit/mL (3 mL) insulin pen 34 unit SUBCUT QAM omeprazole 40 mg capsule,delayed release(DR/EC) 40 mg PO QAM Ozempic 1 mg/dose (4 mg/3 mL) pen injector 1 mg SUBCUT Q7D Rx Instructions: Tuesday levothyroxine 150 mcg tablet 150 mcg PO QAM Jardiance 25 mg tablet 25 mg PO QAM alendronate 70 mg tablet 70 mg PO Q7D Rx Instructions: polyethylene glycol 3350 [Miralax] 17 gram Powder In Packet 17 g PO DAILY PRN (Reason: Constipation) Qty: 30 0RF cranberry 500 mg Capsule 500 mg PO QAM Qty: 0 Rx Instructions: administer with meals apple cider vinegar 500 mg Tablet 500 mg PO QAM Qty: 0 tizanidine 4 mg tablet 4 mg PO BID PRN (Reason: Spasms) oxycodone-acetaminophen 5-325 mg tablet 1 tab PO Q6H PRN (Reason: pain or fever) diphenhydramine HCl [Benadryl] 25 mg Capsule 25 mg PO HS fluoride (sodium) 1.1 % paste 1 applic dental DAILY melatonin 10 mg Tablet 20 mg PO HS gabapentin 300 mg capsule 0 mg PO BID Rx Instructions: Pt states that MD has not refilled this, but is supposed to be taking it. Original Directions: 300mg by mouth twice daily Held nitrofurantoin monohyd/m-cryst [Macrobid] 100 mg capsule 0 mg PO DAILY Hold Instructions: Resume on 07/09/24. discuss with your primary care provider about when to resume Rx Instructions: Per patient, this was 100mg po bid x 2 months then 100mg po daily for UTI prevention but ran out of refills. Original Directions: 100mg by mouth daily Discharge Orders: Discharge Order (Routine); Ordered 06/27/24 Ordered By: Vladimir Curiel Admission Data Admit Date/Time: 06/25/24 15:44 Attending Provider: Vladimir Curiel Admit Provider: Titi Preston Primary Care Provider: Héctor Johnson Other Providers: Titi Preston; Carlos Soares; Richelle Choi; [place] Kim I.; Tereso Guillaume II; Suzie Gonzales; Yung Rebolledo; Herbert Trinh; Rk López; Kole Wang; Kristie Ortega; Neyda Lisa; Flynn Archibald; Winter Guzman; Mari Mendenhall; Alberto Win; Elzbieta Reynoso; [facility]No Attending; Justin Escobar Other Interventions: Discharge Summary Assessment (RN) Last Done: 06/27/24 17:30
== END 2024-06-27 18:10 | disposition home or self-care (01) | DRG 603 ==
LOC: ED 11:46 → SUATTDRO 15:44 → 4W 15:44

== ENCOUNTER 2024-07-20 13:23 | Inpatient (IN) ==
--- NOTE | 2024-07-20 14:16 | ED Triage Note ---
Date of Service July 20, 2024 Provider in Triage Author: Sloan Robison History of Present Illness This patient was briefly evaluated while in triage. An abbreviated physical exam was performed. This patient is a 59-year-old Female who presents to the ED for evaluation of ur inary symptoms. She has a history of frequent UTIs and had an outpatient urinalysis by Fiorella Schmid yesterday. She does not know the results yet. Initially just had the burning with urination and pressure with urination. Then developed left flank pain now radiating to the whole abdomen. She started with a fever this morning. She has a history of sepsis from UTIs in the past. She has a history of B-cell lymphoma and history of neutropenia. Recent labs showed that her neutropenia resolved. Not on any chemo or radiation currently. Physical Exam GENERAL: Non-toxic and in no acute distress. HEENT: Pupils equal. No obvious scleral icterus. HEART: Regular rate and rhythm. LUNGS: Clear to auscultation. No accessory muscle use. ABDOMEN: Soft, diffusely tender to palpation, but worse on the left side. NEURO: Alert and oriented. No obvious neurological deficits on quick neuro exam. Initial orders for labs and / or imaging were placed and patient was taken back to a room. Please see further documentation for the full ED course. MDM / Impression Impression Impression: Pyelonephritis, Abdominal pain Impression: Abdominal pain Qualifiers: Abdominal location: unspecified location Qualified Code(s): R10.9 - Unspecified abdominal pain
[2024-07-20] MEDS ORDERED: PIPERACILLIN/TAZOBACTAM 4.5 GM/100 ML BAG IV ONE (15:03)
--- NOTE | 2024-07-20 15:15 | XRay Report ---
XR chest 1V portable CLINICAL HISTORY: Abdominal pain COMPARISON STUDY: 06/25/2024 FINDINGS: Single view portable chest demonstrates no significant interval change. There is no infiltr ate or pleural effusion. The heart and pulmonary vascularity are unremarkable. There is a left-sided subclavian venous catheter tip in the superior vena cava. IMPRESSION: Stable exam; no acute process ACT 112: Negative or not required by law. Electronically signed by: Misty Hinojosa M.D. 07/20/2024 3:14 PM
--- NOTE | 2024-07-20 15:25 | Emergency Department Note ---
Impression & Plan Pyelonephritis, Abdominal pain ED Provider Note NAME: SOCORRO VALENZUELA AGE: 59 SEX: F : 1965 ARRIVES VIA: Walk-In INFORMANT: Patient, ED PROVIDER(S): Pepe Akers DO CHIEF COMPLAINT: Urine infection. HPI: The patient is a 59-year-old female who presented to the emergency department for an evaluation of abdominal pain and urinary infection. The patient states that she started having symptoms over the course the last several days. The patient states that she had an outpatient urinalysis done and it shows that she is positive for E. coli. She has a history of ESBL. She was told to come to the emergency department for further evaluation. She complains of lower abdominal pain and cramping. She complains of back pain. She also had low-grade fever. ROS: See above HPI for pertinent positives & negatives. A total of 10 systems reviewed and were otherwise negative. PAST MEDICAL HISTORY: See Below PAST SURGICAL HISTORY: See Below FAMILY HISTORY: See Below SOCIAL HISTORY: See Below HOME MEDICATIONS: See Below ALLERGIES: See Below VITALS: See Below PHYSICAL EXAMINATION: GENERAL: Patient is awake alert in no acute distress patient is resting comfortably and showing no signs of anxiety EYES: The conjunctivae are clear. The pupils are round and reactive. EARS, NOSE, MOUTH AND THROAT: The nose is without any evidence of any deformity. NECK: The neck is nontender and supple. RESPIRATORY: Normal respiratory effort is noted there is no evidence of wheezing rhonchi or rales CARDIOVASCULAR: Regular rate and rhythm noted there no murmurs rubs or gallops normal S1 normal S2. GASTROINTESTINAL: The abdomen was soft mildly distended. There is lower abdominal tenderness to palpation. There is no specific guarding or rigidity MUSCULOSKELETAL/EXTREMITIES: There is no evidence of gross deformity full range of motion is noted in the hips and shoulders. SKIN: There is no obvious evidence of any rash. There are no petechiae, pallor or cyanosis noted. NEUROLOGIC: Patient is awake alert and oriented x3 strength MEDICAL DECISION MAKING: The patient is a 59-year-old female who presented to the emergency department for an evaluation of not feeling well abdominal pain and an abnormal urinalysis. The patient is being treated for urine infection. She has a history of ESBL. She was called today and told to go to the emergency department as her urine was positive for ESBL. She was having flank pain. I discussed patient's laboratory and radiographic studies with her. She was treated with IV fluids and IV antibiotics. I discussed her condition with the on-call [facility] hospitalist. Initially she was hypotensive but after fluid resuscitation she was looking much better. She was treated with pain medication. Triage Nursing notes reviewed. Prior medical records reviewed Vital Signs: reviewed and remarkable for initial hypotension. Differential diagnosis: Etiologies such as appendicitis, diverticulitis, obstruction, inflammatory bowel disease, renal colic, PUD, biliary pathology, pancreatitis, mesenteric ischemia, aortic pathology, infections, genitourinary, UTI, perforated viscus, as well as others were entertained. ER treatment provided: See below Diagnostics interpreted by me: ECG: EKG was obtained in the emergency department. My interpretation is normal sinus rhythm at 87 bpm. There was no ectopy. There is no acute ST segment abnormalities noted. There is no radiation from June 27, 2024. No changes were noted Cardiac Monitoring: An order was placed for continuous cardiac monitoring. The monitor shows a rate of 101 bpm with sinus tachycardia Laboratory studies: As stated above and show below. Imaging studies: See below. Radiographic imaging was reviewed by myself Consultation(s): I discussed this case with Dr Curiel she has agreed to evaluate the patient in the emergency department for further management and disposition Past Med/Surg History Problem List Abdominal pain (Acute) Pyelonephritis (Acute) Pyelonephritis UTI (urinary tract infection) Parotitis Intractable nausea and vomiting (Acute) Hypomagnesemia (Acute) Neutropenia (Acute) Facial cellulitis (Acute) Neutropenia Facial cellulitis E coli infection UTI (urinary tract infection) Generalized weakness Cellulitis of chest wall Febrile neutropenia History of ESBL E. coli infection Complicated UTI (urinary tract infection) B-cell lymphoma (Chronic 08/05/23) Asthma Splenic mass Lymphadenopathy Mass of buttock (Acute) Lumbar radiculopathy (Acute) Back pain (Acute) UTI (urinary tract infection) Renal calculi Lymphoma dx 2023 Lumbar radicular pain DM2 (diabetes mellitus, type 2) (Chronic) HTN (hypertension) (Chronic) "pt only on meds for her kidneys and diabetes, no high blood pressure" HLD (hyperlipidemia) (Chronic) GERD (gastroesophageal reflux disease) (Chronic) Hypothyroidism (Chronic) Depression (Chronic) Delivered by section (Chronic) x2 H/O hernia repair (Chronic) 1996,1998,2007 H/O dilation and curettage (Chronic) H/O tubal ligation (Chronic) Hx of tonsillectomy (Chronic) Medical History FELICITY (obstructive sleep apnea) Nausea and vomiting after administration of anesthetic agent 2005, after , "but had eaten prior to procedure, procedure was an emergency, no issues since then" History of frequent urinary tract infections has had 4 since 02/2023 Hx of renal calculi Hx of migraines 32 years ago, had "migraine induced seizure, no seizures since then." Surgical History Port-A-Cath in place (08/30/23) Insertion Access Port with Fluoroscopy, Left subclavian (Left) - [facility] Marie, S/P cystoscopy with ureteral stent placement w/laser destruction of kidney stone Hx of colonoscopy Family History Mother Cancer skin cancer Diabetes Hypertension Brother Colorectal cancer Hypertension Father Hypertension Other Mass of buttock Social History Smoking Status: Former smoker Tobacco Type: Cigarettes Second Hand Exposure: No; Do You Dip or Chew Tobacco: No; Hx Alcohol Use: Yes Alcohol type: other Alcohol type Comment: wine coolers Hx Substance Use: No Preferred Language: Moroccan Communication Ability: Effective Human Resources Technician Required: No Beliefs That Will Affect Care: None Current Living Situation: Spouse Current Living Situation Comment: , son, grandchild current occupational status: other 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 Feels Safe at Home: Yes Assistive Devices: None Allergies Allergies Allergy/AdvReac Type Severity Reaction Status Date / Time adhesive tape Allergy Mild Rash/Itchin Verified 06/25/24 15:52 ess Home Meds Home Medications Medication Instructions Recorded Confirmed metformin 1,000 mg tablet 1,000 mg PO BID ##0 09/21/09 07/20/24 aspirin 81 mg tablet,delayed 81 mg PO QAM ##0 08/15/13 07/20/24 release atorvastatin 20 mg tablet (Lipitor) 20 mg PO HS #0 tabs 08/15/13 07/20/24 citalopram 20 mg tablet 20 mg PO QAM ##0 08/15/13 07/20/24 alendronate 70 mg tablet 70 mg PO Q7D 08/05/23 07/20/24 empagliflozin 25 mg tablet 25 mg PO QAM 08/05/23 07/20/24 (Jardiance) levothyroxine 150 mcg tablet 150 mcg PO QAM 08/05/23 07/20/24 omeprazole 40 mg capsule,delayed 40 mg PO QAM 08/05/23 07/20/24 release semaglutide 1 mg/dose (4 mg/3 mL) 1 mg subcut Q7D 08/05/23 07/20/24 subcutaneous pen injector (Ozempic) apple cider vinegar 500 mg tablet 500 mg PO QAM ##0 08/24/23 07/20/24 cranberry 500 mg capsule 500 mg PO QAM ##0 08/24/23 07/20/24 lisinopril 10 mg tablet 10 mg PO QAM ##0 09/15/23 07/20/24 tizanidine 4 mg tablet 4 mg PO BID PRN Spasms 09/15/23 07/20/24 oxycodone-acetaminophen 5 mg-325 1 tab PO Q6H PRN pain or fever 12/22/23 07/20/24 mg tablet nitrofurantoin 100 mg PO DAILY 02/15/24 07/20/24 monohydrate/macrocrystals 100 mg capsule (Macrobid) solifenacin 10 mg tablet (Vesicare) 10 mg PO QAM 02/15/24 07/20/24 diphenhydramine HCl 25 mg capsule 25 mg PO HS 06/25/24 07/20/24 (Benadryl) fluoride (sodium) 1.1 % dental 1 applic dental DAILY 06/25/24 07/20/24 paste gabapentin 300 mg capsule 300 mg PO BID 06/25/24 07/20/24 melatonin 10 mg tablet 20 mg PO HS 06/25/24 07/20/24 insulin degludec 100 unit/mL (3 32 unit subcut HS 07/20/24 07/20/24 mL) subcutaneous pen (Tresiba FlexTouch U-100 insulin) Previous Rx's Medication Instructions Recorded L.acidop,casei,lactis,rham-B.lact,maria guadalupe 1 cap PO DAILY #14 caps 06/27/24 625 mg (10 billion cell) capsule (Advanced Probiotic) blood-glucose meter (OneTouch #1 ea 06/27/24 Verio Flex Meter) gabapentin 100 mg capsule 100 mg PO BID #14 caps 06/27/24 Results & Data (ED) Vital Signs Vital Signs - 24 hr 07/20/24 14:10 07/20/24 17:04 07/20/24 17:04 Temperature 36.6 C Temperature Source Temporal Artery Scan Pulse Rate 87 101 H Pulse Rate [Apical] 97 H Respiratory Rate 18 24 15 Respiratory Effort / Characteristics Non-Labored Spontaneous Respiratory Depth Normal Respiratory Pattern Regular Blood Pressure 83/53 L Blood Pressure [Right Arm] 117/67 Blood Pressure Mean 63 Blood Pressure Mean [Right Arm] 83 Pulse Oximetry 95 90 90 Oxygen Delivery Method Room Air Room Air Room Air Sepsis Recent Fever Within 48 Hours Yes Sepsis New/Unexplained Change in Mental Status N/A Sepsis Action Taken by Nursing No Action Required Home Medications Current Medication List: was personally reviewed by me Laboratory Data Attestation: I reviewed the patient's lab results. 07/20/24 15:11 07/20/24 15:11 Lab Results 07/20/24 07/20/24 Range/Units 15:11 Unknown WBC 5.34 (4.8-10.8) K/ul RBC 3.31 L (4.20-5.40) M/uL Hgb 10.7 L (12.0-16.0) g/dl Hct 31.9 L (37.0-47.0) % MCV 96.4 (80.0-100.0) fL MCH 32.3 (25.0-34.0) pg MCHC 33.5 (32.0-36.0) g/dL RDW Std Deviation 48.9 H (36.4-46.3) fL RDW Coeff of Lisset 13.6 (11.5-14.5) % Plt Count 185 (130-400) K/uL MPV 8.6 L (9.4-12.4) fL Immature Gran % (Auto) 0.4 % Neut % (Auto) 82.8 % Lymph % (Auto) 5.4 % Schley % (Auto) 11.0 % Eos % (Auto) 0.2 % Baso % (Auto) 0.2 % Neut # (Auto) 4.42 (1.40-6.50) K/uL Lymph # (Auto) 0.29 L (1.20-3.40) K/uL Schley # (Auto) 0.59 (0.11-0.59) K/uL Eos # (Auto) 0.01 (0.00-0.50) K/uL Baso # (Auto) 0.01 (0.00-0.20) K/uL Immature Gran # (Auto) 0.02 (0.01-0.20) K/uL PT 10.6 (9.0-12.0) Seconds INR 1.0 (0.9-1.1) Sodium 131 L (136-145) mmol/L Potassium 4.2 (3.5-5.1) mmol/L Chloride 100 (98-107) mmol/L Carbon Dioxide 21 (21-32) mmol/L Anion Gap 10 (3-11) BUN 34 H (6-23) mg/dl Creatinine 0.80 (0.6-1.2) mg/dl Est Cr Clr Drug Dosing Not Reportable eGFR 85.89 BUN/Creatinine Ratio 42.5 H (10-20) Glucose 168 H (70-99(Fasting)) mg/dl Lactate 0.7 (0.4-2.0) mmol/L Calcium 9.1 (8.6-10.3) mg/dl Total Bilirubin 0.7 (0.2-1.0) mg/dl AST 11 L (13-39) U/L ALT 11 (7-52) U/L Alkaline Phosphatase 51 (34-104) U/L Troponin I High Sens 11.7 (0-14) pg/ml Total Protein 6.4 (6.0-8.3) gm/dl Albumin 3.8 (3.4-5.0) gm/dl Globulin 2.6 (2.5-4.0) gm/dl Albumin/Globulin Ratio 1.5 (0.9-2) Lipase 11 (11-82) U/L Procalcitonin 1.69 H (0-0.5) ng/ml Administered Medications Fentanyl Citrate (Fentanyl Citrate Pf 100 Mcg/2 Ml Vial) 50 mcg IV Q15M PRN PRN Reason: Pain Stop: 08/03/24 15:04 Last Admin: 07/20/24 17:35 Dose: 50 mcg Documented By: Admin: 07/20/24 16:33 Dose: 50 mcg Documented By: JADA Sodium Chloride (Nss) 1,000 mls @ 80 mls/hr IV .[id number] JOHN Stop: 07/21/24 06:44 Last Admin: 07/20/24 18:34 Dose: 80 mls/hr Documented By: PATRICIA Discontinued Medications Hydromorphone HCl (Hydromorphone Inj 0.5 Mg/0.5 Ml Syr) 0.5 mg IV NOW STA Stop: 07/20/24 18:21 Last Admin: 07/20/24 18:34 Dose: 0.5 mg Documented By: PATRICIA Sodium Chloride (Nss) 1,000 mls @ 999 mls/hr IV .Q1H1M ONE Stop: 07/20/24 15:18 Last Infusion: 07/20/24 17:07 Dose: Infused Documented By: Admin: 07/20/24 15:36 Dose: 999 mls/hr Documented By: PATRICIA Sodium Chloride (Nss) 1,000 mls @ 999 mls/hr IV .Q1H1M ONE Stop: 07/20/24 16:00 Last Infusion: 07/20/24 18:13 Dose: Infused Documented By: Admin: 07/20/24 17:08 Dose: 999 mls/hr Documented By: PATRICIA Ertapenem (Invanz 1000mg) 1,000 mg in 10 mls @ 2 mls/min IV NOW STA Stop: 07/20/24 15:09 Last Admin: 07/20/24 16:33 Dose: 2 mls/min Documented By: JADA Ioversol (Optiray 320 100ml) 93 ml IV ONCE ONE Stop: 07/20/24 16:50 Last Admin: 07/20/24 16:49 Dose: 93 ml Documented By: HILDA Ketorolac Tromethamine (Ketorolac Tromethamine 15 Mg/Ml Vial) 10 mg IV NOW ONE Stop: 07/20/24 14:18 Last Admin: 07/20/24 15:39 Dose: 10 mg Documented By: PATRICIA Ondansetron HCl (Ondansetron Inj 2 Mg/Ml 2 Ml Vial) 4 mg IV NOW STA Stop: 07/20/24 15:04 Last Admin: 07/20/24 16:33 Dose: 4 mg Documented By: JADA Imaging Data Attestation: I personally reviewed and interpreted this imaging study as follows: My Impression: CT Of the abdomen and pelvis was obtained in the emergency department. My interpretation is no free air or signs of definite bowel obstruction, final report below Radiologist's Impression: Abdomen/Pelvis CT 07/20/24 14:16 EXAM: CT Abdomen and Pelvis With Intravenous Contrast INDICATION: Abdominal pain. UTI symptoms. Sepsis. TECHNIQUE: Axial computed tomography images of the abdomen and pelvis with intravenous contrast. Sagittal and coronal reformatted images were created and reviewed. This CT exam was performed using one or more of the following dose reduction techniques: automated exposure control, adjustment of the mA and/or kV according to patient size, and/or use of iterative reconstruction technique. CONTRAST: 93 ml of Optiray 320 was administered intravenously. COMPARISON: 06/25/2024 FINDINGS: Limitations: None. Lung bases: No abnormality noted. Pleural space: No visualized pleural effusion or pneumothorax. Heart: No abnormality noted. Mediastinum: Stable small hiatal hernia. ABDOMEN: Liver: No abnormality noted. Gallbladder and bile ducts: The gallbladder is moderate to markedly distended. No calcified stones. No ductal dilatation. No gas. Pancreas: Homogeneous enhancement. No mass, inflammation or ductal dilation. Spleen: No significant abnormality noted. Adrenals: No significant abnormality noted. Kidneys and ureters: There is right greater than left diffuse urothelial thickening of the urinary tracts. No stone, gas or hydronephrosis. Simple right renal cyst/s. No simple cyst follow-up necessary. Left kidney appears normal. No renal stone, hydronephrosis or perinephric fluid. Stomach and bowel: Moderate to large amounts of stool throughout the redundant colon. PELVIS: Appendix: No findings to suggest acute appendicitis. Bladder: There is mild thickening of the urinary bladder. No stone or gas. Reproductive: No abnormalities noted. ABDOMEN and PELVIS: Intraperitoneal space: No free air. No significant fluid collection. Bones/joints: Degenerative changes noted in the spine. Chronic appearing superior endplate compression deformity of L3. No acute osseous abnormality. Soft tissues: There are small bilateral fat containing inguinal hernias. Intact ventral hernia repair. Vasculature: Atherosclerotic calcification of the aorta and branches. No aneurysm. Lymph nodes: No pathologically enlarged lymph nodes. IMPRESSION: 1. Pyelonephritis and cystitis. 2. Moderately distended gallbladder. This can be related to prolonged fasting. Correlate clinically. Macro impression large amounts of formed stool throughout the redundant colon without obstruction or thickening. ACT 112: Negative or not required by law. Electronically signed by Karena Collado 07-20-2024 5:15 PM Chest X-Ray 07/20/24 14:16 XR chest 1V portable CLINICAL HISTORY: Abdominal pain COMPARISON STUDY: 06/25/2024 FINDINGS: Single view portable chest demonstrates no significant interval change. There is no infiltrate or pleural effusion. The heart and pulmonary vascularity are unremarkable. There is a left-sided subclavian venous catheter tip in the superior vena cava. IMPRESSION: Stable exam; no acute process ACT 112: Negative or not required by law. Electronically signed by: Misty Hinojosa M.D. 07/20/2024 3:14 PM Discharge Plan Visit Data Chief Complaint: Pain (Generalized) Stated Complaint: DIZZY, PELVIC PAIN/LOW BACK/DOWN BOTH LEGS, FEVER ED Provider: Pepe Akers Discharge Problem: Pyelonephritis, Abdominal pain Patient Disposition: Being Evaluated by Hospitalist Forms Stand Alone Forms: My [facility] [employer] Prescriptions Prescriptions: No Action nitrofurantoin monohyd/m-cryst [Macrobid] 100 mg capsule 100 mg PO DAILY Hold Instructions: Resume on 07/09/24. discuss with your primary care provider about when to resume Rx Instructions: Per patient, this was 100mg po bid x 2 months then 100mg po daily for UTI prevention but ran out of refills. Original Directions: 100mg by mouth daily solifenacin [Vesicare] 10 mg tablet 10 mg PO QAM metformin 1,000 mg Tablet 1,000 mg PO BID Qty: 0 aspirin 81 mg Tablet,Delayed Release (Dr/Ec) 81 mg PO QAM Qty: 0 citalopram 20 mg Tablet 20 mg PO QAM Qty: 0 atorvastatin [Lipitor] 20 mg Tablet 20 mg PO HS Qty: 0 lisinopril 10 mg tablet 10 mg PO QAM Qty: 0 Hold Instructions: Hold until further recommendations from your Primary care physician Patient Comments: currently on hold insulin degludec [Tresiba FlexTouch U-100] 100 unit/mL (3 mL) insulin pen 32 unit SUBCUT HS omeprazole 40 mg capsule,delayed release(DR/EC) 40 mg PO QAM Ozempic 1 mg/dose (4 mg/3 mL) pen injector 1 mg SUBCUT Q7D Rx Instructions: Tuesday levothyroxine 150 mcg tablet 150 mcg PO QAM Jardiance 25 mg tablet 25 mg PO QAM alendronate 70 mg tablet 70 mg PO Q7D Rx Instructions: cranberry 500 mg Capsule 500 mg PO QAM Qty: 0 Rx Instructions: administer with meals apple cider vinegar 500 mg Tablet 500 mg PO QAM Qty: 0 tizanidine 4 mg tablet 4 mg PO BID PRN (Reason: Spasms) oxycodone-acetaminophen 5-325 mg tablet 1 tab PO Q6H PRN (Reason: pain or fever) diphenhydramine HCl [Benadryl] 25 mg Capsule 25 mg PO HS fluoride (sodium) 1.1 % paste 1 applic dental DAILY melatonin 10 mg Tablet 20 mg PO HS gabapentin 300 mg capsule 300 mg PO BID Rx Instructions: Pt states that MD has not refilled this, but is supposed to be taking it. Original Directions: 300mg by mouth twice daily Advanced Probiotic 625 mg (10 billion cell) Capsule 1 cap PO DAILY Qty: 14 0RF (DME) blood-glucose meter [OneTouch Verio Flex meter] Misc See Rx Instructions .Route Qty: 1 0RF Rx Instructions: check 2x a day gabapentin 100 mg capsule 100 mg PO BID Qty: 14 0RF Referrals Referrals: Héctor Johnson MD [Primary Care Provider] - Discharge Problem: Abdominal pain Qualifiers: Abdominal location: unspecified location Qualified Code(s): R10.9 - Unspecified abdominal pain
[2024-07-20] MEDS: SODIUM CHLORIDE 0.9% 1,000 ML IV ONE ×2 (15:36→17:08)
[2024-07-20 15:37] LABS: Basophils # (auto) 0.01 K/uL (0.00-0.20); Basophils % (auto) 0.2 %; Eosinophils # (auto) 0.01 K/uL (0.00-0.50); Eosinophils % (auto) 0.2 %; Hematocrit (blood only) 31.9 % (37.0-47.0); Hemoglobin 10.7 g/dl (12.0-16.0); Immature Granulocytes # (auto) 0.02 K/uL (0.01-0.20); Immature Granulocytes % (auto) 0.4 %; Lymphocytes # (auto) 0.29 K/uL (1.20-3.40); Lymphocytes % (auto) 5.4 %; Mean Corpuscular Hemoglobin 32.3 pg (25.0-34.0); Mean Corpuscular Hgb Conc 33.5 g/dL (32.0-36.0); Mean Corpuscular Volume 96.4 fL (80.0-100.0); Mean Platelet Volume 8.6 fL (9.4-12.4); Monocytes # (auto) 0.59 K/uL (0.11-0.59); Neutrophils # (auto) 4.42 K/uL (1.40-6.50); Neutrophils % (auto) 82.8 %; Platelet Count 185 K/uL (130-400); RDW Coefficient of Variation 13.6 % (11.5-14.5); RDW Standard Deviation 48.9 fL (36.4-46.3); Red Blood Count 3.31 M/uL (4.20-5.40); White Blood Count 5.34 K/ul (4.8-10.8)
[2024-07-20] MEDS: KETOROLAC TROMETHAMINE 15 MG/ML VIAL IV ONE (15:39)
[2024-07-20 15:56] LABS: Alanine Aminotransferase 11 U/L (7-52); Albumin Globulin Ratio 1.5 (0.9-2); Albumin Level 3.8 gm/dl (3.4-5.0); Alkaline Phosphatase 51 U/L (34-104); Anion Gap 10 (3-11); Aspartate Aminotransferase 11 U/L (13-39); BUN Creatinine Ratio 42.5 (10-20); Bilirubin,Total 0.7 mg/dl (0.2-1.0); Blood Urea Nitrogen 34 mg/dl (6-23); Calcium 9.1 mg/dl (8.6-10.3); Carbon Dioxide 21 mmol/L (21-32); Chloride 100 mmol/L (98-107); Globulin 2.6 gm/dl (2.5-4.0); Glucose 168 mg/dl (70-99(Fasting)); Lipase 11 U/L (11-82); Potassium 4.2 mmol/L (3.5-5.1); Sodium 131 mmol/L (136-145); Total Protein 6.4 gm/dl (6.0-8.3)
[2024-07-20 16:01] LABS: Prothrombin Time 10.6 Seconds (9.0-12.0)
[2024-07-20 16:03] LABS: Troponin I High Sensitivity 11.7 pg/ml (0-14)
[2024-07-20] MEDS: fentaNYL citrate PF 100 MCG/2 ML VIAL IV PRN (16:33)
[2024-07-20] MEDS: ONDANSETRON INJ 2 MG/ML 2 ML VIAL IV STA (16:33)
[2024-07-20] MEDS: ERTAPENEM 1000MG 1,000 MG/10 ML SYR IV STA (16:33)
[2024-07-20] MEDS: OPTIRAY 320 100ml IV ONE (16:49)
--- NOTE | 2024-07-20 17:15 | CT Scan Report ---
EXAM: CT Abdomen and Pelvis With Intravenous Contrast INDICATION: Abdominal pain. UTI symptoms. Sepsis. TECHNIQUE: Axial computed tomography images of the abdomen and pelvis with intravenous contrast. Sagittal and coronal reformatted images were created and reviewed. This CT exam was performed using one or more of the following dose reduction techniques: automated exposure control, adjustment of the mA and/or kV according to patient size, and/or use of iterative reconstruction technique. CONTRAST: 93 ml of Optiray 320 was administered intravenously. COMPARISON: 06/25/2024 FINDINGS: Limitations: None. Lung bases: No abnormality noted. Pleural space: No visualized pleural effusion or pneumothorax. Heart: No abnormality noted. Mediastinum: Stable small hiatal hernia. ABDOMEN: Liver: No abnormality noted. Gallbladder and bile ducts: The gallbladder is moderate to markedly distended. No calcified stones. No ductal dilatation. No gas. Pancreas: Homogeneous enhancement. No mass, inflammation or ductal dilation. Spleen: No significant abnormality noted. Adrenals: No significant abnormality noted. Kidneys and ureters: There is right greater than left diffuse urothelial thickening of the urinary tracts. No stone, gas or hydronephrosis. Simple right renal cyst/s. No simple cyst follow-up necessary. Left kidney appears normal. No renal stone, hydronephrosis or perinephric fluid. Stomach and bowel: Moderate to large amounts of stool throughout the redundant colon. PELVIS: Appendix: No findings to suggest acute appendicitis. Bladder: There is mild thickening of the urinary bladder. No stone or gas. Reproductive: No abnormalities noted. ABDOMEN and PELVIS: Intraperitoneal space: No free air. No significant fluid collection. Bones/joints: Degenerative changes noted in the spine. Chronic appearing superior endplate compression deformity of L3. No acute osseous abnormality. Soft tissues: There are small bilateral fat containing inguinal hernias. Intact ventral hernia repair. Vasculature: Atherosclerotic calcification of the aorta and branches. No aneurysm. Lymph nodes: No pathologically enlarged lymph nodes. IMPRESSION: 1. Pyelonephritis and cystitis. 2. Moderately distended gallbladder. This can be related to prolonged fasting. Correlate clinically. Macro impression large amounts of formed stool throughout the redundant colon without obstruction or thickening. ACT 112: Negative or not required by law. Electronically signed by Karena Collado 07-20-2024 5:15 PM
--- NOTE | 2024-07-20 17:40 | History & Physical Report ---
Date of Service July 20, 2024 Assessment & Plan (1) UTI (urinary tract infection): (2) Pyelonephritis: Plan: Ucultx obtained by PCP - posit. for ESBL E.coli CT abd pelvis obtained in ED c/w Pyelonephritis and cystitis. In the ED also found hypotensive w/ BP 83/53 Reports fever at home 102.5F Received IVF NS and was started on Ertapenem, which will cont. Blood cultx obtained in ED and pending Constipation - noted on CT abd - miralax, colace, supposit prn - cont. to monitor and adjust bowel regimen Chronic pain - pt on percocet at home - in ED received fentanyl 50 x2 - as pt currently in pain, will give dilaudid now - if persistently not under control, will consult w/ palliative / pain management Chronic conditions Hypothyroidism - cont. levothyroxine DM type 2 Takes Ozempic/Jardiance/metformin - hold oral hypoglycemics, may stop Jardiance altogether given her UTI/pyelo SSI/4 times daily BGM, consult glycemic pharmacy HTN, HLD - hold lisinopril as BP low in ED - cont. atorvastatin, asa Diffuse large B-cell lymphoma - follows w/ [facility] Dr. Archibald - consulted during recent last admission as pt was neutropenic - at that time plan was for bone marrow biopsy to be arranged as outpt - plan for PET scan as outpt Code:Full History of Present Illness Chief Complaint: UTI Primary Care Provider: Héctor Johnson MD 59 F with hx of Diffuse Large B-cell lymphoma (follows w/ [facility] Dr. Archibald), hypothyroidism, DM2, HLD, HTN who was seen by PCP on 07/18 for UTI symptoms. She was contacted and advised to present to Ed as her urine cultx was found positive for ESBL E.coli. Pt reports having fever this AM 102.5 F. Reports abdominal pain radiating to her legs and taking percocent at home. In the BP was low, she re ceived NS and was started on Ertapenem. CT abd pelvis obtained and consistent w/ pyelonephritis. For pain she received fentanyl 50 x2 in the ED. She says it worked initially but when she moves she is in pain again. Allergies Allergy/AdvReac Type Severity Reaction Status Date / Time adhesive tape Allergy Mild Rash/Itchin Verified 06/25/24 15:52 ess Home Medications Medication Instructions Recorded Confirmed Type metformin 1,000 mg tablet 1,000 mg PO BID ##0 09/21/09 07/20/24 History aspirin 81 mg tablet,delayed 81 mg PO QAM ##0 08/15/13 07/20/24 History release atorvastatin 20 mg tablet (Lipitor) 20 mg PO HS #0 tabs 08/15/13 07/20/24 Hist ory citalopram 20 mg tablet 20 mg PO QAM ##0 08/15/13 07/20/24 History alendronate 70 mg tablet 70 mg PO Q7D 08/05/23 07/20/24 History empagliflozin 25 mg tablet 25 mg PO QAM 08/05/23 07/20/24 History (Jardiance) levothyroxine 150 mcg tablet 150 mcg PO QAM 08/05/23 07/20/24 History omeprazole 40 mg capsule,delayed 40 mg PO QAM 08/05/23 07/20/24 History release semaglutide 1 mg/dose (4 mg/3 mL) 1 mg subcut Q7D 08/05/23 07/20/24 History subcutaneous pen injector (Ozempic) apple cider vinegar 500 mg tablet 500 mg PO QAM ##0 08/24/23 07/20/24 History cranberry 500 mg capsule 500 mg PO QAM ##0 08/24/23 07/20/24 History lisinopril 10 mg tablet 10 mg PO QAM ##0 09/15/23 07/20/24 History tizanidine 4 mg tablet 4 mg PO BID PRN Spasms 09/15/23 07/20/24 History oxycodone-acetaminophen 5 mg-325 1 tab PO Q6H PRN pain or fever 12/22/23 07/20/24 History mg tablet nitrofurantoin 100 mg PO DAILY 02/15/24 07/20/24 History monohydrate/macrocrystals 100 mg capsule (Macrobid) solifenacin 10 mg tablet (Vesicare) 10 mg PO QAM 02/15/24 07/20/24 History diphenhydramine HCl 25 mg capsule 25 mg PO HS 06/25/24 07/20/24 History (Benadryl) fluoride (sodium) 1.1 % dental 1 applic dental DAILY 06/25/24 07/20/24 History paste gabapentin 300 mg capsule 300 mg PO BID 06/25/24 07/20/24 History melatonin 10 mg tablet 20 mg PO HS 06/25/24 07/20/24 History L.acidop,casei,lactis,rham-B.lact,maria guadalupe 1 cap PO DAILY #14 caps 06/27/24 07/20/24 Rx 625 mg (10 billion cell) capsule (Advanced Probiotic) blood-glucose meter (OneTouch #1 ea 06/27/24 07/20/24 Rx Verio Flex Meter) gabapentin 100 mg capsule 100 mg PO BID #14 caps 06/27/24 07/20/24 Rx insulin degludec 100 unit/mL (3 32 unit subcut HS 07/20/24 07/20/24 History mL) subcutaneous pen (Tresiba FlexTouch U-100 insulin) Past Med/Surg History Problem List Pyelonephritis UTI (urinary tract infection) Parotitis Intractable nausea and vomiting (Acute) Hypomagnesemia (Acute) Neutropenia (Acute) Facial cellulitis (Acute) Neutropenia Facial cellulitis E coli infection UTI (urinary tract infection) Generalized weakness Cellulitis of chest wall Febrile neutropenia History of ESBL E. coli infection Complicated UTI (urinary tract infection) B-cell lymphoma (Chronic 08/05/23) Asthma Splenic mass Lymphadenopathy Mass of buttock (Acute) Lumbar radiculopathy (Acute) Back pain (Acute) UTI (urinary tract infection) Renal calculi Lymphoma dx 2023 Lumbar radicular pain DM2 (diabetes mellitus, type 2) (Chronic) HTN (hypertension) (Chronic) "pt only on meds for her kidneys and diabetes, no high blood pressure" HLD (hyperlipidemia) (Chronic) GERD (gastroesophageal reflux disease) (Chronic) Hypothyroidism (Chronic) Depression (Chronic) Delivered by section (Chronic) x2 H/O hernia repair (Chronic) 1996,1998,2007 H/O dilation and curettage (Chronic) H/O tubal ligation (Chronic) Hx of tonsillectomy (Chronic) Medical History FELICITY (obstructive sleep apnea) Nausea and vomiting after administration of anesthetic agent 2005, after , "but had eaten prior to procedure, procedure was an emergency, no issues since then" History of frequent urinary tract infections has had 4 since 02/2023 Hx of renal calculi Hx of migraines 32 years ago, had "migraine induced seizure, no seizures since then." Surgical History Port-A-Cath in place (08/30/23) Insertion Access Port with Fluoroscopy, Left subclavian (Left) - [facility] Schwartz, S/P cystoscopy with ureteral stent placement w/laser destruction of kidney stone Hx of colonoscopy Family History Mother Cancer skin cancer Diabetes Hypertension Brother Colorectal cancer Hypertension Father Hypertension Other Mass of buttock Social History Smoking Status: Former smoker Tobacco Type: Cigarettes Second Hand Exposure: No; Do You Dip or Chew Tobacco: No; Hx Alcohol Use: Yes Alcohol type: other Alcohol type Comment: wine coolers Hx Substance Use: No Preferred Language: Thai Communication Ability: Effective Ethanol Maintenance Mechanic Required: No Beliefs That Will Affect Care: None Current Living Situation: Spouse Current Living Situation Comment: , son, grandchild current occupational status: other 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 Feels Safe at Home: Yes Assistive Devices: None Review of Systems Review of Systems: All systems reviewed & are unremarkable except as noted in Subjective Physical Exam Physical Exam: General- WD/WN F, uncomfortable, in pain HEENT - NC/AT, EOMI Lungs- clear breath sounds b/l, no rales/wheezes Heart- normal rate, regular rhythm; no murmurs Abdomen- +bowel sounds, + some distention, tender Neuro- alert, oriented x 3; no gross focal neurologic deficits Skin- warm & dry Results & Data Results & Data Vital Signs (Past 12 Hours) Vital Signs Temp Pulse Pulse Resp BP BP Pulse Ox 07/20/24 17:04 101 H 15 90 07/20/24 17:04 97 H 24 117/67 90 07/20/24 14:10 36.6 C 87 18 83/53 L 95 O2 Del Method 07/20/24 17:04 Room Air 07/20/24 17:04 Room Air 07/20/24 14:10 Room Air Laboratory Results 07/20/24 07/20/24 Range/Units Unknown 15:11 WBC 5.34 (4.8-10.8) K/ul RBC 3.31 L (4.20-5.40) M/uL Hgb 10.7 L (12.0-16.0) g/dl Hct 31.9 L (37.0-47.0) % MCV 96.4 (80.0-100.0) fL MCH 32.3 (25.0-34.0) pg MCHC 33.5 (32.0-36.0) g/dL RDW Std Deviation 48.9 H (36.4-46.3) fL RDW Coeff of Lisset 13.6 (11.5-14.5) % Plt Count 185 (130-400) K/uL MPV 8.6 L (9.4-12.4) fL Immature Gran % (Auto) 0.4 % Neut % (Auto) 82.8 % Lymph % (Auto) 5.4 % Hyde % (Auto) 11.0 % Eos % (Auto) 0.2 % Baso % (Auto) 0.2 % Neut # (Auto) 4.42 (1.40-6.50) K/uL Lymph # (Auto) 0.29 L (1.20-3.40) K/uL Hyde # (Auto) 0.59 (0.11-0.59) K/uL Eos # (Auto) 0.01 (0.00-0.50) K/uL Baso # (Auto) 0.01 (0.00-0.20) K/uL Immature Gran # (Auto) 0.02 (0.01-0.20) K/uL PT 10.6 (9.0-12.0) Seconds INR 1.0 (0.9-1.1) Sodium 131 L (136-145) mmol/L Potassium 4.2 (3.5-5.1) mmol/L Chloride 100 (98-107) mmol/L Carbon Dioxide 21 (21-32) mmol/L Anion Gap 10 (3-11) BUN 34 H (6-23) mg/dl Creatinine 0.80 (0.6-1.2) mg/dl Est Cr Clr Drug Dosing Not Reportable eGFR 85.89 BUN/Creatinine Ratio 42.5 H (10-20) Glucose 168 H (70-99(Fasting)) mg/dl Lactate 0.7 (0.4-2.0) mmol/L Calcium 9.1 (8.6-10.3) mg/dl Total Bilirubin 0.7 (0.2-1.0) mg/dl AST 11 L (13-39) U/L ALT 11 (7-52) U/L Alkaline Phosphatase 51 (34-104) U/L Troponin I High Sens 11.7 (0-14) pg/ml Total Protein 6.4 (6.0-8.3) gm/dl Albumin 3.8 (3.4-5.0) gm/dl Globulin 2.6 (2.5-4.0) gm/dl Albumin/Globulin Ratio 1.5 (0.9-2) Lipase 11 (11-82) U/L Procalcitonin 1.69 H (0-0.5) ng/ml Medications Administered FINDINGS: Limitations: None. Lung bases: No abnormality noted. Pleural space: No visualized pleural effusion or pneumothorax. Heart: No abnormality noted. Mediastinum: Stable small hiatal hernia. ABDOMEN: Liver: No abnormality noted. Gallbladder and bile ducts: The gallbladder is moderate to markedly distended. No calcified stones. No ductal dilatation. No gas. Pancreas: Homogeneous enhancement. No mass, inflammation or ductal dilation. Spleen: No significant abnormality noted. Adrenals: No significant abnormality noted. Kidneys and ureters: There is right greater than left diffuse urothelial thickening of the urinary tracts. No stone, gas or hydronephrosis. Simple right renal cyst/s. No simple cyst follow-up necessary. Left kidney appears normal. No renal stone, hydronephrosis or perinephric fluid. Stomach and bowel: Moderate to large amounts of stool throughout the redundant colon. PELVIS: Appendix: No findings to suggest acute appendicitis. Bladder: There is mild thickening of the urinary bladder. No stone or gas. Reproductive: No abnormalities noted. ABDOMEN and PELVIS: Intraperitoneal space: No free air. No significant fluid collection. Bones/joints: Degenerative changes noted in the spine. Chronic appearing superior endplate compression deformity of L3. No acute osseous abnormality. Soft tissues: There are small bilateral fat containing inguinal hernias. Intact ventral hernia repair. Vasculature: Atherosclerotic calcification of the aorta and branches. No aneurysm. Lymph nodes: No pathologically enlarged lymph nodes. IMPRESSION: 1. Pyelonephritis and cystitis. 2. Moderately distended gallbladder. This can be related to prolonged fasting. Correlate clinically. Macro impression large amounts of formed stool throughout the redundant colon without obstruction or thickening.
--- NOTE | 2024-07-20 18:11 | Electrocardiogram Report ---
Test Reason : Blood Pressure : */* mmHG Vent. Rate : 87 BPM Atrial Rate : 87 BPM P-R Int : 160 ms QRS Dur : 90 ms QT Int : 380 ms P-R-T Axes : 48 15 37 degrees QTcB Int : 457 ms Normal sinus rhythm Normal ECG When compared with ECG of 27-Jun-2024 06:02, No significant change was found Confirmed by Rufino Orozco ([id number]) on 07/20/2024 6:10:52 PM Referred By: Flynn Archibald Confirmed By: Rufino Orozco
[2024-07-20] MEDS ORDERED: bisacodyL 10 MG SUPP PR PRN (18:31)
[2024-07-20] MEDS: HYDROmorphone INJ 0.5 MG/0.5 ML SYR IV STA (18:34)
[2024-07-20] MEDS: SODIUM CHLORIDE 0.9% 1,000 ML IV SCH (18:34)
--- OUTSIDE RECORDS SUMMARY | 2024-07-20 19:01 | External Medical Summary | Summary of Care ---
Author Name Unknown Organization [facility] Address [address] [facility] [place] [address] Phone [phone] Care Team Providers Care Babbitter Name Role Phone Héctor Johnson MD Primary Care Provider [phone] Reason for Visit * Reason Onset Date Comments Medication Pre-auth 07/12/2024 Sotero Encounter Details Date Type Department Care Team (Late st Contact Info) Description 07/12/2024 Telephone [facility] [place] [address] [place] [phone] Héctor Johnson MD [address] [facility] [place] [address] Medication Pre-auth (Sotero) Allergies Active Allergy Reactions Criticality Noted Date Comments Adhesive Tape Rash 04/22/2014 documented as of this encounter (statuses as of 07/16/2024) Medications ASPIRIN 81 MG PO TABSIndications:DM type 2, goal A1c below 7 ONE DAILY 30 Tab 5 04/01/20 11 Active Cranberry 1000 MG Capsule Start: 01/13/19 9:00:00 EDT, PO, Daily 01/14/20 19 Active Apple Cider Vinegar 188 MG CAPS Start: 01/13/19 14:02:00 EDT, Apple cider vinegar, PO, bid 01/14/20 19 Active Lancets (ONETOUCH DELICA PLUS [id number]) MISCIndications:Ty pe 2 diabetes mellitus with hemoglobin A1c goal of less than 8.0% (HCC) Use to check blood sugar up to 3 times per day E11.9 100 Each 11 01/17/20 20 Active Pen [place] 32G X 4 MMIndications:Type 2 diabetes mellitus with hemoglobin A1c goal of less than 8.0% (HCC) Use as directed. For use with Tresiba insulin pen. 100 Each 3 02/11/20 21 Active Ibuprofen 200 MG Oral Tablet (Motrin) Take 3 Tablets by mouth 2 times a day as needed. In the morning and possibly 400mg mid day if needed. Active Ibuprofen PM 200-38 MG Oral Tablet (Ibuprofen-diphenh ydrAMINE Cit) Take 2 Tablets by mouth at bedtime as needed. Active Ondansetron 4 MG Oral Tablet Disintegrating (Zofran) Place 1 Tablet on tongue as needed. 05/15/20 21 Active OneTouch Verio In Vitro Strip (Glucose Blood)Indications: Type 2 diabetes mellitus with hemoglobin A1c goal of less than 8.0% (HCC) Test blood sugar 2 to 3 times a day and as needed. E11.9 100 Strip 11 08/20/19 22 Active SUMAtriptan Succinate 100 MG Oral TabletIndications: Migraine with aura ONE AT ONSET OF HEADACHE; MAY REPEAT DOSE IN TWO HOURS IF NEEDED; NO MORE THAN 2 PILLS/24 HRS OR 4 PILLS/WEEK 6 Tablet 2 10/24/19 23 Active Naloxone HCl 4 MG/0.1ML Nasal Liquid (Narcan Nasal) Administer 1 spray into 1 nostril for suspected opioid overdose. Seek immediate medical attention. [email or web address] 1 Each 3 03/01/20 23 Active tiZANidine HCl 4 MG Oral CapsuleIndications :Sprain lumbar region, initial encounter,Acute left-sided low back pain with left-sided sciatica Take 1 Capsule by mouth 2 times a day as needed for Muscle spasms. hold for sedation 28 Capsule 1 03/31/20 23 Active Docusate Sodium 100 MG Oral Capsule (Colace) Take 1 Capsule by mouth in the morning. 08/17/19 24 Active [facility] Purelax 17 GM Oral Packet Take 1 Packet by mouth daily as needed. 08/17/19 24 Active Tylenol PM Extra Strength 500-25 MG Oral Tablet (diphenhydrAMINE-A PAP (sleep)) Take 1 Tablet by mouth 3 times a day as needed for Itching. Active Tresiba FlexTouch 100 UNIT/ML Subcutaneous Solution Pen-injector (Insulin Degludec)Indicatio ns:Type 2 diabetes mellitus with hemoglobin A1c goal of less than 8.0% (HCC) 36 units nightly 5 Each 3 09/02/19 24 Active Additional Information Patient taking differently: 32 units nightly, Reported on 07/09/2024 Omeprazole 40 MG Oral Capsule Delayed Release (PriLOSEC)Indicati ons:Gastroesophage al reflux disease without esophagitis TAKE 1 CAPSULE BY MOUTH EVERY DAY 1 HOUR BEFORE THE FIRST MEAL OF THE DAY 30 Capsule 5 01/23/20 24 Active Nitrofurantoin Monohyd Macro 100 MG Oral Capsule (Macrobid) Take 1 Capsule by mouth in the morning and 1 Capsule before bedtime. With food.. 90 Capsule 1 01/27/20 24 Active Additional Information Patient not taking.Reported on 05/08/2024 Solifenacin Succinate 10 MG Oral Tablet (VESIcare)Indicati ons:Urinary incontinence, unspecified type Take 1 Tablet by mouth in the morning. 90 Tablet 3 02/01/20 24 Active Levothyroxine Sodium 150 MCG Oral Tablet (Levoxyl)Indicatio ns:Acquired hypothyroidism TAKE 1 TABLET BY MOUTH EVERY DAY AT LEAST 30 MIN BEFORE BREAKFAST OR OTHER MEDICATION 90 Tablet 2 02/20/20 24 Active Alendronate Sodium 70 MG Oral Tablet (Fosamax) TAKE 1 TAB BY MOUTH ONCE A WEEK W/ 8OZ. WATER 30MIN BEFORE 1ST MEAL OF DAY. REMAIN UPRIGHT X30MIN 4 Tablet 11 02/20/20 24 Active Jardiance 25 MG Oral Tablet (Empagliflozin)Ind ications:Type 2 diabetes mellitus with hemoglobin A1c goal of less than 8.0% (HCC) TAKE 1 TABLET BY MOUTH EVERY DAY IN THE MORNING 30 Tablet 5 02/20/20 24 Active Lisinopril 10 MG Oral Tablet (Prinivil)Indicati ons:HTN, goal below 130/80 TAKE 1 TABLET BY MOUTH EVERY DAY IN THE MORNING 90 Tablet 1 02/23/20 24 Active metFORMIN HCl 1000 MG Oral Tablet (Glucophage)Indica tions:Dyslipidemia , goal LDL below 100 TAKE 1 TABLET BY MOUTH TWICE A DAY 180 Tablet 1 02/23/20 24 Active Citalopram Hydrobromide 20 MG Oral Tablet (CeleXA)Indication s:Depression, unspecified depression type TAKE 1 TABLET BY MOUTH EVERY DAY IN THE MORNING 90 Tablet 1 02/23/20 24 Active Atorvastatin Calcium 20 MG Oral Tablet (Lipitor)Indicatio ns:Dyslipidemia, goal LDL below 100 TAKE 1 TABLET BY MOUTH EVERY DAY 90 Tablet 1 02/23/20 24 Active Mupirocin 2 % External Ointment (Bactroban) Apply to wounds in scalp three times a day 22 g 5 03/13/2024 10:09 AM EDT 03/13/20 Active Additional Information Patient not taking.Reported on 05/08/2024 Doxycycline Hyclate 100 MG Oral Capsule Take 1 Capsule by mouth in the morning and 1 Capsule before bedtime. 60 Capsule 2 03/13/2024 10:09 AM EDT 03/13/20 Active Additional Information Patient not taking.Reported on 05/08/2024 Ozempic (1 MG/DOSE) 4 MG/3ML Subcutaneous Solution Pen-injector (Semaglutide (1 MG/DOSE))Indicatio ns:Dyslipidemia, goal LDL below 100 INJECT 1 MG UNDER THE SKIN ONCE A WEEK 9 mL 1 04/05/20 24 Active Ventolin HFA 108 (90 Base) MCG/ACT Inhalation Aerosol SolutionIndication s:Wheezing Inhale 2 Puffs by mouth every 4 hours as needed for Wheezing or Shortness of Breath. 18 g 05/08/20 24 Active Probiotic Daily Oral Capsule Take 1 Capsule by mouth in the morning. Active oxyCODONE-Acetamin ophen 5-325 MG Oral Tablet (Percocet) Take 1 Tablet by mouth every 6 hours as needed. 09/02/19 24 Active FreeStyle Sotero 3 [place] Device Use as directed. Active FreeStyle Sotero 3 SensorIndications: Type 2 diabetes mellitus with hemoglobin A1c goal of less than 8.0% ([facility]) Use as directed every 14 days. E11.9 6 Each 3 07/09/19 25 Active documented as of this encounter (statuses as of 07/16/2024) Active Problems Problem Noted Date Diagnosed Date Non-Hodgkin lymphoma 07/09/2024 Assessment & Plan (07/09/2024 6:38 PM EST): In remission and following with Oncology, no changes Onychomycosis 07/09/2024 Assessment & Plan (07/09/2024 6:39 PM EST): Patient has previously been treated but when she developed cancer and had gone chemotherapy there was concern about liver dysfunction and so she has not been treated since then. She would like to see podiatry for 2nd opinion. Hospital discharge follow-up 07/09/2024 Assessment & Plan (07/09/2024 6:39 PM EST): Patient is finishing antibiotics today. There is no signs of cellulitis on exam today. Other symptoms also have not returned. Patient counseled on reasons to seek additional medical care. Splenic mass 02/01/2024 Diffuse large B-cell lymphom a of lymph nodes of multiple regions 02/01/2024 Assessment & Plan (07/09/2024 6:38 PM EST): In remission and following with Oncology, no changes Port-A-Cath in place 08/30/2023 Chronic bilateral thoracic back pain 07/26/2022 Encounter for examination fo r normal comparison and control in clinical research program 01/03/2020 Overview (09/15/2020): [employer]: A Randomized Controlled Trial (Project # [id number]). The [employer] program provides food-insecure diabetics with healthy food for their entire household (2 meals/ day X 5 days/week). The program also provides education on food preparation, healthy living, and diabetes self management. The research measures the effects of the program on patient health and wellbeing. Subject will begin the FFF program December 2019. Contact Information: Cogeneration Operator: Dr. Palmer Anders ([phone]) CRC: Glory Arteaga ([phone]) RA: Chiara Laura ([phone]) Diagnosis changed due to Research Module. Go to Snapshot for study details. Gastroesophageal reflux disease without esophagi tis 02/12/2016 HTN, goal below 130/80 02/12/2016 Type 2 diabetes mellitus wit h hemoglobin A1c goal of less than 8.0% 07/23/2013 Overview (09/25/2015): ICD-10 update of inactive term Assessment & Plan (07/09/2024 6:38 PM EST): Last A1c controlled, no changes FELICITY (obstructive sleep apnea) 11/21/2012 Overview (12/29/2012): AHI 11.5 on 11/09/12 AHP 12/29/12 auto cpap set at 10 cm H20 Depression 11/02/2012 Migraine with aura 07/06/2011 Abnormal results of liver function studies 06/08 Overview (06/08/2010): FATTY LIVER BY PREVIOUS U/S, CT Localized osteoarthrosis not specified whether primary or secondary, unspecified site 06/08/2010 Overview (06/08/2010): KNEES Other specified disorder of gallbladder 02/14/20 08 Overview (06/08/2010): SLUDGE ON U/S, NORMAL HIDA 2007 Varicose vein of leg 12/04/2007 Dyslipidemia, goal LDL below 100 01/17/2006 Calculus of kidney 02/15/2005 Overview (06/08/2010): NON OBSTRUCTIVE CALCULUS RIGHT KIDNEY 2008 Acquired hypothyroidism 07/18/2003 documented as of this encounter (statuses as of 07/16/2024) Resolved Problems Problem Noted Date Diagnosed Date Resolved Date Recurrent major depressive disorder 11/09/2021 05/31/2023 Controlled substance agreement signed 04/01/2016 11/23/2017 HTN, goal below 140/90 01/03/201202/11 GERD (gastroesophageal reflux disease) 10/04/2011 02/12/2016 DM type 2, not at goal 04/21/200912/24 Tension headache 03/10/2009 06/08/2010 Other screening mammogram 04/08/2008 Overview (04/08/2008): 04/01/2008--NORMAL Mammogram--Dr. Wilson ordered LIVER DISORDER NOS-fatty liver 02/14/2008 06/08/2010 Overview (02/23/2008): 02/23/2008-NML HIDA- Sep08- US--Marked increased echogenicity liver finding consistent diffuse hepatocellular process with focal areas of decreased echogenicity. Although these may represent areas of fatty sparing for further evaluation CT scan is recommended. 2.Question of sludge within the gallbladder. 3. Nonobstructive right renal calculus. - neg H pylori, nmlamylase/lipase, LFT ex ast/alt 53/56 Headache 12/04/2007 06/08/2010 Overview (08/20/2015): 02/09/2008_ better with PT. 12/22/2007_ MRI -nml--Dr.KS [...] Seborrhea capitis 12/04/2007 06/08/2010 INFORMATION 06/20/2007 06/08/2010 Overview (01/31/2009): 12/04/2007: CPE, 01/31/2009 06/20/2007:TE:pt canceled appt sleep clinic and refused to pool. Major depressive disorder, s rosalia episode, mild 04/18/2007 06/08/2010 Overview (12/04/2007): 12/04/2007: off since ?. On prozac, was inc to 30 mg [id number].Still.,wean 04/18/2007 Screening for malignant neoplasm of cervix 01/16/2007 06/08/2010 Overview (01/31/2009): PAP--?flg08--ZW.Grill.----is satish DrGrill-- Del , had post Fu and pap . Viral warts 01/16/2007 06/08/2010 Overview (02/28/2017): ICD-10 update of inactive term NEPHRITIS NOS IN OTH DIS-dm 03/31/2006 06/08/2010 Overview (04/17/2007): :A neg MICROALBUMIN 03/29/06 132* ,start lisimopril. 09-26-07: 30, nml bmp, alt, 11 MICROALBUMIN 01/14/06 62* ,will RPT in 4 wks.- 33. DIABETES-ANTEPARTUM 11/02/2005 06/08/19 11 POLYHYDRAMNIOS-ANTEPART 10/06/200505/30 Type 2 diabetes mellitus wit h hemoglobin A1c goal of less than 7.0% 03/17/2005 07/23/2013 ADVANCE DIRECTIVE INFORMATION 11/09/2004 04/02/2024 JOINT PAIN-L-LEG(aka KNEE) 07/20/2003 0 06/08/2010 LIPOMA SKIN NEC 07/20/2003 06/08/2010 Obesity 07/18/2003 12/07/2018 documented as of this encounter (statuses as of 07/16/2024) Immunizations Name Administration Dates Next Due COVID-19 mRNA, LNP-s, No Pre serve, 2-Dose Series (Advanced Oncotherapy) 05/01/2021 Hepatitis B, 20+ yrs 11/28/1995,07/28/1994,05/30 PPD 07/12/2016, 7,02/18/2009,01/31,03/31/2006,04/13/2005 Pneumococcal Conjugate Vacc, 13 Valent (Prevnar) 03/04/2015 Pneumococcal Polysaccharide PPV23 (Pneumovax) 03/17/2005 Seasonal Influenza Vac., MDV , IM, 0.5 mL (Fluzone) 03/25/2016,02/10/2014,03/28/2013,02/27,03/12/2011,02/16/2010,02/18/2009 ,03/20/2008,04/18/2007,04/12/2006,02/27 Seasonal Influenza, PF, 6 M & above, IM , (FluLaval or Fluzone) 03/31/2023,03/16/2021,03/13/2020,03/26,02/27/2018,03/25/2017 Seasonal Influenza, Quadriva lent, No Preserve, IM 03/25/2022 Seasonal Influenza, Trivalen t, (IIV3), PF, (Fluzone) 02/01/2024 TDAP, Age 7 and older, IM (Adacel) 05/04/2007 documented as of this encounter Social History Tobacco Use Types Packs/Day Years Used Date Smoking Tobacco: Former Cigarettes 0.5 15 0 05/30/1982 - 05/30/1997 Smokeless Tobacco: Never Alcohol Use Standard Drinks/Week Comments Yes 0 (1 standard drink = 0.6 oz pur e alcohol) Once every few months PHQ-2 Answer Date Recorded PHQ Adult Total Score 0 07/09/2024 Hunger Vital Sign Answer Date Recorded Within the past 12 months, y ou worried that your food would run out before you got the money to buy more. Never true 02/01/20 24 Within the past 12 months, t he food you bought just didn't last and you didn't have money to get more. Never true 02/01/2024 Childcare Answer Date Recorded Do you feel overwhelmed with taking care of a child, family member or friend? No 02/01/2024 Does your family need help f inding childcare? (Household - for ages 0-17 years) Not on file 02/01/2024 Clothing Answer Date Recorded Have you been unable to get clothing when it was really needed? No 02/01/2024 Is your family able to get c lothes or diapers when needed? (Household - for ages 0-17 years) Not on file 02/01/2024 Personal Safety Answer Date Recorded Do you feel unsafe or have concerns for your saf ety? No 02/01/2024 Do you have concerns for you r family's safety? (Household - for ages 0-17 years) Not on file 02/01/2024 Utilities Answer Date Recorded Do you have trouble paying y our heating, water, or electric bill? No 02/01/2024 Is your family able to pay t he heat, water, or electric bill? (Household - for ages 0-17 years) Not on file 02/01/2024 Does your family have access to good internet? (Household - for ages 0-17 years) Not on file 02/01/2024 Employment Status Answer Date Recorded Are you unemployed or without regular income? No 02/01/2024 Does the household have a re gular source of income? (Household - for ages 0-17 years) Not on file 02/01/2024 Social Connections Answer Date Recorded How often do you feel lonely or isolated from th ose around you? Never 02/01/2024 Financial Resource Strain Answer Date R ecorded Do you have any trouble payi ng for your medications, or do you think you might in the future? No 02/01/2024 Does your family have troubl e paying for medicine? (Household - for ages 0-17 years) Not on file 02/01/2024 Transportation Needs Answer Date Record ed Do you have trouble getting a ride to medical visits or work? (Adult - for ages 18 years and over) Not on file 02/01/2024 Does your family have a hard time getting a ride to doctors visits? (Household - for ages 0-17 years) Not on file 02/01/2024 Has lack of transportation k ept you from medical appointments, meetings, work, or from getting things needed for daily living? Check all that apply. No 02/01/2024 Do you (or your family) have trouble finding or paying for a ride (transportation)? (Household - for ages 0-17 years) Not on file 02/01/2024 Housing Stability Answer Date Recorded Do you currently live in a s helter or have no steady place to sleep at night? No 02/01/2024 Do you think you are at risk of becoming homeless? (Adult - for ages 18 years and over) Not on file 02/01/2024 Does your family worry about paying for your home or becoming homeless? (Household - for ages 0-17 years) Not on file 0 02/01/2024 Are you homeless or worried that you might be in the future? No 02/01/2024 Are you (or your family) roberta eless or worried that you might be in the future? (Household - for ages 0-17 years) Not on file Food Insecurity Answer Date Recorded Do you need food for this week? No 02/01/2024 Are you able to get enough f ood for your family? (Household - for ages 0-17 years) Not on file 02/01/2024 Does your family need food t his week? (Household - for ages 0-17 years) Not on file 02/01/2024 Do you always have enough fo od for your family? (Household - for ages 0-17 years) Not on file 02/01/2024 Food Insecurity Answer Date Recorded Within the past 12 months, y ou worried that your food would run out before you got the money to buy more. Never true 02/01/20 24 Within the past 12 months, t he food you bought just didn't last and you didn't have money to get more. Never true 02/01/2024 Do you need food for this week? No 02/01/2024 Comments No Sex and Gender Information Value Date Recorded Sex Assigned at Female 01/17/2019 12:40 PM EDT Legal Sex Female 5:51 AM EST Gender Identity Female 01/17/2019 12:40 PM EDT Sexual Orientation Straight 01/17/2019 12 :40 PM EDT documented as of this encounter Miscellaneous Notes * Telephone Encounter - Colleen Garcia CMA - 07/16/2024 8:39 AM EST Sotero has been denied. Rationale not yet received. * Telephone Encounter - Colleen Garcia CMA - 07/12/2024 9:43 AM EST [place] submitted for Aaron Bey thru [facility] Rosales: [id number] documented in this encounter Plan of Treatment Upcoming Encounters Date Type Department Care Team (Late st Contact Info) Description 07/31/2024 10:00 AM EST Office Visit [facility] [address] [place] [phone] Héctor Johnson MD [place] [address] 08/21/2024 9:45 AM EDT Hospital Encounter [facility]O [facility], Endoscopy [address] [place] [address] Genoveva Bauer, [address] [place] [address] 08/21/2024 9:45 AM EDT - 08/21/2024 10:15 AM EDT Surgery ENDO [facility], Endoscopy [address] [place] [address] Genoveva Bauer DO [address] [place] [id number] COLONOSCOPY FLEXIBLE PROXIMAL DIAGNOSTIC Scheduled Procedures Name Priority Associated Diagnoses Date/Ti me COLONOSCOPY FLEXIBLE PROXIMAL DIAGNOSTIC Recall Family history of colon cancer 08/21/2024 9:45 AM EDT Health Maintenance Due Date Last Done Comments Zoster Vaccines (1 of 2) 1986 HPV/Co-Test 1997 Fecal Occult Blood Test 2012 Sigmoidoscopy 2012 Pneumococcal Vaccine: 50+ Years (3 of 3 - PPSV23, PCV20 or PCV21) 04/29/2015 03/04/2015, 03/17/2005 DTap/Tdap Vaccines (2 - Td or Tdap) 05/04/2017 05/04/2007 Cologuard 12/15/2020 12/15/2017, 12/08/2017 COVID-19 Vaccine (2 - Pfizer risk series) 05/22/2021 05/01/2021 Cervical Cancer Screening 03/10/2023 Pap Smear 03/10/2023 03/10/2020, 02/27, 02/10/2016, Additional history exists Colonoscopy 07/09/2023 07/09/2022, 07/09/2022 Colorectal Cancer Screening 07/09/2023 Mammogram 08/26/2023 08/25/2022, 07/29, 11/28/2017, Additional history exists B-12 02/03/2024 02/02/2023, 01/29, 01/12/2021, Additional history exists Diabetic Eye Exam 06/27/2024 06/27/2023, , 10/04/2018, Additional history exists HbA1c 07/31/2024 02/01/2024, 09/0 10/2022, 07/26/2022, Additional history exists TSH 01/31/2025 02/01/2024, 09/0 10/2022, 02/22/2022, Additional history exists PAP SMEAR-EVERY 5 YRS,AGES 21-100 03/10/2025 03/10/2020, 03/10/2020, 02/10/2016, Additional history exists Albumin/Creatinine Ratio 05/09/2025 024, 02/02/2023, 02/22/2022, Additional history exists GFR 05/09/2025 05/09/2024, 09/0 08/2023, 01/02/2024, Additional history exists Depression Monitoring 07/09/2025 07/09/2024 Diabetic Foot Exam 07/09/2025 07/09/2024, 0 07/26/2022, 03/16/2021, Additional history exists Lipid Panel 01/31/2029 02/01/2024, 01/29, 07/28/2020, Additional history exists Hepatitis B Vaccine Completed 11/28/1995, 07/28/1994, 05/30/1994 RETIRED - COLONOSCOPY-ANNUAL AGES 18-100 Discontinued 07/09/2022, 07/09/2022 Influenza Vaccine (FLU shot) Completed 02/01/2024, 03/31/2023, 03/25/2022, Additional history exists HPV (Gardasil) Vaccine Aged Out No lo nger eligible based on patient's age to complete this topic MENINGOCOCCAL (MENACTRA/MENVEO) Aged Out No longer eligible based on patient's age to complete this topic Meningitis B Vaccine (Bexsero/Trumemba) Aged Out No longer eligible based on patient's age to complete this topic documented as of this encounter Medical Devices Not on filedocumented as of this encounter Advance Directives Documents on File Type Date Recorded Patient Intake Clerk Expl anation Advance Directives and Living Will 11/02/2005 Power of Train Driver 11/02/2005 Care Teams Babbitter Relationship Specialty Start Date End Date Héctor Johnson MD [address] [place] [address] [phone] PCP - General Family Medicine 05/20/21 documented as of this encounter
--- OUTSIDE RECORDS SUMMARY | 2024-07-20 19:01 | External Medical Summary | Summary of Care ---
Author Name Unknown Organization [facility] Address [address] [place] [address] Phone [phone] Care Team Providers Care Anaesthetic Technician Name Role Phone Héctor Johnson MD Primary Care Provider [phone] [phone] Reason for Visit * Reason Comments Outpatient Testing Encounter Details Date Type Department Care Team (Late st Contact Info) Description 07/18/2024 1:20 PM EST Laboratory Laboratory, [place] [address] [place] [address] [facility] [address] [place] [address] Recurrent UTI Allergies Active Allergy Reactions Criticality Noted Date Comments Adhesive Tape Rash 04/22/2014 documented as of this encounter (statuses as of 07/18/2024) Medications ASPIRIN 81 MG PO TABSIndications:DM type 2, goal A1c below 7 ONE DAILY 30 Tab 5 04/01/20 11 Active Cranberry 1000 MG Capsule Start: 01/13/19 9:00:00 EDT, PO, Daily 01/14/20 19 Active Apple Cider Vinegar 188 MG CAPS Start: 01/13/19 14:02:00 EDT, Apple cider vinegar, PO, bid 01/14/20 19 Active Lancets (ONETOUCH DELICA PLUS [id number]) MISCIndications:Ty pe 2 diabetes mellitus with hemoglobin A1c goal of less than 8.0% (HCC) Use to check blood sugar up to 3 times per day E11.9 100 Each 11 01/17/20 20 Active Pen [place] 32G X 4 MMIndications:Type 2 diabetes mellitus [...] suspected opioid overdose. Seek immediate medical attention. https://www.PlayyOn.com/[email or web address]? [email or web address] 1 Each 3 03/01/20 23 Active tiZANidine [...] g 5 03/13/2024 10:09 AM EDT 03/13/20 24 Active Additional Information Patient not taking.Reported [...] needed. 09/02/19 24 Active FreeStyle Sotero 3 [place] Device Use as directed. Active FreeStyle Sotero 3 SensorIndications: Type 2 diabetes mellitus with hemoglobin A1c goal of less than 8.0% ([facility]) Use as directed every 14 days. E11.9 6 Each 3 07/09/19 25 Active documented as of this encounter (statuses as of 07/18/2024) Active Problems Problem Noted Date Diagnosed Date [...] research program 01/03/2020 Overview (09/15/2020): [employer]: A Randomized Controlled Trial (Project # [id number]). The Fresh Food Farmacy program provides food-insecure diabetics with healthy food for their entire household (2 meals/ day X 5 days/week). The program also provides education on food preparation, healthy living, and diabetes self management. The research measures the effects of the program on patient health and wellbeing. Subject will begin the FFF program December 2019. Contact Information: Rotary Furnace Tender: Dr. Palmer Anders ([phone]) CRC: Glory Arteaga ([phone]) RA: Chiara Laura ([phone]) Diagnosis changed due to Research Module. Go to Snapshot for study details. Gastroesophageal reflux disease without esophagi tis 02/12/2016 HTN, goal below 130/80 02/12/2016 Type 2 diabetes mellitus wit h hemoglobin A1c goal of less than 8.0% 07/23/2013 Overview (09/25/2015): ICD-10 update of inactive term Assessment & Plan (07/09/2024 6:38 PM EST): Last A1c controlled, no changes EFLICITY (obstructive sleep apnea) 11/21/2012 Overview (12/29/2012): AHI [...] as of this encounter (statuses as of 07/18/2024) Resolved Problems Problem Noted Date Diagnosed Date [...] (08/20/2015): 02/09/2008_ better with PT. 12/22/2007_ MRI -nml-- [...] On prozac, was inc to 30 mg Leb07Yb.Still.,wean 04/18/2007 Screening for malignant neoplasm of cervix 01/16/2007 06/08/2010 Overview (01/31/2009): PAP--?gll35--KL.Grill.----is satish DrGrill-- Del , had post Fu [...] as of this encounter (statuses as of 07/18/2024) Immunizations Name Administration Dates Next Due COVID-19 mRNA, LNP-s, No Pre serve, 2-Dose Series ([place]ista) 05/01/2021 Hepatitis B, 20+ yrs 11/28/1995,07/28/1994,05/30 PPD 07/12/2016, 7,02/18/2009,2008,03/31/2006 Pneumococcal Conjugate Vacc, 13 Valent (Prevnar) 03/04/2015 Seasonal Influenza Vac., MDV , IM, 0.5 mL (Fluzone) 03/25/2016,02/10/2014,03/28/2013,2011,03/12/2011,02/16/2010,02/18/2009,1 ,04/18/2007,04/12/2006 Seasonal Influenza, PF, 6 M & above, [...] PM EDT documented as of this encounter Plan of Treatment Upcoming Encounters Date Type Department Care Team (Late st Contact Info) Description 07/31/2024 10:00 AM EST Office Visit [facility] [address] [phone] Héctor Johnson MD [address] [place] [address] 08/21/2024 9:45 AM EDT Hospital Encounter ENDO GE[facility], Endoscopy [address] [place] [phone] Genoveva Bauer DO [address] [place] [address] 08/21/2024 9:45 AM EDT - 08/21/2024 10:15 AM EDT Surgery ENDO GECL[address] [phone] Genoveva Bauer DO [address] [place] [address] COLONOSCOPY FLEXIBLE PROXIMAL DIAGNOSTIC Pending Results Name Type Priority Associated Diagnoses Date /Time CULTURE, URINE, QUANTITATIVE Lab Routine Recurrent UTI 07/18/2024 1:23 PM EST Scheduled Procedures Name Priority Associated Diagnoses [...] 02/22/2022, Additional history exists GFR 05/09/2025 05/09/2024, 08/2023, 01/02/2024, Additional history exists Depression Monitoring [...] as of this encounter Visit Diagnoses Diagnosis Hospital discharge follow-up- Primary Other follow-up examination Type 2 diabetes mellitus with hemoglobin A1c goal of less than 8.0% (HCC) Diffuse large B-cell lymphoma of lymph nodes of multiple regions (HCC) Non-Hodgkin's lymphoma, unspecified body region, unspecified non-Hodgkin lymphoma type (HCC) Onychomycosis Dermatophytosis of nail Recurrent UTI Urinary tract infection, site not specified Family history of colon cancer Family history of malignant neoplasm of gastrointestinal tract documented in this encounter Advance Directives Documents on File Type Date Recorded Patient Credit Portfolio Advisor Expl anation Advance Directives and Living Will 11/02/2005 Power of Net C Developer 11/02/2005 Care Teams Anaesthetic Technician Relationship Specialty Start Date End Date Héctor Johnson MD [address] [facility] [place] [phone] PCP - General Family Medicine 05/20/21 documented as of this encounter
--- OUTSIDE RECORDS SUMMARY | 2024-07-20 19:01 | External Medical Summary ---
Author Name Unknown Address Unknown Organization K01:[facility] - [address] [facility] [address] Laboratory Report Ordering Provider Test Date Status YUVAL LAZO 07/18/2024 13:23:07 Preliminary Observation Date Value Abnormality Reference (Units ) Status Bacteria identified in Specimen by Culture 07/18/2024 13:23:07 [id number]^ESCH ERICHIA COLI ESBL Abnormal Preliminary >100,000 colonies/mL Escheri william coli ESBL producing organism, This patient may require isolation.
This gram negative bacilli displays in vitro resistance to multiple antibiotics. This patient may require isolation. Carbapenem use is preferred. Contact infectious disease service for further recommendations. Performing Location [facility] - [address] [facility] [address] Ordering Provider Test Date Status YUVAL LAZO 07/18/2024 13:23:07 Preliminary Observation Date Value Abnormality Reference (Units ) Status Ampicillin 07/18/2024 13:23:07 >=32 Resistant Preliminary Ampicillin + Sulbactam 07/18/2024 13:23:07 >=32 Resistant Preliminary Cefazolin 07/18/2024 13:23:07 >=64 Resistant Preliminary Cefepime susceptibility 07/18/2024 13:23:07 >=64 Resistant Preliminary cefOXitin [Susceptibility] 07/18/2024 13:23:07 16 Intermediate Preliminary Ceftriaxone suceptibility 07/18/2024 13:23:07 >=64 Resistant Preliminary Ciprofloxacin 07/18/2024 13:23:07 >=4 Resistant Preliminary Due to serious side effects, the FDA has advised against using Ciprofloxacin to treat uncomplicated UTIs and respiratory tract infections unless there are no alternative treatment options. Gentamicin susceptibility 07/18/2024 13:23:07 <=1 Susc eptible Preliminary Levofloxacin susceptibility 07/18/2024 13:23:07 >=8 Re sistant Preliminary Due to serious side effects, the FDA has advised against using Levofloxacin to treat uncomplicated UTIs and respiratory tract infections unless there are no alternative treatment options. Meropenem [Susceptibility] 07/18/2024 13:23:07 <=0.25 Amanda ceptible Preliminary Nitrofurantoin susceptibility 07/18/2024 13:23:07 <=16 Susceptible Preliminary Piperacillin + Tazobactamsusceptibility 07/18/2024 13:23:07 >=128 Resistant Preliminary TMP-SMZ susceptibility 07/18/2024 13:23:07 160 Resista nt Preliminary Test: Culture, Urine, Quanti tative
Specimen Source: Urine, Clean Catch
Specimen Type: Urine
Specimen Date: 07/18/2024 1323
Result Date: 07/20/2024 1144
Result Status: Preliminary result
Abnormal: Yes
Resulting Lab: [facility]
[address]
[facility] [address]

CULTURE

>100,000 colonies/mL Escherichia coli ESBL producing organism, This patient may
require isolation. (Abnormal)

This gram negative bacilli displays in vitro resistance to multiple
antibiotics. This patient may require isolation. Carbapenem use is
preferred. Contact infectious disease service for further recommendations.

SUSCEPTIBILITY

Escherichia coli
ESBL producing
organism, This
patient may require
isolation.
METHOD MICROBROTH DILUTIONS

AMPICILLIN >=32 Resistant
AMPICILLIN/SULBACTAM >=32 Resistant
CEFAZOLIN >=64 Resistant
CEFEPIME >=64 Resistant
CEFOXITIN 16 Intermediate
CEFTRIAXONE >=64 Resistant
CIPROFLOXACIN >=4 Resistant
[1]
GENTAMICIN <=1 Susceptible
LEVOFLOXACIN >=8 Resistant
[2]
MEROPENEM <=0.25 Susceptible
NITROFURANTOIN <=16 Susceptible
PIPERACILLIN TAZOBACTAM >=128 Resistant
TRIMETH/SULFAMETHOXAZOLE 160 Resistant

[1] Due to serious side effects, the FDA has advised against using
Ciprofloxacin to treat uncomplicated UTIs and respiratory tract infections
unless there are no alternative treatment options.

[2] Due to serious side effects, the FDA has advised against using
Levofloxacin to treat uncomplicated UTIs and respiratory tract infections
unless there are no alternative treatment options.

null Performing Location [facility] - [address] [facility] [address]
--- OUTSIDE RECORDS SUMMARY | 2024-07-20 19:02 | External Medical Summary | Summary of Care ---
Author Name Unknown Organization [facility] Address [address] [address] Phone [phone] Care Team Providers Care Gut Puller Name Role Phone Héctor Johnson MD Primary Care Provider [phone] Reason for Visit * Reason Onset Date Comments Appointment 07/09/2024 Encounter Details Date Type Department Care Team (Late st Contact Info) Description 07/09[facility]2024 [facility] [address] [facility] [place] [address] Mario Noland MD [address] [place] [address] Appointment Allergies Active Allergy Reactions Criticality Noted Date Comments Adhesive Tape Rash 04/22/2014 documented as of this encounter (statuses as of 07/10/2024) Medications ASPIRIN 81 MG PO TABSIndications:DM type 2, goal A1c below 7 ONE DAILY 30 Tab 5 04/01/20 11 Active Cranberry 1000 MG Capsule Start: 01/13/19 9:00:00 EDT, PO, Daily 01/14/20 19 Active Apple Cider Vinegar 188 MG CAPS Start: 01/13/19 14:02:00 EDT, Apple cider vinegar, PO, bid 01/14/20 19 Active Lancets (ONETOUCH DELICA PLUS [id number]) MISCIndications:Ty pe 2 diabetes mellitus with hemoglobin A1c goal of less than 8.0% (HCC) Use to check blood sugar up to 3 times per day E11.9 100 Each 11 01/17/20 20 Active Pen [place] 32G X 4 MMIndications:Type 2 diabetes mellitus [...] suspected opioid overdose. Seek immediate medical attention. https://www.SpumeNews.com/watch? [email or web address] 1 Each 3 03/01/20 23 Active tiZANidine [...] three times a day 22 g 5 4 10:09 AM EDT 03/13/20 Active Additional Information Patient not taking.Reported on 05/08/2024 Doxycycline Hyclate 100 MG Oral Capsule Take 1 Capsule by mouth in the morning and 1 Capsule before bedtime. 60 Capsule 2 4 10:09 AM EDT 03/13/20 Active Additional Information [...] needed. 09/02/19 24 Active FreeStyle Sotero 3 [place] Device Use as directed. Active FreeStyle Sotero 3 SensorIndications: Type 2 diabetes mellitus with hemoglobin A1c goal of less than 8.0% ([facility]) Use as directed every 14 days. E11.9 6 Each 3 07/09/19 25 Active Amoxicillin-Pot Clavulanate 875-125 MG Oral Tablet (Augmentin) Take 1 Tablet by mouth in the morning and 1 Tablet before bedtime. 06/27/19 25 025 Sulfamethoxazole-T rimethoprim 800-160 MG Oral Tablet (Bactrim DS) Take 1 Tablet by mouth in the morning and 1 Tablet before bedtime. 06/27/19 25 025 documented as of this encounter (statuses as of 07/10/2024) Active Problems Problem Noted Date Diagnosed Date [...] research program 01/03/2020 Overview (09/15/2020): [employer]: A Randomized Controlled Trial (Project # [id number]). The Fresh Food Farmacy program provides food-insecure diabetics with healthy food for their entire household (2 meals/ day X 5 days/week). The program also provides education on food preparation, healthy living, and diabetes self management. The research measures the effects of the program on patient health and wellbeing. Subject will begin the FFF program December 2019. Contact Information: Property Consultant: Dr. Palmer Anders ([phone]) CRC: Glory Arteaga ([phone]) RA: Chiara Laura ([phone]) Diagnosis changed due to Research Module. Go [...] as of this encounter (statuses as of 07/10/2024) Resolved Problems Problem Noted Date Diagnosed Date [...] On prozac, was inc to 30 mg [id number].Still.,wean 04/18/2007 Screening for malignant neoplasm of cervix 01/16/2007 06/08/2010 Overview (01/31/2009): PAP--?rad86--OB[facility] , had post Fu and [...] as of this encounter (statuses as of 07/10/2024) Immunizations Name Administration Dates Next Due COVID-19 mRNA, LNP-s, No Pre serve, 2-Dose Series ([place]) 05/01/2021 Hepatitis B, 20+ yrs 11/28/1995,07/28/1994,05/30 PPD [...] encounter Miscellaneous Notes * Telephone Encounter - Elisha Cardona OSA - 07/10/2024 9:35 AM EST I spoke with the patient and she is aware [facility] Podiatry is not accepting new routine foot care patients. Podiatry provider list was mailed. * Telephone Encounter - Sonia Harris OSA - 07/09/2024 6:03 PM EST Please assist Pt in scheduling diabetic foot exam. documented in this encounter Plan of Treatment Upcoming Encounters Date Type Department Care Team (Late st Contact Info) Description 07/31/2024 10:00 AM EST Office Visit [facility] [address] [phone] Héctor Johnson MD [address] [place] [address] 08/21/2024 9:45 AM EDT Hospital Encounter ENDO GECL[address] [place] [phone] Genoveva Bauer DO [address] [place] [address] 08/21/2024 9:45 AM EDT - 08/21/2024 10:15 AM EDT Surgery ENDO GECL, Endoscopy [address] [place] [phone] Genoveva Bauer DO [address] [place] [address] COLONOSCOPY FLEXIBLE PROXIMAL DIAGNOSTIC Scheduled Procedures Name [...] Documents on File Type Date Recorded Patient Cant Gang Sawyer Expl anation Advance Directives and Living Will 11/02/2005 Power of Audio Visual Coordinator 11/02/2005 Care Teams Gut Puller Relationship Specialty Start Date End Date Héctor Johnson MD [address] [address] PCP - General Family Medicine 05/20/21 documented as of this encounter
--- OUTSIDE RECORDS SUMMARY | 2024-07-20 19:02 | External Medical Summary | Summary of Care ---
Author Name Unknown Organization [facility] Address [address] [facility] [place] [address] Phone [phone] Care Team Providers Care Physical Therapy Resident Name Role Phone Héctor Johnson MD Primary Care Provider [phone] Reason for Visit * Reason Onset Date Comments Medication Pre-auth 07/12/2024 Sotero Encounter Details Date Type Department Care Team (Late st Contact Info) Description 07/12/2024 Telephone [facility] [address] [phone] Héctor Johnson MD [address] [facility] [place] [address] Medication Pre-auth (Sotero) Allergies Active Allergy Reactions Criticality Noted Date Comments Adhesive Tape Rash 04/22/2014 documented as of this encounter (statuses as of 07/12/2024) Medications ASPIRIN 81 MG PO TABSIndications:DM type 2, goal A1c below 7 ONE DAILY 30 Tab 5 04/01/20 11 Active Cranberry 1000 MG Capsule Start: 01/13/19 9:00:00 EDT, PO, Daily 01/14/20 19 Active Apple Cider Vinegar 188 MG CAPS Start: 01/13/19 14:02:00 EDT, Apple cider vinegar, PO, bid 01/14/20 19 Active Lancets (ONETOUCH DELICA PLUS [id number]) MISCIndications:Ty pe 2 diabetes mellitus with hemoglobin A1c goal of less than 8.0% (HCC) Use to check blood sugar up to 3 times per day E11.9 100 Each 11 01/17/20 20 Active Pen [place] 32G X 4 MMIndications:Type 2 diabetes mellitus [...] suspected opioid overdose. Seek immediate medical attention. https://www.PrePay.com/[email or web address]? [email or web address] 1 Each 3 03/01/20 23 Active tiZANidine [...] needed. 09/02/19 24 Active FreeStyle Sotero 3 [place] Device Use as directed. Active FreeStyle Sotero 3 SensorIndications: Type 2 diabetes mellitus with hemoglobin A1c goal of less than 8.0% ([facility]) Use as directed every 14 days. E11.9 6 Each 3 07/09/19 25 Active documented as of this encounter (statuses as of 07/12/2024) Active Problems Problem Noted Date Diagnosed Date [...] research program 01/03/2020 Overview (09/15/2020): Fresh Food Farm[employer]: A Randomized Controlled Trial (Project # [id number]). The Fresh Food Farmacy program provides food-insecure diabetics with healthy food for their entire household (2 meals/ day X 5 days/week). The program also provides education on food preparation, healthy living, and diabetes self management. The research measures the effects of the program on patient health and wellbeing. Subject will begin the FFF program December 2019. Contact Information: Advertising Dispatch Clerks Supervisor: Dr. Palmer Anders ([phone]) CRC: Glory Arteaga ([phone]) RA: Chiara Laura ([phone]) Diagnosis changed due to Research Module. Go [...] as of this encounter (statuses as of 07/12/2024) Resolved Problems Problem Noted Date Diagnosed Date [...] On prozac, was inc to 30 mg [id number].Still.,wean 04/18/2007 Screening for malignant neoplasm of cervix 01/16/2007 06/08/2010 Overview (01/31/2009): PAP--?[id number]--SF.Grill.----is satish DrGrill-- Del , had post Fu [...] as of this encounter (statuses as of 07/12/2024) Immunizations Name Administration Dates Next Due COVID-19 mRNA, LNP-s, No Pre serve, 2-Dose Series (K[place]ine) 05/01/2021 Hepatitis B, 20+ yrs 11/28/1995,07/28/1994,05/30 PPD [...] Garcia CMA - 07/12/2024 9:43 AM EST PA submitted for [employer] thru CM Rosales: [id number] documented in this encounter Plan of Treatment Upcoming Encounters Date Type Department Care Team (Late st Contact Info) Description 07/31/2024 10:00 AM EST Office Visit [facility] [address] [phone] Héctor Johnson MD [address] [place] [address] 08/21/2024 9:45 AM EDT Hospital [facility] [address] [facility] [place] [phone] Genoveva Bauer DO [address] [place] [address] 08/21/2024 9:45 AM EDT - 08/21/2024 10:15 AM EDT Surgery ENDO GECL, Endoscopy [address] [place] [phone] Juancarlos Genoveva Isi, DO [address] [place] [address] COLONOSCOPY FLEXIBLE PROXIMAL DIAGNOSTIC Scheduled Procedures Name [...] 03/10/2020, 02/10/2016, Additional history exists Albumin/Creatinine Ratio 05/09/20252 024, 02/02/2023, 02/22/2022, Additional history exists GFR [...] Documents on File Type Date Recorded Patient Computer Systems Integrator Expl anation Advance Directives and Living Will 11/02/2005 Power of Sane Nurse 11/02/2005 Care Teams Physical Therapy Resident Relationship Specialty Start Date End Date Héctor Johnson MD 21 [facility] [place] [phone] PCP - General Family Medicine 05/20/21 documented as of this encounter
--- OUTSIDE RECORDS SUMMARY | 2024-07-20 19:02 | External Medical Summary | Summary of Care ---
Author Name Unknown Organization [facility] Address [address] [place] [address] Phone [phone] Care Team Providers Care Machine Fitter Name Role Phone Héctor Johnson MD Primary Care Provider [phone] Reason for Referral * Evaluate & Treat - Unlimited Visits (Within 10 days (routine)) - Pending Review Specialty Diagnoses / Procedures Referred By Rachel urena Referred To Contact Podiatry Diagnoses Type 2 diabetes mellitus with hemoglobin A1c goal of less than 8.0% (FORMERLY [facility]) Onychomycosis Mario Noland MD [address] [address] Phone: tel: fax: Referral ID Status Reason Start Date Expiration Date Visits Requested Visits Authorized [id number] Pending Review Specialty Services Required 07/09/[phone] Question Answer Referral Priority Within 10 days (routine) Where should this appointment be scheduled? [facility] Which condition are you referring this patient for? Diabetic foot care/pain Specific condition? Diabetic Foot care Medicare Patient? No Reason for Visit * Reason Onset Date Comments Hospital Follow-Up Hospital Follow-Up 07/09/2024 Encounter Details Date Type Department Care Team (Late st Contact Info) Description 07/09/2024 5:00 PM EST Office Visit [facility] Sharmaine Hardin [address] [phone] Mario Noland MD [address] [id number] Hospital discharge follow-up*; Type 2 diabetes mellitus with hemoglobin A1c goal of less than 8.0% (FORMERLY [facility]); Diffuse large B-cell lymphoma of lymph nodes of multiple regions (HCC); Non-Hodgkin's lymphoma, unspecified body region, unspecified non-Hodgkin lymphoma type (HCC); Onychomycosis Allergies Active Allergy Reactions Criticality Noted Date [...] 01/14/20 19 Active Lancets (ONETOUCH DELICA PLUS [id number]) MISCIndications:Ty pe 2 diabetes mellitus with hemoglobin A1c goal of less than 8.0% (FORMERLY [facility]) Use to check blood sugar up to 3 times per day E11.9 100 Each 11 01/17/20 20 Active Pen Wilmerding 32G X 4 MMIndications:Type 2 diabetes mellitus with hemoglobin A1c goal of less than 8.0% ([facility]) Use as directed. For use with Tresiba [...] A1c goal of less than 8.0% ([facility]ER[facility]) Test blood sugar 2 to 3 times [...] suspected opioid overdose. Seek immediate medical attention. [email or web address] 1 Each 3 03/01/20 23 Active tiZANidine [...] A1c goal of less than 8.0% ([facility]) 36 units nightly 5 Each 3 09/02/19 [...] Capsule 2 4 10:09 AM EDT 03/13/20 24 Active Additional [...] needed. 09/02/19 24 Active FreeStyle Sotero 3 [place] Device Use as directed. Active FreeStyle Sotero 3 SensorIndications: Type 2 diabetes mellitus with hemoglobin A1c goal of less than 8.0% ([facility]) Use as directed every 14 days. E11.9 6 Each 3 07/09/19 25 Active Amoxicillin-Pot Clavulanate 875-125 MG Oral Tablet (Augmentin) Take 1 Tablet by mouth in the morning and 1 Tablet before bedtime. 06/27/19 25 025 Sulfamethoxazole-T rimethoprim 800-160 MG Oral Tablet (Bactrim DS) Take 1 Tablet by mouth in the morning and 1 Tablet before bedtime. 06/27/19 25 025 FreeStyle Sotero 3 Sensor Use as directed every 14 days. 025 Discontinu ed(Refill) documented as of this encounter (statuses as [...] research program 01/03/2020 Overview (09/15/2020): [employer]: A Randomized Controlled Trial (Project # [id number]). The [employer] program provides food-insecure diabetics with healthy food for their entire household (2 meals/ day X 5 days/week). The program also provides education on food preparation, healthy living, and diabetes self management. The research measures the effects of the program on patient health and wellbeing. Subject will begin the FFF program December 2019. Contact Information: Exhibit Technician: Dr. Palmer Anders ([phone]) CRC: Glory Arteaga ([phone]) RA: Chiara Laura ([phone]) Diagnosis changed due to Research Module. Go to Snapshot for study details. Gastroesophageal reflux disease without esophagi tis 02/12/2016 HTN, goal below 130/80 02/12/2016 Type 2 diabetes mellitus wit h hemoglobin A1c goal of less than 8.0% 07/23/2013 Overview (09/25/2015): ICD-10 update of inactive term Assessment & Plan (07/09/2024 6:38 PM EST): Last A1c controlled, no changes FLEICITY (obstructive sleep apnea) 11/21/2012 Overview (12/29/2012): AHI [...] On prozac, was inc to 30 mg [id number].Still.,wean 04/18/2007 Screening for malignant neoplasm of cervix 01/16/2007 06/08/2010 Overview (01/31/2009): PAP--?naf11--HS.Grill.----[facility]-- Del , had post Fu and [...] mRNA, LNP-s, No Pre serve, 2-Dose Series (AptDeco) 05/01/2021 Hepatitis B, 20+ yrs 11/28/1995,07/28/1994,05/30 PPD [...] 0 05/30/1982 - 05/30/1997 Smokeless Tobacco: Never Tobacco Cessation:Counseling Given: [...] PM EDT documented as of this encounter Last Filed Vital Signs Vital Sign Reading Time Taken Comments Blood Pressure 96/68 07/09/2024 5:22 PM EST Pulse 108 07/09/2024 5:22 PM EST Temperature 36.8 C (98.3 F) 07/09/2024 5:22 PM ES T Respiratory Rate 16 07/09/2024 5:22 PM EST Oxygen Saturation 93% 07/09/2024 5:22 PM EST Inhaled Oxygen Concentration - - Weight 79.6 kg (175 lb 6.4 oz) 07/09/2024 5:22 P M EST Height - - Body Mass Index 29.19 02/01/2024 10:12 AM EDT documented in this encounter Patient Instructions * Patient Instructions* Vanesa Rojas LPN - 07/09/2024 5:34 PM EST Diabetes: Keeping Feet Healthy Inspect your feet every day for signs of a problem. Diabetes can damage nerves in your feet and cause neuropathy. This condition makes it hard for you to feel injuries or sore spots. Diabetes can also change blood flow, making it harder for small problems, like a blister, to heal properly. In fact, minor injuries can quickly become serious infections that send you to the hospital. Practice self-care to protect your feet and keep them healthy. Take Special Care Inspect your feet daily for problems such as redness, blisters, cracks, dry skin, or numbness. Use a mirror to see the bottoms of your feet. Or, ask for help. Manage your diabetes. Monitor and control your blood sugar. Take all your medications as prescribed. Avoid walking barefoot, even indoors. Wash your feet with warm water and mild soap. Dry well, especially between toes. Dont treat corns or calluses yourself. Talk to your doctor or almond sorter (a doctor who specializes in foot care) if you need assistance trimming your toenails. Use moisturizing cream or lotion if you have dry skin, but dont use it between toes. Dont use heating pads on your feet. If you have neuropathy, you could get a burn and not feel it. Stop smoking. Smoking restricts blood flow and can make it harder for wounds to heal. Have Regular Checkups Foot problems can develop quickly. So be sure to follow your healthcare teams schedule for regular checkups. During office visits, take off your shoes and socks as soon as you get in the exam room. Ask your healthcare provider to examine your feet for problems. This will make it easier to find and treat small skin irritations before they get worse. Regular checkups can also help keep track of the blood flow and feeling in your feet. If you have neuropathy, you may need to have checkups more often. Wear Proper Footwear Wearing proper footwear is very important. If areas of your feet have been damaged by too much pressure, your healthcare provider may recommend changing your footwear. In some cases, avoiding high heels or tight work boots may be all thats needed. Or, your healthcare provider may recommend special shoes or custom inserts. These help protect your feet and keep existing irritations from getting worse. If you need special footwear, ask your healthcare provider if you qualify for [employer] diabetic shoe program. Make Sure Shoes and Socks Fit Any pair of shoes--new or old--should feel comfortable as soon as you put them on. There shouldnt be any rubbing when you walk. Wear the right shoe for any activity. For instance, a running shoe is designed to keep your feet injury-free while jogging. Buy shoes at the end of the day, when your feet are larger. Make sure they provide support without feeling too loose. Make sure your socks fit, t oo. Wear soft, seamless, well-padded socks for activity. Cotton or microfiber socks are best to help to absorb sweat. To protect your feet, avoid shoes that are open-toed or open-heeled. If you have questions about what kinds of shoes and socks are best, talk to your healthcare team. Get Regular Exercise Regular exercise improves blood flow in your feet. It also increases foot strength and flexibility.Gentle exercises, like walking or riding a stationary bicycle, are best. You can also do special foot exercises. Just be sure to talk with your healthcare provider before starting any exercise program. Also mention if any exercise causes pain, redness, or other signs of foot problems. Note: If you have any kind of break in the skin of your foot or ankle, keep the area clean. Then call your doctor--especially if the area doesnt appear to be healing. [id number] [employer], [address] [place] [address], [place] [address]. All rights reserved. This information is not intended as a substitute for professional medical care. Always follow your healthcare professional's instructions. documented in this encounter Progress Notes * Mario Noland MD - 07/09/2024 5:43 PM EST SUBJECTIVE: Miguel Manuel is a 59 year old female. Chief Complaint Patient presents with Hospital Follow-Up Hospital Follow-Up Recent Admission: Patient was recently admitted to [facility] June 25 for facial cellulitis. The date of discharge was June 27. Discharge report received and reviewed. HPI: History of Present Illness Miguel Manuel is a 59 year old female with diabetes and a history of cancer in remission who presents with cellulitis and dizziness. She was recently hospitalized from June 25 to June 27 for cellulitis and was discharged with prescriptions for Bactrim and Augmentin. She has experienced improvement since returning home and is completing her antibiotic course today. No fever was present during the illness. She initially went to the hospital due to dizziness, nausea, and vomiting. The dizziness was exacerbated by head movements and developed gradually before worsening significantly. Her white cell countwas low during the hospital stay, which she associated with her symptoms. However, the dizziness has resolved. Approximately one month ago, she injured her toe while cutting her toenails, resulting in a small black area. The area has reduced in size but remains tender, especially when wearing shoes. She has ahistory of toenail fungus, which she has had for years, and notes that her big toes are worsening again. She previously received medication for toenail fungus, which cleared up except for one nail, but the condition has recurred. She has a history of diabetes, which she states is controlled. She does not regularly see a almond sorter but is considering it for toenail care due to difficulty reaching her feet and her 's reluctance to assist. She is in remission from cancer and recently had an appointment with her oncologist due to low white cell counts noted during her hospital stay. Her blood work has since normalized, and her oncologist remains confident in her remission status. 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 She has been placed on early assisted disability. Patient Active Problem List Diagnosis Acquired hypothyroidism Calculus of kidney Dyslipidemia, goal LDL below 100 Varicose vein of leg Other specified disorder of gallbladder Abnormal results of liver function studies Localized osteoarthrosis not specified whether primary or secondary, unspecified site Migraine with aura Depression FELCIITY (obstructive sleep apnea) Type 2 diabetes mellitus with hemoglobin A1c goal of less than 8.0% (HCC) Gastroesophageal reflux disease without esophagitis HTN, goal below 130/80 Encounter for examination for normal comparison and control in clinical research program Chronic bilateral thoracic back pain Port-A-Cath in place Splenic mass Diffuse large B-cell lymphoma of lymph nodes of multiple regions (HCC) Non-Hodgkin lymphoma (HCC) Onychomycosis Hospital discharge follow-up Current Outpatient Medications Medication Sig Dispense Refill ASPIRIN 81 MG PO TABS ONE DAILY 30 Tab 5 Cranberry 1000 MG Capsule Start: 01/13/19 9:00:00 EDT, PO, Daily Apple Cider Vinegar 188 MG CAPS Start: 01/13/19 14:02:00 EDT, Apple cider vinegar, PO, bid Pen Wilmerding 32G X 4 MM Use as directed. For use with Tresiba insulin pen. 100 Each 3 Ondansetron 4 MG Oral Tablet Disintegrating (Zofran) Place 1 Tablet on tongue as needed. OneTouch Verio In Vitro Strip (Glucose Blood) Test blood sugar 2 to 3 times a day and as needed. E11.9 100 Strip 11 SUMAtriptan Succinate 100 MG Oral Tablet ONE AT ONSET OF HEADACHE; MAY REPEAT DOSE IN TWO HOURS IF NEEDED; NO MORE THAN 2 PILLS/24 HRS OR 4 PILLS/WEEK 6 Tablet 2 Naloxone HCl 4 MG/0.1ML Nasal Liquid (Narcan Nasal) Administer 1 spray into 1 nostril for suspectedopioid overdose. Seek immediate medical attention. [email or web address] 1 Each 3 tiZANidine HCl 4 MG Oral Capsule Take 1 Capsule by mouth 2 times a day as needed for Muscle spasms.hold for sedation 28 Capsule 1 Docusate Sodium 100 MG Oral Capsule (Colace) Take 1 Capsule by mouth in the morning. [employer] Purelax 17 GM Oral Packet Take 1 Packet by mouth daily as needed. Tylenol PM Extra Strength 500-25 MG Oral Tablet (diphenhydrAMINE-APAP (sleep)) Take 1 Tablet by mouth 3 times a day as needed for Itching. Tresiba FlexTouch 100 UNIT/ML Subcutaneous Solution Pen-injector (Insulin Degludec) 36 units nightly (Patient taking differently: 32 units nightly) 5 Each 3 Omeprazole 40 MG Oral Capsule Delayed Release (PriLOSEC) TAKE 1 CAPSULE BY MOUTH EVERY DAY 1 HOUR BEFORE THE FIRST MEAL OF THE DAY 30 Capsule 5 Solifenacin Succinate 10 MG Oral Tablet (VESIcare) Take 1 Tablet by mouth in the morning. 90 Tablet3 Levothyroxine Sodium 150 MCG Oral Tablet (Levoxyl) TAKE 1 TABLET BY MOUTH EVERY DAY AT LEAST 30 MINBEFORE BREAKFAST OR OTHER MEDICATION 90 Tablet 2 Alendronate Sodium 70 MG Oral Tablet (Fosamax) TAKE 1 TAB BY MOUTH ONCE A WEEK W/ 8OZ. WATER 30MIN BEFORE 1ST MEAL OF DAY. REMAIN UPRIGHT X30MIN 4 Tablet 11 Jardiance 25 MG Oral Tablet (Empagliflozin) TAKE 1 TABLET BY MOUTH EVERY DAY IN THE MORNING 30 Tablet 5 Lisinopril 10 MG Oral Tablet (Prinivil) TAKE 1 TABLET BY MOUTH EVERY DAY IN THE MORNING 90 Tablet 1 metFORMIN HCl 1000 MG Oral Tablet (Glucophage) TAKE 1 TABLET BY MOUTH TWICE A DAY 180 Tablet 1 Citalopram Hydrobromide 20 MG Oral Tablet (CeleXA) TAKE 1 TABLET BY MOUTH EVERY DAY IN THE MORNING 90 Tablet 1 Atorvastatin Calcium 20 MG Oral Tablet (Lipitor) TAKE 1 TABLET BY MOUTH EVERY DAY 90 Tablet 1 Ozempic (1 MG/DOSE) 4 MG/3ML Subcutaneous Solution Pen-injector (Semaglutide (1 MG/DOSE)) INJECT 1 MG UNDER THE SKIN ONCE A WEEK 9 mL 1 Ventolin HFA 108 (90 Base) MCG/ACT Inhalation Aerosol Solution Inhale 2 Puffs by mouth every 4 hours as needed for Wheezing or Shortness of Breath. 18 g 0 Amoxicillin-Pot Clavulanate 875-125 MG Oral Tablet (Augmentin) Take 1 Tablet by mouth in the morning and 1 Tablet before bedtime. Sulfamethoxazole-Trimethoprim 800-160 MG Oral Tablet (Bactrim DS) Take 1 Tablet by mouth in the morning and 1 Tablet before bedtime. Probiotic Daily Oral Capsule Take 1 Capsule by mouth in the morning. oxyCODONE-Acetaminophen 5-325 MG Oral Tablet (Percocet) Take 1 Tablet by mouth every 6 hours as needed. FreeStyle Sotero 3 [place] Device Use as directed. FreeStyle Sotero 3 Sensor Use as directed every 14 days. E11.9 6 Each 3 Lancets (ONETOUCH DELICA PLUS [id number]) MISC Use to check blood sugar up to 3 times per day E11.9 100 Each 11 Ibuprofen 200 MG Oral Tablet (Motrin) Take 3 Tablets by mouth 2 times a day as needed. In the morning and possibly 400mg mid day if needed. (Patient not taking: Reported on 07/09/2024) Ibuprofen PM 200-38 MG Oral Tablet (Ibuprofen-diphenhydrAMINE Cit) Take 2 Tablets by mouth at bedtime as needed. (Patient not taking: Reported on 07/09/2024) Nitrofurantoin Monohyd Macro 100 MG Oral Capsule (Macrobid) Take 1 Capsule by mouth in the morning and 1 Capsule before bedtime. With food.. (Patient not taking: Reported on 05/08/2024) 90 Capsule 1 Mupirocin 2 % External Ointment (Bactroban) Apply to wounds in scalp three times a day (Patient nottaking: Reported on 05/08/2024) 22 g 5 Doxycycline Hyclate 100 MG Oral Capsule Take 1 Capsule by mouth in the morning and 1 Capsule beforebedtime. (Patient not taking: Reported on 05/08/2024) 60 Capsule 2 No current facility-administered medications for this visit. Current and discharge medications have been reconciled. Review of patient's allergies indicates: Allergen Reactions Adhesive Tape Rash OBJECTIVE: BP 96/68 | Pulse 108 | Temp 98.3 F (36.8 C) (Tympanic) | Resp 16 | Wt 175 lb 6.4 oz (79.6 kg) |LMP 07/14/2010 | SpO2 93% | BMI 29.19 kg/m | BSA 1.91 m REVIEW OF SYSTEMS: PHYSICAL EXAM: BP 96/68 | Pulse 108 | Temp 98.3 F (36.8 C) (Tympanic) | Resp 16 | Wt 175 lb 6.4 oz (79.6 kg) |LMP 07/14/2010 | SpO2 93% | BMI 29.19 kg/m | BSA 1.91 m Physical Exam Constitutional: Appearance: Normal appearance. Skin: Findings: No rash. Comments: Left foot 1st and 2nd toe with discolored and thickened toenails. The 2nd toenail is blackened distally and there is callus on the skin inferior to the toenail Neurological: Mental Status: She is alert. ASSESSMENT: Problem List Items Addressed This Visit Type 2 diabetes mellitus with hemoglobin A1c goal of less than 8.0% (HCC) (Chronic) Last A1c controlled, no changes Relevant Medications FreeStyle Sotero 3 Sensor Other Relevant Orders DIABETES FOOT EXAM (Completed) DIABETIC EYE EXAM PODIATRY REFERRAL OP Diffuse large B-cell lymphoma of lymph nodes of multiple regions (HCC) (Chronic) In remission and following with Oncology, no changes Non-Hodgkin lymphoma (HCC) In remission and following with Oncology, no changes Onychomycosis Patient has previously been treated but when she developed cancer and had gone chemotherapy there was concern about liver dysfunction and so she has not been treated since then. She would like to seepodiatry for 2nd opinion. Relevant Orders PODIATRY REFERRAL OP Hospital discharge follow-up - Primary Patient is finishing antibiotics today. There is no signs of cellulitis on exam today. Other symptoms also have not returned. Patient counseled on reasons to seek additional medical care. Relevant Orders DISCH MED RECON CUR MED LIS Follow-up: Return if symptoms worsen or fail to improve. | Check-out note: Podiatry referral Follow up as needed. Moderate level decision-making I spent a total of 30-39 minutes (exact time 35 mins) minutes on the date of service in preparation, delivery, and documentation of the care provided to Miguel Manuel excluding any time spent in performance of separately billed services. Mario Noland MD * Vanesa Rojas LPN - 07/09/2024 5:34 PM EST Images from the original note were not included. Socks and Shoes Removed for Annual Diabetic Foot Screening RIGHT FOOT: No Reddened, Cracking, Or Open Areas Noted. RIGHT Dorsalis Pedis Pulse: Palpable RIGHT Posterior Tibial Pulse: Palpable RIGHT Monofilament:Patient reports feeling monofilament pressure on plantar surface of foot LEFT FOOT: Area of Concern Tip 2nd toe. She cut it a month ago and it is black LEFT Dorsalis Pedis Pulse: Palpable LEFT Posterior Tibial Pulse: Palpable LEFT Monofilament:Patient reports feeling monofilament pressure on plantar surface of foot Do you need diabetic shoes: No DM Foot Exam completed today. Provider aware. Vanesa Rojas LPN The importance of having a yearly diabetic eye exam has been discussed with patient. Order and/or Referral placed along with patient instructions. Provider made aware. Vanesa Rojas LPN Diabetic Retinopathy: Evaluating Your Eyes Diabetic retinopathy is a condition that happens when diabetes damages blood vessels in the rear ofthe eye. It can lead to vision loss. To help catch it early, have a complete dilated eye exam at least once a year. During the exam, the eye healthcare provider will review your medical history, examine your eyes, and check your vision. Women who are and have pre-existing type 1 or type 2 diabetes have an increased risk of retinopathy. Women with diabetes should have an eye exam before or in the first trimester. They should continue to be monitored every trimester and for 1 year after delivery, depending on the severity of the retinopathy. The retina is the light-sensitive part of the eye that allows you to see. High blood sugar can damage blood vessels of the retina and cause them to leak or bleed. This damage can lead to abnormal blood vessel growth. This condition is called diabetic retinopathy. You may not have symptoms early in the disease. Later, there may be floaters, blurred vision, or poor night vision. There may also be partial or complete vision loss. Early cases of diabetic retinopathy can be treated by carefully controlling blood sugar, blood pressure, and cholesterol. Surgery or laser treatments may help restore lost vision. Laser surgery can shrink abnormal blood vessels or close ones that are leaking. Medicines injected in the eye can help decrease swelling of the retina. Home care Take all medicines, including insulin or oral diabetic medicine, exactly as prescribed. Follow the diet advised by your healthcare provider. If you have high cholesterol, follow a low-fat, low-cholesterol diet. Monitor blood sugars as advised. Try to achieve your ideal weight. If you smoke, quit smoking. Tobacco use worsens the effect of diabetes on your blood vessels. If you have high blood pressure, consider buying an automatic blood pressure machine. These are available at most pharmacies. Use this to monitor your blood pressure. Report your blood pressure readings to your healthcare provider. Exercise regularly. Follow-up care Follow up with your healthcare provider, or as advised. You must have a complete eye exam at least once a year, more often if needed. Untreated diabetic retinopathy can lead to complete loss of vision. Occupational therapists can help you adapt to any vision loss you have, including learning techniques to safely administer insulin. When to seek medical advice Call your healthcare provider right away if any of these occur. Increasing blurriness or any sudden changes in your vision Sudden flashes of light inside your eye New floaters (small dots or strings that seem to be moving across your field of vision) Eye pain, redness, or discharge from your eyelid New dark spots appearing in your field of vision Halos around lights Dimness of vision Partial or complete loss of vision Women with diabetes should have a complete eye exam before becoming , or as soon as possible when they find out they are . Retinopathy sometimes worsens during . Your eye exam Your eye healthcare provider uses an eye chart and other tools to check your vision. Then he or sheexamines your eyes for signs of disease. You are given eye drops to widen (dilate) your pupils. Youmay have one or more of the following tests: Tonometry to measure fluid pressure inside the eye. Slit lamp exam to allow the healthcare provider to view the structures of your eye. Ultrasound to create an image of the eye using sound waves. Ultrasound may be used if blood is found in the clear gel that fills the eye (vitreous). Ocular coherence tomography (OCT) to create an image of the retina using light waves. This shows ifthere is fluid leaking into certain parts of the eye. It can also measure the thickness of the retina. Fluorescein angiography This test may be done to check the health of the inside lining of the eye (retina). It also checks the tiny blood vessels (capillaries) that carry blood to the retina. During the test: Photographs are taken of the retina. A dye is then injected into the bloodstream through the arm or hand. The dye travels to the capillaries in the eye. More photographs are taken of the retina. The dye causes the capillaries to stand out on the photographs. You may feel brief nausea during the procedure. For a few hours after the test, your skin, eyes, and urine may appear yellow. Talk with your healthcare provider for more information about this test. Date Last Reviewed: 10/29/201519997313-7894 [employer]. [address] [place] [address], [place] [address]. All rights reserved. This information is not intended as a substitute for professional medical care. Always follow your healthcare professional's instructions. documented in this encounter Nursing Notes * Vanesa Rojas LPN - 07/09/2024 5:27 PM EST Chief Complaint Patient presents with Hospital Follow-Up Pt was in [facility] 06/25-06/27 for left facial cellulitis . She was discharged on Augmentin and bactrim. She will finish these tonight. She states she is feeling better the dizziness has subsided and she is not having pain. [place] also gave her a Sotero 3. 2nd toe left foot. Pt states she cut it a month ago trimming her nails and it has turned black. documented in this encounter Miscellaneous Notes * Assessment & Plan Note - Mario Noland MD - 07/09/2024 6:39 PM EST Associated Problem(s): Hospital discharge follow-up Patient is finishing antibiotics today. There is no signs of cellulitis on exam today. Other symptoms also have not returned. Patient counseled on reasons to seek additional medical care. * Assessment & Plan Note - Mario Noland MD - 07/09/2024 6:39 PM EST Associated Problem(s): Onychomycosis Patient has previously been treated but when she developed cancer and had gone chemotherapy there was concern about liver dysfunction and so she has not been treated since then. She would like to seepodiatry for 2nd opinion. * Assessment & Plan Note - Mario Noland MD - 07/09/2024 6:38 PM EST Associated Problem(s): Non-Hodgkin lymphoma (HCC) In remission and following with Oncology, no changes * Assessment & Plan Note - Mario Noland MD - 07/09/2024 6:38 PM EST Associated Problem(s): Diffuse large B-cell lymphoma of lymph nodes of multiple regions (HCC) In remission and following with Oncology, no changes * Assessment & Plan Note - Mario Noland MD - 07/09/2024 6:38 PM EST Associated Problem(s): Type 2 diabetes mellitus with hemoglobin A1c goal of less than 8.0% (HCC) Last A1c controlled, no changes documented in this encounter Plan of Treatment Upcoming Encounters Date Type Department Care Team (Late st Contact Info) Description 07/31/2024 10:00 AM EST Office Visit [facility] [place] [phone] Héctor Johnson MD [address] [facility] [place] [address] 08/21/2024 9:45 AM EDT Hospital Encounter ENDO GECL, [address] [phone] Genoveva Bauer DO [address] [place] [address] 08/21/2024 9:45 AM EDT - 08/21/2024 10:15 AM EDT Surgery ENDO GECL, [address] [phone] Genoveva Bauer DO [address] [place] [address] COLONOSCOPY FLEXIBLE PROXIMAL DIAGNOSTIC Scheduled Procedures Name Priority Associated Diagnoses Date/Ti me COLONOSCOPY FLEXIBLE PROXIMAL DIAGNOSTIC Recall Family history of colon cancer 08/21/2024 9:45 AM EDT Scheduled Referrals Name Type Priority Associated Diagnoses Orde r Schedule PODIATRY REFERRAL OP Referral Within 10 days (routine) Type 2 diabetes mellitus with hemoglobin A1c goal of less than 8.0% (HCC) Onychomycosis Ordered: 07/09/2024 Health Maintenance Due Date Last Done Comments [...] Additional history exists Lipid Panel 01/31/2029 02/01/2024, 2 10/2021, 07/28/2020, Additional history exists Hepatitis B Vaccine [...] lymphoma type (HCC) Onychomycosis Dermatophytosis of nail Family history of colon cancer Family history of malignant neoplasm of gastrointestinal tract documented in this encounter Advance Directives Documents on File Type Date Recorded Patient Art Preparator Expl anation Advance Directives and Living Will 11/02/2005 Power of Pull Tab Dealer 11/02/2005 Care Teams Machine Fitter Relationship Specialty Start Date End Date Héctor Johnson MD [address] [place] [phone] PCP - General Family Medicine 05/20/21 documented as of this encounter"
--- OUTSIDE RECORDS SUMMARY | 2024-07-20 19:02 | External Medical Summary | Summary of Care ---
Author Name Unknown Organization [facility] Address [address] [facility] [address] Phone [phone] Care Team Providers Care Property Preservation Specialist Name Role Phone Héctor Johnson MD Primary Care Provider [phone] Reason for Visit * Reason Onset Date Comments Appointment 07/09/2024 Encounter Details Date Type Department Care Team (Late st Contact Info) Description [facility] [place] [phone] Mario Noland MD 21 [facility] [address] Appointment Allergies Active Allergy Reactions Criticality [...] 01/14/20 19 Active Lancets (ONETOUCH DELICA PLUS [id number]) MISCIndications:Ty pe 2 diabetes mellitus with hemoglobin A1c goal of less than 8.0% (HCC) Use to check blood sugar up to 3 times per day E11.9 100 Each 11 01/17/20 20 Active Pen [place] 32G X 4 MMIndications:Type 2 diabetes mellitus [...] suspected opioid overdose. Seek immediate medical attention. [email or web address] 1 Each 3 03/01/20 23 Active tiZANidine [...] needed. 09/02/19 24 Active FreeStyle Sotero 3 Pool Device Use as directed. Active FreeStyle Sotero 3 SensorIndications: Type 2 diabetes mellitus with hemoglobin A1c goal of less than 8.0% ([facility]) Use as directed every 14 days. E11.9 [...] research program 01/03/2020 Overview (09/15/2020): Fresh Food FarmScil Proteins: A Randomized Controlled Trial (Project # [id number]). The Fresh Food Farmacy program provides food-insecure diabetics with healthy food for their entire household (2 meals/ day X 5 days/week). The program also provides education on food preparation, healthy living, and diabetes self management. The research measures the effects of the program on patient health and wellbeing. Subject will begin the FFF program December 2019. Contact Information: Professional Nursing Tutor: Dr. Palmer Anders ([phone]) CRC: Glory Arteaga ([phone]) RA: Chiara Laura ([phone]) Diagnosis changed due to Research Module. Go [...] On prozac, was inc to 30 mg [id number].Still.,wean 04/18/2007 Screening for malignant neoplasm of cervix 01/16/2007 06/08/2010 Overview (01/31/2009): PAP--?sxp06--NO.Grill.----[facility] [place] , had post Fu and [...] mRNA, LNP-s, No Pre serve, 2-Dose Series ([employer]) 05/01/2021 Hepatitis B, 20+ yrs 11/28/1995,07/28/1994,05/30 PPD [...] 02/01/2024 Does the household have a re lar source of income? (Household - for ages [...] encounter Miscellaneous Notes * Telephone Encounter - Sonia Harris OSA - 07/09/2024 6:03 PM EST Please assist Pt in scheduling diabetic foot exam. documented in this encounter Plan of Treatment Upcoming Encounters Date Type Department Care Team (Late st Contact Info) Description 07/31/2024 10:00 AM EST Office Visit [facility] [place] [phone] Héctor Johnson [place] [address] 08/21/2024 9:45 AM EDT Hospital Encounter ENDO GECL, Endoscopy Suite [facility] [address] [facility] [place] [phone] Genoveva Bauer DO [address] [place] [address] 08/21/2024 9:45 AM EDT - 08/21/2024 10:15 AM EDT Surgery ENDO GECL, Endoscopy Suite [facility] [address] [facility] [place], [place] [phone] Genoveva Bauer, [address] [place] [address] COLONOSCOPY FLEXIBLE PROXIMAL DIAGNOSTIC Scheduled Procedures Name [...] Documents on File Type Date Recorded 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
[2024-07-20] MEDS ORDERED: DEXTROSE 50% 50 ML SYRINGE IV PRN (20:33)
[2024-07-20] MEDS ORDERED: GLUCOSE 40% GEL 15 GM TUBE PO PRN (20:33)
[2024-07-20] MEDS ORDERED: PHARMACY GLYCEMIC MGMT CONSULT PRN (20:33)
[2024-07-20] MEDS ORDERED: GLUCAGON FOR INJ 1 MG VIAL SQ PRN (20:33)
[2024-07-20] MEDS ORDERED: CARBOHYDRATES FOR HYPOGLYCEMIA PO PRN (20:33)
[2024-07-20] MEDS ORDERED: oxyCODONE/ACETAMINOPHEN 5mg/325mg TAB PO PRN (20:33)
[2024-07-20] MEDS ORDERED: GLUCOSE 10 TAB/TUBE PO PRN (20:33)
[2024-07-20 20:45] LABS: Appearance Urine Turbid (Clear); Bacteria Urine Automated 4+ (None Seen); Bilirubin Urine Negative (Negative); Blood Urine 2+ (Negative); Color Urine Yellow; Glucose Urine UA 3+ (Negative); Ketones Urine Trace (Negative); Leukocyte Esterase Urine 2+ (Negative); Nitrite Urine Negative (Negative); Protein Urine 2+ (Negative); Specific Gravity Urine 1.021 (1.000-1.030); Urobilinogen Urine Negative (Negative); WBC Urine Automated >50 /hpf (0-5)
[2024-07-20] MEDS: POLYETHYLENE (MIRALAX) 17 GM PACK PO SCH (20:47)
[2024-07-20] MEDS: DOCUSATE SODIUM 100 MG CAP PO ONE (20:47)
[2024-07-20] MEDS ORDERED: GABAPENTIN 100 MG CAP PO SCH (21:00)
[2024-07-20] MEDS: diphenhydrAMINE Capsule 25 MG CAP PO SCH (22:03)
[2024-07-20] MEDS: ATORVASTATIN 20 MG TAB PO SCH (22:03)
[2024-07-20] MEDS: GABAPENTIN 300 MG CAP PO SCH (22:04)
[2024-07-21] MEDS ORDERED: MoRPHine SULFATE 4 MG/ML 1 ML CARP\\VIAL IV PRN ×2 (00:21→08:11)
[2024-07-21 00:46] LABS: Magnesium 1.4 mg/dl (1.7-2.4)
--- OUTSIDE RECORDS SUMMARY | 2024-07-21 01:03 | External Medical Summary | Summary of Care ---
Author Name Unknown Organization [facility] Address [address] [facility] [address] Phone [phone] Care Team Providers Care Intern Product Marketing Manager Name Role Phone Héctor Johnson MD Primary Care Provider [phone] Reason for Visit * Reason Onset Date Comments Test Results 07/19/2024 Encounter Details Date Type Department Care Team (Late st Contact Info) Description [facility]/19[facility]2024 [facility] 21 [facility] [place] [phone] Héctor Johnson MD 21 [facility] [place] [address] Test Results Allergies Active Allergy Reactions Criticality Noted Date Comments Adhesive Tape Rash 04/22/2014 documented as of this encounter (statuses as of 07/20/2024) Medications ASPIRIN 81 MG PO TABSIndications:D M type 2, goal A1c below 7 ONE DAILY 30 Tab 5 011 Active Cranberry 1000 MG Capsule Start: 01/13/19 9:00:00 EDT, PO, Daily 019 Active Apple Cider Vinegar 188 MG CAPS Start: 01/13/19 14:02:00 EDT, Apple cider vinegar, PO, bid 019 Active Lancets (ONETOUCH DELICA PLUS [id number]) MISCIndications:T ype 2 diabetes mellitus with hemoglobin A1c goal of less than 8.0% ([facility]) Use to check blood sugar up to 3 times per day E11.9 100 Each 11 020 Active Pen [place] 32G X 4 MMIndications:Typ e 2 diabetes mellitus with hemoglobin A1c goal of less than 8.0% (HCC) Use as directed. For use with Tresiba insulin pen. 100 Each 3 021 Active Ibuprofen 200 MG Oral Tablet (Motrin) Take 3 Tablets by mouth 2 times a day as needed. In the morning and possibly 400mg mid day if needed. Active Ibuprofen PM 200-38 MG Oral Tablet (Ibuprofen-diphen hydrAMINE Cit) Take 2 Tablets by mouth at bedtime as needed. Active Ondansetron 4 MG Oral Tablet Disintegrating (Zofran) Place 1 Tablet on tongue as needed. 021 Active OneTouch Verio In Vitro Strip (Glucose Blood)Indications :Type 2 diabetes mellitus with hemoglobin A1c goal of less than 8.0% ([facility]) Test blood sugar 2 to 3 times a day and as needed. E11.9 100 Strip 11 022 Active SUMAtriptan Succinate 100 MG Oral TabletIndications :Migraine with aura ONE AT ONSET OF HEADACHE; MAY REPEAT DOSE IN TWO HOURS IF NEEDED; NO MORE THAN 2 PILLS/24 HRS OR 4 PILLS/WEEK 6 Tablet 2 023 Active Naloxone HCl 4 MG/0.1ML Nasal Liquid (Narcan Nasal) Administer 1 spray into 1 nostril for suspected opioid overdose. Seek immediate medical attention. [email or web address] I 1 Each 3 023 Active tiZANidine HCl 4 MG Oral CapsuleIndication s:Sprain lumbar region, initial encounter,Acute left-sided low back pain with left-sided sciatica Take 1 Capsule by mouth 2 times a day as needed for Muscle spasms. hold for sedation 28 Capsule 1 023 Active Docusate Sodium 100 MG Oral Capsule (Colace) Take 1 Capsule by mouth in the morning. 024 Active [employer] Purelax 17 GM Oral Packet Take 1 Packet by mouth daily as needed. 024 Active Tylenol PM Extra Strength 500-25 MG Oral Tablet (diphenhydrAMINE- APAP (sleep)) Take 1 Tablet by mouth 3 times a day as needed for Itching. Active Tresiba FlexTouch 100 UNIT/ML Subcutaneous Solution Pen-injector (Insulin Degludec)Indicati ons:Type 2 diabetes mellitus with hemoglobin A1c goal of less than 8.0% (HCC) 36 units nightly 5 Each 3 Active Additional Information Patient taking differently: 32 units nightly, Reported on 07/09/2024 Solifenacin Succinate 10 MG Oral Tablet (VESIcare)Indicat ions:Urinary incontinence, unspecified type Take 1 Tablet by mouth in the morning. 90 Tablet 3 Active Levothyroxine Sodium 150 MCG Oral Tablet (Levoxyl)Indicati ons:Acquired hypothyroidism TAKE 1 TABLET BY MOUTH EVERY DAY AT LEAST 30 MIN BEFORE BREAKFAST OR OTHER MEDICATION 90 Tablet 2 Active Alendronate Sodium 70 MG Oral Tablet (Fosamax) TAKE 1 TAB BY MOUTH ONCE A WEEK W/ 8OZ. WATER 30MIN BEFORE 1ST MEAL OF DAY. REMAIN UPRIGHT X30MIN 4 Tablet 11 Active Jardiance 25 MG Oral Tablet (Empagliflozin)In dications:Type 2 diabetes mellitus with hemoglobin A1c goal of less than 8.0% (HCC) TAKE 1 TABLET BY MOUTH EVERY DAY IN THE MORNING 30 Tablet 5 Active Lisinopril 10 MG Oral Tablet (Prinivil)Indicat ions:HTN, goal below 130/80 TAKE 1 TABLET BY MOUTH EVERY DAY IN THE MORNING 90 Tablet 1 Active metFORMIN HCl 1000 MG Oral Tablet (Glucophage)Indic ations:Dyslipidem ia, goal LDL below 100 TAKE 1 TABLET BY MOUTH TWICE A DAY 180 Tablet 1 Active Citalopram Hydrobromide 20 MG Oral Tablet (CeleXA)Indicatio ns:Depression, unspecified depression type TAKE 1 TABLET BY MOUTH EVERY DAY IN THE MORNING 90 Tablet Active Atorvastatin Calcium 20 MG Oral Tablet (Lipitor)Indicati ons:Dyslipidemia, goal LDL below 100 TAKE 1 TABLET BY MOUTH EVERY DAY 90 Tablet 1 Active Mupirocin 2 % External Ointment (Bactroban) Apply to wounds in scalp three times a day 22 g 5 03/13/20 24 10:09 AM EDT Active Additional Information Patient not taking.Reported on 05/08/2024 Doxycycline Hyclate 100 MG Oral Capsule Take 1 Capsule by mouth in the morning and 1 Capsule before bedtime. 60 Capsule 2 03/13/20 24 10:09 AM EDT Active Additional Information Patient not taking.Reported on 05/08/2024 Ozempic (1 MG/DOSE) 4 MG/3ML Subcutaneous Solution Pen-injector (Semaglutide (1 MG/DOSE))Indicati ons:Dyslipidemia, goal LDL below 100 INJECT 1 MG UNDER THE SKIN ONCE A WEEK 9 mL 1 Active Ventolin HFA 108 (90 Base) MCG/ACT Inhalation Aerosol SolutionIndicatio ns:Wheezing Inhale 2 Puffs by mouth every 4 hours as needed for Wheezing or Shortness of Breath. 18 g Active Probiotic Daily Oral Capsule Take 1 Capsule by mouth in the morning. Active oxyCODONE-Acetami nophen 5-325 MG Oral Tablet (Percocet) Take 1 Tablet by mouth every 6 hours as needed. Active FreeStyle Sotero 3 [place] Device Use as directed. Active FreeStyle Sotero 3 SensorIndications :Type 2 diabetes mellitus with hemoglobin A1c goal of less than 8.0% ([facility]) Use as directed every 14 days. E11.9 6 Each 3 025 Active Nitrofurantoin Monohyd Macro 100 MG Oral Capsule (Macrobid)Indicat ions:UTI due to extended-spectrum beta lactamase (ESBL) producing Escherichia coli Take 1 Capsule by mouth in the morning and 1 Capsule before bedtime. With food.. 90 Capsule 1 025 Active Omeprazole 40 MG Oral Capsule Delayed Release (PriLOSEC)Indicat ions:Gastroesopha geal reflux disease without esophagitis TAKE 1 CAPSULE BY MOUTH EVERY DAY 1 HOUR BEFORE THE FIRST MEAL OF THE DAY 30 Capsule 5 024 2024 Discontinued Nitrofurantoin Monohyd Macro 100 MG Oral Capsule (Macrobid) Take 1 Capsule by mouth in the morning and 1 Capsule before bedtime. With food.. 90 Capsule 1 024 2024 Discontinued(R efill) documented as of this encounter (statuses as of 07/20/2024) Active Problems Problem Noted Date Diagnosed Date [...] research program 01/03/2020 Overview (09/15/2020): Fresh Food InfoAssure: A Randomized Controlled Trial (Project # [id number]). The Fresh Food FarmFilmaka program provides food-insecure diabetics with healthy food for their entire household (2 meals/ day X 5 days/week). The program also provides education on food preparation, healthy living, and diabetes self management. The research measures the effects of the program on patient health and wellbeing. Subject will begin the FFF program December 2019. Contact Information: Test Hole Driller: Dr. Palmer Anders ([phone]) CRC: Glory Arteaga ([phone]) RA: Chiara Laura ([phone]) Diagnosis changed due to Research Module. Go [...] as of this encounter (statuses as of 07/20/2024) Resolved Problems Problem Noted Date Diagnosed Date [...] On prozac, was inc to 30 mg [id number].Still.,wean 04/18/2007 Screening for malignant neoplasm of cervix 01/16/2007 06/08/2010 Overview (01/31/2009): PAP--?[id number]--QS.Grill.[facility] Del , had post Fu and [...] as of this encounter (statuses as of 07/20/2024) Immunizations Name Administration Dates Next Due COVID-19 mRNA, LNP-s, No Pre serve, 2-Dose Series ([employer]) 05/01/2021 Hepatitis B, 20+ yrs 11/28/1995,07/28/1994,05/30 PPD [...] encounter Miscellaneous Notes * Telephone Encounter - Héctor Johnson MD - 07/20/2024 2:30 PM EST Called and relayed results to pt/ daughter that meropenem and gentamicin are only 2 IV abx that work. She is at [facility] and has not yet been seen. Will relay to provider when they come. * Telephone Encounter - Vanesa Rojas LPN - 07/20/2024 1:35 PM EST Call placed to pt. Her daughter Reashawna answer and said they are currently at the ER. Daughter states she called in to speak to Dr Johnson's nurse but was told that results were not backyet, but they would send a message to the nurses. The person pt's daughter spoke to told her to take pt to the ER due to pt having a lot of pain, vomiting and fever. She does still have her port. Daughter notified of Dr Johnsons message. * Telephone Encounter - Héctor Johnson MD - 07/20/2024 12:54 PM EST Macrobid twice daily restarted long-term due to resistance pattern. ID consulted, may need to use IVabx. Does she still have her port? * Telephone Encounter - Leatha Dawkins LPN - 07/20/2024 11:55 AM EST Preliminary results in chart * Telephone Encounter - Ely Shin OSA - 07/20/2024 11:04 AM EST Pt's daughter called in wanting the pt's labs to be reviewed valeriano due to the pt's history of cancerUTI can send her into septic shock, so they are wanting to catch it sooner than later * Telephone Encounter - Urszula Rivera CMA - 07/19/2024 2:30 PM EST Not released yet. * Telephone Encounter - oZ Waller OSA - 07/19/2024 1:43 PM EST Patient would like to know an update on her test results submitted on 07/18 with a urine sample . documented in this encounter Plan of Treatment Upcoming Encounters Date Type Department Care Team (Late st Contact Info) Description 07/31/2024 10:00 AM EST Office [facility] [address] [facility] [place] [phone] Héctor Johnson MD [address] [facility] [place] [address] 08/21/2024 9:45 AM EDT Hospital Encounter ENDO GECL[address] [phone] Genoveva Bauer DO [address] [place] [address] 08/21/2024 9:45 AM EDT - 08/21/2024 10:15 AM EDT Surgery ENDO GECL[address] [phone] Genoveva Bauer DO [address] [place] [address] COLONOSCOPY FLEXIBLE PROXIMAL DIAGNOSTIC Scheduled Procedures Name [...] lymphoma type (HCC) Onychomycosis Dermatophytosis of nail UTI due to extended-spectrum beta lactamase (ESBL) producing Escherichia coli- Primary Family history of colon cancer Family history of malignant neoplasm of gastrointestinal tract documented in this encounter Additional Health Concerns Infection Onset Date Last Indicated Resolved Time ESBL 07/18/2024 07/18/2024 documented as of this encounter Advance Directives Documents on File Type Date Recorded 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
--- OUTSIDE RECORDS SUMMARY | 2024-07-21 01:03 | External Medical Summary | Summary of Care ---
Author Name Unknown Organization [facility] Address [address] [facility] [address] Phone [phone] Care Team Providers Care Chief Of Pediatric Urology Name Role Phone Héctor Johnson MD Primary Care Provider [phone] Reason for Visit * Reason Onset Date Comments Test Results 07/19/2024 Encounter Details Date Type Department Care Team (Late st Contact Info) Description 07/19/2024 [facility] [place] [phone] Héctor Johnson MD 21 [place] [address] Test Results Allergies Active Allergy [...] bid 019 Active Lancets (ONETOUCH DELICA PLUS [id number]) MISCIndications:T ype 2 diabetes mellitus with hemoglobin A1c goal of less than 8.0% ([facility]) Use to check blood sugar up to 3 times per day E11.9 100 Each 11 020 Active Pen [place] 32G X 4 MMIndications:Typ e 2 diabetes [...] less than 8.0% ([facility]) Test blood sugar 2 to 3 times [...] suspected opioid overdose. Seek immediate medical attention. [email or web address] I 1 Each 3 023 Active tiZANidine [...] hours as needed. Active FreeStyle Sotero 3 [place] Device Use as directed. Active FreeStyle Sotero [...] research program 01/03/2020 Overview (09/15/2020): Fresh Food [employer] / TLL: A Randomized Controlled Trial (Project # [id number]). The Fresh Food [employer]Ideaxis program provides food-insecure diabetics with healthy food for their entire household (2 meals/ day X 5 days/week). The program also provides education on food preparation, healthy living, and diabetes self management. The research measures the effects of the program on patient health and wellbeing. Subject will begin the FFF program December 2019. Contact Information: Strategic Development Manager: Dr. Palmer Anders ([phone]) CRC: Glory Arteaga ([phone]) RA: Chiara Laura ([phone]) Diagnosis changed due to Research Module. Go [...] On prozac, was inc to 30 mg [id number].Still.,wean 04/18/2007 Screening for malignant neoplasm of cervix 01/16/2007 06/08/2010 Overview (01/31/2009): PAP--?vfw28--IK.Grill.----[facility] Del , had post Fu and pap [...] mRNA, LNP-s, No Pre serve, 2-Dose Series ([employer]) 05/01/2021 Hepatitis B, 20+ yrs 11/28/1995,07/28/1994,05/30 PPD [...] IV abx that work. She is at [facility] and has not yet been seen. Will [...] Not released yet. * Telephone Encounter - Zo Waller OSA - 07/19/2024 1:43 PM EST Patient would like to know an update on her test results submitted on 07/18 with a urine sample . documented in this encounter Plan of Treatment Upcoming Encounters Date Type Department Care Team (Late st Contact Info) Description 07/31/2024 10:00 AM EST [facility] [place] [phone] Héctor Johnson MD [facility] [place] [address] 08/21/2024 9:45 AM EDT Hospital Encounter ENDO GECL, [address] [phone] Genoveva Bauer DO [address] [place] [address] 08/21/2024 9:45 AM EDT - 08/21/2024 10:15 AM EDT Surgery ENDO GECL[address] [phone] Genoveva Bauer DO [address] [place] [address] COLONOSCOPY FLEXIBLE PROXIMAL DIAGNOSTIC Scheduled Procedures Name [...] Documents on File Type Date Recorded Patient 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
[2024-07-21] MEDS: MAGNESIUM SULFATE / D5W 1 GM/100 ML BAG IV SCH (01:04)
--- OUTSIDE RECORDS SUMMARY | 2024-07-21 01:04 | External Medical Summary | Summary of Care ---
Author Name Unknown Organization [facility] Address [address] [address] Phone [phone] Care Team Providers Care Fractionation Supervisor Name Role Phone Héctor Johnson MD Primary Care Provider [phone] Reason for Visit * Reason Onset Date Comments Test Results 07/19/2024 Encounter Details Date Type Department Care Team (Late st Contact Info) Description [facility] [place] [phone] Héctor Johnson MD [address] [place] [address] Test Results Allergies Active Allergy [...] bid 019 Active Lancets (ONETOUCH DELICA PLUS [id number]) MISCIndications:T ype 2 diabetes mellitus with hemoglobin A1c goal of less than 8.0% ([facility]) Use to check blood sugar up to 3 times per day E11.9 100 Each 11 020 Active Pen [place] 32G X 4 MMIndications:Typ e 2 diabetes [...] goal of less than 8.0% ([facility]) Test blood sugar 2 to 3 times [...] suspected opioid overdose. Seek immediate medical attention. [email or web address] I 1 Each 3 023 Active tiZANidine [...] hours as needed. Active FreeStyle Sotero 3 [place] Device Use as directed. Active FreeStyle Sotero 3 SensorIndications :Type 2 diabetes mellitus with hemoglobin A1c goal of less than 8.0% ([facility]) Use as directed every 14 days. E11.9 [...] research program 01/03/2020 Overview (09/15/2020): Fresh Food inexio: A Randomized Controlled Trial (Project # [id number]). The Fresh Food FarmReady program provides food-insecure diabetics with healthy food for their entire household (2 meals/ day X 5 days/week). The program also provides education on food preparation, healthy living, and diabetes self management. The research measures the effects of the program on patient health and wellbeing. Subject will begin the FFF program December 2019. Contact Information: X Ray Service Engineer: Dr. Palmer Anders ([phone]) CRC: Glory Atreaga ([phone]) RA: Chiara Laura ([phone]) Diagnosis changed due to Research Module. Go [...] On prozac, was inc to 30 mg [id number].,wean 04/18/2007 Screening for malignant neoplasm of cervix 01/16/2007 06/08/2010 Overview (01/31/2009): [facility][id number][facility] , had post Fu and [...] mRNA, LNP-s, No Pre serve, 2-Dose Series (Solar Notion) 05/01/2021 Hepatitis B, 20+ yrs 11/28/1995,07/28/1994,05/30 PPD [...] IV abx that work. She is at [facility] and has not yet been seen. Will [...] 12:54 PM EST Macrobid twice daily restarted usp due to resistance pattern. ID consulted, may [...] Description 07/31/2024 10:00 AM EST Office [facility] [address] [facility] [place] [phone] Héctor Johnson MD [address] [facility] [place] [address] 08/21/2024 9:45 AM EDT Hospital Encounter [facility] [address] [phone] Genoveva Bauer DO [address] [place] [address] 08/21/2024 9:45 AM EDT - 08/21/2024 10:15 AM EDT Surgery [facility] [address] [phone] Genoveva Bauer DO [address] [place] [address] COLONOSCOPY FLEXIBLE PROXIMAL DIAGNOSTIC Scheduled Procedures Name [...] Documents on File Type Date Recorded 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
[2024-07-21] MEDS: oxyCODONE HCL IR 5 MG TAB (IMMEDIATE RELEASE) PO PRN (01:34)
[2024-07-21 06:54] LABS: Basophils # (auto) 0.01 K/uL (0.00-0.20); Basophils % (auto) 0.3 %; Eosinophils # (auto) 0.02 K/uL (0.00-0.50); Eosinophils % (auto) 0.5 %; Hematocrit (blood only) 26.3 % (37.0-47.0); Hemoglobin 8.7 g/dl (12.0-16.0); Immature Granulocytes # (auto) 0.02 K/uL (0.01-0.20); Immature Granulocytes % (auto) 0.5 %; Lymphocytes # (auto) 0.24 K/uL (1.20-3.40); Lymphocytes % (auto) 6.3 %; Mean Corpuscular Hgb Conc 33.1 g/dL (32.0-36.0); Mean Corpuscular Volume 96.7 fL (80.0-100.0); Mean Platelet Volume 8.7 fL (9.4-12.4); Monocytes # (auto) 0.31 K/uL (0.11-0.59); Monocytes % (auto) 8.2 %; Neutrophils # (auto) 3.19 K/uL (1.40-6.50); Neutrophils % (auto) 84.2 %; Platelet Count 177 K/uL (130-400); RDW Coefficient of Variation 13.8 % (11.5-14.5); RDW Standard Deviation 48.8 fL (36.4-46.3); Red Blood Count 2.72 M/uL (4.20-5.40); White Blood Count 3.79 K/ul (4.8-10.8)
[2024-07-21] MEDS: LEVOTHYROXINE SODIUM 150 MCG TABLET PO SCH (07:06)
[2024-07-21 07:25] LABS: BUN Creatinine Ratio 40.9 (10-20); Calcium 7.9 mg/dl (8.6-10.3); Creatinine Clr Calc Pharmacy 103.9 ml/min; Potassium 3.7 mmol/L (3.5-5.1)
[2024-07-21] MEDS: ASPIRIN 81 MG ECTAB PO SCH (07:39)
[2024-07-21] MEDS: CITALOPRAM 20 MG TAB PO SCH (07:40)
[2024-07-21] MEDS: PANTOprazole 40 MG TAB PO SCH (07:40)
[2024-07-21] MEDS: ENOXAPARIN INJ 40 MG/0.4 ML SYR SQ SCH (07:40)
[2024-07-21] MEDS: tiZANidine HCL 4 MG TABLET PO PRN (07:40)
[2024-07-21] MEDS: INSULIN ASPART PER UNIT CHARGE SC SCH (08:21)
[2024-07-21] MEDS: DOCUSATE SODIUM 100 MG CAP PO SCH (08:22)
[2024-07-21] MEDS: LANTUS PER UNIT CHARGE SC SCH (08:22)
[2024-07-21] MEDS: SODIUM CHLORIDE 0.9% 1,000 ML IV SCH (08:22)
[2024-07-21 09:12] LABS: Estimated Average Glucose 146 mg/dl; Hemoglobin A1C 6.7 % (4.5-5.6)
[2024-07-21] MEDS: MAGNESIUM CHLORIDE W/CALCIUM 64MG DELAYED REL TAB PO SCH (09:21)
--- NOTE | 2024-07-21 13:11 | Hospitalist Progress Note ---
Date of Service July 21, 2024 Assessment & Plan (1) UTI (urinary tract infection): (2) Pyelonephritis: Plan: Acute pyelonephritis/Cystitis H/O ESBL E.coli Possible sepsis --CT ABD:Pyelonephritis and cystitis. Moderately distended gallbladder. This can be related to prolonged fasting. Correlate clinically. Macro impression large amounts of formed stool throughout the redundant colon without obstruction or thickening. -- Blood culture pending --Urine culture preliminary growing E. 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 Archibald -Consulted during recent last admission as pt was neutropenic - at that time plan was for bone marrow biopsy to be arranged as outpt -Plan for PET scan as outpt DVT Px: Lovenox SQ CODE STATUS Full code Admission and Anticipated Discharge Date Admission Date: July 20, 2024 Subjective Patient is seen and examined at bedside States having lower abdominal/groin pain Also reports some back discomfort from prior fall Denies any chest pain, dyspnea, nausea, vomiting No other complaints Review of Systems Review of Systems: All systems reviewed & are unremarkable except as noted in Subjective Physical Exam Physical Exam: Physical Exam: Vitals signs as noted above General Appearance:Moderately built and nourished, no apparent distress Head: normocephalic, Atraumatic Eyes: normal inspection, EOMI Neck: supple, Trachea midline Respiratory/Chest: Normal breath sounds, CTA, No accessory muscle use Cardiovascular: S1, S2, No murmur Abdomen/GI:Soft, tender lower quadrants, Bowel sounds present Extremities/Musculoskeletal:normal inspection, no edema Neurologic/Psych:AAOX3, grossly no focal neurological deficits Skin: normal color, warm Results & Data Results & Data Vital Signs (Past 12 Hours) Vital Signs Temp Pulse Pulse Resp BP Pulse Ox O2 Del Method 07/21/24 11:17 36.8 C 80 18 90/54 L 97 Room Air 07/21/24 09:30 36.7 C 79 18 80/55 L 97 Room Air 07/21/24 07:00 81 07/21/24 04:10 36.7 C 92 H 18 95/53 L 94 Room Air Laboratory Results Short CBC 07/20/24 07/21/24 Range/Units 15:11 06:29 WBC 5.34 3.79 L (4.8-10.8) K/ul Hgb 10.7 L 8.7 L (12.0-16.0) g/dl Hct 31.9 L 26.3 L (37.0-47.0) % Plt Count 185 177 (130-400) K/uL BMP 07/20/24 07/21/24 15:11 06:29 Sodium 131 L 136 Potassium 4.2 3.7 Chloride 100 106 Carbon Dioxide 21 24 BUN 34 H 27 H Creatinine 0.80 0.66 Glucose 168 H 238 H Calcium 9.1 7.9 L Liver Function 07/20/24 Range/Units 15:11 Total Bilirubin 0.7 (0.2-1.0) mg/dl AST 11 L (13-39) U/L ALT 11 (7-52) U/L Alkaline Phosphatase 51 (34-104) U/L Albumin 3.8 (3.4-5.0) gm/dl Urine 07/20/24 Range/Units 19:35 Urine Color Yellow Urine Appearance Turbid A (Clear) Urine pH 5.0 (4.5-7.5) Ur Specific [place] 1.021 (1.000-1.030) Urine Protein 2+ H (Negative) Urine Glucose (UA) 3+ H (Negative)
[2024-07-21] MEDS: ACETAMINOPHEN 325 MG TAB PO PRN (13:14)
--- NOTE | 2024-07-21 16:36 | Oncology Consultation ---
Date of Consultation July 21, 2024 Assessment & Plan (1) UTI (urinary tract infection): continue management of urinary tract infection for a primary internal medicine colleagues. She is being managed appropriately with her hospital internal medicine colleagues (2) Lymphoma: . Oncologically, there is no evidence of recurrence of lymphoma. Will continue outpatient surveillance of lymphoma with regular PET CT scans. Latest CT of the chest abdomen pelvis reviewed, there is no evidence of recurrence at this point. Plan Thank you for this interesting oncological consult. A total of 60 minutes spent in counseling, coordination of care, review of prior records. Oncology will continue to follow the patient make appropriate recommendations. History of Present Illness Reason for Consultation: History of diffuse large B-cell lymphoma Attending Physician: Titi Preston MD History of Present Illness Diagnosis: Diffuse large B-cell lymphoma, not otherwise specified Date of diagnosis: 08/11/2023 Stage: Stage IV IPI score: 3 Treatment: Polatuzumab plus R CHP x 6 cycles Followed by radiation therapy Pretreatment testing: HIV, hepatitis B, negative Polatuzumab-R CHP; cycle 1 day 1: 08/31/2023 Polatuzumab-R CHP, cycle 2-day 1: 09/21/2023 Polatuzumab R CHP; cycle 3-day 1: 10/12/2023 Polatuzumab R CHP, cycle 4-day 1: 11/02/2023 Polatuzuman R CHP, cycle 5-day 1: 11/23/2023 Polatuzumab R CHP, cycle 6-day 1: 12/14/2023 Pretreatment labs: Hemoglobin: 9.5 g/dL WBC count: 2.55 Platelet count: 194 ANC: 1.46 Creatinine: 0.58 Bilirubin: 0.6 LDH: [address] scan, 08/23/2023: HEAD AND NECK: There is normal distribution of F-18 radiopharmaceutical in the visualized brain with no evidence of abnormal radiopharmaceutical uptake. It should be noted that a contrast enhanced CT or MRI is more sensitive for evaluation of brain masses. There is no FDG-avid disease or significant lymphadenopathy in the head and neck. CHEST: There is no pleural or pericardial effusion. Right hilar lymph node measures 24 mm with FDG uptake, SUV max 11.27. Left axillary nodes measure up to 10 mm with FDG uptake, SUV max 3.16. ABDOMEN/PELVIS: Below the diaphragm, tracer is distributed physiologically in the gastrointestinal and genitourinary tracts. Prominent uptake is in the spleen, SUV max 11.5. There is lymphadenopathy most prominently the right internal and external iliac chains, SUV max 13. MUSCULOSKELETAL: Expansile lesions are seen in multiple muscles most prominently including the right gluteus medius and minimus, SUV max 20.2, and the left extensor compartment, SUV max 10.3. Diffuse foci of osseous disease are seen throughout the axial and appendicular skeleton. IMPRESSION: Extensive foci of disease are seen with multiple bony lesions, right hilar, left axillary, and right iliac lymphadenopathy, and muscular involvement in the pelvis and leg. Findings are compatible with diagnosis of B-cell lymphoma. PET CT scan, 10/26/2023: IMPRESSION: 1. Overall significant positive response to treatment. 2. No pathologically enlarged lymph nodes are identified. Previously characterized FDG avid lymphadenopathy and abnormal splenic activity have resolved. 3. Significant improvement in bony metastatic disease as compared to previous. There are foci of persistent low-level uptake throughout the skeletal structures as above which could represent residual disease versus marrow rebound. Continued attention at follow-up is recommended. 4. The lungs are clear. 5. Additional findings as above. MRI spine lumbo-thoracic; 12/24/2023; done for back pain: IMPRESSION: 1. Multifocal marrow replacement compatible with the patient's history of lymphoma with osseous involvement has not significantly changed compared to the 10/26/2023 PET/CT. 2. No acute pathologic fracture, or significant epidural tumor involvement. 3. Chronic mild T10 wedge deformity without retropulsion. 4. No significant central canal or foraminal narrowing within the thoracic or lumbar spine. IMPRESSION: 1. Multifocal marrow replacement compatible with the patient's history of lymphoma with osseous involvement has not significantly changed compared to the 10/26/2023 PET/CT. 2. No acute pathologic fracture, or significant epidural tumor involvement. 3. Chronic mild T10 wedge deformity without retropulsion. 4. No significant central canal or foraminal narrowing within the thoracic or lumbar spine. CT chest, 08/05/2023 IMPRESSION: 1. Lymphadenopathy is seen in the left axilla and right greater than left wesley. Findings are suspicious for neoplastic process such as lymphoma. 2. Patulous and fluid-filled esophagus, correlation for achalasia is recommended. Brain MRI, 08/05/2023: [address] no acute intracranial abnormality CT abdomen pelvis, 08/05/2023: IMPRESSION: 1. 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 There is also mass involving the right rectus femoris muscle and the left gluteus minimus. Additionally, the spleen is mildly enlarged with several splenic masses. There are also enlarged retroperitoneal lymph nodes, as well as right iliac chain lymphadenopathy extending into tube the right groin. This constellation of findings is highly suggestive of a neoplastic process such as lymphoma. Tissue sampling will likely be required for further assessment. 2. The skeletal structures are significantly heterogeneous suggesting metastatic bone involvement. 3. There is an air-fluid level within the bladder, possibly related to instrumentation. Correlate with clinical findings and urinalysis. 4. Coronary artery atherosclerosis. 5. Moderate to severe constipation. 6. Additional findings as above. Lymph node biopsy, left axilla, core biopsy, 08/11/2023: B-cell lymphoma, not otherwise specified Atypical lymphoid cells positive for CD20, PAX5, BCL6 and mum 1. Negative for CD10, CD30. Ki-67 shows a high proliferative index rate. Background T cells with CD3, CD5, CD8, CD7. JOSE by MURIEL is negative. DLBCL FISH for Bcl-2, BCL6, C MYC panel: Negative for Bcl-2, BCL6, c-Myc rearrangement Mediport placed, 08/30/2023 Echocardiogram, 08/31/2023: Ejection fraction 60 to 64% Strain of -21.5% PET CT scan, 02/08/2024: IMPRESSION: 1. Overall, positive treatment response compared to the prior study. 2. Interval improvement in the mild FDG uptake and thickening within the right gluteus medius muscle. 3. Multifocal patchy areas of mild marrow FDG uptake within the majority of the osseous structures has also improved. This could also be related to posttreatment changes. 4. No lymphadenopathy or splenomegaly. CT of the abdomen pelvis, 07/20/2024: IMPRESSION: 1. Pyelonephritis and cystitis. 2. Moderately distended gallbladder. This can be related to prolonged fasting. Correlate clinically. Macro impression large amounts of formed stool throughout the redundant colon without obstruction or thickening. the patient is a very pleasant 59-year-old woman who is well-known from [place] because of her history of diffuse large B-cell lymphoma, who comes to [facility] with a new urinary tract infection. On an outpatient basis she was found to have urine culture found to be positive for ESBL, subsequently the patient had a fever of 102.5. She was asked to come to [facility]. She had a CT of the abdomen pelvis which showed pyelonephritis and cystitis. Medical oncology has been consulted to assist in management of this patient with history of diffuse large B-cell lymphoma, currently dealing with a UTI and also has normocytic normochromic anemia Allergies Allergy/AdvReac Type Severity Reaction Status Date / Time adhesive tape Allergy Mild Rash/Itchin Verified 06/25/24 15:52 ess Home Medications Medication Instructions Recorded Confirmed Type metformin 1,000 mg tablet 1,000 mg PO BID ##0 09/21/09 07/20/24 History aspirin 81 mg tablet,delayed 81 mg PO QAM ##0 08/15/13 07/20/24 History release atorvastatin 20 mg tablet (Lipitor) 20 mg PO HS #0 tabs 08/15/13 07/20/24 History citalopram 20 mg tablet 20 mg PO QAM ##0 08/15/13 07/20/24 History alendronate 70 mg tablet 70 mg PO Q7D 08/05/23 07/20/24 History empagliflozin 25 mg tablet 25 mg PO QAM 08/05/23 07/20/24 History (Jardiance) levothyroxine 150 mcg tablet 150 mcg PO QAM 08/05/23 07/20/24 History omeprazole 40 mg capsule,delayed 40 mg PO QAM 08/05/23 07/20/24 History release semaglutide 1 mg/dose (4 mg/3 mL) 1 mg subcut Q7D 08/05/23 07/20/24 History subcutaneous pen injector (Ozempic) apple cider vinegar 500 mg tablet 500 mg PO QAM ##0 08/24/23 07/20/24 History cranberry 500 mg capsule 500 mg PO QAM ##0 08/24/23 07/20/24 History lisinopril 10 mg tablet 10 mg PO QAM ##0 09/15/23 07/20/24 History tizanidine 4 mg tablet 4 mg PO BID PRN Spasms 09/15/23 07/20/24 History oxycodone-acetaminophen 5 mg-325 1 tab PO Q6H PRN pain or fever 12/22/23 07/20/24 History mg tablet nitrofurantoin 100 mg PO DAILY 02/15/24 07/20/24 History monohydrate/macrocrystals 100 mg capsule (Macrobid) solifenacin 10 mg tablet (Vesicare) 10 mg PO QAM 02/15/24 07/20/24 History diphenhydramine HCl 25 mg capsule 25 mg PO HS 06/25/24 07/20/24 History (Benadryl) fluoride (sodium) 1.1 % dental 1 applic dental DAILY 06/25/24 07/20/24 History paste gabapentin 300 mg capsule 300 mg PO BID 06/25/24 07/20/24 History melatonin 10 mg tablet 20 mg PO HS 06/25/24 07/20/24 History L.acidop,casei,lactis,rham-B.lact,maria guadalupe 1 cap PO DAILY #14 caps 06/27/24 07/20/24 Rx 625 mg (10 billion cell) capsule (Advanced Probiotic) blood-glucose meter (OneTouch #1 ea 06/27/24 07/20/24 Rx Verio Flex Meter) gabapentin 100 mg capsule 100 mg PO BID #14 caps 06/27/24 07/20/24 Rx insulin degludec 100 unit/mL (3 32 unit subcut HS 07/20/24 07/20/24 History mL) subcutaneous pen (Tresiba FlexTouch U-100 insulin) Patient History Medical History FELICITY (obstructive sleep apnea) Nausea and vomiting after administration of anesthetic agent 2005, after , "but had eaten prior to procedure, procedure was an emergency, no issues since then" History of frequent urinary tract infections has had 4 since 02/2023 Hx of renal calculi Hx of migraines 32 years ago, had "migraine induced seizure, no seizures since then." Surgical History Port-A-Cath in place (08/30/23) Insertion Access Port with Fluoroscopy, Left subclavian (Left) - Parker Marie, DO S/P cystoscopy with ureteral stent placement w/laser destruction of kidney stone Hx of colonoscopy Family History Mother Cancer skin cancer Diabetes Hypertension Brother Colorectal cancer Hypertension Father Hypertension Other Mass of buttock Social History Smoking Status: Former smoker Tobacco Type: Cigarettes Second Hand Exposure: No; Do You Dip or Chew Tobacco: No; Tobacco Cessation Education Requested by Patient: No Hx Alcohol Use: Yes Alcohol type: other Alcohol type Comment: wine coolers Hx Substance Use: No Preferred Language: Irish Communication Ability: Effective 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 Beliefs That Will Affect Care: None Current Living Situation: Spouse Current Living Situation Comment: , son, grandchild current occupational status: other 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 Other Information That Helps Us Care for You: No Feels Safe at Home: Yes Safety Concerns: Feels Safe At This Time Assistive Devices: Glasses Review of Systems Review of Systems: All systems reviewed & are unremarkable except as noted in HPI & below Constitutional: as per Subjective / HPI Eyes: as per Subjective / HPI Ear, Nose, Mouth, Throat: as per Subjective / HPI Respiratory: as per Subjective / HPI Cardiovascular: as per Subjective / HPI Gastrointestinal: as per Subjective / HPI Genitourinary: as per Subjective / HPI Musculoskeletal: as per Subjective / HPI Integumentary: as per Subjective / HPI Neurologic: as per Subjective / HPI Psychiatric: as per Subjective / HPI Endocrine: as per Subjective / HPI Physical Exam Constitutional: WD/WN, vitals as above Eyes: PERRL, conjunctivae normal, anicteric sclerae ENMT: external ear and nose normal, oropharynx normal Neck: trachea midline, no thyromegaly Respiratory: normal respiratory effort, lungs clear to auscultation Cardiovascular: RRR, no murmur, no edema Gastrointestinal (Abdomen): normal bowel sounds, soft, nontender, no hepatosplenomegaly Musculoskeletal: no cyanosis or clubbing, extremities motor strength 5/5 Skin: no rashes, warm and dry Neurologic: patellar DTR's 2+ bilat, sensation intact Psychiatric: A+Ox3, euthymic affect Genitourinary: no vaginal lesions, no adnexal mass Lymphatic: no cervical or axillary lymphadenopathy Results & Data Vital Signs (Past 12 Hours) Vital Signs Temp Pulse Pulse Resp BP Pulse Ox O2 Del Method 07/21/24 16:00 36.7 C 94 H 18 102/54 L 92 Room Air 07/21/24 11:17 36.8 C 80 18 90/54 L 97 Room Air 07/21/24 09:30 36.7 C 79 18 80/55 L 97 Room Air 07/21/24 07:00 81 (2) Lymphoma Lymphoma type: non-Hodgkin Non-Hodgkin lymphoma type: B-cell
[2024-07-21] MEDS: ERTAPENEM 1000MG 1,000 MG/10 ML SYR IV SCH (18:02)
[2024-07-21] MEDS: MELATONIN 3 MG TAB PO SCH (20:51)
[2024-07-21] MEDS ORDERED: INSULIN ASPART PER UNIT CHARGE SC SCH (21:30)
[2024-07-22 07:03] LABS: Hematocrit (blood only) 25.9 % (37.0-47.0); Hemoglobin 8.5 g/dl (12.0-16.0); Mean Corpuscular Hemoglobin 31.8 pg (25.0-34.0); Mean Corpuscular Hgb Conc 32.8 g/dL (32.0-36.0); Mean Platelet Volume 8.6 fL (9.4-12.4); Platelet Count 143 K/uL (130-400); RDW Coefficient of Variation 13.7 % (11.5-14.5); RDW Standard Deviation 48.6 fL (36.4-46.3); Red Blood Count 2.67 M/uL (4.20-5.40); White Blood Count 2.81 K/ul (4.8-10.8)
[2024-07-22 07:11] LABS: BUN Creatinine Ratio 43.2 (10-20); Calcium 7.7 mg/dl (8.6-10.3); Magnesium 1.8 mg/dl (1.7-2.4); Potassium 3.9 mmol/L (3.5-5.1)
[2024-07-22] MEDS: LANTUS PER UNIT CHARGE SC SCH (08:18)
[2024-07-22] MEDS: HEPARIN 100 UNIT/ML 5ML FLUSH FLUSH PRN (11:03)
--- NOTE | 2024-07-22 14:45 | Hospitalist Progress Note ---
Date of Service July 22, 2024 Assessment & Plan (1) UTI (urinary tract infection): (2) Pyelonephritis: Plan: Acute pyelonephritis/Cystitis H/O ESBL E.coli Possible sepsis --CT ABD:Pyelonephritis and cystitis. Moderately distended gallbladder. This can be related to prolonged fasting. Correlate clinically. Macro impression large amounts of formed stool throughout the redundant colon without obstruction or thickening. -- Blood culture negative to date --Urine culture grew ESBL E. 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 Archibald -Consulted during recent last admission as pt was neutropenic - at that time plan was for bone marrow biopsy to be arranged as outpt -Plan for PET scan as outpt Appreciate oncology input DVT Px: Lovenox SQ CODE STATUS Full code Admission and Anticipated Discharge Date Admission Date: July 20, 2024 Subjective Patient is seen and examined at bedside States feeling a lot better today Abdominal pain much improved Blood pressure stable today Eager to get discharged No other new complaints today Denies any chest pain, dyspnea, nausea, vomiting Review of Systems Review of Systems: All systems reviewed & are unremarkable except as noted in Subjective Physical Exam Physical Exam: Physical Exam: Vitals signs as noted above General Appearance:Moderately built and nourished, no apparent distress Head: normocephalic, Atraumatic Eyes: normal inspection, EOMI Neck: supple, Trachea midline Respiratory/Chest: Normal breath sounds, CTA, No accessory muscle use Cardiovascular: S1, S2, No murmur Abdomen/GI:Soft, tender lower quadrants, Bowel sounds present Extremities/Musculoskeletal:normal inspection, no edema Neurologic/Psych:AAOX3, grossly no focal neurological deficits Skin: normal color, warm Results & Data Results & Data Vital Signs (Past 12 Hours) Vital Signs Temp Pulse Pulse Resp BP Pulse Ox O2 Del Method 07/22/24 11:24 37.0 C 77 18 120/74 98 Room Air 07/22/24 08:00 75 07/22/24 08:00 37.0 C 75 18 123/68 94 Room Air 07/22/24 04:44 36.9 C 80 18 109/68 98 Room Air Laboratory Results Short CBC 07/22/24 Range/Units 06:20 WBC 2.81 L (4.8-10.8) K/ul Hgb 8.5 L (12.0-16.0) g/dl Hct 25.9 L (37.0-47.0) % Plt Count 143 (130-400) K/uL BMP 07/22/24 06:20 Sodium 132 L Potassium 3.9 Chloride 103 Carbon Dioxide 21 BUN 19 Creatinine 0.44 L Glucose 118 H Calcium 7.7 L
--- NOTE | 2024-07-22 15:25 | Pharmacy Report ---
Pharmacy Glycemic Short Note 2 - Date of Service July 22, 2024 - Glycemic Short BSG Results (Last 24 hours): 07/21/24 07/21/24 07/22/24 16:18 20:37 06:20 Glucose 118 H POC Glucose 149 H 157 H 07/22/24 07/22/24 07:27 11:22 Glucose POC Glucose 135 H 132 H OUTPATIENT ANTIDIABETIC REGIMEN: * Tresiba 34 units SQ qam * Ozempic * Jardiance * Metformin * A1c =6.7% (07/21/24) ASSESSMENT: * PMH diffuse Large B-cell lymphoma, hypothyroidism, DM2, HLD, and HTN admitted with UTI. * Miguel required 31 units of SQ insulin yesterday with adequate glycemic control, 25 units Lantus + 6 units of Novolog. * Fasting BSG trending downward (174 -> 118 mg/dL) and current regimen is very basal heavy. Will decrease Lantus ~25%. * No changes to Novolog per minimal CHO intake yesterday PLAN FOR INPATIENT GLYCEMIC CONTROL: * Hold outpatient oral diabetes medications * Basal insulin * Lantus 18 units SQ qAM * Bolus insulin * NovoLog per scale ACHS or Q6hrs while NPO * Goal Range: Low 110 mg/dL - High 140 mg/dL * Correction Factor: 25 mg/dL/unit * Nutritional / Prandial insulin per carb ratio of 1 unit per 7 grams CHO consumed
[2024-07-22] MEDS: ONDANSETRON INJ 2 MG/ML 2 ML VIAL IV PRN (16:46)
[2024-07-23] MEDS: SODIUM CHLORIDE 0.9% 1,000 ML IV ONE (06:33)
[2024-07-23 07:29] LABS: Hematocrit (blood only) 27.2 % (37.0-47.0); Hemoglobin 9.2 g/dl (12.0-16.0); Mean Corpuscular Hemoglobin 31.7 pg (25.0-34.0); Mean Corpuscular Hgb Conc 33.8 g/dL (32.0-36.0); Mean Corpuscular Volume 93.8 fL (80.0-100.0); Mean Platelet Volume 8.7 fL (9.4-12.4); Platelet Count 164 K/uL (130-400); RDW Coefficient of Variation 13.2 % (11.5-14.5); RDW Standard Deviation 45.3 fL (36.4-46.3); White Blood Count 2.59 K/ul (4.8-10.8)
[2024-07-23 07:33] LABS: BUN Creatinine Ratio 25.9 (10-20); Calcium 8.3 mg/dl (8.6-10.3); Creatinine Clr Calc Pharmacy 128.7 ml/min; Magnesium 1.7 mg/dl (1.7-2.4); Potassium 4.2 mmol/L (3.5-5.1)
[2024-07-23 07:50] LABS: Appearance Urine Clear (Clear); Bacteria Urine Automated None Seen (None Seen); Bilirubin Urine Negative (Negative); Blood Urine Negative (Negative); Cast Urine Automated 0-2 /lpf (0-2); Color Urine Yellow; Epithelial Cell Urine Auto 0-2 /hpf (0-2); Glucose Urine UA 3+ (Negative); Ketones Urine 1+ (Negative); Leukocyte Esterase Urine Trace (Negative); Nitrite Urine Negative (Negative); Protein Urine Negative (Negative); RBC Urine Automated 0-2 /hpf (0-2); Specific Gravity Urine 1.011 (1.000-1.030); Urobilinogen Urine Negative (Negative); WBC Urine Automated 0-5 /hpf (0-5)
--- NOTE | 2024-07-23 09:46 | Infectious Disease Consult ---
Date of Service July 24, 2024 Telehealth Information I performed this visit using a real-time telehealth connection between my location and the patients location ([facility]). After connecting through interactive tele-video, patient was identified by name and date of and/or wristband check.Patient (or authorized healthcare sales representative graphic art) was informed that this was a telemedicine visit and it was being conducted confidentially over secure lines. My office door was closed and no one else was present in the room with me.Patient (or authorized healthcare sales representative graphic art) provided consent to proceed with the visit, expressed an understanding of privacy and security of the telemedicine visit, and gave permission to have a hospital sales representative graphic art in the room in order to assist with the visit and to conduct portions of the visit, as needed. I informed the patient (or authorized healthcare sales representative graphic art) that I reviewed their record and presented the opportunity for them to ask any questions regarding the visit today. The patient agreed to participate. Assessment & Plan (1) Pyelonephritis: (2) B-cell lymphoma: (3) UTI due to extended-spectrum beta lactamase (ESBL) producing Escherichia coli: Plan -Continue Ertapenem 1g IV qd for a total of 14 days from 07/21, though 08/04 for treatment of her ESBL Ecoli pyelonephritis -ID will sign off at this time Case discussed with ID Attending Dr. 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 She reported having fevers as outpatient to 102.5F with abdominal pain which radiated to her legs, refractory despite taking her home Rx Percocet. On presentation 07/20 BP 83/53 hr101 T36.6 on RA, wbc 5.34. CT a/p concerning for L>R ureter enhancement and thickening of he urinary bladder. 07/20 Uclx with ESBL Ecoli R- cefepime/Levo/Cipro I-zosyn, S-Meropenem/Ertapenem/Nirto, Bclx with no growth to date. Patient responding to ICF resuscitation and started on Ertapenem therapy. ID consulted for further guidance in setting on cUTI. Of note patient spiking fever on 07/23 to 39.3C at 3:22AM, wbc 2.59, bp 96/54 mmhg, on RA. Pt currently saying that her lower abdominal pain and the radiation to her legs has stopped. She previously had mild Left sided flank pain but this has subsided. She is tolerating po hydration and nutrition and denies any SOB, CP, Palpitations, SINGER, changes in vision, N/V/D. Allergies Allergy/AdvReac Type Severity Reaction Status Date / Time adhesive tape Allergy Mild Rash/Itchin Verified 06/25/24 15:52 ess Home Medications Medication Instructions Recorded Confirmed Type metformin 1,000 mg tablet 1,000 mg PO BID ##0 09/21/07/20/24 History aspirin 81 mg tablet,delayed 81 mg PO QAM ##0 08/15/13 07/20/24 History release atorvastatin 20 mg tablet (Lipitor) 20 mg PO HS #0 tabs 08/15/13 07/20/24 History citalopram 20 mg tablet 20 mg PO QAM ##0 08/15/13 07/20/24 History alendronate 70 mg tablet 70 mg PO Q7D 08/05/23 07/20/24 History empagliflozin 25 mg tablet 25 mg PO QAM 08/05/23 07/20/24 History (Jardiance) levothyroxine 150 mcg tablet 150 mcg PO QAM 08/05/23 07/20/24 History omeprazole 40 mg capsule,delayed 40 mg PO QAM 08/05/23 07/20/24 History release semaglutide 1 mg/dose (4 mg/3 mL) 1 mg subcut Q7D 08/05/23 07/20/24 History subcutaneous pen injector (Ozempic) apple cider vinegar 500 mg tablet 500 mg PO QAM ##0 08/24/23 07/20/24 History cranberry 500 mg capsule 500 mg PO QAM ##0 08/24/23 07/20/24 History lisinopril 10 mg tablet 10 mg PO QAM ##0 09/15/23 07/20/24 History tizanidine 4 mg tablet 4 mg PO BID PRN Spasms 09/15/23 07/20/24 History oxycodone-acetaminophen 5 mg-325 1 tab PO Q6H PRN pain or fever 12/22/23 07/20/24 History mg tablet nitrofurantoin 100 mg PO DAILY 02/15/24 07/20/24 History monohydrate/macrocrystals 100 mg capsule (Macrobid) solifenacin 10 mg tablet (Vesicare) 10 mg PO QAM 02/15/24 07/20/24 History diphenhydramine HCl 25 mg capsule 25 mg PO HS 06/25/24 07/20/24 History (Benadryl) fluoride (sodium) 1.1 % dental 1 applic dental DAILY 06/25/24 07/20/24 History paste gabapentin 300 mg capsule 300 mg PO BID 06/25/24 07/20/24 History melatonin 10 mg tablet 20 mg PO HS 06/25/24 07/20/24 History L.acidop,casei,lactis,rham-B.lact,maria guadalupe 1 cap PO DAILY #14 caps 06/27/24 07/20/24 Rx 625 mg (10 billion cell) capsule (Advanced Probiotic) blood-glucose meter (OneTouch #1 ea 06/27/24 07/20/24 Rx Verio Flex Meter) gabapentin 100 mg capsule 100 mg PO BID #14 caps 06/27/24 07/20/24 Rx insulin degludec 100 unit/mL (3 32 unit subcut HS 07/20/24 07/20/24 History mL) subcutaneous pen (Tresiba FlexTouch U-100 insulin) Patient History Medical History FELICITY (obstructive sleep apnea) Nausea and vomiting after administration of anesthetic agent 2005, after , "but had eaten prior to procedure, procedure was an emergency, no issues since then" History of frequent urinary tract infections has had 4 since 02/2023 Hx of renal calculi Hx of migraines 32 years ago, had "migraine induced seizure, no seizures since then." Surgical History Port-A-Cath in place (08/30/23) Insertion Access Port with Fluoroscopy, Left subclavian (Left) - [facility] Marie, S/P cystoscopy with ureteral stent placement w/laser destruction of kidney stone Hx of colonoscopy Family History Mother Cancer skin cancer Diabetes Hypertension Brother Colorectal cancer Hypertension Father Hypertension Other Mass of buttock Social History Smoking Status: Former smoker Tobacco Type: Cigarettes Second Hand Exposure: No; Do You Dip or Chew Tobacco: No; Tobacco Cessation Education Requested by Patient: No Hx Alcohol Use: Yes Alcohol type: other Alcohol type Comment: wine coolers Hx Substance Use: No Preferred Language: Qatari Communication Ability: Effective Attendance Officer Required: No Beliefs That Will Affect Care: None Current Living Situation: Spouse Current Living Situation Comment: , son, grandchild current occupational status: other 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 Other Information That Helps Us Care for You: No Feels Safe at Home: Yes Safety Concerns: Feels Safe At This Time Assistive Devices: Walker Review of Systems Constitutional: No fever/chills Eyes: No pain, drainage, vision change HENT: No ear pain/drainage, sinus infections, hearing loss Cardiovascular: No chest pain, palpitations, lower extremity swelling Respiratory: No shortness of breath, wheezing, cough, sputum production Gastrointestinal: No further abdominal pain, denies N/V/D : Urinary burning has subsided MSK: Left sided flak pain subsided Skin: No rash, lesions Neurological: No dizziness, weakness, confusion, sensory changes Results & Data Vital Signs (Past 12 Hours) Vital Signs Temp Pulse Pulse Resp BP Pulse Ox O2 Del Method 07/23/24 08:00 36.5 C 76 18 96/54 L 97 Room Air 07/23/24 07:00 71 07/23/24 05:50 36.6 C 137/87 07/23/24 04:04 38 C H 07/23/24 03:22 39.3 C H 88 20 138/80 91 Room Air 07/23/24 01:19 74 07/22/24 22:35 36.5 C 69 18 115/73 90 Room Air Laboratory Results Microbiology 07/20/24 16:20 Blood Aerobic Blood Culture - Preliminary No growth in Aerobic bottle after 48 hours. 07/20/24 16:20 Blood Anaerobic Blood Culture - Preliminary No growth in Anaerobic bottle after 48 hours. 07/20/24 15:11 Blood Aerobic Blood Culture - Preliminary No growth in Aerobic bottle after 48 hours. 07/20/24 15:11 Blood Anaerobic Blood Culture - Preliminary No growth in Anaerobic bottle after 48 hours. 07/20/24 19:35 Urine,Clean Catch Urine Culture - Final Escherichia coli ESBL Diagnostic Findings Laboratory Results WBC 2.59 K/ul (4.8-10.8) L 07/23/24 06:55 RBC 2.90 M/uL (4.20-5.40) L 07/23/24 06:55 Hgb 9.2 g/dl (12.0-16.0) L 07/23/24 06:55 Hct 27.2 % (37.0-47.0) L 07/23/24 06:55 MCV 93.8 fL (80.0-100.0) 07/23/24 06:55 MCH 31.7 pg (25.0-34.0) 07/23/24 06:55 MCHC 33.8 g/dL (32.0-36.0) 07/23/24 06:55 RDW Std Deviation 45.3 fL (36.4-46.3) 07/23/24 06:55 RDW Coeff of Lisset 13.2 % (11.5-14.5) 07/23/24 06:55 Plt Count 164 K/uL (130-400) 07/23/24 06:55 MPV 8.7 fL (9.4-12.4) L 07/23/24 06:55 Immature Gran % (Auto) 0.5 % 07/21/24 06:29 Neut % (Auto) 84.2 % 07/21/24 06:29 Lymph % (Auto) 6.3 % 07/21/24 06:29 Hall % (Auto) 8.2 % 07/21/24 06:29 Eos % (Auto) 0.5 % 07/21/24 06:29 Baso % (Auto) 0.3 % 07/21/24 06:29 Neut # (Auto) 3.19 K/uL (1.40-6.50) 07/21/24 06:29 Lymph # (Auto) 0.24 K/uL (1.20-3.40) L 07/21/24 06:29 Hall # (Auto) 0.31 K/uL (0.11-0.59) 07/21/24 06:29 Eos # (Auto) 0.02 K/uL (0.00-0.50) 07/21/24 06:29 Baso # (Auto) 0.01 K/uL (0.00-0.20) 07/21/24 06:29 Immature Gran # (Auto) 0.02 K/uL (0.01-0.20) 07/21/24 06:29 PT 10.6 Seconds (9.0-12.0) 07/20/24 15:11 INR 1.0 (0.9-1.1) 07/20/24 15:11 Sodium 134 mmol/L (136-145) L 07/23/24 06:55 Potassium 4.2 mmol/L (3.5-5.1) 07/23/24 06:55 Chloride 103 mmol/L (98-107) 07/23/24 06:55 Carbon Dioxide 25 mmol/L (21-32) 07/23/24 06:55 Anion Gap 6 (3-11) 07/23/24 06:55 BUN 14 mg/dl (6-23) 07/23/24 06:55 Creatinine 0.54 mg/dl (0.6-1.2) L 07/23/24 06:55 Est Cr Clr Drug Dosing 128.7 ml/min 07/23/24 06:55 eGFR 107.32 07/23/24 06:55 BUN/Creatinine Ratio 25.9 (10-20) H 07/23/24 06:55 Glucose 178 mg/dl (70-99(Fasting)) H 07/23/24 06:55 POC Glucose 158 mg/dl (70-99) H 07/24/24 11:32 Estimat Average Glucose 146 mg/dl 07/21/24 06:29 Hemoglobin A1c 6.7 % (4.5-5.6) H 07/21/24 06:29 Lactate 0.7 mmol/L (0.4-2.0) 07/20/24 Unknown Calcium 8.3 mg/dl (8.6-10.3) L 07/23/24 06:55 Ionized Calcium 1.15 mmol/L (1.12-1.32) 07/23/24 06:55 Magnesium 1.7 mg/dl (1.7-2.4) 07/23/24 06:55 Total Bilirubin 0.7 mg/dl (0.2-1.0) 07/20/24 15:11 AST 11 U/L (13-39) L 07/20/24 15:11 ALT 11 U/L (7-52) 07/20/24 15:11 Alkaline Phosphatase 51 U/L (34-104) 07/20/24 15:11 Troponin I High Sens 11.7 pg/ml (0-14) 07/20/24 15:11 Total Protein 6.4 gm/dl (6.0-8.3) 07/20/24 15:11 Albumin 3.8 gm/dl (3.4-5.0) 07/20/24 15:11 Globulin 2.6 gm/dl (2.5-4.0) 07/20/24 15:11 Albumin/Globulin Ratio 1.5 (0.9-2) 07/20/24 15:11 Lipase 11 U/L (11-82) 07/20/24 15:11 25-OH Vitamin D Total 11.5 ng/ml (30-100) L 07/23/24 06:55 Procalcitonin 1.69 ng/ml (0-0.5) H 07/20/24 15:11 Urine Color Yellow 07/23/24 06:20 Urine Appearance Clear (Clear) 07/23/24 06:20 Urine pH 6.0 (4.5-7.5) 07/23/24 06:20 Ur Specific [place] 1.011 (1.000-1.030) 07/23/24 06:20 Urine Protein Negative (Negative) 07/23/24 06:20 Urine Glucose (UA) 3+ (Negative) H 07/23/24 06:20 Urine Ketones 1+ (Negative) H 07/23/24 06:20 Urine Blood Negative (Negative) 07/23/24 06:20 Urine Nitrite Negative (Negative) 07/23/24 06:20 Urine Bilirubin Negative (Negative) 07/23/24 06:20 Urine Urobilinogen Negative (Negative) 07/23/24 06:20 Ur Leukocyte Esterase Trace (Negative) H 07/23/24 06:20 Urine WBC (Auto) 0-5 /hpf (0-5) 07/23/24 06:20 Urine RBC (Auto) 0-2 /hpf (0-2) 07/23/24 06:20 U Hyaline Cast (Auto) 0-2 /lpf (0-2) 07/23/24 06:20 U Epithel Cells (Auto) 0-2 /hpf (0-2) 07/23/24 06:20 Urine Bacteria (Auto) None Seen (None Seen) 07/23/24 06:20 Impressions Abdomen/Pelvis CT 07/20/24 14:16 EXAM: CT Abdomen and Pelvis With Intravenous Contrast INDICATION: Abdominal pain. UTI symptoms. Sepsis. TECHNIQUE: Axial computed tomography images of the abdomen and pelvis with intravenous contrast. Sagittal and coronal reformatted images were created and reviewed. This CT exam was performed using one or more of the following dose reduction techniques: automated exposure control, adjustment of the mA and/or kV according to patient size, and/or use of iterative reconstruction technique. CONTRAST: 93 ml of Optiray 320 was administered intravenously. COMPARISON: 06/25/2024 FINDINGS: Limitations: None. Lung bases: No abnormality noted. Pleural space: No visualized pleural effusion or pneumothorax. Heart: No abnormality noted. Mediastinum: Stable small hiatal hernia. ABDOMEN: Liver: No abnormality noted. Gallbladder and bile ducts: The gallbladder is moderate to markedly distended. No calcified stones. No ductal dilatation. No gas. Pancreas: Homogeneous enhancement. No mass, inflammation or ductal dilation. Spleen: No significant abnormality noted. Adrenals: No significant abnormality noted. Kidneys and ureters: There is right greater than left diffuse urothelial thickening of the urinary tracts. No stone, gas or hydronephrosis. Simple right renal cyst/s. No simple cyst follow-up necessary. Left kidney appears normal. No renal stone, hydronephrosis or perinephric fluid. Stomach and bowel: Moderate to large amounts of stool throughout the redundant colon. PELVIS: Appendix: No findings to suggest acute appendicitis. Bladder: There is mild thickening of the urinary bladder. No stone or gas. Reproductive: No abnormalities noted. ABDOMEN and PELVIS: Intraperitoneal space: No free air. No significant fluid collection. Bones/joints: Degenerative changes noted in the spine. Chronic appearing superior endplate compression deformity of L3. No acute osseous abnormality. Soft tissues: There are small bilateral fat containing inguinal hernias. Intact ventral hernia repair. Vasculature: Atherosclerotic calcification of the aorta and branches. No aneurysm. Lymph nodes: No pathologically enlarged lymph nodes. IMPRESSION: 1. Pyelonephritis and cystitis. 2. Moderately distended gallbladder. This can be related to prolonged fasting. Correlate clinically. Macro impression large amounts of formed stool throughout the redundant colon without obstruction or thickening. ACT 112: Negative or not required by law. Electronically signed by Karena Collado 07-20-2024 5:15 PM Chest X-Ray 07/20/24 14:16 XR chest 1V portable CLINICAL HISTORY: Abdominal pain COMPARISON STUDY: 06/25/2024 FINDINGS: Single view portable chest demonstrates no significant interval change. There is no infiltrate or pleural effusion. The heart and pulmonary vascularity are unremarkable. There is a left-sided subclavian venous catheter tip in the superior vena cava. IMPRESSION: Stable exam; no acute process ACT 112: Negative or not required by law. Electronically signed by: Misty Hinojosa M.D. 07/20/2024 3:14 PM (2) B-cell lymphoma B-cell lymphoma type: diffuse large B-cell Lymphoma site: unspecified region Qualified Code(s): C83.30 - Diffuse large B-cell lymphoma, unspecified site
--- NOTE | 2024-07-23 13:11 | Pharmacy Report ---
Pharmacy Glycemic Short Note 2 - Date of Service July 23, 2024 - Glycemic Short BSG Results (Last 24 hours): 07/22/24 07/22/24 07/23/24 16:30 20:33 06:01 Glucose POC Glucose 112 H 200 H 149 H 07/23/24 07/23/24 07/23/24 06:55 07:29 11:21 Glucose 178 H POC Glucose 190 H 64 L* OUTPATIENT ANTIDIABETIC REGIMEN: * Tresiba 34 units SQ qam * Ozempic * Jardiance * Metformin * A1c =6.7% (07/21/24) ASSESSMENT: 07/23 * Fasting 190 mg/dL this morning- received 18 units of basal yesterday, continued with this this morning, monitor trend for increase * BSGs within range with exception of HS yesterday, however, hypoglycemic at lunch today. Loosened novolog coverage for now. 07/21 * PMH diffuse Large B-cell lymphoma, hypothyroidism, DM2, HLD, and HTN admitted with UTI. * Miguel required 31 units of SQ insulin yesterday with adequate glycemic control, 25 units Lantus + 6 units of Novolog. * Fasting BSG trending downward (174 -> 118 mg/dL) and current regimen is very basal heavy. Will decrease Lantus ~25%. * No changes to Novolog per minimal CHO intake yesterday PLAN FOR INPATIENT GLYCEMIC CONTROL: * Hold outpatient oral diabetes medications * Basal insulin * Lantus 18 units SQ qAM * Bolus insulin * NovoLog per scale ACHS or Q6hrs while NPO * Goal Range: Low 110 mg/dL - High 140 mg/dL * Correction Factor: 30 mg/dL/unit * Nutritional / Prandial insulin per carb ratio of 1 unit per 9 grams CHO consumed
--- NOTE | 2024-07-23 17:58 | Hospitalist Progress Note ---
Date of Service July 23, 2024 Assessment & Plan (1) UTI (urinary tract infection): (2) Pyelonephritis: Plan: Acute pyelonephritis/Cystitis H/O ESBL E.coli Possible sepsis --CT ABD:Pyelonephritis and cystitis. Moderately distended gallbladder. This can be related to prolonged fasting. Correlate clinically. Macro impression large amounts of formed stool throughout the redundant colon without obstruction or thickening. -- Blood culture negative to date --Urine culture grew ESBL E. coli --Normal lactic acid level Continue IV ertapenem Received IV fluids Given recurrent UTIs, consulted infectious disease Await ID input Has been febrile intermittently. 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 Archibald -Consulted during recent last admission as pt was neutropenic - at that time plan was for bone marrow biopsy to be arranged as outpt -Plan for PET scan as outpt Appreciate oncology input DVT Px: Lovenox SQ CODE STATUS Full code Admission and Anticipated Discharge Date Admission Date: July 20, 2024 Subjective Patient is seen and examined at bedside Febrile today Abdominal pain improved Denies any chest pain, dyspnea, nausea, vomiting No other complaints today Review of Systems Review of Systems: All systems reviewed & are unremarkable except as noted in Subjective Physical Exam Physical Exam: Physical Exam: Vitals signs as noted above General Appearance:Moderately built and nourished, no apparent distress Head: normocephalic, Atraumatic Eyes: normal inspection, EOMI Neck: supple, Trachea midline Respiratory/Chest: Normal breath sounds, CTA, No accessory muscle use Cardiovascular: S1, S2, No murmur Abdomen/GI:Soft, tender lower quadrants, Bowel sounds present Extremities/Musculoskeletal:normal inspection, no edema Neurologic/Psych:AAOX3, grossly no focal neurological deficits Skin: normal color, warm Results & Data Results & Data Vital Signs (Past 12 Hours) Vital Signs Temp Pulse Pulse Pulse Resp BP Pulse Ox 07/23/24 17:19 36.8 C 69 16 122/81 98 07/23/24 16:00 36.8 C 74 18 123/71 94 07/23/24 15:00 38.7 C H 07/23/24 11:49 36.9 C 86 19 129/81 98 07/23/24 08:00 36.5 C 76 18 96/54 L 97 07/23/24 07:00 71 O2 Del Method 07/23/24 17:19 Room Air 07/23/24 16:00 Room Air 07/23/24 15:00 07/23/24 11:49 Room Air 07/23/24 08:00 Room Air 07/23/24 07:00 Laboratory Results Short CBC 07/23/24 Range/Units 06:55 WBC 2.59 L (4.8-10.8) K/ul Hgb 9.2 L (12.0-16.0) g/dl Hct 27.2 L (37.0-47.0) % Plt Count 164 (130-400) K/uL BMP 07/23/24 06:55 Sodium 134 L Potassium 4.2 Chloride 103 Carbon Dioxide 25 BUN 14 Creatinine 0.54 L Glucose 178 H Calcium 8.3 L Urine 07/23/24 Range/Units 06:20 Urine Color Yellow Urine Appearance Clear (Clear) Urine pH 6.0 (4.5-7.5) Ur Specific [place] 1.011 (1.000-1.030) Urine Protein Negative (Negative) Urine Glucose (UA) 3+ H (Negative) (1) UTI (urinary tract infection) Urinary tract infection type: site unspecified
[2024-07-24] MEDS: LANTUS PER UNIT CHARGE SC SCH (08:09)
[2024-07-24] MEDS: SODIUM CHLORIDE 0.9% 1,000 ML IV ONE (08:36)
[2024-07-24] MEDS: SODIUM CHLORIDE 0.9% 250 ML IV ONE (08:41)
--- NOTE | 2024-07-24 10:56 | Pharmacy Report ---
Pharmacy Glycemic Short Note 2 - Date of Service July 24, 2024 - Glycemic Short BSG Results (Last 24 hours): 07/23/24 07/23/24 07/23/24 11:21 16:33 20:51 POC Glucose 64 L* 192 H 279 H 07/24/24 07:33 POC Glucose 251 H OUTPATIENT ANTIDIABETIC REGIMEN: * Tresiba 34 units SQ qam * Ozempic * Jardiance * Metformin * A1c =6.7% (07/21/24) ASSESSMENT: 07/24 * Miguel received 36 units of SQ insulin yesterday (18 units of basal + 18 units of bolus) * Fasting BSG trending upward the past 48 hours. Will increase basal insulin to 25 units QAM, which patient tolerated earlier this admission. * Novolog CF and CR were loosened yesterday following lunch BSG of 67 mg/dL. Subsequent post prandial BSGs were elevated. Will slightly tighten today. 07/23 * Fasting 190 mg/dL this morning- received 18 units of basal yesterday, continued with this this morning, monitor trend for increase * BSGs within range with exception of HS yesterday, however, hypoglycemic at lunch today. Loosened novolog coverage for now. 07/21 * PMH diffuse Large B-cell lymphoma, hypothyroidism, DM2, HLD, and HTN admitted with UTI. * Miguel required 31 units of SQ insulin yesterday with adequate glycemic control, 25 units Lantus + 6 units of Novolog. * Fasting BSG trending downward (174 -> 118 mg/dL) and current regimen is very basal heavy. Will decrease Lantus ~25%. * No changes to Novolog per minimal CHO intake yesterday PLAN FOR INPATIENT GLYCEMIC CONTROL: * Hold outpatient oral diabetes medications * Basal insulin * Lantus 25 units SQ qAM * Bolus insulin * NovoLog per scale ACHS or Q6hrs while NPO * Goal Range: Low 110 mg/dL - High 140 mg/dL * Correction Factor: 25 mg/dL/unit * Nutritional / Prandial insulin per carb ratio of 1 unit per 8 grams CHO consumed
--- NOTE | 2024-07-24 16:18 | Hospitalist Progress Note ---
Date of Service July 24, 2024 Assessment & Plan (1) UTI (urinary tract infection): (2) Pyelonephritis: Plan: Acute pyelonephritis/Cystitis H/O ESBL E.coli Possible sepsis --CT ABD:Pyelonephritis and cystitis. Moderately distended gallbladder. This can be related to prolonged fasting. Correlate clinically. Macro impression large amounts of formed stool throughout the redundant colon without obstruction or thickening. -- Blood culture negative to date --Urine culture grew ESBL E. coli --Normal lactic acid level Continue IV ertapenem IV fluids as needed Appreciate ID input: Recommends IV ertapenem 1 g daily to complete 14-day course through 08/04/2024 Plan to discharge once IV antibiotics arranged likely tomorrow. Prescription given to case management Constipation CT abdomen as above Continue bowel regimen Minimize narcotics as able Encouraged to ambulate Hypomagnesemia Replace and monitor Chronic pain on percocet at home [employer] Hypothyroidism Continue levothyroxine DM II HbA1c 6.7 Takes Ozempic/Jardiance/metformin -Hold oral regimen Will discontinue Jardiance on discharge given recurrent UTI/pyelo Continue insulin per protocol Monitor BGs HTN Hold lisinopril given low blood pressure Monitor blood pressure Likely hold lisinopril on discharge as well Hyperlipidemia On statin Diffuse large B-cell lymphoma Follows w/ [facility] Dr. Archibald -Consulted during recent last admission as pt was neutropenic - at that time plan was for bone marrow biopsy to be arranged as outpt -Plan for PET scan as outpt Appreciate oncology input DVT Px: Lovenox SQ CODE STATUS Full code Admission and Anticipated Discharge Date Admission Date: July 20, 2024 Subjective Patient is seen and examined at bedside Patient offers no new complaints today Abdominal pain resolved Eager to get discharged Denies any chest pain, dyspnea, nausea, vomiting Review of Systems Review of Systems: All systems reviewed & are unremarkable except as noted in Subjective Physical Exam Physical Exam: Physical Exam: Vitals signs as noted above General Appearance:Moderately built and nourished, no apparent distress Head: normocephalic, Atraumatic Eyes: normal inspection, EOMI Neck: supple, Trachea midline Respiratory/Chest: Normal breath sounds, CTA, No accessory muscle use Cardiovascular: S1, S2, No murmur Abdomen/GI:Soft, tender lower quadrants, Bowel sounds present Extremities/Musculoskeletal:normal inspection, no edema Neurologic/Psych:AAOX3, grossly no focal neurological deficits Skin: normal color, warm Results & Data Results & Data Vital Signs (Past 12 Hours) Vital Signs Temp Pulse Resp BP BP Pulse Ox O2 Del Method 07/24/24 09:55 104/70 07/24/24 08:04 96/62 L 07/24/24 07:44 36.3 C L 69 16 95/62 L 90/56 L 94 Room Air (1) UTI (urinary tract infection) Urinary tract infection type: site unspecified
[2024-07-25] MEDS: LORATADINE 10 MG TAB PO ONE (00:17)
[2024-07-25 06:41] LABS: Hematocrit (blood only) 29.8 % (37.0-47.0); Hemoglobin 10.1 g/dl (12.0-16.0); Mean Corpuscular Hemoglobin 31.9 pg (25.0-34.0); Mean Corpuscular Hgb Conc 33.9 g/dL (32.0-36.0); Mean Platelet Volume 8.9 fL (9.4-12.4); Platelet Count 200 K/uL (130-400); RDW Coefficient of Variation 13.3 % (11.5-14.5); Red Blood Count 3.17 M/uL (4.20-5.40); White Blood Count 3.09 K/ul (4.8-10.8)
[2024-07-25 06:42] LABS: Calcium 8.8 mg/dl (8.6-10.3); Potassium 3.9 mmol/L (3.5-5.1)
[2024-07-25 07:55] VITALS: BP 128/82; PULSE 79; RESP 16; TEMP 98.8; O2SAT 95
--- NOTE | 2024-07-25 09:12 | Discharge Summary ---
Date of Service July 25, 2024 Admission HPI Per Admitting Provider 59 F with hx of Diffuse Large B-cell lymphoma (follows w/ [facility] Dr. Archibald), hypothyroidism, DM2, HLD, HTN who was seen by PCP on 07/18 for UTI symptoms. She was contacted and advised to present to Ed as her urine cultx was found positive for ESBL E.coli. Pt reports having fever this AM 102.5 F. Reports abdominal pain radiating to her legs and taking percocent at home. In the BP was low, she received NS and was started on Ertapenem. CT abd pelvis obtained and consistent w/ pyelonephritis. For pain she received fentanyl 50 x2 in the ED. She says it worked initially but when she moves she is in pain again. Admission Exam Per Admitting Provider General- WD/WN F, uncomfortable, in pain HEENT - NC/AT, EOMI Lungs- clear breath sounds b/l, no rales/wheezes Heart- normal rate, regular rhythm; no murmurs Abdomen- +bowel sounds, + some distention, tender Neuro- alert, oriented x 3; no gross focal neurologic deficits Skin- warm & dry Principal Diagnosis ESBL E.coli UTI Discharge Exam General Appearance:Moderately built and nourished, no apparent distress Head: normocephalic, Atraumatic Eyes: normal inspection, EOMI Neck: supple Respiratory/Chest: Normal breath sounds, CTA, No accessory muscle use Cardiovascular: S1, S2, No murmur Abdomen/GI:Soft, nontender Extremities/Musculoskeletal:normal inspection, no edema Neurologic/Psych:AAOX3, grossly no focal neurological deficits Skin: normal color, warm Discharge Data Allergies Allergy/AdvReac Type Severity Reaction Status Date / Time adhesive tape Allergy Mild Rash/Itchin Verified 06/25/24 15:52 ess Consultations 07/20/24 17:35 ED Decision to Admit Stat 07/23/24 07:00 Consult Infectious Diseases Routine Ordered Studies 07/20/24 14:16 CT abd pelvis IV con only Stat FINDINGS: Limitations: None. Lung bases: No abnormality noted. Pleural space: No visualized pleural effusion or pneumothorax. Heart: No abnormality noted. Mediastinum: Stable small hiatal hernia. ABDOMEN: Liver: No abnormality noted. Gallbladder and bile ducts: The gallbladder is moderate to markedly distended. No calcified stones. No ductal dilatation. No gas. Pancreas: Homogeneous enhancement. No mass, inflammation or ductal dilation. Spleen: No significant abnormality noted. Adrenals: No significant abnormality noted. Kidneys and ureters: There is right greater than left diffuse urothelial thickening of the urinary tracts. No stone, gas or hydronephrosis. Simple right renal cyst/s. No simple cyst follow-up necessary. Left kidney appears normal. No renal stone, hydronephrosis or perinephric fluid. Stomach and bowel: Moderate to large amounts of stool throughout the redundant colon. PELVIS: Appendix: No findings to suggest acute appendicitis. Bladder: There is mild thickening of the urinary bladder. No stone or gas. Reproductive: No abnormalities noted. ABDOMEN and PELVIS: Intraperitoneal space: No free air. No significant fluid collection. Bones/joints: Degenerative changes noted in the spine. Chronic appearing superior endplate compression deformity of L3. No acute osseous abnormality. Soft tissues: There are small bilateral fat containing inguinal hernias. Intact ventral hernia repair. Vasculature: Atherosclerotic calcification of the aorta and branches. No aneurysm. Lymph nodes: No pathologically enlarged lymph nodes. IMPRESSION: 1. Pyelonephritis and cystitis. 2. Moderately distended gallbladder. This can be related to prolonged fasting. Correlate clinically. Macro impression large amounts of formed stool throughout the redundant colon without obstruction or thickening. Hospital Course (1) UTI (urinary tract infection): (2) Pyelonephritis: Acute pyelonephritis/Cystitis H/O ESBL E.coli Possible sepsis --CT ABD:Pyelonephritis and cystitis. Moderately distended gallbladder. This can be related to prolonged fasting. Correlate clinically. Macro impression large amounts of formed stool throughout the redundant colon without obstruction or thickening. -- Blood culture negative to date --Urine culture grew ESBL E. coli --Normal lactic acid level Continue IV ertapenem IV fluids as needed Appreciate ID input: Recommends IV ertapenem 1 g daily to complete 14-day course through 08/04/2024 case management involved Constipation CT abdomen as above Continue bowel regimen Minimize narcotics as able Encouraged to ambulate Hypomagnesemia Replace and monitor Chronic pain on percocet at home [employer] Hypothyroidism Continue levothyroxine DM II HbA1c 6.7 Takes Ozempic/Jardiance/metformin -Hold oral regimen Will discontinue Jardiance on discharge given recurrent UTI/pyelo Continue insulin per protocol Monitor BGs HTN Hold lisinopril given low blood pressure Monitor blood pressure hold lisinopril on discharge - follow up w/ PCP Hyperlipidemia On statin Diffuse large B-cell lymphoma Follows w/ [facility] Dr. Archibald -Plan for PET scan as outpt Appreciate oncology input Total Time Total Time Spent Total Time Spent (In Minutes): 40 Discharge Plan Discharge Items Patient Disposition: Home - Home Health Services Reason For Visit: UTI, SEPSIS Discharge Diagnosis: ESBL E.coli UTI Activity: Per Instructions section Non-emergency contact: Primary Care Provider Call non-emergency contact if: you have any medication questions and your symptoms worsen Follow-up/Referrals: Héctor Johnson MD [Primary Care Provider] - (Date & Time 07/31/2024 10:00 AM Provider: Héctor Johnson MD [facility] ) Diet: Carb Consistent or DM2 Addtl Attending Provider Instructions: Follow up with your primary care doctor and your oncologist. The appointment with you primary care doctor was set up for you for 07/31/2024. Finish Ertapenem, as prescribed through 08/04/2024. Pending Studies at Discharge: No Stand-Alone Forms: [facility] [employer], Smoking Cessation Medications and DC Order Prescriptions: New magnesium chloride [Mag 64] 64 mg Tablet,Delayed Release (Dr/Ec) 64 mg PO DAILY Qty: 14 0RF Continued solifenacin [Vesicare] 10 mg tablet 10 mg PO QAM metformin 1,000 mg Tablet 1,000 mg PO BID Qty: 0 aspirin 81 mg Tablet,Delayed Release (Dr/Ec) 81 mg PO QAM Qty: 0 citalopram 20 mg Tablet 20 mg PO QAM Qty: 0 atorvastatin [Lipitor] 20 mg Tablet 20 mg PO HS Qty: 0 insulin degludec [Tresiba FlexTouch U-100] 100 unit/mL (3 mL) insulin pen 32 unit SUBCUT HS omeprazole 40 mg capsule,delayed release(DR/EC) 40 mg PO QAM Ozempic 1 mg/dose (4 mg/3 mL) pen injector 1 mg SUBCUT Q7D Rx Instructions: Tuesday levothyroxine 150 mcg tablet 150 mcg PO QAM alendronate 70 mg tablet 70 mg PO Q7D Rx Instructions: cranberry 500 mg Capsule 500 mg PO QAM Qty: 0 Rx Instructions: administer with meals apple cider vinegar 500 mg Tablet 500 mg PO QAM Qty: 0 tizanidine 4 mg tablet 4 mg PO BID PRN (Reason: Spasms) oxycodone-acetaminophen 5-325 mg tablet 1 tab PO Q6H PRN (Reason: pain or fever) diphenhydramine HCl [Benadryl] 25 mg Capsule 25 mg PO HS fluoride (sodium) 1.1 % paste 1 applic dental DAILY melatonin 10 mg Tablet 20 mg PO HS gabapentin 300 mg capsule 300 mg PO BID Rx Instructions: Pt states that MD has not refilled this, but is supposed to be taking it. Original Directions: 300mg by mouth twice daily Advanced Probiotic 625 mg (10 billion cell) Capsule 1 cap PO DAILY Qty: 14 0RF (DME) blood-glucose meter [Biom'Upuch Verio Flex meter] Misc See Rx Instructions .Route Qty: 1 0RF Rx Instructions: check 2x a day gabapentin 100 mg capsule 100 mg PO BID Qty: 14 0RF Held nitrofurantoin monohyd/m-cryst [Macrobid] 100 mg capsule 100 mg PO DAILY Hold Instructions: Resume on 08/04/24. Rx Instructions: Per patient, this was 100mg po bid x 2 months then 100mg po daily for UTI prevention but ran out of refills. Original Directions: 100mg by mouth daily lisinopril 10 mg tablet 10 mg PO QAM Qty: 0 Hold Instructions: Resume on 08/01/24. discuss w/ your primary care doctor if/ when to resume Patient Comments: currently on hold Discontinued Jardiance 25 mg tablet 25 mg PO QAM Discharge Orders: Discharge Order (Routine); Ordered 07/25/24 Ordered By: Vladimir Delaney/Other Patient Handouts: Urinary Tract Infections in Women, UTIs Admission Data Admit Date/Time: 07/20/24 17:59 Attending Provider: Vladimir Curiel Admit Provider: Vladimir Curiel Primary Care Provider: Héctor Johnson Other Providers: Vladimir Curiel; Carlos Soares; Richelle Choi; [place] Kim I.; Tereso Guillaume II; Suzie Gonzales; Yung Rebolledo; Herbert Trinh; Rk López; Kole Wang; Kendell Montenegro; Titi Preston; [facility]; [facility]
== END 2024-07-25 11:06 | disposition home health service (06) | DRG 872 ==
LOC: ED 13:23 → EDINP 17:59 → SUATTDRO 17:59 → 2E 20:34 → 3E 07-23 17:13